=== PATIENT | male | born 1975 | race Caucasian/White ===

== ENCOUNTER 2017-06-24 09:30 | Emergency (ER) | payer MEDICAID, SELFPAY ==
[2017-06-24 09:33] VITALS: BP 126/100; PULSE 104; RESP 16; TEMP 37.1; O2SAT 97; BMI 29.9
--- NOTE | 2017-06-24 10:26 | ED.DCSUM_ITS ---
- ER Visit Summary Date of Service: 06/24/17 Chief Complaint: [Sore throat] History of Present Illness: The patient is a 42 M [presents to the emergency department with a sore throat that started yesterday. Patient denies cough. Patient has had some chills and subjective fever. He denies any sick contacts. Patient describes painful swallowing.] Physical Examination: [HEENT-PERRLA, EOMI. Cranial nerves II through XII grossly intact. TMs clear. Mucous membranes moist. Bilateral anterior cervical adenopathy. Patient has pharyngeal erythema. No trismus. Small tonsillar exudates. Cardiovascular-regular rate and rhythm without murmur or ectopy Lungs-clear to auscultation, chest wall stable without crepitus or subcu emphysema Abdomen-normoactive bowel sounds, soft, nontender, no rebound or rigidity, no peritoneal signs. Extremities-intact ?4, normal range of motion, normal pulses, atraumatic] Test Results: [Rapid strep screen was positive] Emergency Department Course and Treatment: [Patient was started on amoxicillin] Treatment Plan: [Amoxicillin, saltwater gargles, ibuprofen for discomfort] Disposition: [Discharged to home in stable condition. Patient advised to return if increased difficulty swallowing or condition should worsen in any way. ] Impression: [Strep pharyngitis] This note was generated with [employer] dictation software. It may contain incorrect words, spelling, and punctuation that were not noted in review of the chart prior to signing ED Disposition - Plan for ED Patient: Chief Complaint: Sore Throat Referrals: Care Physician,No Primary [Primary Care Provider] -
--- NOTE | 2017-06-24 10:26 | ED.DEP ---
ED Disposition - Plan for ED Patient: Chief Complaint: Sore Throat Instructions: ED Strep Pharyngitis Conf Prescriptions: Amoxicillin 500 mg PO TID #30 tab Referrals: Care Physician,No Primary [Primary Care Provider] - Grady Steen MD [STAFF PHYSICIAN] - 5-7 Days
[2017-06-24] MEDS: AMOXICILLIN 500 MG CAPSULE PO (10:34)
[2017-06-24 10:36] VITALS: BP 134/97; PULSE 74; RESP 22; O2SAT 98
--- NOTE | 2017-06-24 10:36 | ED.RN ---
THIS NURSE REVIEWED D/C INSTRUCTIONS WITH PT. PT VERBALIZED UNDERSTANDING OF INSTRUCTIONS. PT DENIES FURTHER NEEDS OR QUESTIONS AT THIS TIME. PT AMBULATES FROM ROOM ON OWN WITHOUT ASSISTANCE FROM STAFF
== END 2017-06-24 10:37 | disposition home or self-care (01) ==
LOC: ED 10:05
PROVIDERS: Emergency Provider Emergency Medicine
DX: J02.0 Streptococcal pharyngitis (principal); Z72.0 Tobacco use
CPT/HCPCS: 87077; 87880; 99283

== ENCOUNTER 2017-07-06 14:54 | Emergency (ER) | payer MEDICAID, SELFPAY ==
[2017-07-06 14:59] VITALS: BP 158/103; PULSE 105; RESP 24; TEMP 36.7; O2SAT 97; BMI 29.9
--- NOTE | 2017-07-06 15:22 | EKG12_ITS ---
Test Reason : Blood Pressure : / mmHG Vent. Rate : 103 BPM Atrial Rate : 103 BPM P-R Int : 162 ms QRS Dur : 096 ms QT Int : 346 ms P-R-T Axes : 048 045 042 degrees QTc Int : 453 ms Sinus tachycardia with occasional Premature ventricular complexes Otherwise normal ECG Confirmed by SWEETIE ALLEN ([id number]), marketing editor YASMIN TURK ([id number] on 07/09/2017 1:32:07 PM Referred By: TORI Confirmed By:SWEETIE ALLEN
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
[2017-07-06 16:34] VITALS: RESP 15
--- NOTE | 2017-07-06 16:55 | ED.DEP ---
ED Disposition - Plan for ED Patient: Disposition: Home or Assisted Living Chief Complaint: Subst Abuse Instructions: ED Drug Abuse General Referrals: Rachid Cary MD [NON-STAFF] - As Needed Additional Instructions: I would strongly encourage you to do either outpatient or inpatient drug counseling and detox.
[2017-07-06 17:02] VITALS: BP 170/99; PULSE 103; RESP 20; O2SAT 95
== END 2017-07-06 17:02 | disposition home or self-care (01) ==
PROVIDERS: Emergency Provider Emergency Medicine
DX: F15.10 Other stimulant abuse, uncomplicated (principal); Z72.0 Tobacco use
CPT/HCPCS: 93005; 99285

== ENCOUNTER → 2017-08-21 07:32 | Outpatient (CLI) | payer MEDICAID, SELFPAY | PROVIDERS: Visit Provider Orthopaedic Surgery | DX: Z01.818 Encounter for other preprocedural examination (principal) ==

== ENCOUNTER 2017-11-01 23:08 | Emergency (ER) | payer MEDICAID, SELFPAY ==
[2017-11-01 23:10] VITALS: BP 160/117; PULSE 92; RESP 20; TEMP 36.8; O2SAT 96; BMI 29.5
[2017-11-02 00:18] LABS: Absolute Lymphocyte Count 2.74 X10^3/ul (0.83-4.51); Absolute Neutrophil Count 3.5 X10^3/uL (2.0-7.7); Basophil# 0.03 X10^3/uL; Basophil% 0.4 % (0-1); Eosinophils% 2.7 % (0-5); Hematocrit 41.5 % (40-54); Hemoglobin 14.4 g/dl (13.0-16.5); Lymphocyte # 2.74 X10^3/ul (4.0); Lymphocyte % 37.2 % (19-41); Mean Corp Hgb Conc 34.7 g/gl (32-36); Mean Corpuscular Volume 86.5 fL (80-94); Mean Platelet Vol. 10.3 fl (6.2-12.0); Monocyte# 0.85 X10^3/uL; Monocyte% 11.5 % (0-10); Neutrophil # 3.54 X10^3/uL (2.7-7.7); Neutrophil % 48.1 % (47-70); Platelet Count 204 K/mm3 (150-450); RBC Distribution Width SD 37.8 fl (35.1-43.9); White Blood Count 7.4 K/mm3 (4.4-11.0)
[2017-11-02 00:23] LABS: POSITIVE COUNT NO; POSITIVE DIFFERENTIAL NO; POSITIVE MORPHOLOGY NO
[2017-11-02 00:31] LABS: Amphetamine Urine VISTA POSITIVE (<1000 ng/mL); Barbiturate Urine VISTA NEGATIVE (< 200 ng/mL); Benzodiazepine Urine VISTA POSITIVE (< 200 ng/mL); Cocaine Urine VISTA NEGATIVE (< 300 ng/mL); Ecstacy Urine VISTA POSITIVE (< 500 ng/mL); Methadone Urine VISTA NEGATIVE (< 300 ng/mL); PCP Urine VISTA NEGATIVE (< 25 ng/mL); THC Urine VISTA NEGATIVE (< 50 ng/mL); Vista UDS pH Range 5
[2017-11-02 00:38] LABS: ALB/GLOB Ratio 1.3 RATIO (0.9-2.4); AST(SGOT) 24 U/L (15-37); Alanine Aminotransfer ALT/SGPT 30 U/L (16-61); Albumin, Serum 4.2 g/dL (3.2-5.0); Alkaline Phosphatase 69 U/L (45-117); Anion Gap 7 (5-15); BUN 15 mg/dL (7-18); BUN/Creat Ratio 11.6 RATIO (10-20); Calcium,Total 8.7 mg/dL (8.5-10.1); Chloride 106 mmol/L (98-107); Creatinine, Serum 1.29 mg/dL (0.70-1.30); EST Glomerular Filtration Rate 65 mL/min (>60); Est Glom Filt Rate - Afr Amer 79 mL/min (>60); Estimated Creatinine Clearance 94.97 ml/min; Globulin 3.2 g/dL (2.2-4.2); Glucose 96 mg/dL (74-106); Protein, Total 7.4 g/dL (6.4-8.2); Sodium Level 142 mmol/L (136-145)
[2017-11-02 00:40] LABS: Alcohol, Blood (Medical)-Serum < 3.0 mg/dL
[2017-11-02 00:57] VITALS: BP 129/73; PULSE 92; RESP 17; O2SAT 96
--- NOTE | 2017-11-02 00:59 | ED.DCSUM_ITS ---
- ER Visit Summary Date of Service: 11/02/17 Chief Complaint: Meth abuse and hallucinations History of Present Illness: The patient is a 42 M who presents with hallucinations. He has a history of polysubstance drug abuse. He does admit to methamphetamine use although he states he is no longer using heroin. The patient states that he was with his brother and stated he had seen a police car and his brother explained that there was not a police car. After I spoke to the family they state that he was also stating there were multiple police officers hiding in the bushes and was trying to speak to someone over the fence when no one was there. The patient denies any suicidal or homicidal ideation. He does not feel he is risk to himself. Family agrees that he has made no suicidal threats and has no suicidal plan and they were concerned that he may be having a psychotic break due to his drug use. The patient denies any medical complaints. He denies chest pain shortness of breath nausea vomiting diarrhea. Physical Examination: Afebrile initial blood pressure 160/117 vitals otherwise normal Moist mucous membranes Heart regular rate and rhythm Lungs clear Abdomen soft Alert Test Results: CBC BMP hepatic function normal. Urine drug screen positive for amphetamines methamphetamines and benzodiazepines. Alcohol is negative. Emergency Department Course and Treatment: Patient actually has been calm and cooperative throughout his course here in the emergency department. He is able to answer questions clearly for me currently. He is alert and oriented ?3. He does not appear to be internally stimulated. I do believe all of his delusions and paranoia earlier were related to drug abuse. I do believe he can be safely discharged at this time. Treatment Plan: [] Disposition: Discharge Impression: Polysubstance abuse Drug-induced psychosis This note was generated with [employer] dictation software. It may contain incorrect words, spelling, and punctuation that were not noted in review of the chart prior to signing ED Disposition - Plan for ED Patient: Chief Complaint: Alt LOC Referrals: Peggy Jeffrey NP-C [Primary Care Provider] -
--- NOTE | 2017-11-02 00:59 | ED.DEP ---
ED Disposition - Plan for ED Patient: Chief Complaint: Alt LOC Instructions: ED Drug Abuse General Referrals: Peggy Jeffrey NP-C [Primary Care Provider] -
[2017-11-02 01:27] VITALS: BP 129/73; PULSE 91; RESP 17; O2SAT 96
== END 2017-11-02 01:28 | disposition home or self-care (01) ==
LOC: ED 23:44
PROVIDERS: Emergency Provider Emergency Medicine; Family Provider Nurse Practitioner Family; PCP Nurse Practitioner Family
DX: F15.151 Other stimulant abuse with stimulant-induced psychotic disorder with hallucinations (principal); F13.151 Sedative, hypnotic or anxiolytic abuse with sedative, hypnotic or anxiolytic-induced psychotic disorder with hallucinations; F15.150 Other stimulant abuse with stimulant-induced psychotic disorder with delusions; F13.1 Sedative, hypnotic or anxiolytic-related abuse
CPT/HCPCS: 80053; 80307; 80320; 85025; 99282; G0480

== ENCOUNTER 2018-04-04 12:25 | Inpatient (IN) | payer MEDICAID, SELFPAY ==
[2018-04-04 12:29] VITALS: BP 110/72; PULSE 100; RESP 16; TEMP 36.7; O2SAT 98; BMI 30.9
[2018-04-04] MEDS: Acetaminophen 500 MG Tablet 1000 MG PO ×2 (13:41→20:16)
[2018-04-04] MEDS: oxyCODONE 5 MG Tablet 10 MG PO ×3 (13:42→21:37)
[2018-04-04] MEDS: fentaNYL 25 MCG Patch TRANSDERM. (13:45)
[2018-04-04 15:00] VITALS: PULSE 100
[2018-04-04] MEDS: Gabapentin 300 MG Capsule PO (18:06)
[2018-04-04] MEDS: Senna/Docusate Sodium 1 Tablet 2 TABLET PO (20:17)
[2018-04-04] MEDS: Celecoxib 100 MG Capsule PO (20:17)
[2018-04-04] MEDS: hydrOXYzine PAM 25 MG Capsule PO (20:17)
[2018-04-04 20:33] VITALS: BP 149/79; PULSE 100; RESP 16; TEMP 36.6; O2SAT 98
[2018-04-05] MEDS: oxyCODONE 5 MG Tablet 10 MG PO ×8 (00:55→23:31)
--- NOTE | 2018-04-05 00:59 | NURSING ---
Refusing SCDs - states I can't sleep with them on Also states I keep moving my legs around anyways. Very resistant to wearing. Informed that SCDs help to prevent blood clots. Refuses at this time to wear SCDS
[2018-04-05] MEDS: Acetaminophen 500 MG Tablet 1000 MG PO ×3 (06:11→20:29)
[2018-04-05 06:19] LABS: Absolute Lymphocyte Count 2.81 X10^3/ul (0.83-4.51); Basophil# 0.03 X10^3/uL; Basophil% 0.3 % (0-1); Eosinophil# 0.33 X10^3/uL; Eosinophils% 3.8 % (0-5); Hematocrit 39.3 % (40-54); Hemoglobin 12.9 g/dl (13.0-16.5); Lymphocyte # 2.81 X10^3/ul (4.0); Mean Corp Hgb Conc 32.8 g/gl (32-36); Mean Corpuscular Hgb 28.9 pg (27.0-32.0); Mean Corpuscular Volume 87.9 fL (80-94); Mean Platelet Vol. 10.2 fl (6.2-12.0); Monocyte# 0.58 X10^3/uL; Monocyte% 6.6 % (0-10); Neutrophil # 5.02 X10^3/uL (2.7-7.7); Neutrophil % 57.1 % (47-70); Platelet Count 224 K/mm3 (150-450); RBC Distribution Width CV 12.9 % (11.6-14.6); RBC Distribution Width SD 41.7 fl (35.1-43.9); Red Blood Count 4.47 M/mm3 (4.6-6.2); White Blood Count 8.8 K/mm3 (4.4-11.0)
[2018-04-05 06:24] LABS: POSITIVE COUNT NO; POSITIVE DIFFERENTIAL NO; POSITIVE MORPHOLOGY NO
[2018-04-05 06:35] LABS: Anion Gap 8 (5-15); BUN 12 mg/dL (7-18); BUN/Creat Ratio 18.7 RATIO (10-20); Calcium,Total 8.5 mg/dL (8.5-10.1); Chloride 106 mmol/L (98-107); Creatinine, Serum 0.64 mg/dL (0.70-1.30); EST Glomerular Filtration Rate 146 mL/min (>60); Est Glom Filt Rate - Afr Amer 176 mL/min (>60); Estimated Creatinine Clearance 189.49 ml/min; Glucose 101 mg/dL (74-106); Magnesium 2.1 mg/dL (1.6-2.6); Potassium 3.9 mmol/L (3.5-5.1); Sodium Level 141 mmol/L (136-145)
[2018-04-05 06:47] LABS: Phosphorus 4.5 mg/dL (2.5-4.9)
[2018-04-05 07:00] VITALS: BP 122/71; PULSE 88; RESP 16; TEMP 37.1; O2SAT 99
[2018-04-05] MEDS: Gabapentin 300 MG Capsule PO ×2 (07:32→16:37)
[2018-04-05] MEDS: Senna/Docusate Sodium 1 Tablet 2 TABLET PO ×2 (07:32→20:30)
[2018-04-05] MEDS: Celecoxib 100 MG Capsule PO ×2 (07:32→20:30)
[2018-04-05] MEDS: Famotidine 20 MG Tablet PO (07:32)
[2018-04-05] MEDS: Multivitamins,Ther W-Minerals Tablet 1 TABLET PO (07:32)
[2018-04-05] MEDS: Ascorbic Acid 500 MG Tablet PO (07:32)
[2018-04-05] MEDS: Enoxaparin 40 MG/0.4 ML Syringe SC (07:33)
[2018-04-05] MEDS: Calcium Carbonate 500 MG Tablet PO (07:33)
[2018-04-05 09:06] LABS: Vitamin D,25 Hydroxy 38.6 ng/mL (29.95-100.01)
--- NOTE | 2018-04-05 10:37 | HP.PCM.COS_ITS ---
History of Present Illness Date of Admission: 04/04/18 Chief Complaint: Bilateral Total Knee Replacement The patient is a 43 year old right handed male, who is admitted to the rehab unit for rehabilitation, s/p bilateral total knee replacement at the [facility] by Dr. Rashel Travis. Post Op recovery was uneventful. He has a PMH of Osteoarthritis, and Opioid abuse, which he is on Suboxone for. He is WBAT, he has Silverlon dressing to bilateral knees, dressings are C/D/I, dressings are to be removed 04/08/18. He lives with his brother in a single story home with 3 steps to get into the house. The plan is to return home to his mother house which is also a single story dwelling with 3 steps to get into the home. He was previously completely functionally independent and is admitted to the rehab unit in order to restore his previous level of functional independence. Past Medical History Allergies No Known Allergies Allergy (Verified 07/04/17 09:39) Home Medications: Ambulatory Orders Medication Instructions Recorded Buprenorphine HCl/Naloxone HCl 1 ea SL BID 07/30/14 [Suboxone 2 mg-0.5 mg Sl Film] Celecoxib [Celebrex] 100 mg PO BID 06/24/17 Acetaminophen [Tylenol Extra 1,000 mg PO TID 04/04/18 Strength] Ascorbic Acid [Vitamin C] 500 mg PO DAILY@0800 04/04/18 Cholecalciferol (VIT D3) [Vitamin 1,000 unit PO DAILY 04/04/18 D] Gabapentin [Neurontin] 300 mg PO BIDCM 04/04/18 Multivitamins,Ther W-Minerals 1 tablet PO DAILY 04/04/18 [Multivitamin With Minerals] Nicotine [Nicoderm Cq (PBKC)] 21 mg TRANSDERM. DAILY 04/04/18 Oxycodone [Oxyir] 10 mg PO Q3H PRN 04/04/18 fentaNYL patch [Duragesic patch] 25 mcg TRANSDERM. Q72H 04/04/18 hydrOXYzine pamoate capsule 25 mg PO QHS 04/04/18 [Vistaril pamoate capsule] Surgical History: Surgical History (Last Updated 07/04/17 @ 09:46 by Patito Love) S/P left knee surgery Z98.890 ACL meniscus repair 2009 Surgical History: - - Anterior cruciate ligament repair 2008, and Mouth surgery 2006 Psychiatric History: Anxiety Lives: With Family Smoking Status: Current every day smoker Tobacco Use: Cigarettes Alcohol: Occasional Drugs: - - H/O opioid abuse Review of Systems Constitutional: Denies: Chills, Fever, Weight Change HEENT: Denies: Head Aches, Sinus Congestion, Sinus Drainage Cardiovascular: Denies: Chest Pain, Palpitations Respiratory: Denies: Cough, Shortness of breath at rest, Sputum production Gastrointestinal: Denies: Abdominal Pain, Nausea, Vomiting Genitourinary: Denies: Dysuria Musculoskeletal: Denies: Joint Pain, Joint Tenderness Skin: Denies: Rash, Wounds Neurological: Denies: Numbness, Tingling, Focal weakness Psychiatric: Denies: Anxiety, Depression, Homicidal Ideations, Suicidal Ideations Hematologic/ Lymphatic: Denies: Easy Bruising, Easy Bleeding VTE Information - Inpt Only VTE Present on Admission: No VTE Mechan Device Prophylaxis: Knee High DARRYL Hose VTE Pharm Prophylaxis ordered?: Yes - Physical Exam General: Alert, Oriented x3, Cooperative HEENT: Atraumatic, PERRLA, EOMI, Normocephalic Neck: Supple, No JVD, Negative Carotid Bruits Lungs: Clear to auscultation, Normal air movement Cardiovascular: Regular rate, No murmurs Abdomen: Bowel Sounds Present, Soft, Non Tender Extremities: No edema, Capillary Refill Less than 3 Seconds Skin: No rashes, No breakdown Musculoskeletal: No Tenderness to Palpation of Joints or Extremities Neurological: Cranial nerves II-XII grossly intact Psych/Mental Status: Normal Affect, Appropriate, Alert and oriented to time, place, person, mood and affect Vital Signs Temp Pulse Resp BP Pulse Ox 98.8 F 88 16 122/71 H 99 04/05/18 07:00 04/05/18 07:00 04/05/18 07:00 04/05/18 07:00 04/05/18 07:00 Oxygen Delivery Method Room Air Weight: 118.3 kg Body Mass Index (BMI) 30.9 Intake and Output for Last 24 Hours 04/03/18 04/04/18 04/05/18 23:59 23:59 23:59 Intake Total 360 / 360 Output Total 800 / 800 450 / 450 Balance -800 / -800 -90 / -90 Laboratory Tests Past 24 Hrs 04/05/18 04/05/18 04/05/18 05:25 05:25 05:25 WBC 8.8 RBC 4.47 L Hgb 12.9 L Hct 39.3 L MCV 87.9 MCH 28.9 MCHC 32.8 RDW 12.9 RDW Differential 41.7 Plt Count 224 MPV 10.2 Immature Gran % (Auto) 0.200 Neut % (Auto) 57.1 Lymph % (Auto) 32.0 [place] % (Auto) 6.6 Eos % (Auto) 3.8 Baso % (Auto) 0.3 Absolute Neuts (auto) 5.0 Absolute Lymphs (auto) 2.81 Total Counted Not Reportable Sodium 141 Potassium 3.9 Chloride 106 Carbon Dioxide 27.0 Anion Gap 8 BUN 12 Creatinine 0.64 L Estim Creat Clear Calc 189.49 Est GFR (MDRD) Af Amer 176 Est GFR (MDRD) Non-Af 146 BUN/Creatinine Ratio 18.7 Glucose 101 Calcium 8.5 Phosphorus 4.5 Magnesium 2.1 Vitamin D 25-Hydroxy 04/05/18 05:25 WBC RBC Hgb Hct MCV MCH MCHC RDW RDW Differential Plt Count MPV Immature Gran % (Auto) Neut % (Auto) Lymph % (Auto) [place] % (Auto) Eos % (Auto) Baso % (Auto) Absolute Neuts (auto) Absolute Lymphs (auto) Total Counted Sodium Potassium Chloride Carbon Dioxide Anion Gap BUN Creatinine Estim Creat Clear Calc Est GFR (MDRD) Af Amer Est GFR (MDRD) Non-Af BUN/Creatinine Ratio Glucose Calcium Phosphorus Magnesium Vitamin D 25-Hydroxy 38.6 Active Medications Acetaminophen (Tylenol) 1,000 mg PO TID [facility] Last Admin: 04/05/18 06:11 Dose: 1,000 mg Ascorbic Acid (Vitamin C) 500 mg PO DAILY@0800 [facility] Last Admin: 04/05/18 07:32 Dose: 500 mg Bisacodyl (Dulcolax) 10 mg RECTAL .PRN X 1 PRN PRN Reason: Constipation Calcium Carbonate (Tums) 500 mg PO DAILY@0800 [facility] Last Admin: 04/05/18 07:33 Dose: 500 mg Celecoxib (Celebrex) 100 mg PO BID [facility] Last Admin: 04/05/18 07:32 Dose: 100 mg Cholecalciferol (Vitamin D) 1,000 unit PO DAILY [facility] Last Admin: 04/05/18 07:32 Dose: 1,000 unit Enoxaparin Sodium (Lovenox) 40 mg SC DAILY [facility] Last Admin: 04/05/18 07:33 Dose: 40 mg Famotidine (Pepcid) 20 mg PO DAILY [facility] Last Admin: 04/05/18 07:32 Dose: 20 mg Fentanyl (Duragesic Patch) 25 mcg TRANSDERM. Q72H [facility] Last Admin: 04/04/18 13:45 Dose: 25 mcg [facility]ap[facility]in) [facility] Last Admin: 04/05/18 07:32 Dose: 300 mg Hydroxyzine Pamoate (Vistaril Pamoate Capsule) 25 mg PO QHS [facility] Last Admin: 04/04/18 20:17 Dose: 25 mg Magnesium Hydroxide (Milk Of Magnesia) 30 ml PO .PRN X 1 PRN PRN Reason: Constipation Multivitamins/Minerals (Multivitamin With Minerals) [facility] Last Admin: 04/05/18 07:32 Dose: 1 tablet Nicotine (Nicoderm Cq (Pbkc)) 21 mg TRANSDERM. DAILY [facility] Last Admin: 04/05/18 08:38 Dose: 21 mg Oxycodone HCl (Oxyir) 10 mg PO Q3H PRN PRN Reason: SEVERE PAIN (6-10/10) Last Admin: 04/05/18 07:33 Dose: 10 mg Senna/Docusate Sodium (Senokot-S, Stefanie-Colace) 2 tablet PO BID [facility] Last Admin: 04/05/18 07:32 Dose: 2 tablet Assessment/Plan Debility S/P Bilateral total knee replacement. Goal goal of rehab is church of functional independence. Plan: - Physical therapy for gait and balance - Occupational Therapy for ADLs - As needed analgesics - Bowel protocol - DVT prophylaxis: SCDs, Lovenox - B/L TKA Incisions covered with Silverlon dressings, dressings are C/D/I, dressings are to be removed 04/08/18 - Tobacco dependence = nicotine patch for tobacco cravings - Weight bearing status => WBAT, BLE - Fall precaution
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
[2018-04-05 19:39] VITALS: BP 144/85; PULSE 103; RESP 16; TEMP 36.8; O2SAT 97
[2018-04-05] MEDS: hydrOXYzine PAM 25 MG Capsule PO (20:31)
[2018-04-06] MEDS: oxyCODONE 5 MG Tablet 10 MG PO ×7 (02:57→23:40)
[2018-04-06] MEDS: Acetaminophen 500 MG Tablet 1000 MG PO ×3 (06:32→21:55)
[2018-04-06 08:37] VITALS: BP 142/88; PULSE 92; RESP 16; TEMP 36.6; O2SAT 96
[2018-04-06] MEDS: Gabapentin 300 MG Capsule PO ×2 (10:08→17:07)
[2018-04-06] MEDS: Ascorbic Acid 500 MG Tablet PO (10:09)
[2018-04-06] MEDS: Multivitamins,Ther W-Minerals Tablet 1 TABLET PO (10:09)
[2018-04-06] MEDS: Calcium Carbonate 500 MG Tablet PO (10:09)
[2018-04-06] MEDS: Famotidine 20 MG Tablet PO (10:10)
[2018-04-06] MEDS: Senna/Docusate Sodium 1 Tablet 2 TABLET PO ×2 (10:10→20:28)
[2018-04-06] MEDS: Celecoxib 100 MG Capsule PO ×2 (10:10→20:28)
[2018-04-06] MEDS: Enoxaparin 40 MG/0.4 ML Syringe SC (10:12)
--- NOTE | 2018-04-06 15:47 | NURSING ---
Pt complaining of L. knee dressing is wet underneath from shower this AM requesting this RN to change. Dressing removed, incision is clean, dry and intact, no redness noted, incision is Dermabond, replaced with new dressing, pt tolerated well.
[2018-04-06 19:47] VITALS: BP 148/91; PULSE 89; RESP 16; TEMP 36.7; O2SAT 98
[2018-04-06] MEDS: hydrOXYzine PAM 25 MG Capsule PO (20:29)
--- NOTE | 2018-04-07 00:23 | NURSING ---
Pt ambulated around unit with walker and staff x1.
[2018-04-07] MEDS: oxyCODONE 5 MG Tablet 10 MG PO ×7 (02:54→22:45)
[2018-04-07] MEDS: Acetaminophen 500 MG Tablet 1000 MG PO ×3 (06:39→21:21)
[2018-04-07 06:57] VITALS: BP 136/89; PULSE 86; RESP 18; TEMP 36.6; O2SAT 98
[2018-04-07] MEDS: Calcium Carbonate 500 MG Tablet PO (09:25)
[2018-04-07] MEDS: Gabapentin 300 MG Capsule PO ×2 (09:26→16:14)
[2018-04-07] MEDS: Famotidine 20 MG Tablet PO (09:26)
[2018-04-07] MEDS: Ascorbic Acid 500 MG Tablet PO (09:26)
[2018-04-07] MEDS: Senna/Docusate Sodium 1 Tablet 2 TABLET PO (09:26)
[2018-04-07] MEDS: Celecoxib 100 MG Capsule PO ×2 (09:26→21:21)
[2018-04-07] MEDS: Multivitamins,Ther W-Minerals Tablet 1 TABLET PO (09:26)
[2018-04-07] MEDS: Enoxaparin 40 MG/0.4 ML Syringe SC (09:27)
[2018-04-07] MEDS: fentaNYL 25 MCG Patch TRANSDERM. (13:26)
--- NOTE | 2018-04-07 13:46 | PCA ---
pt. ambulated around unit x1 time with contact guard assistance, and used nustep for 10 minutes.
--- NOTE | 2018-04-07 14:40 | PN.NEURO_ITS ---
Subjective: Shunt is status post 1 mile on the NuStep. He says he is improving with controlled pain. No complaints. Objective: Ambulating in vela with walker - Physical Exam General: Alert, Oriented x3, Cooperative, No apparent distress Neurological: Cranial nerves II-XII grossly intact Psych/Mental Status: Normal Affect Vital Signs Temp Pulse Resp BP Pulse Ox 36.6 C 86 18 136/89 H 98 04/07/18 06:57 04/07/18 06:57 04/07/18 06:57 04/07/18 06:57 04/07/18 06:57 Oxygen Delivery Method Room Air Weight: 118.3 kg Body Mass Index (BMI) 30.9 Intake and Output for Last 24 Hours 04/05/18 04/06/18 04/07/18 23:59 23:59 23:59 Intake Total 960 / 960 260 / 260 240 / 240 Output Total 450 / 450 Balance 510 / 510 260 / 260 240 / 240 Current Medications Generic Name Dose Route Start Last Admin Trade Name Freq PRN Reason Stop Dose Admin Acetaminophen 1,000 mg 04/04/18 14:00 04/07/18 13:26 Tylenol PO 1,000 mg TID [facility] Administration Ascorbic Acid 500 mg 04/05/18 08:00 04/07/18 09:26 Vitamin C PO 500 mg DAILY@0800 [facility] Administration Bisacodyl 10 mg 04/04/18 12:46 Dulcolax RECTAL .PRN X 1 PRN Constipation Calcium Carbonate 500 mg 04/05/18 08:00 04/07/18 09:25 Tums PO 500 mg DAILY@0800 [facility] Administration Celecoxib 100 mg 04/04/18 22:00 04/07/18 09:26 Celebrex PO 100 mg BID [facility] Administration Cholecalciferol 1,000 unit 04/05/18 10:00 04/07/18 09:26 Vitamin D PO 1,000 unit DAILY [facility] Administration Enoxaparin Sodium 40 mg 04/05/18 10:00 04/07/18 09:27 Lovenox SC 40 mg DAILY [facility] Administration Famotidine 20 mg 04/05/18 10:00 04/07/18 09:26 Pepcid PO 20 mg DAILY [facility] Administration Fentanyl 25 mcg 04/04/18 13:30 04/07/18 13:26 Duragesic Patch TRANSDERM. 25 mcg Q72H [facility] Administration Gabapentin 300 mg 04/04/18 17:00 04/07/18 09:26 Neurontin PO 300 mg BIDCM [facility] Administration Hydroxyzine Pamoate 25 mg 04/04/18 22:00 04/06/18 20:29 Vistaril Pamoate Capsule PO 25 mg QHS [facility] Administration Magnesium Hydroxide 30 ml 04/04/18 12:46 Milk Of Magnesia PO .PRN X 1 PRN Constipation Multivitamins/Minerals 1 tablet 04/05/18 08:00 04/07/18 09:26 Multivitamin With Minerals PO 1 tablet DAILYCM [facility] Administration Nicotine 21 mg 04/05/18 10:00 04/07/18 09:25 Nicoderm Cq ([facility]) TRANSDERM. 21 mg DAILY [facility] Administration Oxycodone HCl 10 mg 04/04/18 13:21 04/07/18 12:45 Oxyir PO 10 mg Q3H PRN Administration SEVERE PAIN (6-10/10) Senna/Docusate Sodium 2 tablet 04/04/18 22:00 04/07/18 09:26 Senokot-S, Stefanie-Colace PO 2 tablet BID [facility] Administration Medical Necessity - Tobacco Use Smoking Status: Current every day smoker Tobacco Use: Cigarettes Assessment/Plan Debility status post bilateral total knee replacement performed 04/01/18 at the [facility] in [place]. Goal of rehab is pentecostal of prior level of functional independence Plan: Physical therapy for gait and balance Occupational Therapy for ADLs Bowel protocol PRN analgesics, street of dependence. Patient is to follow-up with his counselor at the [facility] after discharge.
--- NOTE | 2018-04-07 18:03 | PCM.PROGNOTE ---
Subjective: 43 YO M with a hx of polysubstance abuse who was sent to the [facility] rehab unit after Ambulated 200 ft yesterday with a few breaks in between. He states his pain is adequately controlled. Denies nausea or vomiting. His bowels are working fine. Denies lightheadedness. His only complaint today is pain in the quadriceps muscles bilaterally. Objective: PHYSICAL EXAM: GENERAL: alert, oriented X 3, Cooperative, NAD ORAL: moist mucosa, no mucosal lesions NECK: No JVD, supple, trachea midline LUNGS: CTA, symmetric chest expansion HEART: RRR, Normal S1 and S2, no rub, no gallop ABDOMEN: soft, NT, ND, BS present, no guarding with palpation EXTREMITIES: no edema, no cyanosis, no calf tenderness, bandages are dry and intact over both knees SKIN: No rashes, no breakdown NEUROLOGIC: no focal neurologic deficits PSYCH: appropriate, normal affect, pleasant - Physical Exam Vital Signs Temp Pulse Resp BP Pulse Ox 97.8 F 86 18 136/89 H 98 04/07/18 06:57 04/07/18 06:57 04/07/18 06:57 04/07/18 06:57 04/07/18 06:57 Oxygen Delivery Method Room Air Weight: 260 lb 12.909 oz Body Mass Index (BMI) 30.9 Intake and Output for Last 24 Hours 04/05/18 04/06/18 04/07/18 23:59 23:59 23:59 Intake Total 960 / 960 260 / 260 240 / 240 Output Total 450 / 450 350 / 350 Balance 510 / 510 260 / 260 -110 / -110 Medical Necessity - Tobacco Use Smoking Status: Current every day smoker Tobacco Use: Cigarettes Assessment/Plan Impressions 1. S/P BL knee replacements - on Lovenox for DVT prophylaxis 2. hx of polysubstance abuse. Pain is well managed at this point but, he may require support at 180 to come completely off narcotics. 3. Tobacco dependence Continue with current treatment plan
[2018-04-07 19:15] VITALS: BP 135/82; PULSE 99; RESP 16; TEMP 36.6; O2SAT 95
[2018-04-07] MEDS: hydrOXYzine PAM 25 MG Capsule PO (21:21)
--- NOTE | 2018-04-07 23:26 | NURSING ---
Pt ambulated around unit with gait belt in place, grippy socks applied, nurse, & wheeled walker assist.
[2018-04-08] MEDS: oxyCODONE 5 MG Tablet 10 MG PO ×6 (03:06→20:56)
[2018-04-08] MEDS: Acetaminophen 500 MG Tablet 1000 MG PO ×3 (05:13→20:57)
--- NOTE | 2018-04-08 05:35 | NURSING ---
pt declined to do adls this am d/t not sleeping well, pt informed that if he wanted to shower that it could be later this today possibly in the afternoon. pt acknowledged stating that was fine. rn aware
[2018-04-08 07:49] VITALS: BP 141/89; PULSE 88; RESP 18; TEMP 36.6; O2SAT 94
[2018-04-08] MEDS: Ascorbic Acid 500 MG Tablet PO (07:52)
[2018-04-08] MEDS: Enoxaparin 40 MG/0.4 ML Syringe SC (07:52)
[2018-04-08] MEDS: Famotidine 20 MG Tablet PO (07:52)
[2018-04-08] MEDS: Calcium Carbonate 500 MG Tablet PO (07:53)
[2018-04-08] MEDS: Multivitamins,Ther W-Minerals Tablet 1 TABLET PO (07:53)
[2018-04-08] MEDS: Celecoxib 100 MG Capsule PO ×2 (07:53→20:58)
[2018-04-08] MEDS: Senna/Docusate Sodium 1 Tablet 2 TABLET PO (07:53)
[2018-04-08] MEDS: Gabapentin 300 MG Capsule PO ×2 (07:53→17:34)
--- NOTE | 2018-04-08 12:21 | PN.NEURO_ITS ---
Subjective: Patient seen and examined. Still having some issues with pain, it is improving. He is tolerating therapy, and doing very well. Denies any shortness of breath or chest pains. No issues with GI/. - Physical Exam General: Alert, Oriented x3, Cooperative HEENT: Atraumatic, PERRLA, EOMI, Normocephalic Neck: Supple, No JVD, Negative Carotid Bruits Lungs: Clear to auscultation, Normal air movement Cardiovascular: Regular rate, No murmurs Abdomen: Bowel Sounds Present, Soft, Non Tender Extremities: No edema, Capillary Refill Less than 3 Seconds Skin: No rashes, No breakdown Musculoskeletal: No Tenderness to Palpation of Joints or Extremities Neurological: Cranial nerves II-XII grossly intact Psych/Mental Status: Normal Affect, Appropriate, Alert and oriented to time, place, person, mood and affect Vital Signs Temp Pulse Resp BP Pulse Ox 97.8 F 88 18 141/89 H 94 04/08/18 07:49 04/08/18 07:49 04/08/18 07:49 04/08/18 07:49 04/08/18 07:49 Oxygen Delivery Method Room Air Weight: 118.3 kg Body Mass Index (BMI) 30.9 Intake and Output for Last 24 Hours 04/06/18 04/07/18 04/08/18 23:59 23:59 23:59 Intake Total 260 / 260 240 / 240 Output Total 1450 / 1450 Balance 260 / 260 -1210 / -1210 Active Medications Acetaminophen (Tylenol) 1,000 mg PO TID [facility] Last Admin: 04/08/18 13:31 Dose: 1,000 mg Ascorbic Acid (Vitamin C) 500 mg PO DAILY@0800 [facility] Last Admin: 04/08/18 07:52 Dose: 500 mg Bisacodyl (Dulcolax) 10 mg RECTAL .PRN X 1 PRN PRN Reason: Constipation Calcium Carbonate (Tums) 500 mg PO DAILY@0800 [facility] Last Admin: 04/08/18 07:53 Dose: 500 mg Celecoxib (Celebrex) 100 mg PO BID [facility] Last Admin: 04/08/18 07:53 Dose: 100 mg Cholecalciferol (Vitamin D) 1,000 unit PO DAILY [facility] Last Admin: 04/08/18 07:52 Dose: 1,000 unit Enoxaparin Sodium (Lovenox) 40 mg SC DAILY [facility] Last Admin: 04/08/18 07:52 Dose: 40 mg Famotidine (Pepcid) 20 mg PO DAILY [facility] Last Admin: 04/08/18 07:52 Dose: 20 mg Fentanyl (Duragesic Patch) 25 mcg TRANSDERM. Q72H [facility] Last Admin: 04/07/18 13:26 Dose: 25 mcg [facility]) [facility] Last Admin: 04/08/18 07:53 Dose: 300 mg Hydroxyzine Pamoate (Vistaril Pamoate Capsule) 25 mg PO QHS [facility] Last Admin: 04/07/18 21:21 Dose: 25 mg Magnesium Hydroxide (Milk Of Magnesia) 30 ml PO .PRN X 1 PRN PRN Reason: Constipation Multivitamins/Minerals (Multivitamin With Minerals) [facility] Last Admin: 04/08/18 07:53 Dose: 1 tablet Nicotine (Nicoderm Cq (Pbkc)) 21 mg TRANSDERM. DAILY [facility] Last Admin: 04/08/18 07:52 Dose: 21 mg Oxycodone HCl (Oxyir) 10 mg PO Q3H PRN PRN Reason: SEVERE PAIN (6-10/10) Last Admin: 04/08/18 13:29 Dose: 10 mg Senna/Docusate Sodium (Senokot-S, Stefanie-Colace) 2 tablet PO BID [facility] Last Admin: 04/08/18 07:53 Dose: 2 tablet Medical Necessity - Tobacco Use Smoking Status: Current every day smoker Tobacco Use: Cigarettes Assessment/Plan Debility S/P Bilateral total knee replacement. Goal goal of rehab is rastafari of functional independence. Plan: - Physical therapy for gait and balance - Occupational Therapy for ADLs - As needed analgesics - Bowel protocol - DVT prophylaxis: SCDs, Lovenox - B/L TKA Incisions covered with Silverlon dressings, dressings are C/D/I, dressings are to be removed 04/08/18 - Tobacco dependence = nicotine patch for tobacco cravings - Weight bearing status => WBAT, BLE - Fall precaution
[2018-04-08] MEDS: hydrOXYzine PAM 25 MG Capsule PO (20:56)
[2018-04-08 21:00] VITALS: BP 140/95; PULSE 80; RESP 18; TEMP 37; O2SAT 96
[2018-04-09] MEDS: oxyCODONE 5 MG Tablet 10 MG PO ×6 (00:55→20:49)
--- NOTE | 2018-04-09 04:27 | NURSING ---
Reviewed and agree with CHRISTY documentation and FIMs charting
[2018-04-09] MEDS: Acetaminophen 500 MG Tablet 1000 MG PO ×3 (06:15→20:48)
[2018-04-09] MEDS: Senna/Docusate Sodium 1 Tablet 2 TABLET PO (08:50)
[2018-04-09] MEDS: Gabapentin 300 MG Capsule PO ×2 (08:50→16:53)
[2018-04-09] MEDS: Multivitamins,Ther W-Minerals Tablet 1 TABLET PO (08:50)
[2018-04-09] MEDS: Famotidine 20 MG Tablet PO (08:50)
[2018-04-09] MEDS: Ascorbic Acid 500 MG Tablet PO (08:50)
[2018-04-09] MEDS: Calcium Carbonate 500 MG Tablet PO (08:51)
[2018-04-09] MEDS: Celecoxib 100 MG Capsule PO ×2 (09:02→20:48)
[2018-04-09] MEDS: Enoxaparin 40 MG/0.4 ML Syringe SC (09:02)
[2018-04-09 09:13] VITALS: BP 125/76; PULSE 91; RESP 18; TEMP 36.4; O2SAT 97
[2018-04-09] MEDS: hydrOXYzine PAM 25 MG Capsule PO (20:48)
[2018-04-09 20:50] VITALS: BP 155/84; PULSE 95; RESP 16; TEMP 36.7; O2SAT 97
[2018-04-10] MEDS: oxyCODONE 5 MG Tablet 10 MG PO ×7 (02:11→23:56)
--- NOTE | 2018-04-10 03:20 | NURSING ---
Reviewed and agree with SOC ANALYST documentation and FIMs charting
[2018-04-10] MEDS: Acetaminophen 500 MG Tablet 1000 MG PO ×3 (05:20→19:52)
[2018-04-10] MEDS: Calcium Carbonate 500 MG Tablet PO (07:59)
[2018-04-10] MEDS: Famotidine 20 MG Tablet PO (07:59)
[2018-04-10] MEDS: Celecoxib 100 MG Capsule PO ×2 (07:59→19:51)
[2018-04-10] MEDS: Multivitamins,Ther W-Minerals Tablet 1 TABLET PO (07:59)
[2018-04-10] MEDS: Ascorbic Acid 500 MG Tablet PO (07:59)
[2018-04-10] MEDS: Gabapentin 300 MG Capsule PO ×2 (07:59→17:03)
[2018-04-10] MEDS: Enoxaparin 40 MG/0.4 ML Syringe SC (07:59)
[2018-04-10] MEDS: Senna/Docusate Sodium 1 Tablet 2 TABLET PO (08:00)
[2018-04-10 08:10] VITALS: BP 138/82; PULSE 72; RESP 18; TEMP 36.6; O2SAT 97
--- NOTE | 2018-04-10 11:51 | PCM.PN.NEU ---
Subjective: Patient seen, having some pain and some slight swelling in both his thighs ice has been applied and seems to be helping. His pain is still not well controlled, continues to have some issues. He is tolerating therapy and doing well. No issues with GI/. - Physical Exam General: Alert, Oriented x3, Cooperative HEENT: Atraumatic, PERRLA, EOMI, Normocephalic Neck: Supple, No JVD, Negative Carotid Bruits Lungs: Clear to auscultation, Normal air movement Cardiovascular: Regular rate, No murmurs Abdomen: Bowel Sounds Present, Soft, Non Tender Extremities: No edema, Capillary Refill Less than 3 Seconds Skin: No rashes, No breakdown Musculoskeletal: No Tenderness to Palpation of Joints or Extremities Neurological: Cranial nerves II-XII grossly intact Psych/Mental Status: Normal Affect, Appropriate, Alert and oriented to time, place, person, mood and affect Vital Signs Temp Pulse Resp BP Pulse Ox 97.8 F 72 18 138/82 H 97 04/10/18 08:10 04/10/18 08:10 04/10/18 08:10 04/10/18 08:10 04/10/18 08:10 Oxygen Delivery Method Room Air Weight: 118.3 kg Body Mass Index (BMI) 30.9 Intake and Output for Last 24 Hours 04/08/18 04/09/18 04/10/18 23:59 23:59 23:59 Intake Total 440 / 440 Balance 440 / 440 Active Medications Acetaminophen (Tylenol) 1,000 mg PO TID [facility] Last Admin: 04/10/18 05:20 Dose: 1,000 mg Ascorbic Acid (Vitamin C) 500 mg PO DAILY@0800 [facility] Last Admin: 04/10/18 07:59 Dose: 500 mg Bisacodyl (Dulcolax) 10 mg RECTAL .PRN X 1 PRN PRN Reason: Constipation Calcium Carbonate (Tums) 500 mg PO DAILY@0800 [facility] Last Admin: 04/10/18 07:59 Dose: 500 mg Celecoxib (Celebrex) 100 mg PO BID [facility] Last Admin: 04/10/18 07:59 Dose: 100 mg Cholecalciferol (Vitamin D) 1,000 unit PO DAILY [facility] Last Admin: 04/10/18 07:58 Dose: 1,000 unit Enoxaparin Sodium (Lovenox) 40 mg SC DAILY [facility] Last Admin: 04/10/18 07:59 Dose: 40 mg Famotidine (Pepcid) 20 mg PO DAILY [facility] Last Admin: 04/10/18 07:59 Dose: 20 mg Fentanyl (Duragesic Patch) 25 mcg TRANSDERM. Q72H [facility] Last Admin: 04/07/18 13:26 Dose: 25 mcg Gabapentin (Neurontin) 300 mg PO BIDCM [facility] Last Admin: 04/10/18 07:59 Dose: 300 mg Hydroxyzine Pamoate (Vistaril Pamoate Capsule) 25 mg PO QHS [facility] Last Admin: 04/09/18 20:48 Dose: 25 mg Magnesium Hydroxide (Milk Of Magnesia) 30 ml PO .PRN X 1 PRN PRN Reason: Constipation Multivitamins/Minerals ([facility]ivitamin With Minerals) [facility] Last Admin: 04/10/18 07:59 Dose: 1 tablet Nicotine (Nicoderm Cq (Pbkc)) 21 mg TRANSDERM. DAILY [facility] Last Admin: 04/09/18 11:45 Dose: 21 mg Oxycodone HCl (Oxyir) 10 mg PO Q3H PRN PRN Reason: SEVERE PAIN (6-10/10) Last Admin: 04/10/18 08:20 Dose: 10 mg Senna/Docusate Sodium (Senokot-S, Stefanie-Colace) 2 tablet PO BID [facility] Last Admin: 04/10/18 08:00 Dose: 1 tablet Medical Necessity - Tobacco Use Smoking Status: Current every day smoker Tobacco Use: Cigarettes Assessment/Plan Debility S/P Bilateral total knee replacement. Goal goal of rehab is anabaptist of functional independence. Plan: - Physical therapy for gait and balance - Occupational Therapy for ADLs - As needed analgesics - Bowel protocol - DVT prophylaxis: SCDs, Lovenox - B/L TKA Incisions covered with Silverlon dressings, dressings are C/D/I, dressings are to be removed 04/08/18 - Tobacco dependence = nicotine patch for tobacco cravings - Weight bearing status => WBAT, BLE - Fall precaution - B/L thigh discomfort and swlling - Ice packs to both
--- NOTE | 2018-04-10 11:57 | PN.NEURO_ITS ---
Subjective: Patient seen, having some pain and some slight swelling in both his thighs ice has been applied and seems to be helping. His pain is still not well controlled, continues to have some issues. He is tolerating therapy and doing well. No issues with GI/. - Physical Exam General: Alert, Oriented x3, Cooperative HEENT: Atraumatic, PERRLA, EOMI, Normocephalic Neck: Supple, No JVD, Negative Carotid Bruits Lungs: Clear to auscultation, Normal air movement Cardiovascular: Regular rate, No murmurs Abdomen: Bowel Sounds Present, Soft, Non Tender Extremities: No edema, Capillary Refill Less than 3 Seconds Skin: No rashes, No breakdown Musculoskeletal: No Tenderness to Palpation of Joints or Extremities Neurological: Cranial nerves II-XII grossly intact Psych/Mental Status: Normal Affect, Appropriate, Alert and oriented to time, place, person, mood and affect Vital Signs Temp Pulse Resp BP Pulse Ox 97.8 F 72 18 138/82 H 97 04/10/18 08:10 04/10/18 08:10 04/10/18 08:10 04/10/18 08:10 04/10/18 08:10 Oxygen Delivery Method Room Air Weight: 118.3 kg Body Mass Index (BMI) 30.9 Intake and Output for Last 24 Hours 04/08/18 04/09/18 04/10/18 23:59 23:59 23:59 Intake Total 440 / 440 Balance 440 / 440 Active Medications Acetaminophen (Tylenol) 1,000 mg PO TID [facility] Last Admin: 04/10/18 05:20 Dose: 1,000 mg Ascorbic Acid (Vitamin C) 500 mg PO DAILY@0800 [facility] Last Admin: 04/10/18 07:59 Dose: 500 mg Bisacodyl (Dulcolax) 10 mg RECTAL .PRN X 1 PRN PRN Reason: Constipation Calcium Carbonate (Tums) 500 mg PO DAILY@0800 [facility] Last Admin: 04/10/18 07:59 Dose: 500 mg Celecoxib (Celebrex) 100 mg PO BID [facility] Last Admin: 04/10/18 07:59 Dose: 100 mg Cholecalciferol (Vitamin D) 1,000 unit PO DAILY [facility] Last Admin: 04/10/18 07:58 Dose: 1,000 unit Enoxaparin Sodium (Lovenox) 40 mg SC DAILY [facility] Last Admin: 04/10/18 07:59 Dose: 40 mg Famotidine (Pepcid) 20 mg PO DAILY [facility] Last Admin: 04/10/18 07:59 Dose: 20 mg Fentanyl (Duragesic Patch) 25 mcg TRANSDERM. Q72H [facility] Last Admin: 04/07/18 13:26 Dose: 25 mcg Gabapentin (Neurontin) 300 mg PO BIDCM [facility] Last Admin: 04/10/18 07:59 Dose: 300 mg Hydroxyzine Pamoate (Vistaril Pamoate Capsule) 25 mg PO QHS [facility] Last Admin: 04/09/18 20:48 Dose: 25 mg Magnesium Hydroxide (Milk Of Magnesia) 30 ml PO .PRN X 1 PRN PRN Reason: Constipation Multivitamins/Minerals ([facility]) [facility] Last Admin: 04/10/18 07:59 Dose: 1 tablet Nicotine (Nicoderm Cq (Pbkc)) 21 mg TRANSDERM. DAILY [facility] Last Admin: 04/09/18 11:45 Dose: 21 mg Oxycodone HCl (Oxyir) 10 mg PO Q3H PRN PRN Reason: SEVERE PAIN (6-10/10) Last Admin: 04/10/18 08:20 Dose: 10 mg Senna/Docusate Sodium (Senokot-S, Stefanie-Colace) 2 tablet PO BID [facility] Last Admin: 04/10/18 08:00 Dose: 1 tablet Medical Necessity - Tobacco Use Smoking Status: Current every day smoker Tobacco Use: Cigarettes Assessment/Plan Debility S/P Bilateral total knee replacement. Goal goal of rehab is congregation of functional independence. Plan: - Physical therapy for gait and balance - Occupational Therapy for ADLs - As needed analgesics - Bowel protocol - DVT prophylaxis: SCDs, Lovenox - B/L TKA Incisions covered with Silverlon dressings, dressings are C/D/I, dressings are to be removed 04/08/18 - Tobacco dependence = nicotine patch for tobacco cravings - Weight bearing status => WBAT, BLE - Fall precaution - B/L thigh discomfort and swlling - Ice packs to both
[2018-04-10] MEDS: hydrOXYzine PAM 25 MG Capsule PO ×2 (15:24→19:52)
[2018-04-10 19:23] VITALS: BP 159/89; PULSE 89; RESP 18; TEMP 36.4; O2SAT 96
--- NOTE | 2018-04-11 02:05 | NURSING ---
REVIEWED AND AGREE WITH FLEET SERVICE MANAGER'S FIM AND HANDOFF CHARTING.
[2018-04-11] MEDS: oxyCODONE 5 MG Tablet 10 MG PO ×4 (04:19→18:21)
[2018-04-11] MEDS: Acetaminophen 500 MG Tablet 1000 MG PO ×3 (06:51→20:14)
[2018-04-11] MEDS: Gabapentin 300 MG Capsule PO ×2 (08:05→18:18)
[2018-04-11] MEDS: Enoxaparin 40 MG/0.4 ML Syringe SC (08:05)
[2018-04-11] MEDS: hydrOXYzine PAM 25 MG Capsule PO ×2 (08:05→20:14)
[2018-04-11] MEDS: Famotidine 20 MG Tablet PO (08:05)
[2018-04-11] MEDS: Multivitamins,Ther W-Minerals Tablet 1 TABLET PO (08:05)
[2018-04-11] MEDS: Celecoxib 100 MG Capsule PO ×2 (08:06→20:14)
[2018-04-11] MEDS: Calcium Carbonate 500 MG Tablet PO (08:06)
[2018-04-11] MEDS: Ascorbic Acid 500 MG Tablet PO (08:07)
[2018-04-11] MEDS: Senna/Docusate Sodium 1 Tablet 2 TABLET PO (08:08)
[2018-04-11 08:18] VITALS: BP 144/94; PULSE 98; RESP 16; TEMP 36.4; O2SAT 98
--- NOTE | 2018-04-11 10:58 | PN.NEURO_ITS ---
Subjective: Staffed in team meeting. Mother was at bedside, questions where addressed and answered. With Physical therapy, He is stand by assist to get in and out of bed, and coming to a stand from a sitting position. He is able to walk greater than 275 feet using a walker. He has gone up and down 8 steps using 2 hand rails at stand by assist. His TUG score on admission was 33 seconds, his most recent TUG score was 19.8 seconds. With Occupational therapy, he is stand by to supervision for his personal care, he is able to reach his lower body without bending his knees. He is stand by assist for getting in and out of the shower. With Nursing his vital signs have been stable, his pain has been a slight issue increased his Fentanyl patch to 50mcq, and decrease the number of doses he is allowed his Oxy IR. The staff feels he is doing very well and recommend that he be discharged home on 04/13 with outpatient Physical therapy. Will make all his follow up appointments with his surgeon, PCP, and pain management team. - Physical Exam General: Alert, Oriented x3, Cooperative HEENT: Atraumatic, PERRLA, EOMI, Normocephalic Neck: Supple, No JVD, Negative Carotid Bruits Lungs: Clear to auscultation, Normal air movement Cardiovascular: Regular rate, No murmurs Abdomen: Bowel Sounds Present, Soft, Non Tender Extremities: No edema, Capillary Refill Less than 3 Seconds Skin: No rashes, No breakdown Musculoskeletal: No Tenderness to Palpation of Joints or Extremities Neurological: Cranial nerves II-XII grossly intact Psych/Mental Status: Normal Affect, Appropriate, Alert and oriented to time, place, person, mood and affect Vital Signs Temp Pulse Resp BP Pulse Ox 97.6 F L 98 16 144/94 H 98 04/11/18 08:18 04/11/18 08:18 04/11/18 08:18 04/11/18 08:18 04/11/18 08:18 Oxygen Delivery Method Room Air Weight: 118.3 kg Body Mass Index (BMI) 30.9 Intake and Output for Last 24 Hours 04/09/18 04/10/18 04/11/18 23:59 23:59 23:59 Intake Total 880 / 880 Balance 880 / 880 Active Medications Acetaminophen (Tylenol) 1,000 mg PO TID [facility] Last Admin: 04/11/18 06:51 Dose: 1,000 mg Ascorbic Acid (Vitamin C) 500 mg PO DAILY@0800 [facility] Last Admin: 04/11/18 08:07 Dose: 500 mg Bisacodyl (Dulcolax) 10 mg RECTAL .PRN X 1 PRN PRN Reason: Constipation Calcium Carbonate (Tums) 500 mg PO DAILY@0800 [facility] Last Admin: 04/11/18 08:06 Dose: 500 mg Celecoxib (Celebrex) 100 mg PO BID [facility] Last Admin: 04/11/18 08:06 Dose: 100 mg Cholecalciferol (Vitamin D) 1,000 unit PO DAILY [facility] Last Admin: 04/11/18 08:05 Dose: 1,000 unit Enoxaparin Sodium (Lovenox) 40 mg SC DAILY [facility] Last Admin: 04/11/18 08:05 Dose: 40 mg Famotidine (Pepcid) 20 mg PO DAILY [facility] Last Admin: 04/11/18 08:05 Dose: 20 mg Fentanyl (Duragesic Patch) 50 mcg TRANSDERM. Q72H [facility] Last Admin: 04/10/18 13:08 Dose: 50 mcg [facility] Admin: 04/11/18 08:05 Dose: 300 mg Hydroxyzine Pamoate (Vistaril Pamoate Capsule) 25 mg PO BID [facility] Last Admin: 04/11/18 08:05 Dose: 25 mg Magnesium Hydroxide (Milk Of Magnesia) 30 ml PO .PRN X 1 PRN PRN Reason: Constipation Multivitamins/Minerals ([facility]ivitamin With Minerals) [facility] Last Admin: 04/11/18 08:05 Dose: 1 tablet Nicotine (Nicoderm Cq (Pbkc)) 21 mg TRANSDERM. DAILY [facility] Last Admin: 04/11/18 08:05 Dose: 21 mg Oxycodone HCl (Oxyir) 10 mg PO Q3H PRN PRN Reason: SEVERE PAIN (6-10/10) Last Admin: 04/11/18 08:09 Dose: 10 mg Senna/Docusate Sodium (Senokot-S, Stefanie-Colace) 2 tablet PO BID [facility] Last Admin: 04/11/18 08:08 Dose: 1 tablet Medical Necessity - Tobacco Use Smoking Status: Current every day smoker Tobacco Use: Cigarettes Assessment/Plan Debility S/P Bilateral total knee replacement. Goal goal of rehab is scientologist of functional independence. Plan: - Physical therapy for gait and balance - Occupational Therapy for ADLs - As needed analgesics - Bowel protocol - DVT prophylaxis: SCDs, Lovenox - B/L TKA Incisions covered with Silverlon dressings, dressings are C/D/I, dressings are to be removed 04/08/18 - Tobacco dependence = nicotine patch for tobacco cravings - Weight bearing status => WBAT, BLE - Fall precaution - B/L thigh discomfort and swelling - Ice packs to both thighs - Plan is discharge on Sunday, 04/13 with outpatient Physical therapy, and all follow up appointments
--- NOTE | 2018-04-11 12:47 | CASEMGMT ---
Team meeting held. Patient present as well as patient family. Collaborating with patient and team, discharge date set for 04/13/18. Patient plans to discharge to home with mother at time of discharge. Patient reporting a need for a front wheeled walker as well as a shower chair, patient does not have a preference of [employer] to be utilized as [facility] has shower chairs in stock. Physical therapy recommending for patient to continue with services thought outpatient services. Patient is agreeable to recommendation and requesting for outpatient physical therapy to be set up through [facility] outpatient physical therapy. Patient mom to provide transportation home for patient at time of discharge. Support given. Telephone call to [facility], referral made for walker and shower chair. Clinical information faxed. [facility] to deliver equipment to patient room prior to discharge. Order faxed as well. Telephone call to [facility], Voicemail left requesting a return phone call. Proposed discharge date: 04/13/18 PLAN: Discharge to home with mom and outpatient physical therapy. JIGNESH Simmons, [employer] MAINFRAME DEVELOPER
--- NOTE | 2018-04-11 13:27 | CASEMGMT ---
Social Work Telephone call from Honey Danielle. This social work coordinator setting up outpatient physical therapy. Appointment set up for 04/19/18 @ 1:00pm. Order faxed. Spoke with patient in room, patient agreeable to appointment time and date. Appointment reminder provided to patient. Proposed discharge date: 04/13/18 PLAN: Discharge to home with mom. YULY SimmonsW, RESOLUTION ANALYST
--- NOTE | 2018-04-11 18:06 | NURSING ---
Addendum entered by Tiffany Steel 04/11/18 18:06: 1630 Original Note: attempted to call [facility] to make follow appointment and no answer. vic aguirre.
[2018-04-11 18:46] VITALS: BP 142/87; PULSE 105; RESP 18; TEMP 36.8; O2SAT 96
--- NOTE | 2018-04-12 01:06 | NURSING ---
REVIEWED AND AGREE WITH SSN/SSBN ASSISTANT NAVIGATOR'S FIM AND HANDOFF CHARTING.
[2018-04-12] MEDS: oxyCODONE 5 MG Tablet 10 MG PO ×4 (02:12→20:35)
[2018-04-12] MEDS: Acetaminophen 500 MG Tablet 1000 MG PO ×3 (06:57→19:24)
[2018-04-12] MEDS: Famotidine 20 MG Tablet PO (07:26)
[2018-04-12] MEDS: Gabapentin 300 MG Capsule PO ×2 (07:26→18:32)
[2018-04-12] MEDS: Calcium Carbonate 500 MG Tablet PO (07:26)
[2018-04-12] MEDS: Multivitamins,Ther W-Minerals Tablet 1 TABLET PO (07:26)
[2018-04-12] MEDS: Celecoxib 100 MG Capsule PO ×2 (07:26→19:23)
[2018-04-12] MEDS: Enoxaparin 40 MG/0.4 ML Syringe SC (07:27)
[2018-04-12] MEDS: Ascorbic Acid 500 MG Tablet PO (07:28)
[2018-04-12] MEDS: Senna/Docusate Sodium 1 Tablet 2 TABLET PO ×2 (07:28→19:24)
[2018-04-12 07:36] VITALS: BP 127/77; PULSE 82; RESP 18; TEMP 36.6; O2SAT 95
--- NOTE | 2018-04-12 09:33 | VDLE_ITS ---
Reason For Study: LEG SWELLING RIGHT GSV is normal. CFV is compressible, spontaneous, phasic, competent and demonstrates normal augmentation. FV is compressible, spontaneous, phasic, competent and demonstrates normal augmentation. POP V is compressible, spontaneous, phasic, competent and demonstrates normal augmentation. T/P Trunk is compressible. PTV is compressible. RT PerV is compressible. Procedure Exam performed portable in patient room. A preliminary report was called and/or faxed to RU nurse. Interpretation Summary Deep veins of the right lower extremity are patent and compressible segmentally. There is no evidence of right lower extremity deep vein thrombosis. Valvular competence appears intact within the proximal deep venous system on the right . The right greater saphenous vein appears patent and compressible segmentally. Ordering Physician: Marcelina Negrete Referring Physician: Roldan Hayward Performed By: Chiara Durant RVT
[2018-04-12] MEDS: hydrOXYzine PAM 25 MG Capsule PO ×2 (12:22→19:24)
--- NOTE | 2018-04-12 15:17 | PCM.RU.DC ---
Rehab Discharge Summary DATE OF ADMISSION: 04/04/18 DATE OF DISCHARGE: 04/13/18 - Rehab Diagnosis Bilateral Knee Replacements - Physical Exam General: Alert, Oriented x3, Cooperative HEENT: Atraumatic, PERRLA, EOMI, Normocephalic Neck: Supple, No JVD, Negative Carotid Bruits Lungs: Clear to auscultation, Normal air movement Cardiovascular: Regular rate, No murmurs Abdomen: Bowel Sounds Present, Soft, Non Tender Extremities: No edema, Capillary Refill Less than 3 Seconds Skin: No rashes, No breakdown Musculoskeletal: No Tenderness to Palpation of Joints or Extremities Neurological: Cranial nerves II-XII grossly intact Psych/Mental Status: Normal Affect, Appropriate, Alert and oriented to time, place, person, mood and affect Vital Signs Temp Pulse Resp BP Pulse Ox 97.9 F 82 18 127/77 H 95 04/12/18 07:36 04/12/18 07:36 04/12/18 07:36 04/12/18 07:36 04/12/18 07:36 Oxygen Delivery Method Room Air Weight: 118.3 kg Body Mass Index (BMI) 30.9 Intake and Output for Last 24 Hours 04/10/18 04/11/18 04/12/18 23:59 23:59 23:59 Intake Total 880 / 880 240 / 240 720 / 720 Balance 880 / 880 240 / 240 720 / 720 Active Medications Acetaminophen (Tylenol) 1,000 mg PO TID [facility] Last Admin: 04/12/18 14:22 Dose: 1,000 mg Ascorbic Acid (Vitamin C) 500 mg PO DAILY@0800 [facility] Last Admin: 04/12/18 07:28 Dose: 500 mg Bisacodyl (Dulcolax) 10 mg RECTAL .PRN X 1 PRN PRN Reason: Constipation Calcium Carbonate (Tums) 500 mg PO DAILY@0800 [facility] Last Admin: 04/12/18 07:26 Dose: 500 mg Celecoxib (Celebrex) 100 mg PO BID [facility] Last Admin: 04/12/18 07:26 Dose: 100 mg Cholecalciferol (Vitamin D) 1,000 unit PO DAILY [facility] Last Admin: 04/12/18 07:26 Dose: 1,000 unit Enoxaparin Sodium (Lovenox) 40 mg SC DAILY [facility] Last Admin: 04/12/18 07:27 Dose: 40 mg Famotidine (Pepcid) 20 mg PO DAILY [facility] Last Admin: 04/12/18 07:26 Dose: 20 mg Fentanyl (Duragesic Patch) 50 mcg TRANSDERM. Q72H [facility] Last Admin: 04/10/18 13:08 Dose: 50 mcg [facility]) [facility] Last Admin: 04/12/18 07:26 Dose: 300 mg Hydroxyzine Pamoate (Vistaril Pamoate Capsule) 25 mg PO BID [facility] Last Admin: 04/12/18 12:22 Dose: 25 mg Magnesium Hydroxide (Milk Of Magnesia) 30 ml PO .PRN X 1 PRN PRN Reason: Constipation Multivitamins/Minerals (Multivitamin With Minerals) [facility] Last Admin: 04/12/18 07:26 Dose: 1 tablet Nicotine (Nicoderm Cq (Pbkc)) 21 mg TRANSDERM. DAILY [facility] Last Admin: 04/12/18 12:22 Dose: 21 mg Oxycodone HCl (Oxyir) 10 mg PO Q6H PRN PRN PRN Reason: SEVERE PAIN (6-10/10) Last Admin: 04/12/18 14:23 Dose: 10 mg Senna/Docusate Sodium (Senokot-S, Stefanie-Colace) 2 tablet PO BID [facility] Last Admin: 04/12/18 07:28 Dose: 2 tablet Discharge Diet: No Restrictions Discharge Activity: May Not Drive, May not drive while taking narcotic pain medications., May Shower, Use Walker, - - Do not soak in a tub bath until cleared by Surgeon Weight Bearing Status: Weight bearing as tolerated Call your doctor if your incision/area has: Increased Pain/ Swelling, Increased Redness, Foul Smelling Discharge, Swelling at the incision site Call your doctor if you observe: Fever of 101 or Higher, Coldness, Increased Pain, Numbness or Tingling, Change in Color, Inability to urinate, Inability to have a bowel movement, Using more than one pad per hour, Shortness of breath, Dizziness, Fainting spells, Swelling in the ankles, Chest pain, Prolonged hiccoughing, Increased palpitations (irregular heartbeat), Calf discomfort, Uncontrolled pain Home Medications: Medications to take at Discharge Buprenorphine HCl/Naloxone HCl [Suboxone 2 mg-0.5 mg Sl Film] 1 ea SL BID 07/30/14 Acetaminophen [Tylenol] 1,000 mg PO TID 04/04/18 Ascorbic Acid [Vitamin C] 500 mg PO DAILY@0800 04/04/18 Cholecalciferol (VIT D3) [Vitamin D3] 1,000 unit PO DAILY 04/04/18 Gabapentin [Neurontin] 300 mg PO BIDCM 04/04/18 Multivitamins,Ther W-Minerals [Multivitamin With Minerals] 1 tablet PO DAILY 04/04/18 Celecoxib [Celebrex] 100 mg PO BID #60 cap 04/12/18 Nicotine [Nicoderm Cq] 21 mg TRANSDERM. DAILY #7 patch 04/12/18 Oxycodone [Oxyir] 10 mg PO Q6H PRN 7 Days #21 tab 04/12/18 fentaNYL patch [Duragesic patch] 25 mcg TRANSDERM. Q72H 6 Days #2 patch 04/12/18 hydrOXYzine pamoate capsule [Vistaril pamoate capsule] 25 mg PO QHS #60 cap 04/12/18 Following Prescrptions Were Given to Patient: fentaNYL patch [Duragesic patch] 25 mcg TRANSDERM. Q72H 6 Days #2 patch hydrOXYzine pamoate capsule [Vistaril pamoate capsule] 25 mg PO QHS #60 cap Nicotine [Nicoderm Cq] 21 mg TRANSDERM. DAILY #7 patch Celecoxib [Celebrex] 100 mg PO BID #60 cap Oxycodone [Oxyir] 10 mg PO Q6H PRN 7 Days #21 tab PRN Reason: Severe Pain (6-10/10) Primary Care Physician: Peggy Jeffrey, LUCY-C [Primary Care Provider] - Please Follow Up With: Marielos Dunne - Outpatient physical therapy When: Sunday Please Follow Up With: Fransisco Travis Please Follow Up With: Cirilo Amado When: Dr. Urbano Disposition: Home Rehab Course The patient is a 43 year old right handed male, who is admitted to the rehab unit for rehabilitation, s/p bilateral total knee replacement at the [facility] by Dr. Rashel Travis. Post Op recovery was uneventful. He has a PMH of Osteoarthritis, and Opioid abuse, which he is on Suboxone for. He is WBAT, he has Silverlon dressing to bilateral knees, dressings are C/D/I, dressings are to be removed 04/08/18. He lives with his brother in a single story home with 3 steps to get into the house. The plan is to return home to his mother house which is also a single story dwelling with 3 steps to get into the home. He was previously completely functionally independent and is admitted to the rehab unit in order to restore his previous level of functional independence. While in the Rehab unit (RU) his other medical conditions were monitored. While in the RU he improved with therapy and gained strength. His stay during that time was uncomplicated and he was able to be discharged home on 04/13/18 to complete the remainder of his care as an outpatient. Summary of Care: - Physical therapy for gait and balance - Occupational Therapy for ADLs - As needed analgesics - Bowel protocol - DVT prophylaxis: SCDs, Lovenox - B/L TKA Incisions covered with Silverlon dressings, dressings are C/D/I, dressings are to be removed 04/08/18 - Tobacco dependence = nicotine patch for tobacco cravings - Weight bearing status => WBAT, BLE - Fall precaution - B/L thigh discomfort and swelling - Ice packs to both thighs - Ultra sound of thigh, DVT - dopplar was negative for DVTs - Plan is discharge on Sunday, 04/13 with outpatient Physical therapy, and all follow up appointments Summery of Therapy sessions: With Physical therapy, He is stand by assist to get in and out of bed, and coming to a stand from a sitting position. He is able to walk greater than 275 feet using a walker. He has gone up and down 8 steps using 2 hand rails at stand by assist. His TUG score on admission was 33 seconds, his most recent TUG score was 19.8 seconds. With Occupational therapy, he is stand by to supervision for his personal care, he is able to reach his lower body without bending his knees. He is stand by assist for getting in and out of the shower. With Nursing his vital signs have been stable, his pain has been a slight issue increased his Fentanyl patch to 50mcq, and decrease the number of doses he is allowed his Oxy IR. The staff feels he is doing very well and recommend that he be discharged home on 04/13 with outpatient Physical therapy. Will make all his follow up appointments with his surgeon, PCP, and pain management team. Meaningful Use Info Meaningful Use Diagnoses (Choose all that apply): None applicable
--- NOTE | 2018-04-12 15:22 | DS.PCM_ITS ---
Rehab Discharge Summary DATE OF ADMISSION: 04/04/18 DATE OF DISCHARGE: 04/13/18 - Rehab Diagnosis Bilateral Knee Replacements - Physical Exam General: Alert, Oriented x3, Cooperative HEENT: Atraumatic, PERRLA, EOMI, Normocephalic Neck: Supple, No JVD, Negative Carotid Bruits Lungs: Clear to auscultation, Normal air movement Cardiovascular: Regular rate, No murmurs Abdomen: Bowel Sounds Present, Soft, Non Tender Extremities: No edema, Capillary Refill Less than 3 Seconds Skin: No rashes, No breakdown Musculoskeletal: No Tenderness to Palpation of Joints or Extremities Neurological: Cranial nerves II-XII grossly intact Psych/Mental Status: Normal Affect, Appropriate, Alert and oriented to time, place, person, mood and affect Vital Signs Temp Pulse Resp BP Pulse Ox 97.9 F 82 18 127/77 H 95 04/12/18 07:36 04/12/18 07:36 04/12/18 07:36 04/12/18 07:36 04/12/18 07:36 Oxygen Delivery Method Room Air Weight: 118.3 kg Body Mass Index (BMI) 30.9 Intake and Output for Last 24 Hours 04/10/18 04/11/18 04/12/18 23:59 23:59 23:59 Intake Total 880 / 880 240 / 240 720 / 720 Balance 880 / 880 240 / 240 720 / 720 Active Medications Acetaminophen (Tylenol) 1,000 mg PO TID [facility] Last Admin: 04/12/18 14:22 Dose: 1,000 mg Ascorbic Acid (Vitamin C) 500 mg PO DAILY@0800 [facility] Last Admin: 04/12/18 07:28 Dose: 500 mg Bisacodyl (Dulcolax) 10 mg RECTAL .PRN X 1 PRN PRN Reason: Constipation Calcium Carbonate (Tums) 500 mg PO DAILY@0800 [facility] Last Admin: 04/12/18 07:26 Dose: 500 mg Celecoxib (Celebrex) 100 mg PO BID [facility] Last Admin: 04/12/18 07:26 Dose: 100 mg Cholecalciferol (Vitamin D) 1,000 unit PO DAILY [facility] Last Admin: 04/12/18 07:26 Dose: 1,000 unit Enoxaparin Sodium (Lovenox) 40 mg SC DAILY [facility] Last Admin: 04/12/18 07:27 Dose: 40 mg Famotidine (Pepcid) 20 mg PO DAILY [facility] Last Admin: 04/12/18 07:26 Dose: 20 mg Fentanyl (Duragesic Patch) 50 mcg TRANSDERM. Q72H [facility] Last Admin: 04/10/18 13:08 Dose: 50 mcg [facility]: 04/12/18 07:26 Dose: 300 mg Hydroxyzine Pamoate (Vistaril Pamoate Capsule) 25 mg PO BID [facility] Last Admin: 04/12/18 12:22 Dose: 25 mg Magnesium Hydroxide (Milk Of Magnesia) 30 ml PO .PRN X 1 PRN PRN Reason: Constipation Multivitamins/Minerals ([facility]ivitamin With Minerals) [facility] Admin: 04/12/18 07:26 Dose: 1 tablet Nicotine (Nicoderm Cq (Pbkc)) 21 mg TRANSDERM. DAILY [facility] Last Admin: 04/12/18 12:22 Dose: 21 mg Oxycodone HCl (Oxyir) 10 mg PO Q6H PRN PRN PRN Reason: SEVERE PAIN (6-10/10) Last Admin: 04/12/18 14:23 Dose: 10 mg Senna/Docusate Sodium (Senokot-S, Stefanie-Colace) 2 tablet PO BID [facility] Last Admin: 04/12/18 07:28 Dose: 2 tablet Discharge Diet: No Restrictions Discharge Activity: May Not Drive, May not drive while taking narcotic pain medications., May Shower, Use Walker, - - Do not soak in a tub bath until cleared by Surgeon Weight Bearing Status: Weight bearing as tolerated Call your doctor if your incision/area has: Increased Pain/ Swelling, Increased Redness, Foul Smelling Discharge, Swelling at the incision site Call your doctor if you observe: Fever of 101 or Higher, Coldness, Increased Pain, Numbness or Tingling, Change in Color, Inability to urinate, Inability to have a bowel movement, Using more than one pad per hour, Shortness of breath, Dizziness, Fainting spells, Swelling in the ankles, Chest pain, Prolonged hiccoughing, Increased palpitations (irregular heartbeat), Calf discomfort, Uncontrolled pain Home Medications: Medications to take at Discharge Buprenorphine HCl/Naloxone HCl [Suboxone 2 mg-0.5 mg Sl Film] 1 ea SL BID 07/30/14 Acetaminophen [Tylenol] 1,000 mg PO TID 04/04/18 Ascorbic Acid [Vitamin C] 500 mg PO DAILY@0800 04/04/18 Cholecalciferol (VIT D3) [Vitamin D3] 1,000 unit PO DAILY 04/04/18 Gabapentin [Neurontin] 300 mg PO BIDCM 04/04/18 Multivitamins,Ther W-Minerals [Multivitamin With Minerals] 1 tablet PO DAILY 04/04/18 Celecoxib [Celebrex] 100 mg PO BID #60 cap 04/12/18 Nicotine [Nicoderm Cq] 21 mg TRANSDERM. DAILY #7 patch 04/12/18 Oxycodone [Oxyir] 10 mg PO Q6H PRN 7 Days #21 tab 04/12/18 fentaNYL patch [Duragesic patch] 25 mcg TRANSDERM. Q72H 6 Days #2 patch 04/12/18 hydrOXYzine pamoate capsule [Vistaril pamoate capsule] 25 mg PO QHS #60 cap 04/12/18 Following Prescrptions Were Given to Patient: fentaNYL patch [Duragesic patch] 25 mcg TRANSDERM. Q72H 6 Days #2 patch hydrOXYzine pamoate capsule [Vistaril pamoate capsule] 25 mg PO QHS #60 cap Nicotine [Nicoderm Cq] 21 mg TRANSDERM. DAILY #7 patch Celecoxib [Celebrex] 100 mg PO BID #60 cap Oxycodone [Oxyir] 10 mg PO Q6H PRN 7 Days #21 tab PRN Reason: Severe Pain (6-10/10) Primary Care Physician: Peggy Jeffrey, LUCY-C [Primary Care Provider] - Please Follow Up With: Marielos Dunne - Outpatient physical therapy When: Sunday Please Follow Up With: Fransisco Travis Please Follow Up With: Cirilo Amado When: Dr. Urbano Disposition: Home Rehab Course The patient is a 43 year old right handed male, who is admitted to the rehab unit for rehabilitation, s/p bilateral total knee replacement at the [facility] by Dr. Rashel Travis. Post Op recovery was uneventful. He has a PMH of Osteoarthritis, and Opioid abuse, which he is on Suboxone for. He is WBAT, he has Silverlon dressing to bilateral knees, dressings are C/D/I, dressings are to be removed 04/08/18. He lives with his brother in a single story home with 3 steps to get into the house. The plan is to return home to his mother house which is also a single story dwelling with 3 steps to get into the home. He was previously completely functionally independent and is admitted to the rehab unit in order to restore his previous level of functional independence. While in the Rehab unit (RU) his other medical conditions were monitored. While in the RU he improved with therapy and gained strength. His stay during that time was uncomplicated and he was able to be discharged home on 04/13/18 to complete the remainder of his care as an outpatient. Summary of Care: - Physical therapy for gait and balance - Occupational Therapy for ADLs - As needed analgesics - Bowel protocol - DVT prophylaxis: SCDs, Lovenox - B/L TKA Incisions covered with Silverlon dressings, dressings are C/D/I, dressings are to be removed 04/08/18 - Tobacco dependence = nicotine patch for tobacco cravings - Weight bearing status => WBAT, BLE - Fall precaution - B/L thigh discomfort and swelling - Ice packs to both thighs - Ultra sound of thigh, DVT - dopplar was negative for DVTs - Plan is discharge on Sunday, 04/13 with outpatient Physical therapy, and all follow up appointments Summery of Therapy sessions: With Physical therapy, He is stand by assist to get in and out of bed, and coming to a stand from a sitting position. He is able to walk greater than 275 feet using a walker. He has gone up and down 8 steps using 2 hand rails at stand by assist. His TUG score on admission was 33 seconds, his most recent TUG score was 19.8 seconds. With Occupational therapy, he is stand by to supervision for his personal care, he is able to reach his lower body without bending his knees. He is stand by assist for getting in and out of the shower. With Nursing his vital signs have been stable, his pain has been a slight issue increased his Fentanyl patch to 50mcq, and decrease the number of doses he is allowed his Oxy IR. The staff feels he is doing very well and recommend that he be discharged home on 04/13 with outpatient Physical therapy. Will make all his follow up appointments with his surgeon, PCP, and pain management team. Meaningful Use Info Meaningful Use Diagnoses (Choose all that apply): None applicable
--- NOTE | 2018-04-12 15:25 | DCINST_ITS ---
- Discharge Diagnoses Reason(s) for Visit for Discharge Instructions: Bilateral Knee Replacement You will use the following diet at home:: Regular Your food should be the consistency of: Regular Your liquids should be the consistency of: Regular/Thin Discharge Activity: May Not Drive, May not drive while taking narcotic pain medications., May Shower, Use Walker, - - Do not soak in a tub bath until cleared by Surgeon Weight Bearing Status: Weight bearing as tolerated Call your doctor if your incision/area has: Increased Pain/ Swelling, Increased Redness, Foul Smelling Discharge, Swelling at the incision site Call your doctor if you observe: Fever of 101 or Higher, Coldness, Increased Pain, Numbness or Tingling, Change in Color, Inability to urinate, Inability to have a bowel movement, Using more than one pad per hour, Shortness of breath, Dizziness, Fainting spells, Swelling in the ankles, Chest pain, Prolonged hiccoughing, Increased palpitations (irregular heartbeat), Calf discomfort, Uncontrolled pain Allergies/Adverse Reactions: Allergies No Known Allergies Allergy (Verified 07/04/17 09:39) Medications to take at Discharge Buprenorphine HCl/Naloxone HCl [Suboxone 2 mg-0.5 mg Sl Film] 1 ea SL BID 07/30/14 Acetaminophen [Tylenol] 1,000 mg PO TID 04/04/18 Ascorbic Acid [Vitamin C] 500 mg PO DAILY@0800 04/04/18 Cholecalciferol (VIT D3) [Vitamin D3] 1,000 unit PO DAILY 04/04/18 Gabapentin [Neurontin] 300 mg PO BIDCM 04/04/18 Multivitamins,Ther W-Minerals [Multivitamin With Minerals] 1 tablet PO DAILY 04/04/18 Celecoxib [Celebrex] 100 mg PO BID #60 cap 04/12/18 Nicotine [Nicoderm Cq] 21 mg TRANSDERM. DAILY #7 patch 04/12/18 Oxycodone [Oxyir] 10 mg PO Q6H PRN 7 Days #21 tab 04/12/18 fentaNYL patch [Duragesic patch] 25 mcg TRANSDERM. Q72H 6 Days #2 patch 04/12/18 hydrOXYzine pamoate capsule [Vistaril pamoate capsule] 25 mg PO QHS #60 cap 04/12/18 The following prescriptions were given: fentaNYL patch [Duragesic patch] 25 mcg TRANSDERM. Q72H 6 Days #2 patch hydrOXYzine pamoate capsule [Vistaril pamoate capsule] 25 mg PO QHS #60 cap Nicotine [Nicoderm Cq] 21 mg TRANSDERM. DAILY #7 patch Celecoxib [Celebrex] 100 mg PO BID #60 cap Oxycodone [Oxyir] 10 mg PO Q6H PRN 7 Days #21 tab PRN Reason: Severe Pain (6-01/30) Primary Care Physician: Peggy Jeffrey NP-C [Primary Care Provider] - Test Results: Test results from this visit will be discussed in further detail at your follow- up appointment, if applicable. Please Follow Up With: Marielos Dunne - Outpatient physical therapy When: Sunday Please Follow Up With: Fransisco Travis Please Follow Up With: Cirilo Amado When: Dr. Urbano Please Follow Up With: primary care doctor Proposed Discharge Date: 04/13/18
[2018-04-12 19:28] VITALS: BP 139/93; PULSE 99; RESP 16; TEMP 36.8; O2SAT 95
[2018-04-13] MEDS: oxyCODONE 5 MG Tablet 10 MG PO ×2 (03:51→10:25)
[2018-04-13] MEDS: Acetaminophen 500 MG Tablet 1000 MG PO (05:57)
[2018-04-13 07:00] VITALS: BP 148/83; PULSE 98; RESP 16; TEMP 36.8; O2SAT 97
[2018-04-13] MEDS: Famotidine 20 MG Tablet PO (08:08)
[2018-04-13] MEDS: Calcium Carbonate 500 MG Tablet PO (08:09)
[2018-04-13] MEDS: Ascorbic Acid 500 MG Tablet PO (08:09)
[2018-04-13] MEDS: Multivitamins,Ther W-Minerals Tablet 1 TABLET PO (08:09)
[2018-04-13] MEDS: Gabapentin 300 MG Capsule PO (08:09)
[2018-04-13] MEDS: Enoxaparin 40 MG/0.4 ML Syringe SC (08:09)
[2018-04-13] MEDS: Celecoxib 100 MG Capsule PO (08:09)
[2018-04-13] MEDS: hydrOXYzine PAM 25 MG Capsule PO (08:09)
[2018-04-13 12:16] VITALS: BP 123/81; PULSE 106; RESP 16; TEMP 36.5; O2SAT 92
--- NOTE | 2018-04-15 16:45 | CASEMGMT ---
Insurance Notified insurance of patient discharge on 04/13/18 to home with mom and outpatient physical therapy. Auth#[id number] JIGNESH Simmons, GLASSIE
--- OUTSIDE RECORDS SUMMARY | 2018-05-21 07:32 | XMS RPT_ITS ---
:1975 Author Organization [employer] Address [address] [place] [address] Phone Care Team Providers Name Role Phone Rashel Travis MD Unavailable Reason for Visit Reason For Visit Description Start Date New/Est - 1st visit with physician Preliminary reason for visit data, not yet signed by the author as of bilateral knee pain Preliminary reason for visit data, not yet signed by the author as of Chief Complaint Chief Complaint Description Start Date bilateral knee pain Preliminary chief complaint data, not yet signed by the author as of Instructions Instruction Description Start Date CompletedPatient advised to follow-up with Primary Care Physician for BMI management. Plan of Care Type Date Detail Appointment 09:30 AM Rashel Travis MD, [address] [place], [address], Appointment 01:00 PM Rashel Travis MD, [address] [place], [address], Appointment 09:00 AM Rashel Travis MD, [address] [place], [address], Pending order XR [id number] [id number] Pending order XR KNEE [id number] Patient education \[id number] Medications Medication Instructions Start Stop Generic Name NDC Provider Date Date NEURONTIN 300 1 cap twice a GABAPENTIN [id number] Rashel N MG CAPS day 19 Angy [place]ARIL 25 MG 1 capsule as / HYDROXYZINE [id number] Terena Presley CAPS needed up to 3 22 PAMOATE RN times daily as directed SUBOXONE 8-2 1 film twice / BUPRENORPHINE [id number] Terena Presley MG FILM daily as 22 HCL-NALOXONE HCL RN directed CELEBREX 100 1 capsule twice / CELECOXIB [id number] Terena Presley MG CAPS daily as 22 RN directed Conditions or Problems Problem Name Problem Onset Status Entry Provider Comment Standard Annotate Code Date Date Description 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 Rashel Sharmila 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 Allergies, Adverse Reactions, Alerts Observed no known allergies at Social History Concept Description Observation Name Observation Value Units Start Date Employment 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 Preliminary social history data, not yet signed by the author as of Tobacco use and SMOK ADVICE Yes exposure Preliminary social history data, not yet signed by the author as of Vital Signs Date Name Value Unit Description BMI (Body Mass 31.54 kg/m2 Body Mass Index Index) [Ratio] Preliminary vital sign data, not yet signed by the author as of BP Diastolic 87 mm[Hg] blood pressure, diastolic Preliminary vital sign data, not yet signed by the author as of BP Systolic 133 mm[Hg] blood pressure, systolic Preliminary vital sign data, not yet signed by the author as of Heart Rate 76 /min pulse rate E&M Preliminary vital sign data, not yet signed by the author as of Height 77 [in_us] height E&M Preliminary vital sign data, not yet signed by the author as of Height 196 cm height in centimeters E&M Preliminary vital sign data, not yet signed by the author as of Weight Measured 265 [lb_av] weight E&M Preliminary vital sign data, not yet signed by the author as of Weight Measured 120 kg weight in kilograms E&M Preliminary vital sign data, not yet signed by the author as of Results Date Name Value Unit Range Flag Description Office Visit: New/Est - 1st visit with physician, Rm: 3 MEDS REVIEW Done Documentation of current medications (procedure) Preliminary observation data, not yet signed by the author as of Preliminary observation data, not yet signed by the author as of SMOK ADVICE Yes Smoking cessation education (procedure) Preliminary observation data, not yet signed by the author as of XRAY HX of the bilateral xray history knee on 02/11/2018 at [facility] Preliminary observation data, not yet signed by the author as of Clinical Summary: HMSPatientID BOP account number Procedures Code Procedure Name Date Entry Date G8730 Pain assessment documented as positive - follow-up documented G8427 Current medications documented 4004F Tobacco screening was positive - cessation counseling received G8417 BMI documented as above normal parameters - follow-up documented G8783 Blood pressure within normal parameters - no follow-up required 1006F Osteoarthritis symptoms and functional status assessed [facility]-[id number] Patient Encounter Medications Administered No information available. Immunizations No information available. Advance Directives There may be information available, but it has not been provided by the sender. Assessments There may be information available, but it has not been provided by the sender. Review of Systems There may be information available, but it has not been provided by the sender. Family History There may be information available, but it has not been provided by the sender. History of Past Illness There may be information available, but it has not been provided by the sender. History of Present Illness There may be information available, but it has not been provided by the sender.
--- OUTSIDE RECORDS SUMMARY | 2018-05-21 07:32 | XMS RPT_ITS ---
:1975 Author Organization [place] Support Name Relationship Address Phone MANUFACTURING ANALYST, BJ Unavailable [address] + [place] [id number] MANUFACTURING ANALYST, KERMIT Unavailable [address] + [place] [address] UE Unavailable Unavailable Unavailable MANUFACTURING ANALYST, BJ Unavailable [address] + [place] [address] MANUFACTURING ANALYST, KERMIT Unavailable [address] + [facility] [place] [address] UE Unavailable Unavailable Unavailable MANUFACTURING ANALYST, BJ Unavailable [address] + [place] [address] MANUFACTURING ANALYST, KERMIT Unavailable [address] + [facility] [place] [address] UE Unavailable Unavailable Unavailable Research And Development Specialist, Geneva Dillard Unavailable Unavailable + Research And Development Specialist, Geneva Dillard Unavailable Unavailable + MANUFACTURING ANALYST, BJ Unavailable [address] + [place] [address] MANUFACTURING ANALYST, KERMIT Unavailable [address] + [place] [address] UE Unavailable Unavailable Unavailable MANUFACTURING ANALYST, BJ Unavailable [address] + [place] [address] MANUFACTURING ANALYST, KERMIT Unavailable [address] + [place] [address] UE Unavailable Unavailable Unavailable MANUFACTURING ANALYST, BJ Unavailable [address] + [place] [address] MANUFACTURING ANALYST, KERMIT Unavailable [address] + [place] [address] UE Unavailable Unavailable Unavailable MANUFACTURING ANALYST, BJ Unavailable [address] + [place] [id number] MANUFACTURING ANALYST, KERMIT Unavailable Unavailable + UE Unavailable Unavailable Unavailable MANUFACTURING ANALYST, B Unavailable [address] + [place] [address] UE Unavailable Unavailable Unavailable MANUFACTURING ANALYST, B Unavailable [address] + [place] [address] UE Unavailable Unavailable Unavailable Care Team Providers Name Role Phone SHALINI ANDERSON (DOMINGUEZ) Referring Unavailable SHALINI ANDERSON (DOMINGUEZ) Attending Unavailable SHALINI ANDERSON (DOMINGUEZ) Attending Unavailable SHALINI ANDERSON (DOMINGUEZ) Referring Unavailable ADAM JONES Attending Unavailable Rashel Jarvis Attending Unavailable StemRashel menjivar Referring Unavailable StemRashel menjivar Attending Unavailable StemRashel menjivar Referring Unavailable StemRashel menjivar Attending Unavailable PROVIDER, UNKNOWN Referring Unavailable Swihart, Peggy Primary Care Unavailable StemRashel menjivar Attending Unavailable PROVIDER, UNKNOWN Referring Unavailable Swihart, Peggy Primary Care Unavailable RASHEL JARVIS MD. Attending Unavailable PHYSICIAN, NONE Primary Care Unavailable Roldan Hayward Admitting Unavailable Roldan Hayward Referring Unavailable Swihart RETAIL MAINTENANCE TECHNICIAN, Peggy Primary Care Unavailable Chava Wilkinson Consulting Unavailable Grady Meng Attending Unavailable Roldan Hayward Admitting Unavailable Chava Wilkinson Attending Unavailable Roldan Hayward Referring Unavailable Swihart RETAIL MAINTENANCE TECHNICIAN, Peggy Primary Care Unavailable Josephine Wilkinsons Brit Consulting Unavailable Yesy Roldan Consulting Unavailable Steve Hebert Attending Unavailable Primay Care Physicia, No Primary Care Unavailable Keegan Brown Attending Unavailable Primay Care Physicia, No Referring Unavailable Primay Care Physicia, No Primary Care Unavailable Primay Care Physicia, No Primary Care Unavailable Duldey Sorto Attending Unavailable Roldan Hayward Admitting Unavailable Marcelina Negrete Attending Unavailable Yesy, Roldan Referring Unavailable Swihart BOWEN, Peggy Primary Care Unavailable Chava Wilkinson Consulting Unavailable Marcelina Negrete Consulting Unavailable Keegan Brown Admitting Unavailable Keegan Brown Attending Unavailable Primay Care Physicia, No Primary Care Unavailable Keegan Brown Attending Unavailable Primay Care Physicia, No Referring Unavailable Primay Care Physicia, No Primary Care Unavailable Joe Santo Attending Unavailable Peggy Bell Primary Care Unavailable PROBLEMS PROBLEMS DATE TYPE CONDITION / CODE ATTENDING STATUS SOURCE 04/13/2018 Unknown M17.10 - Unilateral Grady Meng Active [place] [facility] osteoarthritis, Hospital unspecified knee / Repository M17.10(ICD-10) 04/13/2018 Unknown Z96.653 - Presence Jopperi, Grady Active [facility] of artificial knee Community joint, bilateral / Hospital Z96.653(ICD-10) Repository 04/01/2018 Admitting Bilateral primary [place], Active [facility] Diagnosis osteoarthritis of [facility] knee / M17.0(ICD-10) Repository 04/01/2018 Admitting Other obesity / [place], Active [facility] Diagnosis E66.8(ICD-10) [facility] Repository 04/01/2018 Admitting Nicotine dependence, [place], Active [facility] Diagnosis cigarettes, [facility] uncomplicated / Repository F17.210(ICD-10) 04/01/2018 Admitting Body mass index [place], Active [facility] (BMI) 30.0-30.9, [facility] adult / Repository Z68.30(ICD-10) 04/01/2018 [facility] use of opiate [facility] analgesic / Repository Z79.891(ICD-10) 03/28/2018 Admitting [facility] preprocedural [facility] examination / Repository Z01.818(ICD-10) 03/28/2018 Admitting Anxiety disorder, [place], Active [facility] Diagnosis unspecified / [facility] F41.9(ICD-10) Repository 03/28/2018 Admitting [facility]ioid abuse[facility] remission / [facility] F11.11(ICD-10) Repository 03/08/2018 Active Unknown / ADAM JONES Active [place] [facility](Unknown) [facility] [employer] Repository 12/12/2017 Active Pain, unspecified / NA Active [place] R52(ICD-10) [facility] [employer] Repository PROCEDURES PROCEDURES No Procedure Records FoundRESULTS RESULTS OBSOLETE Observed: 05/13/2018 Status: COMPLETED Source: [place] 12:00 AM [facility] REPOSITORY Refill (PNMDNA) MANUFACTURING ANALYSTFRANSISCO ([id number]) 1975 M Date Time Provider Department 05/13/18 ADAM JONES PNMDNA During your visit today, we recorded the following information about you: Rosy Vaca MA 05/13/2018 12:12 PM Signed Patient has been identified by name and date of : Yes RX INSTRUCTIONS: Patient aware RX will be sent to pharmacy. No need to notify patient. Patient phones requesting refills as follows: Please verify quantity and correct dosage instructions before approval. Pending Prescriptions Disp Refills GABAPENTIN 300 MG CAPSULE 60 capsule Sig: TAKE 1 CAPSULE BY MOUTH TWICE A DAY CRISTINA: Yes Please review and advise. JEANETTE Carbajal, TRANSFORMER SHOP SUPERVISOR.BUS AND RAIL OPERATOR 05/13/2018 12:37 PM Signed Medication e scripted Allergies As of Date: 05/13/2018 (No Known Allergies) Date Reviewed: 03/08/2018 Reviewed by: Rosy Vaca MA - Fully Assessed Reason for Visit: Refill Request [94] Order(s):gabapentin (NEURONTIN) 300 mg capsuleTAKE 1 CAPSULE BY MOUTH TWICE A DAYDisp: 60 capsuleRfl: 1 Prescriptions as of 05/13/2018 Sig: GABAPENTIN 300 MG CAPSULE TAKE 1 CAPSULE BY MOUTH TWICE* HYDROXYZINE PAMOATE 25 MG CAP* Take 25 mg by mouth three travis* CELECOXIB 100 MG CAPSULE Take 100 mg by mouth twice da* BUPRENORPHINE 8 MG-NALOXONE 2* Dissolve 1 Film under the ton* CELECOXIB 200 MG CAPSULE Take 1 capsule by mouth once * Patient not taking: Reported on 12/12/2017 METHYLPREDNISOLONE 4 MG TABLE* TAKE 1 PACK DIRECTED Problem List As Of Date 05/13/2018 Noted Resolved Post-traumatic osteoarthritis of both knees [M1*INVALID FOR* Chronic pain of both knees [M25.561, M25.562, G*INVALID FOR* Neuropathic pain of both legs [G57.91, G57.92] INVALID FOR* Prescriptions ordered this encounter Disp Refills Start End GABAPENTIN 300 MG CAPSULE 60 c* 1 05/13/2018 06/12/2018 Cmt: Maximum Refills Reached Sig: TAKE 1 CAPSULE BY MOUTH TWICE A DAY Medications Discontinued During This Encounter gabapentin (NEURONTIN) 300 mg capsule 60 c* 1 03/08/2018 05/13/2018 Route: ORAL Sig: Take 1 capsule by mouth twice daily for 30 days. Disc: Reason for discontinue is not on file. Encounter Status:Closed by L[place] on 05/13/18 VENOUS DUPLEX LOWER Observed: 04/12/2018 Status: F Source: [place] EXTREMITY 6:35 PM [facility] RE[facility]IT[facility] Cardiovascular Services [address] [place] [address] Venous Duplex US, Unilateral 04/12/18 1038 MR#: [id number] Acct: [id number] Name: MANUFACTURING ANALYST,FRANSISCO Peterson Rep #: [id number] : 1975 43 From: Kiko Rao MD Attending Dr: Marcelina Negrete Status: ADM IN Ordering Dr: Alissa Negrete. DO Date: 04/12/18 Location: Sex: M C Admitted: 04/04/18 Reason For Study: LEG SWELLING RIGHT GSV is normal. CFV is compressible, spontaneous, phasic, competent and demonstrates normal augmentation. FV is compressible, spontaneous, phasic, competent and demonstrates normal augmentation. POP V is compressible, spontaneous, phasic, competent and demonstrates normal augmentation. T/P Trunk is compressible. PTV is compressible. RT PerV is compressible. Procedure Exam performed portable in patient room. A preliminary report was called and/or faxed to nurse. Interpretation Summary Deep veins of the right lower extremity are patent and compressible segmentally. There is no evidence of right lower extremity deep vein thrombosis. Valvular competence appears intact within the proximal deep venous system on the right . The right greater saphenous vein appears patent and compressible segmentally. Ordering Physician: Marcelina Negrete Referring Physician: Roldan Hayward Performed By: Chiara Durant RVT 04/12/181834 Date Kiko Rao MD CC: Marcelina Negrete; Peggy WISEMAN; Roldan Hayward MD Date Dictated: 04/12/18 1038 Date Transcribed: 04/12/181834 Dragline Oiler: Signed DISCHARGE SUMMARY Observed: 04/12/2018 Status: C Source: [place] 4:21 PM [facility] Medical Records Department [address] [facility] [place] [address] Discharge Summary 04/12/18 1517 MR#: [id number] Acct: [id number] Name: MANUFACTURING ANALYSTFRANSISCO Rep #: [id number] : 1975 43 From: Kathy LOYA PCP: Peggy Bell Status: ADM IN Location: [place] [address] ADDENDUM by Kris Stringer MD on 04/12/18 at 1621 Please see LUCY Melara's discharge note as below for further complete details. I have discussed the management plan for the patient in detail with LUCY Melara and please see the plan as noted below. Had uncomplicated rehab course. Tolerated therapies well. Fall precautions. Further medical management per hospitalist recommendations. Discharge Sunday04/13/18. Follow up with Pain management, PCP and orthopedic surgery as outpatient. 04/12/18 1621 <Electronically signed by Eugenio Stringer MD> Date Eugenio Stringer MD cc: LUCY Melara; Kris Stringer MD; Peggy WISEMAN * Addendum Rehab Discharge Summary DATE OF ADMISSION: 04/04/18 DATE OF DISCHARGE: 04/13/18 - Rehab Diagnosis Bilateral Knee Replacements - Physical Exam General: Alert, Oriented x3, Cooperative HEENT: Atraumatic, PERRLA, EOMI, Normocephalic Neck: Supple, No JVD, Negative Carotid Bruits Lungs: Clear to auscultation, Normal air movement Cardiovascular: Regular rate, No murmurs Abdomen: Bowel Sounds Present, Soft, Non Tender Extremities: No edema, Capillary Refill Less than 3 Seconds Skin: No rashes, No breakdown Musculoskeletal: No Tenderness to Palpation of Joints or Extremities Neurological: Cranial nerves II-XII grossly intact Psych/Mental Status: Normal Affect, Appropriate, Alert and oriented to time, place, person, mood and affect Vital Signs Temp Pulse Resp BP Pulse Ox 97.9 F 82 18 127/77 H 95 04/12/18 07:36 04/12/18 07:36 04/12/18 07:36 04/12/18 07:36 04/12/18 07:36 Oxygen Delivery Method Room Air Weight: 118.3 kg Body Mass Index (BMI) 30.9 Intake and Output for Last 24 Hours Intake Total 880 / 880 240 / 240 720 / 720 Balance 880 / 880 240 / 240 720 / 720 Active Medications Acetaminophen (Tylenol) 1,000 mg PO TID [facility] Last Admin: 04/12/18 14:22 Dose: 1,000 mg Ascorbic Acid (Vitamin C) 500 mg PO DAILY@0800 [facility] Last Admin: 04/12/18 07:28 Dose: 500 mg Bisacodyl (Dulcolax) 10 mg RECTAL .PRN X 1 PRN PRN Reason: Constipation Calcium Carbonate (Tums) 500 mg PO DAILY@0800 [facility] Last Admin: 04/12/18 07:26 Dose: 500 mg Celecoxib (Celebrex) 100 mg PO BID [facility] Last Admin: 04/12/18 07:26 Dose: 100 mg Cholecalciferol (Vitamin D) 1,000 unit PO DAILY [facility] Last Admin: 04/12/18 07:26 Dose: 1,000 unit Enoxaparin Sodium (Lovenox) 40 mg SC DAILY [facility] Last Admin: 04/12/18 07:27 Dose: 40 mg Famotidine (Pepcid) 20 mg PO DAILY [facility] Last Admin: 04/12/18 07:26 Dose: 20 mg Fentanyl (Duragesic Patch) 50 mcg TRANSDERM. Q72H [facility] Last Admin: 04/10/18 13:08 Dose: 50 mcg [facility]) [facility] Admin: 04/12/18 07:26 Dose: 300 mg Hydroxyzine Pamoate (Vistaril Pamoate Capsule) 25 mg PO BID [facility] Last Admin: 04/12/18 12:22 Dose: 25 mg Magnesium Hydroxide (Milk Of Magnesia) 30 ml PO .PRN X 1 PRN PRN Reason: Constipation Multivitamins/Minerals (Multivitamin With Minerals) [facility] Last Admin: 04/12/18 07:26 Dose: 1 tablet Nicotine (Nicoderm Cq (Pbkc)) 21 mg TRANSDERM. DAILY [facility] Last Admin: 04/12/18 12:22 Dose: 21 mg Oxycodone HCl (Oxyir) 10 mg PO Q6H PRN PRN PRN Reason: SEVERE PAIN (6-10/10) Last Admin: 04/12/18 14:23 Dose: 10 mg Senna/Docusate Sodium (Senokot-S, Stefanie-Colace) 2 tablet PO BID [facility] Last Admin: 04/12/18 07:28 Dose: 2 tablet Discharge Diet: No Restrictions Discharge Activity: May Not Drive, May not drive while taking narcotic pain medications., May Shower, Use Walker, - - Do not soak in a tub bath until cleared by Surgeon Weight Bearing Status: Weight bearing as tolerated Call your doctor if your incision/area has: Increased Pain/ Swelling, Increased Redness, Foul Smelling Discharge, Swelling at the incision site Call your doctor if you observe: Fever of 101 or Higher, Coldness, Increased Pain, Numbness or Tingling, Change in Color, Inability to urinate, Inability to have a bowel movement, Using more than one pad per hour, Shortness of breath, Dizziness, Fainting spells, Swelling in the ankles, Chest pain, Prolonged hiccoughing, Increased palpitations (irregular heartbeat), Calf discomfort, Uncontrolled pain Home Medications: Medications to take at Discharge Buprenorphine HCl/Naloxone HCl [Suboxone 2 mg-0.5 mg Sl Film] 1 ea SL BID 07/30/14 Acetaminophen [Tylenol] 1,000 mg PO TID 04/04/18 Ascorbic Acid [Vitamin C] 500 mg PO DAILY@0800 04/04/18 Cholecalciferol (VIT D3) [Vitamin D3] 1,000 unit PO DAILY 04/04/18 Gabapentin [Neurontin] 300 mg PO BIDCM 04/04/18 Multivitamins,Ther W-Minerals [Multivitamin With Minerals] 1 tablet PO DAILY 04/04/18 Celecoxib [Celebrex] 100 mg PO BID #60 cap 04/12/18 Nicotine [Nicoderm Cq] 21 mg TRANSDERM. DAILY #7 patch 04/12/18 Oxycodone [Oxyir] 10 mg PO Q6H PRN 7 Days #21 tab 04/12/18 fentaNYL patch [Duragesic patch] 25 mcg TRANSDERM. Q72H 6 Days #2 patch 04/12/18 hydrOXYzine pamoate capsule [Vistaril pamoate capsule] 25 mg PO QHS #60 cap 04/12/18 Following Prescrptions Were Given to Patient: fentaNYL patch [Duragesic patch] 25 mcg TRANSDERM. Q72H 6 Days #2 patch hydrOXYzine pamoate capsule [Vistaril pamoate capsule] 25 mg PO QHS #60 cap Nicotine [Nicoderm Cq] 21 mg TRANSDERM. DAILY #7 patch Celecoxib [Celebrex] 100 mg PO BID #60 cap Oxycodone [Oxyir] 10 mg PO Q6H PRN 7 Days #21 tab PRN Reason: Severe Pain (6-01/30) Primary Care Physician: Peggy Jeffrey, LUCY-C [Primary Care Provider] - Please Follow Up With: Marielos Dunne - Outpatient physical therapy When: Sunday Please Follow Up With: Fransisco Jarvis Please Follow Up With: Cirilo Amado When: Dr. Urbano Disposition: Home Rehab Course The patient is a 43 year old right handed male, who is admitted to the rehab unit for rehabilitation, s/p bilateral total knee replacement at the [facility] by Dr. Rashel Jarvis. Post Op recovery was uneventful. He has a PMH of Osteoarthritis, and Opioid abuse, which he is on Suboxone for. He is WBAT, he has Silverlon dressing to bilateral knees, dressings are C/D/I, dressings are to be removed 04/08/18. He lives with his brother in a single story home with 3 steps to get into the house. The plan is to return home to his mother house which is also a single story dwelling with 3 steps to get into the home. He was previously completely functionally independent and is admitted to the rehab unit in order to restore his previous level of functional independence. While in the Rehab unit (RU) his other medical conditions were monitored. While in the RU he improved with therapy and gained strength. His stay during that time was uncomplicated and he was able to be discharged home on 04/13/18 to complete the remainder of his care as an outpatient. Summary of Care: - Physical therapy for gait and balance - Occupational Therapy for ADLs - As needed analgesics - Bowel protocol - DVT prophylaxis: SCDs, Lovenox - B/L TKA Incisions covered with Silverlon dressings, dressings are C/D/I, dressings are to be removed 04/08/18 - Tobacco dependence = nicotine patch for tobacco cravings - Weight bearing status => WBAT, BLE - Fall precaution - B/L thigh discomfort and swelling - Ice packs to both thighs - Ultra sound of thigh, DVT - dopplar was negative for DVTs - Plan is discharge on Sunday, 04/13 with outpatient Physical therapy, and all follow up appointments Summery of Therapy sessions: With Physical therapy, He is stand by assist to get in and out of bed, and coming to a stand from a sitting position. He is able to walk greater than 275 feet using a walker. He has gone up and down 8 steps using 2 hand rails at stand by assist. His TUG score on admission was 33 seconds, his most recent TUG score was 19.8 seconds. With Occupational therapy, he is stand by to supervision for his personal care, he is able to reach his lower body without bending his knees. He is stand by assist for getting in and out of the shower. With Nursing his vital signs have been stable, his pain has been a slight issue increased his Fentanyl patch to 50mcq, and decrease the number of doses he is allowed his Oxy IR. The staff feels he is doing very well and recommend that he be discharged home on 04/13 with outpatient Physical therapy. Will make all his follow up appointments with his surgeon, PCP, and pain management team. Meaningful Use Info Meaningful Use Diagnoses (Choose all that apply): None applicable 04/12/18 1606 <Electronically signed by Kathy DOMINGUEZC> Date Kathy Melara WEIGHING STATION OPERATOR-C 04/12/18 1619<Electronically signed by Eugenio Stringer MD> Cosigner Signature (if applicable): Date Eugenio Stringer MD CC: LUCY Melara; Kris Stringer MD; Peggy WISEMAN Addendum DISCHARGE INSTRUCTION Observed: 04/12/2018 Status: F Source: [place] 4:05 PM [facility] Medical Records Department [address] [place] [id number] Instructions for Home/Discharge Instructions 04/12/18 1522 MR#: [id number] Acct: [id number] Name: MANUFACTURING ANALYSTFRANSISCO Rep #: [id number] : 1975 43 From: Kathy LOYA PCP: Peggy Bell Status: ADM IN - Discharge Diagnoses Reason(s) for Visit for Discharge Instructions: Bilateral Knee Replacement You will use the following diet at home:: Regular Your food should be the consistency of: Regular Your liquids should be the consistency of: Regular/Thin Discharge Activity: May Not Drive, May not drive while taking narcotic pain medications., May Shower, Use Walker, - - Do not soak in a tub bath until cleared by Surgeon Weight Bearing Status: Weight bearing as tolerated Call your doctor if your incision/area has: Increased Pain/ Swelling, Increased Redness, Foul Smelling Discharge, Swelling at the incision site Call your doctor if you observe: Fever of 101 or Higher, Coldness, Increased Pain, Numbness or Tingling, Change in Color, Inability to urinate, Inability to have a bowel movement, Using more than one pad per hour, Shortness of breath, Dizziness, Fainting spells, Swelling in the ankles, Chest pain, Prolonged hiccoughing, Increased palpitations (irregular heartbeat), Calf discomfort, Uncontrolled pain Allergies/Adverse Reactions: Allergies No Known Allergies Allergy (Verified 07/04/17 09:39) Medications to take at Discharge Buprenorphine HCl/Naloxone HCl [Suboxone 2 mg-0.5 mg Sl Film] 1 ea SL BID 07/30/14 Acetaminophen [Tylenol] 1,000 mg PO TID 04/04/18 Ascorbic Acid [Vitamin C] 500 mg PO DAILY@0800 04/04/18 Cholecalciferol (VIT D3) [Vitamin D3] 1,000 unit PO DAILY 04/04/18 Gabapentin [Neurontin] 300 mg PO BIDCM 04/04/18 Multivitamins,Ther W-Minerals [Multivitamin With Minerals] 1 tablet PO DAILY 04/04/18 Celecoxib [Celebrex] 100 mg PO BID #60 cap 04/12/18 Nicotine [Nicoderm Cq] 21 mg TRANSDERM. DAILY #7 patch 04/12/18 Oxycodone [Oxyir] 10 mg PO Q6H PRN 7 Days #21 tab 04/12/18 fentaNYL patch [Duragesic patch] 25 mcg TRANSDERM. Q72H 6 Days #2 patch 04/12/18 hydrOXYzine pamoate capsule [Vistaril pamoate capsule] 25 mg PO QHS #60 cap 04/12/18 The following prescriptions were given: fentaNYL patch [Duragesic patch] 25 mcg TRANSDERM. Q72H 6 Days #2 patch hydrOXYzine pamoate capsule [Vistaril pamoate capsule] 25 mg PO QHS #60 cap Nicotine [Nicoderm Cq] 21 mg TRANSDERM. DAILY #7 patch Celecoxib [Celebrex] 100 mg PO BID #60 cap Oxycodone [Oxyir] 10 mg PO Q6H PRN 7 Days #21 tab PRN Reason: Severe Pain (-01/30) Primary Care Physician: Peggy Jeffrey NP-C [Primary Care Provider] - Test Results: Test results from this visit will be discussed in further detail at your follow-up appointment, if applicable. Please Follow Up With: Marielos Dunne - Outpatient physical therapy When: Sunday Please Follow Up With: rFansisco Jarvis Please Follow Up With: Cirilo Ingris When: Dr. Urbano Please Follow Up With: primary care doctor Proposed Discharge Date: 04/13/18 04/12/18 6548 <Electronically signed by Kathy LOYA> Date Kathy LOYA CC: Peggy WISEMAN; Chava Wilkinson MD Signed H AND P W/ COSIGN Observed: 04/06/2018 Status: F Source: [place] 10:06 AM [facility] Medical Records Department [address] [place] [address] H AND P w/ Cosign 04/05/18 1035 MR#: [id number] Acct: [id number] Name: MANUFACTURING ANALYST,FRANSISCO Peterson Rep #: [id number] : 1975 43 From: Kathy LOYA PCP: Peggy Bell Status: ADM IN Y Location: [place] [address] History of Present Illness Date of Admission: 04/04/18 Chief Complaint: Bilateral Total Knee Replacement The patient is a 43 year old right handed male, who is admitted to the rehab unit for rehabilitation, s/p bilateral total knee replacement at the [facility] by Dr. Rashel Jarvis. Post Op recovery was uneventful. He has a PMH of Osteoarthritis, and Opioid abuse, which he is on Suboxone for. He is WBAT, he has Silverlon dressing to bilateral knees, dressings are C/D/I, dressings are to be removed 04/08/18. He lives with his brother in a single story home with 3 steps to get into the house. The plan is to return home to his mother house which is also a single story dwelling with 3 steps to get into the home. He was previously completely functionally independent and is admitted to the rehab unit in order to restore his previous level of functional independence. Past Medical History Allergies No Known Allergies Allergy (Verified 07/04/17 09:39) Home Medications: Ambulatory Orders Medication Instructions Recorded Buprenorphine HCl/Naloxone HCl 1 ea SL BID 07/30/14 [Suboxone 2 mg-0.5 mg Sl Film] Celecoxib [Celebrex] 100 mg PO BID 06/24/17 Surgical History: Surgical History (Last Updated 07/04/17 @ 09:46 by Patito Love) S/P left knee surgery Z98.890 ACL meniscus repair 2009 Surgical History: - - Anterior cruciate ligament repair 2008, and Mouth surgery 2006 Psychiatric History: Anxiety Lives: With Family Smoking Status: Current every day smoker Tobacco Use: Cigarettes Alcohol: Occasional Drugs: - - H/O opioid abuse Review of Systems Constitutional: Denies: Chills, Fever, Weight Change HEENT: Denies: Head Aches, Sinus Congestion, Sinus Drainage Cardiovascular: Denies: Chest Pain, Palpitations Respiratory: Denies: Cough, Shortness of breath at rest, Sputum production Gastrointestinal: Denies: Abdominal Pain, Nausea, Vomiting Genitourinary: Denies: Dysuria Musculoskeletal: Denies: Joint Pain, Joint Tenderness Skin: Denies: Rash, Wounds Neurological: Denies: Numbness, Tingling, Focal weakness Psychiatric: Denies: Anxiety, Depression, Homicidal Ideations, Suicidal Ideations Hematologic/ Lymphatic: Denies: Easy Bruising, Easy Bleeding VTE Information - Inpt Only VTE Present on Admission: No VTE Mechan Device Prophylaxis: Knee High DARRYL Hose VTE Pharm Prophylaxis ordered?: Yes - Physical Exam General: Alert, Oriented x3, Cooperative HEENT: Atraumatic, PERRLA, EOMI, Normocephalic Neck: Supple, No JVD, Negative Carotid Bruits Lungs: Clear to auscultation, Normal air movement Cardiovascular: Regular rate, No murmurs Abdomen: Bowel Sounds Present, Soft, Non Tender Extremities: No edema, Capillary Refill Less than 3 Seconds Skin: No rashes, No breakdown Musculoskeletal: No Tenderness to Palpation of Joints or Extremities Neurological: Cranial nerves II-XII grossly intact Psych/Mental Status: Normal Affect, Appropriate, Alert and oriented to time, place, person, mood and affect Vital Signs Temp Pulse Resp BP Pulse Ox 98.8 F 88 16 122/71 H 99 04/05/18 07:00 04/05/18 07:00 04/05/18 07:00 04/05/18 07:00 04/05/18 07:00 Oxygen Delivery Method Room Air Weight: 118.3 kg Body Mass Index (BMI) 30.9 Intake and Output for Last 24 Hours Intake Total 360 / 360 Output Total 800 / 800 450 / 450 Balance -800 / -800 -90 / -90 Laboratory Tests Past 24 Hrs WBC RBC Hgb Hct MCV MCH MCHC RDW RDW Differential Plt Count MPV Immature Gran % (Auto) Neut % (Auto) Lymph % (Auto) Active Medications Acetaminophen (Tylenol) 1,000 mg PO TID [facility] Last Admin: 04/05/18 06:11 Dose: 1,000 mg Ascorbic Acid (Vitamin C) 500 mg PO DAILY@0800 [facility] Last Admin: 04/05/18 07:32 Dose: 500 mg Bisacodyl (Dulcolax) 10 mg RECTAL .PRN X 1 PRN PRN Reason: Constipation Calcium Carbonate (Tums) 500 mg PO DAILY@0800 [facility] Last Admin: 04/05/18 07:33 Dose: 500 mg Celecoxib (Celebrex) 100 mg PO BID [facility] Last Admin: 04/05/18 07:32 Dose: 100 mg Cholecalciferol (Vitamin D) 1,000 unit PO DAILY [facility] Last Admin: 04/05/18 07:32 Dose: 1,000 unit Enoxaparin Sodium (Lovenox) 40 mg SC DAILY [facility] Last Admin: 04/05/18 07:33 Dose: 40 mg Famotidine (Pepcid) 20 mg PO DAILY [facility] Last Admin: 04/05/18 07:32 Dose: 20 mg Fentanyl (Duragesic Patch) 25 mcg TRANSDERM. Q72H [facility] Last Admin: 04/04/18 13:45 Dose: 25 mcg [facility] Last Admin: 04/05/18 07:32 Dose: 300 mg Hydroxyzine Pamoate (Vistaril Pamoate Capsule) 25 mg PO QHS [facility] Last Admin: 04/04/18 20:17 Dose: 25 mg Magnesium Hydroxide (Milk Of Magnesia) 30 ml PO .PRN X 1 PRN PRN Reason: Constipation Multivitamins/Minerals ([facility]ivitamin With Minerals) [facility] Last Admin: 04/05/18 07:32 Dose: 1 tablet Nicotine (Nicoderm Cq (Pbkc)) 21 mg TRANSDERM. DAILY [facility] Last Admin: 04/05/18 08:38 Dose: 21 mg Oxycodone HCl (Oxyir) 10 mg PO Q3H PRN PRN Reason: SEVERE PAIN (6-10/10) Last Admin: 04/05/18 07:33 Dose: 10 mg Senna/Docusate Sodium (Senokot-S, Stefanie-Colace) 2 tablet PO BID [facility] Last Admin: 04/05/18 07:32 Dose: 2 tablet Assessment/Plan Debility S/P Bilateral total knee replacement. Goal goal of rehab is hinduism of functional independence. Plan: - Physical therapy for gait and balance - Occupational Therapy for ADLs - As needed analgesics - Bowel protocol - DVT prophylaxis: SCDs, Lovenox - B/L TKA Incisions covered with Silverlon dressings, dressings are C/D/I, dressings are to be removed 04/08/18 - Tobacco dependence = nicotine patch for tobacco cravings - Weight bearing status => WBAT, BLE - Fall precaution 04/05/18 1613 <Electronically signed by Kathy Melara [employer]IGHING [employer]ATION OPERATOR-C> Date Kathy Melara WEIGHING [employer]ATION OPERATOR-C 04/06/18 1006<Electronically signed by Roldan Hayward MD> Cosigner Signature (if applicable): Date Roldan Hayward MD CC: LUCY Melara; Peggy WISEMAN; Roldan Hayward MD Signed CBC W/DIFF, AUTOMATED Collected: 04/05/2018 Status: F Source: [place] 5:25 AM [facility] REPOSITORY TYPE CODE TESTS RESULT OUT OF RANGE REFERENCE UNITS LAB L100.1000 4.4-11.0 K/mm3 Normal WBC 8.8 LAB L100.1200 4.6-6.2 M/mm3 Low RBC 4.47 LAB L100.1300 13.0-16.5 g/dl Low HGB 12.9 LAB L100.1400 40-54 % Low HCT 39.3 LAB L100.1500 80-94 fL Normal MCV 87.9 LAB L100.1600 27.0-32.0 pg Normal MCH 28.9 LAB L100.1700 32-36 g/gl Normal MCHC 32.8 LAB L100.1810 11.6-14.6 % Normal RDW CV 12.9 LAB L100.1820 35.1-43.9 fl Normal RDW SD 41.7 LAB L100.1900 150-450 K/mm3 Normal PLT 224 LAB L100.2000 6.2-12.0 fl Normal MPV 10.2 LAB L100.2100 47-70 % Normal NEUT% 57.1 LAB L100.2200 19-41 % Normal LY% 32.0 LAB L100.2300 0-10 % Normal MONO% 6.6 LAB L100.2400 0-5 % Normal EO% 3.8 LAB L100.2500 0-1 % Normal BASO% 0.3 LAB L100.2550 0.0-0.9 % Normal IM GRAN % 0.200 Result Comment: IG% - Immature Granulocytes (promyelocytes, myelocytes and metamyelocytes) > 1% indicates that a LEFT SHIFT is Present. LAB L100.2620 2.0-7.7 X10 3/uL Normal Absolute Neut 5.0 LAB L100.2720 0.83-4.51 X10 3/ul Normal Absolute Lymph 2.81 Performed By: #### L100.0100 #### [facility] [address] [place], [place], [address] BASIC METABOLIC Collected: 04/05/2018 Status: F Source: [place] PROFILE (BMP) 5:25 AM [facility] REPOSITORY TYPE CODE TESTS RESULT OUT OF RANGE REFERENCE UNITS LAB L501.0100 74-106 mg/dL Normal GLU 101 Result Comment: Fasting Glucose result from 100 to 125 mg/dL suggests IMPAIRED HOMEOSTASIS per A.D.A. criteria. Please note revised GLUCOSE reference range effective 2017. LAB L501.1000 7-18 mg/dL Normal BUN 12 LAB L501.1100 0.70-1.30 mg/dL Low CREAT,SERUM 0.64 Result Comment: The validity of the calculated GFR AND GFRAA in patients over 70 years has not been determined. Clinical correlation is essential. LAB L501.1110 >60 mL/min Normal EST GFR 146 Result Comment: Non- GFR Calc LAB L501.1115 >60 mL/min Normal EST GFR - AA 176 Result Comment: GFR Calc LAB L501.1255 ml/min Normal Estimated CRCL 189.49 LAB L501.1300 10-20 RATIO BUN/CRE Normal 18.7 LAB L501.2200 8.5-10 mg/dL .1 CA Normal 8.5 LAB L501.5300 136-14 mmol/L 5 NA Normal 141 LAB L501.5600 3.5-5. mmol/L 1 K Normal 3.9 LAB L501.5900 98-107 mmol/L CL Normal 106 LAB L501.6100 21.0-3 mmol/L 2.0 CO2 Normal 27.0 LAB L501.6200 5-15 GAP Normal 8 Performed By: #### L500.2500, L501.5200 #### [facility] [address] [place], [address] MAGNESIUM Collected: 04/05/2018 Status: F Source: [place] 5:25 AM [facility] REPOSITORY TYPE CODE TESTS RESULT OUT OF RANGE REFERENCE UNITS LAB L501.5200 1.6-2.6 mg/dL Normal MG 2.1 Performed By: #### L500.2500, L501.5200 #### [facility] [address] [place], [address] PHOSPHORUS Collected: 04/05/2018 Status: F Source: [place] 5:25 AM [facility] REPOSITORY TYPE CODE TESTS RESULT OUT OF RANGE REFERENCE UNITS LAB L501.2300 2.5-4.9 mg/dL Normal PHOS 4.5 Performed By: #### L501.2300 #### [facility] [address] [place], [address] VITAMIN D,25 HYDROXY Collected: 04/05/2018 Status: F Source: [place] 5:25 AM [facility] REPOSITORY TYPE CODE TESTS RESULT OUT OF RANGE REFERENCE UNITS LAB L506.1000 29.95-100.01 ng/mL Normal Vitamin D 38.6 25-OH Result Comment: Vitamin D 25(OH) Status Range Deficiency <20 ng/mL (50nmol/L) Insuffciency 20 - 30 ng/mL (50 - 75 nmol/L) Sufficiency 30 - 100 ng/mL (75 - 250 nmol/L) Toxicity >100 ng/mL (>250 nmol/L) Performed By: #### L506.1000 #### [facility] [address] [place], [address] HEMOGRAM W/ AUTODIFF Collected: 04/04/2018 Status: F Source: [employer] 5:13 AM SYSTEM REPOSITORY TYPE CODE TESTS RESULT OUT OF REFERENCE UNITS RANGE LAB IWBC 3.6-10.7 10*3/uL WBC High 12.1 LAB RBC 4.40-5.90 10*6/uL RBC Normal 4.58 LAB HGB 13.0-18.0 g/dL Hemoglobin Normal 13.3 LAB HCT 40.0-52.0 % Low Hematocrit 39.2 LAB MCV 80.0-98.0 fL MCV Normal 85.6 LAB MCH 26.0-34.0 pg MCH Normal 29.0 LAB MCHC 32.0-36.0 % MCHC Normal 33.9 LAB RDW 11.5-14.5 % RDW Normal 12.9 LAB PLT 140-440 10*3/uL Platelet Normal 202 LAB MPV 7.4-10.4 fL MPV Normal 8.8 LAB GRAN% 40.0-80.0 % Granulocytes Normal 58.9 LAB LYMP% 20.0-40.0 % Lymphocytes Normal 29.7 LAB MONO% 2.0-10.0 % Monocytes Normal 8.8 LAB EOS% 1.0-6.0 % Eosinophils Normal 2.3 LAB BAS% 0.0-2.0 % Basophils Normal 0.3 LAB ANC 1.8-7.0 10*3/uL Abs High Neutrophile Cnt 7.1 LAB ALC 1.0-4.3 10*3/uL Abs Lymph Cnt Normal 3.6 LAB AMC 0.0-0.8 10*3/uL Abs Monocyte High Cnt 1.1 LAB AEC 0.0-0.5 10*3/uL Abs Eosin Cnt Normal 0.3 LAB ABC 0.0-0.2 10*3/uL Abs Baso Cnt Normal 0.0 Performed By: #### HEMDF #### [facility] [address] [place] [address] BASIC METABOLIC PANEL Collected: 04/03/2018 Status: F Source: [employer] 3:36 AM SYSTEM REPOSITORY TYPE CODE TESTS RESULT OUT OF RANGE REFERENCE UNITS LAB NA3 135-145 mmol/L Normal Sodium 142 Result Comment: NOTE: New Sodium Reference Range effective 2018 @ 10:00 LAB K3 3.5-5.1 mmol/L Normal Potassium 3.8 LAB CL3 98-107 mmol/L High Chloride 109 LAB CO23 22-30 mmol/L Normal Carbon Dioxide 25 LAB ANIN3 NA Anion Gap 7 LAB GLUC3 70-100 mg/dL High Glucose 125 LAB BUN3 7-20 mg/dL Normal Urea Nitrogen 9 LAB CRET3 0.52-1.25 mg/dL Normal Creatinine 0.60 LAB GF3BR >60 mL/min eGFR > 60.0 LAB GF3WR >60 mL/min eGFR OTHER > 60.0 Result Comment: Source- MDRD equation with creatinine calibration to IDMS(NKDEP) eGFR not recommended for drug dose adjustment LAB CA3 8.4-10.4 mg/dL Normal Calcium 8.9 Performed By: #### BMP3, HEMDF, RBCMO #### [facility] [address] [place] [address] HEMOGRAM W/ AUTODIFF Collected: 04/03/2018 Status: F Source: [employer] 3:36 AM SYSTEM REPOSITORY TYPE CODE TESTS RESULT OUT OF REFERENCE UNITS RANGE LAB IWBC 3.6-10.7 10*3/uL WBC High 14.6 LAB RBC 4.40-5.90 10*6/uL RBC Normal 4.54 LAB HGB 13.0-18.0 g/dL Hemoglobin Normal 13.4 LAB HCT 40.0-52.0 % Low Hematocrit 39.3 LAB MCV 80.0-98.0 fL MCV Normal 86.4 LAB MCH 26.0-34.0 pg MCH Normal 29.4 LAB MCHC 32.0-36.0 % MCHC Normal 34.1 LAB RDW 11.5-14.5 % RDW Normal 13.2 LAB PLT 140-440 10*3/uL Platelet Normal 212 LAB MPV 7.4-10.4 fL MPV Normal 8.1 LAB GRAN% 40.0-80.0 % Granulocytes Normal 64.2 LAB LYMP% 20.0-40.0 % Lymphocytes Normal 24.2 LAB MONO% 2.0-10.0 % Monocytes High 10.9 LAB EOS% 1.0-6.0 % Low Eosinophils 0.3 LAB BAS% 0.0-2.0 % Basophils Normal 0.4 LAB ANC 1.8-7.0 10*3/uL Abs High Neutrophile Cnt 9.4 LAB ALC 1.0-4.3 10*3/uL Abs Lymph Cnt Normal 3.5 LAB AMC 0.0-0.8 10*3/uL Abs Monocyte High Cnt 1.6 LAB AEC 0.0-0.5 10*3/uL Abs Eosin Cnt Normal 0.0 LAB ABC 0.0-0.2 10*3/uL Abs Baso Cnt Normal 0.1 Performed By: #### BMP3, HEMDF, RBCMO #### [facility] [address] [place] [address] RBC MORPHOLOGY Collected: 04/03/2018 Status: F Source: [employer] 3:36 AM SYSTEM REPOSITORY TYPE CODE TESTS RESULT OUT OF REFERENCE UNITS RANGE LAB RBMOR NA RBC Morphology Normal Performed By: #### BMP3, HEMDF, RBCMO #### [facility] [address] [place] [address] HEMOGRAM W/ AUTODIFF Collected: 04/02/2018 Status: F Source: [employer] 5:21 AM SYSTEM REPOSITORY TYPE CODE TESTS RESULT OUT OF REFERENCE UNITS RANGE LAB IWBC 3.6-10.7 10*3/uL WBC High 21.1 LAB RBC 4.40-5.90 10*6/uL RBC Normal 4.68 LAB HGB 13.0-18.0 g/dL Hemoglobin Normal 13.6 LAB HCT 40.0-52.0 % Low Hematocrit 39.5 LAB MCV 80.0-98.0 fL MCV Normal 84.4 LAB MCH 26.0-34.0 pg MCH Normal 29.1 LAB MCHC 32.0-36.0 % MCHC Normal 34.5 LAB RDW 11.5-14.5 % RDW Normal 12.7 LAB PLT 140-440 10*3/uL Platelet Normal 246 LAB MPV 7.4-10.4 fL MPV Normal 8.6 LAB GRAN% 40.0-80.0 % Granulocytes High 84.3 LAB LYMP% 20.0-40.0 % Low Lymphocytes 9.3 LAB MONO% 2.0-10.0 % Monocytes Normal 6.3 LAB EOS% 1.0-6.0 % Low Eosinophils 0.0 LAB BAS% 0.0-2.0 % Basophils Normal 0.1 LAB ANC 1.8-7.0 10*3/uL Abs High Neutrophile Cnt 17.8 LAB ALC 1.0-4.3 10*3/uL Abs Lymph Cnt Normal 2.0 LAB AMC 0.0-0.8 10*3/uL Abs Monocyte High Cnt 1.3 LAB AEC 0.0-0.5 10*3/uL Abs Eosin Cnt Normal 0.0 LAB ABC 0.0-0.2 10*3/uL Abs Baso Cnt Normal 0.0 Performed By: #### HEMDF, BMP3 #### [facility] [address] [place] [address] BASIC METABOLIC PANEL Collected: 04/02/2018 Status: F Source: [employer] 5:21 AM SYSTEM REPOSITORY TYPE CODE TESTS RESULT OUT OF RANGE REFERENCE UNITS LAB NA3 135-145 mmol/L Normal Sodium 138 Result Comment: NOTE: New Sodium Reference Range effective 2018 @ 10:00 LAB K3 3.5-5.1 mmol/L Normal Potassium 4.1 LAB CL3 98-107 mmol/L High Chloride 109 LAB CO23 22-30 mmol/L Low Carbon Dioxide 21 LAB ANIN3 NA Anion Gap 9 LAB GLUC3 70-100 mg/dL High Glucose 169 LAB BUN3 7-20 mg/dL Normal Urea Nitrogen 14 LAB CRET3 0.52-1.25 mg/dL Normal Creatinine 0.64 LAB GF3BR >60 mL/min eGFR > 60.0 LAB GF3WR >60 mL/min eGFR OTHER > 60.0 Result Comment: Source- MDRD equation with creatinine calibration to IDMS(NKDEP) eGFR not recommended for drug dose adjustment LAB CA3 8.4-10.4 mg/dL Normal Calcium 9.0 Performed By: #### HEMLASHAWN, BMP3 #### [facility] [address] [place] [address] OP NOTE Observed: 04/01/2018 Status: F Source: [employer] 5:06 PM SYSTEM REPOSITORY Dictated [id number]. OP NOTE Observed: 04/01/2018 Status: F Source: [employer] 5:06 PM SYSTEM REPOSITORY PATIENT: FRANSISCO CANTOR ADMISSION DATE: 04/01/2018 SURGERY DATE: 04/01/2018 DATE OF : 1975 AGE: 43 ADMITTING PHYSICIAN: Rashel Jarvis MD ATTENDING PHYSICIAN: Rashel Jarvis MD DICTATING PHYSICIAN: Rashel Jarvis MD OPERATIVE RECORD PROCEDURE: BILATERAL TOTAL KNEE ARTHROPLASTIES. PREOPERATIVE DIAGNOSIS: Degenerative arthritis, both knees. POSTOPERATIVE DIAGNOSIS: Degenerative arthritis, both knees. ANESTHESIA: Spinal. ASSISTANTS: 1. Ke Butler M.D. 2. Amanda Love CST. ESTIMATED BLOOD LOSS: 50 cc. FLUIDS: Crystalloid per anesthesia. MEDICATIONS: Ancef 2 g IV preoperatively and TXA 1 g IV preoperatively. Ancef 1 g IV intraoperatively before starting the 2nd side and TXA 1 g IV intraoperatively before starting the 2nd side. COMPLICATIONS: None. COMPONENTS USED: Triathlon cruciate retaining cementless knees from [employer]. Right knee sizes: Size 6 femur, size 7 tibial base plate, 16 mm X3 polyethylene CS tibial insert, 38 mm Tritanium backed X3 polyethylene asymmetric patellar button. Left knee sizes: Size 6 femur, size 7 tibial base plate, 11 mm X3 polyethylene CS tibial insert, 38 mm Tritanium backed X3 polyethylene asymmetric patellar button. CLINICAL HISTORY AND OPERATIVE INDICATIONS: The patient is a 43-year-old male with long history of bilateral knee pain. Clinical and radiographic findings were consistent with severe [id number] degenerative joint disease of both knees. Despite his young age, he had failed conservative treatment including reactive modification, anti-inflammatories, physical therapy, and injections. He had no other recourse, but to consider knee replacement surgery. I recommended the use of cementless knees because of his young age for better longevity. The procedure was explained in detail to the patient including potential risks and complications. Informed consent was signed. DESCRIPTION OF PROCEDURE: The patient was taken to the operating room on the afternoon of April 01 in stable condition. He was placed upright on the operative table. A spinal anesthetic was induced. Once anesthetized, he was placed supine. Pneumatic tourniquets were placed around both thighs. Care was taken to pad all of his bony prominences. Both legs were prepped and draped in usual sterile orthopedic fashion. I began on the left side. The left leg was exsanguinated. Tourniquet was elevated to 300 mmHg pressure. The knee was flexed to 90 degrees and I began the operation. An anterior incision was made over the left knee from just above the superior pole of patella down to the tibial tubercle. The dissection was carried out through skin and subcutaneous tissues with a scalpel. The Bovie was used to maintain hemostasis. Full-thickness skin flaps were mobilized. A medial parapatellar arthrotomy was made. Patella was subluxated, but not everted laterally. The retropatellar fat pad was excised and soft tissue reflected off the tibia to expose the tibial plateau. The extramedullary proximal tibial cutting jig was pinned in the center of the plateau. The bar of the jig was placed along the long axis of the tibia in line to the second metatarsal. The jig was placed in 3 degrees posterior slope. A depth gauge was used to pin the block off the deepest tibial defect. Retractors protected the collateral ligaments while the tibial cut was made with the oscillating saw. The wedge of tibial bone was removed without difficulty and I turned my attention to the femoral side. A drill was used to enter the intramedullary canal of the femur. The flexible IM guide mira was placed. The distal femoral cutting block was placed over the guide mira and flushed with the distal femur. An 8 mm distal resection was made in 5 degrees of valgus. The distal femur was sized appropriately and the 4 in 1 femoral cutting block was applied in 3 degrees external rotation. The block was pinned and the anterior, posterior, and chamfer cuts were made. At this point, a lamina rubber roller grinder was placed to gain access to the posterior aspect of the knee joint. All remaining posterior meniscus and osteophytes removed. Our flexion and extension gaps were checked and found to be equal and rectangular, began to trial. The knee was hyperflexed and tibia was brought forward on the femur with a blunt Hohmann. The tibia sized appropriately. A trial tibial base plate was pinned off the medial third of the tibial tubercle. A trial femoral component was placed and we trialed various polyethylene thicknesses. A 9 mm insert initially gave us good stability. We had full range of motion. Good collateral ligament stability throughout the arc of motion. The knee was extended. Patella was everted with a towel clamp. Bone was removed from the back side to create a flat surface. Three drill holes were made in preparation for an onlay patellar button. A patellar trial was placed. These were taken through range of motion again. We had excellent patellofemoral tracking. I was happy with these trial components and the trials were removed. We drilled for leg holes in the distal femur. We punched our tibia and drilled for our cementless pegs on the tibia and the knee was prepared for final implantation. The knee was irrigated and clean. Our final implants were then inserted. Tibial component was placed 1st followed by the femur and our patellar component. Initially, we placed a 9 mm CS tibial insert and this was locked into position. At this point, the knee was examined more carefully and we found unacceptable collateral ligament laxity throughout the arc of motion. I removed the 9 mm insert and up sized to an 11. This gave us much better stability. We had a full arc of motion and good patellofemoral tracking. That completed the left side. The knee was irrigated one final time before beginning the closure. The medial retinacular was closed with #1 Nurolon in interrupted fashion. Subcutaneous layer was closed with 2-0 Vicryl. Skin was closed with 4-0 Monocryl in running subcuticular fashion. Our tourniquet time on the left side was approximately an hour and 40 minutes. A provisional dressing was placed on the left and we turned our attention to the right knee. The right knee proceeded exactly as described on the left. The only difference between the right knee and the left was somewhat large posterior medial tibial defect that we had to resect extra tibial bone to get to the bottom of the defect. This resulted in as placing a 16 mm CS tibial insert on the right side. Otherwise, the procedure was exactly as described on the left. Once the wound was closed, tourniquet time on the left was approximately an hour and 35 minutes. Sterile dressings were placed on both knees. The patient was awakened without difficulty and taken to the recovery room in stable condition. cc: Vita Pinto MD DOD:04/01/2018 05:06 P Any DOT:04/01/2018 07:34 P Job Number: [id number] Document Number: [id number] cc: Rashel Jarvis MD [place] [address] DISCHARGE SUMMARY Observed: 04/01/2018 Status: F Source: [employer] 4:40 PM SYSTEM REPOSITORY Patient Name: Fransisco Cantor Date of : 1975 Date: 04/01/18 Discharge Summary Admit date: 04/01/2018 Discharge date and time: 04/04/18 Admitting Physician: Rashel Jarvis MD Admission Diagnoses: Bilateral knee osteoarthritis Discharge Diagnoses: Same Problem List: Principal Problem: Primary osteoarthritis of both knees Resolved Problems: * No resolved hospital problems. * Operative Procedures: Bilateral total knee arthroplasty Hospital Course: Pt was discharged in improved condition compared to preoperative condition. Disposition: Per SW Discharge Medications: Medication List ASK your doctor about these medications celecoxib 100 MG capsule Commonly known as: CELEBREX gabapentin 300 MG capsule Commonly known as: NEURONTIN hydrOXYzine 25 MG capsule Commonly known as: VISTARIL SUBOXONE 8-2 MG Film SL film Generic drug: buprenorphine-naloxone therapeutic multivitamin-minerals tablet vitamin C 250 MG tablet Patient Instructions: The patient will notify me for any increased bleeding, drainage, or progressively worsening pain, or other concerning symptoms. They have been instructed to report to the emergency room immediately for any chest pain or shortness of breath. Activity Precautions: -Weight Bearing as Tolerated bilateral lower extremities Patient was provided with appropriate DVT prophylactic medication as well as appropriate analgesia medication. Wound Care: -Wash hands before touching or changing dressings -Do Not touch incision -Keep silverlon in place for 1 week after surgery -OK to shower post-op day [address] Follow-up visit with Dr. Jarvis in 3 weeks HEMOGRAM W/ AUTODIFF Collected: 03/28/2018 Status: F Source: [employer] 1:21 PM SYSTEM REPOSITORY TYPE CODE TESTS RESULT OUT OF REFERENCE UNITS RANGE LAB IWBC 3.6-10.7 10*3/uL WBC Normal 6.8 LAB RBC 4.40-5.90 10*6/uL RBC Normal 4.90 LAB HGB 13.0-18.0 g/dL Hemoglobin Normal 14.3 LAB HCT 40.0-52.0 % Hematocrit Normal 41.6 LAB MCV 80.0-98.0 fL MCV Normal 84.9 LAB MCH 26.0-34.0 pg MCH Normal 29.2 LAB MCHC 32.0-36.0 % MCHC Normal 34.5 LAB RDW 11.5-14.5 % RDW Normal 12.9 LAB PLT 140-440 10*3/uL Platelet Normal 218 LAB MPV 7.4-10.4 fL MPV Normal 8.7 LAB GRAN% 40.0-80.0 % Granulocytes Normal 41.3 LAB LYMP% 20.0-40.0 % Lymphocytes High 46.6 LAB MONO% 2.0-10.0 % Monocytes Normal 9.0 LAB EOS% 1.0-6.0 % Eosinophils Normal 2.8 LAB BAS% 0.0-2.0 % Basophils Normal 0.3 LAB ANC 1.8-7.0 10*3/uL Abs Normal Neutrophile Cnt 2.8 LAB ALC 1.0-4.3 10*3/uL Abs Lymph Cnt Normal 3.2 LAB AMC 0.0-0.8 10*3/uL Abs Monocyte Normal Cnt 0.6 LAB AEC 0.0-0.5 10*3/uL Abs Eosin Cnt Normal 0.2 LAB ABC 0.0-0.2 10*3/uL Abs Baso Cnt Normal 0.0 Performed By: #### HEMDF, CMP3 #### [facility] [address] [place] [address] COMP METABOLIC PANEL Collected: 03/28/2018 Status: F Source: [employer] 1:21 PM SYSTEM REPOSITORY TYPE CODE TESTS RESULT OUT OF RANGE REFERENCE UNITS LAB NA3 137-145 mmol/L Sodium Normal 137 LAB K3 3.5-5.1 mmol/L Normal Potassium 4.4 LAB CL3 98-107 mmol/L Chloride Normal 101 LAB CO23 22-30 mmol/L Carbon Normal Dioxide 30 LAB ANIN3 NA Anion Gap 6 LAB GLUC3 70-100 mg/dL High Glucose 113 LAB BUN3 7-20 mg/dL Urea Normal Nitrogen 10 LAB CRET3 0.52-1.25 mg/dL Normal Creatinine 0.61 LAB GF3BR >60 mL/min eGFR > 60.0 LAB GF3WR >60 mL/min eGFR OTHER > 60.0 Result Comment: Source- MDRD equation with creatinine calibration to IDMS(NKDEP) eGFR not recommended for drug dose adjustment LAB CA3 8.4-10.4 mg/dL Calcium Normal 9.3 LAB ALB3 3.5-5.0 g/dL Albumin, Serum Normal 4.5 LAB TP3 6.3-8.2 g/dL Total Protein Normal 6.7 LAB BILT3 0.2-1.3 mg/dL Normal Bilirubin,Total 0.3 LAB ALKP3 38-126 U/L Alkaline Normal Phosphatase 56 LAB ALT3 13-69 U/L ALT (SGPT) Normal 41 LAB AST3 15-46 U/L AST (SGOT) Normal 17 Performed By: #### HEMDF, CMP3 #### [facility] [address] [place] [address] Observed: 03/28/2018 Status: F Source: [employer] [facility] 1:21 PM SYSTEM REPOSITORY ABO Group: O Rh, Gel: NEG Antibody Screen Gel: NEG Performed By: #### TSGL #### [facility] [address] [place] [address] PROGRESS Observed: 03/08/2018 Status: COMPLETED Source: [place] 12:52 PM [facility] REPOSITORY HNO ID: [id number] Author: Adam Jones Service: (none) Author Type: Physician Type: Progress Notes Filed: 03/08/2018 3:35 PM Note Text: [facility] Pain Management Department Date: March 08, 2018 - 12:52 PM Fransisco Cantor is self referred. Chief Complaint: lower back pain, right lower extremity pain, and bilateral knee pain SUBJECTIVE: Fransisco Cantor, is a 42 year old year old with no significant past medical history, who presents with lower back pain, right lower extremity pain and bilateral knee pain. The pain started 8 years ago, following fall into a pool and damaging the knees. The patient states that the pain is persistent. His pain is located in the bilateral and middle lumbar region and radiates bilaterally down the right leg and knee. The pain is described as aching. The pain intensity is rated 6. The pain is exacerbated by activity, standing, walking and lying in bed and relieved by taking a hot bath. Symptoms interfere with physical activity and work. Obtained by Rosy Vaca MA by interview I have reviewed, confirmed and edited the preliminary information with the patient: In addition the patient reports no additional concerns. Litigation: No. Prior pain treatment has included no specific interventions. He had relief from the following interventions: None. ALLERGIES No Known Allergies Current Medications: Pain medications reviewed and reconciled in the medication list: Yes. Current Outpatient Prescriptions: hydrOXYzine pamoate (VISTARIL) 25 mg capsule Take 25 mg by mouth three times daily as needed. celecoxib (CELEBREX) 100 mg capsule Take 100 mg by mouth twice daily. Buprenorphine-nalOXone (SUBOXONE) 8-2 mg film Dissolve 1 Film under the tongue twice daily. celecoxib (CELEBREX) 200 mg capsule Take 1 capsule by mouth once daily. (Patient not taking: Reported on 12/12/2017 ) methylPREDNISolone (MEDROL, EKATERINA,) 4 mg Dose-Pack TAKE 1 PACK DIRECTED No current facility-administered medications for this visit. PAST MEDICAL HISTORY Diagnosis Date - Knee pain - Pain management Dr. Bubba valdez suboxone - Substance abuse (HCC) PAST SURGICAL HISTORY Procedure Laterality Date - PAST SURGICAL HISTORY OF 2009 L knee ACL and Menicus tear No family history on file. Social History: Alcohol Use: No Tobacco Use: 1 packs/day Types: Cigarettes Drug Use: No (past opiate addiction) Employer And Job Title: None on file Years Of Education Completed: Not specified Marital Status: Unknown REVIEW OF SYSTEMS: Constitutional: (-) Fever (-) Night Sweats (-) Weight Gain (-) Weight Loss (-) Fatigue Cardiovascular: (-) Chest Pain (-) Palpitations (-) Lightheadedness (-) Swelling of Ankles (-) Hx Heart Surgery Respiratory: (-) Shortness of Breath (-) Cough (-) Wheezing (-) Snoring Gastrointestinal: (-) Incontinence (-) Abdominal Pain (-) Diarrhea (-) Constipation (-) Nausea/Vomiting (-) Heart Burn Endocrine: (-) Thyroid Disorder (-) Diabetes Hematologic: (-) Prolonged Bleeding (-) Easy Bruising Genitourinary: (-) Incontinence (-) Frequency (-) Urinary Urgency Skin: (-) Rashes (-) Itching (-) Other Lesions Neurologic: (-) Headache (-) Double Vision (-) Confusion (-) Paralysis (-) Vertigo (-) Syncope Psychiatric: (-) Depression (-) Anxiety (-) Delusions (-) Hallucinations (-) Suicidal Thoughts Rosy Vaca MA OARRS Report reviewed: Yes Narcotic Agreement reviewed and signed?: N/A Baseline Urine Toxicology obtained: N/A Urine Panel: No results found for: UQCANN, UQBNZL, USG6YHO, UQAMPH, UQMAMP, UQBUPRE, UQNORBUP, UQMTHD, UQEDDP, UQTRAM, UQDTRM, UQFNTL, UQNFTL, UQCODE, UQMORP, UQDCDN, UQHCOD, UQOXYC, UQHMOR, UQOXYM, UQCREA, UQPH, UQSPGR, UQOXID, UQSPQ The pain panel was N/A I have reviewed, confirmed and edited the preliminary information with the patient: OBJECTIVE: PHYSICAL EXAMINATION: Pulse 78 Wt 263 lb (119.3kg) SpO2 98% Performed in conjunction with observation. The patient was alert and oriented x3. The patient was in no acute distress. Lungs: Clear to auscultation. CVR: Regular Rate. Neck: Supple. The range of motion was intact. Spurling's: neg. Back: Range of motion of the trunk was intact. SLR: negative Facet Loading: negative with axial loading and extension. SI joint: neg. PSIS tenderness. Neg. Sacral thrust. Neg. Mustapha's sign. Extremities: Diffuse bilateral knee pain. Motor: 5/5 Sensory: intact. Gait: antalgic. Medical record and diagnostic tests reviewed for today's visit: The [facility] EMR was reviewed during the visit IMAGING STUDIES: No new imaging studies were reviewed during this office visit. ASSESSMENT: Case of a 42 year old who presents with bilateral knee pain due to trauma and knee derangement.. (M25.561, M25.562, G89.29) Chronic pain of both knees (primary encounter diagnosis) (M17.2) Post-traumatic osteoarthritis of both knees (G57.91, G57.92) Neuropathic pain of both legs PLAN: 1. Has had history of substance abuse. Currently on Suboxone. 2. No interventional procedures indicated. He has been approved for knee injection. 3. Signed Prescriptions Disp Refills gabapentin (NEURONTIN) 300 mg capsule 60 capsule 1 Sig: Take 1 capsule by mouth twice daily for 30 days. 4. Counseled patient regarding the importance of activity modification and exercise. 5. Follow up:3 months The above plan and management options were discussed with patient. The patient is in agreement with the above and verbalized understanding. I have discussed and confirmed the above treatment plan with the patient. and I have reviewed the nurses notes and I am aware of the family/social history. Adam Jones MD March 08, 2018 cc: SELF Phone: N/A Fax: Results of consultation to be transmitted via electronic medical record for those providers who practice within [facility] or with access to [employer] via MD Connect, or via letter. CNOV Observed: 03/08/2018 Status: COMPLETED Source: [place] 12:30 PM [facility] REPOSITORY Office Visit (PNMDNA) FRANSISCO CANTOR ([id number]) 1975 M Date Time Provider Department 03/08/18 12:30 PM ADAM JONES PNPATTY During your visit today, we recorded the following information about you: Pulse Weight 78/minute 119.3 kg Adam Jones MD 03/08/2018 3:35 PM Signed [facility] Pain Management Department Date: March 08, 2018 - 12:52 PM Fransisco Cantor is self referred. Chief Complaint: lower back pain, right lower extremity pain, and bilateral knee pain SUBJECTIVE: Fransisco Cantor, is a 42 year old year old with no significant past medical history, who presents with lower back pain, right lower extremity pain and bilateral knee pain. The pain started 8 years ago, following fall into a pool and damaging the knees. The patient states that the pain is persistent. His pain is located in the bilateral and middle lumbar region and radiates bilaterally down the right leg and knee. The pain is described as aching. The pain intensity is rated 6. The pain is exacerbated by activity, standing, walking and lying in bed and relieved by taking a hot bath. Symptoms interfere with physical activity and work. Obtained by Rosy Vaca MA by interview I have reviewed, confirmed and edited the preliminary information with the patient: In addition the patient reports no additional concerns. Litigation: No. Prior pain treatment has included no specific interventions. He had relief from the following interventions: None. ALLERGIES No Known Allergies Current Medications: Pain medications reviewed and reconciled in the medication list: Yes. Current Outpatient Prescriptions: hydrOXYzine pamoate (VISTARIL) 25 mg capsule Take 25 mg by mouth three times daily as needed. celecoxib (CELEBREX) 100 mg capsule Take 100 mg by mouth twice daily. Buprenorphine-nalOXone (SUBOXONE) 8-2 mg film Dissolve 1 Film under the tongue twice daily. celecoxib (CELEBREX) 200 mg capsule Take 1 capsule by mouth once daily. (Patient not taking: Reported on 12/12/2017 ) methylPREDNISolone (MEDROL, EKATERINA,) 4 mg Dose-Pack TAKE 1 PACK DIRECTED No current facility-administered medications for this visit. PAST MEDICAL HISTORY Diagnosis Date - Knee pain - Pain management Dr. Bubba rios Coby valdez suboxone - Substance abuse (HCC) PAST SURGICAL HISTORY Procedure Laterality Date - PAST SURGICAL HISTORY OF 2010 L knee ACL and Menicus tear No family history on file. Social History: Alcohol Use: No Tobacco Use: 1 packs/day Types: Cigarettes Drug Use: No (past opiate addiction) Employer And Job Title: None on file Years Of Education Completed: Not specified Marital Status: Unknown REVIEW OF SYSTEMS: Constitutional: (-) Fever (-) Night Sweats (-) Weight Gain (-) Weight Loss (-) Fatigue Cardiovascular: (-) Chest Pain (-) Palpitations (-) Lightheadedness (-) Swelling of Ankles (-) Hx Heart Surgery Respiratory: (-) Shortness of Breath (-) Cough (-) Wheezing (-) Snoring Gastrointestinal: (-) Incontinence (-) Abdominal Pain (-) Diarrhea (-) Constipation (-) Nausea/Vomiting (-) Heart Burn Endocrine: (-) Thyroid Disorder (-) Diabetes Hematologic: (-) Prolonged Bleeding (-) Easy Bruising Genitourinary: (-) Incontinence (-) Frequency (-) Urinary Urgency Skin: (-) Rashes (-) Itching (-) Other Lesions Neurologic: (-) Headache (-) Double Vision (-) Confusion (-) Paralysis (-) Vertigo (-) Syncope Psychiatric: (-) Depression (-) Anxiety (-) Delusions (-) Hallucinations (-) Suicidal Thoughts Rosy Vaca MA OARRS Report reviewed: Yes Narcotic Agreement reviewed and signed?: N/A Baseline Urine Toxicology obtained: N/A Urine Panel: No results found for: UQCANN, UQBNZL, NLV8FUY, UQAMPH, UQMAMP, UQBUPRE, UQNORBUP, UQMTHD, UQEDDP, UQTRAM, UQDTRM, UQFNTL, UQNFTL, UQCODE, UQMORP, UQDCDN, UQHCOD, UQOXYC, UQHMOR, UQOXYM, UQCREA, UQPH, UQSPGR, UQOXID, UQSPQ The pain panel was N/A I have reviewed, confirmed and edited the preliminary information with the patient: OBJECTIVE: PHYSICAL EXAMINATION: Pulse 78 Wt 263 lb (119.3kg) SpO2 98% Performed in conjunction with observation. The patient was alert and oriented x3. The patient was in no acute distress. Lungs: Clear to auscultation. CVR: Regular Rate. Neck: Supple. The range of motion was intact. Spurling's: neg. Back: Range of motion of the trunk was intact. SLR: negative Facet Loading: negative with axial loading and extension. SI joint: neg. PSIS tenderness. Neg. Sacral thrust. Neg. Mustapha's sign. Extremities: Diffuse bilateral knee pain. Motor: 5/5 Sensory: intact. Gait: antalgic. Medical record and diagnostic tests reviewed for today's visit: The [facility] EMR was reviewed during the visit IMAGING STUDIES: No new imaging studies were reviewed during this office visit. ASSESSMENT: Case of a 42 year old who presents with bilateral knee pain due to trauma and knee derangement.. (M25.561, M25.562, G89.29) Chronic pain of both knees (primary encounter diagnosis) (M17.2) Post-traumatic osteoarthritis of both knees (G57.91, G57.92) Neuropathic pain of both legs PLAN: 1. Has had history of substance abuse. Currently on Suboxone. 2. No interventional procedures indicated. He has been approved for knee injection. 3. Signed Prescriptions Disp Refills gabapentin (NEURONTIN) 300 mg capsule 60 capsule 1 Sig: Take 1 capsule by mouth twice daily for 30 days. 4. Counseled patient regarding the importance of activity modification and exercise. 5. Follow up:3 months The above plan and management options were discussed with patient. The patient is in agreement with the above and verbalized understanding. I have discussed and confirmed the above treatment plan with the patient. and I have reviewed the nurses notes and I am aware of the family/social history. Adam Jones MD March 08, 2018 cc: SELF Phone: N/A Fax: Results of consultation to be transmitted via electronic medical record for those providers who practice within [facility] or with access to [employer] via MD Connect, or via letter. Referring Provider: SELF [[id number]] Allergies As of Date: 03/08/2018 (No Known Allergies) Date Reviewed: 03/08/2018 Reviewed by: Rosy Vaca MA - Fully Assessed Reason for Visit: New Patient [172] Low Back Pain [126] Right Leg Pain [Other] Bilateral Knee Pain [1210] Primary Visit Diagnosis:Chronic pain of both knees [M25.561, M25.562, G89.29] Other Visit Diagnoses:Post-traumatic osteoarthritis of both knees [M17.2] Neuropathic pain of both legs [G57.91, G57.92] Order(s):gabapentin (NEURONTIN) 300 mg capsuleTake 1 capsule by mouth twice daily for 30 days.Disp: 60 capsuleRfl: 1 Prescriptions as of 03/08/2018 Sig: HYDROXYZINE PAMOATE 25 MG CAP* Take 25 mg by mouth three travis* CELECOXIB 100 MG CAPSULE Take 100 mg by mouth twice da* BUPRENORPHINE 8 MG-NALOXONE 2* Dissolve 1 Film under the ton* GABAPENTIN 300 MG CAPSULE Take 1 capsule by mouth twice* CELECOXIB 200 MG CAPSULE Take 1 capsule by mouth once * Patient not taking: Reported on 12/12/2017 METHYLPREDNISOLONE 4 MG TABLE* TAKE 1 PACK DIRECTED Problem List As Of Date 03/08/2018 Noted Resolved Post-traumatic osteoarthritis of both knees [M1*INVALID FOR* Chronic pain of both knees [M25.561, M25.562, G*INVALID FOR* Neuropathic pain of both legs [G57.91, G57.92] INVALID FOR* Prescriptions ordered this encounter Disp Refills Start End GABAPENTIN 300 MG CAPSULE 60 c* 1 03/08/2018 04/07/2018 Route: ORAL Sig: Take 1 capsule by mouth twice daily for 30 days. Encounter Status:Closed by ADAM JONES MD on 03/08/18 PROGRESS Observed: 03/04/2018 Status: COMPLETED Source: [place] 9:58 AM [facility] REPOSITORY HNO ID: [id number] Author: Shalini Anderson ([place]) Service: (none) Author Type: Physician Percussion Tuner Type: Progress Notes Filed: 03/05/2018 8:40 AM Note Text: Shalini Anderson PA-C Department of Orthopaedics Orth[facility] [address] [place] [address] Dept: [phone] Dept March 04, 2018 CHIEF COMPLAINT: Recheck (Bilateral knee pain- asking about gel injections) Mr. Fransisco Cantor is a 42 year old male he presents with bilateral knee pain for the past several years. Right knee is worse than the left, pain today is a 6 out of 10 aching that is worse with activity. The patient was seeing Dr. Brown for the past few years, the patient has received multiple corticosteroid injections in the past as well as long-term Celebrex. The patient has bilateral knee car unloader helper braces which she does not wear as they do not fit properly. I saw the patient in November and we submitted for Visco supplementation, we were able to get that approved but due to not have the particular type of Visco supplementation in stock. We also tried to get the patient to see our [employer] international representative to see if he will require a larger car unloader helper brace. 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 ASSESSMENT: M17.2 Post-traumatic osteoarthritis of both knees (primary encounter diagnosis) M25.561, M25.562, G89.29 Chronic pain of both knees PLAN: We will have the patient return for bilateral knee Visco supplementation once we have the durolane in stock. I will recheck once again to our [employer] international representative to see if they would be willing to assess his car unloader helper braces and make sure that they are the proper size. Mr. Fransisco Cantor was advised as to contrast therapies and/or to take analgesics/anti-inflammatories as needed and all contraindications were reviewed. OBJECTIVE: Mr. Fransisco Cantor is a pleasant 42 year old in no apparent distress. Gen:Wt 257 lb (116.6kg) nl development, non obese, no deformities ENT: Normocephalic, normal hearing, moist mucosa CV: Pulses:DP/PT= 2+ and symmetric, capillary refill < 2 secs, no peripheral edema/varicosities Skin: no rash, bruising or lesions. Good turgor. Psych: cooperative and appropriate, alert and oriented x 3, good mood and affect. Musculoskeletal: KNEE EXAM: Left: Alignment: Valgus deformity, Correctable Range of motion is lacking a few degrees secondary to tight hamstrings degrees in extension and 130 degrees of flexion. Extension Lag: < 10 degrees Pain with ROM: Yes and + McMurrary's Effusion: Mild Tender to the palpation of Lateral femoral condyle and Lateral joint line Pain with patellar compression: No Stability: Anterior/Posterior stable and Varus/Valgus stable Hip Exam: flexion to 100+ degrees, full extension, internal/external rotation adequate and no pain with log roll Neurovascular Status: Sensation Intact, Moves foot and ankle up AND down and 2+ dorsalis pedis Right: Alignment: Varus deformity, Correctable Range of motion is lacking a few degrees secondary to tight hamstrings degrees in extension and 130 degrees of flexion. Extension Lag: < 10 degrees Pain with ROM: Yes and + McMurrary's Effusion: Mild Tender to the palpation of Medial femoral condyle and Medial joint line Pain with patellar compression: No Stability: Anterior/Posterior stable and Varus/Valgus stable Hip Exam: flexion to 100+ degrees, full extension, internal/external rotation adequate and no pain with log roll Neurovascular Status: Sensation Intact, Moves foot and ankle up AND down and 2+ dorsalis pedis Imaging: IMPRESSION: Tricompartmental degenerative changes of the right knee, most pronounced in the medial compartment. No acute osseous abnormality. Right knee suprapatellar joint effusion. Dragline Oiler: RICHARD ? Transcribe Date/Time: Dec 12 2017 ?2:52P Dictated by : MILAGROS ADAM MD This examination was interpreted and the report reviewed and electronically signed by: MILAGROS ADAM MD on Dec 12 2017 ?2:54PM ?EST Results-Findings * * *Final Report* * * DATE OF EXAM: Dec 12 2017 ?2:10PM ? WRX ? [id number] ?- ?XR KNEE 4V AP/PA BOTH+LAT/TIM RT ?/ PROCEDURE REASON: Pain, unspecified ?? ? * * * * Physician Interpretation * * * * ?EXAMINATION: ?XR KNEE 4V AP/PA BOTH+LAT/TIM RT CLINICAL HISTORY: ? right medial knee pain Pain, unspecified Technique: ? XR KNEE 4V AP/PA BOTH+LAT/TIM RT -- RIGHT knee with 4 views on 4 images Comparison: 06/09/2016 RESULT: No acute fracture or dislocation is identified. There is marked narrowing of the medial knee compartment with subchondral sclerosis in medial tibial plateau. Tricompartmental degenerative spurring. A suprapatellar joint effusion is also noted. Prior left knee ACL repair. Supporting Subjective Information Below: Past Surgical History: PAST SURGICAL HISTORY Procedure Laterality Date - PAST SURGICAL HISTORY OF 2009 L knee ACL and Menicus tear Medications: Current Outpatient Prescriptions: hydrOXYzine pamoate (VISTARIL) 25 mg capsule Take 25 mg by mouth three times daily as needed. celecoxib (CELEBREX) 100 mg capsule Take 100 mg by mouth twice daily. Buprenorphine-nalOXone (SUBOXONE) 8-2 mg film Dissolve 1 Film under the tongue twice daily. celecoxib (CELEBREX) 200 mg capsule Take 1 capsule by mouth once daily. (Patient not taking: Reported on 12/12/2017 ) methylPREDNISolone (MEDROL, EKATERINA,) 4 mg Dose-Pack TAKE 1 PACK DIRECTED No current facility-administered medications for this visit. Allergies: Patient has no known allergies. ROS: General (negative for fatigue, malaise, weight loss/gain) HEENT (negative for headache, earache, recent vision changes, sinus pain, sore throat) Respiratory (no recent shortness of breath, hemoptysis) CV (negative for chest tightness, palpitations) Musculoskeletal (see HPI) Psych (no depression, anxiety) This note was partially generated using [employer] voice recognition system, and there may be some incorrect words, spellings, and punctuation that were not noted in checking the note before saving. Shalini Anderson PA-C PROGRESS Observed: 03/04/2018 Status: COMPLETED Source: [place] 9:13 AM [facility] REPOSIT[facility] O ID: [id number] Author: Shruti Acosta Service: (none) Author Type: (none) Type: Progress Notes Filed: 03/05/2018 8:40 AM Note Text: AMB ROOMING INTAKE FLOWSHEET DATA Risk Screening Do you have concerns about personal safety or safety in the home?: No Pain Pain Score: 6/10 Pain Location: Other: See Comment (both knees) Description: Sharp, Aching, Shooting, Sore Duration Amount of Time: 2 Duration Units: Years Frequency: Continuous Intervention: Other: See comment (celebrex) Comments: has appointment with pain management to discuss a different pain medication. Patient presents with: Recheck: Bilateral knee pain- asking about gel injections Patient is right handed. Shruti Acosta CNOV Observed: 03/04/2018 Status: COMPLETED Source: [place] 9:10 AM [facility] REPOSITORY Office Visit (ORTHWS) FRANSISCO CANTOR ([id number]) 1975 M Date Time Provider Department 03/04/18 9:10 AM SHALINI ANDERSON (PA) During your visit today, we recorded the following information about you: Weight 116.6 kg Shruti Acosta 03/05/2018 8:40 AM Signed [facility] ROOMING INTAKE FLOWSHEET DATA Risk Screening Do you have concerns about personal safety or safety in the home?: No Pain Pain Score: 6/10 Pain Location: Other: See Comment (both knees) Description: Sharp, Aching, Shooting, Sore Duration Amount of Time: 2 Duration Units: Years Frequency: Continuous Intervention: Other: See comment (celebrex) Comments: has appointment with pain management to discuss a different pain medication. Patient presents with: Recheck: Bilateral knee pain- asking about gel injections Patient is right handed. Shruti Anderson PA-C 03/05/2018 8:40 AM Signed Shalini Anderson PA-C Department of Orthopaedics Orthopaedics [address] [place] [id number] Dept: [phone] Dept March 04, 2018 CHIEF COMPLAINT: Recheck (Bilateral knee pain- asking about gel injections) Mr. Fransisco Cantor is a 42 year old male he presents with bilateral knee pain for the past several years. Right knee is worse than the left, pain today is a 6 out of 10 aching that is worse with activity. The patient was seeing Dr. Brown for the past few years, the patient has received multiple corticosteroid injections in the past as well as long-term Celebrex. The patient has bilateral knee car unloader helper braces which she does not wear as they do not fit properly. I saw the patient in November and we submitted for Visco supplementation, we were able to get that approved but due to not have the particular type of Visco supplementation in stock. We also tried to get the patient to see our [employer] international representative to see if he will require a larger car unloader helper brace. 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 ASSESSMENT: M17.2 Post-traumatic osteoarthritis of both knees (primary encounter diagnosis) M25.561, M25.562, G89.29 Chronic pain of both knees PLAN: We will have the patient return for bilateral knee Visco supplementation once we have the durolane in stock. I will recheck once again to our [employer] representative to see if they would be willing to assess his car unloader helper braces and make sure that they are the proper size. Mr. Fransisco Cantor was advised as to contrast therapies and/or to take analgesics/anti-inflammatories as needed and all contraindications were reviewed. OBJECTIVE: Mr. Fransisco Cantor is a pleasant 42 year old in no apparent distress. Gen:Wt 257 lb (116.6kg) nl development, non obese, no deformities ENT: Normocephalic, normal hearing, moist mucosa CV: Pulses:DP/PT= 2+ and symmetric, capillary refill < 2 secs, no peripheral edema/varicosities Skin: no rash, bruising or lesions. Good turgor. Psych: cooperative and appropriate, alert and oriented x 3, good mood and affect. Musculoskeletal: KNEE EXAM: Left: Alignment: Valgus deformity, Correctable Range of motion is lacking a few degrees secondary to tight hamstrings degrees in extension and 130 degrees of flexion. Extension Lag: < 10 degrees Pain with ROM: Yes and + McMurrary's Effusion: Mild Tender to the palpation of Lateral femoral condyle and Lateral joint line Pain with patellar compression: No Stability: Anterior/Posterior stable and Varus/Valgus stable Hip Exam: flexion to 100+ degrees, full extension, internal/external rotation adequate and no pain with log roll Neurovascular Status: Sensation Intact, Moves foot and ankle up AND down and 2+ dorsalis pedis Right: Alignment: Varus deformity, Correctable Range of motion is lacking a few degrees secondary to tight hamstrings degrees in extension and 130 degrees of flexion. Extension Lag: < 10 degrees Pain with ROM: Yes and + McMurrary's Effusion: Mild Tender to the palpation of Medial femoral condyle and Medial joint line Pain with patellar compression: No Stability: Anterior/Posterior stable and Varus/Valgus stable Hip Exam: flexion to 100+ degrees, full extension, internal/external rotation adequate and no pain with log roll Neurovascular Status: Sensation Intact, Moves foot and ankle up AND down and 2+ dorsalis pedis Imaging: IMPRESSION: Tricompartmental degenerative changes of the right knee, most pronounced in the medial compartment. No acute osseous abnormality. Right knee suprapatellar joint effusion. Dragline Oiler: PSCB ? Transcribe Date/Time: Dec 12 2017 ?2:52P Dictated by : MILAGROS ADAM MD This examination was interpreted and the report reviewed and electronically signed by: MILAGROS ADAM MD on Dec 12 2017 ?2:54PM ?EST Results-Findings * * *Final Report* * * DATE OF EXAM: Dec 12 2017 ?2:10PM ? WRX ? 5203 ?- ?XR KNEE 4V AP/PA BOTH+LAT/TIM RT ?/ PROCEDURE REASON: Pain, unspecified ?? ? * * * * Physician Interpretation * * * * ?EXAMINATION: ?XR KNEE 4V AP/PA BOTH+LAT/TIM RT CLINICAL HISTORY: ? right medial knee pain Pain, unspecified Technique: ? XR KNEE 4V AP/PA BOTH+LAT/TIM RT -- RIGHT knee with 4 views on 4 images Comparison: 06/09/2016 RESULT: No acute fracture or dislocation is identified. There is marked narrowing of the medial knee compartment with subchondral sclerosis in medial tibial plateau. Tricompartmental degenerative spurring. A suprapatellar joint effusion is also noted. Prior left knee ACL repair. Supporting Subjective Information Below: Past Surgical History: PAST SURGICAL HISTORY Procedure Laterality Date - PAST SURGICAL HISTORY OF 2009 L knee ACL and Menicus tear Medications: Current Outpatient Prescriptions: hydrOXYzine pamoate (VISTARIL) 25 mg capsule Take 25 mg by mouth three times daily as needed. celecoxib (CELEBREX) 100 mg capsule Take 100 mg by mouth twice daily. Buprenorphine-nalOXone (SUBOXONE) 8-2 mg film Dissolve 1 Film under the tongue twice daily. celecoxib (CELEBREX) 200 mg capsule Take 1 capsule by mouth once daily. (Patient not taking: Reported on 12/12/2017 ) methylPREDNISolone (MEDROL, EKATERINA,) 4 mg Dose-Pack TAKE 1 PACK DIRECTED No current facility-administered medications for this visit. Allergies: Patient has no known allergies. ROS: General (negative for fatigue, malaise, weight loss/gain) HEENT (negative for headache, earache, recent vision changes, sinus pain, sore throat) Respiratory (no recent shortness of breath, hemoptysis) CV (negative for chest tightness, palpitations) Musculoskeletal (see HPI) Psych (no depression, anxiety) This note was partially generated using FiberLight voice recognition system, and there may be some incorrect words, spellings, and punctuation that were not noted in checking the note before saving. Shalini Anderson PA-C Referring Provider: SHALINI ANDERSON) [[id number]] Allergies As of Date: 03/04/2018 (No Known Allergies) Date Reviewed: 03/04/2018 Reviewed by: Shalini Anderson (Pa) - Fully Assessed Reason for Visit: Recheck [92] Cmt: Bilateral knee pain- asking about gel injections Primary Visit Diagnosis:Post-traumatic osteoarthritis of both knees [M17.2] Other Visit Diagnosis:Chronic pain of both knees [M25.561, M25.562, G89.29] Prescriptions as of 03/04/2018 Sig: HYDROXYZINE PAMOATE 25 MG CAP* Take 25 mg by mouth three travis* CELECOXIB 100 MG CAPSULE Take 100 mg by mouth twice da* BUPRENORPHINE 8 MG-NALOXONE 2* Dissolve 1 Film under the ton* CELECOXIB 200 MG CAPSULE Take 1 capsule by mouth once * Patient not taking: Reported on 12/12/2017 METHYLPREDNISOLONE 4 MG TABLE* TAKE 1 PACK DIRECTED Problem List As Of Date 03/04/2018 Noted Resolved Post-traumatic osteoarthritis of both knees [M1*INVALID FOR* Chronic pain of both knees [M25.561, M25.562, G*INVALID FOR* Encounter Status:Closed by SHALINI ANDERSON PA-C on 03/05/18 CNCO Observed: 02/04/2018 Status: COMPLETED Source: [place] [id number]:00 AM [facility] REPOSITORY Letter Text Fransisco Cantor Date of - 1975 [facility] [id number] Shalini Anderson PA-C Department of Orthopaedic Surgery [address] [address] Office: [phone] 02/04/2018 RE: Fransisco Cantor [id number] To Whom It May Concern: I saw Fransisco Cantor in the Department of Orthopaedic Surgery at [facility] for his bilateral knee arthritis. Based on physical examination and medical assessment, I feel Fransisco Cantor will benefit from bilateral knee viscosupplementation and writing to ask that you approve the generic Durolane injection. The patient has tried numerous corticosteroid injections that he was receiving from Dr. Brown in [place]. The injections were initially helpful for about 3 months but are no longer of benefit. He takes Celebrex 100mg twice daily and has for a few years, has tried switching to meloxicam but did not found it to be as beneficial. The patient has worn bilateral knee car unloader helper braces daily for the past year, the braces have recently been adjusted by our [employer] representative to make sure they are still fitting appropriately. The patient's body mass index is below 30, and he would likely not benefit significantly from weight loss. Please approve Durolane injections for bilateral knees, or any other generic viscous supplementation that may be part of your formulary. If you have any questions or require additional information, please do not hesitate to contact my office. Sincerely, KAVEH Sarkar Observed: 01/23/2018 Status: COMPLETED Source: [place] 12:00 AM [facility] REPOSITORY Telephone (ORMDNA) FRANSISCO CANTOR ([id number]) 1975 M Date Time Provider Department 01/23/18 VESHALINI BOJORQUEZ (PA)MAHELEN During your visit today, we recorded the following information about you: Liliana Merritt Bonnie 01/23/2018 11:34 AM Signed Patient called into office and expressed that he received denial from his insurance carrier for injection. Patients insurance company is requesting a generic form. Patient can be reached at [phone] . Please advise and thank you. Liliana René Nater Shalini Anderson PA-C 01/23/2018 12:51 PM Signed Peer to peer is scheduled for tomorrow. Shalini Anderson PA-C 01/28/2018 12:19 PM Signed Never received phone call at [place] office to complete the peer to peer. Can I call them or can we reschedule peer to peer? Tiffany Wheeler Ma 02/05/2018 11:08 AM Signed Appeal letter has been completed and faxed to insurance company on 02/04/2018. This encounter will be closed. Please refer to original phone encounter. Allergies As of Date: 01/23/2018 (No Known Allergies) Date Reviewed: 12/12/2017 Reviewed by: Shalini Anderson (Pa) - Fully Assessed Reason for Visit: Question [1327] Prescriptions as of 01/23/2018 Sig: CELECOXIB 100 MG CAPSULE Take 100 mg by mouth twice da* BUPRENORPHINE 8 MG-NALOXONE 2* Dissolve 1 Film under the ton* CELECOXIB 200 MG CAPSULE Take 1 capsule by mouth once * Patient not taking: Reported on 12/12/2017 METHYLPREDNISOLONE 4 MG TABLE* TAKE 1 PACK DIRECTED Problem List As Of Date 01/23/2018 Noted Resolved Post-traumatic osteoarthritis of both knees [M1*INVALID FOR* Chronic pain of both knees [M25.561, M25.562, G*INVALID FOR* Encounter Status:Closed by SHALINI ANDERSON PA-C on 01/23/18 PROGRESS Observed: 12/12/2017 Status: COMPLETED Source: [place] 3:27 PM [facility] REPOSITORY O ID: [id number] Author: Shalini Anderson (Pa) Service: (none) Author Type: Physician Percussion Tuner Type: Progress Notes Filed: 12/13/2017 8:23 AM Note Text: Shalini Anderson PA-C Department of Orthopaedics Orthopaedics [address] [place] [address] Dept: [phone] Dept December 12, 2017 CHIEF COMPLAINT: New problem (right knee pain, xray, last seen by BP 02-08-16, REF: Rheumatology. ) HPI: Mr. Fransisco Cantor is a 42 year old male. He presents with bilateral knee pain for the last several years. Pain is worse in the right than the left knee. Today is a 5 out of 10 dull, sharp, aching that is worse with overactivity. The patient was being seen by Dr. Brown who is administering corticosteroid injections every 3 months. The patient notes that he was getting only a few weeks of relief from the cortisone injections. The patient was planning to have a right total knee replacement with Dr. Brown but reconsidered and no longer wishes to pursue surgical intervention. The patient has been taking Celebrex 100 mg twice a day for the past several years, he also takes Suboxone for treatment opiate addiction. He is also been fitted with bilateral car unloader helper braces which he does not wear because they cause irritation to his skin and jones splints. 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 The patient is status post left knee arthroscopic meniscectomy with anterior cruciate ligament repair. He is interested in obtaining this goes supplementation injections, injections were previously denied by his insurance company. ASSESSMENT: M17.2 Post-traumatic osteoarthritis of both knees (primary encounter diagnosis) M25.561, M25.562, G89.29 Chronic pain of both knees M25.461, M25.462 Bilateral knee effusions PLAN: We will resubmit prior authorization for bilateral knee viscose supplementation. We will contact [employer] to see if they can assess the fit of his car unloader helper braces and make suggestions to improve their fit/comfort. Mr. Fransisco Cantor was advised as to contrast therapies and/or to take analgesics/anti-inflammatories as needed and all contraindications were reviewed. OBJECTIVE: Mr. Fransisco Cantor is a pleasant 42 year old in no apparent distress. Gen:There were no vitals taken for this visit. nl development, non obese, no deformities ENT: Normocephalic, normal hearing, moist mucosa CV: Pulses:DP/PT= 2+ and symmetric, capillary refill < 2 secs, no peripheral edema/varicosities Skin: no rash, bruising or lesions. Good turgor. Psych: cooperative and appropriate, alert and oriented x 3, good mood and affect. Musculoskeletal: KNEE EXAM: Left: Alignment: Valgus deformity, Correctable Range of motion is lacking a few degrees secondary to tight hamstrings degrees in extension and 130 degrees of flexion. Extension Lag: < 10 degrees Pain with ROM: Yes and + McMurrary's Effusion: Slight Tender to the palpation of Lateral femoral condyle and Lateral joint line Pain with patellar compression: No Stability: Anterior/Posterior stable and Varus/Valgus stable Hip Exam: flexion to 100+ degrees, full extension, internal/external rotation adequate and no pain with log roll Neurovascular Status: Sensation Intact, Moves foot and ankle up AND down and 2+ dorsalis pedis Right: Alignment: Valgus deformity, Correctable Range of motion is lacking a few degrees secondary to tight hamstrings degrees in extension and 130 degrees of flexion. Extension Lag: < 10 degrees Pain with ROM: Yes and + McMurrary's Effusion: Mild Tender to the palpation of Posterior Knee, Medial femoral condyle and Medial joint line Pain with patellar compression: No Stability: Anterior/Posterior stable and Varus/Valgus stable Hip Exam: flexion to 100+ degrees, full extension, internal/external rotation adequate and no pain with log roll Neurovascular Status: Sensation Intact, Moves foot and ankle up AND down and 2+ dorsalis pedis IMAGING: IMPRESSION: Tricompartmental degenerative changes of the right knee, most pronounced in the medial compartment. No acute osseous abnormality. Right knee suprapatellar joint effusion. Dragline Oiler: RICHARD ? Transcribe Date/Time: Dec 12 2017 ?2:52P Dictated by : MILAGROS ADAM MD This examination was interpreted and the report reviewed and electronically signed by: MILAGROS ADAM MD on Dec 12 2017 ?2:54PM ?EST Results-Findings * * *Final Report* * * DATE OF EXAM: Dec 12 2017 ?2:10PM ? WRX ? 5203 ?- ?XR KNEE 4V AP/PA BOTH+LAT/TIM RT ?/ PROCEDURE REASON: Pain, unspecified ?? ? * * * * Physician Interpretation * * * * ?EXAMINATION: ?XR KNEE 4V AP/PA BOTH+LAT/TIM RT CLINICAL HISTORY: ? right medial knee pain Pain, unspecified Technique: ? XR KNEE 4V AP/PA BOTH+LAT/TIM RT -- RIGHT knee with 4 views on 4 images Comparison: 06/09/2016 RESULT: No acute fracture or dislocation is identified. There is marked narrowing of the medial knee compartment with subchondral sclerosis in medial tibial plateau. Tricompartmental degenerative spurring. A suprapatellar joint effusion is also noted. Prior left knee ACL repair. MRI right knee 09/05/16 Degenerative tearing of the medial meniscus with medial extrusion of the meniscus. There is subchondral marrow edema as well as mild to moderate osteo-arthritis of the medial knee compartment. Normal lateral meniscus with a mild osteophytic spur formation in the lateral compartment. Normal patella femoral articulation. MCL, PCL and anterior cruciate ligament are intact, normal quadriceps and patellar tendon. Normal office fat pad. Mild to moderate joint effusion. Supporting Subjective Information Below: Past Medical History: PAST MEDICAL HISTORY Diagnosis Date - Knee pain - Pain management Dr. Mac in [facility] suboxone - Substance abuse (HCC) Past Surgical History: PAST SURGICAL HISTORY Procedure Laterality Date - PAST SURGICAL HISTORY OF 2009 L knee ACL and Menicus tear Family History: No family history on file. Social History:Social History Marital status: Unknown Spouse name: Years of education: Number of children: Social History Main Topics Smoking status: Current Every Day Smoker Packs/day: 1.00 Years: 0.00 Types: Cigarettes Smokeless tobacco: Never Used Alcohol use: No Drug use: No Comment: past opiate addiction Medications: Current Outpatient Prescriptions: celecoxib (CELEBREX) 100 mg capsule Take 100 mg by mouth twice daily. Buprenorphine-nalOXone (SUBOXONE) 8-2 mg film Dissolve 1 Film under the tongue twice daily. celecoxib (CELEBREX) 200 mg capsule Take 1 capsule by mouth once daily. (Patient not taking: Reported on 12/12/2017 ) methylPREDNISolone (MEDROL, EKATERINA,) 4 mg Dose-Pack TAKE 1 PACK DIRECTED No current facility-administered medications for this visit. Allergies: Patient has no known allergies. ROS: General (negative for fatigue, malaise, weight loss/gain) HEENT (negative for headache, earache, recent vision changes, sinus pain, sore throat) Respiratory (no recent shortness of breath, hemoptysis) CV (negative for chest tightness, palpitations) Musculoskeletal (see HPI) Psych (no depression, anxiety) This note was partially generated using FiberLight voice recognition system, and there may be some incorrect words, spellings, and punctuation that were not noted in checking the note before saving. Shalini Anderson PA-C PROGRESS Observed: 12/12/2017 Status: COMPLETED Source: [place] 2:35 PM [facility] REPOSITORY HNO ID: [id number] Author: Jennifer Romeo RN Service: (none) Author Type: (none) Type: Progress Notes Filed: 12/13/2017 8:23 AM Note Text: AMB ROOMING INTAKE FLOWSHEET DATA Risk Screening Do you have concerns about personal safety or safety in the home?: No Pain Pain Score: 5/10 Pain Location: Knee-Right Description: Aching, Dull, Sharp Duration Amount of Time: 9 Duration Units: Months Frequency: Intermittent Intervention: Medication Patient presents with: New problem: right knee pain, xray, last seen by BP 02-08-16, REF: Rheumatology. Pt.states he began having pain in right knee after repair of torn ACL in left knee. He has been painful for 9 months. He had been seeing Dr. brown before he left who has been draining knee and giving him steroid injections. His last injection was in June. He obtained relief for 1 month. He was told he needed a partial knee replacement. He brings MRI on CD. He is in pain management and takes suboxone along with Celebrex 100 mg twice daily. XR KNEE 4V AP/PA Observed: 12/12/2017 Status: F Source: [place] BOTH+LAT/TIM RT 2:10 PM [facility] REPOSITORY * * *Final Report* * * DATE OF EXAM: Dec 12 2017 2:10PM WRX 5203 - XR KNEE 4V AP/PA BOTH+LAT/TIM RT / PROCEDURE REASON: Pain, unspecified * * * * Physician Interpretation * * * * EXAMINATION: XR KNEE 4V AP/PA BOTH+LAT/TIM RT CLINICAL HISTORY: right medial knee pain Pain, unspecified Technique: XR KNEE 4V AP/PA BOTH+LAT/TIM RT -- RIGHT knee with 4 views on 4 images Comparison: 06/09/2016 RESULT: No acute fracture or dislocation is identified. There is marked narrowing of the medial knee compartment with subchondral sclerosis in medial tibial plateau. Tricompartmental degenerative spurring. A suprapatellar joint effusion is also noted. Prior left knee ACL repair. IMPRESSION: Tricompartmental degenerative changes of the right knee, most pronounced in the medial compartment. No acute osseous abnormality. Right knee suprapatellar joint effusion. Dragline Oiler: RICHARD Transcribe Date/Time: Dec 12 2017 2:52P Dictated by : MILAGROS ADAM MD This examination was interpreted and the report reviewed and electronically signed by: MILAGROS ADAM MD on Dec 12 2017 2:54PM EST [id number] Observed: 12/12/2017 Status: COMPLETED Source: [place] 2:10 PM [facility] REPOSITORY Office Visit (ORTHWS) MANUFACTURING ANALYST,FRANSISCO ([id number]) 1975 M Date Time Provider Department 12/12/17 2:10 PM SHALINI ANDERSON) ORTHWS During your visit today, we recorded the following information about you: Jennifer Romeo RN 12/13/2017 8:23 AM Signed AMB ROOMING INTAKE FLOWSHEET DATA Risk Screening Do you have concerns about personal safety or safety in the home?: No Pain Pain Score: 5/10 Pain Location: Knee-Right Description: Aching, Dull, Sharp Duration Amount of Time: 9 Duration Units: Months Frequency: Intermittent Intervention: Medication Patient presents with: New problem: right knee pain, xray, last seen by BP 02-08-16, REF: Rheumatology. Pt.states he began having pain in right knee after repair of torn ACL in left knee. He has been painful for 9 months. He had been seeing Dr. brown before he left who has been draining knee and giving him steroid injections. His last injection was in June. He obtained relief for 1 month. He was told he needed a partial knee replacement. He brings MRI on CD. He is in pain management and takes suboxone along with Celebrex 100 mg twice daily. Shalini Anderson PA-C 12/13/2017 8:23 AM Signed Shalini Anderson PA-C Department of Orthopaedics Orthopaedics [address] [place] [place] [address] Dept: [phone] Dept December 12, 2017 CHIEF COMPLAINT: New problem (right knee pain, xray, last seen by BP 02-08-16, REF: Rheumatology. ) HPI: Mr. Fransisco Cantor is a 42 year old male. He presents with bilateral knee pain for the last several years. Pain is worse in the right than the left knee. Today is a 5 out of 10 dull, sharp, aching that is worse with overactivity. The patient was being seen by Dr. Brown who is administering corticosteroid injections every 3 months. The patient notes that he was getting only a few weeks of relief from the cortisone injections. The patient was planning to have a right total knee replacement with Dr. Brown but reconsidered and no longer wishes to pursue surgical intervention. The patient has been taking Celebrex 100 mg twice a day for the past several years, he also takes Suboxone for treatment opiate addiction. He is also been fitted with bilateral car unloader helper braces which he does not wear because they cause irritation to his skin and jones splints. 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 The patient is status post left knee arthroscopic meniscectomy with anterior cruciate ligament repair. He is interested in obtaining this goes supplementation injections, injections were previously denied by his insurance company. ASSESSMENT: M17.2 Post-traumatic osteoarthritis of both knees (primary encounter diagnosis) M25.561, M25.562, G89.29 Chronic pain of both knees M25.461, M25.462 Bilateral knee effusions PLAN: We will resubmit prior authorization for bilateral knee viscose supplementation. We will contact [employer] to see if they can assess the fit of his car unloader helper braces and make suggestions to improve their fit/comfort. Mr. Fransisco Cantor was advised as to contrast therapies and/or to take analgesics/anti-inflammatories as needed and all contraindications were reviewed. OBJECTIVE: Mr. Fransisco Cantor is a pleasant 42 year old in no apparent distress. Gen:There were no vitals taken for this visit. nl development, non obese, no deformities ENT: Normocephalic, normal hearing, moist mucosa CV: Pulses:DP/PT= 2+ and symmetric, capillary refill < 2 secs, no peripheral edema/varicosities Skin: no rash, bruising or lesions. Good turgor. Psych: cooperative and appropriate, alert and oriented x 3, good mood and affect. Musculoskeletal: KNEE EXAM: Left: Alignment: Valgus deformity, Correctable Range of motion is lacking a few degrees secondary to tight hamstrings degrees in extension and 130 degrees of flexion. Extension Lag: < 10 degrees Pain with ROM: Yes and + McMurrary's Effusion: Slight Tender to the palpation of Lateral femoral condyle and Lateral joint line Pain with patellar compression: No Stability: Anterior/Posterior stable and Varus/Valgus stable Hip Exam: flexion to 100+ degrees, full extension, internal/external rotation adequate and no pain with log roll Neurovascular Status: Sensation Intact, Moves foot and ankle up AND down and 2+ dorsalis pedis Right: Alignment: Valgus deformity, Correctable Range of motion is lacking a few degrees secondary to tight hamstrings degrees in extension and 130 degrees of flexion. Extension Lag: < 10 degrees Pain with ROM: Yes and + McMurrary's Effusion: Mild Tender to the palpation of Posterior Knee, Medial femoral condyle and Medial joint line Pain with patellar compression: No Stability: Anterior/Posterior stable and Varus/Valgus stable Hip Exam: flexion to 100+ degrees, full extension, internal/external rotation adequate and no pain with log roll Neurovascular Status: Sensation Intact, Moves foot and ankle up AND down and 2+ dorsalis pedis IMAGING: IMPRESSION: Tricompartmental degenerative changes of the right knee, most pronounced in the medial compartment. No acute osseous abnormality. Right knee suprapatellar joint effusion. Dragline Oiler: RICHARD ? Transcribe Date/Time: Dec 12 2017 ?2:52P Dictated by : MILAGROS ADAM MD This examination was interpreted and the report reviewed and electronically signed by: MILAGROS ADAM MD on Dec 12 2017 ?2:54PM ?EST Results-Findings * * *Final Report* * * DATE OF EXAM: Dec 12 2017 ?2:10PM ? WRX ? 5203 ?- ?XR KNEE 4V AP/PA BOTH+LAT/TIM RT ?/ PROCEDURE REASON: Pain, unspecified ?? ? * * * * Physician Interpretation * * * * ?EXAMINATION: ?XR KNEE 4V AP/PA BOTH+LAT/ITM RT CLINICAL HISTORY: ? right medial knee pain Pain, unspecified Technique: ? XR KNEE 4V AP/PA BOTH+LAT/TIM RT -- RIGHT knee with 4 views on 4 images Comparison: 06/09/2016 RESULT: No acute fracture or dislocation is identified. There is marked narrowing of the medial knee compartment with subchondral sclerosis in medial tibial plateau. Tricompartmental degenerative spurring. A suprapatellar joint effusion is also noted. Prior left knee ACL repair. MRI right knee 09/05/16 Degenerative tearing of the medial meniscus with medial extrusion of the meniscus. There is subchondral marrow edema as well as mild to moderate osteo-arthritis of the medial knee compartment. Normal lateral meniscus with a mild osteophytic spur formation in the lateral compartment. Normal patella femoral articulation. MCL, PCL and anterior cruciate ligament are intact, normal quadriceps and patellar tendon. Normal office fat pad. Mild to moderate joint effusion. Supporting Subjective Information Below: Past Medical History: PAST MEDICAL HISTORY Diagnosis Date - Knee pain - Pain management Dr. Bubba rios [facility] suboxone - Substance abuse (HCC) Past Surgical History: PAST SURGICAL HISTORY Procedure Laterality Date - PAST SURGICAL HISTORY OF 2009 L knee ACL and Menicus tear Family History: No family history on file. Social History:Social History Marital status: Unknown Spouse name: Years of education: Number of children: Social History Main Topics Smoking status: Current Every Day Smoker Packs/day: 1.00 Years: 0.00 Types: Cigarettes Smokeless tobacco: Never Used Alcohol use: No Drug use: No Comment: past opiate addiction Medications: Current Outpatient Prescriptions: celecoxib (CELEBREX) 100 mg capsule Take 100 mg by mouth twice daily. Buprenorphine-nalOXone (SUBOXONE) 8-2 mg film Dissolve 1 Film under the tongue twice daily. celecoxib (CELEBREX) 200 mg capsule Take 1 capsule by mouth once daily. (Patient not taking: Reported on 12/12/2017 ) methylPREDNISolone (MEDROL, EKATERINA,) 4 mg Dose-Pack TAKE 1 PACK DIRECTED No current facility-administered medications for this visit. Allergies: Patient has no known allergies. ROS: General (negative for fatigue, malaise, weight loss/gain) HEENT (negative for headache, earache, recent vision changes, sinus pain, sore throat) Respiratory (no recent shortness of breath, hemoptysis) CV (negative for chest tightness, palpitations) Musculoskeletal (see HPI) Psych (no depression, anxiety) This note was partially generated using FiberLight voice recognition system, and there may be some incorrect words, spellings, and punctuation that were not noted in checking the note before saving. Shalini Anderson PA-C Referring Provider: SELF [[id number]] Allergies As of Date: 12/12/2017 (No Known Allergies) Date Reviewed: 12/12/2017 Reviewed by: Shalini Anderson (Pa) - Fully Assessed Reason for Visit: New problem [Other] Cmt: right knee pain, xray, last seen by BP 02-08-16, REF: Rheumatology. Reason For Visit History Recorded Primary Visit Diagnosis:Post-traumatic osteoarthritis of both knees [M17.2] Other Visit Diagnoses:Chronic pain of both knees [M25.561, M25.562, G89.29] Bilateral knee effusions [M25.461, M25.462] Prescriptions as of 12/12/2017 Sig: CELECOXIB 100 MG CAPSULE Take 100 mg by mouth twice da* BUPRENORPHINE 8 MG-NALOXONE 2* Dissolve 1 Film under the ton* CELECOXIB 200 MG CAPSULE Take 1 capsule by mouth once * Patient not taking: Reported on 12/12/2017 METHYLPREDNISOLONE 4 MG TABLE* TAKE 1 PACK DIRECTED Problem List As Of Date 12/12/2017 Noted Resolved Post-traumatic osteoarthritis of both knees [M1*INVALID FOR* Chronic pain of both knees [M25.561, M25.562, G*INVALID FOR* Encounter Status:Closed by SHALINI ANDERSON PA-C on 12/13/17 PROGRESS Observed: 12/12/2017 Status: COMPLETED Source: [place] 2:00 PM [facility] REPOSITORY O ID: [id number] Author: Beverley Kaur Rt Service: (none) Author Type: (none) Type: Progress Notes Filed: 12/12/2017 2:10 PM Note Text: Radiology Service Progress Note PATIENT NAME: Fransisco Cantor DATE OF SERVICE: December 12, 2017 TIME: 2:00 PM PATIENT IDENTITY VERIFICATION COMPLETED USING TWO (2) METHODS: Patient confirmed name verbally and Date of . PATIENT GENDER DATA: Male PATIENT RELEVANT IMPLANT DATA REVIEWED: Not Applicable RADIOLOGY DEPARTMENT: General X-ray: Exam(s) Completed: Lower Extremity X-Ray(s): Knee, AP / Lat / Tunne / Merchant Right and Wt. Bearing: PERIPHERAL IV DATA: Not applicable SIGNED BY: Beverley Kaur Rt December 12, 2017 2:00 PM DISCHARGE INSTRUCTION Observed: 11/02/2017 Status: F Source: [place] 1:00 AM [facility] RE[facility]IT[facility] Medical Records Department [address] [place] [address] Discharge Instruction 11/02/17 0059 MR#: [id number] Acct: [id number] Name: MANUFACTURING ANALYSTFRANSISCO Rep #: [id number] : 1975 42 From: Joe Santo MD PCP: Peggy Bell Status: REG ER ED Disposition - Plan for ED Patient: Chief Complaint: Alt LOC Instructions: ED Drug Abuse General Referrals: Peggy Jeffrey, WEIGHING STATION OPERATOR-C [Primary Care Provider] - What to do if you have Problems For any increased pain, shortness of breath, bleeding, nausea or vomiting, chest pain, or any unexpected problems, contact your Primary Care Provider. Call [facility] ([phone]) or report to the closest Emergency Room. Call 911 if necessary. 11/02/17 0100 <Electronically signed by Joe Santo MD> Date Joe Santo MD Cosigner Signature (If Indicated): Date CC: Peggy WISEMAN EMERGENCY DEPARTMENT Observed: 11/02/2017 Status: F Source: [place] SUMMARY 12:59 AM [facility] [place] RE[facility]IT[facility] Medical Records Department [address] [place] [address] Emergency Department Summary 11/02/17 0057 MR#: [id number] Acct: [id number] Name: MANUFACTURING ANALYSTFRANSISCO Rep #: [id number] : 1975 42 From: Joe Santo MD PCP: Peggy Bell Status: REG ER - ER Visit Summary Date of Service: 11/02/17 Chief Complaint: Meth abuse and hallucinations History of Present Illness: The patient is a 42 M who presents with hallucinations. He has a history of polysubstance drug abuse. He does admit to methamphetamine use although he states he is no longer using heroin. The patient states that he was with his brother and stated he had seen a police car and his brother explained that there was not a police car. After I spoke to the family they state that he was also stating there were multiple police officers hiding in the bushes and was trying to speak to someone over the fence when no one was there. The patient denies any suicidal or homicidal ideation. He does not feel he is risk to himself. Family agrees that he has made no suicidal threats and has no suicidal plan and they were concerned that he may be having a psychotic break due to his drug use. The patient denies any medical complaints. He denies chest pain shortness of breath nausea vomiting diarrhea. Physical Examination: Afebrile initial blood pressure 160/117 vitals otherwise normal Moist mucous membranes Heart regular rate and rhythm Lungs clear Abdomen soft Alert Test Results: CBC BMP hepatic function normal. Urine drug screen positive for amphetamines methamphetamines and benzodiazepines. Alcohol is negative. Emergency Department Course and Treatment: Patient actually has been calm and cooperative throughout his course here in the emergency department. He is able to answer questions clearly for me currently. He is alert and oriented 3. He does not appear to be internally stimulated. I do believe all of his delusions and paranoia earlier were related to drug abuse. I do believe he can be safely discharged at this time. Treatment Plan: [] Disposition: Discharge Impression: Polysubstance abuse Drug-induced psychosis This note was generated with FiberLight dictation software. It may contain incorrect words, spelling, and punctuation that were not noted in review of the chart prior to signing ED Disposition - Plan for ED Patient: Chief Complaint: Alt LOC Referrals: Peggy Jeffrey, WEIGHING STATION OPERATOR-C [Primary Care Provider] - What to do if you have Problems For any increased pain, shortness of breath, bleeding, nausea or vomiting, chest pain, or any unexpected problems, contact your Primary Care Provider. Call [facility] ([phone]) or report to the closest Emergency Room. Call 911 if necessary. 11/02/17 0059 <Electronically signed by Joe Santo MD> Date Joe Santo MD Cosigner Signature (If Indicated): Date CC: Peggy WISEMAN URINE DRUG SCREEN Collected: 11/02/2017 Status: F Source: [place] (VISTA) 12:05 AM [facility] REPOSITORY TYPE CODE TESTS RESULT OUT OF RANGE REFERENCE UNITS LAB L505.0075 TO BE Normal CONFIRMED Result Comment: CONFIRMATORY TESTING FOR ALL POSITIVE URINE DRUG SCREEN RESULTS WILL ONLY BE SENT OUT UPON PHYSICIAN ORDER. VISTA Urine Drug Screen methods provide only preliminary analytical test results. A more specific alternate chemical method must be used in order to obtain a confirmed analytical result. Gas chromatography/mass spectrometery (GC/MS) is the preferred confirmatory method. Clinical consideration and professional judgement should be applied to any drug of abuse test result, particularly when preliminary positive results are used. URINE TCA TESTING MUST BE ORDERED SEPARATELY. USE TEST MNEMONIC: [facility] LAB L505.5005 VISTA UDS PH 5 Normal LAB L505.5015 <1000 High ng/mL AMPHETAMINES POSITIVE LAB L505.5025 < 200 ng/mL BARBITIURATES Normal NEGATIVE LAB L505.5035 < 200 High ng/mL BENZODIAZIPINE POSITIVE LAB L505.5045 < 300 ng/mL COCAINE Normal NEGATIVE LAB L505.5055 < 500 High ng/mL ECSTACY POSITIVE LAB L505.5065 < 300 ng/mL METHADONE Normal NEGATIVE LAB L505.5075 < 300 ng/mL OPIATES Normal NEGATIVE LAB L505.5085 < 25 ng/mL PCP Normal NEGATIVE LAB L505.5095 < 50 ng/mL THC Normal NEGATIVE Performed By: #### L505.5000 #### [facility] [address] [place], [place], [address] CBC W/DIFF, AUTOMATED Collected: 11/02/2017 Status: F Source: [place] 12:05 AM [facility] TYPE CODE TESTS RESULT OUT OF RANGE REFERENCE UNITS LAB L100.1000 4.4-11.0 K/mm3 Normal WBC 7.4 LAB L100.1200 4.6-6.2 M/mm3 Normal RBC 4.80 LAB L100.1300 13.0-16.5 g/dl Normal HGB 14.4 LAB L100.1400 40-54 % Normal HCT 41.5 LAB L100.1500 80-94 fL Normal MCV 86.5 LAB L100.1600 27.0-32.0 pg Normal MCH 30.0 LAB L100.1700 32-36 g/gl Normal MCHC 34.7 LAB L100.1810 11.6-14.6 % Normal RDW CV 12.0 LAB L100.1820 35.1-43.9 fl Normal RDW SD 37.8 LAB L100.1900 150-450 K/mm3 Normal PLT 204 LAB L100.2000 6.2-12.0 fl Normal MPV 10.3 LAB L100.2100 47-70 % Normal NEUT% 48.1 LAB L100.2200 19-41 % Normal LY% 37.2 LAB L100.2300 0-10 % High MONO% 11.5 LAB L100.2400 0-5 % Normal EO% 2.7 LAB L100.2500 0-1 % Normal BASO% 0.4 LAB L100.2550 0.0-0.9 % Normal IM GRAN % 0.100 Result Comment: IG% - Immature Granulocytes (promyelocytes, myelocytes and metamyelocytes) > 1% indicates that a LEFT SHIFT is Present. LAB L100.2620 2.0-7.7 X10 3/uL Normal Absolute Neut 3.5 LAB L100.2720 0.83-4.51 X10 3/ul Normal Absolute Lymph 2.74 Performed By: #### L100.0100 #### [facility] [address] [place], [address] COMPREHENSIVE METABOLIC Collected: 11/02/2017 Status: F Source: [place] 12:05 AM [facility] REPOS[facility] TYPE CODE TESTS RESULT OUT OF RANGE REFERENCE UNITS LAB L501.0100 74-106 mg/dL Normal GLU 96 Result Comment: Please note revised GLUCOSE reference range effective 2017. LAB L501.1000 7-18 mg/dL Normal BUN 15 LAB L501.1100 0.70-1.30 mg/dL Normal CREAT,SERUM 1.29 Result Comment: The validity of the calculated GFR AND GFRAA in patients over 70 years has not been determined. Clinical correlation is essential. LAB L501.1110 >60 mL/min Normal EST GFR 65 Result Comment: Non- GFR Calc LAB L501.1115 >60 mL/min Normal EST GFR - AA 79 Result Comment: GFR Calc LAB L501.1255 ml/min Normal Estimated CRCL 94.97 LAB L501.1300 10-20 RATIO Normal BUN/CRE 11.6 LAB L501.1500 6.4-8. g/dL Normal 2 T PROT 7.4 LAB L501.1800 3.2-5. g/dL Normal 0 ALB 4.2 LAB L501.1950 2.2-4. g/dL Normal 2 GLOB 3.2 LAB L501.2000 0.9-2. RATIO Normal 4 A/G 1.3 LAB L501.2200 8.5-10 mg/dL Normal .1 CA 8.7 LAB L501.4100 15-37 U/L Normal AST 24 LAB L501.4305 45-117 U/L Normal ALK P 69 LAB L501.4405 16-61 U/L Normal ALT 30 LAB L501.4600 0.20-1 mg/dL Normal .00 T BILI 0.50 LAB L501.5300 136-14 mmol/L Normal 5 NA 142 LAB L501.5600 3.5-5. mmol/L Normal 1 K 4.0 LAB L501.5900 98-107 mmol/L Normal CL 106 LAB L501.6100 21.0-3 mmol/L Normal 2.0 CO2 29.0 LAB L501.6200 5-15 Normal GAP 7 Performed By: #### L500.4050 #### [facility] [address] [place], [address] ALCOHOL, BLOOD Collected: 11/02/2017 Status: F Source: [place] (MEDICAL)-SER[place] 12:05 AM [facility] REPOSITORY TYPE CODE TESTS RESULT OUT OF RANGE REFERENCE UNITS LAB L501.9100 mg/dL Normal SERUM < 3.0 ETOH Result Comment: The serum:whole blood ethanol ratio is approximately 1.14 and varies slightly with hematocrit. Medical Alcohol reference interval and critical value in non-tolerant individuals; 50 - 100 Impairment 100 Intoxication 100 - 250 Severe Poisoning 250 - 400 Deep/possible fatal coma Performed By: #### L501.9100 #### [facility] [address] [place], [address] ORTHOPEDIC VISIT Observed: 07/23/2017 Status: F Source: [place] REPORT 1:27 PM [facility] RE[facility]IT[facility] Orthopaedics AND Sports Medicine [address] [place] [address] [address] [place] [address] OFFICE VISIT Date of Service: 07/23/17 MR#: [id number] Acct: [id number] Name: FRANSISCO CANTOR Rep #: [id number] : 1975 Provider: Keegan Brown DO Age/Sex: 42/M Location[place] [facility] Status: Signed Intake Intake Visit Reasons: RIGHT KNEE Is patient in pain?: Yes Pain scale (1-10): 6 Allergies No Known Allergies Allergy (Verified 07/04/17 09:39) Medications Buprenorphine HCl/Naloxone HCl [Suboxone 2 mg-0.5 mg Sl Film] 1 ea SL BID 07/30/14 [History Confirmed 07/06/17] Celecoxib [Celebrex] 200 mg PO BID 06/24/17 [History Confirmed 07/06/17] PFSH Surgical History S/P left knee surgery (Inactive) Social History Smoking Status: Current every day smoker HPI RIGHT KNEE: Details: FRANSISCO CANTOR is a 42 year old M here today for right knee pain. He was scheduled for uni but due to his drug addiction he had to cancel. He is in an addiction program and staying at the skilled nursing house, his knee pain is increasing and he would like to discuss an injection today. Denies numbness, tingling or other associated symptoms. He has mild swelling and pain with ambulation. [place] [facility] [place] joint pain, Reports joint swelling, Reports muscle weakness, Reports decreased muscle mass, Reports as per HPI Ortho Exam Right Knee KNEE: Patient is alert oriented 3 no acute distress. Appropriate eye contact and affect. Otherwise intact from L1-S1 distributions. He has positive pulses. He has a +2 knee effusion. Range of motion otherwise preserved. Continue to be tender palpation across medial aspect of the knee. Assessment AND Plan Problems 1. Knee effusion, right M25.461 2. Chronic pain of right knee M25.561; G89.29 3. Primary osteoarthritis of right knee M17.11 Plan a/p: Patient's operative procedure to his right knee was canceled secondary to the fact that the patient has drug addiction issues and was actually in the emergency room due to concerns about possible overdose. At this point time patient is requesting a right knee aspiration injection. He is aware that he is not ready to have a total knee done. I told him that I would not do his knee surgery until he had his injection issues under control. I also told him that I am not operating on joints any further past July so that if he needs anything operatively done for his knee he will need to find another provider either at the [place] [facility] or with the [facility]. Patient understands but still desires to proceed with with an injection at this time which I agree. Patient had roughly 20 cc of clear fluid aspirated from his joint and then injected as above. Patient will follow-up me 3 months as needed.Obtained consent for injection. Under sterile conditions, injected the patients right knee with a 10cc cocktail of 8cc bupivacaine and 2cc kenalog. The patient tolerated the injection well without any noted complication. Patient should call our office if redness develops, pain worsens or if they have any concerns. Coding Level of Care Code No Charge Diagnoses Knee effusion, right M25.461 Chronic pain of right knee M25.561; G89.29 Chronicity: chronic Primary osteoarthritis of right knee M17.11 Osteoarthritis type: primary 07/23/17 1327 <Electronically signed by Keegan Brown DO> Date Keegan Brown DO Cosigner Signature: Date (if applicable) CC: 12 LEAD ELECTROCARDIOGRAM Observed: 07/09/2017 Status: F Source: [place] 1:32 PM [facility] Cardiovascular Services [address] [place] [address] 12 Lead EKG 07/06/17 1538 MR#: [id number] Acct: [id number] Name: MANUFACTURING ANALYSTFRANSISCO Obregon Rep #: [id number] : 1975 42 From: Orville Allen MD Attending Dr: Status: DEP ER Ordering Dr: Dudley Sorto MD Date: 07/06/17 Location: Sex: M C Admitted: Test Reason : Blood Pressure : / mmHG Vent. Rate : 103 BPM Atrial Rate : 103 BPM P-R Int : 162 ms QRS Dur : 096 ms QT Int : 346 ms P-R-T Axes : 048 045 042 degrees QTc Int : 453 ms Sinus tachycardia with occasional Premature ventricular complexes Otherwise normal ECG Confirmed by ORVILLE ALLEN ([id number]), publication editor YASMIN TURK ([id number]) on 07/09/2017 1:32:07 PM Referred By: Confirmed By:ORVILLE ALLEN 07/09/17 1332 Date Orville Allen MD CC: No Primary Care Physician; Dudley Sorto MD Signed ORTHOPEDIC VISIT Observed: 07/09/2017 Status: F Source: [place] REPORT 8:45 AM [facility] Orthopaedics AND Sports Medicine [address] [facility] [address] [place] [address] OFFICE VISIT Date of Service: 07/04/17 MR#: [id number] Acct: [id number] Name: FRANSISCO CANTOR Rep #: [id number] : 1975 Provider: Keegan Brown DO Age/Sex: 42/M [place] [facility] [place] [place]: Signed Intake Intake Visit Reasons: RIGHT KNEE Is patient in pain?: Yes Allergies No Known Allergies Allergy (Verified 07/04/17 09:39) Medications Buprenorphine HCl/Naloxone HCl [Suboxone 2 mg-0.5 mg Sl Film] 1 ea SL BID 07/30/14 [History Confirmed 07/06/17] Celecoxib [Celebrex] 200 mg PO BID 06/24/17 [History Confirmed 07/06/17] PFSH Surgical History S/P left knee surgery (Inactive) Social History Smoking Status: Current every day smoker HPI RIGHT KNEE: Details: FRANSISCO CANTOR is a 42 year old M here today for right knee. He would like to discuss getting an injection/aspiration today as well as discussing surgery. He complains of medial knee pain with any activity or even laying in bed. He describes it as a burning sensation. He states he limps with walking which by the end of the day his ankle and hip hurt. Constant swelling. Minimal tingling. No numbing. No issues with knee locking or giving out. He takes Ibuprofen as needed for pain as well as taking Celebrex. ROS Const Reports system reviewed and no additional complaints, except as docu Eyes Reports system reviewed and no additional complaints, except as docu ENT Reports system reviewed and no additional complaints, except as docu Card Reports system reviewed and no additional complaints, except as docu Resp Reports system reviewed and no additional complaints, except as docu GI Reports system reviewed and no additional complaints, except as docu Reports system reviewed and no additional complaints, except as docu Musc Reports joint pain, Reports joint swelling, Reports tingling Skin/Breast Reports system reviewed and no additional complaints, except as docu Neuro Yes tingling Psych Reports system reviewed and no additional complaints, except as docu Endo Reports system reviewed and no additional complaints, except as docu Doyle/Lymph Reports system reviewed and no additional complaints, except as docu Aller/Immun Reports system reviewed and no additional complaints, except as docu Ortho Exam Right Knee Contralateral Normal: No Swelling: Yes Homans Sign: No 2+: Effusion Knee ROM: Yes ROM-Flexion 0-140 (0 to 130.) Examination: Yes Med jt line tenderness, Yes Pain with flexion, Yes Reshma's Test, Yes Crepitus Quad Atrophy: No Stability: NML: Anterior Drawer, NML: Jennifer, NML: Posterior Drawer, NML: Valgus 0, NML: Varus 0, NML: Varus 30, NML: Dial 90, NML: Dial 30, 1+: Valgus 30 Popliteal Adenopathy: No Patella Translation: 1 Apprehension with Lateral Translation: No Patellar Tilt Normal: Yes Patella Grind: No KNEE: Patient is otherwise alert oriented 3 no acute distress. Appropriate eye contact and affect. Otherwise intact from L1-S1 distributions. He has positive pulses. EHL anterior gastrosoleus peroneals quads hamstrings 5 out of 5. His right knee shows continued 2+ effusion. He has a varus deformity correctable mildly to neutral. He has medial compartment arthrosis on his pain. Plain radiographs had previous scopes. Remains otherwise ligaments are stable no popliteal masses or adenopathy. Heart regular with an S1-S2 lungs clear ulceration bilaterally abdomen is soft nontender nondistended with no gross specimen or megaly.General: well developed, well nourished in no acute distress. Head: normocephalic and atraumatic Pulses: pulses normal in all 4 extremities. Neurologic: no focal deficits, cranial nerves II-XII grossly intact with normal sensation, reflexed, coordination, muscle strength and tone. Axillary Nodes: no significant adenopathy. Psych: alert and cooperative, normal mood and affect, normal attention span and concentration. Left Knee Contralateral Normal: No Swelling: No Homans Sign: No Knee ROM: Yes ROM-Extension -20 to 0, Yes ROM-Flexion 0-140, Yes ROM-Passive Extension -10 to 0, Yes ROM-Passive Flexion 0-140 Examination: Yes med jt line tenderness, Yes Pain with flexion, Yes Reshma's Test Quad Atrophy: No Stability: NML: Anterior Drawer, NML: Jennifer, NML: Posterior Drawer, NML: Valgus 0, NML: Valgus 30, NML: Varus 0, NML: Varus 30, NML: Dial 90, NML: Dial 30 Popliteal Adenopathy: No Patella Translation: 1 Apprehension with Lateral Translation: No Patellar Tilt Normal: Yes Patella Grind: No Assessment AND Plan Problems 1. Primary osteoarthritis of right knee M17.11 2. Chronic pain of right knee M25.561; G89.29 3. Knee effusion, right M25.461 Plan Assessment: Right knee osteoarthritis right knee pain right knee effusion. Plan: At this point time I discussed with the patient again his surgical options to include high tibia osteotomy which will be a minimum of 3-4 weeks of protected weightbearing especially with his height in order to allow the bone to heal. His other option is unicompartmental arthroplasty. I warned the patient that there is a chance for this to fail need early revision but is also to be the procedure that will perhaps get him back to work more quickly. At this point time patient does not feel he is able to be off as long as will be necessary earlier in terms of the height of the osteotomy to recover from is more inclined to proceed with the unicompartmental arthroplasty at this time. Patient does have a history of drug addiction is currently on Suboxone and will obviously need to be modified in order to proceed with intervention. So until we speak with his pain management counselor about how to proceed in terms of pain management he may be delayed otherwise plan proceed with operative intervention to include a right unicompartmental arthroplasty. Reviewed the pre-operative plans with the patient. Risks and benefits of the procedure were fully explained, including but not limited to infection, neurovascular injury, continued pain, arthritis, stiffness, need for further surgery, re-injury, DVT, PE, general risks of anesthesia, and loss of limb or life. The patient understands all the risks and does wish to proceed with written consent. Coding Level of Care Code Off vis,est,level 4 Diagnoses Primary osteoarthritis of right knee M17.11 Osteoarthritis type: primary Chronic pain of right knee M25.561; G89.29 Chronicity: chronic Knee effusion, right M25.461 07/09/17 0845 <Electronically signed by Keegan Brown DO> Date Keegan Parikh Signature: Date (if applicable) CC: EMERGENCY DEPARTMENT Observed: 07/07/2017 Status: F Source: [place] SUMMARY 12:30 AM [facility] RE[facility] Medical Records Department [address] [place] [address] Emergency Department Summary 07/06/17 1524 MR#: [id number] Acct: [id number] Name: FRANSISCO CANTOR Rep #: [id number] : 1975 42 From: Dudley Sorto MD PCP: Care Physician, No Primary Status: DEP ER - ER Visit Summary Date of Service: 07/06/17 Chief Complaint: Methamphetamine abuse History of Present Illness: The patient is a 42 M history of prior abuse. He also has a history of recent methamphetamine abuse (ice). Patient was abusing methamphetamines today. Became diaphoretic. He denies any other complaints. No headache, chest pain, shortness of breath. No syncope. He has not been ill recently. Physical Examination: Well appearing middle-aged male. Vital signs are stable afebrile. He is diaphoretic. But in no distress. H EENT exam unremarkable. Neck nontender no lymphadenopathy. Lungs clear to auscultation bilaterally. Heart regular rhythm rate about 105 no murmur. Abdomen soft nontender nondistended no giving or masses. Extremities moves all 4. Calves nontender no edema no cords. Neurologically is awake alert is answering questions moving all 4 extremities. Skin of the being diaphoretic is unremarkable. Back nontender. Test Results: EKG sinus tachycardia rate 103 with intermittent PVCs. No signs of NH or ischemia. No dysrhythmia. Emergency Department Course and Treatment: Patient is doing well on repeat exam at 1655 discharged home. Treatment Plan: She needs to follow-up with counseling. Disposition: discharge Impression: Methamphetamine abuse This note was generated with FiberLight dictation software. It may contain incorrect words, spelling, and punctuation that were not noted in review of the chart prior to signing ED Disposition - Plan for ED Patient: Chief Complaint: Subst Abuse Referrals: Care Physician,No Primary [Primary Care Provider] - What to do if you have Problems For any increased pain, shortness of breath, bleeding, nausea or vomiting, chest pain, or any unexpected problems, contact your Primary Care Provider. Call [email or web address] ([phone]) or report to the closest Emergency Room. Call 911 if necessary. 07/07/17 0030 <Electronically signed by Dudley Sorto MD> Date Dudley Sorto MD Cosigner Signature (If Indicated): Date CC: No Primary Care Physician DISCHARGE INSTRUCTION Observed: 07/07/2017 Status: F Source: [place] 12:30 AM [facility] Medical Records Department [address] [place] [address] Discharge Instruction 07/06/17 1655 MR#: [id number] Acct: [id number] Name: FRANSISCO CANTOR Rep #: [id number] : 1975 42 From: Dudley Sorto MD PCP: Care Physician, No Primary Status: DEP ER ED Disposition - Plan for ED Patient: Disposition: Home or Assisted Living Chief Complaint: Subst Abuse Instructions: ED Drug Abuse General Referrals: Rachid Cary MD [NON-STAFF] - As Needed Additional Instructions: I would strongly encourage you to do either outpatient or inpatient drug counseling and detox. What to do if you have Problems For any increased pain, shortness of breath, bleeding, nausea or vomiting, chest pain, or any unexpected problems, contact your Primary Care Provider. Call [facility] ([phone]) or report to the closest Emergency Room. Call 911 if necessary. 07/07/17 0030 <Electronically signed by Dudley Sorto MD> Date Dudley Sorto MD Cosigner Signature (If Indicated): Date CC: No Primary Care Physician DISCHARGE INSTRUCTION Observed: 06/24/2017 Status: F Source: [place] 10:27 AM [facility] RE[facility] Medical Records Department [address] [place] [address] Discharge Instruction 06/24/17 1026 MR#: [id number] Acct: [id number] Name: FRANSISCO CANTOR Rep #: [id number] : 1975 42 From: Steve Hebert DO PCP: Care Physician, No Primary Status: REG ER ED Disposition - Plan for ED Patient: Chief Complaint: Sore Throat Instructions: ED Strep Pharyngitis Conf Prescriptions: Amoxicillin 500 mg PO TID #30 tab Referrals: Care Physician,No Primary [Primary Care Provider] - Grady Steen MD [STAFF PHYSICIAN] - 5-7 Days What to do if you have Problems For any increased pain, shortness of breath, bleeding, nausea or vomiting, chest pain, or any unexpected problems, contact your Primary Care Provider. Call [facility] ([phone]) or report to the closest Emergency Room. Call 911 if necessary. 06/24/17 1027 <Electronically signed by Steve Hebert DO> Date Steve Hebert DO Cosigner Signature (If Indicated): Date CC: No Primary Care Physician EMERGENCY DEPARTMENT Observed: 06/24/2017 Status: F Source: [place] SUMMARY 10:26 AM [facility] Medical Records Department [address] [place] [address] Emergency Department Summary 06/24/17 1024 MR#: [id number] Acct: [id number] Name: FRANSISCO CANTOR Rep #: [id number] : 1975 42 From: Steve Hebert DO PCP: Bebo Physician, No Primary Status: REG ER - ER Visit Summary Date of Service: 06/24/17 Chief Complaint: [Sore throat] History of Present Illness: The patient is a 42 M [presents to the emergency department with a sore throat that started yesterday. Patient denies cough. Patient has had some chills and subjective fever. He denies any sick contacts. Patient describes painful swallowing.] Physical Examination: [HEENT-PERRLA, EOMI. Cranial nerves II through XII grossly intact. TMs clear. Mucous membranes moist. Bilateral anterior cervical adenopathy. Patient has pharyngeal erythema. No trismus. Small tonsillar exudates. Cardiovascular-regular rate and rhythm without murmur or ectopy Lungs-clear to auscultation, chest wall stable without crepitus or subcu emphysema Abdomen-normoactive bowel sounds, soft, nontender, no rebound or rigidity, no peritoneal signs. Extremities-intact 4, normal range of motion, normal pulses, atraumatic] Test Results: [Rapid strep screen was positive] Emergency Department Course and Treatment: [Patient was started on amoxicillin] Treatment Plan: [Amoxicillin, saltwater gargles, ibuprofen for discomfort] Disposition: [Discharged to home in stable condition. Patient advised to return if increased difficulty swallowing or condition should worsen in any way.] Impression: [Strep pharyngitis] This note was generated with FiberLight dictation software. It may contain incorrect words, spelling, and punctuation that were not noted in review of the chart prior to signing ED Disposition - Plan for ED Patient: Chief Complaint: Sore Throat Referrals: Care Physician,No Primary [Primary Care Provider] - What to do if you have Problems For any increased pain, shortness of breath, bleeding, nausea or vomiting, chest pain, or any unexpected problems, contact your Primary Care Provider. Call [facility] ([phone]) or report to the closest Emergency Room. Call 911 if necessary. 06/24/17 1026 <Electronically signed by Steve Hebert DO> Date Steve Hebert DO Cosigner Signature (If Indicated): Date CC: No Primary Care Physician Observed: 06/24/2017 Status: F Source: [place] STREP A (THROAT 9:45 AM [facility] SADI) REPOSITORY Results called on 06/24/17-102 by RICKIEON to FIGUEROA/ED. Strep A Rapid Rapid Strep A Screen POSITIVE A Disk (Conf. Cult) POSITIVE for Group A Strep : All NEGATIVE screens will be confirmed with a culture. ORGANISM 1: Streptococcus Group A Performed By: #### M100.676 #### [facility] [address] [place], [address] ALLERGIES ALLERGIES DATE TYPE / CODE NAME / CODE REACTION SEVERITY SOURCE 07/04/2017 Drug No Known Unknown [facility] Allergy/416 Allergies/I56938 Hospital 242298(SNOM 0388(RXNORM) Repository ED CT) Drug NO KNOWN [facility] Class/64188 ALLERGIES [employer] 1003(SNOMED Repository CT) ENCOUNTERS ENCOUNTERS ADMIT/DISCHARGE ACCOUNT NUMBER ADMITTING ENCOUNTER LOCATION SOURCE CLASS 04/19/2018 [id number] Ambulatory BBuilding:[facility] Repository 04/04/2018/04/13/20 [id number] Yesy, Inpatient [place] Nany [place] Encounter [facility] ding:RURoom: Repository EX588Hgp: 1 04/04/2018 [id number] Yesy Ambulatory BMSBuilding: [place] BMS.[facility] Repository 04/04/2018 [id number] Jody Hayward BMSBuilding: [place] BMS.[facility] Repository 04/01/2018 [id number] Ambulatory [facility] Repository 04/01/2018 [id number] Inpatient BuildinA [facility] Encounter 1ERoom: System [id number]: Repository [id number] 03/28/2018 [id number] Ambulatory [facility] Repository 03/25/2018 [id number] Ambulatory [facility] Repository 03/08/2018/03/08/20 [id number] Ambulatory [address] Repository 03/04/2018/03/05/20 [id number] Ambulatory [address] Repository 12/12/2017/12/15/19 [id number] Ambulatory [address] Repository 12/12/2017/12/13/19 [id number] Ambulatory [address] Repository 11/01/2017/07/13 [id number] [place] 18 [facility] ding:ED Repository 08/21/2017 [id number] Chago, Ambulatory [place] Renard Keegan [facility] ding:SDC Repository 07/23/2017/07/24/19 [id number] Ambulatory BMSBuilding: [place] 18 BMS.[facility] Repository 07/06/2017/07/07/19 [id number] Emergency [place] 18 [facility] ding:ED Repository 07/04/2017/07/05/19 [id number] Ambulatory BMSBuilding: [place] 18 BMS[facility] Repository 06/24/2017/06/25/19 [id number] Emergency [place] 18 [facility] ding:ED Repository PAYERS PAYERS ENCOUNTER GUARANTOR PAYER SUBSCRIBER SOURCE 04/19/2018 FRANSISCO Peterson Primary FRANSISCO [facility] TRADERDOB: Insurance:CARESOURCE TRADERDOB: [facility] INSCOPolicy Number: [id number] Repository [place] [id number] [facility], Date:2018-04-19 - [place], [place] [address]Llv: [id number] [place] [address]Kzq: Name:WILFREDOO Box () [address] [place] [address] ()Tel: [phone]: [phone] 04/04/2018 FRANSISCO Peterson Primary FRANSISCO W [place] [id number] Insurance:CARESOURCEP TRADERDOB: [facility] Number: [id number], [place] [id number] Repository [address]Ogq: ([phone]) Date:2018-04-04P [phone] () [address]ATTN: [place] [address]IT: 04/04/2018 Secondary NOT GIVENUNK [place] Insurance:SELF PAY [facility] Number: Effective Repository Date:2018-04-04 04/04/2018 FRANSISCO W Primary FRANSISCO W [place] [id number] Insurance:CARESOURCEP TRADERDOB: Community BETO olicy Number: [id number], [place] [id number] Repository [address]Uhg: ([phone]) Date:2018-04-04P O [phone] () [address]ATTN: [place] [address]SE: 04/04/2018 Secondary NOT GIVENUNK [place] Insurance:SELF PAY [facility] Number: Effective Repository Date:2018-04-04 04/04/2018 FRANSISCO W Primary FRANSISCO W [place] [id number] Insurance:CARESOURCEP TRADERDOB: [facility] BETO chatman Number: [id number], [place] [id number] Repository [address]Kln: ([phone]) Date:2018-04-04P O [phone] () [address]ATTN: [place] [address]PS: 04/04/2018 Secondary NOT GIVENUNK [place] Insurance:SELF PAY [facility] Number: Effective Repository Date:2018-04-04 04/01/2018 Fransisco TraderDOB: Primary NOT GIVENUNK [employer] Insurance:CareSourceP System [place] olicy Number: Repository [place], [place] Effective Date: [address]Czo: () 04/01/2018 Fransisco TraderDOB: Primary Fransisco TraderDOB: [facility] Insurance:CareSourceP [id number] System [place] olicy Number: Repository [place], [place] Effective Date: [address]Cfc: (HP) 03/28/2018 Fransisco TraderDOB: Primary Fransisco TraderDOB: [facility] Insurance:CareSourceP [id number] System Beto olicy Number: Repository [place], [place] Effective Date: [address]Nhd: (HP) 03/25/2018 Fransisco TraderDOB: Primary NOT GIVENUNK [facility] Insurance:CareSourceP System Beto chatman Number: Repository [place], [place] Effective Date: [address]Seb: (HP) 11/01/2017 FRANSISCO W Primary FRANSISCO W [place] [id number] Insurance:CARESOURCEP TRADERDOB: [facility] BETO chatman Number: [id number], [place] [id number] Repository [address]Jfo: ([phone]) Date:2017-11-01 O [phone] () [address]ATTN: [place] [address]XY: 11/01/2017 Secondary NOT GIVENUNK [place] Insurance:SELF PAY [facility] Number: Effective Repository Date:2017-11-01 08/21/2017 FRANSISCO W Primary FRANSISCO W [place] [id number] Insurance:CARESOURCEP TRADERDOB: [facility] BETO chatman Number: [id number], [place] [id number] Repository [address]Fei: ([phone]) Date:2017-07-05 O [phone] () [address]ATTN: [place] [address]CV: 08/21/2017 Secondary NOT GIVENUNK [place] Insurance:SELF PAY [facility] Number: Effective Repository Date:2017-07-05 07/23/2017 FRANSISCO W Primary FRANSISCO W [place] [id number] Insurance:CARESOURCEP TRADERDOB: [facility] BETO chatman Number: [id number], [place] [id number] Repository [address]Vif: ([phone]) Date:2017-07-18P O [phone] () [address]ATTN: [place] [address]LO: 07/23/2017 Secondary NOT GIVENUNK [place] Insurance:SELF PAY [facility] Number: Effective Repository Date:2017-07-19 07/06/2017 FRANSISCO W Primary FRANSISCO Peterson [place] [id number] Insurance:CARESOURCEP TRADERDOB: Community BETO chatman Number: [id number], [place] [id number] Repository [address]Vwb: ([phone]) Date:2017-07-06P O [phone] (HP) [address]ATTN: [place] [address]ER: 07/06/2017 Secondary NOT GIVENUNK [place] Insurance:SELF PAY [facility] Number: Effective Repository Date:2017-07-06 07/04/2017 FRANSISCO W Primary FRANSISCO Peterson [place] [id number] Insurance:CARESOURCEP TRADERDOB: [facility] BETO chatman Number: [id number], [place] [id number] Repository [address]Rmk: ([phone]) Date:2017-07-03P O [phone] (HP) [address]ATTN: [place] [address]VC: 07/04/2017 Secondary NOT GIVENUNK [place] Insurance:SELF PAY [facility] Number: Effective Repository Date:2017-07-03 06/24/2017 FRANSISCO W Primary FRANSISCO Peterson [place] [id number] Insurance:CARESOURCEP TRADERDOB: [facility] Beto chatman Number: [id number], [place] [id number] Repository [address]Pry: ([phone]) Date:2017-06-24P O [phone] (HP) [address]ATTN: [place] [address]EU: 06/24/2017 Secondary NOT GIVENUNK [place] Insurance:SELF PAY [facility] Number: Effective Repository Date:2017-06-24
--- OUTSIDE RECORDS SUMMARY | 2018-05-21 07:32 | XMS RPT_ITS ---
:1975 Author Organization [facility] Address [address] [place] [address] Phone Care Team Providers Name Role Phone Herberth Harmon MD Reason for Visit Reason For Visit Description Start Date New - 1st visit with practice Preliminary reason for visit data, not yet signed by the author as of bilateral knee pain Preliminary reason for visit data, not yet signed by the author as of Chief Complaint Chief Complaint Description Start Date bilateral knee pain Preliminary chief complaint data, not yet signed by the author as of Instructions Instruction Description Start Date CompletedPlease follow-up with Primary Care Physician or Covering Machine Tender for treatment or adjustment of medication regarding elevated blood pressure.Patient advised to follow-up with Primary Care Physician for BMI management. Plan of Care Type Date Detail Appointment 10:00 AM Herbreth Harmon MD, [address] [place] [address], [address], Patient education \cps-sql1\CPS_PtEducation\qu itting_smoking_[id number].pdf, \cps-sql1\CPS_PtEducation\ht n.pdf Medications Medication Instructions Start Stop Generic Name NDC Provider Date Date VISTARIL 25 MG one capsule / HYDROXYZINE [id number] Herberth A CAPS three times 22 PAMOATE Faustino DACOSTA daily as needed CELEBREX 100 one capsule / CELECOXIB [id number] Herberth A MG CAPS twice daily 22 Faustino DACOSTA SUBOXONE 8-2 one film twice / BUPRENORPHINE [id number] Herberth A MG FILM daily 22 HCL-NALOXONE HCL Faustino DACOSTA Conditions or Problems Problem Name Problem Onset Status Entry Provider Comment Standard Annotate Code Date Date Description 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) osteoarthritis of knee of knee Allergies, Adverse Reactions, Alerts Observed no known allergies at Social History Concept Description Observation Name Observation Value Units Start Date Alcohol use ETOH USE No Preliminary social history data, not yet signed by the author as of Current every day SMOK STATUS current everyday smoker smoker Preliminary social history data, not yet signed by the author as of Details of drug DRUG USE No misuse behavior Preliminary social history data, not yet signed by the author as of Tobacco use and SMOK ADVICE Yes exposure Preliminary social history data, not yet signed by the author as of Vital Signs Date Name Value Unit Description BMI (Body Mass 28.80 kg/m2 Body Mass Index Index) [Ratio] Preliminary vital sign data, not yet signed by the author as of BP Diastolic 98 mm[Hg] blood pressure, diastolic Preliminary vital sign data, not yet signed by the author as of BP Diastolic 96 mm[Hg] blood pressure, diastolic, second observation Preliminary vital sign data, not yet signed by the author as of BP Systolic 133 mm[Hg] blood pressure, systolic Preliminary vital sign data, not yet signed by the author as of BP Systolic 138 mm[Hg] blood pressure, systolic, second observation Preliminary vital sign data, not yet signed by the author as of Heart Rate 74 /min pulse rate E&M Preliminary vital sign data, not yet signed by the author as of Height 77 [in_us] height E&M Preliminary vital sign data, not yet signed by the author as of Height 196 cm height in centimeters E&M Preliminary vital sign data, not yet signed by the author as of Weight Measured 242 [lb_av] weight E&M Preliminary vital sign data, not yet signed by the author as of Weight Measured 110 kg weight in kilograms E&M Preliminary vital sign data, not yet signed by the author as of Results Date Name Value Unit Range Flag Description Office Visit: New - 1st visit with practice, Rm: 2 MEDS REVIEW Done Documentation of current medications (procedure) Preliminary observation data, not yet signed by the author as of SMOK ADVICE Yes Smoking cessation education (procedure) Preliminary observation data, not yet signed by the author as of SMOK STATUS current everyday Tobacco smoker smoking status NHIS Preliminary observation data, not yet signed by the author as of Preliminary observation data, not yet signed by the author as of XRAY HX of the bilateral xray history knees on 08/21/2016 at [facility] Preliminary observation data, not yet signed by the author as of MRI HX of the right knee MRI (magnetic on 09/05/2016 at [facility] imaging) history Preliminary observation data, not yet signed by the author as of Clinical Summary: Scanned ROS Summary ROS: Denies genitourinary review of systems, E&M ROS: GI Denies ROS gastrointestinal E&M ROS ENDO Denies endocrine ROS ROS MSK COMM Joint ROS Musculoskeletal Swelling,Muscle comments Cramps,Muscle Weakness,Pain,J oint Pain,Stiffness, Arthritis ROS:MUSCSKEL Complains ROS musculoskeletal E&M ROSPSYCHCOMM Anxiety,Tension ROS Psych comment ,Memory Loss,Difficulty Sleeping ROS: PSYCH Complains ROS psychiatric E&M ROS HEME Denies ROS hematologic/lymphatic E&M ROS SKIN Denies ROS skin E&M ROS ENT Denies ROS ENT E&M ROS:GENERAL Denies ROS general E&M ROS: NEURO Denies ROS neurological E&M ROS:PULMON Denies ROS pulmonary E&M ROS: CARDIAC Denies ROS cardiovascular E&M Clinical Summary: HMSPatientID [facility] account number Clinical Summary: Scanned History Summary DEP EXERCISE No data entered by patient, exercise history DEP DRUG USE No data entered by patient, drug (of abuse) use DEP CIG SMKG 1 pack a day data entered by patient, cigarette smoking TOBUSEWH tobacco use, when do you smoke? DEP SH CSMO current everyday data entered by smoker patient, social history, current smoker DEP ETOH USE No data entered by patient, alcohol (ethanol or ETOH) use SWHOUTYPE house Housing Type: apartment, house, senior living, trailer, none DEP SH MAST single data entered by patient, social history, marital status DEP EMPLOYER unemployed data entered by patient, Employer Name DEP ALG LIST I don't have any Data entered by Drug AllergiesI patient, don't have any allergy list Environmental AllergiesI don't have any Food Allergies DEP MED LIST [id number] Data entered by ce a patient, [id number] medication list ice [id number] -Up to 3 daily SISTERS PMH My sister's health medical history history is unknown of patient's sister BROTHERS PMH My brother's health medical history history is unknown of patient's brother(s) MOTHER A/D Alive mother of patient is alive or DEP MOM PMH Arthritis data entered by patient, mother's medical history FATHER A/D Alive father of patient is alive or DEP DAD PMH ArthritisHigh blood data entered by pressure patient, father's medical history DEP PMH Anxiety data entered by patient, past medical history DEP SURGERY ACL reconstruction Data entered by patient, history of past surgeries Procedures Code Procedure Name Date Entry Date CPT-56853 XR KNEE 4 + VWS-LT CPT-19657 XR KNEE 4+ VWS-RT G8730 Pain assessment documented as positive - follow-up documented G8427 Current medications documented 4004F Tobacco screening was positive - cessation counseling received G8417 BMI documented as above normal parameters - follow-up documented G8950 Blood pressure outside of normal parameters - follow-up documented 1006F Osteoarthritis symptoms and functional status assessed [facility]-[id number] Patient Encounter Medications Administered No information available. [...]
== END 2018-04-13 12:40 | disposition home or self-care (01) | DRG 862 ==
PROVIDERS: Nurse Practitioner Acute Care; Admitting Provider Psychiatry & Neurology Neurology; Family Provider Nurse Practitioner Family; PCP Nurse Practitioner Family; Referring Provider Psychiatry & Neurology Neurology
DX: Z47.1 Aftercare following joint replacement surgery (principal); Z96.653 Presence of artificial knee joint, bilateral; F11.10 Opioid abuse, uncomplicated; F17.210 Nicotine dependence, cigarettes, uncomplicated
CPT/HCPCS: 36415; 80048; 82306; 83735; 84100; 85025; 93971; 97110; 97116; 97162; 97165; 97166; 97530; 97535; 97802; 99406

== ENCOUNTER 2018-08-01 06:12 | Emergency (ER) | payer MEDICAID, SELFPAY ==
[2018-04-04 12:29] VITALS: BMI 30.9
[2018-08-01 06:14] VITALS: BP 170/95; PULSE 88; RESP 16; TEMP 36.4; O2SAT 98; BMI 30.8
--- NOTE | 2018-08-01 06:35 | CT_ITS ---
STUDY: CT BRAIN WITHOUT CONTRAST REASON FOR EXAM: Male, 43 years old. Visualization RADIATION DOSAGE (If Supplied By Facility): CTDIvol = ( 44.99 ) mGy, DLP = ( 812.98 ) mGycm TECHNIQUE: Transaxial CT imaging of the brain was performed without administration of intravenous contrast material. Individualized dose optimization techniques were used for this CT. COMPARISON: No relevant priors. FINDINGS: Normal soft tissue structures. Normal calvarium. Normal size ventricles and extra-axial spaces for the patient's age. Normal white matter tracts of the cerebral hemispheres. Normal basal ganglia and thalami. Normal brainstem. Normal cerebellum. There is no intracranial hemorrhage. There are no findings of an acute ischemic infarction. Normal visualized paranasal sinuses. CT/Brain/Head without Contrast IMPRESSION: Normal unenhanced CT scan of the brain. Electronically Signed: Eliazar Lazaro MD at 7:17 EDT , Service support ,
--- NOTE | 2018-08-01 06:42 | ED.DCSUM_ITS ---
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 He has injected it in the past, but he mostly snorts it now. The day before yesterday, he used a decent am ount and proceeded to see vehicles and break the lights of what he thought were authorities coming for him. This was the night before last. He displayed paranoid behaviors throughout the day, and is brought to the ER after 6 AM this morning because he called EMS about being very cold outside. He states that when he got off of work yesterday, he saw a vehicle outside of his house that he thought were authorities waiting for him. So he did not stop at his home, but rather went down the street to stay with a friend. Overnight this morning, he was outside taking pictures of vehicles that he believed to be authorities watching for him so that people would believe me, that these people are out to get me. Initially he states that he was outside for about an hour but then states that he became so cold that he realized he was probably outside a lot longer than that. He was shivering upon EMS picking him up, states that now that he has blankets on he is feeling much better. He states he was concerned that he barely used any methamphetamine yesterday to explain these possible hallucinations and feelings. He states he has felt like this in the past with heavy drug use, he has a history of using cocaine and heroin in the past but nothing recently, and states he wants testing to make sure he has nothing else going on. Past Medical History - Allergies and Home Meds Allergies/Adverse Reactions: Allergies No Known Allergies Allergy (Verified 07/04/17 09:39) Primary Care Physician: Peggy Jeffrey NP-C [Primary Care Provider] - Surgical History: - - Anterior cruciate ligament repair 2008, and Mouth surgery 2006 Lives: Alone Smoking Status: Current every day smoker Drugs: Cocaine - in past, Heroin - in past, - - methamphetamine Review of Systems General: Denies: Chills, Fever, Sweats Eyes: Denies: Visual changes - bilaterally, Diplopia ENT: Denies: Rhinorrhea, Sore throat Cardiovascular: Denies: Chest pain, Palpitations Respiratory: Denies: Dyspnea, Cough, Dyspnea on exertion Gastrointestinal: Denies: Abdominal pain, Nausea, Vomiting, Diarrhea, Melena, Hematochezia Genitourinary: Denies: Dysuria, Hematuria, Frequency Musculoskeletal: Denies: Back pain, Extremity Pain Skin: Denies: Rash, Wounds Neurological: Denies: Headache, Weakness, Numbness Psych: Reports: Anxiety, - - paranoia. Denies: Suicidal thoughts Physical Exam Vital Signs/Narrative: Vital Signs Temp Pulse Resp BP Pulse Ox 08/01/18 06:14 97.6 F L 88 16 170/95 H 98 Inital Vital Signs reviewed: Yes General: Well nourished, Well developed, No Acute Distress Head: Normocephalic, Atraumatic Eyes: Perrl, EOMI. Negative for: Scleral icterus ENT: Moist mucous membranes, No rhinorrhea Neck: Supple, Nontender Cardiovascular: Regular rate, Regular rhythm, No murmurs, Normal S1, Normal S2. Negative for: Tachycardia Respiratory: No distress, CTA bilaterally, Chest nontender Abdomen: Soft, Nontender, Nondistended, Normal bowel sounds Back: Nontender, Normal Inspection Extremities: Nontender, No edema. Negative for: Calf Tenderness Skin: Normal color, No rash, No Trauma Neurological: Alert, Oriented x3, Cranial nerves II-XII grossly intact, Normal Strength, Normal Sensation Psychological: - - mildly anxious. cooperative. insightful that he could be paranoid about things/vehicles unrelated to him in reality. Diagnostic/Tx/Re-eval - Medical Decision Making Patient does not have a known history of schizophrenia. He has a long-standing history of significant drug use, including recently. He is realistic in accepting the possibility that his paranoid delusions could be due to drug use, especially if the substances he recently used were laced with something else. He is amenable to a drug screen for that reason in addition to testing to rule out organic causes of hallucinations and paranoid behavior. It would be difficult to tell if he was actually having visual hallucinations or not. However he does not describe police tackling him, or other scenarios that seem unlikely. He is describing a black suburban that stopped outside my house or a truck with a trailer, you know, the ones they use for drug busts on his street. I think if his workup is negative, he may be safely discharged home, advised to abstain from illicit drug use. I discussed this with him and he is comfortable with this overall plan. Patient presents just before shift change, the workup was ordered, and will be checked out to the oncoming emergency physician. He is not hypothermic. ED Disposition - Plan for ED Patient: Disposition: Home or Assisted Living Diagnosis: Methamphetamine abuse, Paranoid behavior Instructions: ED Drug Abuse General Referrals: Peggy Jeffrey NP-C [Primary Care Provider] - [facility] [STAFF PHYSICIAN] - ( call if you are interested in outpatient rehab services for substance use)
[2018-08-01 06:56] LABS: Absolute Lymphocyte Count 2.82 X10^3/ul (0.83-4.51); Absolute Neutrophil Count 6.7 X10^3/uL (2.0-7.7); Basophil# 0.06 X10^3/uL; Basophil% 0.6 % (0-1); Eosinophil# 0.12 X10^3/uL; Eosinophils% 1.2 % (0-5); Hematocrit 49.1 % (40-54); Hemoglobin 16.2 g/dl (13.0-16.5); Lymphocyte # 2.82 X10^3/ul (4.0); Lymphocyte % 27.2 % (19-41); Mean Corpuscular Hgb 27.7 pg (27.0-32.0); Mean Corpuscular Volume 84.1 fL (80-94); Mean Platelet Vol. 9.3 fl (6.2-12.0); Monocyte# 0.65 X10^3/uL; Monocyte% 6.3 % (0-10); Neutrophil # 6.71 X10^3/uL (2.7-7.7); Neutrophil % 64.5 % (47-70); Platelet Count 314 K/mm3 (150-450); RBC Distribution Width CV 14.7 % (11.6-14.6); RBC Distribution Width SD 44.8 fl (35.1-43.9); Red Blood Count 5.84 M/mm3 (4.6-6.2); White Blood Count 10.4 K/mm3 (4.4-11.0)
[2018-08-01 06:58] LABS: POSITIVE COUNT NO; POSITIVE DIFFERENTIAL NO; POSITIVE MORPHOLOGY NO
[2018-08-01 07:12] LABS: Amphetamine Urine VISTA POSITIVE (<1000 ng/mL); Barbiturate Urine VISTA NEGATIVE (< 200 ng/mL); Benzodiazepine Urine VISTA POSITIVE (< 200 ng/mL); Cocaine Urine VISTA NEGATIVE (< 300 ng/mL); Ecstacy Urine VISTA POSITIVE (< 500 ng/mL); Methadone Urine VISTA NEGATIVE (< 300 ng/mL); PCP Urine VISTA NEGATIVE (< 25 ng/mL); THC Urine VISTA NEGATIVE (< 50 ng/mL); Vista UDS pH Range 5
[2018-08-01 07:18] LABS: Anion Gap 5 (5-15); BUN 8 mg/dL (7-18); BUN/Creat Ratio 10.2 RATIO (10-20); Calcium,Total 9.5 mg/dL (8.5-10.1); Chloride 102 mmol/L (98-107); Creatinine, Serum 0.79 mg/dL (0.70-1.30); EST Glomerular Filtration Rate 115 mL/min (>60); Est Glom Filt Rate - Afr Amer 139 mL/min (>60); Estimated Creatinine Clearance 153.51 ml/min; Glucose 102 mg/dL (74-106); Potassium 4.3 mmol/L (3.5-5.1); Sodium Level 136 mmol/L (136-145); Thyroid Stim Hormone (TSH) 1.45 uIU/mL (0.358-3.74)
[2018-08-01 12:32] LABS: Bacteria 0 SEEN /hpf (None Seen); Mucous, Urine 0 SEEN /hpf (<or=2+); Red Blood Cells-Urine 0 SEEN /hpf (0-5); White Blood Cells 0 SEEN /hpf (0-5)
[2018-08-01 12:41] LABS: Color, Urine Yellow (Yellow); Glucose, Dipstick Normal (Normal); Ketone-Dipstick 5 mg/dl (Negative); Leukocyte Esterase-Dipstick 25 /ul (Negative); Nitrite-Dipstick Negative (Negative); Occult Blood-Urine Negative /ul (Negative); Protein-Dipstick 15 mg/dl (Negative); Urine Clarity Cloudy (Clear); Urine Urobilinogen 1 mg/dl (Normal)
[2018-08-01 12:42] LABS: Urine Bilirubin Dipstick 1 mg/dL (Negative)
[2018-08-01 12:50] LABS: Amorphous Sediment 2+; Squamous Epithelial Cells - UA 0-5 SEEN /hpf (0-5)
== END 2018-08-01 07:25 | disposition home or self-care (01) ==
PROVIDERS: Emergency Provider Emergency Medicine; Family Provider Nurse Practitioner Family; PCP Nurse Practitioner Family
DX: F23 Brief psychotic disorder (principal); F15.10 Other stimulant abuse, uncomplicated
CPT/HCPCS: 36415; 70450; 80048; 80307; 81001; 84443; 85025; 99282

== ENCOUNTER 2018-10-08 07:48 | Inpatient (IN) | payer MEDICAID, SELFPAY ==
[2018-10-08] VITALS (8 sets, daily range): BP systolic 119–156; BP diastolic 77–98; PULSE 73–92; RESP 18–20; TEMP 36.3–36.8; O2SAT 97–99; BMI 29.6; BMI 27.7
--- NOTE | 2018-10-08 08:13 | NURSING ---
DR KHUSHI MARES
--- NOTE | 2018-10-08 08:25 | NURSING ---
MED SURG OPOID WITHDRAWAL KHUSHI
--- NOTE | 2018-10-08 08:29 | ED.VISSUMM ---
- ER Visit Summary Date of Service: 10/08/18 Chief Complaint: [Request for detox from opiates] History of Present Illness: The patient is a 43 M [presents the emergency department with symptoms related to withdrawal from opiates. Patient spoke with skye swann who advised him to come to the emergency department. Patient is complaining of feeling sweaty, anxious, goosebumps, diarrhea, and overall not feeling well. He denies any fevers. He denies recent illness. Patient's last use was around 5 PM yesterday and he used heroin. Patient has history of using heroin, fentanyl, and methamphetamines occasionally. Patient denies any alcohol use.] Physical Examination: [HEENT-PERRLA, EOMI. Cranial nerves II through XII grossly intact. TMs clear. Mucous membranes moist. No adenopathy. Diaphoretic Cardiovascular-regular rate and rhythm without murmur or ectopy Lungs-clear to auscultation, chest wall stable without crepitus or subcu emphysema Abdomen-normoactive bowel sounds, soft, nontender, no rebound or rigidity, no peritoneal signs. Neuro [id number] and heel hopper testing within normal limits. Patient does have a fine tremor. Extremities-intact ?4, normal range of motion, normal pulses, atraumatic] Test Results: [None indicated] Emergency Department Course and Treatment: [Case was discussed with hospitalist will admit patient] Treatment Plan: [Admit to [facility] for detox] Disposition: [Admit] Impression: [Opiate withdrawal] This note was generated with [employer] dictation software. It may contain incorrect words, spelling, and punctuation that were not noted in review of the chart prior to signing ED Disposition - Plan for ED Patient: Referrals: Peggy Jeffrey, SMOCKING MACHINE OPERATOR-C [Primary Care Provider] -
--- NOTE | 2018-10-08 09:32 | PCM.HP.STD ---
Problem List (1) Acute opioid withdrawal Status: Acute (2) Polysubstance dependence including opioid type drug, continuous use Status: Chronic (3) Benzodiazepine use and dependence Status: Chronic (4) Amphetamine use disorder, moderate, dependence Status: Chronic History of Present Illness Date of Admission: 10/08/18 Chief Complaint: Opioid withdrawal syndrome The patient is a 43 year old M with history of chronic substance use heroin, fentanyl along with methamphetamine, crack cocaine use about once or twice a week came to ED for acute withdrawal symptoms. Patient has tremors, restlessness feeling chills and nausea. Patient also has tingling sensation in both legs. Denies vomiting or diarrhea but has mild nausea. Patient also has both knee replaced after chronic ligament injury, ACL and menisci Patient has history of chronic obstructive sleep but denies HIV. [] Past Medical History Past Medical History (Chronic Problems): Chronic Problems (Last Reviewed 07/04/17 @ 09:45 by Patito Love) Polysubstance dependence including opioid type drug, continuous use (Chronic) Benzodiazepine use and dependence (Chronic) Amphetamine use disorder, moderate, dependence (Chronic) Allergies No Known Allergies Allergy (Verified 10/08/18 08:40) Home Medications: Ambulatory Orders Medication Instructions Recorded NK 10/08/18 Surgical History: Surgical History (Last Updated 07/04/17 @ 09:46 by Patito Love) S/P left knee surgery Z98.890 ACL meniscus repair 2009 Surgical History: - - Anterior cruciate ligament repair 2008, and Mouth surgery 2006 Psychiatric History: Anxiety Smoking Status: Current every day smoker - *Family History Maternal History Items: - - Depression Review of Systems Constitutional: Reports: Chills, Malaise, Weakness, Fatigue. Denies: Fever, Weight Change HEENT: Denies: Head Aches, Sinus Congestion, Sinus Drainage Cardiovascular: Denies: Chest Pain, Palpitations Respiratory: Denies: Cough, Shortness of breath at rest, Sputum production Gastrointestinal: Denies: Abdominal Pain, Nausea, Vomiting Genitourinary: Denies: Dysuria Musculoskeletal: Denies: Joint Pain, Joint Tenderness Skin: Denies: Rash, Wounds Neurological: Reports: Balance problems. Denies: Focal weakness, Numbness, Tingling Psychiatric: Reports: Anxiety, Depression. Denies: Homicidal Ideations, Suicidal Ideations Hematologic/ Lymphatic: Denies: Easy Bruising, Easy Bleeding VTE Information - Inpt Only VTE Present on Admission: No VTE Mechan Device Prophylaxis: None VTE Pharm Prophylaxis ordered?: Yes Reason prophylaxis not ordered:: Procedure Not Indicated Patient Problems: Active and Suspected Problems (Last Reviewed 07/04/17 @ 09:45 by Patito Love) Acute opioid withdrawal (Acute) - Physical Exam General: Alert, Oriented x3, Cooperative HEENT: Atraumatic, PERRLA, EOMI, Normocephalic Oral: Dry Mucosa Neck: Supple, No JVD, Negative Carotid Bruits Lungs: Clear to auscultation, Normal air movement, No rhonchi, No wheeze, No rales Cardiovascular: Regular rate, Regular Rhythm, Normal S1, Normal S2, No murmurs Abdomen: Bowel Sounds Present, Soft, Non Tender, Non-Distended Extremities: No edema, Capillary Refill Less than 3 Seconds Skin: No rashes, No breakdown, - - Needle track bosch present Musculoskeletal: No Tenderness to Palpation of Joints or Extremities, Arthritic Changes, - - Bilateral TKR Neurological: Cranial nerves II-XII grossly intact Psych/Mental Status: Normal Affect, Appropriate Vital Signs Temp Pulse Resp BP Pulse Ox 97.3 F L 92 18 156/89 H 99 10/08/18 07:49 10/08/18 07:49 10/08/18 07:49 10/08/18 07:49 10/08/18 07:49 Oxygen Delivery Method Room Air Weight: 250 lb Body Mass Index (BMI) 29.6 Assessment/Plan All Active Problems (Last Reviewed 07/04/17 @ 09:45 by Patito Love) Acute opioid withdrawal (Acute) The patient is a 43 year old M with history of chronic substance use heroin, fentanyl along with methamphetamine, crack cocaine use about once or twice a week came to ED for acute withdrawal symptoms. Patient has tremors, restlessness feeling chills and nausea. Patient has history of chronic obstructive sleep but denies HIV. [] 1. Acute opioid withdrawal: Patient is being admitted on MedSurg floor. Started on order set for medical stabilization for opioids. [facility] manager of case management consult. IV fluid Ringer lactate. Labs ordered. CBC and CMP within normal limits. UA negative of pyuria. U tox positive for amphetamine. Alcohol level 4.0. CINA monitoring. 2. Methamphetamine, crack cocaine and benzodiazepines: Counseling advised. 3. Anxiety and depression Bilateral TKR: Stable. DVT prophylaxis: Low risk. Early ambulation encouraged. Code Visit Inpatient E&M: 44478 Init Hosp L2
[2018-10-08] MEDS: Buprenorphine HCl 2 MG TAB.SUBL SL ×2 (10:13→18:10)
[2018-10-08 10:24] LABS: Mucous, Urine 0 SEEN /hpf (<or=2+); Red Blood Cells-Urine 0 SEEN /hpf (0-5); White Blood Cells 0 SEEN /hpf (0-5)
[2018-10-08 10:28] LABS: Absolute Lymphocyte Count 1.91 X10^3/ul (0.83-4.51); Absolute Neutrophil Count 3.1 X10^3/uL (2.0-7.7); Basophil# 0.02 X10^3/uL; Basophil% 0.4 % (0-1); Eosinophil# 0.06 X10^3/uL; Eosinophils% 1.1 % (0-5); Hematocrit 42.3 % (40-54); Hemoglobin 14.4 g/dl (13.0-16.5); Lymphocyte # 1.91 X10^3/ul (4.0); Lymphocyte % 34.4 % (19-41); Mean Corpuscular Hgb 27.7 pg (27.0-32.0); Mean Corpuscular Volume 81.5 fL (80-94); Mean Platelet Vol. 9.4 fl (6.2-12.0); Monocyte# 0.42 X10^3/uL; Monocyte% 7.6 % (0-10); Neutrophil # 3.14 X10^3/uL (2.7-7.7); Neutrophil % 56.3 % (47-70); Platelet Count 205 K/mm3 (150-450); RBC Distribution Width CV 13.7 % (11.6-14.6); RBC Distribution Width SD 40.7 fl (35.1-43.9); Red Blood Count 5.19 M/mm3 (4.6-6.2); White Blood Count 5.6 K/mm3 (4.4-11.0)
[2018-10-08 10:30] LABS: POSITIVE COUNT NO; POSITIVE DIFFERENTIAL NO; POSITIVE MORPHOLOGY NO
[2018-10-08 10:31] LABS: Color, Urine Yellow (Yellow); Glucose, Dipstick Normal (Normal); Ketone-Dipstick 5 mg/dl (Negative); Leukocyte Esterase-Dipstick Negative /ul (Negative); Nitrite-Dipstick Negative (Negative); Occult Blood-Urine Negative /ul (Negative); Protein-Dipstick Negative (Negative); Urine Bilirubin Dipstick Negative (Negative); Urine Clarity Clear (Clear); Urine Urobilinogen Normal (Normal)
[2018-10-08] MEDS: Pramipexole Di-HCl 0.25 MG Tablet PO (10:31)
[2018-10-08] MEDS: Dicyclomine 10 MG Capsule 20 MG PO ×2 (10:31→19:38)
[2018-10-08] MEDS: hydrOXYzine PAM 25 MG Capsule 50 MG PO ×2 (10:32→19:40)
[2018-10-08 10:33] LABS: International Normalized Ratio 1.1; Prothrombin Time (Protime)PT. 14.2 SECONDS (11.7-14.9)
[2018-10-08 10:36] LABS: Amphetamine Urine VISTA POSITIVE (<1000 ng/mL); Barbiturate Urine VISTA NEGATIVE (< 200 ng/mL); Benzodiazepine Urine VISTA NEGATIVE (< 200 ng/mL); Cocaine Urine VISTA NEGATIVE (< 300 ng/mL); Ecstacy Urine VISTA NEGATIVE (< 500 ng/mL); Methadone Urine VISTA NEGATIVE (< 300 ng/mL); PCP Urine VISTA NEGATIVE (< 25 ng/mL); THC Urine VISTA NEGATIVE (< 50 ng/mL); Vista UDS pH Range 6
[2018-10-08 10:38] LABS: Bacteria 1+ /hpf (None Seen); Squamous Epithelial Cells - UA 0-5 SEEN /hpf (0-5)
[2018-10-08] MEDS: 0.9% NaCl Peripheral Flush Adult/Peds IV ×2 (10:38→19:23)
[2018-10-08 10:40] LABS: AST(SGOT) 22 U/L (15-37); Alanine Aminotransfer ALT/SGPT 36 U/L (16-61); Albumin, Serum 3.6 g/dL (3.2-5.0); Alkaline Phosphatase 93 U/L (45-117); Anion Gap 6 (5-15); BUN 9 mg/dL (7-18); BUN/Creat Ratio 13.1 RATIO (10-20); Calcium,Total 8.8 mg/dL (8.5-10.1); Chloride 102 mmol/L (98-107); Creatinine, Serum 0.69 mg/dL (0.70-1.30); EST Glomerular Filtration Rate 134 mL/min (>60); Est Glom Filt Rate - Afr Amer 162 mL/min (>60); Estimated Creatinine Clearance 175.76 ml/min; Globulin 3.7 g/dL (2.2-4.2); Glucose 101 mg/dL (74-106); Potassium 3.9 mmol/L (3.5-5.1); Protein, Total 7.3 g/dL (6.4-8.2); Sodium Level 136 mmol/L (136-145)
[2018-10-08] MEDS: Lactated Ringers 1,000 ML 125 ML IV (10:43)
[2018-10-08] MEDS: chlordiazePOXIDE 25 MG Capsule PO ×2 (11:29→14:09)
[2018-10-08] MEDS: cloNIDine HCl 0.1 MG Tablet PO ×4 (12:10→19:38)
[2018-10-08] MEDS: traZODone 50 MG Tablet PO (13:12)
[2018-10-08] MEDS: Methocarbamol 750 MG Tablet PO ×2 (13:14→19:38)
--- NOTE | 2018-10-08 14:08 | NURSING ---
pt very anxious, thrashing in bed
[2018-10-08] MEDS: Tuberculin,Purif.prot.deriv. 50 TU/ML Vial 5 ML ID (15:06)
[2018-10-08] MEDS: chlordiazePOXIDE 25 MG Capsule 50 MG PO ×3 (15:31→21:36)
--- NOTE | 2018-10-08 15:36 | NEWVISION ---
Patient has re-arranged plan to go to [facility] on 10/10/2018 immediately post discharge to enter into [facility]. [facility] coordinating transportation with [facility].
[2018-10-08] MEDS: hydrOXYzine 50 MG/ML Vial IM (16:46)
[2018-10-08] MEDS: Ibuprofen 600 MG Tablet PO (17:17)
[2018-10-08] MEDS: LORazepam 2 MG/ML Syringe IV (19:23)
[2018-10-08] MEDS: Acetaminophen 500 MG Tablet PO (19:38)
[2018-10-09 01:45] VITALS: BP 129/94; PULSE 77; RESP 20; TEMP 36.7
[2018-10-09] MEDS: Pramipexole Di-HCl 0.25 MG Tablet PO ×2 (01:48→17:57)
[2018-10-09] MEDS: chlordiazePOXIDE 25 MG Capsule 50 MG PO ×3 (01:48→22:11)
[2018-10-09] MEDS: Buprenorphine HCl 2 MG TAB.SUBL SL ×3 (01:48→17:58)
[2018-10-09] MEDS: Acetaminophen 500 MG Tablet PO (03:14)
[2018-10-09 05:41] VITALS: BP 136/94; PULSE 71; RESP 16; TEMP 36.5
[2018-10-09] MEDS: hydrOXYzine PAM 25 MG Capsule 50 MG PO ×2 (08:32→17:57)
--- NOTE | 2018-10-09 08:52 | PCM.PN.HOSP ---
Patient Problems: Active and Suspected Problems (Last Reviewed 07/04/17 @ 09:45 by Patito Love) Acute opioid withdrawal (Acute) Subjective: Patient has vivid dream, visual hallucination, restless and tossing on the bed. Extra dose of trazodone was also given. Librium was increased to 50 mg every 6 hourly with intermittent Ativan. Patient was on methadone 80 mg that was discontinued 5 days ago. Also he takes once or twice a week Xanax 1 to 2 mg, methamphetamine, crack cocaine. Vitals/I&O's: Vital Signs Temp Pulse Resp BP Pulse Ox 97.7 F L 71 16 136/94 H 98 10/09/18 05:41 10/09/18 05:41 10/09/18 05:41 10/09/18 05:41 10/08/18 18:01 Oxygen Delivery Method Room Air Weight: 233 lb 11.04 oz Body Mass Index (BMI) 27.7 Intake and Output for Last 24 Hours 10/07/18 10/08/18 10/09/18 23:59 23:59 23:59 Intake Total 1619 / 1619 Balance 1619 / 1619 General: Confused, Disoriented, Lethargic HEENT: Atraumatic, PERRLA, EOMI, Normocephalic Oral: Dry Mucosa Neck: Supple, No JVD, Negative Carotid Bruits Lungs: Clear to auscultation, Normal air movement, No rhonchi, No wheeze, No rales Cardiovascular: Regular rate, Regular Rhythm, Normal S1, Normal S2, No murmurs Abdomen: Bowel Sounds Present, Soft, Non Tender Extremities: No edema, Capillary Refill Less than 3 Seconds Skin: No rashes, No breakdown Musculoskeletal: No Tenderness to Palpation of Joints or Extremities, Arthritic Changes Neurological: Cranial nerves II-XII grossly intact, Deep Tendon Reflexes 2+/4 and Symmetrical, Neuro grossly intact Psych/Mental Status: Normal Affect, Appropriate Laboratory Results 10/08/18 10:05: Urine Opiates Screen NEGATIVE, Urine Methadone Screen NEGATIVE, Ur Barbiturates Screen NEGATIVE, Ur Phencyclidine Scrn NEGATIVE, Ur Amphetamines Screen POSITIVE H, U Methamphetamin-MDMA NEGATIVE, U Benzodiazepines Scrn NEGATIVE, Urine Cocaine Screen NEGATIVE, U Cannabinoids Screen NEGATIVE, Ur Drug Screen Comment 10/08/18 10:10: Urine Color Yellow, Urine Clarity Clear, Urine pH 6.0, Ur Specific [place] 1.010, Urine Protein Negative, Urine Glucose (UA) Normal, Urine Ketones 5 H, Urine Occult Blood Negative, Urine Nitrite Negative, Urine Bilirubin Negative, Urine Urobilinogen Normal, Ur Leukocyte Esterase Negative, Urine RBC 0 SEEN, Urine WBC 0 SEEN, Ur Squamous Epith Cells 0-5 SEEN, Urine Bacteria 1+, Urine Mucus 0 SEEN 10/08/18 10:15: WBC 5.6, RBC 5.19, Hgb 14.4, Hct 42.3, MCV 81.5, MCH 27.7, MCHC 34.0, RDW 13.7, RDW Differential 40.7, Plt Count 205, MPV 9.4, Immature Gran % (Auto) 0.200, Neut % (Auto) 56.3, Lymph % (Auto) 34.4, Blount % (Auto) 7.6, Eos % (Auto) 1.1, Baso % (Auto) 0.4, Absolute Neuts (auto) 3.1, Absolute Lymphs (auto) 1.91, Total Counted Not Reportable 10/08/18 10:15: PT 14.2, INR 1.1 10/08/18 10:15: Sodium 136, Potassium 3.9, Chloride 102, Carbon Dioxide 28.0, Anion Gap 6, BUN 9, Creatinine 0.69 L, Estim Creat Clear Calc 175.76, Est GFR (MDRD) Af Amer 162, Est GFR (MDRD) Non-Af 134, BUN/Creatinine Ratio 13.1, Glucose 101, Calcium 8.8, Total Bilirubin 0.40, AST 22, ALT 36, Alkaline Phosphatase 93, Total Protein 7.3, Albumin 3.6, Globulin 3.7, Albumin/Globulin Ratio 1.0 10/08/18 10:15: Ethyl Alcohol 4.0 Current Medications Acetaminophen (Tylenol) 500 mg PO Q4H PRN PRN PRN Reason: Temp > 100.4 F Last Admin: 10/09/18 03:14 Dose: 500 mg Documented by: Al Hydroxide/Mg Hydroxide (Mylanta Ii) 30 ml PO Q6H PRN PRN PRN Reason: dyspesia Bisacodyl (Dulcolax) 10 mg RECTAL DAILY PRN PRN Reason: Constipation Buprenorphine HCl (Buprenorphine Hcl) 4 mg SL Q8H NINO; Taper Stop: 10/11/18 14:29 Last Admin: 10/09/18 01:48 Dose: 4 mg Documented by: Chlordiazepoxide (Librium) 50 mg PO Q6H PRN PRN PRN Reason: Moderate-Severe Anxiety Clonidine (Catapres) 0.1 mg PO Q2H PRN PRN PRN Reason: Hot/Cold Sweats or Anxiety Last Admin: 10/08/18 19:38 Dose: 0.1 mg Documented by: Dicyclomine HCl (Bentyl) 20 mg PO Q6H PRN PRN PRN Reason: Abdomnial Discomfort Last Admin: 10/08/18 19:38 Dose: 20 mg Documented by: Hydroxyzine HCl (Vistaril Vial) 50 mg IM Q6H PRN PRN PRN Reason: Breakthrough Anxiety Last Admin: 10/08/18 16:46 Dose: 50 mg Documented by: Hydroxyzine Pamoate (Vistaril Pamoate Capsule) 50 mg PO Q6H PRN PRN PRN Reason: Mild Anxiety Last Admin: 10/09/18 08:32 Dose: 50 mg Documented by: Ibuprofen (Motrin) 600 mg PO Q8H PRN PRN PRN Reason: Mild-Moderate Pain (1-5/10) Last Admin: 10/08/18 17:17 Dose: 600 mg Documented by: Loperamide HCl (Imodium) 2 - 4 mg PO UD PRN PRN Reason: LOOSE STOOLS Lorazepam (Ativan) 2 mg IV Q3H PRN PRN Reason: breakthrough agitation Last Admin: 10/08/18 19:23 Dose: 2 mg Documented by: Lorazepam (Ativan) 1 mg IV Q3H PRN PRN PRN Reason: breakthrough agitation, mild Methocarbamol (Methocarbamol) 750 mg PO Q6H PRN PRN PRN Reason: Muscle Aches Last Admin: 10/08/18 19:38 Dose: 750 mg Documented by: Nicotine (Nicoderm Cq (Pbkc)) 21 mg TRANSDERM. DAILY NINO Last Admin: 10/08/18 10:13 Dose: 21 mg Documented by: Ondansetron HCl (Zofran Odt) 4 mg PO Q6H PRN PRN PRN Reason: NAUSEA Pramipexole Dihydrochloride (Mirapex) 0.25 mg PO Q12H PRN PRN PRN Reason: Restless Legs Last Admin: 10/09/18 01:48 Dose: 0.25 mg Documented by: Senyuridia (Senokot) 1 tablet PO QHS PRN PRN Reason: Constipation Sodium Chloride () 5 - 15 ml IV UD PRN PRN Reason: SALINE FLUSH Last Admin: 10/08/18 19:23 Dose: 10 ml Documented by: Trazodone HCl (Desyrel) 50 mg PO QHS NINO Last Admin: 10/08/18 21:36 Dose: Not Given Documented by: Medical Necessity - Tobacco Use Smoking Status: Current every day smoker Assessment/Plan All Active Problems (Last Reviewed 07/04/17 @ 09:45 by Patito Love) Acute opioid withdrawal (Acute) The patient is a 43 year old M with history of chronic substance use heroin, fentanyl along with methamphetamine, crack cocaine use about once or twice a week came to ED for acute withdrawal symptoms. Patient has tremors, restlessness feeling chills and nausea. Patient has history of chronic obstructive sleep but denies HIV. [facility]. [] 1. Acute opioid withdrawal: Patient has severe withdrawal symptoms including vivid dreams, visual hallucinations and restlessness. Started on order set for medical stabilization for opioids. [facility] case management specialist consult. IV fluid Ringer lactate. CBC and CMP within normal limits. UA negative of pyuria. U tox positive for amphetamine. Alcohol level 4.0. CINA 6-8. Withdrawal symptoms are worse after sudden discontinuation of methadone about 5 days ago 2. Methamphetamine, crack cocaine and benzodiazepines: Counseling advised. 3. Anxiety and depression Bilateral TKR: Stable. DVT prophylaxis: Low risk. Early ambulation encouraged. Code Visit Inpatient E&M: 01362 Subs Hosp L3
[2018-10-09 09:59] VITALS: BP 138/91; PULSE 89; RESP 18; TEMP 36.7
--- NOTE | 2018-10-09 12:14 | NURSING ---
Dr. Atkins aware that [facility] will only be able to admit patient on around 1500. states he will discharge patient before that time.
[2018-10-09 17:50] VITALS: BP 149/98; PULSE 96; RESP 18; TEMP 37.2
[2018-10-09 22:00] VITALS: BP 136/101; PULSE 94; RESP 18; TEMP 36.4
[2018-10-09] MEDS: traZODone 50 MG Tablet PO (22:11)
[2018-10-09] MEDS: Ibuprofen 600 MG Tablet PO (22:11)
[2018-10-09] MEDS: cloNIDine HCl 0.1 MG Tablet PO (22:11)
[2018-10-10 02:35] VITALS: BP 141/93; PULSE 77; RESP 18; TEMP 36.6
[2018-10-10] MEDS: Buprenorphine HCl 2 MG TAB.SUBL SL ×2 (02:38→13:56)
--- NOTE | 2018-10-10 09:04 | NEWVISION ---
Patient has D/C plan to move into [facility]. manager operating to case picker patient at 3pm at the main entrance of [facility].
--- NOTE | 2018-10-10 09:57 | DCINST_ITS ---
- Discharge Diagnoses Current Active Problems: Current Active and Chronic Problems (Last Reviewed 07/04/17 @ 09:45 by Patito Love) Acute opioid withdrawal (Acute) Polysubstance dependence including opioid type drug, continuous use (Chronic) Benzodiazepine use and dependence (Chronic) Amphetamine use disorder, moderate, dependence (Chronic) You will use the following diet at home:: Regular Your food should be the consistency of: Regular Discharge Activity: May Not Drive Weight Bearing Status: Weight bearing as tolerated Call your doctor if you observe: Fever of 101 or Higher, Coldness, Increased Pain, Numbness or Tingling, Inability to urinate, Inability to have a bowel movement, Dizziness, Swelling in the ankles, Chest pain, Prolonged hiccoughing, Increased palpitations (irregular heartbeat), Calf discomfort, Uncontrolled pain Allergies/Adverse Reactions: Allergies No Known Allergies Allergy (Verified 10/08/18 08:40) Medications to take at Discharge Nicotine [Nicoderm Cq] 21 mg TRANSDERM. DAILY patch 10/10/18 Primary Care Physician: Peggy Jeffrey NP-C [Primary Care Provider] - Please follow up with your Primary Care Physician in: in 1-2 week Test Results: Test results from this visit will be discussed in further detail at your follow- up appointment, if applicable.
--- NOTE | 2018-10-10 09:58 | PCM.DC.SUM ---
Discharge Date and Diagnosis Date of Admission: 10/08/18 Date of Discharge: 10/10/18 - Primary Discharge Diagnosis Active and Suspected Problems (Last Reviewed 07/04/17 @ 09:45 by Patito Love) Acute opioid withdrawal (Acute) - Secondary Discharge Diagnosis Chronic Problems (Last Reviewed 07/04/17 @ 09:45 by Patito Love) Polysubstance dependence including opioid type drug, continuous use (Chronic) Benzodiazepine use and dependence (Chronic) Amphetamine use disorder, moderate, dependence (Chronic) Hospital Course and Treatment Summary of Care Provided: [] The patient is a 43 year old M with history of chronic substance use heroin, fentanyl along with methamphetamine, crack cocaine use about once or twice a week came to ED for acute withdrawal symptoms. Patient has tremors, restlessness feeling chills and nausea. Patient has history of chronic obstructive sleep but denies HIV. [facility]. [] 1. Acute opioid withdrawal: Patient has severe withdrawal symptoms including vivid dreams, visual hallucinations and restlessness. Started on order set for medical stabilization for opioids. [facility] case management director consult. IV fluid Ringer lactate. CBC and CMP within normal limits. UA negative of pyuria. U tox positive for amphetamine. Alcohol level 4.0. CINA 6-8. Withdrawal symptoms are worse after sudden discontinuation of methadone about 5 days ago and required significant dose of Librium 50 mg 6 hourly and intermittent Ativan and trazodone. beverage manager [facility] assessed the patient and patient is going to be transferred to inpatient drug rehab. Agitation, restlessness and anxiety is better controlled. 2. Methamphetamine, crack cocaine and benzodiazepines: Counseling advised. 3. Anxiety and depression Bilateral TKR: Stable. DVT prophylaxis: Low risk. Early ambulation encouraged. Discharge medication reconciliation done. - Physical Exam General: Alert, Oriented x3, Cooperative, Lethargic, - - Sometimes gets restless HEENT: Atraumatic, PERRLA, EOMI, Normocephalic Oral: Moist Mucosa Neck: Supple, No JVD, Negative Carotid Bruits Lungs: Clear to auscultation, Normal air movement Cardiovascular: Regular rate, Regular Rhythm, Normal S1, Normal S2, No murmurs Abdomen: Bowel Sounds Present, Soft, Non Tender, Non-Distended Extremities: No edema, Capillary Refill Less than 3 Seconds Skin: No rashes, No breakdown Musculoskeletal: No Tenderness to Palpation of Joints or Extremities Lymphatic: No Cervical, Supraclavicular, or Inguinal Adenopathy Neurological: Cranial nerves II-XII grossly intact, Neuro grossly intact Psych/Mental Status: Normal Affect, Appropriate Vital Signs Temp Pulse Resp BP Pulse Ox 97.9 F 77 18 141/93 H 98 10/10/18 02:35 10/10/18 02:35 10/10/18 02:35 10/10/18 02:35 10/08/18 18:01 Oxygen Delivery Method Room Air Weight: 233 lb 11.04 oz Body Mass Index (BMI) 27.7 Intake and Output for Last 24 Hours 10/08/18 10/09/18 10/10/18 23:59 23:59 23:59 Intake Total 1619 / 1619 Balance 1619 / 1619 Discharge Activity: May Not Drive Weight Bearing Status: Weight bearing as tolerated Call your doctor if you observe: Fever of 101 or Higher, Coldness, Increased Pain, Numbness or Tingling, Inability to urinate, Inability to have a bowel movement, Dizziness, Swelling in the ankles, Chest pain, Prolonged hiccoughing, Increased palpitations (irregular heartbeat), Calf discomfort, Uncontrolled pain Home Medications: Medications to take at Discharge Nicotine [Nicoderm Cq] 21 mg TRANSDERM. DAILY patch 10/10/18 Primary Care Physician: Peggy Jeffrey NP-C [Primary Care Provider] - Please follow up with your Primary Care Physician in: in 1-2 week Medical Necessity - Tobacco Use Smoking Status: Current every day smoker Meaningful Use Info Meaningful Use Diagnoses (Choose all that apply): None applicable Code Visit Inpatient E&M: 73242 Disch Hosp
[2018-10-10 10:00] VITALS: BP 129/93; PULSE 75; RESP 16; TEMP 36.7
== END 2018-10-10 14:46 | disposition home or self-care (01) | DRG 773 ==
LOC: ED 08:14 → MS2 09:22
PROVIDERS: Admitting Provider Internal Medicine; Emergency Provider Emergency Medicine; Family Provider Nurse Practitioner Family; PCP Nurse Practitioner Family; Referring Provider Internal Medicine; Visit Provider Internal Medicine
DX: F11.23 Opioid dependence with withdrawal (principal); Z96.653 Presence of artificial knee joint, bilateral; F32.9 Major depressive disorder, single episode, unspecified; F41.9 Anxiety disorder, unspecified; F17.200 Nicotine dependence, unspecified, uncomplicated; F15.20 Other stimulant dependence, uncomplicated; F13.20 Sedative, hypnotic or anxiolytic dependence, uncomplicated
CPT/HCPCS: 36415; 80053; 80307; 80320; 81001; 85025; 85610; 99283; 99406; J7120; A4216; G0480

== ENCOUNTER 2019-03-31 08:58 | Observation (INO) | payer MEDICAID, SELFPAY ==
[2018-10-08 09:31] VITALS: BMI 27.7
[2019-03-31 08:59] VITALS: BP 160/85; PULSE 81; RESP 15; TEMP 36.6; O2SAT 98; BMI 29.0
--- NOTE | 2019-03-31 09:36 | ED.DCSUM_ITS ---
- ER Visit Summary Date of Service: 03/31/19 Chief Complaint: Requesting detox for fentanyl and heroin abuse History of Present Illness: The patient is a 44 M 3 of IV heroin and fentanyl abuse with hepatitis C. Patient is requesting detox. He denies any other complaints. Physical Examination: Middle-aged male no acute distress vital signs stable afebrile. HEENT exam unremarkable. Neck nontender. Lungs clear to auscultation bilaterally. Heart regular rate and rhythm no murmur. Abdomen soft nontender normal bowel sounds no peritoneal signs. Remedies moves all 4. Right knee is nontender. Small effusion has had a prior knee replacement. It is not red or septic. He has normal range of motion to his extremities. Neurologically is awake and alert with no focal motor deficits. Test Results: None Emergency Department Course and Treatment: Patient requesting detox I will speak to the hospitalist about admission. Treatment Plan: [] Disposition: Admission Impression: History of drug abuse including heroin and fentanyl History of hepatitis C Requesting detox This note was generated with [email or web address] dictation software. It may contain incorrect words, spelling, and punctuation that were not noted in review of the chart prior to signing ED Disposition - Plan for ED Patient: Referrals: Peggy Jeffrey, LUCY-C [Primary Care Provider] -
[2019-03-31 10:51] VITALS: BMI 28.9
[2019-03-31 11:00] VITALS: BP 138/99; PULSE 68; RESP 18; TEMP 36.5; O2SAT 99
--- NOTE | 2019-03-31 12:00 | HP.PCM_ITS ---
Problem List (1) Acute opioid withdrawal Status: Acute (2) Polysubstance dependence including opioid type drug, continuous use Status: Chronic (3) Benzodiazepine use and dependence Status: Chronic (4) Amphetamine use disorder, moderate, dependence Status: Chronic History of Present Illness Date of Admission: 03/31/19 Chief Complaint: Requesting admission for medical stabilization for acute opiate withdrawal. The patient is a 44 year old M with past medical history as mentioned above presented to the emergency room requesting admission for medical stabilization for acute opioid withdrawal. Patient was admitted back on September, for acute opiate withdrawal and was discharged after 3 days, remained sober without drug use for 6 weeks and he relapsed since then. He has been using IV fentanyl and heroin on a daily basis. 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 His main presenting complaint as restlessness and anxiety which is all over, affecting both upper and lower extremities, associated with cold and hot flashes and without aggravating or relieving factors. Also, he complained of intermittent mild abdominal pain described as colics with minimal nausea without vomiting. He thinks that he may broke a needle in his right forearm after injection couple days ago. In the emergency department, his blood pressure was slight elevated, other vital signs were stable. No routine blood work was done today and his previous blood work from September, was unremarkable. He is being admitted for acute opiate withdrawal for medical stabilization. Past Medical History Past Medical History (Chronic Problems): Chronic Problems (Last Reviewed 07/04/17 @ 09:45 by Patito Lvoe) Polysubstance dependence including opioid type drug, continuous use (Chronic) Benzodiazepine use and dependence (Chronic) Amphetamine use disorder, moderate, dependence (Chronic) Allergies No Known Allergies Allergy (Verified 03/31/19 09:01) Home Medications: Ambulatory Orders Medication Instructions Recorded Buprenorphine HCl/Naloxone HCl 1 tab SL DAILY 03/31/19 [Zubsolv 11.4-2.9 mg Tablet Sl] Surgical History: Surgical History (Last Updated 07/04/17 @ 09:46 by Patito Love) S/P left knee surgery Z98.890 ACL meniscus repair 2009 Surgical History: - - Anterior cruciate ligament repair 2008, and Mouth surgery 2006 Psychiatric History: Anxiety Smoking Status: Current every day smoker Tobacco Use: Cigarettes Alcohol: None Drugs: Heroin, - - Fentanyl, amphetamines. - *Family History Maternal History Items: - - Depression Paternal History Items: No pertinent history Review of Systems Constitutional: Denies: Anorexia, Chills, Fever, Weakness Eyes: Denies: Blurred vision, Double vision, Drainage, Redness HEENT: Denies: Difficulty Hearing, Ear Pain, Eye Pain, Nasal Congestion, Sore Throat Cardiovascular: Denies: Chest Pain, Chest Pressure, Chest Tightness, Heaviness, Light Headedness, Palpitations, Syncope Respiratory: Denies: Cough, Pleuritic Pain, Shortness of Breath, Sputum production, Wheezing Gastrointestinal: Reports: Nausea. Denies: Abdominal Pain, Constipation, Diarrhea, Vomiting Genitourinary: Denies: Dysuria, Frequency, Hematuria Musculoskeletal: Denies: Arm Pain, Back Pain, Foot Pain Skin: Denies: Dryness, Rash Neurological: Denies: Balance problems, Blurred vision, Double vision, Change in Speech, Headaches, Incoordination, Numbness Psychiatric: Reports: Anxiety. Denies: Depression Endocrine: Denies: Change in Body Habitus, Polydipsia, Polyuria VTE Information - Inpt Only VTE Present on Admission: No VTE Mechan Device Prophylaxis: None VTE Pharm Prophylaxis ordered?: No - Physical Exam Vitals/I&O's: Vital Signs Temp Pulse Resp BP Pulse Ox 97.7 F L 68 18 138/99 H 99 03/31/19 11:00 03/31/19 11:00 03/31/19 11:00 03/31/19 11:00 03/31/19 11:00 Oxygen Delivery Method Room Air Weight: 244 lb Body Mass Index (BMI) 28.9 General: Alert, Oriented x3, Cooperative, No apparent distress HEENT: Atraumatic, PERRLA, EOMI, Normocephalic Oral: Moist Mucosa, No Gingival or Mucosal Lesions/ Ulcerations Neck: Supple, No JVD, Negative Carotid Bruits, Trachea Midline, Thyroid Normal Size and Texture Lungs: Clear to auscultation, Normal air movement, No rhonchi, No wheeze, No rales Cardiovascular: Regular rate, Regular Rhythm, Normal S1, Normal S2, PMI Normal Abdomen: Bowel Sounds Present, Soft, Non Tender, Non-Distended, No Hepato- splenomegaly Extremities: No clubbing, No cyanosis, No edema, - - Puncture sites on the right forearm. No evidence of infection or abscesses. Skin: No rashes, No breakdown Lymphatic: No Cervical, Supraclavicular, or Inguinal Adenopathy Neurological: Cranial nerves II-XII grossly intact, Motor Exam 5/5 strength throughout Psych/Mental Status: Normal Affect, Appropriate, Anxious, Alert and oriented to time, place, person, mood and affect Current Medications Sodium Chloride () 10 - 40 ml IV UD PRN PRN Reason: SALINE FLUSH Assessment/Plan All Active Problems (Last Reviewed 07/04/17 @ 09:45 by Patito Love) Acute opioid withdrawal (Acute) This is a 44 years old male patient presented to the emergency room requesting admission for acute opioid withdrawal needing medical stabilization. #1 acute opiate withdrawal: Patient relapsed after is remained sober for 6 weeks on September,. He has been using IV fentanyl and heroin, occasional methamphetamines as well as benzos. Last use of IV fentanyl was this morning. He thinks that he may broken needle onto his right forearm after injecting IV fentanyl which was couple of days ago. Plan: Admit to [facility] floor, initiate acute opioid withdrawal protocol with tapering course of Subutex, tapering course of Librium because patient thinks that Librium helped him last time and he has been using benzos intermittently, PRN Tylenol, Catapres, Bentyl, Vistaril, Imodium, methocarbamol, Zofran, Mirapex and trazodone nightly, blood alcohol level, urine drug screen, x-ray of the right forearm to rule out foreign body. #2 polysubstance abuse: Patient has been using IV fentanyl, heroin, occasional to vitamins and benzos. His main use is IV fentanyl. Plan as above. #3 anxiety: Currently not on any medications. Plan as above. #4 tobacco abuse: NicoDerm patch. #5 DVT prophylaxis: Low risk patient, ambulate. This note was generated with [employer] dictation software. It may contain incorrect words, spelling, and punctuation that were not noted in checking the note before signing. Code Visit Inpatient E&M: 79606 Init Hosp L2
--- NOTE | 2019-03-31 12:06 | RAD_ITS ---
STUDY: X-RAY - RIGHT WRIST REASON FOR EXAM: Male, 44 years old. Possible radiopaque foreign body. TECHNIQUE: AP and lateral view(s) of the wrist were obtained. COMPARISON: None. FINDINGS: Normal visualized distal radius and ulna. Normal radiocarpal articulation. Normal distal radioulnar articulation. Normal carpal bones. Normal carpal articulations. Normal carpometacarpal articulation of the thumb. Normal second through fifth carpometacarpal articulations. Normal visualized metacarpal bones. The soft tissue structures are unremarkable. No radiopaque foreign body is seen. RAD/Wrist 2 Views IMPRESSION: Normal x-ray examination of the wrist. Electronically Signed: Alexis Cabrera, at 14:39 EST , Service support ,
[2019-03-31 15:00] VITALS: BP 130/90; PULSE 88; RESP 16; TEMP 36.9; O2SAT 98
[2019-03-31] MEDS: Ondansetron ODT 4 MG Tablet PO ×2 (15:23→23:29)
[2019-03-31] MEDS: Pramipexole Di-HCl 0.25 MG Tablet PO (15:24)
[2019-03-31] MEDS: Dicyclomine 10 MG Capsule 20 MG PO ×2 (15:24→23:59)
[2019-03-31] MEDS: Methocarbamol 750 MG Tablet PO ×2 (15:24→23:30)
[2019-03-31] MEDS: cloNIDine HCl 0.1 MG Tablet PO ×2 (15:24→20:25)
[2019-03-31] MEDS: hydrOXYzine PAM 25 MG Capsule 50 MG PO ×2 (15:26→21:39)
--- NOTE | 2019-03-31 17:05 | CHAPLAIN ---
Type of Pastoral Visit _x__ Initial Visit ___ Follow-up Visit ___ On-call Visit ___ General Patient Visit ___ Spiritual Assessment ___ Family Conference ___ Bereavement ___ Rapid Response ___ Code Blue ___ Other (describe below) Pastoral Care Referral From _x__ Patient ___ Family ___ Nurse ___ Physician ___ Bench Grinder ___ Cabinet Abrasive Sandblaster ___ Other (describe below) Sacrament/Intervention _x__ Active listening ___ Anointing ___ Mandaen ___ Bereavement ___ Communion _x__ Heavenly exploration ___ _x__ Life review _x__ Prayer ___ Reconciliation ___ Sacrament of Sick _x__ Supportive presence ___ Wedding ___ Other (describe below) Pastoral Comments patient was welcoming of visit and prayers; pt requested information on rehab facilities with a heavenly based perspective; pt attends a Gnosticism faith with his brother occasionally and seeks spiritual support during this admission
[2019-03-31] MEDS: Buprenorphine HCl 2 MG TAB.SUBL SL (17:37)
[2019-03-31] MEDS: chlordiazePOXIDE 25 MG Capsule PO ×2 (17:37→23:11)
[2019-03-31 19:00] VITALS: BP 135/91; PULSE 80; RESP 16; TEMP 36.6; O2SAT 99
[2019-03-31 20:21] VITALS: BP 148/93; PULSE 83; RESP 16; O2SAT 97
[2019-03-31 21:48] LABS: Amphetamine Urine VISTA POSITIVE (<1000 ng/mL); Barbiturate Urine VISTA NEGATIVE (< 200 ng/mL); Benzodiazepine Urine VISTA NEGATIVE (< 200 ng/mL); Cocaine Urine VISTA NEGATIVE (< 300 ng/mL); Ecstacy Urine VISTA NEGATIVE (< 500 ng/mL); Methadone Urine VISTA NEGATIVE (< 300 ng/mL); PCP Urine VISTA NEGATIVE (< 25 ng/mL); THC Urine VISTA NEGATIVE (< 50 ng/mL); Vista UDS pH Range 7
[2019-03-31] MEDS: Acetaminophen 500 MG Tablet PO (23:30)
[2019-03-31 23:32] VITALS: BP 129/91; PULSE 72; RESP 18; TEMP 36.5; O2SAT 97
[2019-04-01 03:04] VITALS: BP 128/89; PULSE 75; RESP 18; TEMP 36.4; O2SAT 96
[2019-04-01] MEDS: Buprenorphine HCl 2 MG TAB.SUBL SL ×3 (03:06→18:02)
[2019-04-01] MEDS: Pramipexole Di-HCl 0.25 MG Tablet PO (03:41)
[2019-04-01] MEDS: cloNIDine HCl 0.1 MG Tablet PO ×3 (03:41→13:57)
[2019-04-01] MEDS: chlordiazePOXIDE 25 MG Capsule PO ×3 (05:29→23:09)
[2019-04-01 07:36] VITALS: BP 136/86; PULSE 65; RESP 18; TEMP 36.5; O2SAT 96
[2019-04-01] MEDS: Methocarbamol 750 MG Tablet PO (07:40)
[2019-04-01] MEDS: hydrOXYzine PAM 25 MG Capsule 50 MG PO ×2 (07:42→13:59)
--- NOTE | 2019-04-01 09:04 | PN_ITS ---
Subjective: Chief complaint: Follow-up after admission for acute opioid withdrawal. Patient seen and examined. No acute events overnight. This morning, he is restless, anxious with restless legs. He mentioned that he could not sleep last night all night. Denied abdominal pain, cramps. Denied fever or chills. His vital signs are stable. - Physical Exam Vitals/I&O's: Vital Signs Temp Pulse Resp BP Pulse Ox 97.7 F L 65 18 136/86 H 96 04/01/19 07:36 04/01/19 07:36 04/01/19 07:36 04/01/19 07:36 04/01/19 07:36 Oxygen Delivery Method Room Air Weight: 244 lb Body Mass Index (BMI) 28.9 Intake and Output for Last 24 Hours 03/30/19 03/31/19 04/01/19 23:59 23:59 23:59 Intake Total 600 / 600 Balance 600 / 600 General: Alert, Oriented x3, Cooperative, - - Restless, anxious. HEENT: Atraumatic, PERRLA, EOMI, Normocephalic Oral: Moist Mucosa, No Gingival or Mucosal Lesions/ Ulcerations Neck: Supple, No JVD, Negative Carotid Bruits, Trachea Midline, Thyroid Normal Size and Texture Lungs: Clear to auscultation, Normal air movement, No rhonchi, No wheeze, No rales Cardiovascular: Regular rate, Regular Rhythm, Normal S1, Normal S2, No murmurs Abdomen: Bowel Sounds Present, Soft, Non Tender, Non-Distended, No Hepato- splenomegaly Extremities: No clubbing, No cyanosis, No edema Skin: No rashes, No breakdown Lymphatic: No Cervical, Supraclavicular, or Inguinal Adenopathy Neurological: Cranial nerves II-XII grossly intact, Motor Exam 5/5 strength throughout Psych/Mental Status: Anxious, Restless, Alert and oriented to time, place, person, mood and affect Laboratory Results 03/31/19 12:15: Ethyl Alcohol 4.0 03/31/19 21:17: Urine Opiates Screen NEGATIVE, Urine Methadone Screen NEGATIVE, Ur Barbiturates Screen NEGATIVE, Ur Phencyclidine Scrn NEGATIVE, Ur Amphetamines Screen POSITIVE H, U Methamphetamin-MDMA NEGATIVE, U Benzodiazepines Scrn NEGATIVE, Urine Cocaine Screen NEGATIVE, U Cannabinoids Screen NEGATIVE, Ur Drug Screen Comment Current Medications Acetaminophen (Tylenol) 500 mg PO Q4H PRN PRN PRN Reason: Pain or Fever Last Admin: 03/31/19 23:30 Dose: 500 mg Documented by: Al Hydroxide/Mg Hydroxide (Mylanta Ii) 30 ml PO Q6H PRN PRN PRN Reason: dyspesia Buprenorphine HCl (Buprenorphine Hcl) 4 mg SL Q8H NINO; Taper Stop: 04/03/19 14:14 Last Admin: 04/01/19 03:06 Dose: 4 mg Documented by: Chlordiazepoxide (Librium) 50 mg PO Q8H NINO; Taper Stop: 04/03/19 13:59 Last Admin: 04/01/19 05:29 Dose: 50 mg Documented by: Clonidine (Catapres) 0.1 mg PO Q2H PRN PRN PRN Reason: Hot/Cold Sweats or Anxiety Last Admin: 04/01/19 07:40 Dose: 0.1 mg Documented by: Dicyclomine HCl (Bentyl) 20 mg PO Q6H PRN PRN PRN Reason: Abdomnial Discomfort Last Admin: 03/31/19 23:59 Dose: 20 mg Documented by: Hydroxyzine Pamoate (Vistaril Pamoate Capsule) 50 mg PO Q6H PRN PRN PRN Reason: Mild Anxiety Last Admin: 04/01/19 07:42 Dose: 50 mg Documented by: Loperamide HCl (Imodium) 2 - 4 mg PO UD PRN PRN Reason: LOOSE STOOLS Methocarbamol (Methocarbamol) 750 mg PO Q6H PRN PRN PRN Reason: Muscle Aches Last Admin: 04/01/19 07:40 Dose: 750 mg Documented by: Nicotine (Nicoderm Cq (Pbkc)) 21 mg TRANSDERM. DAILY NINO Last Admin: 03/31/19 15:14 Dose: 21 mg Documented by: Ondansetron HCl (Zofran Odt) 4 mg PO Q6H PRN PRN PRN Reason: NAUSEA Last Admin: 03/31/19 23:29 Dose: 4 mg Documented by: Pramipexole Dihydrochloride (Mirapex) 0.25 mg PO Q12H PRN PRN PRN Reason: Restless Legs Last Admin: 04/01/19 03:41 Dose: 0.25 mg Documented by: Sodium Chloride () 10 - 40 ml IV UD PRN PRN Reason: SALINE FLUSH Trazodone HCl (Desyrel) 50 mg PO QHS [facility] Last Admin: 03/31/19 21:25 Dose: Not Given Documented by: Medical Necessity - Tobacco Use Smoking Status: Current every day smoker Tobacco Use: Cigarettes Assessment/Plan All Active Problems (Last Reviewed 07/04/17 @ 09:45 by Patito Love) Acute opioid withdrawal (Acute) This is a 44 years old male patient presented to the emergency room requesting admission for acute opioid withdrawal needing medical stabilization. #1 acute opiate withdrawal: He is on tapering course of Subutex and Librium as well as as needed Tylenol, Catapres, Bentyl, Vistaril, methocarbamol, Zofran, Mirapex and trazodone. He is still symptomatic, restless, anxious. Nursing staff reported that patient received all of his medications this morning. His vital signs are stable. Urine drug screen is positive for amphetamines. Blood alcohol level is 4. X-ray of the right wrist/forearm showed no foreign bodies. Plan to continue same treatment. #2 polysubstance abuse: Patient has been using IV fentanyl, heroin, occasional to vitamins and benzos. His main use is IV fentanyl. Plan as above. #3 anxiety: Currently not on any medications. Plan as above. #4 tobacco abuse: NicoDerm patch. #5 DVT prophylaxis: Low risk patient, ambulate. This note was generated with [employer] dictation software. It may contain incorrect words, spelling, and punctuation that were not noted in checking the note before signing. Code Visit Inpatient E&M: 98574 Subs Hosp L2
--- NOTE | 2019-04-01 11:26 | CASEMGMT ---
Social Work Note Pt is at [facility] for Opiate detox. SW met with pt and introduced self and role at [facility]. Pt is alert and orientated x3. Pt states that he plans on going to his brothers home at discharge. SW asked pt about going somewhere for counseling/rehab, etc. Pt states that he has been to [facility] before and plans on going there at discharge. SW educated pt on walk in assessment days and times. Pt states that he is aware of walk in days and times. SW did provide pt with additional resources for rehabilitation/counseling/therapy. Pt denied additional needs or concerns at this time. Plan: [facility] at discharge Marielle Bright TAILERCPA, SEWING ROOM SUPERVISOR
[2019-04-01 13:55] VITALS: BP 134/90; PULSE 74; RESP 16; TEMP 36.4; O2SAT 100
[2019-04-01 23:00] VITALS: BP 119/90; PULSE 95; RESP 18; TEMP 36.6; O2SAT 100
[2019-04-02] MEDS: Buprenorphine HCl 2 MG TAB.SUBL SL ×2 (02:54→14:56)
[2019-04-02 02:56] VITALS: BP 112/76; PULSE 70; RESP 18; TEMP 36.6; O2SAT 97
[2019-04-02] MEDS: chlordiazePOXIDE 25 MG Capsule PO ×3 (05:56→21:45)
[2019-04-02] MEDS: Methocarbamol 750 MG Tablet PO ×2 (07:30→14:56)
[2019-04-02] MEDS: hydrOXYzine PAM 25 MG Capsule 50 MG PO ×2 (07:30→14:57)
[2019-04-02 07:33] VITALS: BP 129/85; PULSE 70; RESP 18; TEMP 36.5; O2SAT 96
--- NOTE | 2019-04-02 08:58 | PCM.PROGNOTE ---
Subjective: Chief complaint: Follow-up after admission for acute opiate withdrawal. Patient seen and examined. No acute events overnight. This morning, he was sleepy. He mentioned that he was able to sleep last night. Anxiety and restlessness are improving and he feels better. His vital signs are stable. - Physical Exam Vitals/I&O's: Vital Signs Temp Pulse Resp BP Pulse Ox 97.7 F L 70 18 129/85 H 96 04/02/19 07:33 04/02/19 07:33 04/02/19 07:33 04/02/19 07:33 04/02/19 07:33 Oxygen Delivery Method Room Air Weight: 244 lb Body Mass Index (BMI) 28.9 Intake and Output for Last 24 Hours 03/31/19 04/01/19 04/02/19 23:59 23:59 23:59 Intake Total 600 / 600 Balance 600 / 600 General: Alert, Oriented x3, Cooperative, No apparent distress HEENT: Atraumatic, PERRLA, EOMI, Normocephalic Oral: Moist Mucosa, No Gingival or Mucosal Lesions/ Ulcerations Neck: Supple, No JVD, Negative Carotid Bruits, Trachea Midline, Thyroid Normal Size and Texture Lungs: Clear to auscultation, Normal air movement, No rhonchi, No wheeze, No rales Cardiovascular: Regular rate, Regular Rhythm, Normal S1, Normal S2, PMI Normal Abdomen: Bowel Sounds Present, Soft, Non Tender, Non-Distended, No Hepato-splenomegaly Extremities: No clubbing, No cyanosis, No edema Skin: No rashes, No breakdown Lymphatic: No Cervical, Supraclavicular, or Inguinal Adenopathy Neurological: Cranial nerves II-XII grossly intact, Neuro grossly intact Psych/Mental Status: Normal Affect, Appropriate, Alert and oriented to time, place, person, mood and affect Current Medications Acetaminophen (Tylenol) 500 mg PO Q4H PRN PRN PRN Reason: Pain 1-10 or Fever Last Admin: 03/31/19 23:30 Dose: 500 mg Documented by: Al Hydroxide/Mg Hydroxide (Mylanta Ii) 30 ml PO Q6H PRN PRN PRN Reason: dyspesia Buprenorphine HCl (Buprenorphine Hcl) 2 mg SL Q12H NINO; Taper Stop: 04/03/19 14:14 Last Admin: 04/02/19 02:54 Dose: 2 mg Documented by: Chlordiazepoxide (Librium) 50 mg PO Q8H NINO; Taper Stop: 04/03/19 13:59 Last Admin: 04/02/19 05:56 Dose: 50 mg Documented by: Clonidine (Catapres) 0.1 mg PO Q2H PRN PRN PRN Reason: Hot/Cold Sweats or Anxiety Last Admin: 04/01/19 13:57 Dose: 0.1 mg Documented by: Dicyclomine HCl (Bentyl) 20 mg PO Q6H PRN PRN PRN Reason: Abdomnial Discomfort Last Admin: 03/31/19 23:59 Dose: 20 mg Documented by: Hydroxyzine Pamoate (Vistaril Pamoate Capsule) 50 mg PO Q6H PRN PRN PRN Reason: Mild Anxiety Last Admin: 04/02/19 07:30 Dose: 50 mg Documented by: Loperamide HCl (Imodium) 2 - 4 mg PO UD PRN PRN Reason: LOOSE STOOLS Methocarbamol (Methocarbamol) 750 mg PO Q6H PRN PRN PRN Reason: Muscle Aches Last Admin: 04/02/19 07:30 Dose: 750 mg Documented by: Nicotine (Nicoderm Cq (Pbkc)) 21 mg TRANSDERM. DAILY NINO Last Admin: 04/01/19 10:36 Dose: 21 mg Documented by: Ondansetron HCl (Zofran Odt) 4 mg PO Q6H PRN PRN PRN Reason: NAUSEA Last Admin: 03/31/19 23:29 Dose: 4 mg Documented by: Pramipexole Dihydrochloride (Mirapex) 0.25 mg PO Q12H PRN PRN PRN Reason: Restless Legs Last Admin: 04/01/19 03:41 Dose: 0.25 mg Documented by: Sodium Chloride () 10 - 40 ml IV UD PRN PRN Reason: SALINE FLUSH Trazodone HCl (Desyrel) 50 mg PO QHS NINO Last Admin: 04/01/19 23:09 Dose: Not Given Documented by: Medical Necessity - Tobacco Use Smoking Status: Current every day smoker Tobacco Use: Cigarettes Assessment/Plan All Active Problems (Last Reviewed 07/04/17 @ 09:45 by Patito Love) Acute opioid withdrawal (Acute) This is a 44 years old male patient presented to the emergency room requesting admission for acute opioid withdrawal needing medical stabilization. #1 acute opiate withdrawal: Remained on tapering course of Subutex and Librium as well as as needed Tylenol, Catapres, Bentyl, Vistaril, methocarbamol, Zofran, Mirapex and trazodone. Symptoms started to improve, has been able to sleep and he is not less anxious and irritable. His vital signs are stable. Urine drug screen is positive for amphetamines. Blood alcohol level is 4. X-ray of the right wrist/forearm showed no foreign bodies. Plan to continue same treatment, discharge home tomorrow, follow-up with 180 program. #2 polysubstance abuse: Patient has been using IV fentanyl, heroin, occasional to vitamins and benzos. His main use is IV fentanyl. Plan as above. #3 anxiety: Currently not on any medications. Plan as above. #4 tobacco abuse: NicoDerm patch. #5 DVT prophylaxis: Low risk patient, ambulate. This note was generated with [employer] dictation software. It may contain incorrect words, spelling, and punctuation that were not noted in checking the note before signing. Code Visit Inpatient E&M: 70542 Subs Hosp L2
[2019-04-02 11:30] VITALS: BP 132/91; PULSE 67; RESP 16; TEMP 36.4; O2SAT 98
[2019-04-02] MEDS: Ondansetron ODT 4 MG Tablet PO (15:02)
[2019-04-02] MEDS: Dicyclomine 10 MG Capsule 20 MG PO (15:02)
[2019-04-03] MEDS: Buprenorphine HCl 2 MG TAB.SUBL SL (02:23)
[2019-04-03 02:30] VITALS: BP 114/77; PULSE 88; RESP 16; TEMP 36.3; O2SAT 95
[2019-04-03] MEDS: chlordiazePOXIDE 25 MG Capsule PO (06:02)
--- NOTE | 2019-04-03 09:02 | DCINST_ITS ---
You will use the following diet at home:: Regular Your food should be the consistency of: Regular Discharge Activity: Return to Normal Activity Weight Bearing Status: Full weight bearing Call your doctor if you observe: Fever of 101 or Higher, Shortness of breath, Dizziness, Fainting spells, Chest pain, Increased palpitations (irregular heartbeat), Uncontrolled pain Additional Instructions: Follow-up with 180 program. Allergies/Adverse Reactions: Allergies No Known Allergies Allergy (Verified 03/31/19 09:01) Medications to take at Discharge Buprenorphine HCl/Naloxone HCl [Zubsolv 11.4-2.9 mg Tablet Sl] 1 tab SL DAILY 03/31/19 Primary Care Physician: Peggy Jeffrey ASSISTANT PASTRY CHEF-C [NON-STAFF] - Please follow up with your Primary Care Physician in: 2-4 weeks. Test Results: Test results from this visit will be discussed in further detail at your follow- up appointment, if applicable.
[2019-04-03 09:23] VITALS: BP 113/68; PULSE 80; RESP 16; TEMP 36.4; O2SAT 100
--- NOTE | 2019-04-03 11:42 | DS.PCM_ITS ---
Discharge Date and Diagnosis Date of Admission: 03/31/19 Date of Discharge: 04/03/19 - Primary Discharge Diagnosis Acute opioid withdrawal admitted for medical stabilization. - Secondary Discharge Diagnosis Chronic Problems (Last Reviewed 07/04/17 @ 09:45 by Patito Love) Polysubstance dependence including opioid type drug, continuous use (Chronic) Benzodiazepine use and dependence (Chronic) Amphetamine use disorder, moderate, dependence (Chronic) Hospital Course and Treatment Imaging Results: Clinical Impression(s) from Imaging Studies Wrist X-Ray 03/31/19 12:06 IMPRESSION: Normal x-ray examination of the wrist. Electronically Signed: Alexis Cabrera, at 14:39 EST , Service support , Operations: None Procedures: None Summary of Care Provided: Patient seen and examined on the day of discharge and appeared to be stable to be discharged home. Level of anxiety and restlessness significantly improved and he has been able to sleep overnight. His vital signs are stable. The patient is a 44 year old M patient presented to the emergency room requesting admission for acute opioid withdrawal for medical stabilization. Patient has been using IV fentanyl as well as IV heroin along with occasional amphetamines and benzodiazepines. His main presenting symptoms with anxiety, restlessness and agitation as well as mild abdominal cramps. He was treated with tapering course of Subutex and tapering course of Librium as well as as needed Tylenol, Catapres, Bentyl, Vistaril, methocarbamol, Zofran, Mirapex and trazodone. His urine drug screen was positive for amphetamines. Blood alcohol level was 4. On admission, patient mentioned that he may have a needle broken into his right forearm after he injected himself couple of days ago. X-ray of the right forearm and wrist done and showed no evidence of foreign bodies. Init ially, patient was not able to sleep for the first and second night because of significant distress, anxiety and restlessness. With treatment, patient symptoms improved, felt better and his anxiety and insomnia improved. Patient discharged home in a stable condition, plan to follow-up with 180 program, recommended follow-up with PCP in 2 to 4 weeks. - Physical Exam Vitals/I&O's: Vital Signs Temp Pulse Resp BP Pulse Ox 97.5 F L 80 16 113/68 100 04/03/19 09:23 04/03/19 09:23 04/03/19 09:23 04/03/19 09:23 04/03/19 09:23 Oxygen Delivery Method Room Air Weight: 244 lb Body Mass Index (BMI) 28.9 Intake and Output for Last 24 Hours 04/01/19 04/02/19 04/03/19 23:59 23:59 23:59 Intake Total 600 / 600 Balance 600 / 600 General: Alert, Oriented x3, Cooperative, No apparent distress HEENT: Atraumatic, PERRLA, EOMI, Normocephalic Oral: Moist Mucosa, No Gingival or Mucosal Lesions/ Ulcerations Neck: Supple, No JVD, Negative Carotid Bruits, Trachea Midline, Thyroid Normal Size and Texture Lungs: Clear to auscultation, Normal air movement, No rhonchi, No wheeze, No rales Cardiovascular: Regular rate, Regular Rhythm, Normal S1, Normal S2 Abdomen: Bowel Sounds Present, Soft, Non Tender, Non-Distended, No Hepato- splenomegaly Extremities: No clubbing, No cyanosis, No edema Skin: No rashes, No breakdown Lymphatic: No Cervical, Supraclavicular, or Inguinal Adenopathy Neurological: Cranial nerves II-XII grossly intact, Neuro grossly intact Psych/Mental Status: Normal Affect, Appropriate Discharge Activity: Return to Normal Activity Weight Bearing Status: Full weight bearing Call your doctor if you observe: Fever of 101 or Higher, Shortness of breath, Dizziness, Fainting spells, Chest pain, Increased palpitations (irregular heartbeat), Uncontrolled pain Home Medications: Medications to take at Discharge Buprenorphine HCl/Naloxone HCl [Zubsolv 11.4-2.9 mg Tablet Sl] 1 tab SL DAILY 03/31/19 Primary Care Physician: Peggy Jeffrey NP-C [NON-STAFF] - Please follow up with your Primary Care Physician in: 2-4 weeks. Disposition: Home Minutes spent on discharge:: 26 Patient Condition:: Stable Medical Necessity - Tobacco Use Smoking Status: Current every day smoker Tobacco Use: Cigarettes Meaningful Use Info Meaningful Use Diagnoses (Choose all that apply): None applicable Code Visit Inpatient E&M: 50188 Disch Hosp
== END 2019-04-03 10:33 | disposition home or self-care (01) | DRG 773 ==
LOC: ED 09:45 → MS3 04-01 06:31
PROVIDERS: Admitting Provider Hospitalist; Emergency Provider Emergency Medicine; Visit Provider Hospitalist
DX: F11.23 Opioid dependence with withdrawal (principal); F17.210 Nicotine dependence, cigarettes, uncomplicated; F15.20 Other stimulant dependence, uncomplicated; F13.20 Sedative, hypnotic or anxiolytic dependence, uncomplicated; Z86.19 Personal history of other infectious and parasitic diseases
CPT/HCPCS: 36415; 73100; 80307; 80320; 99218; 99283; G0378; G0480

== ENCOUNTER → 2020-10-27 14:01 | Outpatient (CLI) | payer MEDICAID, SELFPAY ==
[2019-03-31 10:51] VITALS: BMI 28.9
[2020-10-27 17:31] LABS: Absolute Lymphocyte Count 2.76 X10^3/uL (0.83-4.51); Absolute Neutrophil Count 4.6 X10^3/uL (2.0-7.7); Basophil# 0.02 X10^3/uL; Basophil% 0.2 % (0-1); Eosinophil# 0.13 X10^3/uL; Eosinophils% 1.6 % (0-5); Hemoglobin 13.7 g/dL (13.0-16.5); Lymphocyte # 2.76 X10^3/ul (0.83-4.51); Lymphocyte % 34.2 % (19-41); Mean Corp Hgb Conc 32.6 g/dL (32-36); Mean Corpuscular Hgb 28.4 pg (27.0-32.0); Mean Platelet Vol. 11.6 fl (6.2-12.0); Monocyte# 0.52 X10^3/uL; Monocyte% 6.4 % (0-10); NRBC Flagged by Analyzer 0 % (0-5); Neutrophil # 4.63 X10^3/uL (2.7-7.7); Neutrophil % 57.4 % (47-70); Platelet Count 229 K/mm3 (150-450); RBC Distribution Width CV 12.1 % (11.6-14.6); RBC Distribution Width SD 38.8 fl (35.1-43.9); Red Blood Count 4.83 M/mm3 (4.6-6.2); White Blood Count 8.1 K/mm3 (4.4-11.0)
[2020-10-27 17:44] LABS: Prothrombin Time (Protime)PT. 12.9 SECONDS (11.7-14.9)
[2020-10-27 20:03] LABS: ALB/GLOB Ratio 1.2 RATIO (0.9-2.4); AST(SGOT) 22 U/L (15-37); Alanine Aminotransfer ALT/SGPT 26 U/L (16-61); Albumin, Serum 3.8 g/dL (3.2-5.0); Alkaline Phosphatase 72 U/L (45-117); Anion Gap 9 (5-15); BUN 18 mg/dL (7-18); BUN/Creat Ratio 17.3 RATIO (10-20); Calcium,Total 8.9 mg/dL (8.5-10.1); Chloride 104 mmol/L (98-107); Creatinine, Serum 1.04 mg/dL (0.70-1.30); EST Glomerular Filtration Rate 82 mL/min (>60); Est Glom Filt Rate - Afr Amer 100 mL/min (>60); Globulin 3.3 g/dL (2.2-4.2); Glucose 88 mg/dL (74-106); Potassium 3.7 mmol/L (3.5-5.1); Protein, Total 7.1 g/dL (6.4-8.2); Rheumatoid Factor < 10.0 IU/mL (<15); Sodium Level 141 mmol/L (136-145)
[2020-10-28 09:34] LABS: HIV - WCH Non-Reactive (Nonreactive); Hepatitis B Surface Antibody Reactive; Syphilis Antibodies Non-reactive
[2020-10-29 18:40] LABS: ANTINUCLEAR ANTIBODIES DIRECT Negative (Negative)
[2020-11-01 14:08] LABS: HCV Quant. RNA PCR HCV Not Detected IU/mL (.); Hepatitis B Core Ab Total Positive (Negative)
[2020-11-01 18:17] LABS: Hepatitis A AB, Total Positive (Negative)
== END ==
DX: F41.9 Anxiety disorder, unspecified (principal); F11.14 Opioid abuse with opioid-induced mood disorder; B18.2 Chronic viral hepatitis C; F17.200 Nicotine dependence, unspecified, uncomplicated
CPT/HCPCS: 36415; 80053; 85025; 85610; 86038; 86431; 86703; 86704; 86706; 86708; 86780; 87522; 87902

== ENCOUNTER → 2020-11-18 12:46 | Outpatient (CLI) | payer MEDICAID, SELFPAY ==
[2019-03-31 10:51] VITALS: BMI 28.9
--- NOTE | 2020-11-18 12:49 | VDLE_ITS ---
Reason For Study: Localized edema RIGHT LEFT GSV is normal. GSV is normal. CFV is compressible, spontaneous, phasic, CFV is compressible, spontaneous, phasic, competent and demonstrates normal competent, and demonstrates normal augmentation. augmentation. FV is compressible, spontaneous, phasic, FV is compressible, spontaneous, phasic, competent and demonstrates normal competent and demonstrates normal augmentation. augmentation. POP V is compressible, spontaneous, phasic, POP V is compressible, spontaneous, phasic, competent and demonstrates normal competent and demonstrates normal augmentation. augmentation. T/P Trunk is compressible. T/P Trunk is compressible. PTV is compressible. PTV is compressible. RT PerV is compressible. LT PerV is compressible. Procedure This is a venous duplex using B-mode, color flow and spectral Doppler. Exam performed in department. A preliminary report was called and/or faxed to [facility] ([place], [place]). VL/Venous Duplex US - Andrés Extrem Interpretation Summary Deep veins of the lower extremities are bilaterally patent and compressible seg mentally. There is no evidence of deep vein thrombosis on either side. Valvular competence appears in tact within the proximal deep venous systems bilaterally. The great saphenous veins appear bila terally patent and compressible segmentally. Ordering Physician: Ingrid Francisco Referring Physician: Racheal [facility] Performed By: Marielle Sierra RVT and Student
== END ==
PROVIDERS: Referring Provider Internal Medicine Infectious Disease; Visit Provider Internal Medicine Infectious Disease
DX: R60.0 Localized edema (principal)
CPT/HCPCS: 93970

== ENCOUNTER 2021-07-18 09:43 | Observation (INO) | payer MEDICAID, SELFPAY ==
[2021-07-18 09:44] VITALS: BP 195/108; PULSE 96; RESP 14; TEMP 36.6; O2SAT 99; BMI 15.0
--- NOTE | 2021-07-18 09:53 | EDS_ITS ---
HPI History of Present Illness Chief Complaint: Substance Abuse Detail of Chief Complaint: Detox from heroin and fentanyl Informant: patient Onset/Context/Timing Onset: Today Context: Gradual Onset Timing: Continuous Associated Symptoms Associated Symptoms: Positive for palpatations; Negative for vomiting*, diarrhea*, fever*, rash*, seizure, tremor, change in mental status, suicidal ideation and homicidal ideation Narrative Narrative: Patient presents requesting detox from heroin and fentanyl. Patient injects daily. Patient states his last use was earlier today. Patient states he has been using for the past 2 weeks. Patient states he has been using 2 to 3 g/day. Patient denies any suicidal homicidal ideations. Patient admits to some palpitations. Patient denies any nausea, vomiting, or diarrhea. Patient denies any fevers or chills but admits to some sweats. Patient denies any rashes. Patient denies any seizures or tremors. Patient has been here before for detox. Patient states it was in 2019. [facility] Medical History (Updated 07/18/21 @ 10:02 by Adore Fountain) Drug abuse Home Medications buprenorphine-naloxone 1 tab SL DAILY 03/31/19 [History Last Taken Unknown] Allergy/AdvReac Type Severity Reaction Status Date / Time No Known Allergies Allergy Verified 07/18/21 09:44 Surgical History (Updated 07/18/21 @ 09:[address] Grady Glez DO) Hx of total knee replacement S/P left knee surgery Social History Smoking Status: Current every day smoker tobacco type: cigarettes ROS ROS ED Constitutional Constitutional ED: Reports sweats; Denies chills or fever(s) Eyes Eyes: Reports diplopia; Denies blurry vision ENT ENT ED: Reports rhinorrhea; Denies sore throat Cardiovascular Cardiovascular: Denies chest pain or palpitations Respiratory/Chest Respiratory/Chest: Denies cough or dyspnea Gastrointestinal Gastrointestinal: Denies nausea or vomiting Genitourinary Genitourinary ED: Denies dysuria or hematuria Musculoskeletal Musculoskeletal: Denies back pain or neck pain Integumentary Denies abscess or rash Neurologic Neurologic: Denies headache(s) or weakness Allergic/Immunologic Allergic/Immunologic ED: Denies mouth swelling or urticaria EXAM Physical Exam Const Vital Signs: 07/18/21 09:44 07/18/21 11:17 Temperature 97.9 F Temperature Source Oral Pulse Rate 96 72 Respiratory Rate 14 16 Blood Pressure 195/108 H 130/101 H Blood Pressure Mean 137 110 Pulse Ox 99 96 Oxygen Delivery Method Room Air Room Air Positive well nourished and well developed General Appearance ED: well developed and NAD HEENT Reports moist mucous membranes Neck supple and no JVD Chest Wall inspection of chest normal and palpation of chest normal Resp normal respiratory effort and clear to auscultation bilaterally Cardio regular rate and regular rhythm GI soft to palpation, non-tender and non-distended Neuro oriented x3, CN's II-XII intact bilaterally and no sensory deficits noted Sensorium / Orientation: alert Motor Exam: strength 5/5 throughout Psych mental status grossly normal and thought process normal MDM MDM MDM Narrative Medical decision making narrative: CBC was within normal limits. Comprehensive metabolic profile was essentially within normal limits. Serum alcohol level was less than 3. Urine tox screen was positive for MDMA. Case was discussed with the hospitalist. He noted that the patient was on Suboxone. He was in to evaluate the patient and patient admitted to selling his Suboxone. He will admit the patient to his service. Patient understood and was agreeable with the plan. All questions were answered. Lab Data Attestation: I reviewed the patient's lab results. Labs: Laboratory Results - last 24 hr 07/18/21 07/18/21 07/18/21 10:25 10:25 10:25 WBC 7.5 RBC 4.92 Hgb 14.3 Hct 43.0 MCV 87.4 MCH 29.1 MCHC 33.3 RDW Std Deviation 39.3 RDW Coeff of Car 12.3 Plt Count 201 MPV 9.6 Immature Gran % (Auto) 0.400 Neut % (Auto) 74.0 H Lymph % (Auto) 17.0 L [place] % (Auto) 7.4 Eos % (Auto) 0.8 Baso % (Auto) 0.4 Absolute Neuts (auto) 5.6 Absolute Lymphs (auto) 1.28 Nucleated RBC % 0 Sodium 139 Potassium 4.1 Chloride 106 Carbon Dioxide 26.0 Anion Gap 7 BUN 10 Creatinine 0.73 Estim Creat Clear Calc 103.55 Est GFR (MDRD) Af Amer 149 Est GFR (MDRD) Non-Af 123 BUN/Creatinine Ratio 13.7 Glucose 118 H Calcium 9.0 Total Bilirubin 0.40 AST 12 L ALT 30 Alkaline Phosphatase 80 Total Protein 7.2 Albumin 3.4 Globulin 3.8 Albumin/Globulin Ratio 0.9 Urine Opiates Screen Urine Methadone Screen Ur Barbiturates Screen Ur Phencyclidine Scrn Ur Amphetamines Screen MDMA (Ecstasy) Screen U Benzodiazepines Scrn Urine Cocaine Screen U Cannabinoids Screen Ur Drug Screen Comment Ethyl Alcohol < 3.0 07/18/21 10:56 WBC RBC Hgb Hct MCV MCH MCHC RDW Std Deviation RDW Coeff of Car Plt Count MPV Immature Gran % (Auto) Neut % (Auto) Lymph % (Auto) [place] % (Auto) Eos % (Auto) Baso % (Auto) Absolute Neuts (auto) Absolute Lymphs (auto) Nucleated RBC % Sodium Potassium Chloride Carbon Dioxide Anion Gap BUN Creatinine Estim Creat Clear Calc Est GFR (MDRD) Af Amer Est GFR (MDRD) Non-Af BUN/Creatinine Ratio Glucose Calcium Total Bilirubin AST ALT Alkaline Phosphatase Total Protein Albumin Globulin Albumin/Globulin Ratio Urine Opiates Screen NEGATIVE Urine Methadone Screen NEGATIVE Ur Barbiturates Screen NEGATIVE Ur Phencyclidine Scrn NEGATIVE Ur Amphetamines Screen NEGATIVE MDMA (Ecstasy) Screen POSITIVE H U Benzodiazepines Scrn NEGATIVE Urine Cocaine Screen NEGATIVE U Cannabinoids Screen NEGATIVE Ur Drug Screen Comment Ethyl Alcohol Discharge Plan Triage Chief Complaint: Substance Abuse ED Provider: Grady Glez Dx/Rx/DC Orders Clinical Impression: Acute opioid withdrawal Prescriptions: No Action buprenorphine-naloxone 1 EACH tablet, sublingual 1 tab SL DAILY RF: 0 Primary Care Provider: Racheal Fabian Referrals: Racheal Fabian [Primary Care Provider] - Disposition Disposition: Acute Care Hospital [facility]
--- NOTE | 2021-07-18 10:06 | CM.ED ---
Addendum entered by Chel Roach 07/18/21 12:38: MAIK called Nate, Treatment Navigator and advised of patient's admission. Nate was already aware of patient. Chel DINERO Original Note: MAIK Note Referral Source: Case Find Referral Reason: RAMP Sw met with patient. Patient said that he is at the ED for detox. Patient is detoxing from heroin and fentanyl. Patient reports using 2-3 grams of heroin a day. Patient reports a unknown amount of fentanyl as it was mixed together. Last use was 6am. Patient was previously at [facility] and went to [facility] near [place] and was sober for 1 1/2 years. Patient started to use again 3 months ago starting with suboxone. Patient reports he had tried to stop during the 3 month stay however, began using again 2 weeks ago. Patient reports he was previously [facility] the past. SW reviewed the information about the RAMP including no phone calls, no visitors and belongings locked up. Patient said that he wanted to call his brother and update him. SW offered to get the portable phone and patient said well, he's probably busy.. I will do it later. Patient said the hospital can call and social worker clinical said that it would be best if patient called and spoke to family as they would prefer to speak to him. MAIK updated LISA Avitia. Plan: Admission to RAMP program Chel DINERO
[2021-07-18 10:31] LABS: Absolute Lymphocyte Count 1.28 X10^3/uL (0.83-4.51); Absolute Neutrophil Count 5.6 X10^3/uL (2.0-7.7); Basophil# 0.03 X10^3/uL; Basophil% 0.4 % (0-1); Eosinophil# 0.06 X10^3/uL; Eosinophils% 0.8 % (0-5); Hemoglobin 14.3 g/dL (13.0-16.5); Lymphocyte # 1.28 X10^3/ul (0.83-4.51); Mean Corp Hgb Conc 33.3 g/dL (32-36); Mean Corpuscular Hgb 29.1 pg (27.0-32.0); Mean Corpuscular Volume 87.4 fL (80-94); Mean Platelet Vol. 9.6 fl (6.2-12.0); Monocyte# 0.56 X10^3/uL; Monocyte% 7.4 % (0-10); NRBC Flagged by Analyzer 0 % (0-5); Neutrophil # 5.57 X10^3/uL (2.7-7.7); Platelet Count 201 K/mm3 (150-450); RBC Distribution Width CV 12.3 % (11.6-14.6); RBC Distribution Width SD 39.3 fl (35.1-43.9); Red Blood Count 4.92 M/mm3 (4.6-6.2); White Blood Count 7.5 K/mm3 (4.4-11.0)
[2021-07-18 10:49] LABS: ALB/GLOB Ratio 0.9 RATIO (0.9-2.4); AST(SGOT) 12 U/L (15-37); Alanine Aminotransfer ALT/SGPT 30 U/L (16-61); Albumin, Serum 3.4 g/dL (3.2-5.0); Alkaline Phosphatase 80 U/L (45-117); Anion Gap 7 (5-15); BUN 10 mg/dL (7-18); BUN/Creat Ratio 13.7 RATIO (10-20); Chloride 106 mmol/L (98-107); Creatinine, Serum 0.73 mg/dL (0.70-1.30); EST Glomerular Filtration Rate 123 mL/min (>60); Est Glom Filt Rate - Afr Amer 149 mL/min (>60); Estimated Creatinine Clearance 103.55 ml/min; Globulin 3.8 g/dL (2.2-4.2); Glucose 118 mg/dL (74-106); Potassium 4.1 mmol/L (3.5-5.1); Protein, Total 7.2 g/dL (6.4-8.2); Sodium Level 139 mmol/L (136-145)
[2021-07-18 11:00] LABS: Alcohol, Blood (Medical)-Serum < 3.0 mg/dL
[2021-07-18 11:15] LABS: Amphetamine Urine VISTA NEGATIVE (<1000 ng/mL); Barbiturate Urine VISTA NEGATIVE (< 200 ng/mL); Benzodiazepine Urine VISTA NEGATIVE (< 200 ng/mL); Cocaine Urine VISTA NEGATIVE (< 300 ng/mL); Ecstacy Urine VISTA POSITIVE (< 500 ng/mL); Methadone Urine VISTA NEGATIVE (< 300 ng/mL); PCP Urine VISTA NEGATIVE (< 25 ng/mL); THC Urine VISTA NEGATIVE (< 50 ng/mL); Vista UDS pH Range 5
[2021-07-18 11:17] VITALS: BP 130/101; PULSE 72; RESP 16; O2SAT 96
--- NOTE | 2021-07-18 12:00 | PCM.HP.STD ---
HPI - General General Date of Admission: 07/18/21 Date of Service: 07/18/21 Chief Complaint: Opiate withdrawal symptoms HPI Narrative BHUPENDRA CANTOR, is a 46 M who presents seeking tmt for acute opiate wd. Last use was this AM. He uses fentanyl or heroin and injects. 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 He received Suboxone from Dr. Dg Urbano, but endorses that he does not use it and sells it. [facility] Medical History Drug abuse Hepatitis B Hepatitis C Opiate abuse, continuous Home Medications buprenorphine-naloxone 1 tab SL DAILY 03/31/19 [History Last Taken Unknown] Allergy/AdvReac Type Severity Reaction Status Date / Time No Known Allergies Allergy Verified 07/18/21 09:44 Surgical History Hx of total knee replacement S/P left knee surgery Social History Smoking Status: Current every day smoker tobacco type: cigarettes ROS ROS Narrative abdominal pain. restless legs. otherwise ROS negative except as in ROS and HPI. Vital Signs Vital Signs Vital Signs: 07/18/21 09:44 07/18/21 11:17 Temperature 36.6 C Temperature Source Oral Pulse Rate 96 72 Respiratory Rate 14 16 Blood Pressure 195/108 H 130/101 H Blood Pressure Mean 137 110 Pulse Ox 99 96 Oxygen Delivery Method Room Air Room Air Weight Weight: 57.289 kg Body Mass Index (BMI) 15.0 Physical Exam Const alert General Appearance: cooperative Resp normal respiratory effort, no retractions, no use of accessory muscles and clear to auscultation bilaterally Cardio regular rate, regular rhythm, S1 normal heart sound and S2 normal heart sound GI normal to inspection, nondistended, normoactive bowel sounds, soft to palpation, non-tender and non-distended Extremity normal to inspection Neuro Sensorium / Orientation: awake and alert Psych affect normal Results Lab / Micro Data Result Diagrams: 07/18/21 10:25 07/18/21 10:25 Labs: Laboratory Results - last 24 hr 07/18/21 10:25: WBC 7.5, RBC 4.92, Hgb 14.3, Hct 43.0, MCV 87.4, MCH 29.1, MCHC 33.3, RDW Std Deviation 39.3, RDW Coeff of Car 12.3, Plt Count 201, MPV 9.6, Immature Gran % (Auto) 0.400, Neut % (Auto) 74.0 H, Lymph % (Auto) 17.0 L, [place] % (Auto) 7.4, Eos % (Auto) 0.8, Baso % (Auto) 0.4, Absolute Neuts (auto) 5.6, Absolute Lymphs (auto) 1.28, Nucleated RBC % 0 07/18/21 10:25: Sodium 139, Potassium 4.1, Chloride 106, Carbon Dioxide 26.0, Anion Gap 7, BUN 10, Creatinine 0.73, Estim Creat Clear Calc 103.55, Est GFR (MDRD) Af Amer 149, Est GFR (MDRD) Non-Af 123, BUN/Creatinine Ratio 13.7, Glucose 118 H, Calcium 9.0, Total Bilirubin 0.40, AST 12 L, ALT 30, Alkaline Phosphatase 80, Total Protein 7.2, Albumin 3.4, Globulin 3.8, Albumin/Globulin Ratio 0.9 07/18/21 10:25: Ethyl Alcohol < 3.0 07/18/21 10:56: Urine Opiates Screen NEGATIVE, Urine Methadone Screen NEGATIVE, Ur Barbiturates Screen NEGATIVE, Ur Phencyclidine Scrn NEGATIVE, Ur Amphetamines Screen NEGATIVE, MDMA (Ecstasy) Screen POSITIVE H, U Benzodiazepines Scrn NEGATIVE, Urine Cocaine Screen NEGATIVE, U Cannabinoids Screen NEGATIVE, Ur Drug Screen Comment Assessment & Plan Assessment/Plan (1) Acute opioid withdrawal: PLAN: 1. acute opiate withdrawal last use was this AM. start buprenorphine taper and other adjunctive medications for help with other withdrawal symptoms. addiction medicine to help with outpt programs. 2. medication diversion. pt admits to selling his Suboxone informed pt it may be a concern with his outpt program. I tried to call Dr. Vignesh Urbano, but could not find a number online. notified pharmacist at [facility] in [place] (where the Suboxone is filled). Charges/Coding Visit Charges Inpatient E&M: 19673 Init Hosp L2
[2021-07-18 12:17] VITALS: BP 130/101; PULSE 72; RESP 16; TEMP 36.6; O2SAT 96
[2021-07-18 13:02] VITALS: BMI 32.4
[2021-07-18] MEDS: Acetaminophen 500 MG Tablet PO ×2 (13:39→22:12)
[2021-07-18] MEDS: Methocarbamol 750 MG Tablet 1500 MG PO ×2 (13:39→20:41)
[2021-07-18] MEDS: hydrOXYzine PAM 25 MG Capsule 50 MG PO ×2 (13:40→19:23)
[2021-07-18 13:44] VITALS: BP 144/79; PULSE 61; RESP 16; TEMP 36.4; O2SAT 97
[2021-07-18] MEDS: Buprenorphine HCl 2 MG TAB.SUBL SL ×2 (14:29→20:41)
[2021-07-18] MEDS: Gabapentin 300 MG Capsule PO (17:04)
[2021-07-18] MEDS: cloNIDine HCl 0.1 MG Tablet PO (17:04)
[2021-07-18 17:23] VITALS: BP 176/103
[2021-07-18] MEDS: Dicyclomine 10 MG Capsule 20 MG PO (19:24)
[2021-07-18 20:35] VITALS: BP 145/99; PULSE 68; RESP 20; TEMP 36.4; O2SAT 98
[2021-07-18] MEDS: traZODone 100 MG Tablet PO (20:41)
[2021-07-19 01:08] VITALS: BP 166/105; PULSE 87; RESP 20; TEMP 36.5; O2SAT 100
[2021-07-19] MEDS: cloNIDine HCl 0.1 MG Tablet PO ×3 (01:12→21:45)
[2021-07-19] MEDS: Gabapentin 300 MG Capsule PO (01:12)
[2021-07-19 05:56] VITALS: BP 163/92; PULSE 53; RESP 20; TEMP 36.5; O2SAT 100
[2021-07-19] MEDS: Methocarbamol 750 MG Tablet 1500 MG PO ×3 (06:01→21:45)
[2021-07-19] MEDS: Buprenorphine HCl 2 MG TAB.SUBL SL ×3 (06:01→21:46)
[2021-07-19] MEDS: hydrOXYzine PAM 25 MG Capsule 50 MG PO ×2 (06:01→13:15)
[2021-07-19] MEDS: Dicyclomine 10 MG Capsule 20 MG PO (06:01)
[2021-07-19 09:33] VITALS: BP 160/102; PULSE 76; RESP 18; TEMP 36.6; O2SAT 95
--- NOTE | 2021-07-19 10:39 | ADDICTION ---
This software writer met with PT to conduct ASAM, MSE, AUDIT, DUDIT assessments and to plan for d/c. PT A+Ox4 and participated actively. All assessments completed and placed in PT's chart. PT plans to f/u with Cirilo Amado [facility] for MAT and follow-up treatment services. PT did not indicate a need for transportation post d/c from [facility].
--- NOTE | 2021-07-19 14:18 | PN.HOSP_ITS ---
Subjective Subjective Feels okay. Denies any new complaints. Objective Data Objective Data Vital Signs: Vital Signs Temp Pulse Resp BP Pulse Ox 36.6 C 76 18 160/102 H 95 07/19/21 09:33 07/19/21 09:33 07/19/21 09:33 07/19/21 09:33 07/19/21 09:33 Oxygen Delivery Method Room Air Weight: 124.239 kg Body Mass Index (BMI) 32.4 Intake & Output: Intake and Output for Last 24 Hours 07/17/21 07/18/21 07/19/21 23:59 23:59 23:59 Intake Total 1200 / 1200 Balance 1200 / 1200 Lab / Micro Data Result Diagrams: 07/18/21 10:25 07/18/21 10:25 Physical Exam Const alert and no apparent distress Neuro Sensorium / Orientation: awake and alert Psych affect normal Assessment & Plan Assessment/Plan (1) Acute opioid withdrawal: PLAN: 1. acute opiate withdrawal last use was 07/18 start buprenorphine taper and other adjunctive medications for help with other withdrawal symptoms. addiction medicine met with the patient and he is planning on following up with [facility] in [place] 2. medication diversion. pt admits to selling his Suboxone informed pt it may be a concern with his outpt program. I tried to call Dr. Vignesh Urbano, but could not find a number online. notified pharmacist at [facility] in [place] (where the Suboxone is filled). Charges/Coding Visit Charges Inpatient E&M: 99597 [facility] Hosp L1
[2021-07-19 14:34] VITALS: BP 154/97; PULSE 86; RESP 18; TEMP 36.8; O2SAT 97
--- NOTE | 2021-07-19 16:34 | CHAPLAIN ---
Type of Pastoral Visit ___ Initial Visit ___ Follow-up Visit ___ On-call Visit ___ General Patient Visit ___ Spiritual Assessment ___ Family Conference ___ Bereavement ___ Rapid Response ___ Code Blue ___ Other (describe below) Pastoral Care Referral From ___ Patient ___ Family ___ Nurse ___ Physician ___ Manager Of Creative Services ___ [place] Supervisor ___ Other (describe below) Sacrament/Intervention ___ Active listening ___ Anointing ___ Presybeterian ___ Bereavement ___ Communion ___ Heavenly exploration ___ ___ Life review ___ Prayer ___ Reconciliation ___ Sacrament of Sick ___ Supportive presence ___ Wedding ___ Other (describe below) Pastoral Comments two attempts to visit this patient; pt is groggy and states he would rather have this product lead return at another time
[2021-07-19 21:42] VITALS: BP 155/97; PULSE 65; RESP 18; TEMP 36.6; O2SAT 98
[2021-07-19] MEDS: traZODone 100 MG Tablet PO (21:45)
[2021-07-20 05:07] VITALS: BP 157/91; PULSE 75; RESP 16; TEMP 36.3; O2SAT 97
[2021-07-20] MEDS: Gabapentin 300 MG Capsule PO ×2 (05:11→13:23)
[2021-07-20] MEDS: Methocarbamol 750 MG Tablet 1500 MG PO (05:11)
[2021-07-20] MEDS: Buprenorphine HCl 2 MG TAB.SUBL SL ×2 (05:12→13:23)
[2021-07-20] MEDS: Ondansetron 8 MG Tablet PO (08:38)
[2021-07-20 09:00] VITALS: BP 151/104; PULSE 80; RESP 18; TEMP 36.3; O2SAT 98
--- NOTE | 2021-07-20 11:25 | PCM.PN.HOSP ---
Subjective Subjective Vomiting today with abdominal pain. Objective Data Objective Data Vital Signs: Vital Signs Temp Pulse Resp BP Pulse Ox 36.3 C L 80 18 151/104 H 98 07/20/21 09:00 07/20/21 09:00 07/20/21 09:00 07/20/21 09:00 07/20/21 09:00 Oxygen Delivery Method Room Air Weight: 124.239 kg Body Mass Index (BMI) 32.4 Intake & Output: Intake and Output for Last 24 Hours 07/18/21 07/19/21 07/20/21 23:59 23:59 23:59 Intake Total 1400 / 1400 Balance 1400 / 1400 Lab / Micro Data Result Diagrams: 07/18/21 10:25 07/18/21 10:25 Physical Exam Const alert and no apparent distress Resp normal respiratory effort, no retractions, no use of accessory muscles and clear to auscultation bilaterally Cardio regular rate, regular rhythm, S1 normal heart sound and S2 normal heart sound GI normal to inspection, nondistended, normoactive bowel sounds, soft to palpation and non-tender Extremity normal to inspection Psych affect normal Assessment & Plan Assessment/Plan (1) Acute opioid withdrawal: PLAN: 1. acute opiate withdrawal last use was 07/18 start buprenorphine taper and other adjunctive medications for help with other withdrawal symptoms. addiction medicine met with the patient and he is planning on following up with [facility] in [place] 2. medication diversion. pt admits to selling his Suboxone informed pt it may be a concern with his outpt program. I tried to call Dr. Vignesh Urbano, but could not find a number online. notified pharmacist at [facility] in [place] (where the Suboxone is filled). Charges/Coding Visit Charges Inpatient E&M: 16182 Subs Hosp L2
[2021-07-20 13:15] VITALS: BP 133/94; PULSE 76; RESP 18; TEMP 36.3; O2SAT 97
[2021-07-20] MEDS: cloNIDine HCl 0.1 MG Tablet PO (13:23)
--- NOTE | 2021-07-20 13:45 | NURSING ---
into see pt. pt requesting to leave AMA, pt would not give specific reasons why wants to leave. discussed removing nicotine prior to smoking. discussed taking resources given to him by nelda/SAIGE navigator. AMA instructions given/forms signed.
--- NOTE | 2021-07-20 14:01 | PCM.DC.SUM ---
Providers Date of Admission: 07/18/21 Primary Care Physician: Dr. Racheal Fabian Reason For Visit: OPIATE WITHDRAWAL Diagnosis Discharge Diagnosis (1) Acute opioid withdrawal: Status: Acute Medications at Discharge Home Medications buprenorphine-naloxone 1 tab SL DAILY 03/31/19 Hospital Course Operations None Procedures None Summary of Care Provided Minutes Spent on Discharge: 25 Hospital Course: This is a 46-year-old male presents seeking opiate withdrawal treatment. Patient was started on buprenorphine taper as well as other adjunctive agents to help with other somatic complaints. Patient was doing well today start has been vomiting. Patient had another day here to complete his treatment and then was to follow-up with [facility]. Patient left AGAINST MEDICAL ADVICE today. Of note it was noted that the patient was diverting his Suboxone. Patient admitted to such. The pharmacy [facility], was noted of this the patient was diverting the medication I spoke to the pharmacist who took the information. Try to get a hold of the physician, Dr. Dg Urbano, however I was unable to find a number online. It appears all the Suboxone scripts went to [facility]. Weight / BMI Weight Weight: 124.239 kg Body Mass Index (BMI) 32.4 ABG / Lab / Microbiology Data Result Diagrams: 07/18/21 10:25 07/18/21 10:25 Meaningful Use Info Meaningful Use Diagnoses (Choose all that apply): None applicable Discharge Plan Admission Admit Date/Time: 07/18/21 11:58 Primary Reason for Your Visit: opiate withdrawal Attending Provider: Grady Meng Primary Care Provider: Racheal Fabian Discharge Orders/Prescriptions Prescriptions: No Action buprenorphine-naloxone 1 EACH tablet, sublingual 1 tab SL DAILY RF: 0 Referrals / Follow Up: Racheal Fabian [Primary Care Provider] - Disposition Disposition (needs filled in before D/C Order can be placed): Against Medical Advice Charges/Coding Visit Charges Inpatient E&M: 96890 Disch Hosp
== END 2021-07-20 13:51 | disposition left against medical advice (07) ==
LOC: ED 11:58 → MS3 15:16
PROVIDERS: Emergency Provider Emergency Medicine
DX: F11.23 Opioid dependence with withdrawal (principal); F17.210 Nicotine dependence, cigarettes, uncomplicated; Z86.19 Personal history of other infectious and parasitic diseases
CPT/HCPCS: 80053; 80307; 82077; 85025; 99283; H0012

== ENCOUNTER 2021-09-06 07:47 | Inpatient (IN) | payer MEDICAID, SELFPAY ==
[2021-09-06 07:48] VITALS: BP 163/104; PULSE 83; RESP 18; TEMP 36.6; O2SAT 99; BMI 32.5
--- NOTE | 2021-09-06 08:01 | EX.ED.SAOD ---
HPI History of Present Illness Chief Complaint: Substance Abuse Detail of Chief Complaint: Requesting detox from fentanyl Informant: patient Narrative Narrative: Patient presents to the emergency department wanting detox from fentanyl. Patient states that he was admitted about a month ago and was started on Suboxone. Patient had not been taking it but he states he took 1 yesterday. His last use of fentanyl was yesterday. Patient having withdrawal symptoms of feeling quite restless and could not sleep. Complains of nausea. He complains of goosebumps to his skin. Patient denies recent illness. Patient states last time he left the hospital early but wants to do it right this time. Patient states he normally uses half a gram to 1 g IV daily. Patient states he was clean for about a year and a half up until about 4 months ago when he started using again. Patient denies recent alcohol use. He denies any other drug use. Patient denies suicidal or homicidal ideations. Prior similar symptoms: Yes PFSH PFSH Medical History Drug abuse Hepatitis B Hepatitis C Opiate abuse, continuous Home Medications buprenorphine-naloxone 1 tab SL DAILY 03/31/19 [History Last Taken Unknown] Allergy/AdvReac Type Severity Reaction Status Date / Time No Known Allergies Allergy Verified 09/06/21 07:49 Surgical History Hx of total knee replacement S/P left knee surgery Social History Smoking Status: Current every day smoker tobacco type: cigarettes ROS ROS ED Constitutional Constitutional ED: Reports systems reviewed and no addt'l complaints, except as documented; Denies body ache(s), change in weight or chills Eyes Eyes: Denies acute decrease in peripheral vision, change in vision, double vision or loss of vision ENT ENT ED: Reports none; Denies ear pain, lip swelling, loss taste/smell, neck pain, otalgia or sore throat Cardiovascular Cardiovascular: Reports none; Denies abdominal pain, chest pain with activity, leg edema, lightheadedness, palpitations, rapid heart rate or syncope Respiratory/Chest Respiratory/Chest: Reports none; Denies change in mental status, dry cough, dyspnea, hemoptysis, shortness of breath at rest or shortness of breath with exertion Gastrointestinal Gastrointestinal: Reports none and nausea; Denies abdominal pain, change in stool character, diarrhea, hematemesis, hematochezia, melena, rectal bleeding or vomiting Genitourinary Genitourinary ED: Reports none; Denies abdominal discomfort, anuria, dysuria, genital pain or polyuria Musculoskeletal Musculoskeletal: Reports none; Denies arthralgias, back pain, difficulty walking, extremity pain, muscle weakness or myalgias Integumentary Reports none and other Details: Goosebumps ; Denies abscess or rash Neurologic Neurologic: Reports none and other Details: Restless ; Denies abnormal gait, confusion, focal weakness, frequent falls, headache(s), loss of vision, numbness, paresthesias, radicular pain, vertigo or weakness Psychiatric Psychiatric: Reports systems reviewed and no addt'l complaints, except as documented and none; Denies behavioral changes, confusion, difficulty concentrating, hallucinations, suicidal ideation, tactile hallucinations or visual hallucinations Endocrine Endocrinology: Denies none, cold intolerance, excessive sweating, fatigue or heat intolerance Hematologic/Lymphatic Hematologic/Lymphatic: Reports none; Denies anemia, easy bleeding or easy bruising Allergic/Immunologic Allergic/Immunologic ED: Denies as per HPI, none, lip swelling, mouth swelling, throat swelling, tongue swelling or hives EXAM Physical Exam Const Vital Signs: 09/06/21 07:48 Temperature 97.9 F Temperature Source Temporal Pulse Rate 83 Respiratory Rate 18 Blood Pressure 163/104 H Blood Pressure Mean 123 Pulse Ox 99 Oxygen Delivery Method Room Air Positive well nourished and well developed General Appearance ED: well developed and NAD HEENT Reports TM's clear and moist mucous membranes normocephalic and atraumatic; Negative for trauma or tenderness Tympanic Membrane ED: Yes TM's clear Eyes PERRL and EOMs intact bilaterally General Eye ED: Negative for pale conjunctiva or scleral icterus Neck no lymphadenopathy, supple and no JVD General: Negative for tenderness Chest Wall inspection of chest normal and palpation of chest normal Chest: Negative for tenderness Resp normal respiratory effort and clear to auscultation bilaterally Effort and Inspection: Negative for respiratory distress or pain with movement Auscultation: Negative for rhonchi, wheezes or diminished lung sounds Cardio regular rate, regular rhythm, S1 normal heart sound, S2 normal heart sound and no murmurs Peripheral Pulses: pulses 2+ throughout GI normal to inspection, nondistended, normoactive bowel sounds, soft to palpation, non-tender, non-distended and no masses Back/Spine no CVA tenderness and no thoracic nor lumbar tenderness Extremity normal to inspection Extremity Narrative: Patient with multiple track bosch on the upper extremities General Extremety ED: Negative for edema General Extremity: Negative for edema Neuro oriented x3, CN's II-XII intact bilaterally, no sensory deficits noted and gait normal Sensorium / Orientation: awake, alert, oriented to person, oriented to place and oriented to time Motor Exam: strength 5/5 throughout and strength abnormal Psych mental status grossly normal Skin no rashes or lesions noted and no wounds MDM MDM MDM Narrative Medical decision making narrative: Patient given Zofran p.o. and a milligram of Ativan IM. Lab work was ordered and will be pending. Patient was ordered a tox screen and alcohol level. Case will be discussed with hospitalist evaluate patient for admission Discharge Plan Triage Chief Complaint: Substance Abuse ED Provider: Steve Hebert Dx/Rx/DC Orders Clinical Impression: Opiate abuse, continuous, Desire for detoxification Prescriptions: No Action buprenorphine-naloxone 1 EACH tablet, sublingual 1 tab SL DAILY RF: 0 Primary Care Provider: Racheal Fabian Referrals: Racheal Fabian [Primary Care Provider] - Disposition Disposition: Acute Care Hospital [facility]
[2021-09-06] MEDS: Ondansetron ODT 4 MG Tablet PO (08:35)
[2021-09-06] MEDS: LORazepam 2 MG/ML Syringe 1 MG IM (08:35)
[2021-09-06 08:42] LABS: Absolute Lymphocyte Count 1.74 X10^3/uL (0.83-4.51); Absolute Neutrophil Count 5.1 X10^3/uL (2.0-7.7); Basophil# 0.03 X10^3/uL; Basophil% 0.4 % (0-1); Eosinophil# 0.03 X10^3/uL; Eosinophils% 0.4 % (0-5); Hematocrit 47.1 % (40-54); Lymphocyte # 1.74 X10^3/ul (0.83-4.51); Lymphocyte % 23.6 % (19-41); Mean Corpuscular Hgb 28.6 pg (27.0-32.0); Mean Corpuscular Volume 84.1 fL (80-94); Mean Platelet Vol. 9.7 fl (6.2-12.0); Monocyte# 0.42 X10^3/uL; Monocyte% 5.7 % (0-10); NRBC Flagged by Analyzer 0 % (0-5); Neutrophil # 5.13 X10^3/uL (2.7-7.7); Neutrophil % 69.6 % (47-70); Platelet Count 216 K/mm3 (150-450); RBC Distribution Width CV 12.1 % (11.6-14.6); RBC Distribution Width SD 36.4 fl (35.1-43.9); White Blood Count 7.4 K/mm3 (4.4-11.0)
--- NOTE | 2021-09-06 08:50 | NURSING ---
DR KHUSHI MARES
[2021-09-06 08:52] VITALS: BP 163/104; PULSE 83; RESP 18; TEMP 36.6; O2SAT 99
[2021-09-06 08:52] LABS: ALB/GLOB Ratio 1.1 RATIO (0.9-2.4); AST(SGOT) 9 U/L (15-37); Alanine Aminotransfer ALT/SGPT 19 U/L (16-61); Albumin, Serum 3.9 g/dL (3.2-5.0); Alkaline Phosphatase 79 U/L (45-117); Anion Gap 7 (5-15); BUN 8 mg/dL (7-18); BUN/Creat Ratio 11.9 RATIO (10-20); Calcium,Total 9.3 mg/dL (8.5-10.1); Chloride 104 mmol/L (98-107); Creatinine, Serum 0.67 mg/dL (0.70-1.30); EST Glomerular Filtration Rate 136 mL/min (>60); Est Glom Filt Rate - Afr Amer 164 mL/min (>60); Estimated Creatinine Clearance 175.47 ml/min; Globulin 3.5 g/dL (2.2-4.2); Glucose 116 mg/dL (74-106); Potassium 3.7 mmol/L (3.5-5.1); Protein, Total 7.4 g/dL (6.4-8.2); Sodium Level 136 mmol/L (136-145)
--- NOTE | 2021-09-06 08:54 | PCM.HP.STD ---
[facility] General General Date of Admission: 09/06/21 Date of Service: 09/06/21 Chief Complaint: Requesting detox from fentanyl HPI Narrative BHUPENDRA CANTOR, is a 46 M with history of chronic opioid use, fentanyl, 1/2 gram - 1 g IV daily came to ER for detox. Patient having withdrawal symptoms of restlessness, anxiety, insomnia, yawning goosebumps, muscle aches and pain. He denies any hallucination. Patient had history of chronic hep B and was treated and he states it is undetectable although no documentation to verify. Patient was sober for 1 and half years but relapsed about 4 months ago. Denies suicidal or homicidal ideation. Denies chronic alcohol use, crack cocaine, methamphetamine, bath salts, ecstasy or phencyclidine. Labs were ordered in the ER and discussed in assessment plan. Patient is further admitted He denies family history of substance use but parent had coronary artery disease [facility] Medical History Amphetamine use disorder, moderate, dependence Benzodiazepine use and dependence Drug abuse Hepatitis B Hepatitis C Opiate abuse, continuous Polysubstance dependence including opioid type drug, continuous use Home Medications buprenorphine-naloxone 1 tab SL DAILY 03/31/19 [History Last Taken 09/05/21] Allergy/AdvReac Type Severity Reaction Status Date / Time No Known Allergies Allergy Verified 09/06/21 07:49 Surgical History Hx of total knee replacement S/P left knee surgery Social History Smoking Status: Current every day smoker tobacco type: cigarettes ROS ROS Narrative Constitutional: Reports fatigue and weakness, insomnia very restless. No fever HEENT: Reports systems reviewed and no addt'l complaints, except as documented Respiratory/Chest: Denies chest pain, shortness of breath at rest or with exertion Gastrointestinal: Denies coffee ground emesis, hematemesis or vomiting Genitourinary: Denies burning urination or new urinary tract symptoms Musculoskeletal: Reports joint pain and limited range of motion Neurologic: Denies seizure-like activity skin: No ulcer. No rash Endocrinology: Reports systems reviewed and no addt'l complaints, except as documented Hematologic/Lymphatic: Reports systems reviewed and no addt'l complaints, except as documented Psychiatric: Anxiety, insomnia. Denies suicidal or homicidal ideation. Rest 14 ROS are negative except as mentioned in HPI Vital Signs Vital Signs Vital Signs: 09/06/21 07:48 Temperature 97.9 F Temperature Source Temporal Pulse Rate 83 Respiratory Rate 18 Blood Pressure 163/104 H Blood Pressure Mean 123 Pulse Ox 99 Oxygen Delivery Method Room Air Weight Weight: 275 lb Body Mass Index (BMI) 32.5 Physical Exam Narrative General: Awake, mild lethargy, oriented x3, Cooperative HEENT: Atraumatic, PERRLA, EOMI, Normocephalic Oral: No Gingival or Mucosal Lesions/ Ulcerations Neck: Supple, No JVD, Negative Carotid Bruits Lungs: Air entry diminished in bilateral lung bases. No crepitation/rhonchi Cardiovascular: Regular rate, Regular Rhythm, Normal S1, Normal S2, No murmurs Abdomen: Bowel Sounds Present, Soft, Non Tender, Non-Distended : No renal angle tenderness. No suprapubic tenderness. Extremities: No edema, Capillary Refill Less than 3 Seconds Skin: No rashes, No breakdown Musculoskeletal: No Tenderness to Palpation of Joints or Extremities Neurological: Cranial nerves II-XII grossly intact, DTR 2+/4 and Symmetrical, Neuro grossly intact Psych/Mental Status: Restless, flat affect. No hallucination or seizure Results Lab / Micro Data Result Diagrams: 09/06/21 08:31 09/06/21 08:31 Labs: Laboratory Results - last 24 hr 09/06/21 08:31: WBC 7.4, RBC 5.60, Hgb 16.0, Hct 47.1, MCV 84.1, MCH 28.6, MCHC 34.0, RDW Std Deviation 36.4, RDW Coeff of Car 12.1, Plt Count 216, MPV 9.7, Immature Gran % (Auto) 0.300, Neut % (Auto) 69.6, Lymph % (Auto) 23.6, [place] % (Auto) 5.7, Eos % (Auto) 0.4, Baso % (Auto) 0.4, Absolute Neuts (auto) 5.1, Absolute Lymphs (auto) 1.74, Nucleated RBC % 0 09/06/21 08:31: Sodium 136, Potassium 3.7, Chloride 104, Carbon Dioxide 25.0, Anion Gap 7, BUN 8, Creatinine 0.67 L, Estim Creat Clear Calc 175.47, Est GFR (MDRD) Af Amer 164, Est GFR (MDRD) Non-Af 136, BUN/Creatinine Ratio 11.9, Glucose 116 H, Calcium 9.3, Total Bilirubin 0.40, AST 9 L, ALT 19, Alkaline Phosphatase 79, Total Protein 7.4, Albumin 3.9, Globulin 3.5, Albumin/Globulin Ratio 1.1 Assessment & Plan Assessment/Plan (1) Opiate abuse, continuous: PLAN: 1. Acute opioid withdrawal syndrome with history of chronic opioid use disorder, dependence and tolerance: Patient is being admitted MedSurg floor. Started on buprenorphine scheduled protocol along with other adjunctive medications to control the symptoms. Wanted to consult. Patient refused for IV fluid. He expresses desire to quit opioids. 2. Chronic cigarette smoking/nicotine dependence: On nicotine patch. 3. History of chronic hep B: Patient states he was treated for chronic hep B in the past. ALT 19 AST 9. Total bilirubin normal. 4. History of bilateral TKR VTE prophylaxis low risk early ambulation encouraged. Charges/Coding Visit Charges Inpatient E&M: 78715 Init Hosp L3
--- NOTE | 2021-09-06 08:54 | NURSING ---
MED SURG KHUSHI OPIOD ABUSE, DETOX REQUEST
[2021-09-06 09:07] LABS: Alcohol, Blood (Medical)-Serum < 3.0 mg/dL
[2021-09-06 09:17] LABS: Magnesium 1.8 mg/dL (1.6-2.6)
[2021-09-06 09:53] LABS: Amphetamine Urine VISTA NEGATIVE (<1000 ng/mL); Barbiturate Urine VISTA NEGATIVE (< 200 ng/mL); Benzodiazepine Urine VISTA NEGATIVE (< 200 ng/mL); Cocaine Urine VISTA NEGATIVE (< 300 ng/mL); Ecstacy Urine VISTA NEGATIVE (< 500 ng/mL); Methadone Urine VISTA NEGATIVE (< 300 ng/mL); PCP Urine VISTA NEGATIVE (< 25 ng/mL); THC Urine VISTA NEGATIVE (< 50 ng/mL); Vista UDS pH Range 6
[2021-09-06 10:38] VITALS: BP 149/98; PULSE 77; RESP 16; TEMP 36.4; O2SAT 97; BMI 30.4
[2021-09-06] MEDS: Pantoprazole Sodium 40 MG Tablet PO (11:03)
[2021-09-06] MEDS: Gabapentin 300 MG Capsule PO (11:03)
[2021-09-06 13:20] VITALS: BP 146/96; PULSE 73; RESP 12; TEMP 36.4; O2SAT 96
[2021-09-06] MEDS: Buprenorphine HCl 2 MG TAB.SUBL SL ×2 (13:23→19:59)
[2021-09-06 17:13] VITALS: BP 144/93; PULSE 87; RESP 16; TEMP 36.6; O2SAT 97
[2021-09-06] MEDS: Ibuprofen 400 MG Tablet PO (17:50)
[2021-09-06] MEDS: hydrOXYzine PAM 25 MG Capsule 50 MG PO (17:50)
[2021-09-06] MEDS: cloNIDine HCl 0.1 MG Tablet PO (17:51)
[2021-09-06] MEDS: traZODone 100 MG Tablet PO (19:59)
[2021-09-06 20:00] VITALS: BP 139/108; PULSE 72; RESP 16; TEMP 36.4; O2SAT 95
[2021-09-07] VITALS: BP 147/102; PULSE 78; RESP 18; TEMP 36.8; O2SAT 97
[2021-09-07] MEDS: Gabapentin 300 MG Capsule PO ×3 (00:18→20:31)
[2021-09-07] MEDS: cloNIDine HCl 0.1 MG Tablet PO ×2 (03:06→12:19)
[2021-09-07] MEDS: Buprenorphine HCl 2 MG TAB.SUBL SL ×3 (03:06→18:41)
[2021-09-07 04:00] VITALS: BP 144/104; PULSE 87; RESP 14; TEMP 36.8; O2SAT 98
[2021-09-07 08:35] VITALS: BP 160/101; PULSE 76; RESP 16; TEMP 36.4; O2SAT 96
[2021-09-07] MEDS: Pantoprazole Sodium 40 MG Tablet PO (08:45)
[2021-09-07] MEDS: Ibuprofen 400 MG Tablet PO ×2 (08:45→18:41)
--- NOTE | 2021-09-07 10:36 | CASEMGMT ---
MAIK notified Nate, Gold Buyer of patient's admission. Catarina Giordano HEAD BONE GRINDER FLIGHT SURVEYOR
--- NOTE | 2021-09-07 10:44 | ADDICTION ---
This customs entry writer met with PT to conduct ASAM, MSE, AUDIT, DUDIT assessments and to plan for d/c. PT A+Ox4 and participated actively. All assessments completed and placed in PT's chart. PT plans to f/u with [facility] in [place], [place] for follow-up treatment services. PT did not indicate a need for transportation post d/c from [facility].
[2021-09-07 12:17] VITALS: BP 156/94; PULSE 89; RESP 16; TEMP 37; O2SAT 97
[2021-09-07] MEDS: hydrOXYzine PAM 25 MG Capsule 50 MG PO (12:19)
--- NOTE | 2021-09-07 15:25 | PCM.PN.HOSP ---
Subjective Subjective Follow-up for acute opioid use withdrawal syndrome Patient is not feeling better. He still has anxiety, insomnia and could not sleep yesterday. He states trazodone is giving mild nausea. Objective Data Objective Data Vital Signs: Vital Signs Temp Pulse Resp BP Pulse Ox 98.6 F 89 16 156/94 H 97 09/07/21 12:17 09/07/21 12:17 09/07/21 12:17 09/07/21 12:17 09/07/21 12:17 Oxygen Delivery Method Room Air Weight: 257 lb 0.944 oz Body Mass Index (BMI) 30.4 Intake & Output: Intake and Output for Last 24 Hours 09/05/21 09/06/21 09/07/21 23:59 23:59 23:59 Intake Total 720 / 720 1500 / 1500 Output Total 0 / 0 Balance 720 / 720 1500 / 1500 Lab / Micro Data Result Diagrams: 09/06/21 08:31 09/06/21 08:31 Physical Exam Narrative General: Awake, mild lethargy, anxious, oriented x3, Cooperative HEENT: Atraumatic, PERRLA, EOMI, Normocephalic Oral: No Gingival or Mucosal Lesions/ Ulcerations Neck: Supple, No JVD, Negative Carotid Bruits Lungs: Air entry diminished in bilateral lung bases. No crepitation/rhonchi Cardiovascular: Regular rate, Regular Rhythm, Normal S1, Normal S2, No murmurs Abdomen: Bowel Sounds Present, Soft, Non Tender, Non-Distended : No renal angle tenderness. No suprapubic tenderness. Extremities: No edema, Capillary Refill Less than 3 Seconds Skin: No rashes, No breakdown Musculoskeletal: No Tenderness to Palpation of Joints or Extremities Neurological: Cranial nerves II-XII grossly intact, DTR 2+/4 and Symmetrical, Neuro grossly intact Psych/Mental Status: Restless, flat affect. No hallucination or seizure Assessment & Plan Assessment/Plan (1) Opiate abuse, continuous: PLAN: 1. Acute opioid withdrawal syndrome with history of chronic opioid use disorder, dependence and tolerance: Patient is being admitted MedSurg floor. Started on buprenorphine scheduled protocol along with other adjunctive medications to control the symptoms. Wanted to consult. Patient refused for IV fluid. He expresses desire to quit opioids. 09/07: Trazodone changed to Seroquel. Continue buprenorphine as ordered. 2. Chronic cigarette smoking/nicotine dependence: On nicotine patch. 3. History of chronic hep B: Patient states he was treated for chronic hep B in the past. ALT 19 AST 9. Total bilirubin normal. 4. History of bilateral TKR VTE prophylaxis low risk early ambulation encouraged. Charges/Coding Visit Charges Inpatient E&M: 55426 Subs Hosp L2
--- NOTE | 2021-09-07 15:57 | CHAPLAIN ---
Type of Pastoral Visit _x__ Initial Visit ___ Follow-up Visit ___ On-call Visit ___ General Patient Visit ___ Spiritual Assessment ___ Family Conference ___ Bereavement ___ Rapid Response ___ Code Blue ___ Other (describe below) Pastoral Care Referral From _x__ Patient ___ Family ___ Nurse ___ Physician ___ Altitude Chamber Technician ___ Superintendent Of Schools ___ Other (describe below) Sacrament/Intervention _x__ Active listening ___ Anointing ___ Presybeterian ___ Bereavement ___ Communion ___ Heavenly exploration ___ ___ Life review _x__ Prayer ___ Reconciliation ___ Sacrament of Sick ___ Supportive presence ___ Wedding ___ Other (describe below) Pastoral Comments patient admits he needs help and prayer; pt plans to go with brother at discharge for a better outcome
[2021-09-07 16:25] VITALS: BP 136/93; PULSE 92; RESP 12; TEMP 36.4; O2SAT 100
[2021-09-07 21:11] VITALS: BP 126/88; PULSE 80; RESP 16; TEMP 36.6; O2SAT 98
[2021-09-07] MEDS: QUEtiapine 25 MG Tablet 50 MG PO (21:14)
[2021-09-08 03:18] VITALS: BP 135/95; PULSE 74; RESP 16; TEMP 36.5; O2SAT 98
[2021-09-08] MEDS: Buprenorphine HCl 2 MG TAB.SUBL SL (03:21)
--- NOTE | 2021-09-08 09:58 | NURSING ---
Pt wishing to leave, AMA documents signed and belongings accessed
--- NOTE | 2021-09-08 12:09 | DS.PCM_ITS ---
Providers Date of Admission: 09/06/21 Date of Discharge: 09/08/21 Primary Care Physician: Dr. Racheal Fabian Reason For Visit: OPOID WITHDRAWAL Diagnosis Discharge Diagnosis (1) Opiate abuse, continuous: Status: Acute Code(s): F11.10 - Opioid abuse, uncomplicated Medications at Discharge Home Medications buprenorphine-naloxone 1 tab SL DAILY 03/31/19 Hospital Course Summary of Care Provided Hospital Course: This is a 46 gentleman with history of chronic opioid use, fentanyl have gram to 1 g IV daily was admitted for symptoms of withdrawal including anxiety, restlessness, insomnia, yawning goosebumps muscle aches and pain. Patient was admitted on MedSur status in PCU. Patient did not had any seizure during hospital course. Please see H&P for detail. 1. Acute opioid withdrawal syndrome with history of chronic opioid use disorder, dependence and tolerance: Patient is being admitted MedSurg floor. Started on buprenorphine scheduled protocol along with other adjunctive me dications to control the symptoms. Wanted to consult. Patient refused for IV fluid. He expresses desire to quit opioids. On 09/07: Trazodone changed to Seroquel. On 09/08: Patient still has anxiety and difficulty falling or staying asleep. Patient signed AMA. Risks explained for signing him but he still signed it. 2. Chronic cigarette smoking/nicotine dependence: On nicotine patch. 3. History of chronic hep B: Patient states he was treated for chronic hep B in the past. ALT 19 AST 9. Total bilirubin normal. 4. History of bilateral TKR VTE prophylaxis low risk early ambulation encouraged. Patient signed AMA. Patient was explained about completion of treatment and attending outpatient drug rehab. He declined. Total time spent, exact 35 minutes on discharge meds reconciliation, examination, coordination of care with nurses and ancillary staff, review of imaging and blood test and discussion with the patient on follow-up instructions. Physical Exam Narrative Patient still feels difficulty in falling or staying asleep. Has mild anxiety. Patient advised to stay but wants to sign AMA. Seen and examined on the day of AMA Physical exam General: Awake, anxious, oriented x3, Cooperative HEENT: Atraumatic, PERRLA, EOMI, Normocephalic Oral: No Gingival or Mucosal Lesions/ Ulcerations Neck: Supple, No JVD, Negative Carotid Bruits Lungs: Air entry diminished in bilateral lung bases. No crepitation/rhonchi Cardiovascular: Regular rate, Regular Rhythm, Normal S1, Normal S2, No murmurs Abdomen: Bowel Sounds Present, Soft, Non Tender, Non-Distended : No renal angle tenderness. No suprapubic tenderness. Extremities: No edema, Capillary Refill Less than 3 Seconds Skin: No rashes, No breakdown Musculoskeletal: No Tenderness to Palpation of Joints or Extremities Neurological: Cranial nerves II-XII grossly intact, DTR 2+/4 and Symmetrical, Neuro grossly intact Psych/Mental Status: Restless, flat affect. No hallucination or seizure Weight / BMI Weight Weight: 257 lb 0.944 oz Body Mass Index (BMI) 30.4 ABG / Lab / Microbiology Data Result Diagrams: 09/06/21 08:31 09/06/21 08:31 Meaningful Use Info Meaningful Use Diagnoses (Choose all that apply): None applicable Discharge Plan Admission Admit Date/Time: 09/06/21 08:50 Attending Provider: Georges Atkins Primary Care Provider: Racheal Fabian Discharge Orders/Prescriptions Prescriptions: No Action buprenorphine-naloxone 1 EACH tablet, sublingual 1 tab SL DAILY RF: 0 Referrals / Follow Up: Racheal Fabian [Primary Care Provider] - Disposition Disposition (needs filled in before D/C Order can be placed): Against Medical Advice Charges/Coding Visit Charges Inpatient E&M: 36549 Disch Hosp
== END 2021-09-08 10:06 | disposition left against medical advice (07) | DRG 770 ==
LOC: ED 08:13 → PCU 09:59
PROVIDERS: Admitting Provider Internal Medicine; Emergency Provider Emergency Medicine; Visit Provider Internal Medicine
DX: F11.23 Opioid dependence with withdrawal (principal); F17.210 Nicotine dependence, cigarettes, uncomplicated; F41.9 Anxiety disorder, unspecified; Z86.19 Personal history of other infectious and parasitic diseases; Z96.653 Presence of artificial knee joint, bilateral; Z53.29 Procedure and treatment not carried out because of patient's decision for other reasons
CPT/HCPCS: 80053; 80307; 82077; 83735; 85025; 97802; 99283; 99406

== ENCOUNTER 2023-05-24 00:10 | Emergency (ER) | payer MEDICAID, SELFPAY ==
[2023-05-24 00:11] VITALS: BP 130/84; PULSE 79; RESP 15; TEMP 36.1; O2SAT 96; BMI 31.1
--- NOTE | 2023-05-24 00:27 | EX.ED.DYSGE1 ---
HPI History of Present Illness Chief Complaint: Anxiety Informant: patient Onset/Context/Timing Onset: Today Context: Sudden Onset Timing: Continuous Quality: Anxious Location: Generalized Worsened by: Energy drink Relieved by: Nothing Narrative Narrative: Patient presents with a panic attack that began tonight. Patient states he drank an energy drink and started having a panic attack after that. Patient states he had been walking prior to drinking the energy drink which also caused his heart rate to increase. Patient denies any suicidal or homicidal ideations. Patient states he feels anxious all over. Patient states he has a history of IV drug abuse but has been clean for almost 2 years now. Patient denies any fevers or chills. Patient denies any chest pain or shortness of breath. [facility] Medical History Amphetamine use disorder, moderate, dependence Benzodiazepine use and dependence Drug abuse Hepatitis B Hepatitis C Opiate abuse, continuous Opiate abuse, continuous Polysubstance dependence including opioid type drug, continuous use Home Medications buprenorphine 11.4 mg-naloxone 2.9 mg sublingual tablet 1 tab SL DAILY detox 03/31/19 [History Last Taken 09/05/21] Allergy/AdvReac Type Severity Reaction Status Date / Time No Known Allergies Allergy Verified 09/06/21 07:49 Surgical History Hx of total knee replacement S/P left knee surgery Social History Smoking Status: Current every day smoker tobacco type: cigarettes ROS ROS ED Constitutional Constitutional ED: Denies chills or fever(s) Eyes Eyes: Denies blurry vision or change in vision ENT ENT ED: Reports rhinorrhea; Denies sore throat Cardiovascular Cardiovascular: Denies chest pain or palpitations Respiratory/Chest Respiratory/Chest: Reports cough; Denies dyspnea Gastrointestinal Gastrointestinal: Denies nausea or vomiting Genitourinary Genitourinary ED: Denies dysuria or hematuria Musculoskeletal Musculoskeletal: Reports neck pain; Denies back pain Integumentary Denies abscess or rash Neurologic Neurologic: Denies headache(s) or weakness Psychiatric Psychiatric: Reports anxiety; Denies suicidal ideation or suicidal thoughts Allergic/Immunologic Allergic/Immunologic ED: Denies mouth swelling or urticaria EXAM Physical Exam Const Vital Signs: 05/24/23 00:11 Temperature 96.9 F L Temperature Source Temporal Pulse Rate 79 Respiratory Rate 15 Blood Pressure 130/84 H Blood Pressure Mean 99 Pulse Ox 96 Oxygen Delivery Method Room Air Positive well nourished, well developed and obese General Appearance ED: well developed and NAD Nutritional Appearance: obese HEENT Reports moist mucous membranes Neck supple and no JVD Resp normal respiratory effort and clear to auscultation bilaterally Cardio regular rate and regular rhythm GI non-distended Palpation: soft and tender RUQ; Negative for guarding or rebound tenderness present Extremity normal to inspection General Extremety ED: Negative for edema or tenderness General Extremity: Negative for edema Neuro oriented x3, CN's II-XII intact bilaterally and no sensory deficits noted Sensorium / Orientation: alert Motor Exam: strength 5/5 throughout Psych Mood & Affect: anxious MDM MDM MDM Narrative Medical decision making narrative: Differential diagnosis includes acute anxiety, stimulant use, electrolyte abnormality, urinary tract infection, and anemia. CBC will be obtained to assess for leukocytosis and anemia. Basic metabolic profile will be obtained to assess for electrolyte abnormality and renal function. Urinalysis will be obtained to assess for urinary tract infection or hematuria. Lab Data Attestation: I reviewed the patient's lab results. Lab results narrative: CBC was reviewed and was within normal limits. Basic metabolic profile was reviewed and was within normal limits. Urinalysis was reviewed. There is no evidence of urinary tract infection or hematuria. Labs: Laboratory Results - last 24 hr 05/24/23 05/24/23 01:10 01:20 WBC 7.1 RBC 4.77 Hgb 13.8 Hct 41.8 MCV 87.6 MCH 28.9 MCHC 33.0 RDW Std Deviation 39.0 RDW Coeff of Car 12.1 Plt Count 200 MPV 10.0 Immature Gran % (Auto) 0.100 Neut % (Auto) 56.1 Lymph % (Auto) 36.6 [place] % (Auto) 7.1 Eos % (Auto) 0.1 Baso % (Auto) 0.0 Absolute Neuts (auto) 4.0 Absolute Lymphs (auto) 2.58 Nucleated RBC % 0 Sodium 141 Potassium 3.9 Chloride 109 H Carbon Dioxide 29.0 Anion Gap 3 L BUN 21 H Creatinine 0.86 Estim Creat Clear Calc 151.97 Est GFR (MDRD) Af Amer 123 Est GFR (MDRD) Non-Af 101 BUN/Creatinine Ratio 24.4 H Glucose 109 H Calcium 9.1 Urine Color Yellow Urine Clarity Clear Urine pH 7.0 Ur Specific [place] 1.015 Urine Protein Negative Urine Glucose (UA) Normal Urine Ketones 5 H Urine Occult Blood Negative Urine Nitrite Negative Urine Bilirubin Negative Urine Urobilinogen 1 H Ur Leukocyte Esterase Negative Urine RBC 0 SEEN Urine WBC 0 SEEN Ur Squamous Epith Cells 0 SEEN Urine Bacteria 0 SEEN Urine Mucus 0 SEEN Treatment and Re-Evaluation :: Patient was given IV fluids. Patient was advised of his findings. Patient is feeling better on reevaluation. Patient was instructed to stop drinking energy drinks. Patient was instructed to follow-up with his primary care physician in 5 to 7 days. Patient understood and was agreeable with the plan. All questions were answered. Discharge Plan Triage Chief Complaint: Anxiety ED Provider: Grady Glez Dx/Rx/DC Orders Clinical Impression: Anxiety attack, Tobacco use disorder Instructions: ED Anxiety Reaction Prescriptions: No Action buprenorphine-naloxone 1 EACH tablet, sublingual 1 tab SL DAILY Patient Comments: Dissolve 1 tablet under the tongue once daily. Primary Care Provider: [facility] Disposition Disposition: Home, Self Care
--- OUTSIDE RECORDS SUMMARY | 2023-05-24 00:50 | XMS RPT_ITS | CCD ---
Author Name Unknown Address [address] [place] [address] Organization [facility] Care Team Providers Care [employer] Name Role Phone Adele Kelly Unavailable Keegan Anders Unavailable Nate Adames Unavailable Unavailable Adele Kelly Unavailable Adele Kelly Unavailable Nate Adames Unavailable Unavailable Adele Kelly Unavailable ANDRA JARVIS Unavailable Unavailable PHYSICIAN, NONE Unavailable Unavailable MIGUEL ANDERSON (PA) Attending UnavailMIGUEL Zamora (PA) Referring UnavailSANDIP Cerrato Attending Unavailable MIGUEL ANDERSON (PA) Attending UnavailMIGUEL Zamora (PA) Referring UnavailNiya Field Primary Care Provider Nate Adames Unavailable Unavailable Niya Camara MD Primary Care Provider Niya Camara MD Primary Care Provider Niya Camara MD Primary Care Provider Niya Camara MD Primary Care Provider Niya Camara MD Primary Care Provider NIYA CAMARA Primary Care Unavailable LENKA GAMBOA Referring Unavailable LENKA GAMBOA Referring Unavailable NIYA CAMARA Primary Care Unavailable NIYA CAMARA Primary Care Unavailable LENKA GAMBOA Referring Unavailable NIYA CAMARA Primary Care Unavailable LENKA GAMBOA Referring Unavailable NIYA CAMARA Primary Care Unavailable Medications Current Medications Medication Drug Class(es) Dates Sig (Normalized) Sig (Original) amoxicillin 875 mg / clavulanate 125 mg oral tablet (1 source) Penicillin-class Antibacterial Start: 04-23-2019 End: 05-03-2019 take 1 tablet by mouth twice daily at mealtime amoxicillin-clav ulanate (AUGMENTIN) 875-125 MG per tablet Take 1 tablet by mouth 2 times daily (with meals) for 10 days 20 tablet 0 04/23/2019 05/03/2019 Active cephalexin 500 mg oral capsule (1 source) Cephalosporin Antibacterial Start: 02-21-2022 End: 02-28-2022 take 1 capsule by mouth four times daily cephALEXin (KEFLEX) 500 MG capsule Indications: Cellulitis of left upper extremity Take 1 capsule by mouth 4 times daily for 7 days 28 capsule 0 02/21/2022 02/28/2022 Active 12 hr dextromethorphan hydrobromide 30 mg / guaiFENesin 600 mg extended release oral tablet (1 source) Uncompetitive I-sykefs-N-aspartat e Receptor Antagonist, Sigma-1 Agonist Start: 02-21-2022 End: 03-07-2022 take 30-600 mg by mouth twice daily Dextromethorphan -guaiFENesin (MUCINEX DM) 30-600 MG TB12 Indications: URI with cough and congestion Take 1 tablet by mouth 2 times daily for 14 days 28 tablet 0 02/21/2022 03/07/2022 Active gabapentin 300 mg oral capsule (7 sources) Anti-epileptic Agent gabapentin (NEURONTIN) 300 MG capsule Take 300 mg by mouth 2 times daily.. 0 Active hydrOXYzine pamoate 25 mg oral capsule (7 sources) Antihistamine take 1 capsule by mouth once daily hydrOXYzine (VISTARIL) 25 MG capsule Take 25 mg by mouth daily 0 Active QUEtiapine 100 mg oral tablet (7 sources) Atypical Antipsychotic take 1 tablet by mouth once daily QUEtiapine (SEROQUEL) 100 MG tablet Take 100 mg by mouth nightly 0 Active sulfamethoxazole 800 mg / trimethoprim 160 mg oral tablet (1 source) Dihydrofolate Reductase Inhibitor Antibacterial, Sulfonamide Antimicrobial Start: 02-21-2022 End: 02-28-2022 take 1 tablet by mouth twice daily sulfamethoxazole -trimethoprim (BACTRIM DS;SEPTRA DS) 800-160 MG per tablet Indications: Cellulitis of left upper extremity Take 1 tablet by mouth 2 times daily for 7 days 14 tablet 0 02/21/2022 02/28/2022 Active Completed/Discontinued Medications Medication Drug Class(es) Dates Sig (Normalized) Sig (Original) buprenorphine 2 mg / naloxone 0.5 mg oral strip (16 sources) Partial Opioid Agonist, Opioid Antagonist Start: 09-21-2016 SUBOXONE 2-0.5 MG FILM BUPRENORPHINE HCL-NALOXONE HCL [id number] Nate Adames Problems Active Problems Problem Classification Problem Date Documented Date Episodic/Chronic Osteoarthritis (20 sources) Osteoarthritis of knee; Translations: [Primary gonarthrosis, bilateral] Onset: 08-21-2016 08-21-2016 Chronic Other non-traumatic joint disorders (1 source) Bilateral arthritis of knees Onset: 04-01-2018 04-01-2018 Chronic Other non-traumatic joint disorders (2 sources) Pain in left wrist; Translations: [Pain in left wrist] Onset: 02-06-2022 Episodic Other non-traumatic joint disorders (1 source) Bilateral arthritis of knees Onset: 04-01-2018 04-01-2018 Residual codes; unclassified (1 source) Chronic pain Onset: 03-08-2018 Chronic Residual codes; unclassified (1 source) Pain; Translations: [Pain, unspecified] Episodic Residual codes; unclassified (1 source) Pain, unspecified; Translations: [Pain, unspecified] Onset: 02-06-2022 Episodic Residual codes; unclassified (1 source) Pain, unspecified; Translations: [Pain, unspecified] Onset: 12-12-2017 Skin and subcutaneous tissue infections (2 sources) Abscess; Translations: [Cutaneous abscess, unspecified] Onset: 02-24-2022 Episodic Past or Other Problems Problem Classification Problem Date Documented Da te Episodic/Chronic Hepatitis (2 sources) Unspecified viral hepatitis C without hepatic coma; Translations: [Unspecified viral hepatitis C without hepatic coma] Onset: 11-25-2021 Episodic Joint disorders and dislocations; trauma-related (18 sources) Other tear of medial meniscus, current injury, left knee, initial encounter; Translations: [Other tear of medial meniscus, current injury, right knee, initial encounter] Onset: 08-21-2016 12-11-2016 Episodic Nonspecific chest pain (1 source) Chest pain Episodic Other aftercare (7 sources) Other tear of medial meniscus, current injury, right knee, subsequent encounter; Translations: [Other tear of medial meniscus, current injury, right knee, subsequent encounter] Onset: 09-21-2016 09-29-2016 Episodic Other non-traumatic joint disorders (20 sources) Knee joint effusion; Translations: [Knee pain] Onset: 08-21-2016 08-21-2016 Episodic Other non-traumatic joint disorders (1 source) Effusion, left knee; Translations: [Effusion, left knee] Onset: 01-17-2017 01-26-2017 Episodic Other non-traumatic joint disorders (2 sources) Knee pain; Translations: [Pain in unspecified knee] Onset: 08-21-2016 08-21-2016 Episodic Other screening for suspected conditions (not mental disorders or infectious disease) (7 sources) Liver function tests abnormal; Translations: [Abnormal results of liver function studies] Onset: 07-19-2018 07-19-2018 Episodic Other upper respiratory infections (1 source) Acute frontal sinusitis Episodic Results Test Name Value Interpretation Reference Range Facil ity Vital Signs Date Time Vital Sign Value Performing Clinician Facility 02-24-2022 17:38-0400 Diastolic blood pressure 93 mm[Hg] Niya Camara MD Work Phone: [facility] [employer] [facility] 02-24-2022 17:38-0400 Respiratory rate 18 /min Niya Camara MD [email or web address] 02-24-2022 17:38-0400 Systolic blood pressure 154 mm[Hg] Niya Camara MD [facility] Phone[email or web address] 02-24-2022 17:25-0400 Body temperature 99 [degF] Niya Camara MD Work Phone[email or web address] 02-24-2022 17:25-0400 Heart rate 73 /min Niya Camara MD Work Phone: [email or web address] 02-24-2022 17:25-0400 SaO2% (BldA) [Mass fraction] 97 % Niya Camara MD Work Phone: [facility] [employer] 04-23-2019 11:28-0500 Diastolic blood pressure 94 mm[Hg] Niya Camara MD Work Phone: [employer] Work Phone: 04-23-2019 11:28-0500 Heart rate 93 /min Niya Camara MD Work Phone: [employer] Work Phone: 04-23-2019 11:28-0500 Respiratory rate 18 /min Niya Camara MD Work Phone: [employer] Work Phone: 04-23-2019 11:28-0500 SaO2% (BldA) [Mass fraction] 97 % Niya Camara MD Work Phone: [employer] Work Phone: 04-23-2019 11:28-0500 Systolic blood pressure 146 mm[Hg] Niya Camara MD Work Phone: [employer] Work Phone: 04-23-2019 08:52-0500 Body mass index (BMI) [Ratio] 29.05 kg/m2 Niya Camara MD Work Phone: [employer] Work Phone: 04-23-2019 08:52-0500 Body temperature 96.8 [degF] Niya Camara MD Work Phone: [employer] Work Phone: 04-23-2019 08:52-0500 Body weight 111.13 kg Niya Camara MD Work Phone: [employer] Work Phone: 08-21-2016 09:40-0400 BMI (Body Mass Index) 29.88 kg/m2 Keegan Anders [facility] Work Phone: 08-21-2016 09:40-0400 Body weight 114.31 kg Nate Adames [facility] Work Phone: 08-21-2016 09:40-0400 Height 195.58 cm Keegan Anders [facility] Work Phone: 08-21-2016 09:40-0400 Weight 114.31 kg [facility] Work Phone: Encounters Encounter Date Encounter Type Care Provider Facility Start: 02-24-2022 End: 02-24-2022 Emergency department patient visit NIYA CAMARA [facility] Start: 02-24-2022 End: 02-24-2022 Emergency department patient visit Niya Camara MD Work Phone: [facility] Emergency Department Procedures Date Procedure Procedure Detail Performing Clinician Start: 02-24-2022 Cul bact xcpt urine blood/stool aerobic isol NIYA CAMARA Start: 02-06-2022 Radex wrist complete minimum 3 views NIYA CAMARA Start: 02-06-2022 Radex wrist complete minimum 3 views Lenka Gamboa [employer] [employer] [facility] Start: 11-25-2021 Iadna hepatitis c qu ant & reverse bedspread cutter NIYA CAMARA Start: 10-31-2021 Acute hepatitis panel J OHSharmila CAMARA Start: 10-31-2021 Blood count complete auto&auto difrntl wbc NIYA CAMARA Start: 10-31-2021 C.TRACHOMATIS N.GONO RRHOEAE DNA, URINE NIYA CAMARA Start: 10-31-2021 Urnls dip stick/tabl et rgnt auto w/o microscopy NIYA CAMARA Start: 10-31-2021 Comprehensive metabo lic panel Lenka Gamboa [employer] [employer] Start: 10-31-2021 Iadna chlamydia trac homatis amplified probe tq Lenka Gamboa [employer] [employer] [facility] Start: 10-31-2021 Urnls dip stick/tabl et rgnt auto w/o microscopy Lenka Gamboa [employer] [employer] [facility] Start: 06-02-2019 Hepatitis b surf ant ibody hbsab [employer] Work Phone: Start: 06-02-2019 Hepatitis c antibody Ch hemalatha Guidry Work Phone: Start: 06-02-2019 Iaad ia hepatitis b surface antigen [employer] Work Phone: Start: 04-23-2019 Radiologic exam ches t 2 views Edmundo Galvan MD Work Phone: Start: 04-23-2019 End: 04-23-2019 Comprehensive metabolic panel Edmundo Galvan MD Work Phone: Start: 01-17-2017 End: 01-26-2017 Arthrocentesis aspir&/inj major jt/bursa w/o us Keegan Bandar Chago Work Phone: Start: 12-01-2016 End: 12-11-2016 Arthrocentesis aspir&/inj major jt/bursa w/o us Kegean Anders Work Phone: Start: 12-01-2016 End: 12-11-2016 Drain/inject, joint/bursa Keegan Anders Work Phone: Start: 08-21-2016 End: 08-21-2016 Arthrocentesis aspir&/inj major jt/bursa w/o us Keegan Anders Work Phone: Start: 08-21-2016 End: 08-21-2016 Documentation of current medications Nate Adames Start: 08-21-2016 End: 08-21-2016 Drain/inject, joint/bursa Keegan Anders Work Phone: Plan of Treatment Date Care Activity Detail Author Start: 2026 Shingles Vaccine (1 of 2) Shingles Vaccine (1 of 2) [employer] Work Phone: Start: 12-22-2021 Influenza vaccination Flu vaccine (#1) [email or web address] Start: 11-21-2021 Influenza vaccination Flu vaccine (#1) [email or web address] Start: 2021 Screening for malignant neoplasm of colon [employer] [facility] Start: 12-22-2018 Influenza vaccination Flu vaccine (#1) [employer] Work Phone: Start: 01-17-2017 End: 01-17-2017 Appointment Appointment [facility] Work Phone: Start: 09-21-2016 End: 09-21-2016 Appointment Appointment [facility] Work Phone: Start: 09-07-2016 End: 09-07-2016 Appointment Appointment [facility] Work Phone: Start: 08-21-2016 End: 08-21-2016 Mri any jt lower extrem w/o contrast matrl MRI Joint Lower Extremity [facility] Work Phone: Start: 08-21-2016 End: 08-21-2016 Radiologic exam knee complete 4/more views X-Ray, Knee [facility] Work Phone: Start: 08-21-2016 End: 08-21-2016 Mri jnt of lwr extre w/o dye MRI Joint Lower Extremity [facility] Work Phone: Start: 08-21-2016 End: 08-21-2016 X-ray exam, knee, 4 or more X-Ray, Knee [facility] Work Phone: Start: 2016 Diabetes screen Diabetes screen [employer] Phone: Start: 2016 Lipid panel Lipids [email or web address] Start: 2016 Lipid screen Lipid screen [employer] Phone: Start: 2011 Diabetes screen Diabetes screen [email or web address] Start: 1995 DTaP/Tdap/Td vaccine (1 - Tdap) DTaP/Tdap/Td vaccine (1 - Tdap) [email or web address] Start: 1991 HIV screen HIV screen [employer] Phone: Start: 1991 HIV screening HIV screen [email or web address] Start: 1988 Depression Screen Depression Screen [email or web address] Start: 1987 DTaP/Tdap/Td vaccine (1 - Tdap) DTaP/Tdap/Td vaccine (1 - Tdap) [employer] Phone: Start: 1982 Pneumococcal 0-64 years Vaccine (1 - PCV) Pneumococcal 0-64 years Vaccine (1 - PCV) [email or web address] Start: 1982 Pneumococcal 0-64 years Vaccine (1 of 1 - PPSV23) Pneumococcal 0-64 years Vaccine (1 of 1 - PPSV23) [employer] Phone: Start: 1981 COVID-19 Vaccine (1) COVID-19 Vaccine (1) [email or web address] Start: 1976 COVID-19 Vaccine (#1) COVID-19 Vaccine (#1) [employer] C.trachomatis N.gonorrhoeae DNA, Urine C.trachomatis N.gonorrhoeae DNA, Urine Microbiology Routine 10/31/2021 1:09 PM EDT [employer] Phone: End: 02-24-2022 Culture, Wound Aerobic Only [employer] Phone: Payers Date Payer Category Payer Unknown [id number] 2015 Unknown [facility] MEDICA[facility] xxxxxxxxxxx 2015-Present [phone] CLAIMS DEPARTMENT [address] [place] [address] xxxxxxxxxxx [id number] 1976 Unknown [id number] 1976 Unknown [id number] 1976 Unknown [id number] 1976 Unknown [id number] 1976 Unknown [id number] 1975 Unknown [id number] Social History Date Type Detail Facility Start: 03-28-2018 End: 04-23-2019 Tobacco smoking status NHIS Current every day smoker [employer] Phone: History of tobacco use Cigarette Smoker [employer] Phone: Start: 03-28-2018 End: 04-23-2019 Cigarettes smoked current (pack per day) - Reported [employer] Phone: Start: 04-23-2019 End: 02-24-2022 Alcohol intake Ex-drinker (finding) [employer] Phone: Start: 03-28-2018 Tobacco Comment 20 YEARS [employer] Phone: Start: 1975 Sex Assigned At Not on file [employer] Phone: Start: 03-28-2018 Tobacco use and exposure Smoke less tobacco non-user [employer] Phone: Start: 02-24-2022 History SDOH Alcohol Frequency 1 [employer] Phone: Start: 02-24-2022 History SDOH Alcohol Std Drinks 0 [employer] Phone: Start: 02-14-2022 End: 02-24-2022 Exposure to SARS-CoV-2 (event) Not sure [facility] Phone: Hospital Discharge instructions 02-24-2022 Discharge InstructionsAttachments Note Date & Type Note Facility 02-24-2022 Hospital Discharg e instructions BERENICE Flores CNP - 02/24/2022 6:49 PM EDT Return to the ER for any worsening symptoms Continue taking Keflex and Bactrim as directed from urgent care Follow-up with your PCP and neurosurgery for further evaluation The following attachments cannot be sent through Care Everywhere.Abscess: Skin (Micronesian)documented in this encounter [employer] Phone: Evaluation note Note Date & Type Note Facility documented in this encounter [facility] Phone: Evaluation note Note Date & Type Note Facility documented in this encounter [employer] Phone: Evaluation note Note Date & Type Note Facility documented in this encounter [facility] [employer] Phone: Hospital Discharge instructions Attachments Note Date & Type Note Facility Hospital Discharge instructions The following attachments cannot be sent through Care Everywhere.Sinusitis (Micronesian)Chest Pain (Micronesian)documented in this encounter [employer] Phone: Summary Purpose Family History No Family History Records FoundNo Family History Records FoundNo Family History Records FoundNo Family History Records Found Advance Directives No Advanced Directives Records FoundDocuments on File Type Date Recorded Patient Entertainment Reporter Expl anation Advance Directives and Living Will Power of Laboratory Inspector Latest Code Status on File Code Status Date Activated Date Inactivated Comments Full Code 07/19/2018 2:05 AM 07/21/2018 3:58 PM Full Code 04/01/2018 6:09 PM 04/04/2018 1:45 PM Full Code 04/01/2018 11:17 AM 04/01/2018 6:05 PM Documents on File Type Date Recorded Patient Entertainment Reporter Expl anation ACP-Advance Directive ACP-Power of Laboratory Inspector Hospital Course Note Patient Name: hBupendra Nichols ate of : 1975 Date: 04/01/18 Discharge Summary Admit date: 04/01/2018 Discharge date and time: 04/04/18 Admitting Physician: Andra Jarvis MD Admission Diagnoses: Bilateral knee osteoarthritis [...] The patient will notify me for any inc (more content not included)... Additional Source Comments (unrecognized sect ion and content) No Status Records FoundNo Status Records FoundNo Status Records FoundNo Status Records Found INFORMATION SOURCE (unrecogn ized section and content) DATE CREATED AUTHOR AUTHOR'S ORGANIZ ATION 05/22/2018 [facility] DATE CREATED AUTHOR AUTHOR'S ORGANIZ ATION 09/11/2018 [facility] DATE CREATED AUTHOR AUTHOR'S ORGANIZ ATION 02/27/2022 [facility] Reason for Visit (unrecogniz ed section and content) Reason Comments Abscess Pt presents to ED wi th left forearm abscess. Pt started on antibiotics from urgent care. Pt states he started having itching on Sunday Care Teams (unrecognized sec tion and content) [employer] Relationship Specialty Start Date End Date Niya Camara MD [address] [facility] [address] [place] [address] PCP - General Hospitalist 07/22/18 [employer] Relationship Specialty Start Date End Date Niya Camara MD [address] [facility] [address] [place] [address] PCP - General Hospitalist 07/22/18 [employer] Relationship Specialty Start Date End Date Niya Camara MD [address] [facility] [address] [place] [address] PCP - General Hospitalist 07/22/18 [employer] Relationship Specialty Start Date End Date [facility] Scheduled Active and Recently Administ ered Medications (unrecognized section and content) FOR RECORDS PERTAINING TO PATIENTS WHO ARE OR HAVE BEEN ENROLLED IN A CHEMICAL DEPENDENCY/SUBSTANCEABUSE PROGRAM, SOME INFORMATION MAY BE OMITTED. This clinical summary was aggregated from multiple sources. Caution should be exercised in using it in the provision of clinical care. This summary normalizes information from multiple sources, and as a consequence, information in this document may materially change the coding, format and clinical context of patient data. In addition, data may be omitted in some cases. CLINICAL DECISIONS SHOULD BE BASED ON THE PRIMARY CLINICAL RECORDS. [facility] [employer] [facility]. provides no warranty or guarantee of the accuracy or completeness of information in this document.
[2023-05-24 01:13] LABS: Bacteria 0 SEEN /hpf (None Seen); Mucous, Urine 0 SEEN /hpf (<or=2+); Red Blood Cells-Urine 0 SEEN /hpf (0-5); Squamous Epithelial Cells - UA 0 SEEN /hpf (0-5); White Blood Cells 0 SEEN /hpf (0-5)
[2023-05-24] MEDS: 0.9% Normal Saline (1000mL) 1,000 ML 1000 ML IV (01:20)
[2023-05-24 01:27] LABS: Absolute Lymphocyte Count 2.58 X10^3/uL (0.83-4.51); Eosinophil# 0.01 X10^3/uL; Eosinophils% 0.1 % (0-5); Hematocrit 41.8 % (40-54); Hemoglobin 13.8 g/dL (13.0-16.5); Lymphocyte # 2.58 X10^3/ul (0.83-4.51); Lymphocyte % 36.6 % (19-41); Mean Corpuscular Hgb 28.9 pg (27.0-32.0); Mean Corpuscular Volume 87.6 fL (80-94); Monocyte% 7.1 % (0-10); NRBC Flagged by Analyzer 0 % (0-5); Neutrophil # 3.95 X10^3/uL (2.7-7.7); Neutrophil % 56.1 % (47-70); Platelet Count 200 K/mm3 (150-450); RBC Distribution Width CV 12.1 % (11.6-14.6); Red Blood Count 4.77 M/mm3 (4.6-6.2); White Blood Count 7.1 K/mm3 (4.4-11.0)
[2023-05-24 01:30] LABS: Color, Urine Yellow (Yellow); Glucose, Dipstick Normal (Normal); Ketone-Dipstick 5 mg/dl (Negative); Leukocyte Esterase-Dipstick Negative /ul (Negative); Nitrite-Dipstick Negative (Negative); Occult Blood-Urine Negative /ul (Negative); Protein-Dipstick Negative (Negative); Specific Gravity, Urine 1.015 (1.002-1.030); Urine Bilirubin Dipstick Negative (Negative); Urine Clarity Clear (Clear); Urine Urobilinogen 1 mg/dl (Normal)
[2023-05-24 01:41] LABS: Anion Gap 3 (5-15); BUN 21 mg/dL (7-18); BUN/Creat Ratio 24.4 RATIO (10-20); Calcium,Total 9.1 mg/dL (8.5-10.1); Chloride 109 mmol/L (98-107); Creatinine, Serum 0.86 mg/dL (0.70-1.30); EST Glomerular Filtration Rate 101 mL/min (>60); Est Glom Filt Rate - Afr Amer 123 mL/min (>60); Estimated Creatinine Clearance 151.97 ml/min; Glucose 109 mg/dL (74-106); Potassium 3.9 mmol/L (3.5-5.1); Sodium Level 141 mmol/L (136-145)
[2023-05-24 02:40] VITALS: BP 110/75; PULSE 80; RESP 18; O2SAT 96
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
== END 2023-05-24 02:41 | disposition home or self-care (01) ==
PROVIDERS: Emergency Provider Emergency Medicine; Visit Provider Emergency Medicine
DX: F41.9 Anxiety disorder, unspecified (principal); F17.210 Nicotine dependence, cigarettes, uncomplicated; B19.10 Unspecified viral hepatitis B without hepatic coma; B19.20 Unspecified viral hepatitis C without hepatic coma
CPT/HCPCS: 80048; 81001; 85025; 96360; 99282; J7030; A4216

== ENCOUNTER 2023-05-27 08:23 | Emergency (ER) | payer MEDICAID, SELFPAY ==
[2023-05-27 08:24] VITALS: BP 164/100; PULSE 73; RESP 16; TEMP 36.4; O2SAT 98; BMI 29.7
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
[2023-05-27 09:54] LABS: Absolute Lymphocyte Count 1.72 X10^3/uL (0.83-4.51); Absolute Neutrophil Count 5.3 X10^3/uL (2.0-7.7); Basophil# 0.01 X10^3/uL; Basophil% 0.1 % (0-1); Hematocrit 45.3 % (40-54); Hemoglobin 15.5 g/dL (13.0-16.5); Lymphocyte # 1.72 X10^3/ul (0.83-4.51); Lymphocyte % 23.5 % (19-41); Mean Corp Hgb Conc 34.2 g/dL (32-36); Mean Corpuscular Hgb 29.4 pg (27.0-32.0); Mean Platelet Vol. 10.1 fl (6.2-12.0); Monocyte% 4.1 % (0-10); NRBC Flagged by Analyzer 0 % (0-5); Neutrophil # 5.28 X10^3/uL (2.7-7.7); Neutrophil % 72.2 % (47-70); Platelet Count 188 K/mm3 (150-450); RBC Distribution Width CV 12.1 % (11.6-14.6); RBC Distribution Width SD 38.3 fl (35.1-43.9); Red Blood Count 5.27 M/mm3 (4.6-6.2); White Blood Count 7.3 K/mm3 (4.4-11.0)
[2023-05-27 10:06] LABS: Amphetamine Urine VISTA NEGATIVE (<1000 ng/mL); Barbiturate Urine VISTA NEGATIVE (< 200 ng/mL); Benzodiazepine Urine VISTA NEGATIVE (< 200 ng/mL); Cocaine Urine VISTA NEGATIVE (< 300 ng/mL); Ecstacy Urine VISTA NEGATIVE (< 500 ng/mL); Methadone Urine VISTA NEGATIVE (< 300 ng/mL); PCP Urine VISTA NEGATIVE (< 25 ng/mL); THC Urine VISTA NEGATIVE (< 50 ng/mL); Vista UDS pH Range 4
[2023-05-27 10:07] LABS: Alcohol, Blood (Medical)-Serum < 3.0 mg/dL
[2023-05-27 10:08] LABS: Anion Gap 3 (5-15); BUN 17 mg/dL (7-18); BUN/Creat Ratio 24.6 RATIO (10-20); Calcium,Total 9.3 mg/dL (8.5-10.1); Chloride 111 mmol/L (98-107); Creatinine, Serum 0.69 mg/dL (0.70-1.30); EST Glomerular Filtration Rate 130 mL/min (>60); Est Glom Filt Rate - Afr Amer 157 mL/min (>60); Estimated Creatinine Clearance 185.19 ml/min; Glucose 105 mg/dL (74-106); Potassium 3.9 mmol/L (3.5-5.1); Sodium Level 139 mmol/L (136-145)
--- OUTSIDE RECORDS SUMMARY | 2023-05-27 10:42 | XMS RPT_ITS | CCD ---
Author Name Unknown Address [address] [place] [address] Organization [facility] Care Team Providers Care Script Developer Name Role Phone Adele Kelly Unavailable Keegan [...] extended release oral tablet (1 source) Uncompetitive W-uybbdz-F-aspartat e Receptor Antagonist, Sigma-1 Agonist Start: 02-21-2022 [...] SUBOXONE 2-0.5 MG FILM BUPRENORPHINE HCL-NALOXONE HCL [id number] Nate Adames Problems Active Problems Problem Classification [...] 93 mm[Hg] Niya Camara MD Work Phone: [facility] [employer] [facility] 02-24-2022 17:38-0400 Respiratory rate 18 /min Niya Camara MD [facility] 02-24-2022 17:38-0400 Systolic blood pressure 154 mm[Hg] Niya Camara MD Work Phone: [facility] 02-24-2022 17:25-0400 Body temperature 99 [degF] Niya Camara MD Work Phone: [facility] 02-24-2022 17:25-0400 Heart rate 73 /min Niya Camara MD Work Phone: [facility] 02-24-2022 17:25-0400 SaO2% (BldA) [Mass fraction] 97 % Niya Camara MD Work Phone: [facility] [employer] 04-23-2019 11:28-0500 Diastolic blood pressure 94 mm[Hg] Niya Camara MD Work Phone: [employer] Work Phone: 04-23-2019 11:28-0500 Heart rate 93 /min Niya Camara MD Work Phone: [employer] Work Phone: 04-23-2019 11:28-0500 Respiratory rate 18 /min Niya Camara MD Work Phone: [employer] Work Phone: 04-23-2019 11:28-0500 SaO2% (BldA) [Mass fraction] 97 % Niya Camara MD Work Phone: [employer] Work Phone: 04-23-2019 11:28-0500 Systolic blood pressure 146 mm[Hg] Niya Camara MD Work Phone: [employer] Work Phone: 04-23-2019 08:52-0500 Body mass index (BMI) [Ratio] 29.05 kg/m2 Niya Camara MD Work Phone: [employer] Work Phone: 04-23-2019 08:52-0500 Body temperature 96.8 [degF] Niya Camara MD Work Phone: [employer] Work Phone: 04-23-2019 08:52-0500 Body weight 111.13 kg Niya Camara MD Work Phone: [employer] Work Phone: 08-21-2016 09:40-0400 BMI (Body Mass Index) 29.88 kg/m2 Keegan Anders [facility] Work Phone: 08-21-2016 09:40-0400 Body weight 114.31 kg Nate Adames [facility] Work Phone: 08-21-2016 09:40-0400 Height 195.58 cm Keegan Anders [facility] Work Phone: 08-21-2016 09:40-0400 Weight 114.31 kg [facility] Work Phone: Encounters Encounter Date Encounter Type Care Provider Facility Start: 02-24-2022 End: 02-24-2022 Emergency department patient visit NIYA CAMARA [facility] Start: 02-24-2022 End: 02-24-2022 Emergency department patient visit Niya Camara MD Work Phone: [facility] Emergency Department Procedures Date Procedure Procedure Detail Performing Clinician Start: 02-24-2022 Cul bact xcpt urine blood/stool aerobic isol NIYA CAMARA Start: 02-06-2022 Radex wrist complete minimum 3 views NIYA CAMARA Start: 02-06-2022 Radex wrist complete minimum 3 views Lenka Gamboa FITTER TYPE BAR AND SEGMENT - DRESSAGE JUDGE Start: 11-25-2021 Iadna hepatitis c qu ant & reverse mortgage loan interviewer NIYA CAMARA Start: 10-31-2021 Acute hepatitis panel J OHSharmila CAMARA Start: 10-31-2021 Blood count complete auto&auto difrntl wbc NIYA CAMARA Start: 10-31-2021 C.TRACHOMATIS N.GONO RRHOEAE DNA, URINE NIYA CAMARA Start: 10-31-2021 Urnls dip stick/tabl et rgnt auto w/o microscopy NIYA CAMARA Start: 10-31-2021 Comprehensive metabo lic panel Lenka Gamboa FITTER TYPE BAR AND SEGMENT - DRESSAGE JUDGE Start: 10-31-2021 Iadna chlamydia trac homatis amplified probe tq Lenka Gamboa FITTER TYPE BAR AND SEGMENT - DRESSAGE JUDGE Start: 10-31-2021 Urnls dip stick/tabl et rgnt auto w/o microscopy Lenka Gamboa FITTER TYPE BAR AND SEGMENT - DRESSAGE JUDGE Start: 06-02-2019 Hepatitis b surf ant ibody [...] 12-11-2016 Arthrocentesis aspir&/inj major jt/bursa w/o us Keegan Anders Work Phone: Start: 12-01-2016 End: 12-11-2016 [...] of 2) Shingles Vaccine (1 of 2) [employer] Work Phone: Start: 12-22-2021 Influenza vaccination Flu vaccine (#1) [facility] Start: 11-21-2021 Influenza vaccination Flu vaccine (#1) [facility] Start: 2021 Screening for malignant neoplasm of colon [facility] Start: 12-22-2018 Influenza vaccination Flu vaccine (#1) [employer] Work Phone: Start: 01-17-2017 End: 01-17-2017 Appointment Appointment [facility] Work Phone: Start: 09-21-2016 End: 09-21-2016 Appointment Appointment [facility] Work Phone: Start: 09-07-2016 End: 09-07-2016 Appointment Appointment [facility] Work Phone: Start: 08-21-2016 End: 08-21-2016 Mri any jt lower extrem w/o contrast matrl MRI Joint Lower Extremity [facility] Work Phone: Start: 08-21-2016 End: 08-21-2016 Radiologic exam knee complete 4/more views X-Ray, Knee [facility] Work Phone: Start: 08-21-2016 End: 08-21-2016 Mri jnt of lwr extre w/o dye MRI Joint Lower Extremity [facility] Work Phone: Start: 08-21-2016 End: 08-21-2016 X-ray exam, knee, 4 or more X-Ray, Knee [facility] Work Phone: Start: 2016 Diabetes screen Diabetes screen [employer] Phone: Start: 2016 Lipid panel Lipids [facility] Start: 2016 Lipid screen Lipid screen [employer] Phone: Start: 2011 Diabetes screen Diabetes screen [facility] Start: 1995 DTaP/Tdap/Td vaccine (1 - Tdap) DTaP/Tdap/Td vaccine (1 - Tdap) [facility] Start: 1991 HIV screen HIV screen [employer] Phone: Start: 1991 HIV screening HIV screen [facility] Start: 1988 Depression Screen Depression Screen [facility] Start: 1987 DTaP/Tdap/Td vaccine (1 - Tdap) DTaP/Tdap/Td vaccine (1 - Tdap) [employer] Phone: Start: 1982 Pneumococcal 0-64 years Vaccine (1 - PCV) Pneumococcal 0-64 years Vaccine (1 - PCV) [facility] Start: 1982 Pneumococcal 0-64 years Vaccine (1 of 1 - PPSV23) Pneumococcal 0-64 years Vaccine (1 of 1 - PPSV23) [employer] Phone: Start: 1981 COVID-19 Vaccine (1) COVID-19 Vaccine (1) [facility] Start: 1976 COVID-19 Vaccine (#1) COVID-19 Vaccine (#1) [employer] C.trachomatis N.gonorrhoeae DNA, Urine C.trachomatis N.gonorrhoeae DNA, Urine Microbiology Routine 10/31/2021 1:09 PM EDT [facility] Phone: End: 02-24-2022 Culture, Wound Aerobic Only [facility] Phone: Payers Date Payer Category Payer Unknown [id number] 2015 Unknown [facility] MEDICAID xxxxxxxxxxx 2015-Present [phone] CLAIMS DEPARTMENT [address] [place] [address] xxxxxxxxxxx [id number] 1976 Unknown [id number] 1976 Unknown [id number] 1976 Unknown [id number] 1976 Unknown [id number] 1976 Unknown [id number] 1976 Unknown [id number] Social History Date Type Detail Facility Start: 03-28-2018 End: 04-23-2019 Tobacco smoking status NHIS Current every day smoker [employer] Phone: History of tobacco use Cigarette Smoker [facility] Phone: Start: 03-28-2018 End: 04-23-2019 Cigarettes smoked current (pack per day) - Reported [employer] Phone: Start: 04-23-2019 End: 02-24-2022 Alcohol intake Ex-drinker (finding) [employer] Phone: Start: 03-28-2018 Tobacco Comment 20 YEARS [employer] Phone: Start: 1975 Sex Assigned At Not on file [facility] Phone: Start: 03-28-2018 Tobacco use and exposure Smoke less tobacco non-user [facility] Phone: Start: 02-24-2022 History SDOH Alcohol Frequency 1 [facility] Phone: Start: 02-24-2022 History SDOH Alcohol Std Drinks 0 [facility] Phone: Start: 02-14-2022 End: 02-24-2022 Exposure to SARS-CoV-2 (event) Not sure [facility] Phone: Hospital Discharge instructions 02-24-2022 Discharge InstructionsAttachments Note Date & Type Note Facility 02-24-2022 Hospital Discharg e instructions BERENICE Flores CNP - 02/24/2022 6:49 PM EDT Return to the ER for any worsening symptoms Continue taking Keflex and Bactrim as directed from urgent care Follow-up with your PCP and neurosurgery for further evaluation The following attachments cannot be sent through Care Everywhere.Abscess: Skin (Nicaraguan)documented in this encounter [facility] Phone: Evaluation note Note Date & Type Note Facility documented in this encounter [employer] Phone: Evaluation note Note Date & Type Note Facility documented in this encounter [facility] Phone: Evaluation note Note Date & Type Note Facility documented in this encounter [facility] [employer] Phone: Hospital Discharge instructions Attachments Note Date & Type Note Facility Hospital Discharge instructions The following attachments cannot be sent through Care Everywhere.Sinusitis (Nicaraguan)Chest Pain (Nicaraguan)documented in this encounter [employer] Phone: Summary Purpose Family History No Family History Records FoundNo Family History Records FoundNo Family History Records FoundNo Family History Records Found Advance Directives No Advanced Directives Records FoundDocuments on File Type Date Recorded Patient Automotive Technician Instructor Expl anation Advance Directives and Living Will Power of Cadmium Burner Latest Code Status on File Code Status Date Activated Date Inactivated Comments Full Code 07/19/2018 2:05 AM 07/21/2018 3:58 PM Full Code 04/01/2018 6:09 PM 04/04/2018 1:45 PM Full Code 04/01/2018 11:17 AM 04/01/2018 6:05 PM Documents on File Type Date Recorded Patient Automotive Technician Instructor Expl anation ACP-Advance Directive ACP-Power of Cadmium Burner Hospital Course Note Patient Name: Bhupendra Nichols ate of : 1975 Date: 04/01/18 [...] DATE CREATED AUTHOR AUTHOR'S ORGANIZ ATION 05/22/2018 [facility] DATE CREATED AUTHOR AUTHOR'S ORGANIZ ATION 09/11/2018 [facility] DATE CREATED AUTHOR AUTHOR'S ORGANIZ ATION 02/27/2022 [facility] Reason for Visit (unrecogniz ed section and content) Reason Comments Abscess Pt presents to ED wi th left forearm abscess. Pt started on antibiotics from urgent care. Pt states he started having itching on Sunday Care Teams (unrecognized sec tion and content) Script Developer Relationship Specialty Start Date End Date Niya Camara MD [address] [facility] [address] [place] [address] PCP - General Hospitalist 07/22/18 Script Developer Relationship Specialty Start Date End Date Niya Camara MD [address] [facility] [address] [place] [address] PCP - General Hospitalist 07/22/18 Script Developer Relationship Specialty Start Date End Date Niya Camara MD [address] [facility] [address] [place] [address] PCP - General Hospitalist 07/22/18 Script Developer Relationship Specialty Start Date End Date Niya Camara MD [facility]CP - [facility] 07/22/18 Scheduled Active and Recently Administ ered [...] BE BASED ON THE PRIMARY CLINICAL RECORDS. [facility] [employer] [facility]. provides no warranty or guarantee of the accuracy or completeness of information in this document.
--- NOTE | 2023-05-27 11:13 | ED.RN ---
Patient left without discharge in place. Physician notified of patient leaving.
== END 2023-05-27 11:16 | disposition left against medical advice (07) ==
LOC: ED 10:37
PROVIDERS: Emergency Provider Emergency Medicine; Visit Provider Emergency Medicine
DX: F30.9 Manic episode, unspecified (principal); F22 Delusional disorders; F17.210 Nicotine dependence, cigarettes, uncomplicated; Z96.659 Presence of unspecified artificial knee joint
CPT/HCPCS: 80048; 80307; 80320; 85025; 99282; G0480

== ENCOUNTER 2023-07-17 10:01 | Emergency (ER) | payer MEDICAID, SELFPAY ==
[2023-07-17] VITALS (55 sets, daily range): BP systolic 106–182; BP diastolic 65–151; PULSE 87–115; RESP 12–26; TEMP 36.6–36.7; O2SAT 95–100; BMI 28.3
--- NOTE | 2023-07-17 10:11 | CT_ITS ---
EXAM: CT HEAD WITHOUT INTRAVENOUS CONTRAST CLINICAL INDICATION: mental status change TECHNIQUE: Multiple axial images were obtained of the head without intravenous contrast. This CT exam was performed using one or more of the following dose reduction techniques: automated exposure control, adjustment of the mA and/or kV according to patient size, and/or use of iterative reconstruction technique. COMPARISON: No relevant prior studies available. FINDINGS: BRAIN AND EXTRA-AXIAL SPACES: Normal. Normal brain attenuation. No intra- or extra-axial hemorrhage. No acute infarct. No intracranial mass or mass effect. There is preservation of the zhao/white matter interface. Posterior fossa structures are unremarkable. Ventricles are appropriate for age. No hydrocephalus. Basal cisterns are patent. BONES/JOINTS: Normal calvarium. SINUSES: No acute sinusitis. MASTOID AIR CELLS: Normal. Clear. CT/Brain/Head without Contrast IMPRESSION: Normal CT brain without intravenous contrast. Electronically Signed: Juliano Chavez MD at 11:51 EDT ,
--- NOTE | 2023-07-17 10:12 | EX.ED.DYSGE1 ---
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 Patient apparently was arrested last evening and was in halfway from 6 PM until this morning. Apparently had some bizarre behavior at the time and had to be escorted out of halfway. He apparently then came back to halfway and attempted to interiano one of the officers. Patient has history of drug abuse. He admits occasional alcohol use. He denies feeling suicidal or homicidal. He denies auditory or visual hallucinations. Somewhat of a poor historian and has flight of ideas. Patient apparently was arrested for disorderly conduct and had a warrant out for his arrest. Nursing staff was able to contact patient's mother and apparently patient has a bed available at a psychiatric facility that he was supposed to go to today. Apparently has history of schizophrenia. [facility] Medical History Amphetamine use disorder, moderate, dependence Benzodiazepine use and dependence Drug abuse Hepatitis B Hepatitis C Opiate abuse, continuous Opiate abuse, continuous Polysubstance dependence including opioid type drug, continuous use Home Medications buprenorphine 8 mg-naloxone 2 mg sublingual film 2 film sublingual DAILY opiod dependence 05/27/23 [History Last Taken Unknown] Allergy/AdvReac Type Severity Reaction Status Date / Time No Known Allergies Allergy Verified 05/27/23 08:24 Surgical History Hx of total knee replacement S/P left knee surgery Social History Smoking Status: Current every day smoker tobacco type: cigarettes EXAM Physical Exam Const Vital Signs: 07/17/23 10:02 07/17/23 11:02 Temperature 97.8 F 98.1 F Temperature Source Temporal Temporal Pulse Rate 96 92 Respiratory Rate 18 17 Blood Pressure 137/78 H 167/101 H Blood Pressure Mean 97 123 Pulse Ox 97 100 Oxygen Delivery Method Room Air Room Air Positive well nourished and well developed General Appearance ED: well developed and NAD HEENT Reports TM's clear and moist mucous membranes normocephalic and atraumatic; Negative for trauma or tenderness Tympanic Membrane ED: Yes TM's clear Eyes PERRL and EOMs intact bilaterally General Eye ED: Negative for pale conjunctiva or scleral icterus Neck no lymphadenopathy, supple and no JVD General: Negative for tenderness Chest Wall inspection of chest normal and palpation of chest normal Chest: Negative for tenderness Resp normal respiratory effort and clear to auscultation bilaterally Effort and Inspection: Negative for respiratory distress or pain with movement Auscultation: Negative for rhonchi, wheezes or diminished lung sounds Cardio regular rate, regular rhythm, S1 normal heart sound, S2 normal heart sound and no murmurs Peripheral Pulses: pulses 2+ throughout GI normal to inspection, nondistended, normoactive bowel sounds, soft to palpation, non-tender, non-distended and no masses Back/Spine no CVA tenderness and no thoracic nor lumbar tenderness Extremity normal to inspection General Extremety ED: Negative for edema General Extremity: Negative for edema Neuro oriented x3, CN's II-XII intact bilaterally, no sensory deficits noted and gait normal Neuro Narrative: Mental status change with bizarre behavior Sensorium / Orientation: awake, alert, oriented to person, oriented to place and oriented to time Motor Exam: strength 5/5 throughout and strength abnormal Psych mental status grossly normal Skin no rashes or lesions noted and no wounds MDM MDM MDM Narrative Medical decision making narrative: Patient presents with police escort pink slipped. Came to light that has significant mental health issues and was supposed to be admitted to mental health facility today. Patient cooperative at this time. He is medically cleared based on lab workup. He has CBC with differential showing of 8.5 with hemoglobin 14 and platelet count of 220. Chemistries unremarkable. LFTs were normal. Urinalysis was normal. Talk screen was negative and alcohol was negative. We did obtain a CT scan of the brain without contrast that on my interpretation I do not appreciate any significant abnormalities such as intracranial hemorrhage. CT scan was unremarkable. Patient continued to decompensate and was given milligram of Ativan. He continued to refuse to follow rules and stay in bed. He apparently had defecated and started throwing across the room and then was wiping it on his face. Patient had to be physically and chemically restrained. He was given Geodon 20 mg IM. Patient will require transfer to psychiatric facility for definitive care. Lab Data Attestation: I reviewed the patient's lab results. Labs: Laboratory Results - last 24 hr 07/17/23 07/17/23 07/17/23 10:06 10:20 10:55 WBC 8.5 RBC 4.80 Hgb 14.0 Hct 41.9 MCV 87.3 MCH 29.2 MCHC 33.4 RDW Std Deviation 39.8 RDW Coeff of Car 12.5 Plt Count 220 MPV 9.7 Immature Gran % (Auto) 0.400 Neut % (Auto) 69.8 Lymph % (Auto) 21.6 [place] % (Auto) 8.1 Eos % (Auto) 0.0 Baso % (Auto) 0.1 Absolute Neuts (auto) 5.9 Absolute Lymphs (auto) 1.84 Nucleated RBC % 0 Sodium 140 Potassium 4.1 Chloride 105 Carbon Dioxide 27.0 Anion Gap 8 BUN 11 Creatinine 0.76 Estim Creat Clear Calc 164.62 Est GFR (MDRD) Af Amer 140 Est GFR (MDRD) Non-Af 116 BUN/Creatinine Ratio 14.4 Glucose 101 Calcium 9.5 Total Bilirubin 0.50 AST 17 ALT 38 Alkaline Phosphatase 88 Total Protein 7.2 Albumin 3.8 Globulin 3.4 Albumin/Globulin Ratio 1.1 Urine Color Yellow Urine Clarity Clear Urine pH 6.5 Ur Specific [place] 1.020 Urine Protein 15 H Urine Glucose (UA) Normal Urine Ketones Negative Urine Occult Blood 10 H Urine Nitrite Negative Urine Bilirubin Negative Urine Urobilinogen Normal Ur Leukocyte Esterase 25 H Urine RBC 0-5 SEEN Urine WBC 0-5 SEEN Ur Squamous Epith Cells 0 SEEN Urine Bacteria 0 SEEN Urine Mucus 0 SEEN Urine Opiates Screen NEGATIVE Urine Methadone Screen NEGATIVE Ur Barbiturates Screen NEGATIVE Ur Phencyclidine Scrn NEGATIVE Ur Amphetamines Screen NEGATIVE MDMA (Ecstasy) Screen NEGATIVE U Benzodiazepines Scrn NEGATIVE Urine Cocaine Screen NEGATIVE U Cannabinoids Screen NEGATIVE Ur Drug Screen Comment Ethyl Alcohol < 3.0 POC Glucose 107 H Radiography Diagnostic Testing: Clinical Impression(s) from Imaging Studies Brain CT 07/17/23 10:11 IMPRESSION: Normal CT brain without intravenous contrast. Electronically Signed: Juliano Chavez MD at 11:51 EDT , Discharge Plan Triage Chief Complaint: Alt LOC ED Provider: Ungur,Remus Dx/Rx/DC Orders Clinical Impression: Abnormal behavior, Hx of schizophrenia Prescriptions: No Action buprenorphine-naloxone 8-2 mg film 2 film sublingual DAILY Patient Comments: DISSOLVE 2 films UNDER THE TONGUE EVERY DAY DIRECTED Primary Care Provider: [facility] Racheal Lyons Referrals: [facility],Racheal Fabian [Primary Care Provider] - Disposition Disposition: Psychiatric Hospital or Unit
--- NOTE | 2023-07-17 10:22 | ED.RN ---
THIS RN STRIPPED PT DOWN. PT STATES HAS METH IN SHORTS. NO DRUGS OR PARAPHERNALIA FOUND. INFO RECIEVED FROM PT MOTHER. [facility]
[2023-07-17 10:23] LABS: Bedside Glucose 107 mg/dL (74-106)
[2023-07-17 10:27] LABS: Absolute Lymphocyte Count 1.84 X10^3/uL (0.83-4.51); Absolute Neutrophil Count 5.9 X10^3/uL (2.0-7.7); Basophil# 0.01 X10^3/uL; Basophil% 0.1 % (0-1); Hematocrit 41.9 % (40-54); Lymphocyte # 1.84 X10^3/ul (0.83-4.51); Lymphocyte % 21.6 % (19-41); Mean Corp Hgb Conc 33.4 g/dL (32-36); Mean Corpuscular Hgb 29.2 pg (27.0-32.0); Mean Corpuscular Volume 87.3 fL (80-94); Mean Platelet Vol. 9.7 fl (6.2-12.0); Monocyte# 0.69 X10^3/uL; Monocyte% 8.1 % (0-10); NRBC Flagged by Analyzer 0 % (0-5); Neutrophil # 5.94 X10^3/uL (2.7-7.7); Neutrophil % 69.8 % (47-70); Platelet Count 220 K/mm3 (150-450); RBC Distribution Width CV 12.5 % (11.6-14.6); RBC Distribution Width SD 39.8 fl (35.1-43.9); White Blood Count 8.5 K/mm3 (4.4-11.0)
[2023-07-17 10:42] LABS: ALB/GLOB Ratio 1.1 RATIO (0.9-2.4); AST(SGOT) 17 U/L (15-37); Alanine Aminotransfer ALT/SGPT 38 U/L (16-61); Albumin, Serum 3.8 g/dL (3.2-5.0); Alkaline Phosphatase 88 U/L (45-117); Anion Gap 8 (5-15); BUN 11 mg/dL (7-18); BUN/Creat Ratio 14.4 RATIO (10-20); Calcium,Total 9.5 mg/dL (8.5-10.1); Chloride 105 mmol/L (98-107); Creatinine, Serum 0.76 mg/dL (0.70-1.30); EST Glomerular Filtration Rate 116 mL/min (>60); Est Glom Filt Rate - Afr Amer 140 mL/min (>60); Estimated Creatinine Clearance 164.62 ml/min; Globulin 3.4 g/dL (2.2-4.2); Glucose 101 mg/dL (74-106); Potassium 4.1 mmol/L (3.5-5.1); Protein, Total 7.2 g/dL (6.4-8.2); Sodium Level 140 mmol/L (136-145)
[2023-07-17 10:51] LABS: Alcohol, Blood (Medical)-Serum < 3.0 mg/dL
[2023-07-17 10:58] LABS: Bacteria 0 SEEN /hpf (None Seen); Mucous, Urine 0 SEEN /hpf (<or=2+); Squamous Epithelial Cells - UA 0 SEEN /hpf (0-5)
[2023-07-17 11:01] LABS: Color, Urine Yellow (Yellow); Glucose, Dipstick Normal (Normal); Ketone-Dipstick Negative (Negative); Leukocyte Esterase-Dipstick 25 /ul (Negative); Nitrite-Dipstick Negative (Negative); Occult Blood-Urine 10 /ul (Negative); Protein-Dipstick 15 mg/dl (Negative); Urine Bilirubin Dipstick Negative (Negative); Urine Clarity Clear (Clear); Urine Urobilinogen Normal (Normal); Urine pH 6.5 (5.0 - 8.0)
[2023-07-17 11:13] LABS: Red Blood Cells-Urine 0-5 SEEN /hpf (0-5); White Blood Cells 0-5 SEEN /hpf (0-5)
[2023-07-17 11:20] LABS: Amphetamine Urine VISTA NEGATIVE (<1000 ng/mL); Barbiturate Urine VISTA NEGATIVE (< 200 ng/mL); Benzodiazepine Urine VISTA NEGATIVE (< 200 ng/mL); Cocaine Urine VISTA NEGATIVE (< 300 ng/mL); Ecstacy Urine VISTA NEGATIVE (< 500 ng/mL); Methadone Urine VISTA NEGATIVE (< 300 ng/mL); PCP Urine VISTA NEGATIVE (< 25 ng/mL); THC Urine VISTA NEGATIVE (< 50 ng/mL); Vista UDS pH Range 6
[2023-07-17] MEDS: 0.9% Normal Saline (1000mL) 1,000 ML 150 ML IV (11:40)
--- NOTE | 2023-07-17 12:22 | ED.RN ---
PT CONTINUES TO BE EASILY DISTRACTED. UNABLE AT TIMES TO FOLLOW COMMANDS.PT IS ABLE TO BE DIRECTED WITH SOME DIFFICULTY.
[2023-07-17] MEDS: Lorazepam 2 MG/ML WCH Syringe 1 MG IV ×2 (13:08→14:56)
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
[2023-07-17] MEDS: Ziprasidone IM 20 MG/ML VIAL IM (13:53)
--- NOTE | 2023-07-17 14:00 | ED.RN ---
CECI FROM CRISIS CALLS AND REPORTS THAT THE PATIENT DID PRESENT TO [facility] AND LEFT THE FACILITY. CECI REQUESTS THE PT CHART FAXED. NGOC PRINTED AND FAXED BY THIS RN.
[2023-07-17] MEDS: Haloperidol Lactate 5 MG/ML Vial IM ×2 (15:18→15:39)
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
[2023-07-17] MEDS: Haloperidol Lactate 5 MG/ML Vial IV (15:57)
[2023-07-17] MEDS: Midazolam 2 MG/2 ML Syringe IV (15:57)
--- NOTE | 2023-07-17 16:36 | ED.RN ---
THIS RN TALKED WITH STAFF FROM [place]. PT BEHAVIOR EXPLAINED. PT UNDER REVIEW
--- NOTE | 2023-07-17 17:29 | ED.RN ---
PT COOPERATIVE AT THIS TIME. ALL RESTRAINTS REMOVED. PT APOLOGETIC, DRINKING A GATORADE
--- NOTE | 2023-07-17 18:29 | ED.RN ---
PT REMAINS CALM AND COOPERATIVE. PT STOOD UP AND CLEANED HIMSELF UP. PT BED CLEANED AND SCRUBBED. PT GIVEN SCRUB PANTS AND PAPER SHIRT. SECOND MEAL PROVIDED. PT UNDERSTANDS THAT HE NEEDS TO REMAIN COOPERATIVE.PT CURRENTLY RESTING IN BED
--- NOTE | 2023-07-17 21:48 | ED.RN ---
Per [facility] counseling center, pt denied at [facility] for behavioral acuity being too high. Now referred to Miranda Corrigan and Fadi Chinchilla, also pending at [facility].
[2023-07-18] VITALS: BP 140/84; PULSE 89; RESP 18; O2SAT 97
[2023-07-18 01:00] VITALS: BP 155/100; PULSE 89; RESP 18; O2SAT 95
[2023-07-18 01:15] VITALS: BP 115/65; O2SAT 97
[2023-07-18 01:30] VITALS: BP 116/72; O2SAT 97
[2023-07-18 01:42] VITALS: BP 116/72; PULSE 89; RESP 16; O2SAT 96
--- NOTE | 2023-07-18 07:29 | NURSING ---
CALLED [facility], TALKED TO MARKELL. ETA IS ABOUT 15 MIN
[2023-07-18 08:07] VITALS: BP 116/70; PULSE 89; RESP 16; TEMP 36.6; O2SAT 96
== END 2023-07-18 08:15 ==
PROVIDERS: Emergency Provider Emergency Medicine; Visit Provider Emergency Medicine
DX: F20.9 Schizophrenia, unspecified (principal); Z86.59 Personal history of other mental and behavioral disorders; F17.210 Nicotine dependence, cigarettes, uncomplicated; F91.9 Conduct disorder, unspecified
CPT/HCPCS: 70450; 80053; 80307; 80320; 81001; 82962; 85025; 96361; 96372; 96374; 96375; 96376; 99285; J7030; A4216; G0480; J3486

== ENCOUNTER 2023-08-09 16:29 | Emergency (ER) | payer MEDICAID, SELFPAY ==
[2023-08-09 16:30] VITALS: BP 135/97; PULSE 98; RESP 16; TEMP 36.6; O2SAT 98; BMI 28.9
--- NOTE | 2023-08-09 17:00 | EX.ED.VIS.PS ---
HPI <Teagan Medina RN - Last Filed: 08/09/23 18:57> HPI - Psych History of Present Illness Chief Complaint: Mental Health Informant: patient Onset/Context/Timing Onset: Today Timing: Continuous Current Severity: Moderate Maximum Severity: Severe Associated Symptoms Associated Symptoms - Psych: Positive for Change in sleeping (Reports has not slept in several days), Decreased Concentration, Easily distracted and Paranoia; Negative for Suicidal Thoughts Specific plan (suicidal thought): Denies suicidal and homicidal ideation Narrative Narrative: Patient is a 48-year-old male with past medical history significant for schizophrenia, polysubstance abuse, and hepatitis B and C who presents for to the ED from the counseling center. Patient was pink slipped for joann. Per pink slip patient is unable to sit still has pacing has racing thoughts and NIVS with sleep. He was recently discharged from a psychiatric unit at [facility] yesterday. They report he has had a 50 pound weight loss since April of this year. He has no appetite. He does have a prior history of depression, anxiety, hallucinations, spiritual preoccupations, and unspecified schizophrenia. He was hospitalized 2 weeks ago for catatonia. He also has a history of wandering. Per patient, he was discharged from [facility] yesterday without his medication. He reports he is taking Ativan and Seroquel. Reports he did miss his doses of Ativan last p.m. and this morning. He is also not had Seroquel. He does report over the past month he has had multiple psychiatric admissions. He has been at [facility], [facility], and [facility]. He denies suicidal or homicidal ideation. He denies any visual or auditory hallucinations. He denies alcohol use. He denies illicit drug use reporting that he has been sober for a couple months. He is a 1 pack/day smoker for 35 years. He does report he has not slept in several days. He reports today he went to the counseling center because he did not have his medications. He reports he could not keep it together. He said they did give him his medications. However they were all vitamins and not Ativan or Seroquel. He does admit to having paranoid schizophrenia. He denies paranoia at this time. He also reports he was evicted from his residence approximately 1 month ago and is currently homeless. He complains of toe and bilateral knee pain. Reports he walked a lot today because he was anxious. Prior similar symptoms: Yes Recent Illness/Hospitalization: Yes PFSH <Teagan Medina RN - Last Filed: 08/09/23 18:57> [facility] Medical History Amphetamine use disorder, moderate, dependence Benzodiazepine use and dependence Drug abuse Hepatitis B Hepatitis C Opiate abuse, continuous Opiate abuse, continuous Polysubstance dependence including opioid type drug, continuous use Home Medications buprenorphine 8 mg-naloxone 2 mg sublingual film 2 film sublingual DAILY opiod dependence 05/27/23 [History Last Taken Unknown] Allergy/AdvReac Type Severity Reaction Status Date / Time No Known Allergies Allergy Verified 08/09/23 16:33 Surgical History Hx of total knee replacement S/P left knee surgery Social History Smoking Status: Current every day smoker tobacco type: cigarettes ROS <Teagan Medina RN - Last Filed: 08/09/23 18:57> ROS ED Constitutional Constitutional ED: Denies chills, fever(s) or sweats Eyes Eyes: Denies blurry vision or change in vision ENT ENT ED: Denies ear pain, rhinorrhea or sore throat Cardiovascular Cardiovascular: Denies chest pain, palpitations or racing heartbeat Respiratory/Chest Respiratory/Chest: Denies cough or dyspnea Gastrointestinal Gastrointestinal: Denies abdominal pain, diarrhea, melena, nausea or vomiting Genitourinary Genitourinary ED: Denies dysuria, hematuria or urinary frequency Musculoskeletal Musculoskeletal: Denies arthralgias, back pain or myalgias Integumentary Denies rash Neurologic Neurologic: Denies headache(s), paresthesias or weakness Psychiatric Psychiatric: Reports anxiety; Denies depression, suicidal ideation or suicidal thoughts Endocrine Endocrinology: Denies polydipsia, polyphagia or polyuria EXAM <Teagan Medina RN - Last Filed: 08/09/23 18:57> Physical Exam Narrative Exam Narrative: Patient awake, alert, anxious, cooperative Const Vital Signs: 08/09/23 16:30 08/09/23 17:30 Temperature 97.9 F Temperature Source Temporal Pulse Rate 98 87 Respiratory Rate 16 18 Blood Pressure 135/97 H 138/97 H Blood Pressure Mean 109 110 Pulse Ox 98 100 Oxygen Delivery Method Room Air Room Air Positive well nourished and well developed General Appearance ED: well developed and NAD HEENT Reports moist mucous membranes normocephalic Eyes PERRL and EOMs intact bilaterally Neck no JVD Resp normal respiratory effort and clear to auscultation bilaterally Auscultation: Negative for rales, rhonchi or wheezes Cardio S1 normal heart sound, S2 normal heart sound and no murmurs Rate: regular rate Rhythm: regular rhythm GI non-tender, non-distended and no masses Auscultation: normoactive bowel sounds Palpation: soft Extremity normal to inspection General Extremety ED: Negative for edema or tenderness General Extremity: Negative for edema Neuro Neuro Narrative: Patient able to state name, date of , and location. When asked the date, he was able to visualize a calendar by the nurses station and correctly state the date. Sensorium / Orientation: alert, oriented to person and oriented to place Motor Exam: strength 5/5 throughout and muscle tone normal throughout Psych cooperative, denies hallucinations, denies homicidal ideation and denies suicidal ideation Psych Narrative: Patient slightly paranoid and anxious. Attitude: paranoid Activity / Motor Behavior: appropriate eye contact Speech: normal speech Mood & Affect: anxious Thought Process: racing thoughts Thought Content: normal thought content Attention / Concentration: attention grossly intact and concentration grossly intact Memory / Cognition: memory grossly intact Insight: limited Judgement: limited Skin Lesions: no lesions Rashes: no rashes <Dr. Meeta Roberts MD - Last Filed: 08/09/23 19:00> Physical Exam Const Vital Signs: 08/09/23 16:30 08/09/23 17:30 Temperature 97.9 F Temperature Source Temporal Pulse Rate 98 87 Respiratory Rate 16 18 Blood Pressure 135/97 H 138/97 H Blood Pressure Mean 109 110 Pulse Ox 98 100 Oxygen Delivery Method Room Air Room Air MDM <Teagan Medina RN - Last Filed: 08/09/23 18:57> MDM MDM Narrative Medical decision making narrative: Labwork obtained to evaluate for leukocytosis, anemia, and electrolyte derangement. Urinalysis obtained to evaluate for infection/hematuria and drugs of abuse. History & Record Review Discussion w/independent historian: Patient Lab Data Labs: Laboratory Results - last 24 hr 08/09/23 17:04 WBC 7.8 RBC 4.90 Hgb 14.3 Hct 42.6 MCV 86.9 MCH 29.2 MCHC 33.6 RDW Std Deviation 38.7 RDW Coeff of Car 12.1 Plt Count 226 MPV 9.9 Immature Gran % (Auto) 0.300 Neut % (Auto) 49.8 Lymph % (Auto) 40.5 [place] % (Auto) 9.2 Eos % (Auto) 0.1 Baso % (Auto) 0.1 Absolute Neuts (auto) 3.9 Absolute Lymphs (auto) 3.14 Nucleated RBC % 0 Sodium 139 Potassium 3.8 Chloride 106 Carbon Dioxide 28.0 Anion Gap 5 BUN 11 Creatinine 0.76 Estim Creat Clear Calc 166.14 Est GFR (MDRD) Af Amer 141 Est GFR (MDRD) Non-Af 117 BUN/Creatinine Ratio 14.5 Glucose 93 Calcium 9.1 Urine Opiates Screen NEGATIVE Urine Methadone Screen NEGATIVE Ur Barbiturates Screen NEGATIVE Ur Phencyclidine Scrn NEGATIVE Ur Amphetamines Screen NEGATIVE MDMA (Ecstasy) Screen NEGATIVE U Benzodiazepines Scrn NEGATIVE Urine Cocaine Screen NEGATIVE U Cannabinoids Screen NEGATIVE Ur Drug Screen Comment Ethyl Alcohol < 3.0 Differential Diagnosis Differential Diagnosis: Paranoid schizophrenia Management Discussion w/another healthcare provider: Other (Dr. Roberts, ED provider) Treatment and Re-Evaluation Narrative: Lab work reviewed. CBC is unremarkable with a normal white blood cell count 7.8, hemoglobin 14.3, and platelets 226. Chemistry is also unremarkable with sodium 139, potassium 3.8, BUN 11, creatinine 0.76, glucose 93. Urine drug screen is negative. Blood alcohol level is less than 3.0. Patient was given 1 mg Ativan and Seroquel 50 mg. Upon reevaluation, patient awake and laying in bed. He reports feeling only slightly more relaxed, stating I wish I felt more relaxed and could sleep. Patient is excepted at [facility] and will be transported via local squad. <Dr. Meeta Roberts MD - Last Filed: 08/09/23 19:00> [facility] Lab Data Labs: Laboratory Results - last 24 hr 08/09/23 17:04 WBC 7.8 RBC 4.90 Hgb 14.3 Hct 42.6 MCV 86.9 MCH 29.2 MCHC 33.6 RDW Std Deviation 38.7 RDW Coeff of Car 12.1 Plt Count 226 MPV 9.9 Immature Gran % (Auto) 0.300 Neut % (Auto) 49.8 Lymph % (Auto) 40.5 [place] % (Auto) 9.2 Eos % (Auto) 0.1 Baso % (Auto) 0.1 Absolute Neuts (auto) 3.9 Absolute Lymphs (auto) 3.14 Nucleated RBC % 0 Sodium 139 Potassium 3.8 Chloride 106 Carbon Dioxide 28.0 Anion Gap 5 BUN 11 Creatinine 0.76 Estim Creat Clear Calc 166.14 Est GFR (MDRD) Af Amer 141 Est GFR (MDRD) Non-Af 117 BUN/Creatinine Ratio 14.5 Glucose 93 Calcium 9.1 Urine Opiates Screen NEGATIVE Urine Methadone Screen NEGATIVE Ur Barbiturates Screen NEGATIVE Ur Phencyclidine Scrn NEGATIVE Ur Amphetamines Screen NEGATIVE MDMA (Ecstasy) Screen NEGATIVE U Benzodiazepines Scrn NEGATIVE Urine Cocaine Screen NEGATIVE U Cannabinoids Screen NEGATIVE Ur Drug Screen Comment Ethyl Alcohol < 3.0 Treatment and Re-Evaluation Narrative: Lab work reviewed. CBC is unremarkable with a normal white blood cell count 7.8, hemoglobin 14.3, and platelets 226. Chemistry is also unremarkable with sodium 139, potassium 3.8, BUN 11, creatinine 0.76, glucose 93. Urine drug screen is negative. Blood alcohol level is less than 3.0. Patient was given 1 mg Ativan and Seroquel 50 mg. Upon reevaluation, patient awake and laying in bed. He reports feeling only slightly more relaxed, stating I wish I felt more relaxed and could sleep. Patient is excepted at [facility] and will be transported via local squad. Patient seen and evaluated with SALLY student. I personally interviewed and examined the patient. I was involved in all aspects of patient's orders, interpretation of results, and treatment. Patient presents secondary to psychiatric issues. Patient was just discharged from [facility] in [place]. He reportedly did not get sent home with any medications and was actually given the wrong patient's discharge instructions. He was seen by counseling center they sent him in for medical clearance and placement. They report that he has been wandering. Patient is given a dose of his Ativan and Seroquel that he is supposed to be on. Patient sitting upright in bed. Cooperative at this time. Head and neck examination unremarkable. Heart is regular rate and rhythm. Lung sounds are clear. Abdomen soft and nontender. Labwork for psychiatric clearance obtained. CBC and chemistry studies are unremarkable. Tox screen is negative and EtOH is less than 3. Paperwork was sent to the counseling center. I advised that he has been accepted at [facility]. Discharge Plan Triage Chief Complaint: Mental Health ED Provider: Meeta Roberts Dx/Rx/DC Orders Clinical Impression: History of hepatitis B, History of hepatitis C, Schizophrenia, History of drug abuse Prescriptions: No Action buprenorphine-naloxone 8-2 mg film 2 film sublingual DAILY Patient Comments: DISSOLVE 2 films UNDER THE TONGUE EVERY DAY DIRECTED Primary [facility]: [facility] - Disposition Disposition: Psychiatric Hospital or Unit Discharge Location: [facility]
[2023-08-09 17:12] LABS: Absolute Lymphocyte Count 3.14 X10^3/uL (0.83-4.51); Absolute Neutrophil Count 3.9 X10^3/uL (2.0-7.7); Basophil# 0.01 X10^3/uL; Basophil% 0.1 % (0-1); Eosinophil# 0.01 X10^3/uL; Eosinophils% 0.1 % (0-5); Hematocrit 42.6 % (40-54); Hemoglobin 14.3 g/dL (13.0-16.5); Lymphocyte # 3.14 X10^3/ul (0.83-4.51); Lymphocyte % 40.5 % (19-41); Mean Corp Hgb Conc 33.6 g/dL (32-36); Mean Corpuscular Hgb 29.2 pg (27.0-32.0); Mean Corpuscular Volume 86.9 fL (80-94); Mean Platelet Vol. 9.9 fl (6.2-12.0); Monocyte# 0.71 X10^3/uL; Monocyte% 9.2 % (0-10); NRBC Flagged by Analyzer 0 % (0-5); Neutrophil # 3.86 X10^3/uL (2.7-7.7); Neutrophil % 49.8 % (47-70); Platelet Count 226 K/mm3 (150-450); RBC Distribution Width CV 12.1 % (11.6-14.6); RBC Distribution Width SD 38.7 fl (35.1-43.9); White Blood Count 7.8 K/mm3 (4.4-11.0)
[2023-08-09 17:22] LABS: Amphetamine Urine VISTA NEGATIVE (<1000 ng/mL); Barbiturate Urine VISTA NEGATIVE (< 200 ng/mL); Benzodiazepine Urine VISTA NEGATIVE (< 200 ng/mL); Cocaine Urine VISTA NEGATIVE (< 300 ng/mL); Ecstacy Urine VISTA NEGATIVE (< 500 ng/mL); Methadone Urine VISTA NEGATIVE (< 300 ng/mL); PCP Urine VISTA NEGATIVE (< 25 ng/mL); THC Urine VISTA NEGATIVE (< 50 ng/mL); Vista UDS pH Range 6
[2023-08-09 17:24] LABS: Alcohol, Blood (Medical)-Serum < 3.0 mg/dL; Anion Gap 5 (5-15); BUN 11 mg/dL (7-18); BUN/Creat Ratio 14.5 RATIO (10-20); Calcium,Total 9.1 mg/dL (8.5-10.1); Chloride 106 mmol/L (98-107); Creatinine, Serum 0.76 mg/dL (0.70-1.30); EST Glomerular Filtration Rate 117 mL/min (>60); Est Glom Filt Rate - Afr Amer 141 mL/min (>60); Estimated Creatinine Clearance 166.14 ml/min; Glucose 93 mg/dL (74-106); Potassium 3.8 mmol/L (3.5-5.1); Sodium Level 139 mmol/L (136-145)
[2023-08-09 17:30] VITALS: BP 138/97; PULSE 87; RESP 18; O2SAT 100
[2023-08-09] MEDS: LORazepam 1 MG Tablet PO (17:42)
[2023-08-09] MEDS: QUEtiapine 25 MG Tablet 50 MG PO (17:42)
[2023-08-09 19:11] VITALS: BP 149/104; PULSE 70; RESP 16; TEMP 37; O2SAT 100
[2023-08-09 19:14] VITALS: BP 149/104; PULSE 70; RESP 17; TEMP 37; O2SAT 100
--- NOTE | 2023-08-09 19:16 | ED.RN ---
Attempted report x2. Was told to call back in 20 minutes.
--- NOTE | 2023-08-09 19:51 | ED.RN ---
Report given to Jaz GONZALEZ
== END 2023-08-09 19:51 ==
PROVIDERS: Emergency Provider Emergency Medicine; Visit Provider Emergency Medicine
DX: F20.0 Paranoid schizophrenia (principal); F11.10 Opioid abuse, uncomplicated; Z86.19 Personal history of other infectious and parasitic diseases; Z59.00 Homelessness unspecified; Z79.899 Other long term (current) drug therapy; Z96.659 Presence of unspecified artificial knee joint; F17.210 Nicotine dependence, cigarettes, uncomplicated
CPT/HCPCS: 36415; 80048; 80307; 80320; 85025; 99284; G0480

== ENCOUNTER 2025-03-17 20:47 | Emergency (ER) | payer MEDICAID, SELFPAY ==
[2025-03-17 20:48] VITALS: BP 132/106; PULSE 91; RESP 26; TEMP 36.6; O2SAT 96; BMI 39.8
--- NOTE | 2025-03-17 20:52 | EKG12_ITS ---
Test Reason : SOB Blood Pressure : */* mmHG Vent. Rate : 93 BPM Atrial Rate : 93 BPM P-R Int : 150 ms QRS Dur : 92 ms QT Int : 376 ms P-R-T Axes : 9 52 48 degrees QTcB Int : 467 ms Normal sinus rhythm Normal ECG Confirmed by BEENA DACOSTA, JOSEPH ([id number]), department editor JOHNSON CONNOR ([id number]) on 03/18/2025 9:24:31 AM Referred By: JAYSON Confirmed By: JOSEPH HARGROVE MD
[2025-03-17 21:19] VITALS: O2SAT 95
--- OUTSIDE RECORDS SUMMARY | 2025-03-17 21:28 | XMS RPT_ITS | CCD ---
Author Organization [facility] Care Team Providers Care Waste Disposal Leakage Tester Name Role Phone Adele Kelly Unavailable Brennon Keegan Bandar Unavailable Nate Adames Unavailable Unavailable Adele Kelly Unavailable Adele Kelly Unavailable Nate Adames Unavailable Unavailable Adele Kelly Unavailable RASHEL TRAVIS Unavailable Unavailable PHYSICIAN, NONE Unavailable Unavailable SHALINI GARCIA (PA) Attending UnavailSHALINI Zamora (PA) Referring UnavailADAM Cerrato Attending Unavailable SHALINI GARCIA (PA) Attending UnavailSHALINI Zamora (PA) Referring UnavailNiya Field Primary Care Provider Nate Adames Unavailable Unavailable Niya Camara MD Primary Care Provider Dr. Grady Glez Emergency Provider Dr. Racheal Fabian Primary Care Provider Dr. Grady Meng Attending Provider Dr. Grady Meng Admit Provider Dr. Grady Meng Other Provider Dr. Steve Hebert Emergency Provider Wilbert, Dr. Su Admit Provider Wilbert, Dr. Su Attending Provider Dr. Georges Atkins Other Provider Jax DACOSTA, Niya E Primary Care Provider Jax DACOSTA, Niya E Primary Care Provider Jax DACOSTA, Niya E Primary Care Provider Jax DACOSTA, Niya E Primary Care Provider NIYA CAMARA Primary Care Unavailable COOPER, LENKA Referring Unavailable COOPER, LENKA Referring Unavailable JAX, NIYA E Primary Care Unavailable JAX, NIYA E Primary Care Unavailable COOPER, LENKA Referring Unavailable JAX, NIYA E Primary Care Unavailable COOPER, LENKA Referring Unavailable JAX, NIYA E Primary Care Unavailable JAX, NIYA Primary Care Unavailable PADMINI MOYA Admitting Unavailable BRENNON BRAMBILA Attending Unavailable Unavailable Primary Care Provider Unavailabl e NO, PHYSICIAN Primary Care Unavailable SYSTEM, PROVIDER NOT IN Referring UnavailKIMO Dowell Attending Unavailabl e Steve Hebert Attending Unavailable [facility] Primary Care Unavailable [facility] Primary Care Unavailable Grady Glez Attending Unavailable [place] DRY MOLDER, Adele Attending Unavailable [facility] Primary Care Unavailable Steve Hebert Attending Unavailable [facility] Primary Care Unavailable Meeta Roberts Attending [facility], [facility] Primary Care Unavailable DANNA OWENS Attending Unavailable OHRIDALY Attending Unavailable CONSULT, PSYCHIATRY Consulting Unavailable MARGARETH HARRELL Admitting Unavailable Allergies Allergy Classification Reported Allergen(s) Allergy Type Date of Onset Reaction(s) Facility (3 sources) traZODone; Translations: [TRAZODONE] Drug Allergy 07-21-2023 Anxiety [facility] Medications Current Medications Medication Drug Class(es) Dates Sig (Normalized) Sig (Original) Alum & Mag Hydroxide-Simeth (MAALOX PLUS PO) (1 source) take 30 mL by mouth every four hours as needed Alum & Mag Hydroxide-Simeth (MAALOX PLUS PO) Take 30 mL by mouth every 4 hours as needed (indigestion). Active amoxicillin 875 mg / clavulanate 125 mg oral tablet (1 source) Penicillin-class Antibacterial Start: 04-23-2019 End: 05-03-2019 take 1 tablet by mouth twice daily at mealtime amoxicillin-clav ulanate (AUGMENTIN) 875-125 MG per tablet Take 1 tablet by mouth 2 times daily (with meals) for 10 days 20 tablet 0 04/23/2019 05/03/2019 Active B Complex capsule (1 source) take 1 capsule by mouth once daily B Complex capsule Take 1 capsule by mouth daily. Active baclofen 10 mg oral tablet (1 source) gamma-Aminobutyric Acid-ergic Agonist take 1 tablet by mouth three times daily as needed for pain baclofen 10 MG tablet Take 1 tablet by mouth 3 times daily as needed (pain). Active buprenorphine 8 mg / naloxone 2 mg sublingual film (20 sources) Partial Opioid Agonist, Opioid Antagonist Start: 05-27-2023 Buprenorphine-Na loxone Active 2 FILM SL DAILY May 27, 2023 1:00am Start: 03-31-2019 End: 05-27-2023 Buprenorphine-Naloxone Disco ntinued 1 TABLET SL DAILY March 31, 2019 1:00am May 27, 2023 9:49am Start: 09-21-2016 SUBOXONE 2-0.5 MG FILM BUPRENORPHINE HCL-NALOXONE HCL [id number] Nate Adames Start: 09-21-2016 SUBOXONE 2-0.5 MG FILM BUPRENORPHINE HCL-NALOXONE HCL [id number] Nate Adames buprenorphine-na loxone (SUBOXONE) 4-[address] film [address] 1 Film under the tongue daily. 0 Active cephalexin 500 mg oral capsule (1 [...] extended release oral tablet (1 source) Uncompetitive G-ejityg-C-aspartat e Receptor Antagonist, Sigma-1 Agonist Start: 02-21-2022 End: 03-07-2022 take 30-600 mg by mouth twice daily Dextromethorphan- guaiFENesin (MUCINEX DM) 30-600 MG TB12 Indications: URI with cough and congestion Take 1 tablet by mouth 2 times daily for 14 days 28 tablet 0 02/21/2022 03/07/2022 Active diclofenac sodium 0.01 mg/mg topical gel (2 sources) Nonsteroidal Anti-inflammatory Drug Start: 07-29-2023 End: 08-01-2023 Diclofenac sodium 1 % Gel gel Apply 2 g topically 4 times daily. 08/01/2023 Active gabapentin 300 mg oral capsule (7 sources) Anti-epileptic Agent gabapentin (NEURONTIN) 300 MG capsule Take 300 mg by mouth 2 times daily.. 0 Active LORazepam 2 mg oral tablet (4 sources) Benzodiazepine Start: 08-01-2023 End: 08-08-2023 take 1 tablet by mouth every eight hours LORazepam 2 MG tablet Indications: Catatonia Take 1 tablet by mouth every 8 hours for 7 days. 08/01/2023 08/08/2023 Active Start: 07-31-2023 End: 08-01-2023 take 2 mg by mouth every eight hours 2 mg, Oral, EVERY 8 HOURS, First dose (after last modification) on Sun07/31/23 at 1400, Until Discontinued Start: 07-30-2023 End: 07-31-2023 take 1 mg by mouth every eight hours 1 mg, Oral, EVERY 8 HOURS, First dose on Sun07/30/23 at 1400, Until Discontinued Start: 07-29-2023 End: 07-29-2023 1 mg, Intravenous, ONCE, 1 d ose, On Sun07/29/23 at 1700, Extravasation Risk melatonin 3 mg oral tablet (3 sources) Start: 08-01-2023 take 2 tablets by mouth at bedtime Melatonin 3 MG tablet Take 2 tablets by mouth at bedtime. 08/01/2023 Active Start: 07-29-2023 End: 08-01-2023 take 6 mg by mouth once daily at bedtime 6 mg, Oral, DAILY AT BEDTIME, First dose (after last modification) on Sun07/30/23 at 2100, Until Discontinued 24 hr nicotine 0.875 mg/hr transdermal system (16 sources) Cholinergic Nicotinic Agonist Start: 08-01-2023 apply 1 dose transdermal route every twenty-four hours Nicotine 21 MG/24HR Patch [address] 1 patch on skin every 24 hours. 08/01/2023 Active Start: 07-30-2023 End: 08-01-2023 take 4 mg by mouth (buccal) every two hours as needed nicotine 4 MG Lozenge 1 lozenge by Buccal route every 2 hours as needed for Smoking cessation. 08/01/2023 Active Start: 07-29-2023 End: 08-01-2023 Nicotine (NICODERM CQ) 21 MG /24HR patch 1 patch Start: 07-29-2023 End: 08-01-2023 take 4 mg by mouth every two hours as needed Nicotine 4 MG Gum gum Take 1 Each by mouth every 2 hours as needed for Smoking cessation. 08/01/2023 Active Start: 07-21-2023 End: 07-21-2023 4 mg, Oral, ADMINISTER DI RECTED, Starting on 07/21/23 at 1705, Until 07/21/23 at 2227, Smoking cessation, May have 1 piece of gum every 1-2 hours with maximum of 24 pieces in 24 hours. Patient may self-administer. Start: 04-04-2018 End: 04-12-2018 Nicotine Discontinued 21 MG TRANSDERM. DAILY April 04, 2018 1:00am April 12, 2018 1:25pm ondansetron 4 mg disintegrating oral tablet (1 source) Serotonin-3 Receptor Antagonist take 1 tablet by mouth every four hours as needed Ondansetron 4 MG Tab Dispersible tablet Take 1 tablet by mouth every 4 hours as needed for Nausea / Vomiting. Active QUEtiapine 50 mg oral tablet (9 sources) Atypical Antipsychotic Start: 07-31-19 End: 08-01-19 24 take 1 tablet by mouth at bedtime QUEtiapine 50 MG tablet Take 1 tablet by mouth at bedtime. 08/01/2023 Active take 1 tablet by mouth once cody y QUEtiapine (SEROQUEL) 100 MG tablet Take 100 mg by mouth nightly 0 Active sulfamethoxazole 800 mg / trimethoprim 160 mg oral tablet (1 source) Dihydrofolate Reductase Inhibitor Antibacterial, Sulfonamide Antimicrobial Start: 02-21-2022 End: 02-28-2022 take 1 tablet by mouth twice daily sulfamethoxazole-trimethoprim (BACTRIM DS;SEPTRA DS) 800-160 MG per tablet Indications: Cellulitis of left upper extremity Take 1 tablet by mouth 2 times daily for 7 days 14 tablet 0 02/21/2022 02/28/2022 Active 24 hr venlafaxine 75 mg extended release oral capsule (4 sources) Serotonin and Norepinephrine Reuptake Inhibitor Start: 07-30-2023 End: 08-01-2023 take 1 capsule by mouth once daily Venlafaxine 75 MG Cap SR 24HR capsule XR Take 1 capsule by mouth daily. 08/01/2023 Active End: 08-01-2023 take 2 capsules by mouth once daily Venlafaxine 75 MG Cap SR 24HR capsule XR Take 2 capsules by mouth daily. 08/01/2023 Discontinued End: 07-30-2023 take 1 tablet by mouth three times daily Venlafaxine 75 MG tablet Take 1 tablet by mouth 3 times daily. 07/30/2023 Discontinued (Medication Reconciliation (suppress cancel msg)) vitamin b12 1 mg oral tablet (1 source) Vitamin B12 take 1 tablet by mouth once daily cyanocobalamin 1000 MCG tablet Take 1 tablet by mouth daily. Active Completed/Discontinued Medications Medication Drug Class(es) Dates Sig (Normalized) Sig (Original) acetaminophen 325 mg oral tablet (3 sources) Start: 07-29-2023 End: 08-01-2023 take 1 tablet by mouth every six hours as needed 650 mg, Oral, EVERY 6 HOURS NEEDED, Starting on 07/29/23 at 1718, Until 08/01/23 at 1529, Mild Pain, Oral temp > 100.4 F, Maximum dose of acetaminophen is 4000 mg from all sources in 24 hours. Start: 07-21-2023 End: 07-21-2023 take 1 tablet by mouth every six hours as needed 650 mg, Oral, EVERY 6 HOURS NEEDED, Starting on 07/21/23 at 1705, Until 07/21/23 at 2227, Mild Pain, Maximum dose of acetaminophen is 4000 mg from all sources in 24 hours. take 2 tablets by mo uth every six hours as needed Acetaminophen 325 MG tablet Take 2 tablets by mouth every 6 hours as needed for Mild Pain. Active acetaminophen 325 mg / HYDROcodone bitartrate 5 mg oral tablet (1 source) Opioid Agonist Start: 07-29-2023 End: 07-29-2023 take 1 tablet by mouth every twenty-four hours 1 tablet, Oral, ONCE, 1 dose, On 07/29/23 at 1900, Maximum dose of acetaminophen is 4000 mg from all sources in 24 hours. aluminum hydroxide 40 mg/ml / magnesium hydroxide 40 mg/ml / simethicone 4 mg/ml oral suspension (1 source) Start: 07-29-2023 End: 08-01-2023 take 30 mL by mouth every six hours as needed 30 mL, Oral, EVERY 6 HOURS NEEDED, Starting on Sun07/29/23 at 1718, Until Sun08/01/23 at 1529, Indigestion, Per 5 mL is equivalent to: (Alum-Mag Hydroxide 200-225 mg and Simethicone 20 mg) and (Alum-Mag Hydroxide 200-200 mg and Simethicone 20 mg) amLODIPine 5 mg oral tablet (2 sources) Dihydropyridine Calcium Channel [place] Start: 07-30-2023 End: 08-01-2023 take 5 mg by mouth once daily 5 mg, Oral, DAILY, First dose (after last modification) on Sun07/30/23 at 1045, Until Discontinued amoxicillin 500 mg oral tablet (9 sources) Penicillin-class Antibacterial Start: 06-24-2017 End: 07-04-2017 take 500 mg by mouth three times daily Amoxicillin Discontinued 500 MG PO THREE TIMES A DAY June 24, 2017 1:00am July 04, 2017 9:40am benztropine mesylate 1 mg oral tablet (1 source) Anticholinergic, Antihistamine Start: 07-31-2023 End: 08-01-2023 take 1 tablet by mouth every twelve hours as needed 1 mg, Oral, EVERY 12 HOURS NEEDED, Starting on Sun07/31/23 at 1036, Until Sun08/01/23 at 1529, Extra-pyramidal Symptoms calcium chloride 0.0014 meq/ml / potassium chloride 0.004 meq/ml / sodium chloride 0.103 meq/ml / sodium lactate 0.028 meq/ml injectable solution (1 source) Start: 07-29-2023 End: 07-30-2023 Intravenous, at 100 mL/hr, CONTINUOUS, Starting on Sun07/29/23 at 1930, Until Sun07/30/23 at 0729 celecoxib 200 mg oral capsule (20 sources) Nonsteroidal Anti-inflammatory Drug Start: 06-24-2017 End: 04-12-2018 take 100 mg by mouth twice daily Celecoxib Discontinued 100 MG PO TWICE A DAY June 24, 2017 1:00am April 12, 2018 1:26pm Start: 09-21-2016 CELEBREX 100 M G CAPS CELECOXIB [id number] Nate Adames cloNIDine hydrochloride 0.1 mg oral tablet (1 source) Central alpha-2 Adrenergic Agonist End: 08-01-2023 take 1 tablet by mouth every six hours as needed cloNIDine 0.1 MG tablet Take 1 tablet by mouth every 6 hours as needed for Blood Pressure (High). 08/01/2023 Discontinued (Stop Taking at Discharge) cyclobenzaprine hydrochloride 10 mg oral tablet (1 source) Muscle Relaxant Start: 07-30-2023 End: 08-01-2023 take 5 mg by mouth three times daily as needed for pain 5 mg, Oral, 3 TIMES DAILY NEEDED, Starting on Sun07/30/23 at 1031, Until Sun08/01/23 at 1529, Moderate Pain, Severe Pain, Mild Pain, Muscle spasms diphenhydrAMINE hydrochloride 25 mg oral tablet (2 sources) Histamine-1 Receptor Antagonist Start: 07-30-2023 End: 07-30-2023 take 1 dose by mouth once 50 mg, Oral, ONCE, 1 dose, On Sun07/30/23 at 0215 Start: 07-29-2023 End: 07-29-2023 50 mg, Intravenous, ONCE, 1 dose, On Sun07/29/23 at 1930 donepezil hydrochloride 10 mg oral tablet (2 sources) Start: 07-30-2023 End: 07-30-2023 take 5 mg by mouth once daily 5 mg, Oral, DAILY, First dose on Sun07/30/23 at 0900, Until Discontinued End: 08-01-2023 take 1 tablet by mouth at bedtime donepezil 5 MG tablet Take 1 tablet by mouth At bedtime. 08/01/2023 Discontinued (Stop Taking at Discharge) Enoxaparin Sodium (LOVENOX) injection 40 mg (1 source) Start: 07-30-2023 End: 08-01-2023 Enoxaparin Sodium (LOVENOX) injection 40 mg 72 hr fentaNYL 0.025 mg/hr transdermal system (18 sources) Opioid Agonist Start: 04-04-2018 End: 04-18-2018 Fentanyl Discontinued 25 MCG TRANSDERM. Q72H 2 April 12, 2018 1:25pm April 18, 2018 1:08am guaiFENesin 20 mg/ml oral solution (1 source) Start: 07-29-2023 End: 08-01-2023 take 400 mg by mouth every six hours as needed 400 mg, Oral, EVERY 6 HOURS NEEDED, Starting on Sun07/29/23 at 1718, Until Sun08/01/23 at 1529, Cough, Congestion hydrOXYzine hydrochloride 25 mg oral tablet (19 sources) Antihistamine Start: 07-30-2023 End: 08-01-2023 take 1 tablet by mouth every six hours as needed 50 mg, Oral, EVERY 6 HOURS NEEDED, Starting on Sun07/30/23 at 0742, Until Sun08/01/23 at 1529, Anxiety, Insomnia Start: 07-30-2023 End: 07-30-2023 take 1 dose by mouth once 25 mg, Oral, ONCE, 1 dose, O n 07/30/23 at 0430 Start: 04-04-2018 End: 04-12-2018 take 25 mg by mouth at bedtime Hydroxyzine Pamoate Dis continued 25 MG PO AT BEDTIME April 04, 2018 1:00am April 12, 2018 1:25pm take 1 tablet by erika th every six hours as needed hydrOXYzine hcl 50 MG tablet Take 1 tablet by mouth every 6 hours as needed for Anxiety. Active ibuprofen 600 mg oral tablet (2 sources) Nonsteroidal Anti-inflammatory Drug Start: 07-30-2023 End: 08-01-2023 take 1 tablet by mouth every six hours as needed 600 mg, Oral, EVERY 6 HOURS NEEDED, Starting on Sun07/30/23 at 1031, Until Sun08/01/23 at 1529, Mild Pain, Moderate Pain, Severe Pain, Give with food Start: 07-21-2023 End: 07-21-2023 take 1 tablet by mouth every six hours as needed 600 mg, Oral, EVERY 6 HOURS NEEDED, Starting on 07/21/23 at 1705, Until 07/21/23 at 2227, Moderate Pain, Give with food 1 ml ketorolac tromethamine 15 mg/ml cartridge (2 sources) Nonsteroidal Anti-inflammatory Drug, Cyclooxygenase Inhibitor Start: 07-29-2023 End: 07-30-2023 15 mg, Intravenous, ONCE, 1 dose, On Mon /8/24 at 0500 10 ml lidocaine hydrochloride 10 mg/ml injection (1 source) Antiarrhythmic, Amide Local Anesthetic Start: 02-24-2022 End: 02-24-2022 lidocaine 1 % injection 5 mL Start: 02-24-2022 End: 02-24-2022 lidocaine 1 % injection 5 mL lisinopril 20 mg oral tablet (2 sources) Angiotensin Converting Enzyme Inhibitor Start: 07-30-2023 End: 08-01-2023 loperamide hydrochloride 2 mg oral capsule (1 source) Opioid Agonist End: 07-30-2023 take 1 capsule by mouth every two hours as needed Loperamide 2 MG capsule Take 1 capsule by mouth every 2 hours as needed for Diarrhea. 2 stat then 1 cap after each loose stool 07/30/2023 Discontinued (Medication Reconciliation (suppress cancel msg)) METHYLPREDNISOLONE (3 sources) Corticosteroid Start: 01-17-2017 METHYLPREDNISOLONE 4 MG TBPK take as directed METHYLPREDNISOLONE [id number] Keegan Brown Start: 01-17-2017 METHYLPREDNISO LONE 4 MG TBPK take as directed METHYLPREDNISOLONE [id number] Keegan Brown Multivitamin w/ minerals (THERAPEUTIC-M) tablet 1 tablet (1 source) Start: 07-30-2023 End: 08-01-2023 take 1 tablet by mouth once daily 1 tablet, Oral, DAILY, First dose on Sun07/30/23 at 0900, Until Discontinued Multivitamin w/ minerals tablet (1 source) End: 07-30-2023 take 1 tablet by mouth once daily Multivitamin w/ minerals tablet Take 1 tablet by mouth daily. 07/30/2023 Discontinued (Medication Reconciliation (suppress cancel msg)) OLANZapine 10 mg oral tablet (1 source) Atypical Antipsychotic End: 07-30-2023 take 1 tablet by mouth at bedtime OLANZapine 10 MG tablet Take 1 tablet by mouth at bedtime. 07/30/2023 Discontinued (Medication Reconciliation (suppress cancel msg)) Ondansetron 4mg/2ml (ZOFRAN) injection 4 mg (1 source) Start: 07-29-2023 End: 08-01-2023 take 4 mg intravenously every six hours as needed Ondansetron 4mg/2ml (ZOFRAN) injection 4 mg oxyCODONE hydrochloride 5 mg oral tablet (18 sources) Opioid Agonist Start: 04-12-2018 End: 04-19-2018 take 10 mg by mouth every six hours Oxycodone Discontinued 10 MG PO EVERY 6 HOURS 21 April 12, 2018 1:25pm April 19, 2018 1:08am Start: 04-04-2018 End: 04-12-2018 take 10 mg by mouth every three hours Oxycodone Discontinued 10 MG PO Q3H April 04, 2018 1:00am April 12, 2018 1:25pm risperiDONE 3 mg oral tablet (1 source) Atypical Antipsychotic End: 08-01-2023 take 1 tablet by mouth twice daily risperiDONE 3 MG tablet Take 1 tablet by mouth 2 times daily. 08/01/2023 Discontinued (Stop Taking at Discharge) risperiDONE (risperDAL M-TABS) disintegrating tablet 2 mg (1 source) Start: 07-21-2023 End: 07-21-2023 take 1 tablet by mouth every four hours as needed risperiDONE (risperDAL M-TABS) disintegrating tablet 2 mg 1000 ml sodium chloride 9 mg/ml injection (4 sources) Start: 07-29-2023 End: 08-01-2023 Intravenous, at 20 mL/hr, NEEDED, Starting on Sun07/29/23 at 1718, Until Sun08/01/23 at 1529, Carrier Fluid - See Admin. Inst, 250mL 0.9NS to be used as carrier fluid for intermittent small volume or piggyback medication administration as needed. Infusion rate of the carrier fluid should be set at 20 mL/hr unless the rate as the intermittent medication is less than 20 mL/hr. For intermittent medications with a rate less than 20 mL/hr set the carrier fluid at that rate of the intermittent or piggy back medication. Start: 07-29-2023 End: 07-29-2023 1,000 mL, Intravenous, ONCE, 1 dose, On Sun07/29/23 at 1700, Give bolus. For hydration valbenazine 40 mg oral capsule (1 source) End: 08-01-2023 take 1 capsule by mouth once daily Valbenazine Tosylate 40 MG capsule Take 40 mg by mouth daily. 08/01/2023 Discontinued (Stop Taking at Discharge) Problems Active Problems Problem Classification Problem Date Documented Date Episodic/Chronic Anxiety disorders (7 sources) Anxiety attack ; Translations: [Panic disorder [episodic paroxysmal anxiety]] Onset: 06-28-2023 05-24-2023 Chronic Attention-deficit, conduct, and disruptive behavior disorders (2 sources) Abnormal behavior; Translations: [Other symptoms and signs involving appearance and behavior] 07-17-2023 Episodic E Codes: Fall (5 sources) Fall; Translations: [Unspecified fall, initial encounter] Onset: 07-29-2023 07-29-2023 Episodic Essential hypertension (3 sources) Essential hypertension; Translations: [Essential (primary) hypertension] Onset: 08-28-2022 07-31-2023 Chronic Fluid and electrolyte disorders (3 sources) Dehydration; Translations: [Dehydration] Onset: 07-29-2023 07-29-2023 Episodic Miscellaneous mental health disorders (5 sources) Catatonia; 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] Onset: 07-29-2023 07-31-2023 Chronic Mood disorders (10 sources) Manic episode, unspecified; Translations: [Manic behavior] Onset: 05-31-2023 Chronic Nonspecific chest pain (4 sources) Chest pain; Translations: [Chest pain, unspecified] Onset: 07-21-2023 Episodic Osteoarthritis (20 sources) Osteoarthritis of knee; Translations: [Primary gonarthrosis, bilateral] Onset: 08-21-2016 08-21-2016 Chronic Other infections; including parasitic (1 source) History of hepatitis B; Translations: [Personal history of other infectious and parasitic diseases] 08-09-2023 Episodic Other infections; including parasitic (1 source) History of hepatitis C; Translations: [Personal history of other infectious and parasitic diseases] 08-09-2023 Episodic Other non-traumatic joint disorders (1 source) Bilateral arthritis of knees Onset: 04-01-2018 04-01-2018 Chronic Other non-traumatic joint disorders (4 sources) Pain in left wrist; Translations: [Pain in left wrist] Onset: 02-06-2022 Episodic Other non-traumatic joint disorders (1 source) Pain of left wrist; Translations: [Pain in left wrist] 07-21-2023 Episodic Other non-traumatic joint disorders (1 source) Bilateral arthritis of knees Onset: 04-01-2018 04-01-2018 Residual codes; unclassified (1 source) Chronic pain Onset: 03-08-2018 Chronic Residual codes; unclassified (1 source) Pain; Translations: [Pain, unspecified] Episodic Residual codes; unclassified (1 source) Pain, unspecified; Translations: [Pain, unspecified] Onset: 02-06-2022 Episodic Residual codes; unclassified (1 source) Altered mental status; Translations: [Altered mental status, unspecified] 07-29-2023 Episodic Residual codes; unclassified (2 sources) Altered mental status, unspecified; Translations: [Altered mental status, unspecified] Onset: 07-29-2023 Episodic Residual codes; unclassified (1 source) Pain, unspecified; Translations: [Pain, unspecified] Onset: 12-12-2017 Schizophrenia and other psychotic disorders (14 sources) Delusional disorder; Translations: [Delusional disorders] Onset: 07-24-2023 08-02-2018 Chronic Screening and history of mental health and substance abuse codes (2 sources) H/O: schizophrenia; Translations: [Personal history of other mental and behavioral disorders] 07-17-2023 Episodic Skin and subcutaneous tissue infections (2 sources) Abscess; Translations: [Cutaneous abscess, unspecified] Onset: 02-24-2022 Episodic Substance-related disorders (20 sources) Combined opioid with other drug dependence; Translations: [Opioid dependence, uncomplicated] Chronic Substance-related disorders (2 sources) Substance abuse; Translations: [Other psychoactive substance use, unspecified, uncomplicated] Onset: 07-31-2023 07-31-2023 Episodic Unclassified (2 sources) Benzodiazepine use and dependence Unclassified (6 sources) Readiness finding; Translations: [Desire for detoxification] Past or Other Problems Problem Classification Problem [...] knee, initial encounter] Onset: 08-21-2016 12-11-2016 Episodic Other aftercare (7 sources) Other tear [...] infections (1 source) Acute frontal sinusitis Episodic Unclassified (14 sources) Acute opioid withdrawal Unclassified (1 source) Onset: 08-01-2023 08-01-2023 Results Test Name Value Interpretation Reference Range Facility Absolute lymphocyte countOrd ered By: Meeta Roberts on 08-09-2023 Lymphocytes Auto (Unsp spec) [#/Vol] 3.14 10*3/uL 0.83-4.51 [facility] Alcohol, Blood (Medical)-Ser umon 08-09-2023 SERUM ETOH < 3.0 Normal [facility] Comment on above: Result Comment: The serum:whole blood ethanol ratio is approximately 1.14 and varies slightly with hematocrit. Medical Alcohol reference interval and critical value in non-tolerant individuals; 50 - 100 Impairment 100 Intoxication 100 - 250 Severe Poisoning 250 - 400 Deep/possible fatal coma Performed By: #### L 100.0100, L501.9100, L500.2500, L505.5000 ####[facility] [id number] [place], [address] Automated lymphocyte count a s percentage of total leukocytesOrdered By: Meeta Roberts on 08-09-2023 Lymphocytes/100 WBC Auto (Unsp spec) 40.5 % 19-41 [facility] Basic Metabolic Profile (BMP )on 08-09-2023 BUN/CRE 14.5 RATIO Normal 10-20 [facility] Comment on above: Performed By: #### L 100.0100, L501.9100, L500.2500, L505.5000 ####[facility] [address] [place], [address] CA,Total 9.1 mg/dL Normal 8.5-10.1 [facility] Comment on above: Performed By: #### L 100.0100, L501.9100, L500.2500, L505.5000 ####[facility] [address] [place], [address] Chloride [Moles/Vol] 106 mmol/L Normal 98-107 [facility] Comment on above: Performed By: #### L 100.0100, L501.9100, L500.2500, L505.5000 ####[facility] [address] [place], [address] CO2 [Moles/Vol] 28.0 mmol/L Normal 21.0-32.0 [facility] Comment on above: Performed By: #### L 100.0100, L501.9100, L500.2500, L505.5000 ####[facility] [address] [place], [address] Creatinine [Mass/Vol] 0.76 mg/dL Normal 0.70-1.30 [facility] Comment on above: Result Comment: The validity of the calculated GFR GFRAA in patients over 70 years has not been determined. Clinical correlation is essential. Performed By: #### L 100.0100, L501.9100, L500.2500, L505.5000 ####[facility] [address] [place], [address] ECRCL 166.14 ml/min Normal [facility] Comment on above: Performed By: #### L 100.0100, L501.9100, L500.2500, L505.5000 ####[facility] [address] [place], [address] EST GFR - AA 141 mL/min Normal >60 [facility] Comment on above: Result Comment: Afri can Scottish GFR Calc Performed By: #### L 100.0100, L501.9100, L500.2500, L505.5000 ####[facility] [address] [place], [address] GAP 5 Normal 5-15 [facility] Comment on above: Performed By: #### L 100.0100, L501.9100, L500.2500, L505.5000 ####[facility] [address] [place], [address] GFR/1.73 sq M.predicted among non-blacks MDRD (S/P/Bld) [Vol rate/Area] 117 mL/min/{1.73_m2} Normal >60 [facility] Comment on above: Result Comment: Non- GFR Calc Performed By: #### L 100.0100, L501.9100, L500.2500, L505.5000 ####[facility] [address] [place], [address] Glucose [Mass/Vol] 93 mg/dL Normal 74-106 [facility] Comment on above: Performed By: #### L 100.0100, L501.9100, L500.2500, L505.5000 ####[facility] [address] [place], [address] Potassium [Moles/Vol] 3.8 mmol/L Normal 3.5-5.1 [facility] Comment on above: Performed By: #### L 100.0100, L501.9100, L500.2500, L505.5000 ####[facility] [address] [place], [address] Sodium [Moles/Vol] 139 mmol/L Normal 136-145 [facility] Comment on above: Performed By: #### L 100.0100, L501.9100, L500.2500, L505.5000 ####[facility] [address] [place], [address] Urea nitrogen [Mass/Vol] 11 mg/dL Normal - [facility] Comment on above: Performed By: #### L 100.0100, L501.9100, L500.2500, L505.5000 ####[facility] [address] [place], [address] Basophil percentageOrdered B y: Meeta Roberts on 08-09-2023 Basophils/100 WBC (Bld) 0.1 % 0-1 [facility] Chloride [Moles/Vol] 106 mmol/L 98-107 [facility] Eosinophils/100 WBC (Bld) 0.1 % 0-5 [facility] Glucose [Mass/Vol] 93 mg/dL 74-106 [facility] Hemoglobin (Bld) [Mass/Vol] 14.3 g/dL 13.0-16.5 [facility] Monocytes/100 WBC (Bld) 9.2 % 0-10 [facility] Neutrophils (Bld) [#/Vol] 3.9 10*3/uL 2.0-7.7 [facility] Neutrophils/100 WBC (Bld) 49.8 % 47-70 [facility] Potassium [Moles/Vol] 3.8 mmol/L 3.5-5.1 [facility] Sodium [Moles/Vol] 139 mmol/L 136-145 [facility] WBC (Bld) [#/Vol] 7.8 10*3/uL 4.4-11.0 [facility] CBC W/Diff, Automatedon - Absolute Lymph 3.14 X10 3/uL Normal 0.83-4.51 [facility] Comment on above: Performed By: #### L 100.0100, L501.9100, L500.2500, L505.5000 ####[facility] [address] [place], [address] Absolute Neut 3.9 X10 3/uL Normal 2.0-7.7 [facility] Comment on above: Performed By: #### L 100.0100, L501.9100, L500.2500, L505.5000 ####[facility] [address] [place], [address] Basophils/100 WBC (Bld) 0.1 % Normal 0-1 [facility] Comment on above: Performed By: #### L 100.0100, L501.9100, L500.2500, L505.5000 ####[facility] [address] [place], [address] Eosinophils/100 WBC (Bld) 0.1 % Normal 0-5 [facility] Comment on above: Performed By: #### L 100.0100, L501.9100, L500.2500, L505.5000 ####[facility] [address] [place], [address] Erythrocyte distribution width (RBC) [Ratio] 12.1 % Normal 11.6-14.6 [facility] Comment on above: Performed By: #### L 100.0100, L501.9100, L500.2500, L505.5000 ####[facility] [address] [place], [address] Hematocrit (Bld) [Volume fraction] 42.6 % Normal 40-54 [facility] Comment on above: Performed By: #### L 100.0100, L501.9100, L500.2500, L505.5000 ####[facility] [address] [place], [address] Hemoglobin (Bld) [Mass/Vol] 14.3 g/dL Normal 13.0-16.5 [facility] Comment on above: Performed By: #### L 100.0100, L501.9100, L500.2500, L505.5000 ####[facility] [address] [place], [address] IG% 0.300 Normal 0.0-0.9 [facility] Comment on above: Result Comment: IG% - Immature Granulocytes (promyelocytes, myelocytes and metamyelocytes) > 1% indicates that a LEFT SHIFT is Present. Performed By: #### L 100.0100, L501.9100, L500.2500, L505.5000 ####[facility] [address] [place], [address] Lymphocytes/100 WBC (Bld) 40.5 % Normal 19-41 [facility] Comment on above: Performed By: #### L 100.0100, L501.9100, L500.2500, L505.5000 ####[facility] [address] [place], [address] MCH (RBC) [Entitic mass] 29.2 pg Normal 27.0-32.0 [facility] Comment on above: Performed By: #### L 100.0100, L501.9100, L500.2500, L505.5000 ####[facility] [address] [place], [address] MCHC (RBC) [Mass/Vol] 33.6 g/dL Normal 32-36 [facility] Comment on above: Performed By: #### L 100.0100, L501.9100, L500.2500, L505.5000 ####[facility] [address] [place], [address] MCV (RBC) [Entitic vol] 86.9 fL Normal 80-94 [facility] Comment on above: Performed By: #### L 100.0100, L501.9100, L500.2500, L505.5000 ####[facility] [address] [place], [address] Monocytes/100 WBC (Bld) 9.2 % Normal 0-10 [facility] Comment on above: Performed By: #### L 100.0100, L501.9100, L500.2500, L505.5000 ####[facility] [address] [place], [address] Neutrophils/100 WBC (Bld) 49.8 % Normal 47-70 [facility] Comment on above: Performed By: #### L 100.0100, L501.9100, L500.2500, L505.5000 ####[facility] [address] [place], [address] Nucleated RBC (Bld) [#/Vol] 0 10*3/uL Normal 0-5 [facility] Comment on above: Performed By: #### L 100.0100, L501.9100, L500.2500, L505.5000 ####[facility] [address] [place], [address] Platelet mean volume (Bld) [Entitic vol] 9.9 fL Normal 6.2-12.0 [facility] Comment on above: Performed By: #### L 100.0100, L501.9100, L500.2500, L505.5000 ####[facility] [address] [place], [address] Platelets (Bld) [#/Vol] 226 10*3/uL Normal 150-450 [facility] Comment on above: Performed By: #### L 100.0100, L501.9100, L500.2500, L505.5000 ####[facility] [address] [place], [address] RBC (Bld) [#/Vol] 4.90 10*6/uL Normal 4.6-6.2 [facility] Comment on above: Performed By: #### L 100.0100, L501.9100, L500.2500, L505.5000 ####[facility] [address] [place], [address] RDW SD 38.7 fl Normal 35.1-43.9 [facility] Comment on above: Performed By: #### L 100.0100, L501.9100, L500.2500, L505.5000 ####[facility] [address] [place], [address] WBC (Bld) [#/Vol] 7.8 10*3/uL Normal 4.4-11.0 [facility] Comment on above: Performed By: #### L 100.0100, L501.9100, L500.2500, L505.5000 ####[facility] [address] [place], [address] Determination of erythrocyte mean corpuscular volume (MCV)Ordered By: Meeta Roberts on 08-09-2023 MCV (RBC) [Entitic vol] 86.9 fL 80-94 [facility] Emergency Department Summary on 08-09-2023 Emergency Department Summary [facility] Medical Records Department [address] [facility] [place] [address] Emergency Department Summary 08/09/23 MR#: [id number] Acct: [id number] Name: CRUSHERFRANSISCO Rep #: [id number] : 1975 48 From: Meeta Roberts MD PCP: [facility] Status:DEP ER Location: ED HPI HPI - Psych History of Present Illness Chief Complaint: Mental Health Informant: patient Onset/Context/Timing Onset: Today Timing: Continuous Current Severity: Moderate Maximum Severity: Severe Associated Symptoms Associated Symptoms - Psych: Positive for Change in sleeping (Reports has not slept in several days), Decreased Concentration, Easily distracted and Paranoia; Negative for Suicidal Thoughts Specific plan (suicidal thought): Denies suicidal and homicidal ideation Narrative Narrative: Patient is a 48-year-old male with past medical history significant for schizophrenia, polysubstance abuse, and hepatitis B and C who presents for to the ED from the [facility]. Patient was pink slipped for clinton. Per pink slip patient is unable to sit still has pacing has racing thoughts and NIVS with sleep. He was recently discharged from a psychiatric unit at [facility] yesterday. They report he has had a 50 pound weight loss since April of this year. He has no appetite. He does have a prior history of depression, anxiety, hallucinations, spiritual preoccupations, and unspecified schizophrenia. He was hospitalized 2 weeks ago for catatonia. He also has a history of wandering. Per patient, he was discharged from [facility] yesterday without his medication. He reports he is taking Ativan and Seroquel. Reports he did miss his doses of Ativan last p.m. and this morning. He is also not had Seroquel. He does report over the past month he has had multiple psychiatric admissions. He has been at [facility], [facility], and [facility]. He denies suicidal or homicidal ideation. He denies any visual or auditory hallucinations. He denies alcohol use. He denies illicit drug use reporting that he has been sober for a couple months. He is a 1 pack/day smoker for 35 years. He does report he has not slept in several days. He reports today he went to the counseling center because he did not have his medications. He reports he could not keep it together. He said they did give him his medications. However they were all vitamins and not Ativan or Seroquel. He does admit to having paranoid schizophrenia. He denies paranoia at this time. He also reports he was evicted from his residence approximately 1 month ago and is currently homeless. He complains of toe and bilateral knee pain. Reports he walked a lot today because he was anxious. Prior similar symptoms: Yes Recent Illness/Hospitalization : Yes [facility] Medical History Amphetamine use disorder, moderate, dependence Benzodiazepine use and dependence Drug abuse Hepatitis B Hepatitis C Opiate abuse, continuous Opiate abuse, continuous Polysubstance dependence including opioid type drug, continuous use Home Medications buprenorphine 8 mg-naloxone 2 mg sublingual film 2 film sublingual DAILY opiod dependence 05/27/23 [History Last Taken Unknown] Allergy/AdvReac Type Severity Reaction Status Date / Time No Known Allergies Allergy Verified 08/09/23 16:33 Surgical History Hx of total knee replacement S/P left knee surgery Social History Smoking Status: Current every day smoker tobacco type: cigarettes ROS ROS ED Constitutional Constitutional ED: Denies chills, fever(s) or sweats Eyes Eyes: Denies blurry vision or change in vision ENT ENT ED: Denies ear pain, rhinorrhea or sore throat Cardiovascular Cardiovascular: Denies chest pain, palpitations or racing heartbeat Respiratory/Chest Respiratory/Chest: Denies cough or dyspnea Gastrointestinal Gastrointestinal: Denies abdominal pain, diarrhea, melena, nausea or vomiting Genitourinary Genitourinary ED: Denies dysuria, hematuria or urinary frequency Musculoskeletal Musculoskeletal: Denies arthralgias, back pain or myalgias Integumentary Denies rash Neurologic Neurologic: Denies headache(s), paresthesias or weakness Psychiatric Psychiatric: Reports anxiety; Denies depression, suicidal ideation or suicidal thoughts Endocrine Endocrinology: Denies polydipsia, polyphagia or polyuria EXAM Physical Exam Narrative Exam Narrative: Patient awake, alert, anxious, cooperative Const Vital Signs: 08/09/23 16:30 08/09/23 17:30 Temperature 97.9 F Temperature Source Temporal Pulse Rate 98 87 Respiratory Rate 16 18 Blood Pressure 135/97 H 138/97 H Blood Pressure Ila (more content not included)... Normal [facility] Erythrocyte distribution wid th ratioOrdered By: Meeta Roberts on 08-09-2023 Erythrocyte distribution width (RBC) [Ratio] 12.1 % 11.6-14.6 [facility] Erythrocyte distribution wid th standard deviationOrdered By: Meeta Roberts on 08-09-2023 Erythrocyte distribution width (RBC) [Entitic vol] 38.7 fL 35.1-43.9 [facility] Hematocrit Auto (Bld) [Volum e fraction]Ordered By: Meeta Roberts on 08-09-2023 Hematocrit (Bld) [Volume fraction] 42.6 % 40-54 [facility] Immature granulocytes/100 WB C Auto (Bld)Ordered By: Meeta Roberts on 08-09-2023 Immature granulocytes/100 WBC (Bld) 0.300 % 0.0-0.9 [facility] Comment on above: IG% - Immature Granu locytes (promyelocytes, myelocytes and metamyelocytes) > 1% indicates that a LEFT SHIFT is Present. Laboratory - Chemistry and C hemistry - challengeOrdered By: Meeta Roberts on 08-09-2023 CO2 [Moles/Vol] 28.0 mmol/L 21.0-32.0 [facility] Urea nitrogen/Creatinine [Mass ratio] 14.5 mg/mg 10-20 [facility] Laboratory - Drug toxicology Ordered By: Meeta Roberts on 08-09-2023 Amphetamines Ql (U) Negative <1000 ng/mL [facility] Benzodiazepines Ql (U) Negative < 200 ng/mL [facility] Cannabinoids Screen Ql (U) Negative < 50 ng/mL [facility] Cocaine Ql (U) Negative < 300 ng/mL [facility] Opiates Ql (U) Negative < 300 ng/mL [facility] Laboratory - Hematology and Cell countsOrdered By: Meeta Roberts on 08-09-2023 MCH (RBC) [Entitic mass] 29.2 pg 27.0-32.0 [facility] MCHC (RBC) [Mass/Vol] 33.6 g/dL 32-36 [facility] Nucleated RBC/100 WBC (Bld) [Ratio] 0 % 0-5 [facility] Platelet mean volume (Bld) [Entitic vol] 9.9 fL 6.2-12.0 [facility] Platelets (Bld) [#/Vol] 226 10*3/uL 150-450 [facility] No Panel InformationOrdered By: Meeta Roberts on 08-09-2023 Estimated Creatinine Clearance Calc 166.14 ml/min [facility] Estimated GFR (MDRD) Amer 141 mL/min >60 [facility] Comment on above: GFR Calc Estimated GFR (MDRD) Non-Af Amer 117 mL/min >60 [facility] Comment on above: Non- GFR Calc Ethyl Alcohol Level < 3.0 mg/dL [facility] Comment on above: The serum:whole bloo d ethanol ratio is approximately 1.14and varies slightly with hematocrit. Medical Alcohol reference interval and critical value innon-tolerant individuals; 50 - 100 Impairment 100 Intoxication 100 - 250 Severe Poisoning 250 - 400 Deep/possible fatal coma MDMA (Ecstasy) Screen Negative < 500 ng/mL [facility] Urine Barbiturates Screen Negative < 200 ng/mL [facility] Urine Drug Screen Comment [facility] Comment on above: CONFIRMATORY TESTING FOR ALL POSITIVE URINE DRUG SCREENRESULTS WILL ONLY BE SENT OUT UPON PHYSICIAN ORDER. VISTA Urine Drug Screen methods provide only preliminaryanalytical test results. A more specific alternate chemicalmethod must be used in order to obtain a confirmedanalytical result. Gas chromatography/mass spectrometery(GC/MS) is the preferred confirmatory method. Clinicalconsideration and professional judgement should be appliedto any drug of abuse test result, particularly whenpreliminary positive results are used. URINE TCA TESTING MUST BE ORDERED SEPARATELY. USE TESTMNEMONIC: [facility] Urine Methadone Screen Negative < 300 ng/mL [facility] RBC Auto (Bld) [#/Vol]Ordere d By: Meeta Roberts on 08-09-2023 RBC (Bld) [#/Vol] 4.90 10*6/uL 4.6-6.2 [facility] Serum or plasma calcium david urement (mass/volume)Ordered By: Meeta Roberts on 08-09-2023 Calcium [Mass/Vol] 9.1 mg/dL 8.5-10.1 [facility] Serum or plasma creatinine m easurement (mass/volume)Ordered By: Meeta Roberts on 08-09-2023 Creatinine [Mass/Vol] 0.76 mg/dL 0.70-1.30 [facility] Comment on above: The validity of the calculated GFR & GFRAA in patients over 70 years has not been determined. Clinical correlation is essential. Serum or plasma urea nitroge n measurement (mass/volume)Ordered By: Meeta Roberts on 08-09-2023 Urea nitrogen [Mass/Vol] 11 mg/dL 11-07 [facility] Thin prep Papanicolaou smear with manual screeningOrdered By: Meeta Roberts on 08-09-2023 Thin prep Papanicolaou smear with manual screening 5 5-15 [facility] Urine Drug Screen (VISTA)on 08-09-2023 AMPHETAMINES Negative Normal <1000 ng/mL [facility] Comment on above: Performed By: #### L 100.0100, L501.9100, L500.2500, L505.5000 ####[facility] [address] [place], [address] BARBITIURATES Negative Normal < 200 ng/mL [facility] Comment on above: Performed By: #### L 100.0100, L501.9100, L500.2500, L505.5000 ####[facility] [address] [place], [address] BENZODIAZIPINE Negative Normal < 200 ng/mL [facility] Comment on above: Performed By: #### L 100.0100, L501.9100, L500.2500, L505.5000 ####[facility] [address] [place], [address] COCAINE Negative Normal < 300 ng/mL [facility] Comment on above: Performed By: #### L 100.0100, L501.9100, L500.2500, L505.5000 ####[facility] [address] [place], [place], [phone] ECSTACY Negative Normal < 500 ng/mL [facility] Comment on above: Performed By: #### L 100.0100, L501.9100, L500.2500, L505.5000 ####[facility] [address] [place], [address] METHADONE Negative Normal < 300 ng/mL [facility] Comment on above: Performed By: #### L 100.0100, L501.9100, L500.2500, L505.5000 ####[facility] [address] [place], [address] OPIATES Negative Normal < 300 ng/mL [facility] Comment on above: Performed By: #### L 100.0100, L501.9100, L500.2500, L505.5000 ####[facility] [address] [place], [address] PCP Negative Normal < 25 ng/mL [facility] Comment on above: Performed By: #### L 100.0100, L501.9100, L500.2500, L505.5000 ####[facility] [address] [place], [address] THC Negative Normal < 50 ng/mL [facility] Comment on above: Performed By: #### L 100.0100, L501.9100, L500.2500, L505.5000 ####[facility] [address] [place], [address] VISTA UDS PH 6 Normal [facility] Comment on above: Performed By: #### L 100.0100, L501.9100, L500.2500, L505.5000 ####[facility] [address] [place], [address] Urine phencyclidine (PCP) de tectionOrdered By: Meeta Roberts on 08-09-2023 Phencyclidine Ql (U) Negative < 25 ng/mL [facility] CKon 08-01-2023 CK [Catalytic activity/Vol] 54 U/L Normal 30-220 [facility] Comment on above: Performed By: #### H [facility] #### [facility] (DEFAULT) [address] [address] CK [Catalytic activity/Vol] 54 U/L 30 - 220 U/L [facility] Interpretation and review of laboratory results Normal [facility] HCV RNA ANDREA+probe DL = 5 iU/ mL QnOrdered By: Rosana Son on 08-01-2023 HCV RNA ANDREA+probe Ql [facility] Interpretation and review of laboratory results Normal [facility] This test was perfor med using a real time PCR assay. The dynamic range for this assay is 12-100,000,000 IU/mL. [facility] HEPATITIS C BY PCR, QUANTOrd ered By: Rosana Son on 08-01-2023 HCV RNA ANDREA+probe DL = 5 iU/mL Qn [facility] PLATELET COUNTon 08-01-2023 Platelet mean volume (Bld) [Entitic vol] 10.3 fL Normal 8.7-12.3 [facility] Comment on above: Performed By: #### [id number] #### [facility] (DEFAULT) [address] [place] [address] Platelets (Bld) [#/Vol] 205 10*3/uL Normal 146-337 [facility] Comment on above: Performed By: #### [id number] #### [facility] (DEFAULT) [address] [place] [address] Interpretation and review of laboratory results Normal [facility] Platelet mean volume (Bld) [Entitic vol] 10.3 fL 8.7 - 12.3 fL [facility] Platelets (Bld) [#/Vol] 205 10*3/uL 146 - 337 K/uL [facility] Chronic hepatitis differenti ation between hepatitis B and C virus panelOrdered By: Kady Carr on 07-31-2023 HBV core IgG+IgM Ql (S) Positive Abnormal Negative [facility] HBV surface Ab IA Ql (S) Positive Abnormal Negative [facility] Comment on above: A positive result in dicates immunity through past immunization or prior infection. HBV surface Ag Ql (S) Negative Negative [facility] HCV Ab Ql (S) Positive Abnormal Negative [facility] Comment on above: A positive result in dicates immunity through past immunization or prior infection. Interpretation and review of laboratory results Abnormal [facility] CBC,PLATELETSon 07-30-2023 Hematocrit (Bld) [Volume fraction] 39.3 % Low 39.6-48.8 [facility] Comment on above: Performed By: #### H [facility] #### [facility] (DEFAULT) [address] [place] [address] Hemoglobin (Bld) [Mass/Vol] 13.0 g/dL Low 13.4-16.8 [facility] Comment on above: Performed By: #### H [facility] #### [facility] (DEFAULT) [address] [place] [address] MCV (RBC) [Entitic vol] 87.9 fL Normal 79.0-94.5 [facility] Comment on above: Performed By: #### H E[facility] #### [facility] (DEFAULT) [address] [address] Mean Cell Hgb 29.1 pg Normal 26.1-33.3 [facility] Comment on above: Performed By: #### H EMOGC #### [facility] (DEFAULT) [address] [address] Mean Cell Hgb Conc 33.1 g/dL Normal 31.9-36.5 [facility] Comment on above: Performed By: #### H EMOGC #### [facility] (DEFAULT) [address] [address] Platelet mean volume (Bld) [Entitic vol] 9.9 fL Normal 8.7-12.3 [facility] Comment on above: Performed By: #### H EMOGC #### [facility] (DEFAULT) [address] [address] Platelets (Bld) [#/Vol] 210 10*3/uL Normal 146-337 [facility] Comment on above: Performed By: #### H EMOGC #### [facility] (DEFAULT) [address] [address] RBC (Bld) [#/Vol] 4.47 10*6/uL Normal 4.38-5.83 [facility] Comment on above: Performed By: #### H EMOGC #### [facility] (DEFAULT) [address] [address] RBC Distribution 12.5 % Normal 10.9-14.3 [facility] Comment on above: Performed By: #### H EMOGC #### [facility] (DEFAULT) [address] [address] WBC (Bld) [#/Vol] 6.14 10*3/uL Normal 3.73-10.10 [facility] Comment on above: Performed By: #### [facility] #### [facility] (DEFAULT) [address] [place] [address] Erythrocyte distribution width (RBC) [Ratio] 12.5 % 10.9 - 14.3 % [facility] Hematocrit (Bld) [Volume fraction] 39.3 % Low 39.6 - 48.8 % [facility] Hemoglobin (Bld) [Mass/Vol] 13.0 g/dL Low 13.4 - 16.8 g/dL [facility] Interpretation and review of laboratory results Abnormal [facility] MCH (RBC) [Entitic mass] 29.1 pg 26.1 - 33.3 pg [facility] MCHC (RBC) [Mass/Vol] 33.1 g/dL 31.9 - 36.5 g/dL [facility] MCV (RBC) [Entitic vol] 87.9 fL 79.0 - 94.5 fL [facility] Platelet mean volume (Bld) [Entitic vol] 9.9 fL 8.7 - 12.3 fL [facility] Platelets (Bld) [#/Vol] 210 10*3/uL 146 - 337 K/uL [facility] RBC (Bld) [#/Vol] 4.47 10*6/uL [facility] WBC (Bld) [#/Vol] 6.14 10*3/uL 3.73 - 10.10 K/uL [facility] CHEM 7 (LYTES,BUN,CREA,GLUC) on 07-30-2023 Anion gap [Moles/Vol] 12 mmol/L Normal 7-17 [facility] Comment on above: Performed By: #### H [facility] #### [facility] (DEFAULT) [address] [place] [address] Chloride [Moles/Vol] 106 mmol/L Normal 98-108 [facility] Comment on above: Performed By: #### H EMOGC #### [facility] (DEFAULT) [address] [place] [address] CO2 [Moles/Vol] 23 mmol/L Normal 21-31 [facility] Comment on above: Performed By: #### H EMOGC #### [facility] (DEFAULT) [address] [place] [address] Creatinine [Mass/Vol] 0.70 mg/dL Normal 0.70-1.30 [facility] Comment on above: Performed By: #### H EMOGC #### [facility] (DEFAULT) [address] [place] [address] eGFR, CKD-EPI, Male > Normal >=60 [facility] Comment on above: Result Comment: Repo rted eGFR is based on the CKD-EPI 2020 equation using creatinine, age, and sex. Performed By: #### H EMOGC #### [facility] (DEFAULT) [address] [place] [address] Glucose [Mass/Vol] 103 mg/dL High 70-99 [facility] Comment on above: Performed By: #### H EMOGC #### [facility] (DEFAULT) [address] [place] [address] Osmolality [Osmolality] 287 mosm/kg Normal 278-305 [facility] Comment on above: Performed By: #### H EMOGC #### [facility] (DEFAULT) [address] [place] [address] Potassium [Moles/Vol] 3.9 mmol/L Normal 3.5-5.0 [facility] Comment on above: Result Comment: Resu lts inconsistent with previous results Performed By: #### H EMOGC #### [facility] (DEFAULT) [address] [place] [address] Sodium [Moles/Vol] 137 mmol/L Normal 135-145 [facility] Comment on above: Performed By: #### H EMOGC #### [facility] (DEFAULT) [address] [place] [address] Urea nitrogen [Mass/Vol] 12 mg/dL Normal 7-25 [facility] Comment on above: Performed By: #### H [facility] #### [facility] (DEFAULT) [address] [place] [address] Urea nitrogen/Creatinine [Mass ratio] 17 mg/mg Normal [facility] Comment on above: Performed By: #### H [facility] #### [facility] (DEFAULT) [address] [place] [address] CHEM 7 (LYTES,BUN,CREA,GLUC) Ordered By: Angela Antonio on 07-30-2023 Anion gap [Moles/Vol] 12 mmol/L 7 - 17 mmol/L [facility] Chloride [Moles/Vol] 106 mmol/L 98 - 10 8 mmol/L [facility] CO2 [Moles/Vol] 23 mmol/L 21 - 31 mmol/L [facility] Creatinine [Mass/Vol] 0.70 mg/dL 0.70 - 1.30 mg/dL [facility] eGFR, CKD-EPI, Male - PINF [facility] Comment on above: Reported eGFR is bas ed on the CKD-EPI 2020 equation using creatinine, age, and sex. Glucose [Mass/Vol] 103 mg/dL High 70 - 99 mg/dL [facility] Interpretation and review of laboratory results Abnormal [facility] Osmolality Calc [Osmolality] 287 [facility] Potassium [Moles/Vol] 3.9 mmol/L 3.5 - 5.0 mmol/L [facility] Comment on above: Results inconsistent with previous results Sodium [Moles/Vol] 137 mmol/L 135 - 145 mmol/L [facility] Urea nitrogen [Mass/Vol] 12 mg/dL 7 - 25 mg/dL [facility] Urea nitrogen/Creatinine [Mass ratio] 17 mg/mg [facility] HEPATITIS BATTERY, CHRONICon 07-30-2023 Hep B Core Ab,Total (IgG+IgM) Positive Abnormal Negative [facility] Comment on above: Performed By: #### 1 [id number] #### [facility] (DEFAULT) [address] [address] Hep B Surface Ab Positive Abnormal Negative [facility] Comment on above: Result Comment: A po sitive result indicates immunity through past immunization or prior infection. Performed By: #### 1 [id number] #### [facility] (DEFAULT) [address] [address] Hepatitis B Surface Ag Negative Normal Negative [facility] Comment on above: Performed By: #### 1 [id number] #### [facility] (DEFAULT) [address] [address] Hepatitis C Antibody Positive Abnormal Negative [facility] Comment on above: Result Comment: A po sitive result indicates immunity through past immunization or prior infection. Performed By: #### 1 [id number] #### [facility] (DEFAULT) [address] [address] HEPATITIS C BY PCR, QUANTon 07-30-2023 Hepatitis C By Pcr, Quant. < Normal <12 [facility] Comment on above: Order Comment: This test was performed using a real time PCR assay. The dynamic range for this assay is 12-100,000,000 IU/mL. Performed By: #### H EPCQP #### [facility] (DEFAULT) [address] [address] Hepatitis C By Pcr,(Log) <1.08 Normal <1.08 [facility] Comment on above: Order Comment: This test was performed using a real time PCR assay. The dynamic range for this assay is 12-100,000,000 IU/mL. Performed By: #### H EPCQP #### [facility] (DEFAULT) [address] [address] MAGNESIUMon 07-30-2023 Magnesium [Mass/Vol] 1.8 mg/dL Normal 1.6-2.6 [facility] Comment on above: Performed By: #### 1 [id number] #### [facility] (DEFAULT) [address] [place] [address] Interpretation and review of laboratory results Normal [facility] Magnesium [Mass/Vol] 1.8 mg/dL 1.6 - 2 .6 mg/dL [facility] No Panel Informationon 07-29 [facility] CALCIUMon 07-29-2023 Calcium [Mass/Vol] 9.4 mg/dL Normal 8.6-10.5 [facility] Comment on above: Performed By: #### H [facility] #### [facility] (DEFAULT) [address] [place] [address] Calcium [Mass/Vol] 9.4 mg/dL 8.6 - 10. 5 mg/dL [facility] CBC AND ELECTRONIC DIFFon Abs Baso Auto < Normal 0.00-0.09 [facility] Comment on above: Performed By: #### 1 [id number] #### [facility] (DEFAULT) [address] [place] [address] Abs Eos Auto < Normal 0.00-0.48 [facility] Comment on above: Performed By: #### 1 [id number] #### [facility] (DEFAULT) [address] [place] [address] Basophils/100 WBC (Bld) 0.0 % Normal [facility] Comment on above: Performed By: #### 1 [id number] #### [facility] (DEFAULT) [address] [place] [address] DIFF STATUS Electronic Differential Normal [facility] Comment on above: Performed By: #### 1 [id number] #### [facility] (DEFAULT) [address] [place] [address] Eosinophils/100 WBC (Bld) 0.0 % Normal [facility] Comment on above: Performed By: #### 1 [id number] #### [facility] (DEFAULT) [address] [place] [address] Hematocrit (Bld) [Volume fraction] 44.9 % Normal 39.6-48.8 [facility] Comment on above: Performed By: #### 1 [id number] #### [facility] (DEFAULT) [address] [place] [address] Hemoglobin (Bld) [Mass/Vol] 15.5 g/dL Normal 13.4-16.8 [facility] Comment on above: Performed By: #### 1 [id number] #### [facility] (DEFAULT) [address] [place] [address] Immature Grans % 0.3 % Normal [facility] Comment on above: Performed By: #### 1 [id number] #### [facility] (DEFAULT) [address] [address] Immature Grans Absolute < Normal <=0.07 [facility] Comment on above: Performed By: #### 1 [id number] #### [facility] (DEFAULT) [address] [place] [address] Lymphocytes (Bld) [#/Vol] 1.57 10*3/uL Normal 0.83-3.57 [facility] Comment on above: Performed By: #### 1 [id number] #### [facility] (DEFAULT) [address] [address] Lymphocytes/100 WBC (Bld) 24.6 % Normal [facility] Comment on above: Performed By: #### 1 [id number] #### [facility] (DEFAULT) [address] [address] MCV (RBC) [Entitic vol] 86.3 fL Normal 79.0-94.5 [facility] Comment on above: Performed By: #### 1 [id number] #### [facility] (DEFAULT) [address] [place] [address] Mean Cell Hgb 29.8 pg Normal 26.1-33.3 [facility] Comment on above: Performed By: #### 1 [id number] #### [facility] (DEFAULT) [address] [address] Mean Cell Hgb Conc 34.5 g/dL Normal 31.9-36.5 [facility] Comment on above: Performed By: #### 1 [id number] #### [facility] (DEFAULT) [address] [address] Monocytes (Bld) [#/Vol] 0.47 10*3/uL Normal 0.24-0.93 [facility] Comment on above: Performed By: #### 1 [id number] #### [facility] (DEFAULT) [address] [address] Monocytes/100 WBC (Bld) 7.4 % Normal [facility] Comment on above: Performed By: #### 1 [id number] #### [facility] (DEFAULT) [address] [address] Nucleated RBC 0.0 /100 WBC Normal <=0.2 [facility] Comment on above: Performed By: #### 1 [id number] #### [facility] (DEFAULT) [address] [address] Platelet mean volume (Bld) [Entitic vol] 9.5 fL Normal 8.7-12.3 [facility] Comment on above: Performed By: #### 1 [id number] #### [facility] (DEFAULT) [address] [address] Platelets (Bld) [#/Vol] 219 10*3/uL Normal 146-337 [facility] Comment on above: Performed By: #### 1 [id number] #### [facility] (DEFAULT) [address] [address] RBC (Bld) [#/Vol] 5.20 10*6/uL Normal 4.38-5.83 [facility] Comment on above: Performed By: #### 1 [id number] #### [facility] (DEFAULT) [address] [place] [address] RBC Distribution 12.2 % Normal 10.9-14.3 [facility] Comment on above: Performed By: #### 1 [id number] #### [facility] (DEFAULT) [address] [place] [address] Segs + Bands Auto 67.7 % Normal [facility] Comment on above: Performed By: #### 1 [id number] #### [facility] (DEFAULT) [address] [place] [address] Segs + Bands,Absolute Auto 4.33 K/uL Normal 1.57-6.19 [facility] Comment on above: Performed By: #### 1 [id number] #### [facility] (DEFAULT) [address] [place] [address] WBC (Bld) [#/Vol] 6.39 10*3/uL Normal 3.73-10.10 [facility] Comment on above: Performed By: #### 1 [id number] #### [facility] (DEFAULT) [address] [place] [address] Basophils (Bld) [#/Vol] K/uL 0.00 - 0.09 K/uL [facility] Basophils/100 WBC (Bld) 0.0 % [facility] Differential cell count method Nom (Bld) Electronic Differential O [facility] Eosinophils (Bld) [#/Vol] K/uL 0.00 - 0.48 K/uL [facility] Eosinophils/100 WBC (Bld) 0.0 % [facility] Erythrocyte distribution width (RBC) [Ratio] 12.2 % 10.9 - 14.3 % [facility] Hematocrit (Bld) [Volume fraction] 44.9 % 39.6 - 48.8 % [facility] Hemoglobin (Bld) [Mass/Vol] 15.5 g/dL 13.4 - 16.8 g/dL [facility] Immature granulocytes (Bld) [#/Vol] K/uL NINF - 0.07 K/uL [facility] Immature granulocytes/100 WBC (Bld) 0.3 % [facility] Lymphocytes (Bld) [#/Vol] 1.57 10*3/uL 0.83 - 3.57 K/uL [facility] Lymphocytes/100 WBC (Bld) 24.6 % [facility] MCH (RBC) [Entitic mass] 29.8 pg 26.1 - 33.3 pg [facility] MCHC (RBC) [Mass/Vol] 34.5 g/dL 31.9 - 36.5 g/dL [facility] MCV (RBC) [Entitic vol] 86.3 fL 79.0 - 94.5 fL [facility] Monocytes (Bld) [#/Vol] 0.47 10*3/uL 0.24 - 0.93 K/uL [facility] Monocytes/100 WBC (Bld) 7.4 % [facility] Neutrophils (Bld) [#/Vol] 4.33 10*3/uL 1.57 - 6.19 K/uL [facility] Nucleated RBC/100 WBC (Bld) [Ratio] 0.0 % [facility] Platelet mean volume (Bld) [Entitic vol] 9.5 fL 8.7 - 12.3 fL [facility] Platelets (Bld) [#/Vol] 219 10*3/uL 146 - 337 K/uL [facility] RBC (Bld) [#/Vol] 5.20 10*6/uL [facility] Segmented neutrophils/100 WBC (Bld) 67.7 % [facility] WBC (Bld) [#/Vol] 6.39 10*3/uL 3.73 - 10.10 K/uL [facility] CHM 7 - EDon 07-29-2023 Anion gap [Moles/Vol] 17 mmol/L Normal 7-17 [facility] Comment on above: Performed By: #### H EMOGC #### [facility] (DEFAULT) [address] [place] [address] Chloride [Moles/Vol] 103 mmol/L Normal 98-108 [facility] Comment on above: Performed By: #### H EMOGC #### [facility] (DEFAULT) [address] [place] [address] CO2 [Moles/Vol] 21 mmol/L Normal 21-31 [facility] Comment on above: Performed By: #### H EMOGC #### [facility] (DEFAULT) [address] [place] [address] Creatinine [Mass/Vol] 0.74 mg/dL Normal 0.70-1.30 [facility] Comment on above: Performed By: #### H EMOGC #### [facility] (DEFAULT) [address] [place] [address] eGFR, CKD-EPI, Male > Normal >=60 [facility] Comment on above: Result Comment: Repo rted eGFR is based on the CKD-EPI 2020 equation using creatinine, age, and sex. Performed By: #### H EMOGC #### [facility] (DEFAULT) [address] [place] [address] Glucose [Mass/Vol] 91 mg/dL Normal 70-99 [facility] Comment on above: Performed By: #### H EMOGC #### [facility] (DEFAULT) [address] [place] [address] Osmolality [Osmolality] 287 mosm/kg Normal 278-305 [facility] Comment on above: Performed By: #### H EMOGC #### [facility] (DEFAULT) [address] [place] [address] Potassium [Moles/Vol] 5.2 mmol/L High 3.5-5.0 [facility] Comment on above: Result Comment: Mode rate Hemolysis Performed By: #### H EMOGC #### [facility] (DEFAULT) [address] [place] [address] Sodium [Moles/Vol] 136 mmol/L Normal 135-145 [facility] Comment on above: Performed By: #### H [facility] #### [facility] (DEFAULT) [address] [place] [address] Urea nitrogen [Mass/Vol] 13 mg/dL Normal 7-25 [facility] Comment on above: Performed By: #### H [facility] #### [facility] (DEFAULT) [address] [place] [address] Urea nitrogen/Creatinine [Mass ratio] 18 mg/mg Normal [facility] Comment on above: Performed By: #### H [facility] #### [facility] (DEFAULT) [address] [place] [address] Anion gap [Moles/Vol] 17 mmol/L 7 - 17 mmol/L [facility] Chloride [Moles/Vol] 103 mmol/L 98 - 10 8 mmol/L [facility] CO2 [Moles/Vol] 21 mmol/L 21 - 31 mmol/L [facility] Creatinine [Mass/Vol] 0.74 mg/dL 0.70 - 1.30 mg/dL [facility] eGFR, CKD-EPI, Male - PINF [facility] Comment on above: Reported eGFR is bas ed on the CKD-EPI 2020 equation using creatinine, age, and sex. Glucose [Mass/Vol] 91 mg/dL 70 - 99 mg/dL [facility] Interpretation and review of laboratory results Abnormal [facility] Osmolality Calc [Osmolality] 287 [facility] Potassium [Moles/Vol] 5.2 mmol/L High 3.5 - 5.0 mmol/L [facility] Comment on above: Moderate Hemolysis Sodium [Moles/Vol] 136 mmol/L 135 - 145 mmol/L [facility] Urea nitrogen [Mass/Vol] 13 mg/dL 7 - 25 mg/dL [facility] Urea nitrogen/Creatinine [Mass ratio] 18 mg/mg [facility] CKon 07-29-2023 CK [Catalytic activity/Vol] 190 U/L Normal 30-220 [facility] Comment on above: Performed By: #### 1 [id number] #### [facility] (DEFAULT) [address] [place] [address] CK [Catalytic activity/Vol] 190 U/L 30 - 220 U/L [facility] Interpretation and review of laboratory results Normal [facility] CK [Catalytic activity/Vol] 123 U/L Normal 30-220 [facility] Comment on above: Result Comment: Mode rate Hemolysis Performed By: #### H [facility] #### [facility] (DEFAULT) [address] [place] [address] CKOrdered By: Anjum Paul on 07-29-2023 CK [Catalytic activity/Vol] 123 U/L 30 - 220 U/L [facility] Comment on above: Moderate Hemolysis Interpretation and review of laboratory results Normal [facility] CT Cervical spine WO contras ton 07-29-2023 IMPRESSION: No fracture or traumatic malalignment in the cervical spine. I personally viewed and interpreted these images and I have reviewed and approved this report. OLOGY EXAM: CT SPINE CERVI EUSEBIO WITHOUT CONTRAST, 07/29/2023 15:15 PM COMPARISON: No priors available for comparison. CLINICAL INDICATIONS: 48 years Male trauma, neck pain; RELEVANT CLINICAL HISTORY: TECHNIQUE: A series of transaxial multislice computerized tomographic thin section source images are obtained with helical technique from clivus to upper thoracic spine without contrast. Reformats: Axial, sagittal, coronal. FINDINGS: Alignment is normal. Vertebral bodies are normal in height. The odontoid process is maintained. There is no disruption of the C1 ring. Prevertebral and other paraspinal soft tissues are within normal limits. Osteophytic ridging on the disc space at C5-C6 and C6-C7. Skull base and craniocervical junction is within normal limits. RADIOLOGY Grady Knight MD - 07/29/2023 EXAM: CT SPINE CERVICAL WITHOUT CONTRAST, 07/29/2023 15:15 PM COMPARISON: No priors available for comparison. CLINICAL INDICATIONS: 48 years Male trauma, neck pain; RELEVANT CLINICAL HISTORY: TECHNIQUE: A series of transaxial multislice computerized tomographic thin section source images are obtained with helical technique from clivus to upper thoracic spine without contrast. Reformats: Axial, sagittal, coronal. FINDINGS: Alignment is normal. Vertebral bodies are normal in height. The odontoid process is maintained. There is no disruption of the C1 ring. Prevertebral and other paraspinal soft tissues are within normal limits. Osteophytic ridging on the disc space at C5-C6 and C6-C7. Skull base and craniocervical junction is within normal limits. IMPRESSION IMPRESSION: No fracture or traumatic malalignment in the cervical spine. I personally viewed and interpreted these images and I have reviewed and approved this report. [facility] Rad[facility] Study observation (narrative) [facility] CT HEAD WITHOUT CONTRASTon 0 07-29-2023 CT HEAD WITHOUT CONTRAST EXAM: CT HEAD WITHOUT CONTRAST, 07/29/2023 3:13 PM COMPARISON: No priors available for comparison. CLINICAL INDICATIONS: 48 years Male AMS, fall; RELEVANT CLINICAL HISTORY: TECHNIQUE: A series of transaxial computerized tomographic images are obtained from base of skull to vertex without intravenous contrast. Axial whole-head and thin section posterior fossa slices are provided. Reformats: Sagittal and coronal. FINDINGS: Monreal-white matter differentiation is preserved. No acute large territory infarction is seen. No acute intracranial hemorrhage is seen. No significant mass effect or midline shift. Ventricles are normal in size and configuration for patient age. Skull appears intact. Visualized orbits appear normal. Visualized paranasal sinuses are clear. IMPRESSION: No acute intracranial findings. I personally viewed and interpreted these images and I have reviewed and approved this report. Normal [facility] CT Head WO contraston 2023 IMPRESSION: No acute intracranial findings. I personally viewed and interpreted these images and I have reviewed and approved this report. OLOGY EXAM: CT HEAD WITHOU T CONTRAST, 07/29/2023 3:13 PM COMPARISON: No priors available for comparison. CLINICAL INDICATIONS: 48 years Male AMS, fall; RELEVANT CLINICAL HISTORY: TECHNIQUE: A series of transaxial computerized tomographic images are obtained from base of skull to vertex without intravenous contrast. Axial whole-head and thin section posterior fossa slices are provided. Reformats: Sagittal and coronal. FINDINGS: Monreal-white matter differentiation is preserved. No acute large territory infarction is seen. No acute intracranial hemorrhage is seen. No significant mass effect or midline shift. Ventricles are normal in size and configuration for patient age. Skull appears intact. Visualized orbits appear normal. Visualized paranasal sinuses are clear. RADIOLOGY Grady Knight MD - 07/29/2023 EXAM: CT HEAD WITHOUT CONTRAST, 07/29/2023 3:13 PM COMPARISON: No priors available for comparison. CLINICAL INDICATIONS: 48 years Male AMS, fall; RELEVANT CLINICAL HISTORY: TECHNIQUE: A series of transaxial computerized tomographic images are obtained from base of skull to vertex without intravenous contrast. Axial whole-head and thin section posterior fossa slices are provided. Reformats: Sagittal and coronal. FINDINGS: Monreal-white matter differentiation is preserved. No acute large territory infarction is seen. No acute intracranial hemorrhage is seen. No significant mass effect or midline shift. Ventricles are normal in size and configuration for patient age. Skull appears intact. Visualized orbits appear normal. Visualized paranasal sinuses are clear. IMPRESSION IMPRESSION: No acute intracranial findings. I personally viewed and interpreted these images and I have reviewed and approved this report. [facility] Radiology Study observation (narrative) [facility] CT Head WO contrastOrdered B y: Grady Knight on 07-29-2023 [facility] Work Phone: CT SPINE CERVICAL WITHOUT CO NTRASTon 07-29-2023 CT SPINE CERVICAL WITHOUT CONTRAST EXAM: CT SPINE CERVICAL WITHOUT CONTRAST, 07/29/2023 15:15 PM COMPARISON: No priors available for comparison. CLINICAL INDICATIONS: 48 years Male trauma, neck pain; RELEVANT CLINICAL HISTORY: TECHNIQUE: A series of transaxial multislice computerized tomographic thin section source images are obtained with helical technique from clivus to upper thoracic spine without contrast. Reformats: Axial, sagittal, coronal. FINDINGS: Alignment is normal. Vertebral bodies are normal in height. The odontoid process is maintained. There is no disruption of the C1 ring. Prevertebral and other paraspinal soft tissues are within normal limits. Osteophytic ridging on the disc space at C5-C6 and C6-C7. Skull base and craniocervical junction is within normal limits. IMPRESSION: No fracture or traumatic malalignment in the cervical spine. I personally viewed and interpreted these images and I have reviewed and approved this report. Normal [facility] EXTRA URINEon 07-29-2023 [facility] FLUAV and FLUBV Ag IA.rapid Nom (Unsp spec)on 07-29-2023 FLUAV Ag IA.rapid Ql (Nph) Not detected Not Detected [facility] FLUBV Ag IA.rapid Ql (Nph) Not detected Not Detected [facility] Interpretation and review of laboratory results Normal [facility] This test utilizes isothermal nucleic amplification technology for the differential qualitative detection of influenza A and influenza B viral nucleic acids. [facility] GOLD TOP TUBEon 07-29-2023 [facility] HEPATIC FUNCTION PANELon Albumin [Mass/Vol] 4.4 g/dL Normal 3.5-5.0 [facility] Comment on above: Performed By: #### [facility] #### [facility] (DEFAULT) [address] [place] [address] ALP [Catalytic activity/Vol] 63 U/L Normal 32-126 [facility] Comment on above: Performed By: #### H [facility] #### [facility] (DEFAULT) [address] [place] [address] ALT [Catalytic activity/Vol] 14 U/L Normal 10-52 [facility] Comment on above: Result Comment: Mode rate Hemolysis Performed By: #### H [facility] #### [facility] (DEFAULT) [address] [place] [address] AST [Catalytic activity/Vol] 31 U/L Normal 10-39 [facility] Comment on above: Result Comment: Mode rate Hemolysis Performed By: #### H EMOGC #### [facility] (DEFAULT) [address] [place] [address] Bilirubin [Mass/Vol] 0.6 mg/dL Normal <1.5 [facility] Comment on above: Result Comment: Mode rate Hemolysis Performed By: #### H EMO #### [facility] (DEFAULT) [address] [place] [address] Bilirubin.indirect [Mass/Vol] 0.1 mg/dL Normal <0.3 [facility] Comment on above: Result Comment: Mode rate Hemolysis Performed By: #### H EMO #### [facility] (DEFAULT) [address] [place] [address] Protein [Mass/Vol] 7.0 g/dL Normal 6.4-8.3 [facility] Comment on above: Performed By: #### H EMO #### [facility] (DEFAULT) [address] [place] [address] Albumin [Mass/Vol] 4.4 g/dL 3.5 - 5.0 g/dL [facility] ALP [Catalytic activity/Vol] 63 U/L 32 - 126 U/L [facility] ALT [Catalytic activity/Vol] 14 U/L 10 - 52 U/L [facility] Comment on above: Moderate Hemolysis AST [Catalytic activity/Vol] 31 U/L 10 - 39 U/L [facility] Comment on above: Moderate Hemolysis Bilirubin [Mass/Vol] 0.6 [facility]/dL [facility]dL [facility] Comment on above: Moderate Hemolysis Bilirubin.direct [Mass/Vol] 0.1 mg/dL NINF - 0.3 mg/dL [facility] Comment on above: Moderate Hemolysis Protein [Mass/Vol] 7.0 g/dL 6.4 - 8.3 g/dL [facility] HIGH SENSITIVITY TROPONIN I - SINGLE ORDERon 07-29-2023 hs-Troponin I <3 Normal <53 [facility] Comment on above: Order Comment: Acute Coronary Syndrome (ACS): Initial Evaluation and Management: [email or web address] [email or web address] Performed By: #### L [id number] #### [facility] (DEFAULT) [address] [place] [address] Interpretation and review of laboratory results Normal [facility] Troponin I.cardiac High sensitivity method [Mass/Vol] ng/L NINF - 53 ng/L [facility] INFLUENZA A/B RAPID MOLECULA Zhen 07-29-2023 Influenza A, Molecular Not detected Normal Not Detected [facility] Comment on above: Order Comment: Acute Coronary Syndrome (ACS): Initial Evaluation and Management: [email or web address] [email or web address] Performed By: #### 1 [id number] #### [facility] (DEFAULT) [address] [place] [address] Influenza B, Molecular Not detected Normal Not Detected [facility] Comment on above: Order Comment: Acute Coronary Syndrome (ACS): Initial Evaluation and Management: [email or web address] [email or web address] Performed By: #### 1 [id number] #### [facility] (DEFAULT) [address] [place] [address] MAGNESIUMon 07-29-2023 Magnesium [Mass/Vol] 2.0 mg/dL Normal 1.6-2.6 [facility] Comment on above: Result Comment: Mode rate Hemolysis Performed By: #### H EMOGC #### [facility] (DEFAULT) [address] [place] [address] Magnesium [Mass/Vol] 2.0 mg/dL 1.6 - 2 .6 mg/dL [facility] Comment on above: Moderate Hemolysis No Panel Informationon 07-28 [facility] Interpretation and review of laboratory results Normal [facility] PHOSPHATE, INORGANICon 07-28 Phosphorous 4.1 mg/dL Normal 2.2-4.6 [facility] Comment on above: Result Comment: Mode rate Hemolysis Performed By: #### H [facility] #### [facility] (DEFAULT) [address] [place] [address] Phosphate [Mass/Vol] 4.1 mg/dL 2.2 - 4 .6 mg/dL [facility] Comment on above: Moderate Hemolysis POC VENOUS BLOOD GASon 07-28 Base excess Calc (Bld) [Moles/Vol] 0.3 mmol/L -3.0 - 3.0 mmol/L [facility] Calcium.ionized (Bld) [Mass/Vol] 4.92 mg/dL 4.60 - 5.30 mg/dL [facility] Carboxyhemoglobin (Bld) [Mass fraction] 2.2 % High NINF - 1.5 % [facility] CO2 (Bld) [Partial pressure] 35 mm[Hg] Low [facility] Glucose [Mass/Vol] 91 mg/dL 70 - 99 mg/dL [facility] HCO3 (Bld) [Moles/Vol] 24 mmol/L 22 - 29 mmol/L [facility] Hematocrit (Bld) [Volume fraction] 47.0 % 40.2 - 50.4 % [facility] Hemoglobin (Bld) [Mass/Vol] 15.6 g/dL 13.4 - 16.8 g/dL [facility] Interpretation and review of laboratory results Abnormal [facility] Lactate [Moles/Vol] 1.2 mmol/L 0.5 - 1. 6 mmol/L [facility] Methemoglobin (Bld) [Mass fraction] 0.7 % NINF - 1.5 % [facility] Oxygen (Bld) [Partial pressure] 79 mm[Hg] mm Hg [facility] Comment on above: Venous pO2 is not re commended for the evaluation of oxygen status, clinical correlation is recommended. Oxygen saturation in Blood 97 % High 70 - 80 % [facility] Oxyhemoglobin 94 % 94 - 98 % [facility] pH (Bld) 7.45 [pH] High 7.32 - 7.43 [facility] Potassium [Moles/Vol] 4.0 mmol/L 3.5 - 5.0 mmol/L [facility] Sodium [Moles/Vol] 133 mmol/L Low 135 - 145 mmol/L [facility] Specimen source Nom (Unsp spec) Venous [facility] Test performed at address of the patient encounter. [facility] Portable XR Chest Viewson IMPRESSION: No acute cardiopulmonary disease OLOGY EXAM: XR CHEST 1 VIE W PORTABLE, 07/29/2023 14:55 PM COMPARISON: July 21, 2023 CLINICAL INDICATIONS: fatigue weakness RELEVANT CLINICAL HISTORY: FINDINGS: (Adequate technique) Implanted Devices: None Thorax: No acute findings in the chest. RADIOLOGY Yudi Antonio MD - 07/29/2023 EXAM: XR CHEST 1 VIEW PORTABLE, 07/29/2023 14:55 PM COMPARISON: July 21, 2023 CLINICAL INDICATIONS: fatigue weakness RELEVANT CLINICAL HISTORY: FINDINGS: (Adequate technique) Implanted Devices: None Thorax: No acute findings in the chest. IMPRESSION IMPRESSION: No acute cardiopulmonary disease [facility] Radiology Study observation (narrative) [facility] Portable XR Chest ViewsOrder ed By: Yudi Antonio on 07-29-2023 [facility] Work Phone: SARS-COV-2 RAPIDon SARS-CoV-2 (COVID-19) RNA ANDREA+probe Ql (Unsp spec) Not detected Normal NOT DETECTED [facility] Comment on above: Order Comment: Use a janak, foam, polyester, or flocked swab to collect a nasal or nasopharyngeal specimen. After collection, place in a clean, plastic screw cap vial, cap tightly and label with patient information. Transport double bagged in biohazard bag at room temperature. Must be received within 60 minutes of collection. Collection must be done while wearing N-95 mask, eye protection, gown, and gloves. Result Comment: [facility] Negative results do not preclude SARS-CoV-2 infection and should not be used as the sole basis for treatment or other patient management decisions. Optimum specimen types and timing for peak viral levels during infections caused by SARS-CoV-2 has not been determined. The possibility of a false negative result should especially be considered if the patient's recent exposures or clinical presentation suggest that SARS-CoV-2 infection is probable, and diagnostic tests for other causes of illness (e.g., other respiratory illness) are negative. Collection of a new specimen and re-testing may be necessary if the patient is critically ill or clinically deteriorating. This test was performed using isothermal nucleic acid amplification technology for the qualitative detection of SARS-CoV-2 nucleic acid. Performed By: #### L [id number] #### [facility] (DEFAULT) [address] [place] [address] SARS-CoV-2 (COVID-19) RNA NA A+probe Ql (Unsp spec)on 07-29-2023 Interpretation and review of laboratory results Normal [facility] SARS-CoV-2 (COVID-19) RdRp gene ANDREA+probe Ql (Resp) Not detected NOT DETECTED [facility] Comment on above: [facility] Negative results do not preclude SARS-CoV-2 infection and should not be used as the sole basis for treatment or other patient management decisions. Optimum specimen types and timing for peak viral levels during infections caused by SARS-CoV-2 has not been determined. The possibility of a false negative result should especially be considered if the patient's recent exposures or clinical presentation suggest that SARS-CoV-2 infection is probable, and diagnostic tests for other causes of illness (e.g., other respiratory illness) are negative. Collection of a new specimen and re-testing may be necessary if the patient is critically ill or clinically deteriorating. This test was performed using isothermal nucleic acid amplification technology for the qualitative detection of SARS-CoV-2 nucleic acid. [facility] URINALYSIS REFLEX TO CULTURE PERFORMABLEon 07-29-2023 Appearance (U) Clear Normal Clear [facility] Comment on above: Order Comment: For i ndwelling catheters, specimen collection is acceptable on catheter day 1 and 2 only. ? Performed By: #### U [id number] #### [facility] (DEFAULT) [address] [address] Bacteria ABSENT Normal ABSENT [facility] Comment on above: Order Comment: For i ndwelling catheters, specimen collection is acceptable on catheter day 1 and 2 only. ? Performed By: #### U [id number] #### [facility] (DEFAULT) [address] [place] [address] Blood Urine Negative Normal Negative [facility] Comment on above: Order Comment: For i ndwelling catheters, specimen collection is acceptable on catheter day 1 and 2 only. ? Performed By: #### U [id number] #### [facility] (DEFAULT) [address] [place] [address] Color (U) Yellow Normal Yellow [facility] Comment on above: Order Comment: For i ndwelling catheters, specimen collection is acceptable on catheter day 1 and 2 only. ? Performed By: #### U [id number] #### [facility] (DEFAULT) [address] [place] [address] Glucose Ql (U) Negative Normal Negative [facility] Comment on above: Order Comment: For i ndwelling catheters, specimen collection is acceptable on catheter day 1 and 2 only. ? Performed By: #### U [id number] #### [facility] (DEFAULT) [address] [place] [address] Ketones Ql (U) 40 mg/dL = Moderate Abnormal Negative O [facility] Comment on above: Order Comment: For i ndwelling catheters, specimen collection is acceptable on catheter day 1 and 2 only. ? Performed By: #### U [id number] #### [facility] (DEFAULT) [address] [place] [address] Leukocyte esterase Test strip Ql (U) Negative Normal Negative [facility] Comment on above: Order Comment: For i ndwelling catheters, specimen collection is acceptable on catheter day 1 and 2 only. ? Performed By: #### U [id number] #### [facility] (DEFAULT) [address] [place] [address] Nitrites Urine Negative Normal Negative [facility] Comment on above: Order Comment: For i ndwelling catheters, specimen collection is acceptable on catheter day 1 and 2 only. ? Performed By: #### U [id number] #### [facility] (DEFAULT) [address] [place] [address] pH (U) 5.5 [pH] Normal 5.0-7.0 [facility] Comment on above: Order Comment: For i ndwelling catheters, specimen collection is acceptable on catheter day 1 and 2 only. ? Performed By: #### U [id number] #### [facility] (DEFAULT) [address] [place] [address] 53565 Protein Urine Negative Normal Negative [facility] Comment on above: Order Comment: For i ndwelling catheters, specimen collection is acceptable on catheter day 1 and 2 only. ? Performed By: #### U [id number] #### [facility] (DEFAULT) [address] [place] [address] 35492 RBC Urine 0-2 Normal 0-2 [facility] Comment on above: Order Comment: For i ndwelling catheters, specimen collection is acceptable on catheter day 1 and 2 only. ? Performed By: #### U [id number] #### [facility] (DEFAULT) [address] [place] [address] 11446 Specific [place] Urine 1.028 Normal 1.001-1.035 O [facility] Comment on above: Order Comment: For i ndwelling catheters, specimen collection is acceptable on catheter day 1 and 2 only. ? Performed By: #### U [id number] #### [facility] (DEFAULT) [address] [place] [address]41 Squamous/Epithelial Cells 0-2/hpf Normal 0-2/hpf, 3-5/hpf = 1+ [facility] Comment on above: Order Comment: For i ndwelling catheters, specimen collection is acceptable on catheter day 1 and 2 only. ? Performed By: #### U [id number] #### [facility] (DEFAULT) [address] [place] [address] 12796 Urobilinogen Urine 1.0 E.U./dL Normal 0.2 E.U/d L, 1.0 E.U/dL [facility] Comment on above: Order Comment: For i ndwelling catheters, specimen collection is acceptable on catheter day 1 and 2 only. ? Performed By: #### U [id number] #### [facility] (DEFAULT) [address] [place] [address]907 WBC Urine 0 - 5 Normal 0 - 5 [facility] Comment on above: Order Comment: For i ndwelling catheters, specimen collection is acceptable on catheter day 1 and 2 only. ? Performed By: #### U [id number] #### [facility] (DEFAULT) [address] [place] [address] Appearance (U) Clear Clear [facility] Bacteria LM Ql (Urine sed) ABSENT ABSENT [facility] Color (U) Yellow Yellow [facility] Epithelial cells.squamous LM Ql (Urine sed) 0-2/hpf 0-2/hpf, 3-5/hpf = 1+ [facility] Glucose Test strip (U) [Mass/Vol] Negative Negative [facility] Interpretation and review of laboratory results Abnormal [facility] Ketones (U) [Mass/Vol] 40 mg/dL = Moderate Abnormal Nega tive [facility] Leukocyte esterase Test strip Ql (U) Negative Negative [facility] Nitrite Ql (U) Negative Negative [facility] pH (U) 5.5 [pH] 5.0 - 7.0 [facility] Protein (U) [Mass/Vol] Negative Negative [facility] RBC (U) [#/Vol] Negative Negative U [facility] RBC LM.HPF (Urine sed) [#/Area] 0-2 [facility] Specific gravity (U) [Rel density] 1.028 1.001 - 1.035 [facility] Urobilinogen (U) [Mass/Vol] 1.0 E.U./dL 0.2 E.U/dL, 1.0 E.U/dL [facility] WBC LM.HPF (Urine sed) [#/Area] 0 - 5 [facility] URINE DRUG SCREEN 10on 07-28 Amphetamine/Methamphet amine Not detected Normal Cutoff: 500 ng/mL [facility] Comment on above: Order Comment: For edical purposes only. Positive results are unconfirmed unless otherwise noted. Performed By: #### H EMO #### [facility] (DEFAULT) [address] [address] Barbiturates Not detected Normal Cutoff: 200 ng/mL [facility] Comment on above: Order Comment: For edical purposes only. Positive results are unconfirmed unless otherwise noted. Performed By: #### H EMOGC #### [facility] (DEFAULT) [address] [address] Benzodiazepines Not detected Normal Cutoff: 200 ng/mL [facility] Comment on above: Order Comment: For m edical purposes only. Positive results are unconfirmed unless otherwise noted. Performed By: #### H EMOGC #### [facility] (DEFAULT) [address] [address] Buprenorphine Not detected Normal Cutoff: 5 ng/mL [facility] Comment on above: Order Comment: For edical purposes only. Positive results are unconfirmed unless otherwise noted. Performed By: #### H EMOGC #### [facility] (DEFAULT) [address] [address] Cannabinoids Screen Ql (U) Not detected Normal Cutoff: 50 ng/mL [facility] Comment on above: Order Comment: For m edical purposes only. Positive results are unconfirmed unless otherwise noted. Performed By: #### H EMOGC #### [facility] (DEFAULT) [address] [address] Cocaine Not detected Normal Cutoff: 150 ng/mL [facility] Comment on above: Order Comment: For m edical purposes only. Positive results are unconfirmed unless otherwise noted. Performed By: #### H EMOGC #### [facility] (DEFAULT) [address] [address] Fentanyl Not detected Normal Cutoff: 1 ng/mL [facility] Comment on above: Order Comment: For m edical purposes only. Positive results are unconfirmed unless otherwise noted. Performed By: #### H EMOGC #### [facility] (DEFAULT) [address] [address] Methadone Not detected Normal Cutoff: 300 ng/mL [facility] Comment on above: Order Comment: For edical purposes only. Positive results are unconfirmed unless otherwise noted. Performed By: #### H EMOGC #### [facility] (DEFAULT) [address] [address] Opiates Not detected Normal Cutoff: 300 ng/mL [facility] Comment on above: Order Comment: For edical purposes only. Positive results are unconfirmed unless otherwise noted. Performed By: #### H EMOGC #### [facility] (DEFAULT) [address] [address] Oxycodone Not detected Normal Cutoff: 100 ng/mL [facility] Comment on above: Order Comment: For edical purposes only. Positive results are unconfirmed unless otherwise noted. Performed By: #### H EMOGC #### [facility] (DEFAULT) [address] [address] URINE DRUG SCREEN 10Ordered By: Adore Kingston on 07-29-2023 Amphetamine+Methamphet amine Screen (U) [Mass/Vol] Not detected Cutoff: 500 ng/mL [facility] Barbiturates Ql (U) Not detected Cutoff: 200 ng/mL [facility] Benzodiazepines Ql (U) Not detected Cutof f: 200 ng/mL [facility] Buprenorphine Ql (U) Not detected Cutoff: 5 ng/mL [facility] Cannabinoids Screen Ql (U) Not detected Cutoff: 50 ng/mL [facility] Cocaine Ql (U) Not detected Cutoff: 150 ng/mL [facility] fentaNYL Ql (U) Not detected Cutoff: 1 ng/mL [facility] Interpretation and review of laboratory results Normal [facility] Methadone Ql (U) Not detected Cutoff: 300 ng/mL [facility] Opiates Ql (U) Not detected Cutoff: 300 ng/mL [facility] oxyCODONE Ql (U) Not detected Cutoff: 100 ng/mL [facility] For medical purposes only. Positive results are unconfirmed unless otherwise noted. [facility] XR CHEST 1 VIEW PORTABLEon 0 07-29-2023 XR CHEST 1 VIEW PORTABLE EXAM: XR CHEST 1 VIEW PORTABLE, 07/29/2023 14:55 PM COMPARISON: July 21, 2023 CLINICAL INDICATIONS: fatigue weakness RELEVANT CLINICAL HISTORY: FINDINGS: (Adequate technique) Implanted Devices: None Thorax: No acute findings in the chest. IMPRESSION: No acute cardiopulmonary disease Normal [facility] CT HEAD OR BRAIN WITHOUT CON TRASTon 07-23-2023 CT HEAD OR BRAIN WITHOUT CONTRAST EXAMINATION: CT OF THE HEAD WITHOUT CONTRAST 07/23/2023 TECHNIQUE: CT of the head was performed without the administration of intravenous contrast. Dose modulation, iterative reconstruction, and/or weight based adjustment of the mA/kV was utilized to reduce the radiation dose to as low as reasonably achievable. COMPARISON: None. HISTORY: ORDERING SYSTEM PROVIDED HISTORY: seizure; TECHNOLOGIST PROVIDED HISTORY: Illness/Other Acuity: Acute Reason for Exam: seizure Type of Encounter: Initial Additional signs and symptoms: seizure FINDINGS: BRAIN/VENTRICLES: No acute intracranial hemorrhage or extraaxial fluid collection. Monreal-white differentiation is maintained. No evidence of mass, mass effect or midline shift. No evidence of hydrocephalus. ORBITS: The visualized portion of the orbits demonstrate no acute abnormality. SINUSES: The visualized paranasal sinuses and mastoid air cells demonstrate no acute abnormality. SOFT TISSUES/SKULL: No acute abnormality of the visualized skull or soft tissues. IMPRESSION: No acute intracranial abnormality. Workstation ID: [id number] Dictated by: STEFFANY GA on SunJul 23, 2023 8:34:09 PM EDT Transcribed by: STEFFANY GA on SunJul 23, 2023 8:34:09 PM EDT Finalized by: STEFFANY GA on SunJul 23, 2023 8:34:09 PM EDT [facility] Comment on above: Order Comment: Injur y/Trauma or Illness?:Illness/Other How long have you had these symptoms (acute/chronic)?:Acute Reason for exam?:seizure Type of Exam?:Initial Additional signs and symptoms?:seizure CBC AND ELECTRONIC DIFFon Abs Baso Auto < Normal 0.00-0.09 [facility] Comment on above: Performed By: #### L [id number] #### [facility] (DEFAULT) [address] [address] Abs Eos Auto < Normal 0.00-0.48 [facility] Comment on above: Performed By: #### L [id number] #### [facility] (DEFAULT) [address] [address] Basophils/100 WBC (Bld) 0.0 % Normal [facility] Comment on above: Performed By: #### L [id number] #### [facility] (DEFAULT) [address] [address] DIFF STATUS Electronic Differential Normal [facility] Comment on above: Performed By: #### L [id number] #### [facility] (DEFAULT) [address] [address] Eosinophils/100 WBC (Bld) 0.2 % Normal [facility] Comment on above: Performed By: #### L [id number] #### [facility] (DEFAULT) [address] [address] Hematocrit (Bld) [Volume fraction] 38.5 % Low 39.6-48.8 [facility] Comment on above: Performed By: #### L [id number] #### [facility] (DEFAULT) [address] [address] Hemoglobin (Bld) [Mass/Vol] 13.0 g/dL Low 13.4-16.8 [facility] Comment on above: Performed By: #### L [id number] #### [facility] (DEFAULT) [address] [address] Immature Grans % 0.3 % Normal [facility] Comment on above: Performed By: #### L [id number] #### [facility] (DEFAULT) [address] [address] Immature Grans Absolute < Normal <=0.07 [facility] Comment on above: Performed By: #### L [id number] #### [facility] (DEFAULT) [address] [address] Lymphocytes (Bld) [#/Vol] 2.24 10*3/uL Normal 0.83-3.57 [facility] Comment on above: Performed By: #### L [id number] #### [facility] (DEFAULT) [address] [address] Lymphocytes/100 WBC (Bld) 37.1 % Normal [facility] [facility] Comment on above: Performed By: #### L [id number] #### [facility] (DEFAULT) [address] [address] MCV (RBC) [Entitic vol] 87.3 fL Normal 79.0-94.5 [facility] Comment on above: Performed By: #### L [id number] #### [facility] (DEFAULT) [address] [address] Mean Cell Hgb 29.5 pg Normal 26.1-33.3 [facility] Comment on above: Performed By: #### L [id number] #### [facility] (DEFAULT) [address] [address] Mean Cell Hgb Conc 33.8 g/dL Normal 31.9-36.5 [facility] Comment on above: Performed By: #### L [id number] #### [facility] (DEFAULT) [address] [address] Monocytes (Bld) [#/Vol] 0.45 10*3/uL Normal 0.24-0.93 [facility] Comment on above: Performed By: #### L [id number] #### [facility] (DEFAULT) [address] [address] Monocytes/100 WBC (Bld) 7.5 % Normal [facility] Comment on above: Performed By: #### L [id number] #### [facility] (DEFAULT) [address] [address] Nucleated RBC 0.0 /100 WBC Normal <=0.2 [facility] Comment on above: Performed By: #### L [id number] #### [facility] (DEFAULT) [address] [address] Platelet mean volume (Bld) [Entitic vol] 9.5 fL Normal 8.7-12.3 [facility] Comment on above: Performed By: #### L [id number] #### [facility] (DEFAULT) [address] [address] Platelets (Bld) [#/Vol] 208 10*3/uL Normal 146-337 [facility] Comment on above: Performed By: #### L [id number] #### [facility] (DEFAULT) [address] [address] RBC (Bld) [#/Vol] 4.41 10*6/uL Normal 4.38-5.83 [facility] Comment on above: Performed By: #### L [id number] #### [facility] (DEFAULT) [address] [place] [address] RBC Distribution 12.4 % Normal 10.9-14.3 [facility] Comment on above: Performed By: #### L [id number] #### [facility] (DEFAULT) [address] [place] [address] Segs + Bands Auto 54.9 % Normal [facility] Comment on above: Performed By: #### L [id number] #### [facility] (DEFAULT) [address] [place] [address] Segs + Bands,Absolute Auto 3.31 K/uL Normal 1.57-6.19 [facility] Comment on above: Performed By: #### L [id number] #### [facility] (DEFAULT) [address] [place] [address] WBC (Bld) [#/Vol] 6.03 10*3/uL Normal 3.73-10.10 [facility] Comment on above: Performed By: #### L [id number] #### [facility] (DEFAULT) [address] [place] [address] Basophils (Bld) [#/Vol] K/uL 0.00 - 0.09 K/uL [facility] Basophils/100 WBC (Bld) 0.0 % [facility] Differential cell count method Nom (Bld) Electronic Differential [facility] Eosinophils (Bld) [#/Vol] K/uL 0.00 - 0.48 K/uL [facility] Eosinophils/100 WBC (Bld) 0.2 % [facility] Erythrocyte distribution width (RBC) [Ratio] 12.4 % 10.9 - 14.3 % [facility] Hematocrit (Bld) [Volume fraction] 38.5 % Low 39.6 - 48.8 % [facility] Hemoglobin (Bld) [Mass/Vol] 13.0 g/dL Low 13.4 - 16.8 g/dL [facility] Immature granulocytes (Bld) [#/Vol] K/uL NINF - 0.07 K/uL [facility] Immature granulocytes/100 WBC (Bld) 0.3 % [facility] Interpretation and review of laboratory results Abnormal [facility] Lymphocytes (Bld) [#/Vol] 2.24 10*3/uL 0.83 - 3.57 K/uL [facility] Lymphocytes/100 WBC (Bld) 37.1 % [facility] MCH (RBC) [Entitic mass] 29.5 pg 26.1 - 33.3 pg [facility] MCHC (RBC) [Mass/Vol] 33.8 g/dL 31.9 - 36.5 g/dL [facility] MCV (RBC) [Entitic vol] 87.3 fL 79.0 - 94.5 fL [facility] Monocytes (Bld) [#/Vol] 0.45 10*3/uL 0.24 - 0.93 K/uL [facility] Monocytes/100 WBC (Bld) 7.5 % [facility] Neutrophils (Bld) [#/Vol] 3.31 10*3/uL 1.57 - 6.19 K/uL [facility] Nucleated RBC/100 WBC (Bld) [Ratio] 0.0 % [facility] Platelet mean volume (Bld) [Entitic vol] 9.5 fL 8.7 - 12.3 fL [facility] Platelets (Bld) [#/Vol] 208 10*3/uL 146 - 337 K/uL [facility] RBC (Bld) [#/Vol] 4.41 10*6/uL [facility] Segmented neutrophils/100 WBC (Bld) 54.9 % [facility] WBC (Bld) [#/Vol] 6.03 10*3/uL 3.73 - 10.10 K/uL [facility] CHM 7 - EDon 07-21-2023 Anion gap [Moles/Vol] 12 mmol/L Normal 7-17 [facility] Comment on above: Performed By: #### 1 [id number] #### [facility] (DEFAULT) [address] [place] [address] Chloride [Moles/Vol] 106 mmol/L Normal 98-108 [facility] Comment on above: Performed By: #### 1 [id number] #### [facility] (DEFAULT) [address] [place] [address] CO2 [Moles/Vol] 25 mmol/L Normal 21-31 [facility] Comment on above: Performed By: #### 1 [id number] #### [facility] (DEFAULT) [address] [place] [address] Creatinine [Mass/Vol] 0.73 mg/dL Normal 0.70-1.30 [facility] Comment on above: Performed By: #### 1 [id number] #### [facility] (DEFAULT) [address] [place] [address] eGFR, CKD-EPI, Male > Normal >=60 [facility] Comment on above: Result Comment: Repo rted eGFR is based on the CKD-EPI 2020 equation using creatinine, age, and sex. Performed By: #### 1 [id number] #### [facility] (DEFAULT) [address] [place] [address] Glucose [Mass/Vol] 103 mg/dL High 70-99 [facility] Comment on above: Performed By: #### 1 [id number] #### [facility] (DEFAULT) [address] [place] [address] Osmolality [Osmolality] 292 mosm/kg Normal 278-305 [facility] Comment on above: Performed By: #### 1 [id number] #### [facility] (DEFAULT) [address] [place] [address] Potassium [Moles/Vol] 3.7 mmol/L Normal 3.5-5.0 [facility] Comment on above: Performed By: #### 1 [id number] #### [facility] (DEFAULT) [address] [place] [address] Sodium [Moles/Vol] 139 mmol/L Normal 135-145 [facility] Comment on above: Performed By: #### 1 [id number] #### [facility] (DEFAULT) [address] [place] [address] Urea nitrogen [Mass/Vol] 17 mg/dL Normal 7-25 [facility] Comment on above: Performed By: #### 1 [id number] #### [facility] (DEFAULT) [address] [place] [address] Urea nitrogen/Creatinine [Mass ratio] 23 mg/mg Normal [facility] Comment on above: Performed By: #### 1 [id number] #### [facility] (DEFAULT) [address] [place] [address] Anion gap [Moles/Vol] 12 mmol/L 7 - 17 mmol/L [facility] Chloride [Moles/Vol] 106 mmol/L 98 - 10 8 mmol/L [facility] CO2 [Moles/Vol] 25 mmol/L 21 - 31 mmol/L [facility] Creatinine [Mass/Vol] 0.73 mg/dL 0.70 - 1.30 mg/dL [facility] eGFR, CKD-EPI, Male - PINF [facility] Comment on above: Reported eGFR is bas ed on the CKD-EPI 2020 equation using creatinine, age, and sex. Glucose [Mass/Vol] 103 mg/dL High 70 - 99 mg/dL [facility] Interpretation and review of laboratory results Abnormal [facility] Osmolality Calc [Osmolality] 292 [facility] Potassium [Moles/Vol] 3.7 mmol/L 3.5 - 5.0 mmol/L [facility] Sodium [Moles/Vol] 139 mmol/L 135 - 145 mmol/L [facility] Urea nitrogen [Mass/Vol] 17 mg/dL 7 - 25 mg/dL [facility] Urea nitrogen/Creatinine [Mass ratio] 23 mg/mg [facility] MAGNESIUMon 07-21-2023 Magnesium [Mass/Vol] 1.9 mg/dL Normal 1.6-2.6 [facility] Comment on above: Performed By: #### 1 [id number] #### [facility] (DEFAULT) [address] [place] [address] Interpretation and review of laboratory results Normal [facility] Magnesium [Mass/Vol] 1.9 mg/dL 1.6 - 2 .6 mg/dL [facility] No Panel Informationon 07-20 [facility] Portable XR Chest Viewson IMPRESSION: No acute cardiopulmonary disease OLOGY EXAM: XR CHEST 1 VIE W PORTABLE, 07/21/2023 15:14 PM COMPARISON: None CLINICAL INDICATIONS: CP RELEVANT CLINICAL HISTORY: FINDINGS: (Adequate technique) Implanted Devices: None Thorax: No acute findings in the chest. The lungs are grossly clear with no focal airspace disease or overt pulmonary edema. No definite pleural effusion or pneumothorax. Heart size is within normal limits. Chest wall structures are unremarkable. RADIOLOGY Justen Teague MD - 07/21/2023 EXAM: XR CHEST 1 VIEW PORTABLE, 07/21/2023 15:14 PM COMPARISON: None CLINICAL INDICATIONS: CP RELEVANT CLINICAL HISTORY: FINDINGS: (Adequate technique) Implanted Devices: None Thorax: No acute findings in the chest. The lungs are grossly clear with no focal airspace disease or overt pulmonary edema. No definite pleural effusion or pneumothorax. Heart size is within normal limits. Chest wall structures are unremarkable. IMPRESSION IMPRESSION: No acute cardiopulmonary disease [facility] Radiology Study observation (narrative) [facility] Portable XR Chest ViewsOrder ed By: Justen Teague on 07-21-2023 [facility] Work Phone: TROPONIN 1 HOURon 07-21-2023 1 Hour hs-Troponin <3 Normal <53 [facility] Comment on above: Order Comment: Acute Coronary Syndrome (ACS): Initial Evaluation and Management:[email or web address] [email or web address] Performed By: #### H [facility] #### [facility] (DEFAULT) [address] [place] [address] Interpretation and review of laboratory results Normal [facility] Troponin I.cardiac High sensitivity method [Mass/Vol] ng/L NINF - 53 ng/L [facility] TROPONIN I INITIALon 024 hs-Troponin I <3 Normal <53 [facility] Comment on above: Order Comment: Acute Coronary Syndrome (ACS): Initial Evaluation and Management: [email or web address] [email or web address] Performed By: #### 1 [id number] #### [facility] (DEFAULT) [address] [place] [address] Interpretation and review of laboratory results Normal [facility] Troponin I.cardiac High sensitivity method [Mass/Vol] ng/L NINF - 53 ng/L [facility] XR CHEST 1 VIEW PORTABLEon 0 07-21-2023 XR CHEST 1 VIEW PORTABLE EXAM: XR CHEST 1 VIEW PORTABLE, 07/21/2023 15:14 PM COMPARISON: None CLINICAL INDICATIONS: CP RELEVANT CLINICAL HISTORY: FINDINGS: (Adequate technique) Implanted Devices: None Thorax: No acute findings in the chest. The lungs are grossly clear with no focal airspace disease or overt pulmonary edema. No definite pleural effusion or pneumothorax. Heart size is within normal limits. Chest wall structures are unremarkable. IMPRESSION: No acute cardiopulmonary disease Normal [facility] XR WRIST LEFT 3+ VIEWSon XR WRIST LEFT 3+ VIEWS EXAM: XR WRIST LE FT 3+ VIEWS, 07/21/2023 15:20 PM COMPARISON: No prior studies available for comparison. CLINICAL INDICATIONS: L wrist pain FINDINGS: 4 images obtained. Soft Tissue: There is no significant soft tissue swelling. Bone: No acute osseous abnormality. Hypertrophic osseous changes of the distal portion of the scaphoid with adjacent corticated ossicle suggestive of prior trauma. Carpal Joints: Carpal alignment is anatomic with mild widening of the scapholunate interval. There are cystic changes in the lateral aspect of the lunate as well as osteophytes at the scapholunate articulation. There is narrowing of the radiocarpal joint space, particularly the scaphoid facet, with associated subchondral sclerosis. Ulnar length: There is ulnar neutral variance. DRUJ: The distal radioulnar joint is anatomically aligned. 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 No acute abnormality. 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 No acute abnormality. OLOGY EXAM: XR WRIST LEFT 3+ VIEWS, 07/21/2023 15:20 PM COMPARISON: No prior studies available for comparison. CLINICAL INDICATIONS: L wrist pain FINDINGS: 4 images obtained. Soft Tissue: There is no significant soft tissue swelling. Bone: No acute osseous abnormality. Hypertrophic osseous changes of the distal portion of the scaphoid with adjacent corticated ossicle suggestive of prior trauma. Carpal Joints: Carpal alignment is anatomic with mild widening of the scapholunate interval. There are cystic changes in the lateral aspect of the lunate as well as osteophytes at the scapholunate articulation. There is narrowing of the radiocarpal joint space, particularly the scaphoid facet, with associated subchondral sclerosis. Ulnar length: There is ulnar neutral variance. DRUJ: The distal radioulnar joint is anatomically aligned. RADIOLOGY Triston Langford MD - 07/21/2023 EXAM: XR WRIST LEFT 3+ VIEWS, 07/21/2023 15:20 PM COMPARISON: No prior studies available for comparison. CLINICAL INDICATIONS: L wrist pain FINDINGS: 4 images obtained. Soft Tissue: There is no significant soft tissue swelling. Bone: No acute osseous abnormality. Hypertrophic osseous changes of the distal portion of the scaphoid with adjacent corticated ossicle suggestive of prior trauma. Carpal Joints: Carpal alignment is anatomic with mild widening of the scapholunate interval. There are cystic changes in the lateral aspect of the lunate as well as osteophytes at the scapholunate articulation. There is narrowing of the radiocarpal joint space, particularly the scaphoid facet, with associated subchondral sclerosis. Ulnar length: There is ulnar neutral variance. DRUJ: The distal radioulnar joint is anatomically aligned. 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 No acute abnormality. [facility] Radiology Study observation (narrative) [facility] XR Wrist - left 3 ViewsOrder ed By: Triston Langford on 07-21-2023 [facility] Work Phone: Absolute lymphocyte countOrd ered By: Steve Hebert on 07-17-2023 Lymphocytes Auto (Unsp spec) [#/Vol] 1.84 10*3/uL 0.83-4.51 [facility] Alcohol, Blood (Medical)-Ser umon 07-17-2023 SERUM ETOH < 3.0 Normal [facility] Comment on above: Result Comment: The serum:whole blood ethanol ratio is approximately 1.14 and varies slightly with hematocrit. Medical Alcohol reference interval and critical value in non-tolerant individuals; 50 - 100 Impairment 100 Intoxication 100 - 250 Severe Poisoning 250 - 400 Deep/possible fatal coma Performed By: #### L 500.4050, L100.0100, L501.9100 ####[facility] [address] [place], [address] Automated lymphocyte count a s percentage of total leukocytesOrdered By: Steve Hebert on 07-17-2023 Lymphocytes/100 WBC Auto (Unsp spec) 21.6 % 19-41 [facility] Basophil percentageOrdered B y: Steve Hebert on 07-17-2023 Basophil percentage 0-5 SEEN /hpf 0-5 [facility] Basophils/100 WBC (Bld) 0.1 % 0-1 [facility] Bilirubin [Mass/Vol] 0.50 mg/dL 0.20-1.00 [facility] Comment on above: For patients on eltr ombopag therapy, use of Dimension [place] TBIL is not recommended. Chloride [Moles/Vol] 105 mmol/L 98-107 [facility] Eosinophils/100 WBC (Bld) 0.0 % 0-5 [facility] Glucose [Mass/Vol] 101 mg/dL 74-106 [facility] Comment on above: Fasting Glucose resu lt from 100 to 125 mg/dL suggests IMPAIRED HOMEOSTASIS per A.D.A. criteria. Hemoglobin (Bld) [Mass/Vol] 14.0 g/dL 13.0-16.5 [facility] Monocytes/100 WBC (Bld) 8.1 % 0-10 [facility] Neutrophils (Bld) [#/Vol] 5.9 10*3/uL 2.0-7.7 [facility] Neutrophils/100 WBC (Bld) 69.8 % 47-70 [facility] Potassium [Moles/Vol] 4.1 mmol/L 3.5-5.1 [facility] Protein [Mass/Vol] 7.2 g/dL 6.4-8.2 [facility] Sodium [Moles/Vol] 140 mmol/L 136-145 [facility] WBC (Bld) [#/Vol] 8.5 10*3/uL 4.4-11.0 [facility] Bedside Glucoseon 07-17-2023 FINGERSTICK GLU 107 mg/dL High 74-106 [facility] Comment on above: Result Comment: DAINA GEMENT OF PATIENT CARE PER NURSING PROTOCOL Performed By: #### L 501.080 #### [facility] [address] [place], [address] Bilirubin Test strip Ql (U)O rdered By: Steve Hebert on 07-17-2023 Bilirubin Ql (U) Negative Negative [facility] Brain/Head without Contrasto n 07-17-2023 Brain/Head without Contrast [facility] Services [address] [place] [address] Brain/Head without Contrast MR#: [id number] Acct: [id number] Name: CRUSHERFRANSISCO Rep #: [id number] : 1975 M 48 From: Juliano Chavez MD PCP: [facility] Status: PRE ER Study: Brain/Head without Contrast Date of Exam: 06/22 10/14 Exam# [id number] Ordering [place]: [place] [id number] EXAM: CT HEAD WITHOUT INTRAVENOUS CONTRAST CLINICAL INDICATION: mental status change TECHNIQUE: Multiple axial images were obtained of the head without intravenous contrast. This CT exam was performed using one or more of the following dose reduction techniques: automated exposure control, adjustment of the mA and/or kV according to patient size, and/or use of iterative reconstruction technique. COMPARISON: No relevant prior studies available. FINDINGS: BRAIN AND EXTRA-AXIAL SPACES: Normal. Normal brain attenuation. No intra- or extra-axial hemorrhage. No acute infarct. No intracranial mass or mass effect. There is preservation of the monreal/white matter interface. Posterior fossa structures are unremarkable. Ventricles are appropriate for age. No hydrocephalus. Basal cisterns are patent. BONES/JOINTS: Normal calvarium. SINUSES: No acute sinusitis. MASTOID AIR CELLS: Normal. Clear. CT/Brain/Head without Contrast IMPRESSION: Normal CT brain without intravenous contrast. Electronically Signed: Juliano Chavez MD at 11:51 EDT , CC: Dr. Steve Hebert DO; [facility] Pharmacy Assistant: Signed Normal [facility] CBC W/Diff, Automatedon 06-22 Absolute Lymph 1.84 X10 3/uL Normal 0.83-4.51 [facility] Comment on above: Performed By: #### L 500.4050, L100.0100, L501.9100 #### [facility] [address] [place], [address] Absolute Neut 5.9 X10 3/uL Normal 2.0-7.7 [facility] Comment on above: Performed By: #### L 500.4050, L100.0100, L501.9100 #### [facility] [address] [place], [address] Basophils/100 WBC (Bld) 0.1 % Normal 0-1 [facility] Comment on above: Performed By: #### L 500.4050, L100.0100, L501.9100 #### [facility] [address] [place], [address] Eosinophils/100 WBC (Bld) 0.0 % Normal 0-5 [facility] Comment on above: Performed By: #### L 500.4050, L100.0100, L501.9100 #### [facility] [address] [place], [address] Erythrocyte distribution width (RBC) [Ratio] 12.5 % Normal 11.6-14.6 [facility] Comment on above: Performed By: #### L 500.4050, L100.0100, L501.9100 #### [facility] [address] [place], [address] Hematocrit (Bld) [Volume fraction] 41.9 % Normal 40-54 [facility] Comment on above: Performed By: #### L 500.4050, L100.0100, L501.9100 #### [facility] [address] [place], [address] Hemoglobin (Bld) [Mass/Vol] 14.0 g/dL Normal 13.0-16.5 [facility] Comment on above: Performed By: #### L 500.4050, L100.0100, L501.9100 #### [facility] [address] [place] [place], [address] IG% 0.400 Normal 0.0-0.9 [facility] Comment on above: Result Comment: IG% - Immature Granulocytes (promyelocytes, myelocytes and metamyelocytes) > 1% indicates that a LEFT SHIFT is Present. Performed By: #### L 500.4050, L100.0100, L501.9100 #### [facility] [address] [place], [address] Lymphocytes/100 WBC (Bld) 21.6 % Normal 19-41 [facility] Comment on above: Performed By: #### L 500.4050, L100.0100, L501.9100 #### [facility] [address] [place], [address] MCH (RBC) [Entitic mass] 29.2 pg Normal 27.0-32.0 [facility] Comment on above: Performed By: #### L 500.4050, L100.0100, L501.9100 #### [facility] [address] [place], [address] MCHC (RBC) [Mass/Vol] 33.4 g/dL Normal 32-36 [facility] Comment on above: Performed By: #### L 500.4050, L100.0100, L501.9100 #### [facility] [address] [place], [address] MCV (RBC) [Entitic vol] 87.3 fL Normal 80-94 [facility] Comment on above: Performed By: #### L 500.4050, L100.0100, L501.9100 #### [facility] [address] [place], [address] Monocytes/100 WBC (Bld) 8.1 % Normal 0-10 [facility] Comment on above: Performed By: #### L 500.4050, L100.0100, L501.9100 #### [facility] [address] [place], [address] Neutrophils/100 WBC (Bld) 69.8 % Normal 47-70 [facility] Comment on above: Performed By: #### L 500.4050, L100.0100, L501.9100 #### [facility] [address] [place], [address] Nucleated RBC (Bld) [#/Vol] 0 10*3/uL Normal 0-5 [facility] Comment on above: Performed By: #### L 500.4050, L100.0100, L501.9100 #### [facility] [address] [place], [address] Platelet mean volume (Bld) [Entitic vol] 9.7 fL Normal 6.2-12.0 [facility] Comment on above: Performed By: #### L 500.4050, L100.0100, L501.9100 #### [facility] [address] [place], [address] Platelets (Bld) [#/Vol] 220 10*3/uL Normal 150-450 [facility] Comment on above: Performed By: #### L 500.4050, L100.0100, L501.9100 #### [facility] [address] [place], [address] RBC (Bld) [#/Vol] 4.80 10*6/uL Normal 4.6-6.2 [facility] Comment on above: Performed By: #### L 500.4050, L100.0100, L501.9100 #### [facility] [address] [place], [address] RDW SD 39.8 fl Normal 35.1-43.9 [facility] Comment on above: Performed By: #### L 500.4050, L100.0100, L501.9100 #### [facility] [address] [place], [address] WBC (Bld) [#/Vol] 8.5 10*3/uL Normal 4.4-11.0 [facility] Comment on above: Performed By: #### L 500.4050, L100.0100, L501.9100 #### [facility] [address] [place], [address] Comprehensive Metabolic Prof ilon 07-17-2023 Albumin [Mass/Vol] 3.8 g/dL Normal 3.2-5.0 [facility] Comment on above: Performed By: #### L 500.4050, L100.0100, L501.9100 ####[facility] [address] [place], [address] Albumin/Globulin [Mass ratio] 1.1 {ratio} Normal 0.9-2.4 [facility] Comment on above: Performed By: #### L 500.4050, L100.0100, L501.9100 ####[facility] [address] [place], [address] ALK P 88 U/L Normal 45-117 [facility] Comment on above: Performed By: #### L 500.4050, L100.0100, L501.9100 ####[facility] [address] [place], [address] ALT [Catalytic activity/Vol] 38 U/L Normal 16-61 [facility] Comment on above: Performed By: #### L 500.4050, L100.0100, L501.9100 ####[facility] [address] [place], [address] AST [Catalytic activity/Vol] 17 U/L Normal 15-37 [facility] Comment on above: Performed By: #### L 500.4050, L100.0100, L501.9100 ####[facility] [address] [place], [address] Bilirubin [Mass/Vol] 0.50 mg/dL Normal 0.20-1.00 [facility] Comment on above: Result Comment: For patients on eltrombopag therapy, use of Dimension [place] TBIL is not recommended. Performed By: #### L 500.4050, L100.0100, L501.9100 ####[facility] [address] [place], [address] BUN/CRE 14.4 RATIO Normal 10-20 [facility] Comment on above: Performed By: #### L 500.4050, L100.0100, L501.9100 ####[facility] [address] [place], [address] CA,Total 9.5 mg/dL Normal 8.5-10.1 [facility] Comment on above: Performed By: #### L 500.4050, L100.0100, L501.9100 ####[facility] [address] [place], [address] Chloride [Moles/Vol] 105 mmol/L Normal 98-107 [facility] Comment on above: Performed By: #### L 500.4050, L100.0100, L501.9100 ####[facility] [address] [place], [address] CO2 [Moles/Vol] 27.0 mmol/L Normal 21.0-32.0 [facility] Comment on above: Performed By: #### L 500.4050, L100.0100, L501.9100 ####[facility] [address] [place], [address] Creatinine [Mass/Vol] 0.76 mg/dL Normal 0.70-1.30 [facility] Comment on above: Result Comment: The validity of the calculated GFR GFRAA in patients over 70 years has not been determined. Clinical correlation is essential. Performed By: #### L 500.4050, L100.0100, L501.9100 ####[facility] [address] [place], [address] ECRCL 164.62 ml/min Normal [facility] Comment on above: Performed By: #### L 500.4050, L100.0100, L501.9100 ####[facility] [address] [place], [address] EST GFR - AA 140 mL/min Normal >60 [facility] Comment on above: Result Comment: Afri can Scottish GFR Calc Performed By: #### L 500.4050, L100.0100, L501.9100 ####[facility] [address] [place], [address] GAP 8 Normal 5-15 [facility] Comment on above: Performed By: #### L 500.4050, L100.0100, L501.9100 ####[facility] [address] [place], [address] GFR/1.73 sq M.predicted among non-blacks MDRD (S/P/Bld) [Vol rate/Area] 116 mL/min/{1.73_m2} Normal >60 [facility] Comment on above: Result Comment: Non- GFR Calc Performed By: #### L 500.4050, L100.0100, L501.9100 ####[facility] [address] [place], [address] Globulin (S) [Mass/Vol] 3.4 g/dL Normal 2.2-4.2 [facility] Comment on above: Performed By: #### L 500.4050, L100.0100, L501.9100 ####[facility] [address] [place], [address] Glucose [Mass/Vol] 101 mg/dL Normal 74-106 [facility] Comment on above: Result Comment: Fast ing Glucose result from 100 to 125 mg/dL suggests IMPAIRED HOMEOSTASIS per A.D.A. criteria. Performed By: #### L 500.4050, L100.0100, L501.9100 ####[facility] [address] [place], [address] Potassium [Moles/Vol] 4.1 mmol/L Normal 3.5-5.1 [facility] Comment on above: Performed By: #### L 500.4050, L100.0100, L501.9100 ####[facility] [address] [place], [address] Sodium [Moles/Vol] 140 mmol/L Normal 136-145 [facility] Comment on above: Performed By: #### L 500.4050, L100.0100, L501.9100 ####[facility] [address] [place], [address] T PROT 7.2 g/dL Normal 6.4-8.2 [facility] Comment on above: Performed By: #### L 500.4050, L100.0100, L501.9100 ####[facility] [address] [place], [address] Urea nitrogen [Mass/Vol] 11 mg/dL Normal 7-18 [facility] Comment on above: Performed By: #### L 500.4050, L100.0100, L501.9100 ####[facility] [address] [place], [address] Determination of erythrocyte mean corpuscular volume (MCV)Ordered By: Steve Hebert on 07-17-2023 MCV (RBC) [Entitic vol] 87.3 fL 80-94 [facility] Emergency Department Summary on 07-17-2023 Emergency Department Summary [facility] Medical Records Department [address] [place] [address] Emergency Department Summary 07/17/23 MR#: [id number] Acct: [id number] Name: CRUSHERFRANSISCO Rep #: [id number] : 1975 48 From: Steve Hebert DO PCP: [facility] Status:REG ER Location: ED ADDENDUM by Dr. Grady Glez DO on 07/17/23 at 2218 Patient was accepted to [facility] at 2215. [place] slip and transfer form were filled out. Patient will be transferred there in the morning. 07/17/232217 Cosigner Signature (if applicable): cc: [facility] * Signed ADDENDUM by Dr. Grady Glez DO on 07/17/23 at 2207 Care of the patient was turned over to [place] pending psychiatric placement. Patient continued to be agitated and combative. Patient was given a repeat dose of Haldol 5 mg and Versed 2 mg. Patient was able to calm down after this. Currently, patient is resting comfortably and sleeping. Psychiatric placement is still pending. Care of the patient will be turned over the oncoming physician pending psychiatric placement. 07/17/232206 Cosigner Signature (if applicable): cc: [facility] * Signed HPI History of Present Illness Chief Complaint: Alt LOC Detail of Chief Complaint: Mental status change Informant: patient and police/loan service officer Narrative Narrative: Patient brought to the emergency department via EMS and with police escort. Patient apparently was arrested last evening and was in [facility] from 6 PM until this morning. Apparently had some bizarre behavior at the time and had to be escorted out of [facility]. He apparently then came back to [facility] and attempted to interiano one of the officers. Patient has history of drug abuse. He admits occasional alcohol use. He denies feeling suicidal or homicidal. He denies auditory or visual hallucinations. Somewhat of a poor historian and has flight of ideas. Patient apparently was arrested for disorderly conduct and had a warrant out for his arrest. Nursing staff was able to contact patient's mother and apparently patient has a bed available at a psychiatric facility that he was supposed to go to today. Apparently has history of schizophrenia. [facility] Medical History Amphetamine use disorder, moderate, dependence Benzodiazepine use and dependence Drug abuse Hepatitis B Hepatitis C Opiate abuse, continuous Opiate abuse, continuous Polysubstance dependence including opioid type drug, continuous use Home Medications buprenorphine 8 mg-naloxone 2 mg sublingual film 2 film sublingual DAILY opiod dependence 05/27/23 [History Last Taken Unknown] Allergy/AdvReac Type Severity Reaction Status Date / Time No Known Allergies Allergy Verified 05/27/23 08:24 Surgical History Hx of total knee replacement S/P left knee surgery Social History Smoking Status: Current every day smoker tobacco type: cigarettes EXAM Physical Exam Const Vital Signs: 07/17/23 10:02 07/17/23 11:02 Temperature 97.8 F 98.1 F Temperature Source Temporal Temporal Pulse Rate 96 92 Respiratory Rate 18 17 Blood Pressure 137/78 H 167/101 H Blood Pressure Mean 97 123 Pulse Ox 97 100 Oxygen Delivery Method Room Air Room Air Positive well nourished and well developed General Appearance ED: well developed and NAD HEENT Reports TM's clear and moist mucous membranes normocephalic and atraumatic; Negative for trauma or tenderness Tympanic Membrane ED: Yes TM's clear Eyes PERRL and EOMs intact bilaterally General Eye ED: Negative for pale conjunctiva or scleral icterus Neck no lymphadenopathy, supple and no JVD General: Negative for tenderness Chest Wall inspection of chest normal and palpation of chest normal Chest: Negative for tenderness Resp normal respiratory effort and clear to auscultation bilaterally Effort and Inspection: Negative for respiratory distress or pain with movement Auscultation: Negative for rhonchi, wheezes or diminished lung sounds Cardio regular rate, regular rhythm, S1 normal heart sound, S2 normal heart sound and no murmurs Peripheral Pulses: pulses 2+ throughout GI normal to inspection, nondistended, normoactive bowel sounds, soft to palpation, non-tender, non- distended and no masses Back/Spine no CVA tenderness and no thoracic nor lumbar tenderness Extremity normal to inspection General Extremety ED: Negative for edema General Extremity: Negative for edema Neuro oriented x3, CN's II-XII intact bilaterally, no sensory deficits noted and gait normal Neuro Narrative: Mental status change with bizarre behavior Sensorium / Orientation: (more content not included)... Normal [facility] Erythrocyte distribution wid th ratioOrdered By: Steve Hebert on 07-17-2023 Erythrocyte distribution width (RBC) [Ratio] 12.5 % 11.6-14.6 [facility] Erythrocyte distribution wid th standard deviationOrdered By: Steve Hebert on 07-17-2023 Erythrocyte distribution width (RBC) [Entitic vol] 39.8 fL 35.1-43.9 [facility] Hematocrit Auto (Bld) [Volum e fraction]Ordered By: Steve Hebert on 07-17-2023 Hematocrit (Bld) [Volume fraction] 41.9 % 40-54 [facility] Immature granulocytes/100 WB C Auto (Bld)Ordered By: Steve Hebert on 07-17-2023 Immature granulocytes/100 WBC (Bld) 0.400 % 0.0-0.9 [facility] Comment on above: IG% - Immature Granu locytes (promyelocytes, myelocytes and metamyelocytes) > 1% indicates that a LEFT SHIFT is Present. Ketones Test strip Ql (U)Ord ered By: Steve Hebert on 07-17-2023 Ketones Ql (U) Negative Negative [facility] - Chemistry and C hemistry - challengeOrdered By: Steve Hebert on 07-17-2023 Albumin/Globulin [Mass ratio] 1.1 {ratio} 0.9-2.4 [facility] ALP [Catalytic activity/Vol] 88 U/L 45-117 [facility] ALT [Catalytic activity/Vol] 38 U/L 16-61 [facility] CO2 [Moles/Vol] 27.0 mmol/L 21.0-32.0 [facility] Globulin (S) [Mass/Vol] 3.4 g/dL 2.2-4.2 [facility] Urea nitrogen/Creatinine [Mass ratio] 14.4 mg/mg 10-20 [facility] - Drug toxicology Ordered By: Steve Hebert on 07-17-2023 Amphetamines Ql (U) Negative <1000 ng/mL [facility] Benzodiazepines Ql (U) Negative < 200 ng/mL [facility] Cannabinoids Screen Ql (U) Negative < 50 ng/mL [facility] Cocaine Ql (U) Negative < 300 ng/mL [facility] Opiates Ql (U) Negative < 300 ng/mL [facility] - Hematology and Cell countsOrdered By: Steve Hebert on 07-17-2023 MCH (RBC) [Entitic mass] 29.2 pg 27.0-32.0 [facility] MCHC (RBC) [Mass/Vol] 33.4 g/dL 32-36 [facility] Nucleated RBC/100 WBC (Bld) [Ratio] 0 % 0-5 [facility] Platelet mean volume (Bld) [Entitic vol] 9.7 fL 6.2-12.0 [facility] Platelets (Bld) [#/Vol] 220 10*3/uL 150-450 [facility] Mucus LM Ql (Urine sed)Order ed By: Steve Hebert on 07-17-2023 Mucus Ql (Urine sed) 0 SEEN /hpf [facility] Nitrite Test strip Ql (U)Ord ered By: Steve Hebert on 07-17-2023 Nitrite Ql (U) Negative Negative [facility] No Panel InformationOrdered By: Steve Hebert on 07-17-2023 MDMA (Ecstasy) Screen Negative < 500 ng/mL [facility] Urine Barbiturates Screen Negative < 200 ng/mL [facility] Urine Drug Screen Comment [facility] Comment on above: CONFIRMATORY TESTING FOR ALL POSITIVE URINE DRUG SCREENRESULTS WILL ONLY BE SENT OUT UPON PHYSICIAN ORDER. VISTA Urine Drug Screen methods provide only preliminaryanalytical test results. A more specific alternate chemicalmethod must be used in order to obtain a confirmedanalytical result. Gas chromatography/mass spectrometery(GC/MS) is the preferred confirmatory method. Clinicalconsideration and professional judgement should be appliedto any drug of abuse test result, particularly whenpreliminary positive results are used. URINE TCA TESTING MUST BE ORDERED SEPARATELY. USE TESTMNEMONIC: [facility] Urine Methadone Screen Negative < 300 ng/mL [facility] Urine RBC 0-5 SEEN /hpf 0-5 [facility] Estimated Creatinine Clearance Calc 164.62 ml/min [facility] Estimated GFR (MDRD) Amer 140 mL/min >60 [facility] Comment on above: GFR Calc Estimated GFR (MDRD) Non-Af Amer 116 mL/min >60 [facility] Comment on above: Non- GFR Calc Ethyl Alcohol Level < 3.0 mg/dL [facility] Comment on above: The serum:whole bloo d ethanol ratio is approximately 1.14and varies slightly with hematocrit. Medical Alcohol reference interval and critical value innon-tolerant individuals; 50 - 100 Impairment 100 Intoxication 100 - 250 Severe Poisoning 250 - 400 Deep/possible fatal coma Protein Test strip Ql (U)Ord ered By: Steve Hebert on 07-17-2023 Protein Ql (U) 15 mg/dl Negative [facility] RBC Auto (Bld) [#/Vol]Ordere d By: Steve Hebert on 07-17-2023 RBC (Bld) [#/Vol] 4.80 10*6/uL 4.6-6.2 [facility] Serum or plasma calcium david urement (mass/volume)Ordered By: Steve Hebert on 07-17-2023 Calcium [Mass/Vol] 9.5 mg/dL 8.5-10.1 [facility] Serum or plasma creatinine m easurement (mass/volume)Ordered By: Steve Hebert on 07-17-2023 Creatinine [Mass/Vol] 0.76 mg/dL 0.70-1.30 [facility] Comment on above: The validity of the calculated GFR & GFRAA in patients over 70 years has not been determined. Clinical correlation is essential. Serum or plasma urea nitroge n measurement (mass/volume)Ordered By: Steve Hebert on 07-17-2023 Urea nitrogen [Mass/Vol] 11 mg/dL 7-18 [facility] Squamous epithelial cells de tection in urine sediment by light microscopyOrdered By: Steve Hebert on 07-17-2023 Epithelial cells.squamous LM Ql (Urine sed) 0 SEEN /hpf 0-5 [facility] Thin prep Papanicolaou smear with manual screeningOrdered By: Steve Hebert on 07-17-2023 Thin prep Papanicolaou smear with manual screening 3.8 g/dL 3.2-5.0 [facility] Thin prep Papanicolaou smear with manual screening 17 U/L 15-37 [facility] Thin prep Papanicolaou smear with manual screening 8 5-15 [facility] Thin prep Papanicolaou smear with manual screening 107 mg/dL 74-106 [facility] Comment on above: MANAGEMENT OF PATIEN T CARE PER NURSING PROTOCOL Urinalysis, Completeon 07-16 RBC 0-5 SEEN Normal 0-5 [facility] Comment on above: Order Comment: CLEAN CATCH Performed By: #### L 400.0001, L505.5000 #### [facility] [address] [place], [address] WBC 0-5 SEEN Normal 0-5 [facility] Comment on above: Order Comment: CLEAN CATCH Performed By: #### L 400.0001, L505.5000 #### [facility] [address] [place], [address] BACTERIA 0 SEEN Normal None Seen [facility] Comment on above: Order Comment: CLEAN CATCH Performed By: #### L 400.0001, L505.5000 #### [facility] [address] [place], [address] EPI,SQUAMOUS 0 SEEN Normal 0-5 [facility] Comment on above: Order Comment: CLEAN CATCH Performed By: #### L 400.0001, L505.5000 #### [facility] [address] [place], [address] Mucus Ql (Urine sed) 0 SEEN Normal [facility] Comment on above: Order Comment: CLEAN CATCH Performed By: #### L 400.0001, L505.5000 #### [facility] [address] [place], [address] Urine Drug Screen (VISTA)on 07-17-2023 AMPHETAMINES Negative Normal <1000 ng/mL [facility] Comment on above: Performed By: #### L 400.0001, L505.5000 #### [facility] [address] [place], [address] BARBITIURATES Negative Normal < 200 ng/mL [facility] Comment on above: Performed By: #### L 400.0001, L505.5000 #### [facility] [address] [place], [address] BENZODIAZIPINE Negative Normal < 200 ng/mL [facility] Comment on above: Performed By: #### L 400.0001, L505.5000 #### [facility] [address] [place], [address] COCAINE Negative Normal < 300 ng/mL [facility] Comment on above: Performed By: #### L 400.0001, L505.5000 #### [facility] [address] [place], [address] ECSTACY Negative Normal < 500 ng/mL [facility] Comment on above: Performed By: #### L 400.0001, L505.5000 #### [facility] [address] [place], [address] METHADONE Negative Normal < 300 ng/mL [facility] Comment on above: Performed By: #### L 400.0001, L505.5000 #### [facility] [address] [place], [address] OPIATES Negative Normal < 300 ng/mL [facility] Comment on above: Performed By: #### L 400.0001, L505.5000 #### [facility] [address] [place], [address] PCP Negative Normal < 25 ng/mL [facility] Comment on above: Performed By: #### L 400.0001, L505.5000 #### [facility] [address] [place], [address] THC Negative Normal < 50 ng/mL [facility] Comment on above: Performed By: #### L 400.0001, L505.5000 #### [facility] [address] [place], [address] VISTA UDS PH 6 Normal [facility] Comment on above: Performed By: #### L 400.0001, L505.5000 #### [facility] [place], [address] Urine blood detectionOrdered By: Steve Hebert on 07-17-2023 RBC Ql (U) 10 /ul Negative [facility] Urine clarityOrdered By: Marii Hebert on 07-17-2023 Clarity (U) Clear Clear [facility] Urine color determinationOrd ered By: Steve Hebert on 07-17-2023 Color (U) Yellow Yellow [facility] Urine glucose detectionOrder ed By: Steve Hebert on 07-17-2023 Glucose Ql (U) Normal mg/dl Normal [facility] Urine leukocyte esterase det ection by dipstickOrdered By: Steve Hebert on 07-17-2023 Leukocyte esterase Test strip Ql (U) 25 /ul Negative [facility] Urine pHOrdered By: Steve Vickers gur on 07-17-2023 pH (U) 6.5 [pH] 5.0 - 8.0 [facility] Urine phencyclidine (PCP) de tectionOrdered By: Steve Hebert on 07-17-2023 Phencyclidine Ql (U) Negative < 25 ng/mL [facility] Urine sediment bacteria coun t by microscopy (number/high power field)Ordered By: Steve Hebert on 07-17-2023 Bacteria LM.HPF (Urine sed) [#/Area] 0 /[HPF] None Seen [facility] Urine specific gravity measu rementOrdered By: Steve Hebert on 07-17-2023 Specific gravity (U) [Rel density] 1.020 1.002-1.030 [facility] Urine urobilinogen measureme ntOrdered By: Steve Hebert on 07-17-2023 Urobilinogen Ql (U) Normal mg/dl Normal [facility] Behavioral Health Treatment Planon 07-16-2023 Behavioral Health Treatment Plan Compliant with medications, last prn for agitation was given on 07/15/23. Awaiting discharge to [facility]. .es Normal [facility] CARECOORDon 07-16-2023 [facility] [place] worker helper met wi th patient this morning. He is being discharged to [facility] treatment program. He will be picked up approximately 11 AM for transport to the residential treatment program. He denies being suicidal and reports to be in good spirits. He will follow-up with mental health services through the program. Cirilo gonsalves will be providing transportation. [facility] DYLAN Spoke with Cirilo perez and transportation is scheduled for 11am today. Printed scripts will be given. Will inform treatment team. [facility] GROUPNOTEon 07-16-2023 GROUPNOTE Department: [facility] Group Topic: Other Group Date: 07/16/2023 Start Time: 899 End Time: 919 Facilitators: Jessica Cowan Number of Participants: 2 Group Name: Setting Goals Treatment Modality: Activity Therapy Purpose: enhance coping skills and reinforce self-care Summary: Patient will focus on setting daily goals identifying positive steps to wellness resources and steps to complete. Discussion benefits of receiving support and encouragement. Name: Fransisco Cantor Date of : 1975 MR: [id number] Appearance: Appropriately dressed and groomed Affect: Appropriate Behavior: Pleasant Alertness: Alert Speech: Appropriate Level/Quality of Participation: active Interactions with others: supportive Interventions utilized were Building rapport and engagement and Empathic listening Patient's Response to Intervention: Patient meet expectations of group setting a goal to reinforce self care. Will continue to offer groups and encourage participation face mask worn at all times during patient interations. Patients Problems: Patient Active Problem List Diagnosis Arthritis of both knees Primary osteoarthritis of both knees Abnormal liver function tests Manic behavior (HCC) Normal [facility] IDNon 07-16-2023 IDN Problem: Sensory Perceptual Alteration as Evidenced by Goal: Cooperates with admission process Outcome: Progressing Goal: Patient/Family participate in treatment and discharge plans Outcome: Progressing Goal: Free from restraint events Outcome: Progressing Problem: Potential for Harm to Self or Others Goal: Notifies staff when experiencing harmful thoughts toward self/others Outcome: Progressing Goal: Denies harm toward self or others Outcome: Progressing Normal [facility] IDN Problem: Sensory Perceptual Alteration as Evidenced by Goal: Cooperates with admission process Outcome: Progressing Goal: Patient/Family participate in treatment and discharge plans Outcome: Progressing Goal: Free from restraint events Outcome: Progressing Problem: Potential for Harm to Self or Others Goal: Notifies staff when experiencing harmful thoughts toward self/others Outcome: Progressing Goal: Denies harm toward self or others Outcome: Progressing Normal [facility] Progress Noteon 07-16-2023 Progress Note Pt discharged to [facility]. Pt signed and understood discharge instructions with no questions. Pt denies SI. Normal [facility] Progress Note Pt is out in the day area. Pt endorses anxiety. Pt denie sSI?Hi. Pt denie sAH?VH. Pt attends groups. Pt compliant with medication. Safety checks continued per unit policy. Normal [facility] Progress Note Pt withdrawn and isolative to his room. Denies SI/HI/AH/VH. Pt concordant with all the medications. Pt observed sleeping the entire night. Breathing evident and unlabored. Used Zofran at 5:54 am for nausea. Pt is discharge focused at this time. Remains on level II observations. All safety checks maintained as per the unit protocols. Vitals BP 141/97 Temp 97.1 Pulse 103 Resp 16 SpO2 [address] [facility] GROUPNOTEon 07-15-2023 GROUPNOTE Department: [facility] Group Topic: Other Group Date: 07/15/2023 Start Time: 899 End Time: 929 Facilitators: Buddy Mcconnell Number of Participants: 4 Group Name: Jukebox Treatment Modality: Leisure Development Purpose: express feelings, improve communication skills, and reinforce self-care Summary: Pts will choose a song from a given list. Pts will share how the song has impacted their life or how the song is meaningful to them. Pts will have the opportunity to listen, sing, or otherwise perform the song with the therapist if they desire. Name: Fransisco Cantor Date of : 1975 MR: [id number] Appearance: Appropriately dressed and groomed Mood: Euthymic Affect: Appropriate Behavior: Pleasant Alertness: Alert Speech: Appropriate Level/Quality of Participation: active Interactions with others: supportive Interventions utilized were Building rapport and engagement and Empathic listening Patient's Response to Intervention: Pt voiced improvement Next Step: Continue with current services Patients Problems: Patient Active Problem List Diagnosis Arthritis of both knees Primary osteoarthritis of both knees Abnormal liver function tests Manic behavior (HCC) Normal [facility] IDNon 07-15-2023 IDN Problem: Sensory Perceptual Alteration as Evidenced by Goal: Cooperates with admission process Outcome: Progressing Goal: Patient/Family participate in treatment and discharge plans Outcome: Progressing Goal: Free from restraint events Outcome: Progressing Problem: Potential for Harm to Self or Others Goal: Notifies staff when experiencing harmful thoughts toward self/others Outcome: Progressing Goal: Denies harm toward self or others Outcome: Progressing Normal [facility] IDN Problem: Potential f or Harm to Self or Others Goal: Notifies staff when experiencing harmful thoughts toward self/others Outcome: Progressing Goal: Denies harm toward self or others Outcome: Progressing Problem: Sensory Perceptual Alteration as Evidenced by Goal: Free from restraint events Outcome: Progressing [facility] Progress Noteon 07-15-2023 Progress Note Pt withdrawn and isolative to his room. Denies SI/HI/AH/VH. Pt concordant with all the HS medications. Pt observed sleeping the entire night. Breathing evident and unlabored. Used Zofran at 4:19 am for nausea. Pt is discharge focused at this time. Remains on level II observations. All safety checks maintained as per the unit protocols. Vitals taken at 1939 HRS BP 145/99 Temp 97.9 Pulse 85 Resp 16 SpO2 [address] [facility] IDNon 07-14-2023 IDN Problem: Sensory Perceptual Alteration as Evidenced by Goal: Cooperates with admission process Outcome: Progressing Goal: Patient/Family participate in treatment and discharge plans Outcome: Progressing Goal: Free from restraint events Outcome: Progressing Problem: Potential for Harm to Self or Others Goal: Notifies staff when experiencing harmful thoughts toward self/others Outcome: Progressing Goal: Denies harm toward self or others Outcome: Progressing Normal [facility] IDN Problem: Sensory Perceptual Alteration as Evidenced by Goal: Cooperates with admission process Outcome: Progressing Goal: Patient/Family participate in treatment and discharge plans Outcome: Progressing Goal: Free from restraint events Outcome: Progressing Problem: Potential for Harm to Self or Others Goal: Notifies staff when experiencing harmful thoughts toward self/others Outcome: Progressing Goal: Denies harm toward self or others Outcome: Progressing Normal [facility] Progress Noteon 07-14-2023 Progress Note Pt stated he was feeling agitated and needed something to help him calm down. Pt given po benadryl, ativan and haldol with good effect. Pt denies SI/HI. Pt denie sAH/VH. Pt compliant with all scheduled medication. Safety checks continued per unit policy. Normal [facility] GROUPNOTEon 07-13-2023 GROUPNOTE Department: [facility] Group Topic: Other Group Date: 07/13/2023 Start Time: 1530 End Time: 1600 Facilitators: Buddy Mcconnell Number of Participants: 3 Group Name: Trivia Treatment Modality: Leisure Development Purpose: express feelings, improve communication skills, and reinforce self-care Summary: Pts will engage in [employer] [place] surrounding several areas of pop culture. After each question and answer, pts are encouraged to discuss their relation to the topic, where they were when such and such happened, when they first heard a song, their first impressions of a movie etc. Name: Fransisco Cantor Date of : 1975 MR: [id number] Appearance: Appropriately dressed and groomed Mood: Euthymic Affect: Appropriate Behavior: Pleasant Alertness: Alert Speech: Appropriate Level/Quality of Participation: active Interactions with others: supportive Interventions utilized were Building rapport and engagement and Empathic listening Patient's Response to Intervention: Pt voiced improvement Next Step: Continue with current services Patients Problems: Patient Active Problem List Diagnosis Arthritis of both knees Primary osteoarthritis of both knees Abnormal liver function tests Manic behavior (HCC) Normal [facility] GROUPNOTE Department: [facility] Group Topic: Other Group Date: 07/13/2023 Start Time: 1400 End Time: 1430 Facilitators: Buddy Mcconnell Number of Participants: 7 Group Name: Jukebox Treatment Modality: Leisure Development Purpose: express feelings, improve communication skills, and reinforce self-care Summary: Pts will choose a song from a given list. Pts will share how the song has impacted their life or how the song is meaningful to them. Pts will have the opportunity to listen, sing, or otherwise perform the song with the therapist if they desire. Name: Fransisco Cantor Date of : 1975 MR: [id number] Appearance: Appropriately dressed and groomed Mood: Euthymic Affect: Appropriate Behavior: Pleasant Alertness: Alert Speech: Appropriate Level/Quality of Participation: active Interactions with others: supportive Interventions utilized were Building rapport and engagement and Empathic listening Patient's Response to Intervention: Pt voiced improvement Next Step: Continue with current services Patients Problems: Patient Active Problem List Diagnosis Arthritis of both knees Primary osteoarthritis of both knees Abnormal liver function tests Manic behavior (HCC) [facility] IDNon 07-13-2023 IDN Problem: Sensory Perceptual Alteration as Evidenced by Goal: Cooperates with admission process Outcome: Progressing Goal: Patient/Family participate in treatment and discharge plans Outcome: Progressing Goal: Free from restraint events Outcome: Progressing Problem: Potential for Harm to Self or Others Goal: Notifies staff when experiencing harmful thoughts toward self/others Outcome: Progressing Goal: Denies harm toward self or others Outcome: Progressing [facility] Progress Noteon 07-13-2023 Progress Note Pt c/o feeling agita sharath after talking to his dad. Pt requesting medications stating I don't want to loose it. Haldol, benadryl and ativan given PO at 1740. Pt is out on the unit at this time and reports feeling calmer. 15 minute safety checks continued per unit protocol. [facility] Progress Note Pt is seen in the [facility] area this morning for assessment and medications. Pt is cooperative with assessment and compliant with scheduled medications.pt reports sleep and appetite are good. Pt denies SI/HI and hallucination. Pt is pleasant in interaction. 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 Pt denies physical complaints at this time and vitals are stable. Vitals: 07/13/23 0746 BP: 131/89 Pulse: 101 Resp: 17 Temp: 36.7 ?C (98.1 ?F) SpO2: 98% Pt is encouraged to attend groups and come to staff with needs. 15 minute checks continued per unit protocol. [facility] Progress Note Patient came up to nurses stated that he was nauseous and having some knee pain. This RN went to get patient PRN meds from med room, when returned patient was yelling, screaming stating that the BRAVE officers werent helping him and that he couldve been having an asthma attack and then he demanded that he get his clothes from laundry room. I explained to the patient that he could have his inhaler, but he didn't mention it, I educated patient on the medications that he asked for. This technical publications writer went to get him his inhaler and to check on his clothes in dryer. After receiving his PRN medications, the patient began yelling, screaming at staff. Patient was given PRN PO medication for agitation. Normal [facility] Progress Note Patient was seen in day area for medication administration and assessment. Pt stated that he was having a great day and that he felt fine. He was excited about his being discharged soon. Pt was medication compliant and was seen socializing on the unit with other patients. Plan of care is ongoing. Patient encouraged to seek staff member if feelings of suicide or homicide are experienced. Patient verbalized understanding. [facility] CARECOORDon 07-12-2023 CARECOORD Patient required PRN s yesterday afternoon. Nursing discussed this with Dr. Brambila who will hold discharge at this time. Message was left for Margareth at [facility] [place] canceling discharge to facility today. lime kiln worker helper will update the program when patient is more stable for discharge. [facility] GROUPNOTEon 07-12-2023 GROUPNOTE Department: [facility] Group Topic: Other Group Date: 07/12/2023 Start Time: 1400 End Time: 1430 Facilitators: Buddy Mcconnell Number of Participants: 6 Group Name: Jukebox Treatment Modality: Leisure Development Purpose: express feelings, improve communication skills, and reinforce self-care Summary: Pts will choose a song from a given list. Pts will share how the song has impacted their life or how the song is meaningful to them. Pts will have the opportunity to listen, sing, or otherwise perform the song with the therapist if they desire. Name: Fransisco Cantor Date of : 1975 MR: [id number] Appearance: Appropriately dressed and groomed Mood: Euthymic Affect: Appropriate Behavior: Pleasant Alertness: Alert Speech: Appropriate Level/Quality of Participation: active Interactions with others: supportive Interventions utilized were Building rapport and engagement and Empathic listening Patient's Response to Intervention: Pt voiced improvement Next Step: Continue with current services Patients Problems: Patient Active Problem List Diagnosis Arthritis of both knees Primary osteoarthritis of both knees Abnormal liver function tests Manic behavior (HCC) Normal [facility] IDNon 07-12-2023 IDN Problem: Sensory Perceptual Alteration as Evidenced by Goal: Cooperates with admission process Outcome: Progressing Goal: Patient/Family participate in treatment and discharge plans Outcome: Progressing Goal: Free from restraint events Outcome: Progressing Problem: Potential for Harm to Self or Others Goal: Notifies staff when experiencing harmful thoughts toward self/others Outcome: Progressing Goal: Denies harm toward self or others Outcome: Progressing [facility] IDN Problem: Sensory Perceptual Alteration as Evidenced by Goal: Cooperates with admission process 07/11/20232206 by Iza Cowart RN Outcome: Progressing Problem: Sensory Perceptual Alteration as Evidenced by Goal: Patient/Family participate in treatment and discharge plans 07/11/20232206 by Iza Cowart RN Outcome: Progressing Problem: Sensory Perceptual Alteration as Evidenced by Goal: Free from restraint events 07/11/20232206 by Iza Cowart RN Outcome: Progressing Problem: Potential for Harm to Self or Others Goal: Notifies staff when experiencing harmful thoughts toward self/others 07/11/20232219 by Iza Cowart RN Outcome: Progressing 07/11/20232206 by Iza Cowart RN Outcome: Progressing [facility] IDN Problem: Sensory Perceptual Alteration as Evidenced by Goal: Cooperates with admission process Outcome: Progressing Goal: Patient/Family participate in treatment and discharge plans Outcome: Progressing Goal: Free from restraint events Outcome: Progressing Problem: Potential for Harm to Self or Others Goal: Notifies staff when experiencing harmful thoughts toward self/others Outcome: Progressing Goal: Denies harm toward self or others Outcome: Progressing [facility] Progress Noteon 07-12-2023 Progress Note Pt seen pacing in e vela. Increased restlessness and self talk. Pt endorses auditory hallucinations and asks if he is due for medications. No scheduled medications due. Pt offered and given haldol, ativan and benadryl PO at 1554. Pt sitting in the day area watching tv at this time. Continued self talk noted. 15 minute safety checks continued per unit protocol. [facility] Progress Note Pt is seen in day ar ea this morning for assessment and medications. Pt is cooperative with assessment and compliant with scheduled medications.pt reports sleep and appetite are good. Pt denies SI/HI and hallucinations however pt appears internally stimulated with some self talk and delay in response to questions. Pt is seeking discharge.Pt denies physical complaints at this time and vitals are stable. Vitals: 07/12/23 0731 BP: 143/94 Pulse: 95 Resp: 15 Temp: 36.9 ?C (98.4 ?F) SpO2: 97% Pt is encouraged to attend groups and come to staff with needs. 15 minutes checks continued for safety per unit policy. [facility] Progress Note Nutrition rescreen completed. Chart reviewed. Patient to be monitored and followed by the diet agriculture laboratory technician. Normal [facility] Progress Note Patient seen in day area for medication administration and assessment. Patient was medication compliant, has been isolative to his room, however he came out for HS snack briefly. Patient denies SI/HI/AVH. Plan of care is ongoing. Patient encouraged to seek staff member if feelings of suicide or homicide are experienced. Patient verbalized understanding. [facility] CARECOORDon 07-11-2023 CARECOORD lime kiln worker helper spoke to Margareth at [facility]. He reports that facility is ready to accept patient tomorrow. Facility will provide direct transportation from [facility] to [facility] [place]. He will confirm a time for pickup and call back to unit staff to inform of pickup time. [facility] GROUPNOTEon 07-11-2023 GROUPNOTE Department: [facility] Group Topic: Other Group Date: 07/11/2023 Start Time: 1525 End Time: 1557 Facilitators: Jessica Cowan Number of Participants: 4 Group Name: Leisure Treatment Modality: Activity Therapy Purpose: enhance coping skills and reinforce self-care Summary: Concentration card game Object of game is to prompt conversations a fun way to get participants to engage with the group, enhance coping skills and encourage listening skills. Name: Fransisco Cantor Date of : 1975 MR: [id number] Appearance: Appropriately dressed and groomed Affect: Appropriate Behavior: Pleasant Alertness: Alert Speech: Appropriate Level/Quality of Participation: active Interactions with others: supportive Interventions utilized were Building rapport and engagement Patient's Response to Intervention: Patient actively engaged in group promoting relaxation. Will continue to offer groups and encourage participation face mask worn at all times during patient interations. Patients Problems: Patient Active Problem List Diagnosis Arthritis of both knees Primary osteoarthritis of both knees Abnormal liver function tests Manic behavior (HCC) Normal [facility] GROUPNOTE Department: [facility] Group Topic: Other Group Date: 07/11/2023 Start Time: 140 End Time: 1425 Facilitators: Meghan Carnes Number of Participants: 1 Group Name: Recreation Therapy Treatment Modality: Recreation Therapy Purpose: build self awareness in relation to leisure Summary: If I Could, I would- To give patients an opportunity to explore self awareness, as well as, expression in relation to leisure and check in with themselves. Name: Fransisco Cantor Date of : 1975 MR: [id number] Appearance: Good eye contact Affect: Restricted Behavior: Pleasant Alertness: Alert Speech: Appropriate Level/Quality of Participation: engaged Interactions with others: na Interventions utilized were Empathic listening Patient's Response to Intervention: Patient engaged in intervention with good eye contact during interaction. Patient was able to demonstrate a starting point for reconnection with self through appropriate responses during discussion. Patient, however, requested to listen to music prior to getting through full intervention. Patient was given the chance to listen to 2 songs. Patient was interactive with this therapist at times and reported feeling at peace. Continue to engage Patient in groups to address stated treatment goals and objectives. Patients Problems: Patient Active Problem List Diagnosis Arthritis of both knees Primary osteoarthritis of both knees Abnormal liver function tests Manic behavior (HCC) Normal [facility] Progress Noteon 07-11-2023 Progress Note Patient is becoming increasingly more delusional and agitated. He spoke with his mother and it seemed to trigger him. He was repeatedly pushing the call light button in his room, to an obsessive point. He is unable to focus, and needs frequent redirection. He was given Benadryl 50 mg po, Haldol 5 mg po, and Ativan 2 mg po. 1649: Patient has calmed, and is redirectable. Normal [facility] Progress Note Patient is friendly and cooperative. He is social with the other patients on the unit. He repeats himself frequently, and has poor short term memory. His behavior is bizarre, he acts like an adolescent despite being 48 years old. He is religiously preoccupied, and frequently talks to other patients about Hira. He took all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 Lymphocytes/100 WBC (Bld) 30.7 % Normal 15.0-45.0 [facility] Comment on above: Performed By: #### L [id number] #### Accounts Payable Professional: TIFFANY OCONNOR ([id number]) [facility] ([facility]) [address] [place] [address] MCH (RBC) [Entitic mass] 29.6 pg Normal 26.0-34.0 [facility] Comment on above: Performed By: #### L [id number] #### Accounts Payable Professional: TIFFANY OCONNOR ([id number]) [facility]) [address] [place] [address] MCHC 34.9 % Normal 30.5-36.0 [facility] Comment on above: Performed By: #### L [id number] #### Accounts Payable Professional: TIFFANY OCONNOR ([id number]) [facility] ([facility]) [address] [place] [address] MCV (RBC) [Entitic vol] 84.9 fL Normal 77.0-99.0 [facility] Comment on above: Performed By: #### L [id number] #### Accounts Payable Professional: TIFFANY OCONNOR ([id number]) [facility]) [address] [place] [address] Monocytes (Bld) [#/Vol] 0.6 10*3/uL Normal 0.0-0.9 [facility] Comment on above: Performed By: #### L [id number] #### Accounts Payable Professional: TIFFANY OCONNOR ([id number]) [facility] ([facility]) [address] [place] [address] Monocytes/100 WBC (Bld) 7.5 % Normal 5.0-13.0 [facility] Comment on above: Performed By: #### L [id number] #### Accounts Payable Professional: TIFFANY OCONNOR ([id number]) [facility] ([facility]) [address] [place] [address] NEUTROPHILS ABSOLUTE 5.0 10*3/uL Normal 1.8-7.5 [facility] Comment on above: Performed By: #### L [id number] #### Accounts Payable Professional: TIFFANY OCONNOR ([id number]) [facility] ([facility]) [address] [place] [address] Neutrophils/100 WBC (Bld) 61.4 % Normal 38.0-82.[address] [facility] Comment on above: Performed By: #### L [id number] #### Accounts Payable Professional: TIFFANY OCONNOR ([id number]) [facility] ([facility]) [address] [place] [address] NRBC 0.0 /100 WBCs Normal 0.0-2.0 [facility] Comment on above: Performed By: #### L [id number] #### Accounts Payable Professional: TIFFANY OCONNOR ([id number]) [facility] ([facility]) [address] [place] [address] Platelet mean volume (Bld) [Entitic vol] 10.0 fL Normal 9.0-12.[address] [facility] Comment on above: Performed By: #### L [id number] #### Accounts Payable Professional: TIFFANY OCONNOR ([id number]) [facility] ([facility]) [address] [place] [address] Platelets (Bld) [#/Vol] 284 10*3/uL Normal 140-[address] [facility] Comment on above: Performed By: #### L [id number] #### Accounts Payable Professional: TIFFANY OCONNOR ([id number]) [facility] ([facility]) [address] [place] [address] [place] RBC (Bld) [#/Vol] 5.23 10*6/uL Normal 4.40-5.90 [facility] Comment on above: Performed By: #### L [id number] #### Accounts Payable Professional: TIFFANY OCONNOR ([id number]) [facility] ([facility]) [address] [place] [address] [place] WBC (Bld) [#/Vol] 8.1 10*3/uL Normal 3.6-10.7 [facility] Comment on above: Performed By: #### L [id number] #### Accounts Payable Professional: TIFFANY OCONNOR ([id number]) [facility]) [address] [place] [address] CKon 07-05-2023 CK [Catalytic activity/Vol] 78 U/L Normal 30-170 [facility] Comment on above: Performed By: #### L [id number] #### Accounts Payable Professional: TIFFANY OCONNOR ([id number]) [facility] ([facility]) [address] [place] [address] COMPREHENSIVE METABOLIC PANE Carlito 07-05-2023 Albumin [Mass/Vol] 4.7 g/dL Normal 3.5-5.0 [facility] Comment on above: Performed By: #### L [id number] #### Accounts Payable Professional: TIFFANY OCONNOR ([id number]) [facility]) [address] [place] [address] ALP [Catalytic activity/Vol] 63 U/L Normal 38-126 [facility] Comment on above: Performed By: #### L [id number] #### Accounts Payable Professional: TIFFANY OCONNOR ([id number]) [facility]) [address] [place] [address] ALT [Catalytic activity/Vol] 26 U/L Normal 0-49 [facility] Comment on above: Performed By: #### L [id number] #### Accounts Payable Professional: TIFFANY OCONNOR ([id number]) [facility]) [address] [place] [address] Anion gap [Moles/Vol] 11 mmol/L Normal 3-13 [facility] Comment on above: Performed By: #### L [id number] #### Accounts Payable Professional: TIFFANY OCONNOR ([id number]) [facility]) [address] [place] [address] AST [Catalytic activity/Vol] 22 U/L Normal 15-46 [facility] Comment on above: Performed By: #### L [id number] #### Accounts Payable Professional: TIFFANY OCONNOR ([phone]) [facility] ([facility]) [address] [place] [address] Bilirubin [Mass/Vol] 0.5 mg/dL Normal 0.2-1.3 [facility] Comment on above: Performed By: #### L [id number] #### Accounts Payable Professional: TIFFANY OCONNOR ([id number]) [facility] ([facility] [address] [place] [address] Calcium [Mass/Vol] 9.7 mg/dL Normal 8.4-10.[address] [facility] Comment on above: Performed By: #### L [id number] #### Accounts Payable Professional: TIFFANY OCONNOR ([id number]) [facility] [address] [place] [address] Chloride [Moles/Vol] 103 mmol/L Normal 98-107 [facility] Comment on above: Performed By: #### L [id number] #### Accounts Payable Professional: TIFFANY OCONNOR ([id number]) [facility] ([facility]) [address] [place] [address] [place] CO2 [Moles/Vol] 24 mmol/L Normal 22-30 [facility] Comment on above: Performed By: #### L [id number] #### Accounts Payable Professional: TIFFANY OCONNOR ([id number]) [facility] [address] [place] [address] Creatinine [Mass/Vol] 0.58 mg/dL Low 0.66-1.25 [facility] Comment on above: Performed By: #### L [id number] #### Accounts Payable Professional: TIFFANY OCONNOR ([id number]) [facility] ([facility] [address] [place] [address] GLOMERULAR FILTRATION RATE ML/MIN/1.73 SQ M.PREDICTED >90.0 Normal >60.[address] [facility] Comment on above: Result Comment: Calc ulation based on the Chronic Kidney Disease Epidemiology Collaboration (CKD-EPI) equation refit without adjustment for race Performed By: #### L [id number] #### Accounts Payable Professional: TIFFANY OCONNOR ([id number]) [facility] [address] [place] [address] Glucose [Mass/Vol] 99 mg/dL Normal 70-100 [facility] Comment on above: Performed By: #### L [id number] #### Accounts Payable Professional: TIFFANY OCONNOR ([phone]) [facility] [address] [place] [address] Potassium [Moles/Vol] 4.2 mmol/L Normal 3.5-5.1 [facility] Comment on above: Performed By: #### L [id number] #### Accounts Payable Professional: TIFFANY OCONNOR ([id number]) [facility] ([facility]) [address] [place] [address] Protein [Mass/Vol] 7.8 g/dL Normal 6.3-8.2 [facility] Comment on above: Performed By: #### L [id number] #### Accounts Payable Professional: TIFFANY OCONNOR ([id number]) [facility] ([facility]) [address] [place] [address] Sodium [Moles/Vol] 138 mmol/L Normal 135-145 [facility] Comment on above: Performed By: #### L [id number] #### Accounts Payable Professional: TIFFANY OCONNOR ([id number]) [facility] ([facility]) [address] [place] [address] Urea nitrogen [Mass/Vol] 17 mg/dL Normal 9-20 [facility] Comment on above: Performed By: #### L [id number] #### Accounts Payable Professional: TIFFANY OCONNOR ([id number]) [facility] ([facility]) [address] [place] [address] DRUGS OF ABUSEon 07-05-2023 AMPHETAMINE SCREEN Negative Normal [facility] Comment on above: Performed By: #### L [id number] #### Accounts Payable Professional: TIFFANY OCONNOR ([id number]) [facility] ([facility]) [address] [place] [address] BARBITURATES SCREEN Negative Normal [facility] Comment on above: Performed By: #### L [id number] #### Accounts Payable Professional: TIFFANY OCONNOR ([id number]) [facility] ([facility]) [address] [place] [address] [place] BENZODIAZEPINE SCREEN Negative Normal [facility] Comment on above: Performed By: #### L [id number] #### Accounts Payable Professional: TIFFANY OCONNOR ([id number]) [facility] ([facility]) [address] [place] [address] [place] COCAINE METAB. SCREEN Negative Normal [facility] Comment on above: Performed By: #### L [id number] #### Accounts Payable Professional: TIFFANY OCONNOR ([id number]) [facility] ([facility]) [address] [place] [address] [place] METHADONE SCREEN Negative Normal [facility] Comment on above: Performed By: #### L [id number] #### Accounts Payable Professional: TIFFANY OCONNOR ([id number]) [facility] ([facility]) [address] [place] [address] OPIATES SCREEN Negative Normal [facility] Comment on above: Performed By: #### L [id number] #### Accounts Payable Professional: TIFFANY OCONNOR ([id number]) [facility] ([facility]) [address] [place] [address] [place] OXYCODONE SCREEN Negative Normal [facility] Comment on above: Performed By: #### L [id number] #### Accounts Payable Professional: TIFFANY OCONNOR ([id number]) [facility] ([facility]) [address] [place] [address] [place] PHENCYCLIDINE SCREEN Negative Normal [facility] Comment on above: Result Comment: [place] COMMENTS: The expected value for all of the drugs listed above is Negative. The following drugs or drug groups have been screened for by Immunoassay at the following thresholds: Amphetamine class (1000 ng/mL) Barbiturates (200 ng/mL) Benzodiazepines (200 ng/mL) Cocaine (300 ng/mL) Methadone (300 ng/mL) Opiates (300 ng/mL) Oxycodone (100 ng/mL) PCP (25 ng/mL) NOTE: These results are for medical treatment only. Analysis performed using non-forensic procedures. POSITIVE results are NOT confirmed by a more specific alternative method unless requested. If confirmation is needed, request confirmation under separate order. Performed By: #### L [id number] #### Accounts Payable Professional: TIFFANY OCONNOR ([phone]) [facility] ([facility]) [address] [place] [address] ECG 12-LEADon 07-05-2023 ECG 12-LEAD IMPRESSION: Sinus rhythm Electronically Signed On 07-05-2023 15:55:33 EDT by Margareth Shah [facility] ED Nursing Noteon 07-05-2023 ED Nursing Note Pt transferred to [facility] by transport and protective services. Two bags of belongings taken w pt. [facility] 07/05/23 1848 [facility] ED Nursing Note Report called to [facility] RN, transport here for pt Heavenly Cortes RN 07/05/23 1837 [facility] ED Nursing Note Marichuy spool winder @ bedside to obtain vitals [facility] 07/05/23 1831 [facility] ED Nursing Note Patient is more calm is resting now. Ulisses Briceno, LISA 07/05/23 1850 [facility] ED Nursing Note Pt recieved dinner t ray [facility] 07/05/23 1658 [facility] ED Nursing Note Visitor @ bedside [facility] 07/05/23 1633 [facility] ED Nursing Note Dinner tray ordered [facility] 07/05/23 1626 [facility] ED Nursing Note Pt moved to room 50 [facility] 07/05/23 1621 [facility] ED Nursing Note ED resident at [facility] 07/05/23 1453 [facility] ED Nursing Note Pt was changed into 2 gowns, had vital signs and lab work drawn and was wanded by protective services. Pt has 2 bags of belongings which was locked up in locker 54A [facility] 07/05/23 1439 [facility] ED Provider Noteon ED Provider Note Emergency Department Encounter [facility] EMERGENCY DEPT Patient: Fransisco Cantor : 1975 Date of Evaluation: 07/05/2023 ED Provider: ALEX KAISER MD TRIAGE NOTE I independently examined and evaluated Fransisco aCntor. I personally saw & evaluated the patient as the Clinician in Triage and performed a brief history and physical exam, established acuity, and ordered appropriate tests to develop basic plan of care. Patient will be seen by an SALLY, resident and/or my physician partner who will independently evaluate the patient. Please see subsequent provider notes for further details and disposition Brief HPI: In brief, Fransisco Cantor is a 48 y.o. male that presents for mental health evaluation. The patient is here with his mother, he apparently has a history of bipolar disease schizoaffective disorder personality disorder he is not clear on whether he is compliant with any of his medication or recent treatment, he is manic, flight of ideas, pressured speech he is having psychosis about rastafari ideation. He and his mom both agree he is not capable of managing his ADLs at this time.. Focused Physical exam: PSYCH: He is awake alert answering questions, he has pressured speech flight of ideas manic behavior, he is perseverating on rastafari ideation, he denies being suicidal or homicidal, but he and his mother agree that he cannot take care of his ADLs. Plan/MDM: Behavioral health evaluation was ordered. Please see subsequent provider note for further details and disposition Comment: Please note this report has been produced using speech recognition software and may contain errors related to that system including errors in grammar, punctuation, and spelling as well as words and phrases that may be inappropriate. If there are any questions or concerns please feel free to contact the dictating provider for clarification ALEX KAISER MD [employer] Alex Kaiser MD 07/05/23 1422 [facility] ED Provider Note EMERGENCY DEPARTMENT ENCOUNTER Pt Name: Fransisco Cantor Birthdate 1975 Date of evaluation: 07/05/2023 ED Provider: LEWIS TAYLOR MD CHIEF COMPLAINT Chief Complaint Patient presents with Manic Behavior Came in via triage for clinton was pink slipped for bipolar & clinton. Denies SI/HI. Denies SI/HI. HISTORY OF PRESENT ILLNESS (Location/Symptom, Timing/Onset, Context/Setting, Quality, Duration, Modifying Factors, Severity) Note limiting factors. I wore appropriate PPE for the entirety of this encounter. HPI Fransisco Cantor is a 48 y.o. who presents to the emergency department with chief complaint of clinton. He was pink slipped in triage. Patient was actually coming in because he thought his symptoms could be related to withdrawal from Suboxone. He reportedly has not taken his dose in 7 days. However he states that he has rastafari undertones is thinking, is praying more, everything is happening and threes. He states that he has a history of bipolar and does not like taking all of his medications due to not believing in them. He does state that he is taking his Effexor but cannot remember specifically when his last dose was. Per chart review he has been prescribed Suboxone recently. Also has a history of Seroquel, Vistaril, Celebrex. I do not see any Effexor there. He denies any SI, HI, hallucinations. Patient denies any delusions but he is having them during my assessment. Nursing Notes were reviewed. Limitations to history: None Outside historians: None REVIEW OF SYSTEMS Review of Systems Pertinent positives and negatives as per HPI. PAST MEDICAL HISTORY Past Medical History: Diagnosis Date Anxiety Current smoker H/O opioid abuse ([facility]) ON SUBOXONE Osteoarthritis of both knees SCHEDULED FOR THE SURGERY ON 04/01/2018 SURGICAL HISTORY Past Surgical History: Procedure Laterality Date ANTERIOR CRUCIATE LIGAMENT REPAIR 2009 AT [facility] JOINT REPLACEMENT Bilateral 04/01/2018 knees MOUTH SURGERY 2006 INFECTED TOOTH NEEDING SURGERY. CURRENT MEDICATIONS There are no discharge medications for this patient. ALLERGIES Patient has no known allergies. FAMILY HISTORY No family history on file. SOCIAL HISTORY Social History Socioeconomic History Marital status: Single Tobacco Use Smoking status: Every Day Packs/day: 1 Types: Cigarettes Smokeless tobacco: Never Tobacco comments: Quit smokin YEARS Substance and Sexual Activity Alcohol use: Not Currently Drug use: Not Currently Social Determinants of Health Housing Stability: Patient Unable To Answer (07/05/2023) Housing Stability Vital Sign Unable to Pay for Housing in the Last Year: Patient unable to answer Unstable Housing in the Last Year: Patient unable to answer SCREENINGS PHYSICAL EXAM ED Triage Vitals [07/05/23 1503] Temp Heart Rate Resp BP 37 ?C (98.6 ?F) 99 18 128/82 SpO2 Temp Source Heart Rate Source Patient Position 95 % Temporal Monitor -- BP Location FiO2 (%) -- -- Physical Exam Constitutional: Appearance: He is well-developed. HENT: Head: Normocephalic. Right Ear: External ear normal. Left Ear: External ear normal. Nose: Nose normal. Mouth/Throat: Mouth: Mucous membranes are moist. Eyes: Extraocular Movements: Extraocular movements intact. Cardiovascular: Rate and Rhythm: Normal rate and regular rhythm. Pulses: Normal pulses. Heart sounds: Normal heart sounds. Pulmonary: Effort: Pulmonary effort is normal. Breath sounds: Normal breath sounds. Abdominal: General: Abdomen is flat. There is no distension. Palpations: Abdomen is soft. Tenderness: There is no abdominal tenderness. There is no guarding. Musculoskeletal: General: Normal range of motion. Cervical back: Normal range of motion. Skin: General: Skin is warm and dry. Capillary Refill: Capillary refill takes less than 2 seconds. Neurological: General: No focal deficit present. Mental Status: He is alert and oriented to person, place, and time. Psychiatric: Attention and Perception: He does not perceive auditory or visual hallucinations. Speech: Speech is rapid and pressured and tangential. Behavior: Behavior is not agitated. Thought Content: Thought content is paranoid and delusional. Thought content does not include homicidal or suicidal ideation. DIAGNOSTIC RESULTS RADIOLOGY (Per Emergency Physician): Interpretation per the Radiologist below, if available at the time of this note: No orders to display LABS: Labs Reviewed COMPREHENSIVE METABOLIC PANEL - Abnormal Result Value SODIUM 138 POTASSIUM 4.2 CHLORIDE 103 CARBON DIOXIDE 24 ANION GAP 11 UREA NITROGEN 17 CREATININE 0.58 (*) GLUCOSE 99 CALCIUM 9.7 AST (SGOT) 22 ALT 26 ALKALINE PHOSPHATASE 63 ALBUMIN 4.7 BILIRUBIN, TOTAL 0.5 TOTAL PROTEIN 7.8 eGFR >90.0 SARS-COV-2 ANTIGEN - Normal SARS-CoV-2 Antigen Negative CBC WITH AUTO DIFFERENTIAL - No (more content not included)... Normal [facility] ED Provider Note Emergency Department Encounter [facility] EMERGENCY DEPT Patient: Fransisco Cantor : 1975 Date of Evaluation: 07/05/2023 ED Supervising Physician: Kimo Torres DO I personally evaluated Fransisco Cantor and made/approved the management plan and take responsibility for the patient management. This will serve as my Supervisory note and shared attestation. I did perform a substantive portion of the visit including all aspects of the Medical Decision Making. I wore appropriate PPE for the entirety of this encounter. In brief, Fransisco Cantor is a 48 y.o. that presents to the emergency department with concern for clinton. The patient has a history of bipolar disorder, he is medication noncompliant. He reports he has not slept in 7 days. He reports that he is withdrawing from Suboxone. He reports that he uses all drugs. He denies any complaints at this time. Focused exam: Speech is rapid and tangential, anxious appearing, skin is warm and dry, respirations are even and unlabored. Brief ED course/MDM: 4:01 PM - The patient presented with chief complaint of manic episode. The patient appears manic, his speech is rapid and tangential and he is anxious. The patient has a history of bipolar disorder and is medication noncompliant. Differential diagnose includes but is not limited to primary psychiatric disturbance/decompensat ion, drug intoxication, electrolyte abnormality. To aid in management, I performed an independent interpretation of all laboratory tests, EKG, imaging, and other diagnostics ordered. Blood counts, electrolytes, kidney function, CK, ethanol, and UDS are unremarkable. Urine fentanyl is pending. The patient symptoms are likely due to decompensated clinton. He was given Zyprexa 10 mg p.o. for agitation. He will be admitted for psychiatric evaluation. Patient's care was significantly impacted by social determinants of health including Drug addiction. All diagnostic, treatment, and disposition decisions were made by myself in conjunction with the Resident. I also supervised nicolas portions of any procedures performed by the Resident. For all further details of the patient's emergency department visit, please see their documentation. (Comment: Please note this report has been produced using speech recognition software and may contain errors related to that system including errors in grammar, punctuation, and spelling, as well as words and phrases that may be inappropriate. If there are any questions or concerns please feel free to contact the dictating provider for clarification.) Kimo Torres, DO [employer] Kimo Torres, DO 07/05/[address] [facility] ETHANOLon 07-05-2023 ETHANOL IN SER/PLAS <0.010 Normal 0.000-0.010 [facility] Comment on above: Result Comment: [place] COMMENTS: NOTE: This result is for medical treatment only. Analysis performed using non-forensic procedures. Performed By: #### L [id number] #### Accounts Payable Professional: TIFFANY OCONNOR ([phone]) [facility] [address] [place] [address] FENTANYL, URINEon 07-05-2023 FENTANYL SCREEN, URINE Negative Normal Negative [facility] Comment on above: Result Comment: [place]G [place] COMMENTS: Fentanyl has been screened for by Immunoassay at a 1 ng/ml threshold. POSITIVE results are not confirmed by a more specific alternative method unless requested. If confirmation is needed, request confirmation under separate order. NOTE: These results are for medical treatment only. Analysis performed using non-forensic procedures. Performed By: #### L [id number] #### Accounts Payable Professional: TIFFANY OCONNOR ([id number]) [facility] [address] [place] [address] HEMOGLOBIN A1Con 07-05-2023 Glucose [Mass/Vol] 108 mg/dL Normal [facility] Comment on above: Order Comment: If no t done within last 12 months Performed By: #### L [id number] #### Accounts Payable Professional: TIFFANY OCONNOR ([id number]) [facility] [address] [place] [address] HbA1c (Bld) [Mass fraction] 5.4 % Normal <5.[address] [facility] Comment on above: Order Comment: If no t done within last 12 months Result Comment: Norm al less than 5.7% Prediabetes 5.7% to 6.4% Diabetes 6.5% or higher --HgbA1C levels may not be accurate in patients who have renal disease, received recent blood transfusions, are anemic, or who have dyshemoglobinemia. Performed By: #### L [id number] #### Accounts Payable Professional: TIFFANY OCONNOR ([id number]) [facility] [address] [place] [address] LIPID PANELon 07-05-2023 Cholesterol [Mass/Vol] 166 mg/dL Normal <200 [facility] Comment on above: Order Comment: If no t done within last 12 months Performed By: #### L [id number] #### Accounts Payable Professional: TIFFANY OCONNOR ([id number]) [facility] [address] [place] [address] Cholesterol in HDL [Mass/Vol] 45 mg/dL Normal 40-[address] [facility] Comment on above: Order Comment: If no t done within last 12 months Performed By: #### L [id number] #### Accounts Payable Professional: TIFFANY OCONNOR ([id number]) [facility]) [address] [place] [address] Cholesterol.total/Chol esterol in HDL [Mass ratio] 4 {ratio} Normal [facility] Comment on above: Order Comment: If no t done within last 12 months Result Comment: Ref Range: < 3 Low Risk for CHD 3-6 Mod Risk for CHD > 6 High Risk for CHD Performed By: #### L [id number] #### Accounts Payable Professional: TIFFANY OCONONR ([id number]) [facility]) [address] [place] [address] LOW DENSITY LIPOPROTEIN 92 mg/dL Normal 0-<[address] [facility] Comment on above: Order Comment: If no t done within last 12 months Performed By: #### L [id number] #### Accounts Payable Professional: TIFFANY OCONNOR ([phone]) [facility]) [address] [place] [address] Triglyceride [Mass/Vol] 147 mg/dL Normal <[address] [facility] Comment on above: Order Comment: If no t done within last 12 months Performed By: #### L [id number] #### Accounts Payable Professional: TIFFANY COONNOR ([id number]) [facility]) [address] [place] [address] SARS-COV-2 ANTIGENon 024 SARS-COV-2 ANTIGEN SARS-COV-2 ANTIGEN -BINAX Reference Negative Negative A negative result does not rule out the possibility of SARS-CoV-2 infection. NAAT-based methods should be considered for symptomatic patients presenting greater than seven days after onset of symptoms. Method: Lateral flow immunoassay. Fact sheets for healthcare providers and patients can be found at the following sites: https://www.fda.gov/med ia/700590/download https://www.fda.gov/med ia/092575/download Normal [facility] Comment on above: Performed By: #### L [id number] #### Accounts Payable Professional: TIFFANY OCONNOR ([id number]) [facility] [address] [place] [address] THYROID STIMULATING HORMONEo n 07-05-2023 THYROID STIMULATING HORMONE 1.336 uIU/mL Normal 0.465-4.[address] [facility] Comment on above: Performed By: #### L [id number] #### Accounts Payable Professional: TIFFANY OCONNOR ([id number]) [facility] ([facility]) [address] [place] [address] Absolute lymphocyte countOrd ered By: Steve Hebert on 05-27-2023 Lymphocytes Auto (Unsp spec) [#/Vol] 1.72 10*3/uL 0.83-4.51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 [facility] [address] [place], [address] MCHC (RBC) [Mass/Vol] 33.0 g/dL Normal 32-36 [facility] Comment on above: Performed By: #### L 500.2500, L100.0100 #### [facility] [address] [place], [address] MCV (RBC) [Entitic vol] 87.6 fL Normal 80-94 [facility] Comment on above: Performed By: #### L 500.2500, L100.0100 #### [facility] [address] [place], [address] Monocytes/100 WBC (Bld) 7.1 % Normal 0-10 [facility] Comment on above: Performed By: #### L 500.2500, L100.0100 #### [facility] [address] [place], [address] Neutrophils/100 WBC (Bld) 56.1 % Normal 47-70 [facility] Comment on above: Performed By: #### L 500.2500, L100.0100 #### [facility] [address] [place], [address] Nucleated RBC (Bld) [#/Vol] 0 10*3/uL Normal 0-5 [facility] Comment on above: Performed By: #### L 500.2500, L100.0100 #### [facility] [address] [place], [address] Platelet mean volume (Bld) [Entitic vol] 10.0 fL Normal 6.2-12.0 [facility] Comment on above: Performed By: #### L 500.2500, L100.0100 #### [facility] [address] [place], [address] Platelets (Bld) [#/Vol] 200 10*3/uL Normal 150-450 [facility] Comment on above: Performed By: #### L 500.2500, L100.0100 #### [facility] [address] [place], [address] RBC (Bld) [#/Vol] 4.77 10*6/uL Normal 4.6-6.2 [facility] Comment on above: Performed By: #### L 500.2500, L100.0100 #### [facility] [address] [place], [address] RDW SD 39.0 fl Normal 35.1-43.9 [facility] Comment on above: Performed By: #### L 500.2500, L100.0100 #### [facility] [address] [place], [address] WBC (Bld) [#/Vol] 7.1 10*3/uL Normal 4.4-11.0 [facility] Comment on above: Performed By: #### L 500.2500, L100.0100 #### [facility] [address] [place], [address] Determination of erythrocyte mean corpuscular volume (MCV)Ordered By: Grady Glez on 05-24-2023 MCV (RBC) [Entitic vol] 87.6 fL 80-94 [facility] Emergency Department Summary on 05-24-2023 Emergency Department Summary [facility] Medical Records Department [address] [place] [address] Emergency Department Summary 05/24/23 MR#: [id number] Acct: [id number] Name: CRUSHERFRANSISCO Rep #: [id number] : 1975 48 From: Grady Glez DO PCP: [facility] Status:DEP ER Location: ED HPI History of Present Illness Chief Complaint: Anxiety Informant: patient Onset/Context/Timing Onset: Today Context: Sudden Onset Timing: Continuous Quality: Anxious Location: Generalized Worsened by: Energy drink Relieved by: Nothing Narrative Narrative: Patient presents with a panic attack that began tonight. Patient states he drank an energy drink and started having a panic attack after that. Patient states he had been walking prior to drinking the energy drink which also caused his heart rate to increase. Patient denies any suicidal or homicidal ideations. Patient states he feels anxious all over. Patient states he has a history of IV drug abuse but has been clean for almost 2 years now. Patient denies any fevers or chills. Patient denies any chest pain or shortness of breath. [facility] Medical History Amphetamine use disorder, moderate, dependence Benzodiazepine use and dependence Drug abuse Hepatitis B Hepatitis C Opiate abuse, continuous Opiate abuse, continuous Polysubstance dependence including opioid type drug, continuous use Home Medications buprenorphine 11.4 mg-naloxone 2.9 mg sublingual tablet 1 tab SL DAILY detox 03/31/19 [History Last Taken 09/05/21] Allergy/AdvReac Type Severity Reaction Status Date / Time No Known Allergies Allergy Verified 09/06/21 07:49 Surgical History Hx of total knee replacement S/P left knee surgery Social History Smoking Status: Current every day smoker tobacco type: cigarettes ROS ROS ED Constitutional Constitutional ED: Denies chills or fever(s) Eyes Eyes: Denies blurry vision or change in vision ENT ENT ED: Reports rhinorrhea; Denies sore throat Cardiovascular Cardiovascular: Denies chest pain or palpitations Respiratory/Chest Respiratory/Chest: Reports cough; Denies dyspnea Gastrointestinal Gastrointestinal: Denies nausea or vomiting Genitourinary Genitourinary ED: Denies dysuria or hematuria Musculoskeletal Musculoskeletal: Reports neck pain; Denies back pain Integumentary Denies abscess or rash Neurologic Neurologic: Denies headache(s) or weakness Psychiatric Psychiatric: Reports anxiety; Denies suicidal ideation or suicidal thoughts Allergic/Immunologic Allergic/Immunologic ED: Denies mouth swelling or urticaria EXAM Physical Exam Const Vital Signs: 05/24/23 00:11 Temperature 96.9 F L Temperature Source Temporal Pulse Rate 79 Respiratory Rate 15 Blood Pressure 130/84 H Blood Pressure Mean 99 Pulse Ox 96 Oxygen Delivery Method Room Air Positive well nourished, well developed and obese General Appearance ED: well developed and NAD Nutritional Appearance: obese HEENT Reports moist mucous membranes Neck supple and no JVD Resp normal respiratory effort and clear to auscultation bilaterally Cardio regular rate and regular rhythm GI non-distended Palpation: soft and tender RUQ; Negative for guarding or rebound tenderness present Extremity normal to inspection General Extremety ED: Negative for edema or tenderness General Extremity: Negative for edema Neuro oriented x3, CN's II-XII intact bilaterally and no sensory deficits noted Sensorium / Orientation: alert Motor Exam: strength 5/5 throughout Psych Mood Affect: anxious MDM MDM MDM Narrative Medical decision making narrative: Differential diagnosis includes acute anxiety, stimulant use, electrolyte abnormality, urinary tract infection, and anemia. CBC will be obtained to assess for leukocytosis and anemia. Basic metabolic profile will be obtained to assess for electrolyte abnormality and renal function. Urinalysis will be obtained to assess for urinary tract infection or hematuria. Lab Data Attestation: I reviewed the patient's lab results. Lab results narrative: CBC was reviewed and was within normal limits. Basic metabolic profile was reviewed and was within normal limits. Urinalysis was reviewed. There is no evidence of urinary tract infection or hematuria. Labs: Laboratory Results - last 24 hr 05/24/23 05/24/23 01:10 01:20 WBC 7.1 RBC 4.77 Hgb 13.8 Hct 41.8 MCV 87.6 MCH 28.9 MCHC 33.0 RDW Std Deviation 39.0 RDW Coeff of Car 12.1 Plt Count 200 MPV 10.0 Immature Gran % (Auto) 0.100 Neut % (Auto) 56.1 Lymph % (Auto) 36.6 (more content not included)... Normal [facility] Erythrocyte distribution wid th ratioOrdered By: Grady Glez on 05-24-2023 Erythrocyte distribution width (RBC) [Ratio] 12.1 % 11.6-14.6 [facility] Erythrocyte distribution wid th standard deviationOrdered By: Grady Glez on 05-24-2023 Erythrocyte distribution width (RBC) [Entitic vol] 39.0 fL 35.1-43.9 [facility] Hematocrit Auto (Bld) [Volum e fraction]Ordered By: Grady Glez on 05-24-2023 Hematocrit (Bld) [Volume fraction] 41.8 % 40-54 [facility] Immature granulocytes/100 WB C Auto (Bld)Ordered By: Grady Glze on 05-24-2023 Immature granulocytes/100 WBC (Bld) 0.100 % 0.0-0.9 [facility] Comment on above: IG% - Immature Granu locytes (promyelocytes, myelocytes and metamyelocytes) > 1% indicates that a LEFT SHIFT is Present. Ketones Test strip Ql (U)Ord ered By: Grady Glez on 05-24-2023 Ketones Ql (U) 5 mg/dl Negative [facility] - Chemistry and C hemistry - challengeOrdered By: Grady Glez on 05-24-2023 CO2 [Moles/Vol] 29.0 mmol/L 21.0-32.0 [facility] Urea nitrogen/Creatinine [Mass ratio] 24.4 mg/mg 10-20 [facility] - Hematology and Cell countsOrdered By: Grady Glez on 05-24-2023 MCH (RBC) [Entitic mass] 28.9 pg 27.0-32.0 [facility] MCHC (RBC) [Mass/Vol] 33.0 g/dL 32-36 [facility] Nucleated RBC/100 WBC (Bld) [Ratio] 0 % 0-5 [facility] Platelets (Bld) [#/Vol] 200 10*3/uL 150-450 [facility] Mucus LM Ql (Urine sed)Order ed By: Grady Glez on 05-24-2023 Mucus Ql (Urine sed) 0 SEEN /hpf [facility] Nitrite Test strip Ql (U)Ord ered By: Grady Glez on 05-24-2023 Nitrite Ql (U) Negative Negative [facility] No Panel InformationOrdered By: Grady Glez on 05-24-2023 Estimated Creatinine Clearance Calc 151.97 ml/min [facility] Estimated GFR (MDRD) Amer 123 mL/min >60 [facility] Comment on above: GFR Calc Estimated GFR (MDRD) Non-Af Amer 101 mL/min >60 [facility] Comment on above: Non- GFR Calc Urine RBC 0 SEEN /hpf 0-5 [facility] Platelet mean volume [place] (Bld) [Entitic vol]Ordered By: Grady Glez on 05-24-2023 Platelet mean volume (Bld) [Entitic vol] 10.0 fL 6.2-12.0 [facility] Protein Test strip Ql (U)Ord ered By: Grady Glez on 05-24-2023 Protein Ql (U) Negative Negative [facility] RBC Auto (Bld) [#/Vol]Ordere d By: Grady Glez on 05-24-2023 RBC (Bld) [#/Vol] 4.77 10*6/uL 4.6-6.2 [facility] Serum or plasma calcium david urement (mass/volume)Ordered By: Grady Glez on 05-24-2023 Calcium [Mass/Vol] 9.1 mg/dL 8.5-10.1 [facility] Serum or plasma creatinine m easurement (mass/volume)Ordered By: Grady Glez on 05-24-2023 Creatinine [Mass/Vol] 0.86 mg/dL 0.70-1.30 [facility] Comment on above: The validity of the calculated GFR & GFRAA in patients over 70 years has not been determined. Clinical correlation is essential. Serum or plasma urea nitroge n measurement (mass/volume)Ordered By: Grady Glez on 05-24-2023 Urea nitrogen [Mass/Vol] 21 mg/dL 7-18 [facility] Squamous epithelial cells de tection in urine sediment by light microscopyOrdered By: Grady Glez on 05-24-2023 Epithelial cells.squamous LM Ql (Urine sed) 0 SEEN /hpf 0-5 [facility] Thin prep Papanicolaou smear with manual screeningOrdered By: Grady Glez on 05-24-2023 Thin prep Papanicolaou smear with manual screening 3 5-15 [facility] Urinalysis, Completeon 05-24 BACTERIA 0 SEEN Normal None Seen [facility] Comment on above: Order Comment: CLEAN CATCH Performed By: #### L 400.0001 #### [facility] [address] [place], [place], [id number] EPI,SQUAMOUS 0 SEEN Normal 0-5 [facility] Comment on above: Order Comment: CLEAN CATCH Performed By: #### L 400.0001 #### [facility] [address] [place], [place], [id number] Mucus Ql (Urine sed) 0 SEEN Normal [facility] Comment on above: Order Comment: CLEAN CATCH Performed By: #### L 400.0001 #### [facility] [address] [place], [address] RBC 0 SEEN Normal 0-5 [facility] Comment on above: Order Comment: CLEAN CATCH Performed By: #### L 400.0001 #### [facility] [address] [place], [address] WBC 0 SEEN Normal 0-5 [facility] Comment on above: Order Comment: CLEAN CATCH Performed By: #### L 400.0001 #### [facility] [address] [place], [address] Urine blood detectionOrdered By: Grady Glez on 05-24-2023 RBC Ql (U) Negative Negative [facility] Urine clarityOrdered By: Yenni Glez on 05-24-2023 Clarity (U) Clear Clear [facility] Urine color determinationOrd ered By: Grady Glez on 05-24-2023 Color (U) Yellow Yellow [facility] Urine glucose detectionOrder ed By: Grady Glez on 05-24-2023 Glucose Ql (U) Normal mg/dl Normal [facility] Urine leukocyte esterase det ection by dipstickOrdered By: Grady Glez on 05-24-2023 Leukocyte esterase Test strip Ql (U) Negative Negative [facility] Urine pHOrdered By: Grady mackey on 05-24-2023 pH (U) 7.0 [pH] 5.0 - 8.0 [facility] Urine sediment bacteria coun t by microscopy (number/high power field)Ordered By: Grady Glez on 05-24-2023 Bacteria LM.HPF (Urine sed) [#/Area] 0 /[HPF] None Seen [facility] Urine specific gravity measu rementOrdered By: Grady Glez on 05-24-2023 Specific gravity (U) [Rel density] 1.015 1.002-1.030 [facility] Urine urobilinogen measureme ntOrdered By: Grady Glez on 05-24-2023 Urobilinogen Ql (U) 1 mg/dl Normal [facility] Culture, Wound Aerobicon Culture, Wound Aerobic Gram Stain Specim en-: Gram stain performed from swab, interpret results with caution. Swab specimens of sterile fluids are inferior to aspirate specimens for organism recovery. Rare Polymorphonuclear leukocytes Epithelial cells not seen No organisms seen Culture, Wound Aerobic-: Staphylococcus aureus Heavy growth Methicillin resistant Staph aureus isolated. Most Methicillin resistant Staphylococcus are usually resistant to multiple antibiotics including other B-Lactams, Aminoglycosides, Macrolides, Clindamycin and Tetracycline. Contact isolation is indicated. ------- ORGANISM: Staphylococcus aureus ANTIBIOTIC INTERPRETATION M.I.C. STATUS [ S = SUSCEPTIBLE R = RESISTANT I = INTERMEDIATE ] ------- Clindamycin R >=4 F Daptomycin S 0.25 F Doxycycline S <=0.5 F Erythromycin R >=8 F Gentamicin S <=0.5 F Oxacillin R >=4 F Tigecycline S <=0.12 F Trimethoprim/Sulfametho xazole S <=10 F Vancomycin S <=0.5 F Normal [facility] XR WRIST LEFT (MIN 3 VIEWS)o n 02-06-2022 XR WRIST LEFT (MIN 3 VIEWS) EXAMINATION: XRAY VIEWS OF THE LEFT WRIST 02/06/2022 1:45 pm COMPARISON: None. HISTORY: ORDERING SYSTEM PROVIDED HISTORY: Pain TECHNOLOGIST PROVIDED HISTORY: What reading provider will be dictating this exam?->CRC FINDINGS: There are severe arthritic changes at the radiocarpal junction and joint space narrowing. Small corticated density noted on the radial side likely from old injury or chronic inflammatory changes. There are no acute fractures or dislocations. Mild soft tissue swelling. IMPRESSION: No evidence of acute bony abnormalities. Severe arthritis, radiocarpal junction. Interpreted by: Hieu Escobar MD Signed by: Hieu Escobar MD 02/06/22 Final result Normal [facility] Comment on above: Order Comment: What reading provider will be dictating this exam?->CRC No evidence of acute bony abnormalities. Severe arthritis, radiocarpal junction. [facility] EXAMINATION: XRAY VIEWS OF THE LEFT WRIST 02/06/2022 1:45 pm COMPARISON: None. HISTORY: ORDERING SYSTEM PROVIDED HISTORY: Pain TECHNOLOGIST PROVIDED HISTORY: What reading provider will be dictating this exam?->CRC FINDINGS: There are severe arthritic changes at the radiocarpal junction and joint space narrowing. Small corticated density noted on the radial side likely from old injury or chronic inflammatory changes. There are no acute fractures or dislocations. Mild soft tissue swelling. [facility] Hieu Escobar MD - 02/06/2022 EXAMINATION: XRAY VIEWS OF THE LEFT WRIST 02/06/2022 1:45 pm COMPARISON: None. HISTORY: ORDERING SYSTEM PROVIDED HISTORY: Pain TECHNOLOGIST PROVIDED HISTORY: What reading provider will be dictating this exam?->CRC FINDINGS: There are severe arthritic changes at the radiocarpal junction and joint space narrowing. Small corticated density noted on the radial side likely from old injury or chronic inflammatory changes. There are no acute fractures or dislocations. Mild soft tissue swelling. IMPRESSION: No evidence of acute bony abnormalities. Severe arthritis, radiocarpal junction. Crunched Phone: Radiology Study observation (narrative) Crunched Phone: XR WRIST LEFT (MIN 3 VIEWS)O rdered By: Hieu Escobar on 02-06-2022 Crunched Phone: HCV by Quant NAATon 11-30-19 HCV Qnt by NAAT Interp Not detected Normal Not Detected [facility] Comment on above: Result Comment: INTE RPRETIVE INFORMATION: HCV by Quantitative NAAT Normal range for this assay is Not Detected. The quantitative range of this assay is 10 - 100,000,000 IU/mL (1.0 - 8.0 log IU/mL). Lower limit of quantitation (LLoQ): 10 IU/mL (1.0 log IU/mL) LLoQ values do not apply to diluted specimens. A result of Not Detected does not rule out the presence of inhibitors in the patient specimen or hepatitis C virus RNA concentrations below the level of detection of the test. Care should be taken when interpreting any single viral load determination. This test should not be used for blood donor screening, associated re-entry protocols, or for screening Human Cell, Tissues and Cellular Tissue-Based Products (HCT/P). Performed by [employer] [address] [place], [place] [id number] [email or web address] Herberth Viera MD, PHD - Lab. Director Performed By: #### B [id number] #### [facility] [address] [place] [address] HCV Qnt by NAAT IU/mL Not detected Normal [facility] Comment on above: Performed By: #### B [id number] #### [facility] [address] [place] [address] HCV Qnt by NAAT log IU/mL Not detected Normal [facility] Comment on above: Performed By: #### B [id number] #### [facility] [address] [place] [id number] Chlamydia, GC DNA Amp, Urine on 11-03-2021 Chlamydia trachomatis DNA, Urine Negative Normal NEG [facility] Comment on above: Result Comment: CHLA MYDIA TRACHOMATIS DNA not detected by nucleic acid amplification. This test is intended for medical purposes only and is not valid for the evaluation of suspected sexual abuse or for other forensic purposes. In certain contexts, culture may be required to meet applicable laws and regulations for diagnosis of C. trachomatis and N. gonorrhoeae infections. Per 2014 CDC recommendations, this test does not include confirmation of positive results by an alternative nucleic acid target. Neisseria gonorrhoeae DNA, Urine Negative Normal NEG [facility] Comment on above: Result Comment: NEIS SERIA GONORRHOEAE DNA not detected by nucleic acid amplification. This test is intended for medical purposes only and is not valid for the evaluation of suspected sexual abuse or for other forensic purposes. In certain contexts, culture may be required to meet applicable laws and regulations for diagnosis of C. trachomatis and N. gonorrhoeae infections. Per 2014 CDC recommendations, this test does not include confirmation of positive results by an alternative nucleic acid target. [facility] [address] [place] [address] HIV 1/O/2on 11-01-2021 HIV 1/O/2 Interp Non-Reactive Normal Non-Reactiv e [facility] Hepatitis Acute Panelon 10-21 Hepatitis A Ab (IgM) Interp Non-Reactive Normal Non-Reactiv e [facility] Hepatitis B Core Ab IgM Interp Non-Reactive Normal Non-Reactiv e [facility] Hepatitis C Antibody Interp Reactive Abnormal Non-Reactiv e [facility] Hepatitis B Surface Ag Interp Non-Reactive Normal Non-Reactiv e [facility] CBC With Platelet and Differ entialon 10-31-2021 Abs Imm Granulocytes 0.01 E9/L Normal [facility] Absolute Basophils 0.05 E9/L Normal 0.00-0.20 [facility] Absolute Eosinophils 0.13 E9/L Normal 0.05-0.50 [facility] Absolute Lymphocytes 3.14 E9/L Normal 1.50-4.00 [facility] Absolute Monocytes 0.51 E9/L Normal 0.10-0.95 [facility] Absolute Neutrophils 2.33 E9/L Normal 1.80-7.30 [facility] Basophils/100 WBC (Bld) 0.8 % Normal 0.0-2.0 [facility] Eosinophils/100 WBC (Bld) 2.1 % Normal 0.0-6.0 [facility] Hematocrit (Bld) [Volume fraction] 42.4 % Normal 37.0-54.0 [facility] Hemoglobin (Bld) [Mass/Vol] 14.4 g/dL Normal 12.5-16.5 [facility] Imm Granulocytes 0.2 % Normal 0.0-5.0 [facility] Lymphocytes/100 WBC (Bld) 50.9 % High 20.0-42.0 [facility] MCH (RBC) [Entitic mass] 28.8 pg Normal 26.0-35.0 [facility] MCHC 34.0 % Normal 32.0-34.5 [facility] MCV (RBC) [Entitic vol] 84.8 fL Normal 80.0-99.9 [facility] Monocytes/100 WBC (Bld) 8.3 % Normal 2.0-12.0 [facility] Neutrophils/100 WBC (Bld) 37.7 % Low 43.0-80.0 [facility] Platelet Count 209 E9/L Normal 130-450 [facility] Platelet mean volume (Bld) [Entitic vol] 10.2 fL Normal 7.0-12.0 [facility] RBC 5.00 E12/L Normal 3.80-5.80 [facility] RDW 13.0 fL Normal 11.5-15.0 [facility] WBC 6.2 E9/L Normal 4.5-11.5 [facility] CBC with Auto Differentialon 10-31-2021 Basophils (Bld) [#/Vol] 0.05 10*3/uL [facility] Basophils/100 WBC (Bld) 0.8 % 0.0 - 2.0 % [facility] Eosinophils Absolute 0.13 [facility] Eosinophils/100 WBC (Bld) 2.1 % 0.0 - 6.0 % [facility] Hematocrit (Bld) [Volume fraction] 42.4 % 37.0 - 54.0 % [facility] Hemoglobin (Bld) [Mass/Vol] 14.4 g/dL 12.5 - 16.5 g/dL [facility] Immature Granulocytes # 0.01 E9/L [facility] Immature granulocytes/100 WBC (Bld) 0.2 % 0.0 - 5.0 % [facility] Interpretation and review of laboratory results Abnormal [facility] Lymphocytes Absolute 3.14 [facility] Lymphocytes/100 WBC (Bld) 50.9 % High 20.0 - 42.0 % [facility] MCH (RBC) [Entitic mass] 28.8 pg 26.0 - 35.0 pg [facility] [facility] MCHC (RBC) [Mass/Vol] 34.0 % 32.0 - 34.5 % [facility] MCV (RBC) [Entitic vol] 84.8 fL 80.0 - 99.9 fL [facility] Monocytes Absolute 0.51 [facility] Monocytes/100 WBC (Bld) 8.3 % 2.0 - 12.0 % [facility] Neutrophils Absolute 2.33 [facility] Neutrophils/100 WBC (Bld) 37.7 % Low 43.0 - 80.0 % [facility] Platelet distribution width (Bld) [Ratio] 13.0 fL 11.5 - 15.0 fL [facility] Platelet mean volume (Bld) [Entitic vol] 10.2 fL 7.0 - 12.0 fL [facility] Platelets (Bld) [#/Vol] 209 10*3/uL [facility] RBC (Bld) [#/Vol] 5.00 10*6/uL [facility] WBC (Bld) [#/Vol] 6.2 10*3/uL [facility] Chlamydia, GC DNA Amp, Urine on 10-31-2021 Source Urine Urine Normal [facility] Comprehensive Metabolic Pane carlito 10-31-2021 Albumin [Mass/Vol] 4.3 g/dL Normal 3.5-5.2 [facility] ALP [Catalytic activity/Vol] 86 U/L Normal 40-129 [facility] ALT [Catalytic activity/Vol] 22 U/L Normal 0-40 [facility] Anion gap [Moles/Vol] 16 mmol/L Normal 7-16 [facility] AST [Catalytic activity/Vol] 16 U/L Normal 0-39 [facility] Bilirubin [Mass/Vol] mg/dL Normal 0.0-1.2 [facility] Calcium [Mass/Vol] 9.0 mg/dL Normal 8.6-10.2 [facility] Chloride [Moles/Vol] 102 mmol/L Normal 98-107 [facility] CO2 [Moles/Vol] 19 mmol/L Low 22-29 [facility] Creatinine [Mass/Vol] 0.8 mg/dL Normal 0.7-1.2 [facility] GFR Calculated >60 Normal >=60 [facility] Comment on above: Result Comment: Employment Representative adrianna Kidney Disease: less than 60 ml/min/1.73 sq.m. Kidney Failure: less than 15 ml/min/1.73 sq.m. Results valid for patients 18 years and older. GFR/1.73 sq M.predicted among blacks MDRD (S/P/Bld) [Vol rate/Area] mL/min/{1.73_m2} Normal [facility] Glucose [Mass/Vol] 110 mg/dL High 74-99 [facility] Potassium [Moles/Vol] 3.9 mmol/L Normal 3.5-5.0 [facility] Protein [Mass/Vol] 6.6 g/dL Normal 6.4-8.3 [facility] Sodium [Moles/Vol] 137 mmol/L Normal 132-146 [facility] Urea nitrogen [Mass/Vol] 14 mg/dL Normal 6-20 [facility] Albumin [Mass/Vol] 4.3 g/dL 3.5 - 5.2 g/dL [facility] ALP (Bld) [Catalytic activity/Vol] 86 U/L 40 - 129 U/L [facility] ALT [Catalytic activity/Vol] 22 U/L 0 - 40 U/L [facility] Anion gap [Moles/Vol] 16 mmol/L 7 - 16 mmol/L [facility] AST [Catalytic activity/Vol] 16 U/L 0 - 39 U/L [facility] Bilirubin [Mass/Vol] mg/dL 0.0 - 1 .2 mg/dL [facility] Calcium [Mass/Vol] 9.0 mg/dL 8.6 - 10. 2 mg/dL [facility] Chloride [Moles/Vol] 102 mmol/L 98 - 10 7 mmol/L [facility] CO2 [Moles/Vol] 19 mmol/L Low 22 - 29 mmol/L [facility] Creatinine [Mass/Vol] 0.8 mg/dL 0.7 - 1.2 mg/dL [facility] Free PSA/Total PSA [Mass fraction] 6.6 g/dL 6.4 - 8.3 g/dL [facility] GFR >60 [facility] GFR Non- >60 >=60 mL/min/1.73 [facility] Comment on above: Chronic Kidney Disea se: less than 60 ml/min/1.73 sq.m. Kidney Failure: less than 15 ml/min/1.73 sq.m. Results valid for patients 18 years and older. Glucose [Mass/Vol] 110 mg/dL High 74 - 99 mg/dL [facility] Interpretation and review of laboratory results Abnormal [facility] Potassium [Moles/Vol] 3.9 mmol/L 3.5 - 5.0 mmol/L [facility] Sodium [Moles/Vol] 137 mmol/L 132 - 146 mmol/L [facility] Urea nitrogen (BldV) [Mass/Vol] 14 mg/dL 6 - 20 mg/dL [facility] TSHon 10-31-2021 TSH Qn 1.400 m[IU]/L [facility] TSH w/out Reflexon 2 TSH w/out Reflex 1.400 uIU/mL Normal 0.270-4.200 [facility] Urinalysison 10-31-2021 Bilirubin Urine Negative Negative [facility] Blood, Urine Negative Negative [facility] Clarity, UA Clear Clear [facility] Color, UA Yellow Straw/Yello w [facility] Glucose, Ur Negative Negative mg/dL [facility] Ketones Ql (U) Negative Negative mg/dL [facility] Leukocyte esterase Test strip Ql (U) Negative Negative [facility] Nitrite, Urine Negative Negative [facility] pH, UA 5.0 [facility] Protein, UA Negative Negative mg/dL [facility] Specific [place], UA >=1.030 [facility] Urobilinogen, Urine 0.2 <2.0 E.U./dL [facility] Urinalysis, reflex to micros copicon 10-31-2021 Bilirubin Ql (U) Negative Normal Negative [facility] Clarity (U) Clear Normal Clear [facility] Color (U) Yellow Normal Straw/Yello w [facility] Glucose Ql (U) Negative Normal Negative [facility] Hemoglobin Ql (U) Negative Normal Negative [facility] Ketones Ql (U) Negative Normal Negative [facility] Leukocyte esterase Test strip Ql (U) Negative Normal Negative [facility] Nitrite Ql (U) Negative Normal Negative [facility] pH (U) 5.0 [pH] Normal 5.0-9.0 [facility] Protein Ql (U) Negative Normal Negative [facility] Specific gravity (U) [Rel density] >=1.030 Normal 1.005-1.030 [facility] Urobilinogen Qn (U) 0.2 {Tracey'U}/dL Normal < 2.0 [facility] Absolute lymphocyte counton 09-06-2021 Lymphocytes Auto (Unsp spec) [#/Vol] 1.74 10*3/uL 0.83-4.51 [facility] Work Phone: Basophil percentageon 2021 Basophils/100 WBC (Bld) 0.4 % 0-1 [facility] Work Phone: Bilirubin [Mass/Vol] 0.40 mg/dL 0.20-1.00 [facility] Work Phone: Comment on above: For patients on eltr ombopag therapy, use of Dim[place] TBIL is not recommended. Chloride [Moles/Vol] 104 mmol/L 98-107 [facility] Work Phone: Eosinophils/100 WBC (Bld) 0.4 % 0-5 [facility] Work Phone: Glucose [Mass/Vol] 116 mg/dL 74-106 [facility] Work Phone: [phone] Comment on above: Fasting Glucose resu lt from 100 to 125 mg/dL suggests IMPAIRED HOMEOSTASIS per A.D.A. criteria. Neutrophils (Bld) [#/Vol] 5.1 10*3/uL 2.0-7.7 [facility] Work Phone: Neutrophils/100 WBC (Bld) 69.6 % 47-70 [facility] Work Phone: [phone] Potassium [Moles/Vol] 3.7 mmol/L 3.5-5.1 [facility] Work Phone: [phone] Protein [Mass/Vol] 7.4 g/dL 6.4-8.2 [facility] Work Phone: [phone] Sodium [Moles/Vol] 136 mmol/L 136-145 [facility] Work Phone: [phone] WBC (Bld) [#/Vol] 7.4 10*3/uL 4.4-11.0 [facility] Work Phone: [phone] Blood erythrocytes count (nu mber/volume)on 09-06-2021 RBC (Bld) [#/Vol] 5.60 10*6/uL 4.6-6.2 [facility] Work Phone: [phone] Blood hemoglobin measurement (mass/volume)on 09-06-2021 Hemoglobin (Bld) [Mass/Vol] 16.0 g/dL 13.0-16.5 [facility] Work Phone: Blood lymphocytes/100 leukoc yteson 09-06-2021 Lymphocytes/100 WBC (Bld) 23.6 % 19-41 [facility] Work Phone: Blood monocytes/100 leukocyt eson 09-06-2021 Monocytes/100 WBC (Bld) 5.7 % 0-10 [facility] Work Phone: Blood platelet mean volumeon 09-06-2021 Platelet mean volume (Bld) [Entitic vol] 9.7 fL 6.2-12.0 [facility] Work Phone: Determination of erythrocyte mean corpuscular volume (MCV)on 09-06-2021 MCV (RBC) [Entitic vol] 84.1 fL 80-94 [facility] Work Phone: [phone] Hematocrit Auto (Bld) [Volum e fraction]on 09-06-2021 Hematocrit (Bld) [Volume fraction] 47.1 % 40-54 [facility] Work Phone: Laboratory - Chemistry and C hemistry - challengeon 09-06-2021 ALP [Catalytic activity/Vol] 79 U/L 45-117 [facility] Work Phone: ALT [Catalytic activity/Vol] 19 U/L 16-61 [facility] Work Phone: [phone] CO2 [Moles/Vol] 25.0 mmol/L 21.0-32.0 [facility] Work Phone: Globulin (S) [Mass/Vol] 3.5 g/dL 2.2-4.2 [facility] Work Phone: [phone] Magnesium [Mass/Vol] 1.8 mg/dL 1.6-2.6 [facility] Work Phone: Urea nitrogen/Creatinine [Mass ratio] 11.9 mg/mg 10-20 [facility] Work Phone: Laboratory - Drug toxicology on 09-06-2021 Amphetamines Ql (U) Negative [facility] Work Phone: Benzodiazepines Ql (U) Negative [facility] Work Phone: Cannabinoids Screen Ql (U) Negative [facility] Work Phone: Cocaine Ql (U) Negative [facility] Work Phone: Opiates Ql (U) Negative [facility] Work Phone: Laboratory - Hematology and Cell countson 09-06-2021 Erythrocyte distribution width (RBC) [Entitic vol] 36.4 fL 35.1-43.9 [facility] Work Phone: Erythrocyte distribution width (RBC) [Ratio] 12.1 % 11.6-14.6 [facility] Work Phone: Immature granulocytes/100 WBC (Bld) 0.300 % 0.0-0.9 [facility] Work Phone: Comment on above: IG% - Immature Granu locytes (promyelocytes, myelocytes and metamyelocytes) > 1% indicates that a LEFT SHIFT is Present. MCH (RBC) [Entitic mass] 28.6 pg 27.0-32.0 [facility] Work Phone: Nucleated RBC/100 WBC (Bld) [Ratio] 0 % 0-5 [facility] Work Phone: MCHC Auto (RBC) [Mass/Vol]on 09-06-2021 MCHC (RBC) [Mass/Vol] 34.0 g/dL 32-36 [facility] Work Phone: No Panel Informationon 09-06 MDMA (Ecstasy) Screen Negative [facility] Work Phone: Urine Barbiturates Screen Negative [facility] Work Phone: Urine Drug Screen Comment [facility] Work Phone: Comment on above: CONFIRMATORY TESTING FOR ALL POSITIVE URINE DRUG SCREENRESULTS WILL ONLY BE SENT OUT UPON PHYSICIAN ORDER. VISTA Urine Drug Screen methods provide only preliminaryanalytical test results. A more specific alternate chemicalmethod must be used in order to obtain a confirmedanalytical result. Gas chromatography/mass spectrometery(GC/MS) is the preferred confirmatory method. Clinicalconsideration and professional judgement should be appliedto any drug of abuse test result, particularly whenpreliminary positive results are used. URINE TCA TESTING MUST BE ORDERED SEPARATELY. USE TESTMNEMONIC: [facility] Urine Methadone Screen Negative [facility] Work Phone: Estimated Creatinine Clearance Calc 175.47 ml/min [facility] Work Phone: Estimated GFR (MDRD) Amer 164 mL/min >60 [facility] Work Phone: Comment on above: GFR Calc Estimated GFR (MDRD) Non-Af Amer 136 mL/min >60 [facility] Work Phone: Comment on above: Non- GFR Calc Ethyl Alcohol Level < 3.0 mg/dL [facility] Work Phone: Comment on above: The serum:whole bloo d ethanol ratio is approximately 1.14and varies slightly with hematocrit. Medical Alcohol reference interval and critical value innon-tolerant individuals; 50 - 100 Impairment 100 Intoxication 100 - 250 Severe Poisoning 250 - 400 Deep/possible fatal coma Platelets bldon 09-06-2021 Platelets (Bld) [#/Vol] 216 10*3/uL 150-450 [facility] Work Phone: Serum or plasma albumin david urement (mass/volume)on 09-06-2021 Albumin [Mass/Vol] 3.9 g/dL 3.2-5.0 [facility] Work Phone: Serum or plasma albumin/glob ulin mass ratioon 09-06-2021 Albumin/Globulin [Mass ratio] 1.1 {ratio} 0.9-2.4 [facility] Work Phone: Serum or plasma calcium david urement (mass/volume)on 09-06-2021 Calcium [Mass/Vol] 9.3 mg/dL 8.5-10.1 [facility] Work Phone: Serum or plasma creatinine m easurement (mass/volume)on 09-06-2021 Creatinine [Mass/Vol] 0.67 mg/dL 0.70-1.30 [facility] Work Phone: Comment on above: The validity of the calculated GFR & GFRAA in patients over 70 years has not been determined. Clinical correlation is essential. Serum or plasma urea nitroge n measurement (mass/volume)on 09-06-2021 Urea nitrogen [Mass/Vol] 8 mg/dL 7-18 [facility] Work Phone: Thin prep Papanicolaou smear with manual screeningon 09-06-2021 Thin prep Papanicolaou smear with manual screening 9 U/L 15-37 [facility] Work Phone: Thin prep Papanicolaou smear with manual screening 7 5-15 [facility] Work Phone: Urine phencyclidine (PCP) de tectionon 09-06-2021 Phencyclidine Ql (U) Negative [facility] Work Phone: Absolute lymphocyte counton 07-18-2021 Lymphocytes Auto (Unsp spec) [#/Vol] 1.28 10*3/uL 0.83-4.51 [facility] Work Phone: Basophil percentageon 2021 Basophils/100 WBC (Bld) 0.4 % 0-1 [facility] Work Phone: Bilirubin [Mass/Vol] 0.40 mg/dL 0.20-1.00 [facility] Work Phone: Comment on above: For patients on eltr ombopag therapy, use of [place] TBIL is not recommended. Chloride [Moles/Vol] 106 mmol/L 98-107 [facility] Work Phone: Eosinophils/100 WBC (Bld) 0.8 % 0-5 [facility] Work Phone: Glucose [Mass/Vol] 118 mg/dL 74-106 [facility] Work Phone: Comment on above: Fasting Glucose resu lt from 100 to 125 mg/dL suggests IMPAIRED HOMEOSTASIS per A.D.A. criteria. Neutrophils (Bld) [#/Vol] 5.6 10*3/uL 2.0-7.7 [facility] Work Phone: Neutrophils/100 WBC (Bld) 74.0 % 47-70 [facility] Work Phone: Potassium [Moles/Vol] 4.1 mmol/L 3.5-5.1 [facility] Work Phone: Protein [Mass/Vol] 7.2 g/dL 6.4-8.2 [facility] Work Phone: Sodium [Moles/Vol] 139 mmol/L 136-145 [facility] Work Phone: WBC (Bld) [#/Vol] 7.5 10*3/uL 4.4-11.0 [facility] Work Phone: Blood erythrocytes count (nu mber/volume)on 07-18-2021 RBC (Bld) [#/Vol] 4.92 10*6/uL 4.6-6.2 [facility] Work Phone: Blood hemoglobin measurement (mass/volume)on 07-18-2021 Hemoglobin (Bld) [Mass/Vol] 14.3 g/dL 13.0-16.5 [facility] Work Phone: Blood lymphocytes/100 leukoc yteson 07-18-2021 Lymphocytes/100 WBC (Bld) 17.0 % 19-41 [facility] Work Phone: [phone] Blood monocytes/100 leukocyt eson 07-18-2021 Monocytes/100 WBC (Bld) 7.4 % 0-10 [facility] Work Phone: Blood platelet mean volumeon 07-18-2021 Platelet mean volume (Bld) [Entitic vol] 9.6 fL 6.2-12.0 [facility] Work Phone: Determination of erythrocyte mean corpuscular volume (MCV)on 07-18-2021 MCV (RBC) [Entitic vol] 87.4 fL 80-94 [facility] Work Phone: Hematocrit Auto (Bld) [Volum e fraction]on 07-18-2021 Hematocrit (Bld) [Volume fraction] 43.0 % 40-54 [facility] Work Phone: Laboratory - Chemistry and C hemistry - challengeon 07-18-2021 ALP [Catalytic activity/Vol] 80 U/L 45-117 [facility] Work Phone: ALT [Catalytic activity/Vol] 30 U/L 16-61 [facility] Work Phone: CO2 [Moles/Vol] 26.0 mmol/L 21.0-32.0 [facility] Work Phone: Globulin (S) [Mass/Vol] 3.8 g/dL 2.2-4.2 [facility] Work Phone: Urea nitrogen/Creatinine [Mass ratio] 13.7 mg/mg 10-20 [facility] Work Phone: Laboratory - Drug toxicology on 07-18-2021 Amphetamines Ql (U) Negative [facility] Work Phone: Benzodiazepines Ql (U) Negative [facility] Work Phone: Cannabinoids Screen Ql (U) Negative [facility] Work Phone: Cocaine Ql (U) Negative [facility] Work Phone: Opiates Ql (U) Negative [facility] Work Phone: Laboratory - Hematology and Cell countson 07-18-2021 Erythrocyte distribution width (RBC) [Entitic vol] 39.3 fL 35.1-43.9 [facility] Work Phone: Erythrocyte distribution width (RBC) [Ratio] 12.3 % 11.6-14.6 [facility] Work Phone: Immature granulocytes/100 WBC (Bld) 0.400 % 0.0-0.9 [facility] Work Phone: Comment on above: IG% - Immature Granu locytes (promyelocytes, myelocytes and metamyelocytes) > 1% indicates that a LEFT SHIFT is Present. MCH (RBC) [Entitic mass] 29.1 pg 27.0-32.0 [facility] Work Phone: Nucleated RBC/100 WBC (Bld) [Ratio] 0 % 0-5 [facility] Work Phone: MCHC Auto (RBC) [Mass/Vol]on 07-18-2021 MCHC (RBC) [Mass/Vol] 33.3 g/dL 32-36 [facility] Work Phone: No Panel Informationon 07-18 MDMA (Ecstasy) Screen Positive [facility] Work Phone: Urine Barbiturates Screen Negative [facility] Work Phone: Urine Drug Screen Comment [facility] Work Phone: Comment on above: CONFIRMATORY TESTING FOR ALL POSITIVE URINE DRUG SCREENRESULTS WILL ONLY BE SENT OUT UPON PHYSICIAN ORDER. VISTA Urine Drug Screen methods provide only preliminaryanalytical test results. A more specific alternate chemicalmethod must be used in order to obtain a confirmedanalytical result. Gas chromatography/mass spectrometery(GC/MS) is the preferred confirmatory method. Clinicalconsideration and professional judgement should be appliedto any drug of abuse test result, particularly whenpreliminary positive results are used. URINE TCA TESTING MUST BE ORDERED SEPARATELY. USE TESTMNEMONIC: [facility] Urine Methadone Screen Negative [facility] Work Phone: Estimated Creatinine Clearance Calc 103.55 ml/min [facility] Work Phone: Estimated GFR (MDRD) Amer 149 mL/min >60 [facility] Work Phone: Comment on above: GFR Calc Estimated GFR (MDRD) Non-Af Amer 123 mL/min >60 [facility] Work Phone: Comment on above: Non- GFR Calc Ethyl Alcohol Level < 3.0 mg/dL [facility] Work Phone: Comment on above: The serum:whole bloo d ethanol ratio is approximately 1.14and varies slightly with hematocrit. Medical Alcohol reference interval and critical value innon-tolerant individuals; 50 - 100 Impairment 100 Intoxication 100 - 250 Severe Poisoning 250 - 400 Deep/possible fatal coma Platelets bldon 07-18-2021 Platelets (Bld) [#/Vol] 201 10*3/uL 150-450 [facility] Work Phone: Serum or plasma albumin david urement (mass/volume)on 07-18-2021 Albumin [Mass/Vol] 3.4 g/dL 3.2-5.0 [facility] Work Phone: Serum or plasma albumin/glob ulin mass ratioon 07-18-2021 Albumin/Globulin [Mass ratio] 0.9 {ratio} 0.9-2.4 [facility] Work Phone: Serum or plasma calcium david urement (mass/volume)on 07-18-2021 Calcium [Mass/Vol] 9.0 mg/dL 8.5-10.1 [facility] Work Phone: Serum or plasma creatinine m easurement (mass/volume)on 07-18-2021 Creatinine [Mass/Vol] 0.73 mg/dL 0.70-1.30 [facility] Work Phone: Comment on above: The validity of the calculated GFR & GFRAA in patients over 70 years has not been determined. Clinical correlation is essential. Serum or plasma urea nitroge n measurement (mass/volume)on 07-18-2021 Urea nitrogen [Mass/Vol] 10 mg/dL 7-18 [facility] Work Phone: Thin prep Papanicolaou smear with manual screeningon 07-18-2021 Thin prep Papanicolaou smear with manual screening 12 U/L 15-37 [facility] Work Phone: Thin prep Papanicolaou smear with manual screening 7 5-15 [facility] Work Phone: Urine phencyclidine (PCP) de tectionon 07-18-2021 Phencyclidine Ql (U) Negative [facility] Work Phone: Hepatitis B Surface Antibody on 06-02-2019 HBV surface Ab (S) [Titer] REACTIVE NON REACT [facility] Work Phone: Hepatitis B Surface Antigeno n 06-02-2019 Hep B S Ag Interp Non-Reactive NON REACT [facility] Work Phone: Hepatitis C Antibodyon 06-02 Hep C Ab Interp REACTIVE Abnormal NON REACT [employer] [facility] Work Phone: Interpretation and review of laboratory results Abnormal [employer] Phone: CBC auto differentialOrdered By: Edmundo Galvan on 04-23-2019 Basophils (Bld) [#/Vol] 0.05 10*3/uL [employer] Work Phone: Basophils/100 WBC (Bld) 0.5 % 0 - 2 % [employer] Work Phone: Eosinophils Absolute 0.17 [employer] Work Phone: Eosinophils/100 WBC (Bld) 1.8 % 0 - 6 % [employer] Work Phone: Hematocrit (Bld) [Volume fraction] 50.1 % 37 - 54 % [employer] Work Phone: Hemoglobin (Bld) [Mass/Vol] 16.0 g/dL 12.5 - 16.5 g/dL [employer] Phone: Immature Granulocytes # 0.03 E9/L [employer] Phone: Immature granulocytes/100 WBC (Bld) 0.3 % 0 - 5 % [employer] Phone: Interpretation and review of laboratory results Abnormal [employer] Phone: Lymphocytes Absolute 3.25 [employer] Work Phone: Lymphocytes/100 WBC (Bld) 35.2 % 20 - 42 % [employer] Phone: MCH (RBC) [Entitic mass] 26.9 pg 26 - 35 pg [employer] Work Phone: MCHC 31.9 % Low 32 - 34.5 % [employer] Phone: MCV (RBC) [Entitic vol] 84.2 fL 80 - 99.9 fL [employer] Work Phone: Monocytes Absolute 0.82 [employer] Phone: Monocytes/100 WBC (Bld) 8.9 % 2 - 12 % [employer] Work Phone: Neutrophils Absolute 4.92 [employer] Phone: Neutrophils/100 WBC (Bld) 53.3 % 43 - 80 % [employer] Phone: Platelet mean volume (Bld) [Entitic vol] 9.8 fL 7 - 12 fL [employer] Phone: Platelets (Bld) [#/Vol] 291 10*3/uL [employer] Phone: RBC (Bld) [#/Vol] 5.95 10*6/uL High [employer] Phone: RDW 13.2 fL 11.5 - 15 fL [employer] Phone: WBC (Bld) [#/Vol] 9.2 10*3/uL [employer] Phone: Comprehensive metabolic pane lOrdered By: Edmundo Galvan on 04-23-2019 Albumin [Mass/Vol] 4.4 g/dL 3.5 - 5.2 g/dL [employer] Phone: ALP [Catalytic activity/Vol] 184 U/L High 40 - 129 U/L [employer] Phone: ALT [Catalytic activity/Vol] 246 U/L High 0 - 40 U/L [employer] Phone: Anion gap [Moles/Vol] 13 mmol/L 7 - 16 mmol/L [employer] Phone: AST [Catalytic activity/Vol] 36 U/L 0 - 39 U/L [facility] Phone: Bilirubin [Mass/Vol] 0.7 mg/dL 0 - 1.2 mg/dL [employer] Phone: Calcium [Mass/Vol] 9.7 mg/dL 8.6 - 10. 2 mg/dL [facility] Phone: Chloride [Moles/Vol] 103 mmol/L 98 - 10 7 mmol/L [employer] Phone: CO2 [Moles/Vol] 22 mmol/L 22 - 29 mmol/L [facility] [facility] [employer] Phone: Creatinine [Mass/Vol] 0.7 mg/dL 0.7 - 1.2 mg/dL [facility] [facility] [employer] Phone: GFR >60 [employer] Phone: GFR Non- >60 >=60 mL/min/1.73 [facility] [employer] Phone: Comment on above: Chronic Kidney Disea se: less than 60 ml/min/1.73 sq.m. Kidney Failure: less than 15 ml/min/1.73 sq.m. Results valid for patients 18 years and older. Glucose [Mass/Vol] 127 mg/dL High 74 - 99 mg/dL [facility] [facility] [employer] Phone: Interpretation and review of laboratory results Abnormal [facility] Phone: Potassium [Moles/Vol] 4.0 mmol/L 3.5 - 5 mmol/L [facility] [facility] [employer] Phone: Protein [Mass/Vol] 8.3 g/dL 6.4 - 8.3 g/dL [facility] [facility] [employer] Phone: Sodium [Moles/Vol] 138 mmol/L 132 - 146 mmol/L [facility] [employer] Phone: Urea nitrogen [Mass/Vol] 11 mg/dL 6 - 20 mg/dL [facility] [employer] Phone: D-Dimer, QuantitativeOrdered By: Christiano Perkins on 04-23-2019 D-Dimer, Quant <200 ng/mL [employer] [employer] Work Phone: Comment on above: D-DIMER Interpretati on: < 230 ng/mL (D-DU) Indicates low probability for PE/DVT = 232 ng/mL (D-DU) Upper Limit of Normal >= 4000 ng/mL (D-DU) This level could suggest the presence of DIC. Clinical correlation may be helpful. TroponinOrdered By: Edmundo del valle on 04-23-2019 Troponin I.cardiac [Mass/Vol] ng/mL 0 - 0.03 ng/mL [employer] Phone: Comment on above: TROPONIN T BLOOD LEV ELS: 0.03 ng/mL Upper Reference Limit 0.04 - 0.09 ng/mL Possible myocardial injury >= 0.10 ng/mL Myocardial injury XR CHEST STANDARD (2 VW)Orde red By: Edmundo Galvan on 04-23-2019 Normal chest [employer] Phone: Patient 8 : 1975 Age: 44 years Gender: Male Order Date: 04/23/2019 9:30 AM EXAM: XR CHEST (2 VW) INDICATION: CHEST PAIN CHEST PAIN COMPARISON: None FINDINGS: Heart size is normal. There are no infiltrates or effusions. [employer] Phone: Sage, Mhy Incoming Radiant Results From [facility] - 04/23/2019 10:12 AM EST Patient : 1975 Age: 44 years Gender: Male Order Date: 04/23/2019 9:30 AM EXAM: XR CHEST (2 VW) INDICATION: CHEST PAIN CHEST PAIN COMPARISON: None FINDINGS: Heart size is normal. There are no infiltrates or effusions. IMPRESSION: Normal chest [employer] Phone: Hep B Virus, Quant NAATon HBV Qnt by NAAT (IU/mL) 18,666 Normal [facility] Comment on above: Order Comment: MSO # [id number] Hepatitis C virus by IVY with relex to HCV byQuantitative Performed By: #### B EABO, HBQO ####The performing lab is in the report.#### MSO ####[facility] GENER[employer] S[employer] HBV Qnt by NAAT (log IU/mL) 4.27 log IU/mL Normal [facility] Comment on above: Order Comment: MSO # [id number] Hepatitis C virus by IVY with relex to HCV byQuantitative Performed By: #### PHIL TAYLOR ####The performing lab is in the report.#### MSO ####[facility] GENER[employer] SEND[employer] HBV Qnt by NAAT Interp Detected Not Detected [facility] Comment on above: Order Comment: MSO # [id number] Hepatitis C virus by IVY with relex to HCV byQuantitative Result Comment: INTE RPRETIVE INFORMATION: HBV by Quantitative NAAT Normal range for this assay is Not Detected. The quantitative range of this assay is 1.00-9.00 log IU/mL (10-1,000,000,000 IU/mL). An interpretation of Not Detected does not rule out the presence of inhibitors in the patient specimen or HBV DNA concentration below the level of detection of the test. Care should be taken when interpreting any single viral load determination. This assay should not be used for blood donor screening, associated re-entry protocols, or for screening Human Cell, Tissues and Cellular Tissue-Based Products (HCT/P). Performed by [employer] [address] [facility] [place] [address] [email or web address], Diego Davis MD - Lab. Director Performed By: #### PHIL TAYLOR ####The performing lab is in the report.#### MSO ####[facility] GENER[employer] SENDOUT Hep Be Abon 07-24-2018 Hep Be Ab Negative Normal Negative [facility] Comment on above: Order Comment: MSO # [id number] Hepatitis C virus by IVY with relex to HCV byQuantitative Result Comment: Perf ormed by [employer] [address] [facility] [place] [facility],[place] [address] [email or web address], Diego Davis MD - Lab. Director Performed By: #### PHIL TAYLOR ####The performing lab is in the report.#### MSO ####[employer] GENER[employer] Hepatitis C RNA Quanton 04-0 Hep C RNA Quant (log) 3.71 {Log_IU} Abnormal <1.18 [facility] Comment on above: Performed By: #### H CVQ ####[id number] [place] [address] Hepatitis C RNA Quant 5134 [IU]/mL Abnormal <15 [facility] Comment on above: Performed By: #### H CVQ ####[address] [place] [address] Miscellaneous Referred Testo n 07-24-2018 Performed By: see below Normal [facility] Comment on above: Order Comment: MSO # [id number] Hepatitis C virus by IVY with relex to HCV byQuantitative Result Comment: [facility] [place] [place] Performed By: #### B EABO, HBQO ####The performing lab is in the report.#### MSO ####[facility] GENERIC SENDOUT Result 1: see below Normal [facility] Comment on above: Order Comment: MSO # [id number] Hepatitis C virus by IVY with relex to HCV byQuantitative Result Comment: Hepa titis C Antibody by IVY Interp High Pos * (Ref Interval: Negative) High Positive for anti-HCV. HCV RNA testing will determine if the patient is currently infected. The anti-HCV (IVY) screen is reactive. Refer to the HCV RNA by Quantitative NAAT result for additional detail. INTERPRETIVE INFORMATION: Hepatitis C Virus Antibody by IVY Index: 0.79 IV or less .................. Negative 0.80 to 0.99 IV .................. Equivocal 1.00 to 10.99 IV ................. Low Positive 11.00 IV or greater .............. High Positive Index Value (IV) = Anti-HCV signal to cutoff (S/C)ratio Hepatitis C Antibody by IVY Index >11.00 IV HCV Qnt by NAAT (IU/mL) 6,826 IU/mL HCV Qnt by NAAT (log IU/mL) 3.83 log IU/mL HCV Qnt by NAAT Interp Detected * (Ref Interval: Not Detected) INTERPRETIVE INFORMATION: HCV by Quantitative NAAT Normal range for this assay is Not Detected. The quantitative range of this assay is 10 - 100,000,000 IU/mL (1.0 - 8.0 log IU/mL). Performed By: #### B EABO, HBQO ####The performing lab is in the report.#### MSO ####[facility] GENERIC SENDOUT Comp Metabolic Panelon 07-21 ALP enzyme act/vol 183 U/L High 38-126 [facility] Comment on above: Order Comment: Sligh t Hemolysis Performed By: #### C MP3 ####[facility] [employer] [address] [place] [address] ALT enzyme act/vol 643 U/L High 13-69 [facility] Comment on above: Order Comment: Sligh t Hemolysis Performed By: #### C MP3 ####[facility] [employer] [address] [facility] [place] [address] AST enzyme act/vol 188 U/L High 15-46 [facility] Comment on above: Order Comment: Sligh t Hemolysis Performed By: #### C MP3 ####[facility] [employer] [address] [place] [address] Calcium mass conc 8.3 mg/dL Low 8.4-10.4 [facility] Comment on above: Order Comment: Sligh t Hemolysis Performed By: #### C MP3 ####[facility] [employer] [address] [facility] [address] Glucose mass conc 118 mg/dL High 70-100 [facility] Comment on above: Order Comment: Sligh t Hemolysis Performed By: #### C MP3 ####[facility] [address] [address] Protein mass conc 6.1 g/dL Low 6.3-8.2 [facility] Comment on above: Order Comment: Sligh t Hemolysis Performed By: #### C MP3 ####[facility] [address] [address] Urea nitrogen mass conc 6 mg/dL Low 7-20 [facility] Comment on above: Order Comment: Sligh t Hemolysis Performed By: #### C MP3 ####[place] [place] [address] Anion gap molar conc 4 Normal [facility] Comment on above: Order Comment: Sligh t Hemolysis Performed By: #### C MP3 ####[place] [address] [place] [address] Bilirubin mass conc 1.9 mg/dL High 0.2-1.3 [facility] Comment on above: Order Comment: Sligh t Hemolysis Performed By: #### C MP3 ####[place] [address] [place] [address] CO2 molar conc 26 mmol/L Normal 22-30 [facility] Comment on above: Order Comment: Sligh t Hemolysis Performed By: #### C MP3 ####[place] [place] [address] Creatinine mass conc 0.58 mg/dL Normal 0.52-1.25 [facility] Comment on above: Order Comment: Sligh t Hemolysis Performed By: #### C MP3 ####[place] [address] [place] [address] GFR/1.73 sq M predicted among blacks MDRD vol rate/area (S/P/Bld) mL/min/{1.73_m2} Normal >60 [facility] Comment on above: Order Comment: Sligh t Hemolysis Performed By: #### C MP3 ####[place] [place] [address] GFR/1.73 sq M predicted among non-blacks MDRD vol rate/area (S/P/Bld) mL/min/{1.73_m2} Normal >60 [facility] Comment on above: Order Comment: Sligh t Hemolysis Result Comment: Sour ce- MDRD equation with creatinine calibration to IDMS(NKDEP) eGFR not recommended for drug dose adjustment Performed By: #### C MP3 ####[place] [address] [place] [address] Albumin mass conc 3.1 g/dL Low 3.5-5.0 [facility] Comment on above: Order Comment: Sligh t Hemolysis Performed By: #### C MP3 ####[place] [address] [place] [address] Chloride molar conc 105 mmol/L Normal 98-107 [facility] Comment on above: Order Comment: Sligh t Hemolysis Performed By: #### C MP3 ####[place] [address] [place] [address] Potassium molar conc 4.4 mmol/L Normal 3.5-5.1 [facility] Comment on above: Order Comment: Sligh t Hemolysis Performed By: #### C MP3 ####[place] [address] [place] [address] Sodium molar conc 135 mmol/L Normal 135-145 [facility] Comment on above: Order Comment: Sligh t Hemolysis Performed By: #### C MP3 ####[place] [place] [place] [address] Comp Metabolic Panelon 07-20 Calcium mass conc 8.5 mg/dL Normal 8.4-10.4 [facility] Comment on above: Performed By: #### H EMDF, CMP3, LFT3 ####[address] [place] [place] [address] Anion gap molar conc 9 Normal [facility] Comment on above: Performed By: #### H EMDF, CMP3, LFT3 ####[address] [place] [place] [address] CO2 molar conc 25 mmol/L Normal 22-30 [facility] Comment on above: Performed By: #### H EMDF, CMP3, LFT3 ####[address] [place] [address] Creatinine mass conc 0.65 mg/dL Normal 0.52-1.25 [facility] Comment on above: Performed By: #### H EMDF, CMP3, LFT3 ####[place] [place] [address] GFR/1.73 sq M predicted among blacks MDRD vol rate/area (S/P/Bld) mL/min/{1.73_m2} Normal >60 [facility] Comment on above: Performed By: #### H EMDF, CMP3, LFT3 ####[address] [place] [address] GFR/1.73 sq M predicted among non-blacks MDRD vol rate/area (S/P/Bld) mL/min/{1.73_m2} Normal >60 [facility] Comment on above: Result Comment: Sour ce- MDRD equation with creatinine calibration to IDMS(NKDEP) eGFR not recommended for drug dose adjustment Performed By: #### H EMDF, CMP3, LFT3 ####[address] [place] [address] Glucose mass conc 103 mg/dL High 70-100 [facility] Comment on above: Performed By: #### H EMDF, CMP3, LFT3 ####[address] [place] [address] Urea nitrogen mass conc 7 mg/dL Normal 7-20 [facility] Comment on above: Performed By: #### H EMDF, CMP3, LFT3 ####[address] [place] [address] Potassium molar conc 4.0 mmol/L Normal 3.5-5.1 [facility] Comment on above: Performed By: #### H EMDF, CMP3, LFT3 ####[address] [place] [address] Sodium molar conc 139 mmol/L Normal 135-145 [facility] Comment on above: Performed By: #### H EMDF, CMP3, LFT3 ####[address] [place] [address] Chloride molar conc 105 mmol/L Normal 98-107 [facility] Comment on above: Performed By: #### H EMDF, CMP3, LFT3 ####[address] [place] [address] Hemogram w/ Autodiffon 07-20 Abs Baso Cnt 0.1 10*3/uL Normal 0.0-0.2 [facility] Comment on above: Performed By: #### T SGL #### [address] [place] [address] Abs Neutrophile Cnt 1.5 10*3/uL Low 1.8-7.0 [facility] Comment on above: Performed By: #### T SGL #### [facility] [address] [place] [address] Basophils/100 WBC (Bld) 0.8 % Normal 0.0-2.0 [facility] Comment on above: Performed By: #### T SGL #### [facility] [address] [place] [address] Eosinophils #/vol (Bld) 0.5 10*3/uL Normal 0.0-0.5 [facility] Comment on above: Performed By: #### T SGL #### [facility] [address] [place] [address] Eosinophils/100 WBC (Bld) 6.4 % High 1.0-6.0 [facility] Comment on above: Performed By: #### T SGL #### [facility] [address] [place] [address] Erythrocyte distribution width Ratio (RBC) 14.8 % High 11.5-14.5 [facility] Comment on above: Performed By: #### T SGL #### [facility] [address] [place] [address] Granulocytes/100 WBC (Bld) 20.8 % Low 40.0-80.0 [facility] Comment on above: Performed By: #### T SGL #### [facility] [address] [place] [address] Hematocrit Volume Fraction (Bld) 40.5 % Normal 40.0-52.0 [facility] Comment on above: Performed By: #### T SGL #### [facility] [address] [place] [address] Hemoglobin mass conc (Bld) 13.5 g/dL Normal 13.0-18.0 [facility] Comment on above: Performed By: #### T SGL #### [facility] [address] [place] [address] Lymphocytes #/vol (Bld) 4.4 10*3/uL High 1.0-4.3 [facility] Comment on above: Performed By: #### T SGL #### [facility] [address] [place] [address] Lymphocytes/100 WBC (Bld) 61.1 % High 20.0-40.0 [facility] Comment on above: Performed By: #### T SGL #### [facility] [address] [place] [address] MCH Entitic mass (RBC) 28.2 pg Normal 26.0-34.0 [facility] Comment on above: Performed By: #### T SGL #### [facility] [address] [place] [address] MCHC mass conc (RBC) 33.4 % Normal 32.0-36.0 [facility] Comment on above: Performed By: #### T SGL #### [facility] [address] [place] [address] MCV Entitic volume (RBC) 84.5 fL Normal 80.0-98.0 [facility] Comment on above: Performed By: #### T SGL #### [facility] [address] [place] [address] Monocytes #/vol (Bld) 0.8 10*3/uL Normal 0.0-0.8 [facility] Comment on above: Performed By: #### T SGL #### [facility] [address] [place] [address] Monocytes/100 WBC (Bld) 10.9 % High 2.0-10.0 [facility] Comment on above: Performed By: #### T SGL #### [facility] [address] [place] [address] Platelet mean volume Entitic volume (Bld) 8.8 fL Normal 7.4-10.4 [facility] Comment on above: Performed By: #### T SGL #### [facility] [address] [place] [address] Platelets #/vol (Bld) 97 10*3/uL Low 140-440 [facility] Comment on above: Performed By: #### T SGL #### [facility] [address] [place] [address] RBC #/vol (Bld) 4.80 10*6/uL Normal 4.40-5.90 [facility] Comment on above: Performed By: #### T SGL #### [facility] [address] [place] [address] WBC #/vol (Bld) 7.1 10*3/uL Normal 3.6-10.7 [facility] Comment on above: Performed By: #### T SGL #### [facility] [address] [place] [address] Hepatic Functionon 9 ALP enzyme act/vol 173 U/L High 38-126 [facility] Comment on above: Performed By: #### H EMDF, CMP3, LFT3 ####[facility] [place] [address] ALT enzyme act/vol 868 U/L High 13-69 [facility] Comment on above: Performed By: #### H EMDF, CMP3, LFT3 ####[facility] [place] [address] AST enzyme act/vol 215 U/L High 15-46 [facility] Comment on above: Performed By: #### H EMDF, CMP3, LFT3 ####[facility] [employer] [address] [place] [address] Bilirubin mass conc 2.5 mg/dL High 0.2-1.3 [facility] Comment on above: Performed By: #### H EMDF, CMP3, LFT3 ####[facility] [place] [address] Bilirubin.direct mass conc 0.4 mg/dL High 0.0-0.3 [facility] Comment on above: Performed By: #### H EMDF, CMP3, LFT3 ####[facility] [employer] [address] [place] [address] Protein mass conc 5.4 g/dL Low 6.3-8.2 [facility] Comment on above: Performed By: #### H EMDF, CMP3, LFT3 ####[facility] [employer] [address] [place] [address] Albumin mass conc 2.9 g/dL Low 3.5-5.0 [facility] Comment on above: Performed By: #### H EMDF, CMP3, LFT3 ####[facility] [place] [address] Hepatitis C RNA Quanton 06-23 Note Interpretation Normal [facility] Comment on above: Result Comment: The linear detection limit for this assay is 15 HCV IU/ml. A result of <15 IU (<1.18 log IU) indicates that HCV was detected, but at a level below the linear cutoff. A result of None Detected means that no HCV RNA was detected. Performed By: #### H CVQ ####[employer] [place] [address] MRI Abdomen w/o Contraston 0 07-20-2018 MRI Abdomen w/o Contrast Patient Name: CRUSHERFRANSISCO MRI Exam Date/Time 07/20/2018 09:09:41 EDT Exam MRI Abdomen w/o Contrast Ordering Physician FIDE MANCUSO Accession Number [id number] CPT4 Codes 84411 () Reason For Exam elevated liver enzymes, gb wall thickening Report MRI OF THE ABDOMEN WITH MRCP: CLINICAL INDICATION: Abnormal liver function test, gallbladder wall thickening. TECHNIQUE: Transaxial and coronal T1 and T2 breath hold along with transaxial and coronal gradient echo sequences were performed through the abdomen. Thick section multi-angle and thin section multi-slice MRCP sequences were performed through the abdomen as well. Maximum intensity projection 3-D images were created with the latter data set on an independent workstation. COMPARISON: Right upper quadrant ultrasound on 07/18/2018 FINDINGS: Gallbladder: No cholelithiasis. Trace pericholecystic fluid. Top normal gallbladder wall thickness of 3.2 mm. No abnormal distention. Biliary tree: Intrahepatic and extrahepatic biliary tree demonstrates normal caliber.. Common hepatic duct luminal caliber:0.4 cm. Common bile duct luminal caliber: 0.4 cm. No filling defects identified. Normal tapered configuration of the distal end of the common bile duct. Pancreatic duct: Normal caliber. Liver: Hepatomegaly. Normal contours. No focal lesion. Pancreas: No definite visualized mass. There is peripancreatic fluid at the head/uncinate process extending along the inferior right pararenal fascia. Peripancreatic and portacaval lymphadenopathy is present. Alternatively, duodenitis may be the underlying etiology. Spleen: Normal. Adrenals:Normal Kidneys: No contour abnormality or hydronephrosis. Aorta: Normal caliber. Enlarged left periaortic lymph node measuring 1.5 mm. Visualized Osseous structures: Unremarkable. IMPRESSION: 1. Edema near head/uncinate process of the pancreas and adjacent duodenum with fluid tracking along the inferior right anterior pararenal fascia. Pancreatitis or duodenitis are concerned. 2. Peripancreatic, portocaval periaortic lymphadenopathy. This may be reactive to the underlying gastritis, duodenitis, however other etiologies are not excluded. Further evaluation with contrast-enhanced CT of the abdomen and pelvis is recommended. 3. Trace pericholecystic fluid. No cholelithiasis or additional signs of cholecystitis. If there is continued concern, HIDA scan can be considered. 4. No biliary ductal dilatation. 5. Hepatomegaly. Report Dictated on Final Dictating Physician: MD BANDA NEIL Signed Date and Time: 07/20/2018 3:11 pm Signed by: MD BANDA NEIL Transcribed Date and Time: 07/20/2018 3:12 Normal [facility] Miscellaneous Referred Testo n 07-20-2018 Test Name HE Normal [facility] Comment on above: Order Comment: MSO # [id number] Hepatitis C virus by IVY with relex to HCV byQuantitative Performed By: #### B EABO, HBQO ####The performing lab is in the report.#### MSO ####[facility] GENER[employer] Prothrombin Timeon 9 INR Coag RelTime (PPP) 1.1 Normal 0.9-1.1 [facility] Comment on above: Result Comment: Man mmended Anticoagulant Therapy: SEE BELOW ----- INR of 2.0 - 3.0 : - Prophylaxis of Venous Thrombosis (high-risk surgery) - Treatment of Venous Thrombosis - Treatment of Pulmonary Embolism (Includes tissue heart valves, Acute Myocardial Infarction to prevent systemic embolism, Valvular Heart Disease, and Atrial Fibrillation) ----- INR of 2.5 - 3.5 : - Mechanical Prosthetic Valves (high risk) - If oral anticoagulant therapy is used to prevent Myocardial Infarction Performed By: #### P T ####[facility] [place] [address] Prothrombin time (PT) Coag time (PPP) 11.7 s Normal 9.0-12.0 [facility] Comment on above: Result Comment: . Performed By: #### P T ####[facility] [place] [address] Acetaminophenon 07-19-2018 Acetaminophen mass conc < 10.0 Normal 10.0-30.0 [facility] Comment on above: Performed By: #### T SGL #### [facility] [address] [place] [address] Acute Hepatitis Panelon 06-22 Hep A Virus Ab,IgM NOT DETECTED Normal Not-Detec te d [facility] Comment on above: Performed By: #### T SGL #### [facility] [address] [place] [address] Hep B Core IgM NOT DETECTED Normal Not-Detecte d [facility] Comment on above: Performed By: #### T SGL #### [facility] [address] [place] [address] Hep B Surface Ag DETECTED Abnormal Not-Detecte d [facility] Comment on above: Result Comment: Prev iously detected and confirmed Performed By: #### T SGL #### [facility] [address] [place] [address] Hep C Antibody DETECTED Abnormal Not-Detecte d [facility] Comment on above: Result Comment: Davina ents with DETECTED Hepatitis C Ab results should have a new specimen submitted for supplemental testing with a Hepatitis C Quantitative RNA assay (viral load), if clinically indicated. Performed By: #### T SGL #### [facility] [address] [place] [address] Basic Metabolic Panelon 06-22 Calcium mass conc 8.5 mg/dL Normal 8.4-10.4 [facility] Comment on above: Order Comment: MODER ATE ICTERUS AND SLIGHT HEMOLYSIS Performed By: #### T SGL #### [facility] [address] [place] [address] Anion gap molar conc 4 Normal [facility] Comment on above: Order Comment: MODER ATE ICTERUS AND SLIGHT HEMOLYSIS Performed By: #### T SGL #### [facility] [address] [place] [address] CO2 molar conc 31 mmol/L High 22-30 [facility] Comment on above: Order Comment: MODER ATE ICTERUS AND SLIGHT HEMOLYSIS Performed By: #### T SGL #### [facility] [address] [place] [address] Creatinine mass conc 0.62 mg/dL Normal 0.52-1.25 [facility] Comment on above: Order Comment: MODER ATE ICTERUS AND SLIGHT HEMOLYSIS Performed By: #### T SGL #### [facility] [address] [place] [address] GFR/1.73 sq M predicted among blacks MDRD vol rate/area (S/P/Bld) mL/min/{1.73_m2} Normal >60 [facility] Comment on above: Order Comment: MODER ATE ICTERUS AND SLIGHT HEMOLYSIS Performed By: #### T SGL #### [facility] [address] [place] [address] GFR/1.73 sq M predicted among non-blacks MDRD vol rate/area (S/P/Bld) mL/min/{1.73_m2} Normal >60 [facility] Comment on above: Order Comment: MODER ATE ICTERUS AND SLIGHT HEMOLYSIS Result Comment: Sour ce- MDRD equation with creatinine calibration to IDMS(NKDEP) eGFR not recommended for drug dose adjustment Performed By: #### T SGL #### [facility] [address] [place] [address] Glucose mass conc 125 mg/dL High 70-100 [facility] Comment on above: Order Comment: MODER ATE ICTERUS AND SLIGHT HEMOLYSIS Performed By: #### T SGL #### [facility] [address] [place] [address] Urea nitrogen mass conc 9 mg/dL Normal 7-20 [facility] Comment on above: Order Comment: MODER ATE ICTERUS AND SLIGHT HEMOLYSIS Performed By: #### T SGL #### [facility] [address] [place] [address] Potassium molar conc 4.4 mmol/L Normal 3.5-5.1 [facility] Comment on above: Order Comment: MODER ATE ICTERUS AND SLIGHT HEMOLYSIS Performed By: #### T SGL #### [facility] [address] [place] [address] Sodium molar conc 133 mmol/L Low 135-145 [facility] Comment on above: Order Comment: MODER ATE ICTERUS AND SLIGHT HEMOLYSIS Performed By: #### T SGL #### [facility] [address] [place] [address] Chloride molar conc 97 mmol/L Low 98-107 [facility] Comment on above: Order Comment: MODER ATE ICTERUS AND SLIGHT HEMOLYSIS Performed By: #### T SGL #### [facility] [address] [place] [address] Bilirubin,Directon 9 Bilirubin.direct mass conc 2.6 mg/dL High 0.0-0.3 [facility] Comment on above: Performed By: #### C MP3, HEMDF #### [facility] [address] [place] [address] Comp Metabolic Panelon 07-19 ALT enzyme act/vol 1683 U/L High 13-69 [facility] Comment on above: Performed By: #### C MP3, HEMDF #### [facility] [address] [place] [address] Hemogram w/ Autodiffon 07-19 WBC #/vol (Bld) 11.3 10*3/uL High 3.6-10.7 [facility] Comment on above: Result Comment: Thro mbocytopenia and leukocytosis with neutropenia and atypical lymphocytosis. R/O infection, drug toxicity, nutritional deficiencies and/or coagulopathy. No blasts or schistocytes are seen. interventional tech Performed By: #### C MP3, HEMDF #### [facility] [address] [place] [address] Erythrocyte distribution width Ratio (RBC) 14.5 % Normal 11.5-14.5 [facility] Comment on above: Performed By: #### T SGL #### [facility] [address] [place] [address] Hematocrit Volume Fraction (Bld) 42.5 % Normal 40.0-52.0 [facility] Comment on above: Performed By: #### T SGL #### [facility] [address] [place] [address] Hemoglobin mass conc (Bld) 14.2 g/dL Normal 13.0-18.0 [facility] Comment on above: Performed By: #### T SGL #### [facility] [address] [place] [address] MCH Entitic mass (RBC) 28.0 pg Normal 26.0-34.0 [facility] Comment on above: Performed By: #### T SGL #### [facility] [address] [place] [address] MCHC mass conc (RBC) 33.4 % Normal 32.0-36.0 [facility] Comment on above: Performed By: #### T SGL #### [facility] [address] [place] [address] MCV Entitic volume (RBC) 83.7 fL Normal 80.0-98.0 [facility] Comment on above: Performed By: #### T SGL #### [facility] [address] [place] [address] Platelet mean volume Entitic volume (Bld) 8.9 fL Normal 7.4-10.4 [facility] Comment on above: Performed By: #### T SGL #### [facility] [address] [place] [address] Platelets #/vol (Bld) 104 10*3/uL Low 140-440 [facility] Comment on above: Performed By: #### T SGL #### [facility] [address] [place] [address] RBC #/vol (Bld) 5.08 10*6/uL Normal 4.40-5.90 [facility] Comment on above: Performed By: #### T SGL #### [facility] [address] [place] [address] WBC #/vol (Bld) 9.4 10*3/uL Normal 3.6-10.7 [facility] Comment on above: Performed By: #### T SGL #### [facility] [address] [place] [address] Hepatic Functionon 9 ALT enzyme act/vol 1329 U/L High 13-69 [facility] Comment on above: Order Comment: MODER ATE ICTERUS AND SLIGHT HEMOLYSIS Performed By: #### T SGL #### [facility] [address] [place] [address] ALP enzyme act/vol 181 U/L High 38-126 [facility] Comment on above: Order Comment: MODER ATE ICTERUS AND SLIGHT HEMOLYSIS Performed By: #### T SGL #### [facility] [address] [place] [address] AST enzyme act/vol 407 U/L High 15-46 [facility] Comment on above: Order Comment: MODER ATE ICTERUS AND SLIGHT HEMOLYSIS Performed By: #### T SGL #### [facility] [address] [place] [address] Bilirubin mass conc 5.0 mg/dL High 0.2-1.3 [facility] Comment on above: Order Comment: MODER ATE ICTERUS AND SLIGHT HEMOLYSIS Performed By: #### T SGL #### [facility] [address] [place] [address] Bilirubin.direct mass conc 2.3 mg/dL High 0.0-0.3 [facility] Comment on above: Order Comment: MODER ATE ICTERUS AND SLIGHT HEMOLYSIS Performed By: #### T SGL #### [facility] [address] [place] [address] Protein mass conc 6.4 g/dL Normal 6.3-8.2 [facility] Comment on above: Order Comment: MODER ATE ICTERUS AND SLIGHT HEMOLYSIS Performed By: #### T SGL #### [facility] [address] [place] [address] Albumin mass conc 3.5 g/dL Normal 3.5-5.0 [facility] Comment on above: Order Comment: MODER ATE ICTERUS AND SLIGHT HEMOLYSIS Performed By: #### T SGL #### [facility] [address] [place] [address] Lipaseon 07-19-2018 Lipase enzyme act/vol 31 U/L Normal 23-300 [facility] Comment on above: Performed By: #### C MP3, HEMDF #### [facility] [address] [place] [address] MONO Teston 07-19-2018 MONO Test Negative Normal Negative [facility] Comment on above: Performed By: #### T SGL #### [facility] [address] [place] [address] Magnesiumon 07-19-2018 Magnesium mass conc 1.9 mg/dL Normal 1.6-2.3 [facility] Comment on above: Order Comment: MODER ATE ICTERUS AND SLIGHT HEMOLYSIS Performed By: #### T SGL #### [facility] [address] [place] [address] Manual Diffon 07-19-2018 Abs Baso Cnt 0.0 10*3/uL Normal 0.0-0.2 [facility] Comment on above: Performed By: #### T SGL #### [facility] [address] [place] [address] Abs Neutrophile Cnt 3.2 10*3/uL Normal 2.2-8.2 [facility] Comment on above: Performed By: #### T SGL #### [facility] [address] [place] [address] Bands 0 % Normal 0-3 [facility] Comment on above: Performed By: #### T SGL #### [facility] [address] [place] [address] Basophils/100 WBC (Bld) 0 % Normal 0-2 [facility] Comment on above: Performed By: #### T SGL #### [facility] [address] [place] [address] Cells counted 100 Normal [facility] Comment on above: Performed By: #### T SGL #### [facility] [address] [place] [address] Eosinophils #/vol (Bld) 0.1 10*3/uL Normal 0.0-0.5 [facility] Comment on above: Performed By: #### T SGL #### [facility] [address] [place] [address] Eosinophils/100 WBC (Bld) 1 % Normal 1-6 [facility] Comment on above: Performed By: #### T SGL #### [facility] [address] [place] [address] Lymphocytes #/vol (Bld) 5.4 10*3/uL High 1.1-4.5 [facility] Comment on above: Performed By: #### T SGL #### [facility] [address] [place] [address] Lymphocytes/100 WBC (Bld) 57 % High 20-40 [facility] Comment on above: Performed By: #### T SGL #### [place] [address] [place] [address] Monocytes #/vol (Bld) 0.8 10*3/uL Normal 0.2-1.1 [facility] Comment on above: Performed By: #### T SGL #### [place] [address] [place] [address] Monocytes/100 WBC (Bld) 8 % Normal 2-10 [facility] Comment on above: Performed By: #### T SGL #### [place] [address] [place] [address] RBC morphology finding Nom (Bld) Normal Normal [facility] Comment on above: Performed By: #### T SGL #### [place] [address] [place] [address] Seg Neutrophils 34 % Low 40-80 [facility] Comment on above: Performed By: #### T SGL #### [place] [address] [place] [address] Procalcitoninon 07-19-2018 Protein mass conc 0.34 ng/mL Abnormal <0.10 [facility] Comment on above: Performed By: #### T SGL #### [facility] [address] [place] [address] Interpretation See Below Normal [facility] Comment on above: Result Comment: PCT <0.50 = Low risk of severe sepsis and/or septic shock. PCT >2.00 = High risk of severe sepsis and/or septic shock. Performed By: #### T SGL #### [facility] [address] [place] [address] US Abdomen Limitedon 019 US Abdomen Limited Patient Name: CRUSHER FRANSISCO Ultrasound Exam Date/Time 07/18/2018 23:28:00 EDT Exam US Abdomen Limited Ordering Physician CASIE MARTINEZ Accession Number [id number] CPT4 Codes 78464 () Reason For Exam concern for elevated bili, jaundice Report CLINICAL INFORMATION: Jaundice elevated bilirubin Sonogram of the right upper quadrant is performed. The liver is normal in echotexture, large size. No hyper or hypo echoic masses are seen. There is no intrahepatic biliary ductal dilatation. The gallbladder is normally distended. There are no gallstones with moderate wall thickening with possible trace pericholecystic fluid . The common bile duct diameter of 6.0 mm is within normal limits. The pancreas is homogenous in echo texture, but largely obscured by bowel gas. No obvious pancreatic mass or peripancreatic fluid collection is identified. Nonspecific slightly prominent lymph node in the peripancreatic area Cursory examination of the right kidney is performed. The right renal length is 12.9 cm. There is no hydronephrosis. There is no ascites in the right upper quadrant. IMPRESSION: 1. Hepatomegaly without focal lesion or biliary dilatation 2. Moderate gallbladder wall thickening with trace pericholecystic fluid without definite calculi identified Report Dictated on Workstation: [id number] Final Dictating Physician: MD WHELAN WILLIAM Signed Date and Time: 07/19/2018 0:12 am Signed by: MD WHELAN WILLIAM Transcribed Date and Time: 07/19/2018 0:13 Normal [facility] Comp Metabolic Panelon 07-18 Calcium mass conc 8.8 mg/dL Normal 8.4-10.4 [facility] Comment on above: Performed By: #### C MP3, HEMDF #### [facility] [address] [place] [address] ALP enzyme act/vol 209 U/L High 38-126 [facility] Comment on above: Performed By: #### C MP3, HEMDF #### [facility] [address] [place] [address] Anion gap molar conc 12 Normal [facility] Comment on above: Performed By: #### C MP3, HEMDF #### [facility] [address] [place] [address] AST enzyme act/vol 519 U/L High 15-46 [facility] Comment on above: Performed By: #### C MP3, HEMDF #### [facility] [address] [place] [address] Bilirubin mass conc 5.3 mg/dL High 0.2-1.3 [facility] Comment on above: Performed By: #### C MP3, HEMDF #### [facility] [address] [place] [address] CO2 molar conc 32 mmol/L High 22-30 [facility] Comment on above: Performed By: #### C MP3, HEMDF #### [facility] [address] [place] [address] Glucose mass conc 117 mg/dL High 70-100 [facility] Comment on above: Performed By: #### C MP3, HEMDF #### [facility] [address] [place] [address] Protein mass conc 6.5 g/dL Normal 6.3-8.2 [facility] Comment on above: Performed By: #### C MP3, HEMDF #### [facility] [address] [place] [address] Urea nitrogen mass conc 10 mg/dL Normal 7-20 [facility] Comment on above: Performed By: #### C MP3, HEMDF #### [facility] [address] [place] [address] Creatinine mass conc 0.63 mg/dL Normal 0.52-1.25 [facility] Comment on above: Performed By: #### C MP3, HEMDF #### [facility] [address] [place] [address] GFR/1.73 sq M predicted among blacks MDRD vol rate/area (S/P/Bld) mL/min/{1.73_m2} Normal >60 [facility] Comment on above: Performed By: #### C MP3, HEMDF #### [facility] [address] [place] [address] GFR/1.73 sq M predicted among non-blacks MDRD vol rate/area (S/P/Bld) mL/min/{1.73_m2} Normal >60 [facility] Comment on above: Result Comment: Sour ce- MDRD equation with creatinine calibration to IDMS(NKDEP) eGFR not recommended for drug dose adjustment Performed By: #### C MP3, HEMDF #### [facility] [address] [place] [address] Albumin mass conc 3.6 g/dL Normal 3.5-5.0 [facility] Comment on above: Performed By: #### C MP3, HEMDF #### [facility] [address] [place] [address] Chloride molar conc 95 mmol/L Low 98-107 [facility] Comment on above: Performed By: #### C MP3, HEMDF #### [facility] [address] [place] [address] Potassium molar conc 3.3 mmol/L Low 3.5-5.1 [facility] Comment on above: Performed By: #### C MP3, HEMDF #### [facility] [address] [place] [address] Sodium molar conc 139 mmol/L Normal 135-145 [facility] Comment on above: Performed By: #### C MP3, HEMDF #### [facility] [address] [place] [address] Hemogram w/ Autodiffon 07-18 Erythrocyte distribution width Ratio (RBC) 14.8 % High 11.5-14.5 [facility] Comment on above: Performed By: #### C MP3, HEMDF #### [facility] [address] [place] [address] Hematocrit Volume Fraction (Bld) 44.3 % Normal 40.0-52.0 [facility] Comment on above: Performed By: #### C MP3, HEMDF #### [facility] [address] [place] [address] Hemoglobin mass conc (Bld) 14.8 g/dL Normal 13.0-18.0 [facility] Comment on above: Performed By: #### C MP3, HEMDF #### [facility] [address] [place] [address] MCH Entitic mass (RBC) 27.9 pg Normal 26.0-34.0 [facility] Comment on above: Performed By: #### C MP3, HEMDF #### [facility] [address] [place] [address] MCHC mass conc (RBC) 33.3 % Normal 32.0-36.0 [facility] Comment on above: Performed By: #### C MP3, HEMDF #### [facility] [address] [place] [address] MCV Entitic volume (RBC) 83.8 fL Normal 80.0-98.0 [facility] Comment on above: Performed By: #### C MP3, HEMDF #### [facility] [address] [place] [address] Platelet mean volume Entitic volume (Bld) 8.7 fL Normal 7.4-10.4 [facility] Comment on above: Performed By: #### C MP3, HEMDF #### [facility] [address] [place] [address] Platelets #/vol (Bld) 112 10*3/uL Low 140-440 [facility] Comment on above: Performed By: #### C MP3, HEMDF #### [facility] [address] [place] [address] RBC #/vol (Bld) 5.29 10*6/uL Normal 4.40-5.90 [facility] Comment on above: Performed By: #### C MP3, HEMDF #### [facility] [address] [place] [address] Manual Diffon 07-18-2018 RBC morphology finding Nom (Bld) Normal Normal [facility] Comment on above: Performed By: #### C MP3, HEMDF #### [facility] [address] [place] [address] Abs Baso Cnt 0.0 10*3/uL Normal 0.0-0.2 [facility] Comment on above: Performed By: #### C MP3, HEMDF #### [facility] [address] [place] [address] Abs Neutrophile Cnt 1.7 10*3/uL Low 2.2-8.2 [facility] Comment on above: Performed By: #### C MP3, HEMDF #### [facility] [address] [place] [address] Atypical Lymphocytes 14 % Abnormal <1 [facility] Comment on above: Performed By: #### C MP3, HEMDF #### [facility] [address] [place] [address] Basophils/100 WBC (Bld) 0 % Normal 0-2 [facility] Comment on above: Performed By: #### C MP3, HEMDF #### [facility] [address] [place] [address] Eosinophils #/vol (Bld) 0.6 10*3/uL High 0.0-0.5 [facility] Comment on above: Performed By: #### C MP3, HEMDF #### [facility] [address] [place] [address] Eosinophils/100 WBC (Bld) 5 % Normal 1-6 [facility] Comment on above: Performed By: #### C MP3, HEMDF #### [facility] [address] [place] [address] Lymphocytes #/vol (Bld) 6.8 10*3/uL High 1.1-4.5 [facility] Comment on above: Performed By: #### C MP3, HEMDF #### [facility] [address] [place] [address] Lymphocytes/100 WBC (Bld) 60 % High 20-40 [facility] Comment on above: Performed By: #### C MP3, HEMDF #### [facility] [address] [place] [address] Monocytes #/vol (Bld) 0.3 10*3/uL Normal 0.2-1.1 [facility] Comment on above: Performed By: #### C MP3, HEMDF #### [facility] [address] [place] [address] Monocytes/100 WBC (Bld) 3 % Normal 2-10 [facility] Comment on above: Performed By: #### C MP3, HEMDF #### [facility] [address] [place] [address] Seg Neutrophils 15 % Low 40-80 [facility] Comment on above: Performed By: #### C MP3, HEMDF #### [facility] [address] [place] [address] Unclassifieds 3 % Abnormal <1 [facility] Comment on above: Performed By: #### C MP3, HEMDF #### [facility] [address] [place] [address] Bands 0 % Normal 0-3 [facility] Comment on above: Performed By: #### C MP3, HEMDF #### [facility] [address] [place] [address] Cells counted 100 Normal [facility] Comment on above: Performed By: #### C MP3, HEMDF #### [facility] [address] [place] [address] Urinalysis,Macroon 9 Appearance Nom (U) CLEAR Normal Clear [facility] Comment on above: Performed By: #### C MP3, HEMDF #### [facility] [address] [place] [address] Bilirubin,Ur Positive Normal Negative [facility] Comment on above: Performed By: #### C MP3, HEMDF #### [facility] [address] [place] [address] Color Nom (U) ORANGE Normal Lt. Yellow [facility] Comment on above: Performed By: #### C MP3, HEMDF #### [facility] [address] [place] [address] Glucose Ql (U) Negative Normal Negative [facility] Comment on above: Performed By: #### C MP3, HEMDF #### [facility] [address] [place] [address] Ketone,Urine TRACE Normal Negative [facility] Comment on above: Performed By: #### C MP3, HEMDF #### [facility] [address] [place] [address] Nitrite Ql (U) Negative Normal Negative [facility] Comment on above: Performed By: #### C MP3, HEMDF #### [facility] [address] [place] [address] Occult Blood,Ur Negative Normal Negative [facility] Comment on above: Performed By: #### C MP3, HEMDF #### [facility] [address] [place] [address] pH (U) 6.0 Normal 5.0-8.0 [facility] Comment on above: Performed By: #### C MP3, HEMDF #### [facility] [address] [place] [address] Protein mass conc (U) Negative Normal Negative [facility] Comment on above: Performed By: #### C MP3, HEMDF #### [facility] [address] [place] [address] Specific [place],Urine 1.022 Normal 1.005-1.030 [facility] Comment on above: Performed By: #### C MP3, HEMDF #### [facility] [address] [place] [address] Urobilinogen Qn (U) 2.0 mg/dL Normal 0-1 [facility] Comment on above: Performed By: #### C MP3, HEMDF #### [facility] [address] [place] [address] WBC #/vol (Bld) TRACE Normal Negative [facility] Comment on above: Performed By: #### C MP3, HEMDF #### [facility] [address] [place] [address] Urinalysis,Microscopicon Bacteria LM.HPF #/area (Urine sed) Negative Normal Negative [facility] Comment on above: Performed By: #### C MP3, HEMDF #### [facility] [address] [place] [address] Cast, Hyaline 2 /[LPF] Normal 0-1 [facility] Comment on above: Performed By: #### C MP3, HEMDF #### [facility] [address] [place] [address] Epithelial Cells 0 /[HPF] Normal 3-5 [facility] Comment on above: Performed By: #### C MP3, HEMDF #### [facility] [address] [place] [address] RBC,Urine 12 /[HPF] Normal 0-2 [facility] Comment on above: Performed By: #### C MP3, HEMDF #### [facility] [address] [place] [address] WBC,Urine 0 /[HPF] Normal 0-5 [facility] Comment on above: Performed By: #### C MP3, HEMDF #### [facility] [address] [place] [address] OBSOLETEon 05-13-2018 OBSOLETE Refill (PNMDNA) CRUSHERFRANSISCO ([id number]) 1975 M Date Time Provider Department 05/13/18 ADAM ALONSO PNMDNA During your visit today, we recorded [...] Yes Please review and advise. JEANETTE Carbajal, DIET TECH.PACK OUT OPERATOR 05/13/2018 12:37 PM Signed Medication e [...] Encounter Status:Closed by LUIZ HILL on 05/13/18 Normal [facility] Hemogram w/ Autodiffon 04-04 Abs Baso Cnt 0.0 10*3/uL Normal 0.0-0.2 [facility] Comment on above: Performed By: #### C MP3, HEMDF #### [facility] [facility] [address] [place] [address] Abs Neutrophile Cnt 7.1 10*3/uL High 1.8-7.0 [facility] Comment on above: Performed By: #### C MP3, HEMDF #### [facility] [employer] [facility] [address] [place] [address] Basophils/100 WBC (Bld) 0.3 % Normal 0.0-2.0 [facility] Comment on above: Performed By: #### C MP3, HEMDF #### [facility] [employer] [facility] [address] [place] [address] Eosinophils #/vol (Bld) 0.3 10*3/uL Normal 0.0-0.5 [facility] Comment on above: Performed By: #### C MP3, HEMDF #### [facility] [address] [place] [address] Eosinophils/100 WBC (Bld) 2.3 % Normal 1.0-6.0 [facility] Comment on above: Performed By: #### C MP3, HEMDF #### [facility] [address] [place] [address] Erythrocyte distribution width Ratio (RBC) 12.9 % Normal 11.5-14.5 [facility] Comment on above: Performed By: #### C MP3, HEMDF #### [facility] [address] [place] [address] Granulocytes/100 WBC (Bld) 58.9 % Normal 40.0-80.0 [facility] Comment on above: Performed By: #### C MP3, HEMDF #### [facility] [address] [place] [address] Hematocrit Volume Fraction (Bld) 39.2 % Low 40.0-52.0 [facility] Comment on above: Performed By: #### C MP3, HEMDF #### [facility] [address] [place] [address] Hemoglobin mass conc (Bld) 13.3 g/dL Normal 13.0-18.0 [facility] Comment on above: Performed By: #### C MP3, HEMDF #### [facility] [address] [place] [address] Lymphocytes #/vol (Bld) 3.6 10*3/uL Normal 1.0-4.3 [facility] Comment on above: Performed By: #### C MP3, HEMDF #### [facility] [address] [place] [address] Lymphocytes/100 WBC (Bld) 29.7 % Normal 20.0-40.0 [facility] Comment on above: Performed By: #### C MP3, HEMDF #### [facility] [address] [place] [address] MCH Entitic mass (RBC) 29.0 pg Normal 26.0-34.0 [facility] Comment on above: Performed By: #### C MP3, HEMDF #### [facility] [address] [place] [address] MCHC mass conc (RBC) 33.9 % Normal 32.0-36.0 [facility] Comment on above: Performed By: #### C MP3, HEMDF #### [facility] [address] [place] [address] MCV Entitic volume (RBC) 85.6 fL Normal 80.0-98.0 [facility] Comment on above: Performed By: #### C MP3, HEMDF #### [facility] [address] [place] [address] Monocytes #/vol (Bld) 1.1 10*3/uL High 0.0-0.8 [facility] Comment on above: Performed By: #### C MP3, HEMDF #### [facility] [address] [place] [address] Monocytes/100 WBC (Bld) 8.8 % Normal 2.0-10.0 [facility] Comment on above: Performed By: #### C MP3, HEMDF #### [facility] [address] [place] [address] Platelet mean volume Entitic volume (Bld) 8.8 fL Normal 7.4-10.4 [facility] Comment on above: Performed By: #### C MP3, HEMDF #### [facility] [address] [place] [address] Platelets #/vol (Bld) 202 10*3/uL Normal 140-440 [facility] Comment on above: Performed By: #### C MP3, HEMDF #### [facility] [address] [place] [address] RBC #/vol (Bld) 4.58 10*6/uL Normal 4.40-5.90 [facility] Comment on above: Performed By: #### C MP3, HEMDF #### [facility] [address] [place] [address] WBC #/vol (Bld) 12.1 10*3/uL High 3.6-10.7 [facility] Comment on above: Performed By: #### C MP3, HEMDF #### [facility] [address] [place] [address] Basic Metabolic Panelon 03-23 Calcium mass conc 8.9 mg/dL Normal 8.4-10.4 [facility] Comment on above: Performed By: #### R BCMO, BMP3, HEMDF #### [facility] [address] [place] [address] Glucose mass conc 125 mg/dL High 70-100 [facility] Comment on above: Performed By: #### R BCMO, BMP3, HEMDF #### [facility] [address] [place] [address] Anion gap molar conc 7 Normal [facility] Comment on above: Performed By: #### R BCMO, BMP3, HEMDF #### [facility] [address] [place] [address] CO2 molar conc 25 mmol/L Normal 22-30 [facility] Comment on above: Performed By: #### R BCMO, BMP3, HEMDF #### [facility] [address] [place] [address] Creatinine mass conc 0.60 mg/dL Normal 0.52-1.25 [facility] Comment on above: Performed By: #### R BCMO, BMP3, HEMDF #### [facility] [address] [place] [address] GFR/1.73 sq M predicted among blacks MDRD vol rate/area (S/P/Bld) mL/min/{1.73_m2} Normal >60 [facility] Comment on above: Performed By: #### R BCMO, BMP3, HEMDF #### [facility] [address] [place] [address] GFR/1.73 sq M predicted among non-blacks MDRD vol rate/area (S/P/Bld) mL/min/{1.73_m2} Normal >60 [facility] Comment on above: Result Comment: Sour ce- MDRD equation with creatinine calibration to IDMS(NKDEP) eGFR not recommended for drug dose adjustment Performed By: #### R BCMO, BMP3, HEMDF #### [facility] [address] [place] [address] Urea nitrogen mass conc 9 mg/dL Normal 7-20 [facility] Comment on above: Performed By: #### R BCMO, BMP3, HEMDF #### [facility] [address] [place] [address] Chloride molar conc 109 mmol/L High 98-107 [facility] Comment on above: Performed By: #### R BCMO, BMP3, HEMDF #### [facility] [address] [place] [address] Potassium molar conc 3.8 mmol/L Normal 3.5-5.1 [facility] Comment on above: Performed By: #### R BCMO, BMP3, HEMDF #### [facility] [address] [place] [address] Sodium molar conc 142 mmol/L Normal 135-145 [facility] Comment on above: Result Comment: NOTE : New Sodium Reference Range effective 2018 @ 10:00 Performed By: #### R BCMO, BMP3, HEMDF #### [facility] [address] [place] [address] Hemogram w/ Autodiffon 04-03 Abs Baso Cnt 0.1 10*3/uL Normal 0.0-0.2 [facility] Comment on above: Performed By: #### R BCMO, BMP3, HEMDF #### [facility] [address] [place] [address] Abs Neutrophile Cnt 9.4 10*3/uL High 1.8-7.0 [facility] Comment on above: Performed By: #### R BCMO, BMP3, HEMDF #### [facility] [address] [place] [address] Basophils/100 WBC (Bld) 0.4 % Normal 0.0-2.0 [facility] Comment on above: Performed By: #### R BCMO, BMP3, HEMDF #### [facility] [address] [place] [address] Eosinophils #/vol (Bld) 0.0 10*3/uL Normal 0.0-0.5 [facility] Comment on above: Performed By: #### R BCMO, BMP3, HEMDF #### [facility] [address] [place] [address] Eosinophils/100 WBC (Bld) 0.3 % Low 1.0-6.0 [facility] Comment on above: Performed By: #### R BCMO, BMP3, HEMDF #### [facility] [address] [place] [address] Erythrocyte distribution width Ratio (RBC) 13.2 % Normal 11.5-14.5 [facility] Comment on above: Performed By: #### R BCMO, BMP3, HEMDF #### [facility] [address] [place] [address] Granulocytes/100 WBC (Bld) 64.2 % Normal 40.0-80.0 [facility] Comment on above: Performed By: #### R BCMO, BMP3, HEMDF #### [facility] [address] [place] [address] Hematocrit Volume Fraction (Bld) 39.3 % Low 40.0-52.0 [facility] Comment on above: Performed By: #### R BCMO, BMP3, HEMDF #### [facility] [address] [place] [address] Hemoglobin mass conc (Bld) 13.4 g/dL Normal 13.0-18.0 [facility] Comment on above: Performed By: #### R BCMO, BMP3, HEMDF #### [facility] [address] [place] [address] Lymphocytes #/vol (Bld) 3.5 10*3/uL Normal 1.0-4.3 [facility] Comment on above: Performed By: #### R BCMO, BMP3, HEMDF #### [facility] [address] [place] [address] Lymphocytes/100 WBC (Bld) 24.2 % Normal 20.0-40.0 [facility] Comment on above: Performed By: #### R BCMO, BMP3, HEMDF #### [facility] [address] [place] [address] MCH Entitic mass (RBC) 29.4 pg Normal 26.0-34.0 [facility] Comment on above: Performed By: #### R BCMO, BMP3, HEMDF #### [facility] [address] [place] [address] MCHC mass conc (RBC) 34.1 % Normal 32.0-36.0 [facility] Comment on above: Performed By: #### R BCMO, BMP3, HEMDF #### [facility] [address] [place] [address] MCV Entitic volume (RBC) 86.4 fL Normal 80.0-98.0 [facility] Comment on above: Performed By: #### R BCMO, BMP3, HEMDF #### [facility] [address] [place] [address] Monocytes #/vol (Bld) 1.6 10*3/uL High 0.0-0.8 [facility] Comment on above: Performed By: #### R BCMO, BMP3, HEMDF #### [facility] [address] [place] [address] Monocytes/100 WBC (Bld) 10.9 % High 2.0-10.0 [facility] Comment on above: Performed By: #### R BCMO, BMP3, HEMDF #### [facility] [address] [place] [address] Platelet mean volume Entitic volume (Bld) 8.1 fL Normal 7.4-10.4 [facility] Comment on above: Performed By: #### R BCMO, BMP3, HEMDF #### [facility] [address] [place] [address] Platelets #/vol (Bld) 212 10*3/uL Normal 140-440 [facility] Comment on above: Performed By: #### R BCMO, BMP3, HEMDF #### [facility] [address] [place] [address] RBC #/vol (Bld) 4.54 10*6/uL Normal 4.40-5.90 [facility] Comment on above: Performed By: #### R BCMO, BMP3, HEMDF #### [facility] [address] [place] [address] WBC #/vol (Bld) 14.6 10*3/uL High 3.6-10.7 [facility] Comment on above: Performed By: #### R BCMO, BMP3, HEMDF #### [facility] [address] [place] [address] RBC Morphologyon 04-03-2018 RBC morphology finding Nom (Bld) Normal Normal [facility] Comment on above: Performed By: #### R BCMO, BMP3, HEMDF #### [facility] [address] [place] [address] Basic Metabolic Panelon 03-23 Calcium mass conc 9.0 mg/dL Normal 8.4-10.4 [facility] Comment on above: Performed By: #### B MP3, HEMDF #### [facility] [address] [place] [address] Anion gap molar conc 9 Normal [facility] Comment on above: Performed By: #### B MP3, HEMDF #### [facility] [address] [place] [address] CO2 molar conc 21 mmol/L Low 22-30 [facility] Comment on above: Performed By: #### B MP3, HEMDF #### [facility] [address] [place] [address] Creatinine mass conc 0.64 mg/dL Normal 0.52-1.25 [facility] Comment on above: Performed By: #### B MP3, HEMDF #### [facility] [address] [place] [address] GFR/1.73 sq M predicted among blacks MDRD vol rate/area (S/P/Bld) mL/min/{1.73_m2} Normal >60 [facility] Comment on above: Performed By: #### B MP3, HEMDF #### [facility] [address] [place] [address] GFR/1.73 sq M predicted among non-blacks MDRD vol rate/area (S/P/Bld) mL/min/{1.73_m2} Normal >60 [facility] Comment on above: Result Comment: Sour ce- MDRD equation with creatinine calibration to IDMS(NKDEP) eGFR not recommended for drug dose adjustment Performed By: #### B MP3, HEMDF #### [facility] [address] [place] [address] Glucose mass conc 169 mg/dL High 70-100 [facility] Comment on above: Performed By: #### B MP3, HEMDF #### [facility] [address] [place] [address] Urea nitrogen mass conc 14 mg/dL Normal 7-20 [facility] Comment on above: Performed By: #### Se MP3, HEMDF #### [facility] [address] [place] [address] Chloride molar conc 109 mmol/L High 98-107 [facility] Comment on above: Performed By: #### Se MP3, HEMDF #### [facility] [address] [place] [address] Potassium molar conc 4.1 mmol/L Normal 3.5-5.1 [facility] Comment on above: Performed By: #### Se MP3, HEMDF #### [facility] [address] [place] [address] Sodium molar conc 138 mmol/L Normal 135-145 [facility] Comment on above: Result Comment: NOTE : New Sodium Reference Range effective 2018 @ 10:00 Performed By: #### B MP3, HEMDF #### [facility] [address] [place] [address] Hemogram w/ Autodiffon 04-02 Abs Baso Cnt 0.0 10*3/uL Normal 0.0-0.2 [facility] Comment on above: Performed By: #### B MP3, HEMDF #### [facility] [address] [place] [address] Abs Neutrophile Cnt 17.8 10*3/uL High 1.8-7.0 [facility] Comment on above: Performed By: #### B MP3, HEMDF #### [facility] [address] [place] [address] Basophils/100 WBC (Bld) 0.1 % Normal 0.0-2.0 [facility] Comment on above: Performed By: #### B MP3, HEMDF #### [facility] [address] [place] [address] Eosinophils #/vol (Bld) 0.0 10*3/uL Normal 0.0-0.5 [facility] Comment on above: Performed By: #### B MP3, HEMDF #### [facility] [address] [place] [address] Eosinophils/100 WBC (Bld) 0.0 % Low 1.0-6.0 [facility] Comment on above: Performed By: #### B MP3, HEMDF #### [facility] [address] [place] [address] Erythrocyte distribution width Ratio (RBC) 12.7 % Normal 11.5-14.5 [facility] Comment on above: Performed By: #### B MP3, HEMDF #### [facility] [address] [place] [address] Granulocytes/100 WBC (Bld) 84.3 % High 40.0-80.0 [facility] Comment on above: Performed By: #### B MP3, HEMDF #### [facility] [address] [place] [address] Hematocrit Volume Fraction (Bld) 39.5 % Low 40.0-52.0 [facility] Comment on above: Performed By: #### B MP3, HEMDF #### [facility] [address] [place] [address] Hemoglobin mass conc (Bld) 13.6 g/dL Normal 13.0-18.0 [facility] Comment on above: Performed By: #### B MP3, HEMDF #### [facility] [address] [place] [address] Lymphocytes #/vol (Bld) 2.0 10*3/uL Normal 1.0-4.3 [facility] Comment on above: Performed By: #### B MP3, HEMDF #### [facility] [address] [place] [address] Lymphocytes/100 WBC (Bld) 9.3 % Low 20.0-40.0 [facility] Comment on above: Performed By: #### B MP3, HEMDF #### [facility] [address] [place] [address] MCH Entitic mass (RBC) 29.1 pg Normal 26.0-34.0 [facility] Comment on above: Performed By: #### B MP3, HEMDF #### [facility] [address] [place] [address] MCHC mass conc (RBC) 34.5 % Normal 32.0-36.0 [facility] Comment on above: Performed By: #### B MP3, HEMDF #### [facility] [address] [place] [address] MCV Entitic volume (RBC) 84.4 fL Normal 80.0-98.0 [facility] Comment on above: Performed By: #### B MP3, HEMDF #### [facility] [address] [place] [address] Monocytes #/vol (Bld) 1.3 10*3/uL High 0.0-0.8 [facility] Comment on above: Performed By: #### B MP3, HEMDF #### [facility] [address] [place] [address] Monocytes/100 WBC (Bld) 6.3 % Normal 2.0-10.0 [facility] Comment on above: Performed By: #### B MP3, HEMDF #### [facility] [address] [place] [address] Platelet mean volume Entitic volume (Bld) 8.6 fL Normal 7.4-10.4 [facility] Comment on above: Performed By: #### B MP3, HEMDF #### [facility] [address] [place] [address] Platelets #/vol (Bld) 246 10*3/uL Normal 140-440 [facility] Comment on above: Performed By: #### B MP3, HEMDF #### [facility] [address] [place] [address] RBC #/vol (Bld) 4.68 10*6/uL Normal 4.40-5.90 [facility] Comment on above: Performed By: #### B MP3, HEMDF #### [facility] [address] [place] [address] WBC #/vol (Bld) 21.1 10*3/uL High 3.6-10.7 [facility] Comment on above: Performed By: #### B MP3, HEMDF #### [facility] [address] [place] [address] Op Noteon 04-01-2018 Op Note Dictated [id number]. Normal [employer] Op Note PATIENT: GERSON CANTOR ADMISSION DATE: 04/01/2018 SURGERY DATE: 04/01/2018 DATE OF : 1975 AGE: 43 ADMITTING PHYSICIAN: Rashel Travis MD ATTENDING PHYSICIAN: Rashel Travis MD DICTATING PHYSICIAN: Rashel Travis MD OPERATIVE RECORD PROCEDURE: BILATERAL TOTAL KNEE [...] USED: Triathlon cruciate retaining cementless knees from [place]. 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 Despite [...] were made. At this point, a lamina cook camp was placed to gain access to the [...] cc: Vita Pinto MD DOD:04/01/2018 05:06 P SALVADOR/colin DOT:04/01/2018 07:34 P Job Number: [id number] Document Number: [id number] cc: Rashel Travis MD [facility] [address] [facility] [address] Normal [facility] Comp Metabolic Panelon 03-28 Calcium mass conc 9.3 mg/dL Normal 8.4-10.4 [facility] Comment on above: Performed By: #### C MP3, HEMDF #### [facility] [address] [place] [address] Glucose mass conc 113 mg/dL High 70-100 [facility] Comment on above: Performed By: #### C MP3, HEMDF #### [facility] [address] [place] [address] ALP enzyme act/vol 56 U/L Normal 38-126 [facility] Comment on above: Performed By: #### C MP3, HEMDF #### [facility] [address] [place] [address] ALT enzyme act/vol 41 U/L Normal 13-69 [facility] Comment on above: Performed By: #### C MP3, HEMDF #### [facility] [address] [place] [address] Anion gap molar conc 6 Normal [facility] Comment on above: Performed By: #### C MP3, HEMDF #### [facility] [address] [place] [address] AST enzyme act/vol 17 U/L Normal 15-46 [facility] Comment on above: Performed By: #### C MP3, HEMDF #### [facility] [address] [place] [address] Bilirubin mass conc 0.3 mg/dL Normal 0.2-1.3 [facility] Comment on above: Performed By: #### C MP3, HEMDF #### [facility] [address] [place] [address] CO2 molar conc 30 mmol/L Normal 22-30 [facility] Comment on above: Performed By: #### C MP3, HEMDF #### [facility] [address] [place] [address] Creatinine mass conc 0.61 mg/dL Normal 0.52-1.25 [facility] Comment on above: Performed By: #### C MP3, HEMDF #### [facility] [address] [place] [address] GFR/1.73 sq M predicted among blacks MDRD vol rate/area (S/P/Bld) mL/min/{1.73_m2} Normal >60 [facility] Comment on above: Performed By: #### C MP3, HEMDF #### [facility] [address] [place] [address] GFR/1.73 sq M predicted among non-blacks MDRD vol rate/area (S/P/Bld) mL/min/{1.73_m2} Normal >60 [facility] Comment on above: Result Comment: Sour ce- MDRD equation with creatinine calibration to IDMS(NKDEP) eGFR not recommended for drug dose adjustment Performed By: #### C MP3, HEMDF #### [facility] [address] [place] [address] Protein mass conc 6.7 g/dL Normal 6.3-8.2 [facility] Comment on above: Performed By: #### C MP3, HEMDF #### [facility] [address] [place] [address] Urea nitrogen mass conc 10 mg/dL Normal 7-20 [facility] Comment on above: Performed By: #### C MP3, HEMDF #### [facility] [address] [place] [address] Potassium molar conc 4.4 mmol/L Normal 3.5-5.1 [facility] Comment on above: Performed By: #### C MP3, HEMDF #### [facility] [address] [place] [address] Sodium molar conc 137 mmol/L Normal 137-145 [facility] Comment on above: Performed By: #### C MP3, HEMDF #### [facility] [address] [place] [address] Albumin mass conc 4.5 g/dL Normal 3.5-5.0 [facility] Comment on above: Performed By: #### C MP3, HEMDF #### [facility] [address] [place] [address] Chloride molar conc 101 mmol/L Normal 98-107 [facility] Comment on above: Performed By: #### C MP3, HEMDF #### [facility] [address] [place] [address] Hemogram w/ Autodiffon 03-28 Abs Baso Cnt 0.0 10*3/uL Normal 0.0-0.2 [facility] Comment on above: Performed By: #### C MP3, HEMDF #### [facility] [address] [place] [address] Abs Neutrophile Cnt 2.8 10*3/uL Normal 1.8-7.0 [facility] Comment on above: Performed By: #### C MP3, HEMDF #### [facility] [address] [place] [address] Basophils/100 WBC (Bld) 0.3 % Normal 0.0-2.0 [facility] Comment on above: Performed By: #### C MP3, HEMDF #### [facility] [address] [place] [address] Eosinophils #/vol (Bld) 0.2 10*3/uL Normal 0.0-0.5 [facility] Comment on above: Performed By: #### C MP3, HEMDF #### [facility] [address] [place] [address] Eosinophils/100 WBC (Bld) 2.8 % Normal 1.0-6.0 [facility] Comment on above: Performed By: #### C MP3, HEMDF #### [facility] [address] [place] [address] Erythrocyte distribution width Ratio (RBC) 12.9 % Normal 11.5-14.5 [facility] Comment on above: Performed By: #### C MP3, HEMDF #### [facility] [address] [place] [address] Granulocytes/100 WBC (Bld) 41.3 % Normal 40.0-80.0 [facility] Comment on above: Performed By: #### C MP3, HEMDF #### [facility] [address] [place] [address] Hematocrit Volume Fraction (Bld) 41.6 % Normal 40.0-52.0 [facility] Comment on above: Performed By: #### C MP3, HEMDF #### [facility] [address] [place] [address] Hemoglobin mass conc (Bld) 14.3 g/dL Normal 13.0-18.0 [facility] Comment on above: Performed By: #### C MP3, HEMDF #### [facility] [address] [place] [address] Lymphocytes #/vol (Bld) 3.2 10*3/uL Normal 1.0-4.3 [facility] Comment on above: Performed By: #### C MP3, HEMDF #### [facility] [address] [place] [address] Lymphocytes/100 WBC (Bld) 46.6 % High 20.0-40.0 [facility] Comment on above: Performed By: #### C MP3, HEMDF #### [facility] [address] [place] [address] MCH Entitic mass (RBC) 29.2 pg Normal 26.0-34.0 [facility] Comment on above: Performed By: #### C MP3, HEMDF #### [facility] [address] [place] [address] MCHC mass conc (RBC) 34.5 % Normal 32.0-36.0 [facility] Comment on above: Performed By: #### C MP3, HEMDF #### [facility] [address] [place] [address] MCV Entitic volume (RBC) 84.9 fL Normal 80.0-98.0 [facility] Comment on above: Performed By: #### C MP3, HEMDF #### [facility] [address] [place] [address] Monocytes #/vol (Bld) 0.6 10*3/uL Normal 0.0-0.8 [facility] Comment on above: Performed By: #### C MP3, HEMDF #### [facility] [address] [place] [address] Monocytes/100 WBC (Bld) 9.0 % Normal 2.0-10.0 [facility] Comment on above: Performed By: #### C MP3, HEMDF #### [facility] [address] [place] [address] Platelet mean volume Entitic volume (Bld) 8.7 fL Normal 7.4-10.4 [facility] Comment on above: Performed By: #### C MP3, HEMDF #### [facility] [address] [place] [address] Platelets #/vol (Bld) 218 10*3/uL Normal 140-440 [facility] Comment on above: Performed By: #### C MP3, HEMDF #### [facility] [address] [place] [address] RBC #/vol (Bld) 4.90 10*6/uL Normal 4.40-5.90 [facility] Comment on above: Performed By: #### C MP3, HEMDF #### [facility] [address] [place] [address] WBC #/vol (Bld) 6.8 10*3/uL Normal 3.6-10.7 [facility] Comment on above: Performed By: #### C MP3, HEMDF #### [facility] [address] [place] [address] TS GELon 03-28-2018 TS GEL ABO Group: O Rh, Gel: NEG Antibody Screen Gel: NEG Normal [facility] Comment on above: Performed By: #### T SGL #### [facility] [address] [place] [address] CNOVon 03-08-2018 CNOV Office Visit (PNMDNA ) FRANSISCO CANTOR ([id number]) 1975 M Date Time Provider Department 03/08/18 12:30 PM ADAM ALONSO PNPATTY During your visit today, we recorded the following information about you: Pulse Weight 78/minute 119.3 kg Adam Alonso MD 03/08/2018 3:35 PM Signed [facility] Pain Management Department Date: March 08, 2018 [...] Knee pain - Pain management Dr. Bubba Sanzrebekah valdez suboxone - Substance abuse (HCC) PAST [...] Panel: No results found for: UQCANN, UQBNZL, TEA4MYG, UQAMPH, UQMAMP, UQBUPRE, UQNORBUP, UQMTHD, UQEDDP, UQTRAM, [...] diagnostic tests reviewed for today's visit: The [facility] EMR was reviewed during the visit IMAGING [...] am aware of the family/social history. Adam Alonso MD March 08, 2018 cc: SELF Phone: N/A Fax: Results of consultation to be transmitted via electronic medical record for those providers who practice within [facility] or with access to [place] via MD Connect, or via letter. Referring Provider: SELF [[id number]] Allergies As of Date: 03/08/2018 (No Known Allergies) Date Reviewed: 03/08/2018 Reviewed by: Rosy Vaca MA - Fully Assessed Reason for Visit: New Patient [172] Low Back Pain [126] Right Leg Pain [Other] Bilateral Knee Pain [1210] Primary Visit Diagnosis:Chronic pain of both knees [M25.561, M25.562, G89.29] Other Visit Diagnoses:Post-traumati c osteoarthritis of both knees [M17.2] Neuropathic pain [...] for 30 days. Encounter Status:Closed by ADAM ALONSO MD on 03/08/18 Normal [facility] PROGRESSon 03-08-2018 Protein mass conc HNO ID: [id number] Author: Adam Alonso Service: (none) Author Type: Physician Type: Progress Notes Filed: 03/08/2018 3:35 PM Note [facility] Date: March 08, 2018 [...] Panel: No results found for: UQCANN, UQBNZL, SAF4OOS, UQAMPH, UQMAMP, UQBUPRE, UQNORBUP, UQMTHD, UQEDDP, UQTRAM, [...] diagnostic tests reviewed for today's visit: The [facility] EMR was reviewed during the visit IMAGING [...] am aware of the family/social history. Adam Alonso MD March 08, 2018 cc: SELF Phone: N/A Fax: Results of consultation to be transmitted via electronic medical record for those providers who practice within [facility] or with access to [place] via MD Connect, or via letter. Normal [facility] CNOVon 03-04-2018 CNOV Office Visit (ORTHWS ) CRUSHERFRANSISCO Obregon ([id number]) 1975 M Date Time Provider Department 03/04/18 9:10 AM SHALINI GARCIA) CHUNG During your visit today, we recorded the following information about you: Weight 116.6 kg Shruti Acosta 03/05/2018 8:40 AM Signed AMB ROOMING INTAKE FLOWSHEET DATA [...] gel injections Patient is right handed. Shruti Garcia PA-C 03/05/2018 8:40 AM Signed Shalini Garcia PA-C Department [facility] Orthopaedics [facility] [address] [facility] [address] Dept: [phone] Dept March 04, 2018 CHIEF COMPLAINT: Recheck [...] long-term Celebrex. The patient has bilateral knee manager of data braces which she does not wear as they do not fit properly. I saw the patient in November and we submitted for Visco supplementation, we were able to get that approved but due to not have the particular type of Visco supplementation in stock. We also tried to get the patient to see our [employer] career representative to see if he will require a larger manager of data brace. 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 ASSESSMENT: M17.2 Post-traumatic osteoarthritis of both knees (primary encounter diagnosis) M25.561, M25.562, G89.29 Chronic pain of both knees PLAN: We will have the patient return for bilateral knee Visco supplementation once we have the durolane in stock. I will recheck once again to our [employer] career representative to see if they would be willing to assess his manager of data braces and make sure that they are the proper size. Mr. Fransisco Cantor was advised as to contrast therapies and/or to take analgesics/anti-inflamm atories as needed and all contraindications were reviewed. [...] osseous abnormality. Right knee suprapatellar joint effusion. Pharmacy Assistant: PSCB ? Transcribe Date/Time: Dec 12 2017 [...] anxiety) This note was partially generated using [employer] voice recognition system, and there may be some incorrect words, spellings, and punctuation that were not noted in checking the note before saving. Shalini Garcia PA-C Referring Provider: SHALINI GARCIA) [[id number]] Allergies As of Date: 03/04/2018 (No Known Allergies) Date Reviewed: 03/04/2018 Reviewed by: Shalini Garcia (Pa) - Fully Assessed Reason for Visit: Recheck [92] Cmt: Bilateral knee pain- asking about gel injections Primary Visit Diagnosis:Post-traumati c osteoarthritis of both knees [M17.2] Other Visit [...] M25.562, G*INVALID FOR* Encounter Status:Closed by SHALINI GARCIA PA-C on 03/05/18 Normal [facility] PROGRESSon 03-04-2018 Protein mass conc HNO ID: [id number] Author: Shalini Garcia (Pa) Service: (none) Author Type: Physician Conservation Planner Type: Progress Notes Filed: 03/05/2018 8:40 AM Note Text: Shalini Garcia PA-C Department of Orthopaedics Orthopaedics [address] [facility] [address] Dept: [phone] Dept March 04, 2018 CHIEF COMPLAINT: Recheck [...] long-term Celebrex. The patient has bilateral knee manager of data braces which she does not wear as they do not fit properly. I saw the patient in November and we submitted for Visco supplementation, we were able to get that approved but due to not have the particular type of Visco supplementation in stock. We also tried to get the patient to see our [employer] career representative to see if he will require a larger manager of data brace. 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 ASSESSMENT: M17.2 Post-traumatic osteoarthritis of both knees (primary encounter diagnosis) M25.561, M25.562, G89.29 Chronic pain of both knees PLAN: We will have the patient return for bilateral knee Visco supplementation once we have the durolane in stock. I will recheck once again to our [employer] career representative to see if they would be willing to assess his manager of data braces and make sure that they are the proper size. Mr. Fransisco Cantor was advised as to contrast therapies and/or to take analgesics/anti-inflamm atories as needed and all contraindications were reviewed. [...] osseous abnormality. Right knee suprapatellar joint effusion. Pharmacy Assistant: PSCB ? Transcribe Date/Time: Dec 12 2017 [...] 2010 L knee ACL and Menicus tear Medications: [...] anxiety) This note was partially generated using Dobango voice recognition system, and there may be some incorrect words, spellings, and punctuation that were not noted in checking the note before saving. Shalini Garcia PA-C [facility] Protein mass conc HNO ID: [id number] Author: Shruti Acosta Service: (none) Author Type: [...] injections Patient is right handed. Shr[facility] Letter Text Fransisco Cantor Date of - 1975 [facility] N - [id number] Shalini Garcia PA-C Department of Orthopaedic Surgery [address] [place] [id number] Office: [phone] 02/04/2018 RE: Fransisco Cantor [id number] To Whom It May Concern: I saw Fransisco Cantor in the Department of Orthopaedic Surgery at [facility] for his bilateral knee arthritis. Based on physical examination and medical assessment, I feel Fransisco Cantor will benefit from bilateral knee viscosupplementation and writing to ask that you approve the generic Durolane injection. The patient has tried numerous corticosteroid injections that he was receiving from Dr. Brown in [place]. The injections were initially helpful for about 3 months but are no longer of benefit. He takes Celebrex 100mg twice daily and has for a few years, has tried switching to meloxicam but did not found it to be as beneficial. The patient has worn bilateral knee manager of data braces daily for the past year, the braces have recently been adjusted by our Norbert Ibarra career representative to make sure they are still [...] not hesitate to contact my office. Sincerely, Shalini Garcia [facility]-C [facility] Tele[facility] ([facility]OV[facility]) CRUSHER,FRANSISCO ([id number]) 1975 M Date Time Provider Department 01/23/18 SHAILNI GARCIA (PA) During your visit today, we recorded the following information about you: Liliana Nicole 01/23/2018 11:34 AM Signed Patient called into office and expressed that he received denial from his insurance carrier for injection. Patients insurance company is requesting a generic form. Patient can be reached at [phone] . Please advise and thank you. Liliana Garcia PA-C 01/23/2018 12:51 PM Signed Peer to peer is scheduled for tomorrow. Shalini Garcia PA-C 01/28/2018 12:19 PM Signed Never received phone call at [place] office to complete the peer to peer. Can I call them or can we reschedule peer to peer? Tiffany Wheeler Ma 02/05/2018 11:08 AM Signed Appeal letter has been completed and faxed to insurance [employer] on 02/04/2018. This encounter will be closed. Please refer to original phone encounter. Allergies As of Date: 01/23/2018 (No Known Allergies) Date Reviewed: 12/12/2017 Reviewed by: Shalini Garcia (Pa) - Fully Assessed Reason for Visit: Question [4715] Prescriptions as of 01/23/2018 Sig: CELECOXIB 100 [...] M25.562, G*INVALID FOR* Encounter Status:Closed by SHALINI GARCIA PA-C on 01/23/[address] [facility] CNOVon 12-12-2017 CNOV Office Visit (ORTHWS ) CRUSHER,FRANSISCO ([id number]) 1975 M Date Time Provider Department 12/12/17 2:10 PM SHALINI GARCIA) ORTHWS During your visit today, we recorded [...] with Celebrex 100 mg twice daily. Shalini Garcia PA-C 12/13/2017 8:23 AM Signed Shalini Garcia PA-C Department of Orthopaedics Orthopaedics [address] [facility] [address] Dept: [phone] Dept December 12, 2017 CHIEF COMPLAINT: New [...] He is also been fitted with bilateral manager of data braces which he does not wear because they cause irritation to his skin and alonso splints. 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 Mr. Fransisco Cantor was advised as to contrast therapies and/or to take analgesics/anti-inflamm atories as needed and all contraindications were reviewed. [...] osseous abnormality. Right knee suprapatellar joint effusion. Pharmacy Assistant: RICHARD ? Transcribe Date/Time: Dec 12 2017 [...] Bubba valdez suboxone - Substance abuse (HCC) Past Surgical [...] anxiety) This note was partially generated using Dobango voice recognition system, and there may be some incorrect words, spellings, and punctuation that were not noted in checking the note before saving. Shalini Garcia PA-C Referring Provider: SELF [200] Allergies As of Date: 12/12/2017 (No Known Allergies) Date Reviewed: 12/12/2017 Reviewed by: Shalini Garcia (Pa) - Fully Assessed Reason for Visit: New problem [Other] Cmt: right knee pain, xray, last seen by BP 02-08-16, REF: Rheumatology. Reason For Visit History Recorded Primary Visit Diagnosis:Post-traumati c osteoarthritis of both knees [M17.2] Other Visit [...] M25.562, G*INVALID FOR* Encounter Status:Closed by SHALINI GARCIA PA-C on 12/13/[address] [facility] PROGRESSon 12-12-2017 Protein mass conc HNO ID: [id number] Author: Shalini Garcia (Pa) Service: (none) Author Type: Physician Conservation Planner Type: Progress Notes Filed: 12/13/2017 8:23 AM Note Text: Shalini Garcia PA-C Department of Orthopaedics Orthopaedics [address] [place] [address] Dept: [phone] Dept December 12, 2017 CHIEF COMPLAINT: New [...] He is also been fitted with bilateral manager of data braces which he does not wear because they cause irritation to his skin and alonso splints. 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 Mr. Fransisco Cantor was advised as to contrast therapies and/or to take analgesics/anti-inflamm atories as needed and all contraindications were reviewed. [...] osseous abnormality. Right knee suprapatellar joint effusion. Pharmacy Assistant: PSCB ? Transcribe Date/Time: Dec 12 2017 [...] pain - Pain management Dr. Mac in [facility] suboxone - Substance abuse (HCC) Past Surgical History: PAST SURGICAL HISTORY Procedure Laterality Date - PAST SURGICAL HISTORY OF 2010 L knee ACL and Menicus tear Family [...] anxiety) This note was partially generated using Dobango voice recognition system, and there may be some incorrect words, spellings, and punctuation that were not noted in checking the note before saving. Shalini Garcia PA-C Normal [facility] Protein mass conc HNO ID: [id number] Author: Jennifer Romeo RN Service: (none) Author [...] along with Celebrex 100 mg twice daily. Normal [facility] Protein [facility] conc HNO ID: [id number] Author: Beverley Kaur Rt Service: (none) Author Type: (none) Type: Progress Notes Filed: 12/12/2017 2:10 PM Note Text: Radiology Service Progress Note PATIENT NAME: Fransisco Marcusr DATE OF SERVICE: December 12, 2017 TIME: [...] Kaur Rt December 12, 2017 2:00 PM Normal [facility] XR KNEE 4V AP/PA BOTH+LAT/ME R RTon 12-12-2017 XR KNEE 4V AP/PA BOTH+LAT/TIM RT * * *Final Report* * * DATE [...] osseous abnormality. Right knee suprapatellar joint effusion. Pharmacy Assistant: PSCB Transcribe Date/Time: Dec 12 2017 2:52P Dictated by : MILAGROS ADAM MD This examination was interpreted and the report reviewed and electronically signed by: MILAGROS ADAM MD on Dec 12 2017 2:54PM EST [id number] Normal [facility] Office [facility] 01-17-2017 Protein mass conc Done Invalid Interpretation Code [facility] Work Phone: Protein mass conc yes Invalid Interpretation Code [facility] Work Phone: Tobacco smoking status NHIS Current every day smoker Invalid Interpretation Code [facility] Work Phone: Office Vis[place] 12-01-2016 Documentation of current medications (procedure) Done Invalid Interpretation Code [facility] Work Phone: Smoking cessation education (procedure) yes Invalid Interpretation Code [facility] Work Phone: [phone] Tobacco use [facility] Current every day smoker Invalid Interpretation Code [facility] Work Phone: [phone] Office Vis[facility] 09-21-2016 Documentation of current medications (procedure) Done Invalid Interpretation Code [facility] Work Phone: [phone] Smoking cessation education (procedure) yes Invalid Interpretation Code [facility] Work Phone: [phone] Tobacco use [facility] Current every day smoker Invalid Interpretation Code [facility] Work Phone: [phone] Office [facility] 08-21-2016 Documentation of current medications (procedure) Done Invalid Interpretation Code [facility] Work Phone: [phone] Documentation of current medications (procedure) T Invalid Interpretation Code [facility] Work Phone: [phone] Tobacco smoking status NHIS Current every day smoker [facility] Work Phone: [phone] Tobacco use [facility] Current every day smoker Invalid Interpretation Code [facility] Work Phone: [phone] Vital Signs Date Time Vital Sign Value Performing Clinician Lynette valdez 08-09-2023 19:14-0400 Body temperature 98.6 [degF] [facility] 08-09-2023 19:14-0400 Diastolic blood pressure 104 mm[Hg] [facility] 08-09-2023 19:14-0400 Heart rate 70 /min [facility] 08-09-2023 19:14-0400 Respiratory rate 17 /min [facility] 08-09-2023 19:14-0400 SaO2% (BldA) [Mass fraction] 100 % [facility] 08-09-2023 19:14-0400 Systolic blood pressure 149 mm[Hg] [facility] 08-09-2023 16:30-0400 Body height 195.58 cm [facility] 08-09-2023 16:30-0400 Body mass index (BMI) [Ratio] 28.9 kg/m2 [facility] 08-09-2023 16:30-0400 Body weight 110.73 kg [facility] 08-01-2023 11:49-0400 Body temperature 97.2 [degF] Ivana Rivas MD Work Phone: [facility] 08-01-2023 11:49-0400 Diastolic blood pressure 72 mm[Hg] Ivana Rivas MD Work Phone: [facility] 08-01-2023 11:49-0400 Heart rate 73 /min Ivana Rivas MD Work Phone: [facility] 08-01-2023 11:49-0400 Respiratory rate 18 /min Ivana Rivas MD Work Phone: [facility] 08-01-2023 11:49-0400 SaO2% (BldA) [Mass fraction] 96 % Ivana Rivas MD Work Phone: [facility] 08-01-2023 11:49-0400 Systolic blood pressure 122 mm[Hg] Ivana Rivas MD Work Phone: [facility] 07-29-2023 18:23-0400 Body height 195.6 cm Ivana Rivas MD Work Phone: [facility] 07-29-2023 18:23-0400 Body mass index (BMI) [Ratio] 28.04 kg/m2 Ivana Rivas MD Work Phone: [facility] 07-29-2023 18:23-0400 Body weight 107.28 kg Ivana Rivas MD Work Phone: [facility] 07-21-2023 19:40-0400 Diastolic blood pressure 92 mm[Hg] Justen Mehta MD Work Phone: [facility] 07-21-2023 19:40-0400 Heart rate 81 /min Justen Mehta MD Work Phone: [facility] 07-21-2023 19:40-0400 Respiratory rate 16 /min Justen Mehta MD Work Phone: [facility] 07-21-2023 19:40-0400 SaO2% (BldA) [Mass fraction] 98 % Justen Mehta MD Work Phone: [facility] 07-21-2023 19:40-0400 Systolic blood pressure 143 mm[Hg] Justen Mehta MD Work Phone: [facility] 07-21-2023 14:50-0400 Body height 195.6 cm Justen Mehta MD Work Phone: [facility] 07-21-2023 14:47-0400 Body temperature 98.2 [degF] Justen Mehta MD Work Phone: [facility] 07-18-2023 08:07-0400 Body temperature 97.9 [degF] [facility] 07-18-2023 08:07-0400 Diastolic blood pressure 70 mm[Hg] [facility] 07-18-2023 08:07-0400 Heart rate 89 /min [facility] 07-18-2023 08:07-0400 Respiratory rate 16 /min [facility] 07-18-2023 08:07-0400 SaO2% (BldA) [Mass fraction] 96 % [facility] 07-18-2023 08:07-0400 Systolic blood pressure 116 mm[Hg] [facility] 07-17-2023 10:02-0400 Body height 195.58 cm [facility] 07-17-2023 10:02-0400 Body mass index (BMI) [Ratio] 28.3 kg/m2 [facility] 07-17-2023 10:02-0400 Body weight 108.5 kg [facility] 05-27-2023 08:24-0500 Body height 195.58 cm [facility] 05-27-2023 08:24-0500 Body mass index (BMI) [Ratio] 29.7 kg/m2 [facility] 05-27-2023 08:24-0500 Body temperature 97.6 [degF] [facility] 05-27-2023 08:24-0500 Body weight 113.67 kg [facility] 05-27-2023 08:24-0500 Diastolic blood pressure 100 mm[Hg] [facility] 05-27-2023 08:24-0500 Heart rate 73 /min [facility] 05-27-2023 08:24-0500 Respiratory rate 16 /min [facility] 05-27-2023 08:24-0500 SaO2% (BldA) [Mass fraction] 98 % [facility] 05-27-2023 08:24-0500 Systolic blood pressure 164 mm[Hg] [facility] 05-24-2023 02:40-0500 Diastolic blood pressure 75 mm[Hg] [facility] 05-24-2023 02:40-0500 Heart rate 80 /min [facility] 05-24-2023 02:40-0500 Respiratory rate 18 /min [facility] 05-24-2023 02:40-0500 SaO2% (BldA) [Mass fraction] 96 % [facility] 05-24-2023 02:40-0500 Systolic blood pressure 110 mm[Hg] [facility] 05-24-2023 00:11-0500 Body height 195.58 cm [facility] 05-24-2023 00:11-0500 Body mass index (BMI) [Ratio] 31.1 kg/m2 [facility] 05-24-2023 00:11-0500 Body temperature 96.9 [degF] [facility] 05-24-2023 00:11-0500 Body weight 119.3 kg [facility] 02-24-2022 17:38-0400 Diastolic blood pressure 93 mm[Hg] Niya Camara MD Work Phone: [facility] 02-24-2022 17:38-0400 Respiratory rate 18 /min Niya Camara MD Work Phone: [facility] 02-24-2022 17:38-0400 Systolic blood pressure 154 mm[Hg] Niya Camara MD Work Phone: [facility] 02-24-2022 17:25-0400 Body temperature 99 [degF] Niya Camara MD Work Phone: [facility] 02-24-2022 17:25-0400 Heart rate 73 /min Niya Camara MD Work Phone: [facility] 02-24-2022 17:25-0400 SaO2% (BldA) [Mass fraction] 97 % Niya Camara MD Work Phone: [facility] 09-08-2021 03:18-0400 Body temperature 97.7 [degF] Dr. Grady Glez Work Phone: [facility] Work Phone: 09-08-2021 03:18-0400 Diastolic blood pressure 95 mm[Hg] Dr. Grady Glez Work Phone: [facility] Work Phone: 09-08-2021 03:18-0400 Heart rate 74 /min Dr. Grady Glez Work Phone: [facility] Work Phone: 09-08-2021 03:18-0400 Respiratory rate 16 /min Dr. Grady Glez Work Phone: [facility] Work Phone: 09-08-2021 03:18-0400 SaO2% (BldA) [Mass fraction] 98 % Dr. Grady Glez Work Phone: [facility] Work Phone: 09-08-2021 03:18-0400 Systolic blood pressure 135 mm[Hg] Dr. Grady Glez Work Phone: [facility] Work Phone: 09-06-2021 12:05-0400 Body height 195.[address] Grady Glez Work Phone: [facility] Work Phone: 09-06-2021 12:05-0400 Body weight 116.[address] Grady Glez Work Phone: [facility] Work Phone: 09-06-2021 10:38-0400 Body height 195.[address] Grady Glez Work Phone: [facility] Work Phone: 09-06-2021 10:38-0400 Body mass index (BMI) [Ratio] 30.4 kg/m2 Dr. Grady Glez Work Phone: [facility] Work Phone: 09-06-2021 10:38-0400 Body temperature 97.6 [degF] Dr. Grady Glez Work Phone: [facility] Work Phone: 09-06-2021 10:38-0400 Body weight 116.[address] Grady Glez Work Phone: [facility] Work Phone: 09-06-2021 10:38-0400 Diastolic blood pressure 98 mm[Hg] Dr. Grady Glez Work Phone: [facility] Work Phone: 09-06-2021 10:38-0400 Heart rate 77 /min Dr. Grady Glez Work Phone: [facility] Work Phone: 09-06-2021 10:38-0400 Respiratory rate 16 /min Dr. Grady Glez Work Phone: [facility] Work Phone: 09-06-2021 10:38-0400 SaO2% (BldA) [Mass fraction] 97 % Dr. Grady Glez Work Phone: [facility] Work Phone: 09-06-2021 10:38-0400 Systolic blood pressure 149 mm[Hg] Dr. Grady Glez Work Phone: [facility] Work Phone: 09-06-2021 07:48-0400 Body height 195.[address] Grady Glez Work Phone: [facility] Work Phone: 09-06-2021 07:48-0400 Body mass index (BMI) [Ratio] 32.5 kg/m2 Dr. Grady Glez Work Phone: [facility] Work Phone: 09-06-2021 07:48-0400 Body temperature 97.9 [degF] Dr. Grady Glez Work Phone: [facility] Work Phone: 09-06-2021 07:48-0400 Body weight 124.[address] Grady Glez Work Phone: [facility] Work Phone: 09-06-2021 07:48-0400 Diastolic blood pressure 104 mm[Hg] Dr. Grady Glez Work Phone: [facility] Work Phone: 09-06-2021 07:48-0400 Heart rate 83 /min Dr. Grady Glez Work Phone: [facility] Work Phone: 09-06-2021 07:48-0400 Respiratory rate 18 /min Dr. Grady Glez Work Phone: [facility] Work Phone: 09-06-2021 07:48-0400 SaO2% (BldA) [Mass fraction] 99 % Dr. Grady Glez Work Phone: [facility] Work Phone: 09-06-2021 07:48-0400 Systolic blood pressure 163 mm[Hg] Dr. Grady Glez Work Phone: [facility] Work Phone: 07-20-2021 13:15-0400 Body temperature 97.4 [degF] Dr. Grady Glez Work Phone: [facility] Work Phone: 07-20-2021 13:15-0400 Diastolic blood pressure 94 mm[Hg] Dr. Grady Glez Work Phone: [facility] Work Phone: 07-20-2021 13:15-0400 Heart rate 76 /min Dr. Grady Glez Work Phone: [facility] Work Phone: 07-20-2021 13:15-0400 Respiratory rate 18 /min Dr. Grady Glez Work Phone: [facility] Work Phone: 07-20-2021 13:15-0400 SaO2% (BldA) [Mass fraction] 97 % Dr. Grady Glez Work Phone: [facility] Work Phone: 07-20-2021 13:15-0400 Systolic blood pressure 133 mm[Hg] Dr. Grady Glez Work Phone: [facility] Work Phone: 07-20-2021 09:00-0400 Diastolic blood pressure 104 mm[Hg] Dr. Grady Glez Work Phone: [facility] Work Phone: 07-20-2021 09:00-0400 Heart rate 80 /min Dr. Grady Glez Work Phone: [facility] Work Phone: 07-20-2021 09:00-0400 SaO2% (BldA) [Mass fraction] 98 % Dr. Grady Glez Work Phone: [facility] Work Phone: 07-20-2021 09:00-0400 Systolic blood pressure 151 mm[Hg] Dr. Grady Glez Work Phone: [facility] Work Phone: 07-18-2021 13:02-0400 Body height 195.[address] Grady Glez Work Phone: [facility] Work Phone: 07-18-2021 13:02-0400 Body mass index (BMI) [Ratio] 32.4 kg/m2 Dr. Grady Glez Work Phone: [facility] Work Phone: 07-18-2021 13:02-0400 Body weight 124.[address] Grady Glez Work Phone: [facility] Work Phone: 07-18-2021 12:17-0400 Body temperature 97.9 [degF] Dr. Grady Glez Work Phone: [facility] Work Phone: 07-18-2021 12:17-0400 Diastolic blood pressure 101 mm[Hg] Dr. Grady Glez Work Phone: [facility] Work Phone: 07-18-2021 12:17-0400 Heart rate 72 /min Dr. Grady Glez Work Phone: [facility] Work Phone: 07-18-2021 12:17-0400 Respiratory rate 16 /min Dr. Grady Glez Work Phone: [facility] Work Phone: 07-18-2021 12:17-0400 SaO2% (BldA) [Mass fraction] 96 % Dr. Grady Glez Work Phone: [facility] Work Phone: 07-18-2021 12:17-0400 Systolic blood pressure 130 mm[Hg] Dr. Grady Glez Work Phone: [facility] Work Phone: 07-18-2021 09:44-0400 Body height 195.[address] Grady Glez Work Phone: [facility] Work Phone: 07-18-2021 09:44-0400 Body mass index (BMI) [Ratio] 15 kg/m2 Dr. Grady Glez Work Phone: [facility] Work Phone: 07-18-2021 09:44-0400 Body weight 57.[address] Grady Glez Work Phone: [facility] Work Phone: 04-23-2019 11:28-0500 Diastolic blood pressure 94 mm[Hg] Niya Camara MD Work Phone: [employer] Work Phone: 04-23-2019 11:28-0500 Heart rate 93 /min Niya Camara MD Work Phone: [employer] Work Phone: 04-23-2019 11:28-0500 Respiratory rate 18 /min Niya Camara MD Work Phone: [employer] Work Phone: 04-23-2019 11:28-0500 SaO2% (BldA) [Mass fraction] 97 % Niya Camara MD Work Phone: [employer] Work Phone: 04-23-2019 11:28-0500 Systolic blood pressure 146 mm[Hg] Niya Camara MD Work Phone: [employer] Work Phone: 04-23-2019 08:52-0500 Body mass index (BMI) [Ratio] 29.05 kg/m2 Niya Camara MD Work Phone: [employer] Work Phone: 04-23-2019 08:52-0500 Body temperature 96.8 [degF] Niya Camara MD Work Phone: [facility] Work Phone: 04-23-2019 08:52-0500 Body weight 111.13 kg Niya Camara MD Work Phone: [facility] Work Phone: 08-21-2016 09:40-0400 BMI (Body Mass Index) 29.88 kg/m2 [facility] Work Phone: 08-21-2016 09:40-0400 Body weight 114.[address] [facility] [place] Work Phone: 08-21-2016 09:40-0400 Height 195.58 cm [facility] Work Phone: 08-21-2016 09:40-0400 Weight 114.31 kg [facility] Work Phone: Encounters Encounter Date Encounter Type Care Provider Facility Start: 08-09-2023 End: 08-09-2023 Emergency department patient visit [facility] Facility:[facility] Start: 08-09-2023 End: 08-09-2023 Emergency department patient visit [facility] Work Phone: Start: 07-29-2023 End: 08-01-2023 Evaluation and management of inpatient DALY OHRI Facility:[facility] Start: 07-29-2023 End: 08-01-2023 Evaluation and management of inpatient Ivana Rivas MD Work Phone: ET8 Comment on above: [place] Start: 07-23-2023 End: 07-24-2023 ambulatory PHYSICIAN NO [facility] Start: 07-23-2023 End: 07-24-2023 Encounter for other general examination KIMO TOPETE [facility] Start: 07-21-2023 End: 07-21-2023 Emergency department patient visit DANNA OWENS Facility:[facility] Start: 07-21-2023 End: 07-21-2023 Emergency department patient visit Justen Mehta MD Work Phone: [facility] Emergency Department Start: 07-17-2023 End: 07-18-2023 Emergency department patient visit [facility] Facility:[facility] Start: 07-17-2023 End: 07-18-2023 Emergency department patient visit [facility] Work Phone: Start: 07-05-2023 End: 07-16-2023 Evaluation and management of inpatient NIYA CAMARA [facility] Start: 05-27-2023 End: 05-27-2023 Emergency department patient visit [facility] Facility:[facility] Start: 05-27-2023 End: 05-27-2023 Emergency department patient visit [facility] Work Phone: Start: 05-24-2023 End: 05-24-2023 Emergency department patient visit [facility] Facility:[facility] Start: 05-24-2023 End: 05-24-2023 Emergency department patient visit [facility] Work Phone: Start: 08-28-2022 ambulatory Adele Conrad DRY MOLDER Fac ility:[facility] Start: 02-24-2022 End: 02-24-2022 Emergency department patient visit NIYA Angelo JAX [facility] Start: 02-24-2022 End: 02-24-2022 Emergency department patient visit Niya Camara MD Work Phone: [facility] Emergency Department Comment on above: Abscess (Primary Dx) Start: 02-06-2022 End: 02-09-2022 ambulatory NIYA Stephens CAMARA [facility] Start: 02-06-2022 End: 02-08-2022 Subsequent hospital visit by physician Se 2 Xray [facility] Comment on above: Pain Start: 11-25-2021 End: 11-26-2021 ambulatory LENKA GAMBOA [facility] Start: 11-25-2021 End: 11-25-2021 Subsequent hospital visit by physician Niya Camara MD Work Phone: [facility] Start: 10-31-2021 End: 11-01-2021 ambulatory [facility] Start: 10-31-2021 End: 11-01-2021 Encounter for general adult medical examination without abnormal findings [facility] Start: 10-31-2021 End: 10-31-2021 Subsequent hospital visit by physician Niya Camara MD Work Phone: [facility] Start: 09-07-2021 Non-patient / Non-visit Dr. Nazario Glez Work Phone: [facility] Start: 09-06-2021 Non-patient / Non-visit Dr. Nazario Glez Work Phone: [facility] Start: 09-06-2021 End: 09-08-2021 Evaluation and management of inpatient Dr. Grady Glez Work Phone: [facility] Start: 07-20-2021 Non-patient / Non-visit Dr. Nazario Glez Work Phone: [facility] Start: 07-19-2021 Non-patient / Non-visit Dr. Nazario Glez Work Phone: [facility] Start: 07-18-2021 Non-patient / Non-visit Dr. Nazario Glez Work Phone: [facility] Start: 07-18-2021 End: 07-20-2021 Evaluation and management of inpatient [facility] Start: 06-02-2019 End: 06-02-2019 Subsequent hospital visit by physician Niya [facility] Start: 04-23-2019 End: 04-23-2019 Emergency department patient visit Niya Camara MD Work Phone: [facility] Emergency Department Comment on above: Chest pain, unspecif ied type (Primary Dx); Acute non-recurrent frontal sinusitis Start: 04-19-2018 Patient encounter procedure RASHEL TRAVIS Facility:[facility] Start: 03-08-2018 End: 03-08-2018 Patient encounter procedure ADAM ALONSO [facility] Start: 03-04-2018 End: 03-05-2018 Patient encounter procedure SHALINI DuffDOMINGUEZPat MONICA [facility] Start: 12-12-2017 End: 12-14-2017 Patient encounter procedure SHALINI JULIANA) SANIAGLENNA [facility] Procedures Date Procedure Procedure Detail Performing Clinician Start: 08-01-2023 Creatine kinase total K wenceslao Chen MD Work Phone: Start: 07-30-2023 Hepatitis b surf ant ibody hbsab Isaías Chen MD Work Phone: Start: 07-30-2023 Iadna hepatitis c qu ant & reverse tech ed/woodshop teacher Isaías Chen MD Work Phone: Start: 07-30-2023 Assay of magnesium Chris nasim Jiang MD Work Phone: Start: 07-29-2023 Drug tst prsmv instr mnt chem analyzers pr date Keegan Jiang MD Work Phone: Start: 07-29-2023 Creatine kinase total M matteo Jiang MD Work Phone: Start: 07-29-2023 EXTRA MICRO Elyssa felix DIET TECH-PACK OUT OPERATOR Work Phone: Start: 07-29-2023 EXTRA TUBES Margareth obregon MD, MPH Work Phone: Start: 07-29-2023 EXTRA URINE Margareth obregon MD, MPH Work Phone: Start: 07-29-2023 URINALYSIS REFLEX TO CULTURE Elyssa High APRN-PACK OUT OPERATOR Work Phone: Start: 07-29-2023 Urnls dip stick/tabl et reagent auto microscopy Elyssa High DIET TECH-PACK OUT OPERATOR Work Phone: Start: 07-29-2023 Ct cervical spine w/ o contrast material Adalyn M [place] DIET TECH-PACK OUT OPERATOR Work Phone: Start: 07-29-2023 Ct head/brain w/o co ntrast material Elyssa High DIET TECH-PACK OUT OPERATOR Work Phone: Start: 07-29-2023 Infectious agent dna /rna influenza 1st 2 types Elyssa High DIET TECH-PACK OUT OPERATOR Work Phone: Start: 07-29-2023 Sars-cov-2 detection by dna/rna Elyssa High DIET TECH-PACK OUT OPERATOR Work Phone: Start: 07-29-2023 Radiologic exam ches t single view Elyssa High DIET TECH-PACK OUT OPERATOR Work Phone: Start: 07-29-2023 End: 07-29-2023 Bilirubin direct Elyssa High DIET TECH-PACK OUT OPERATOR Work Phone: Start: 07-29-2023 CBC AND ELECTRONIC DIFF Elyssa High DIET TECH-PACK OUT OPERATOR Work Phone: Start: 07-29-2023 Complete blood count with white cell differential, automated Elyssa High DIET TECH-PACK OUT OPERATOR Work Phone: Start: 07-29-2023 GOLD TOP TUBE Elyssa High DIET TECH-PACK OUT OPERATOR Work Phone: Start: 07-29-2023 LAVENDER TOP TUBE Maria Eugenia High DIET TECH-PACK OUT OPERATOR Work Phone: Start: 07-29-2023 LT BLUE TOP TUBE Elyssa High DIET TECH-PACK OUT OPERATOR Work Phone: Start: 07-29-2023 MINT GREEN TOP TUBE Dianna High DIET TECH-PACK OUT OPERATOR Work Phone: Start: 07-29-2023 RAINBOW DRAW Elyssa felix DIET TECH-PACK OUT OPERATOR Work Phone: Start: 07-21-2023 TROPONIN 1 HOUR Elyssa High DIET TECH-PACK OUT OPERATOR Work Phone: Start: 07-21-2023 Radex wrist complete minimum 3 views Elyssa High DIET TECH-PACK OUT OPERATOR Work Phone: Start: 07-21-2023 Radiologic exam ches t single view Elyssa High DIET TECH-PACK OUT OPERATOR Work Phone: Start: 07-21-2023 Assay of magnesium Bob High DIET TECH-PACK OUT OPERATOR Work Phone: Start: 07-21-2023 CBC AND ELECTRONIC DIFF Elyssa High DIET TECH-PACK OUT OPERATOR Work Phone: Start: 07-21-2023 Complete blood count with white cell differential, automated Elyssa High DIET TECH-PACK OUT OPERATOR Work Phone: Start: 07-21-2023 GOLD TOP TUBE Elyssa High DIET TECH-PACK OUT OPERATOR Work Phone: Start: 07-21-2023 HIGH SENSITIVITY TRO PONIN I X2 Elyssa High DIET TECH-PACK OUT OPERATOR Work Phone: Start: 07-21-2023 LAVENDER TOP TUBE Maria Eugenia High DIET TECH-PACK OUT OPERATOR Work Phone: Start: 07-21-2023 LT BLUE TOP TUBE Elyssa High DIET TECH-PACK OUT OPERATOR Work Phone: Start: 07-21-2023 MINT GREEN TOP TUBE Dianna High DIET TECH-PACK OUT OPERATOR Work Phone: Start: 07-21-2023 RAINBOW DRAW Eylssa felix DIET TECH-PACK OUT OPERATOR Work Phone: Start: 07-21-2023 TROPONIN I INITIAL Bob High DIET TECH-PACK OUT OPERATOR Work Phone: Start: 07-17-2023 CT of head without contrast Start: 02-24-2022 Cul bact xcpt urine blood/stool aerobic isol NIYA CAMARA Start: 02-06-2022 Radex wrist complete minimum 3 views NIYA CAMARA Start: 02-06-2022 Radex wrist complete minimum 3 views Lenka Gamboa DIET TECH - PACK OUT OPERATOR Start: 11-25-2021 Iadna hepatitis c qu ant & reverse tech ed/woodshop teacher NIYA CAMARA Start: 10-31-2021 Acute hepatitis panel J OHLv CAMARA Start: 10-31-2021 Blood count complete auto&auto difrntl wbc NIYA CAMARA Start: 10-31-2021 C.TRACHOMATIS N.GONO RRHOEAE DNA, URINE NIYA CAMARA Start: 10-31-2021 Urnls dip stick/tabl et rgnt auto w/o microscopy NIYA CAMARA Start: 10-31-2021 Comprehensive metabo lic panel Lenka Heath Cooper DIET TECH - PACK OUT OPERATOR Start: 10-31-2021 Iadna chlamydia trac homatis amplified probe tq Lenka Heath Cooper DIET TECH - PACK OUT OPERATOR Start: 10-31-2021 Urnls dip stick/tabl et rgnt auto w/o microscopy Lenka Heath Cooper DIET TECH - PACK OUT OPERATOR Start: 06-02-2019 Hepatitis b surf ant ibody hbsab Roverto Guidry Work Phone: Start: 06-02-2019 Hepatitis c antibody Ch hemalatha Chao Work Phone: Start: 06-02-2019 Iaad ia hepatitis b surface antigen Roverto Guidry Work Phone: Start: 04-23-2019 Radiologic exam ches t 2 views Edmundo Galvan MD Work Phone: Start: 04-23-2019 End: 04-23-2019 Comprehensive metabolic panel Edmundo Galvan MD Work Phone: Start: 01-17-2017 End: 01-26-2017 Arthrocentesis aspir&/inj major jt/bursa w/o us Keegan Brown Work Phone: Start: 12-01-2016 End: 12-11-2016 Arthrocentesis aspir&/inj major jt/bursa w/o us Keegan Brown Work Phone: Start: 12-01-2016 End: 12-11-2016 Drain/inject, joint/bursa Keegan Brown Work Phone: Start: 08-21-2016 End: 08-21-2016 Arthrocentesis aspir&/inj major jt/bursa w/o us Keegan Brown Work Phone: Start: 08-21-2016 End: 08-21-2016 Documentation of current medications Nate Adames Start: 08-21-2016 End: 08-21-2016 Drain/inject, joint/bursa Keegan Brown Work Phone: Plan of Treatment Date Care Activity Detail Author Start: 2026 Shingles Vaccine (1 of 2) Shingles Vaccine (1 of 2) [employer] Work Phone: Start: 12-23-2023 Influenza vaccination INFLUENZ A VACCINE (Season Ended) [facility] Start: 08-09-2023 [facility] Start: 08-09-2023 Suicide precautions [facility] Start: 07-18-2023 End: 07-18-2023 [facility] Start: 07-17-2023 [facility] Start: 05-27-2023 Suicide precautions [facility] Start: 05-24-2023 [facility] Start: 12-22-2022 COVID-19 VACCINE ( season) COVID-19 VACCINE ( season) [facility] Start: 12-22-2022 Influenza vaccination INFLUENZA VACC INE (#1) [facility] Start: 12-22-2021 Influenza vaccination Flu vaccine (# 1) [facility] Start: 11-21-2021 Influenza vaccination Flu vaccine (# 1) [facility] Start: 2021 Screening for malign ant neoplasm of colon [facility] Start: 12-22-2018 Influenza vaccination Flu vaccine (# 1) [employer] Work Phone: Start: 01-17-2017 End: 01-17-2017 Appointment Appointment [facility] Work Phone: Start: 09-21-2016 End: 09-21-2016 Appointment Appointment [facility] Work Phone: Start: 09-07-2016 End: 09-07-2016 Appointment Appointment [facility] Work Phone: Start: 08-21-2016 End: 08-21-2016 Mri any jt lower extrem w/o contrast matrl MRI Joint Lower Extremity [facility] Work Phone: Start: 08-21-2016 End: 08-21-2016 Radiologic exam knee complete 4/more views X-Ray, Knee [facility] Work Phone: Start: 08-21-2016 End: 08-21-2016 Mri jnt of lwr extre w/o dye MRI Joint Lower Extremity [facility] Work Phone: Start: 08-21-2016 End: 08-21-2016 X-ray exam, knee, 4 or more X-Ray, Knee [facility] Work Phone: Start: 2016 Diabetes screen Diabetes screen [facility] Work Phone: Start: 2016 Lipid panel [facility] Start: 2016 Lipid screen Lipid screen [facility] Work Phone: Start: 2011 Diabetes screen Diabetes screen [facility] Start: 1995 DTaP/Tdap/Td vaccine (1 - Tdap) DTaP/Tdap/Td vaccine (1 - Tdap) [facility] Start: 1995 Hepatitis B vaccination HEP B VACCINE (1 of 3 - 19+ 3-dose series) [facility] Start: 1995 Third diphtheria, tetanus and acellular pertussis (DTaP) vaccination TDAP (ADULT) [facility] Start: 1991 HIV screen HIV screen [facility] Work Phone: Start: 1991 HIV screening [facility] Start: 1988 Depression Screen Depression Screen [facility] Start: 1987 DTaP/Tdap/Td vaccine (1 - Tdap) DTaP/Tdap/Td vaccine (1 - Tdap) [facility] Work Phone: Start: 1982 Pneumococcal 0-64 ye ars Vaccine (1 - PCV) Pneumococcal 0-64 years Vaccine (1 - PCV) [employer] Start: 1982 Pneumococcal 0-64 ye ars Vaccine (1 of 1 - PPSV23) Pneumococcal 0-64 years Vaccine (1 of 1 - PPSV23) [employer] Work Phone: Start: 1982 PNEUMOCOCCAL VACCINE SERIES (1 of 2 - PCV) PNEUMOCOCCAL VACCINE SERIES (1 of 2 - PCV) [facility] Start: 1981 COVID-19 Vaccine (1) COVID-19 Vaccin e (1) [facility] [employer] Start: 1976 COVID-19 Vaccine (#1) COVID-19 Vacci ne (#1) [facility] [employer] Start: 1976 Hepatitis C screening HEPATITI S C VIRUS SCREENING [facility] Start: 1976 Tetanus vaccination TETANUS [facility] C.trachomatis N.gonorrhoeae DNA, Urine C.trachomatis N.gonorrhoeae DNA, Urine Microbiology Routine 10/31/2021 1:09 PM EDT [facility]: End: 02-24-2022 Culture, Wound Aerobic Only [facility] Work Phone: Comment on above: One Time for 1 Occur rences starting 02/24/2022 until 02/24/2022 End: 11-25-2021 Hep C Viral Load [facility] [employer] Comment on above: Once for 1 Occurrenc es starting 11/25/2021 until 11/25/2021 End: 10-31-2021 Hepatitis Panel, Acute [facility] [employer] Comment on above: Once for 1 Occurrenc es starting 10/31/2021 until 10/31/2021 End: 10-31-2021 HIV Screen [facility] [employer] Phone: Comment on above: Once for 1 Occurrenc es starting 10/31/2021 until 10/31/2021 Patient Education ED Anxiety Reaction [facility] Work Phone: Patient referral [facility] Work Phone: End: 07-21-2023 Standard ECG ECG ECG STAT One Time for 1 Occurrences starting 07/21/2023 until 07/21/2023 [facility] Comment on above: One Time for 1 Occur rences starting 07/21/2023 until 07/21/2023 End: 07-29-2023 Standard ECG ECG ECG Routine One Time for 1 Occurrences starting 07/29/2023 until 07/29/2023 [facility] Work Phone: Comment on above: One Time for 1 Occur rences starting 07/29/2023 until 07/29/2023 Payers Date Payer Category Payer Unknown [employer] [id number] 2023-Present [address] [place] [address] [id number] 2022 Self-pay [id number] 2015 Unknown [id number] 2015 Unknown [employer] [place] xxxxxxxxxxx 2015-Present [phone] CLAIMS DEPARTMENT [address] [place] [address] xxxxxxxxxxx [id number] 2015 Unknown [id number] 1976 Unknown [id number] 1976 Unknown [id number] 1976 Unknown [id number] 1976 Unknown [id number] 1976 Unknown [id number] 1976 Unknown [id number] 1976 Unknown [id number] 1976 Unknown [id number] Unknown [id number] Unknown [id number] Unknown [id number] Unknown [id number] Unknown [id number] Social History Date Type Detail Facility Start: 04-23-2019 End: 07-29-2023 Tobacco smoking status HIIS Current every day smoker [employer] Phone: History of tobacco use Cigarette Smoker [employer] Phone: Start: 04-23-2019 End: 07-29-2023 Cigarettes smoked current (pack per day) - Reported [facility] [employer] Phone: Start: 04-23-2019 End: 07-29-2023 Alcohol intake Ex-drinker (finding) [facility] Phone: Start: 03-28-2018 Tobacco Comment 20 YEARS [employer] Phone: Start: 1975 Sex Assigned At Not on file [employer] Phone: Start: 07-18-2021 End: 08-09-2023 Tobacco smoking status HIIS Unknown if ever smoked [facility] Start: 03-31-2019 None [facility] Start: 03-31-2019 Heroin;- [facility] Start: 08-01-2018 [facility]one [facility] Start: 03-31-2019 Cigarettes [facility] Start: 1975 Sex Assigned At Male [facility] Start: 03-28-2018 End: 07-29-2023 Tobacco use and exposure Smokeless tobacco non-user [employer] Work Phone: Start: 02-24-2022 History SDOH Alcohol Frequency 1 [employer] Work Phone: Start: 02-24-2022 History SDOH Alcohol Std Drinks 0 [employer] Work Phone: Start: 02-14-2022 End: 02-24-2022 Exposure to SARS-CoV-2 (event) Not sure [employer] Work Phone: Start: 07-29-2023 Gender identity Not on file [facility] Functional Status Date Assessment Result Facility 09-07-2021 Functional status Activity Ability Indepe ndent [facility] Work Phone: 09-07-2021 Functional status Patient Activity Chair [facility] Work Phone: 07-20-2021 Functional status Ambulates;Bathroom Priv ilege [facility] Work Phone: Mental Status Date Assessment Result Facility 07-17-2023 Cognitive function Voice/Name [facility] Work Phone: 09-07-2021 Cognitive function Voice/Name [facility] Work Phone: 07-20-2021 Cognitive function Voice/Name [facility] Work Phone: Clinical Notes 02-24-2022 to 08-01-2023 Plan of Care - Xochitl Ayala RN - 08/01/2023 1:14 PM EDTPlan of Care - Xochitl Ayala RN - 08/01/2023 1:14 PM EDTNursing Notes - Xochitl Ayala RN - 08/01/2023 11:50 AM EDTDischarge Instructions Note Date & Type Note Facility 08-01-2023 Plan of care note Problem: Adult Inpatient Plan of Care Goal: Plan of Care Review Outcome: Adequate for Discharge Goal: Patient-Specific Goal (Individualized) Outcome: Adequate for Discharge Goal: Absence of Hospital-Acquired Illness or Injury Outcome: Adequate for Discharge Goal: Optimal Comfort and Wellbeing Outcome: Adequate for Discharge Goal: Readiness for Transition of Care Outcome: Adequate for Discharge Problem: Pain Acute Goal: Optimal Pain Control and Function Outcome: Adequate for Discharge [facility] 08-01-2023 Miscellaneous Notes Problem: Adult Inpatient Plan of Care Goal: Plan of Care Review Outcome: Adequate for Discharge Goal: Patient-Specific Goal (Individualized) Outcome: Adequate for Discharge Goal: Absence of Hospital-Acquired Illness or Injury Outcome: Adequate for Discharge Goal: Optimal Comfort and Wellbeing Outcome: Adequate for Discharge Goal: Readiness for Transition of Care Outcome: Adequate for Discharge Problem: Pain Acute Goal: Optimal Pain Control and Function Outcome: Adequate for Discharge Report given to LISA Dunham at [facility] and paperwork faxed. Nurse aware of pickup time of 1230. Pt reporting increased anxiety requesting scheduled 1400 dose of ativan to be given early. Dr Ny notified and okay with dose being given early. Problem: OT - ADLs Goal: Lower Body Dressing - Patient will complete lower body dressing tasks with standby assistance using adaptive equipment/compensatory strategies as needed for improved ability to complete self-care activities. Outcome: Met Goal: Toileting - Patient will complete toileting task with supervision and adaptive equipment as needed for improved ability to safely complete self-care activities. Outcome: Met Problem: OT - Transfers Goal: Transfers Toilet/ Bedside Commode - Patient will transfer to/from toilet/bedside commode with supervision for improved ability to safely complete ADLs. Outcome: Met Problem: OT - Balance Goal: Balance - Standing - Patient will perform 5-7 minutes of functional task in standing with supervision and good balance to promote safety and improved balance required for self-care activities. Outcome: Met Problem: OT - Cognition Goal: Safety - Patient will demonstrate fair safety awareness during ADL routine with 2 or less cues for accuracy. Outcome: Met Problem: Adult Inpatient Plan of Care Goal: Plan of Care Review 07/31/20232157 by Kayleigh Michaud RN Outcome: Progressing 07/31/20232157 by Kayleigh Michaud RN Outcome: Progressing Goal: Patient-Specific Goal (Individualized) 07/31/20232157 by Kayleigh Michaud RN Outcome: Progressing 07/31/20232157 by Kayleigh Michaud RN Outcome: Progressing Goal: Absence of Hospital-Acquired Illness or Injury 07/31/20232157 by Kayleigh Michaud RN Outcome: Progressing 07/31/20232157 by Kayleigh Michaud RN Outcome: Progressing Goal: Optimal Comfort and Wellbeing 07/31/20232157 by Kayleigh Michaud RN Outcome: Progressing 07/31/20232157 by Kayleigh Michaud RN Outcome: Progressing Goal: Readiness for Transition of Care 07/31/20232157 by Kayleigh Mcihaud RN Outcome: Progressing 07/31/20232157 by Kayleigh Michaud RN Outcome: Progressing Problem: Pain Acute Goal: Optimal Pain Control and Function 07/31/20232157 by Kayleigh Michaud RN Outcome: Progressing 07/31/20232157 by Kayleigh Michaud RN Outcome: Progressing Patient's mother called for updates on son's condition, she says she would also call tomorrow morning for updates from physician as well. Assumed care of patient from Joanie GONZALEZ, assessment completed per policy, no noted changes from previous assessment unless otherwise documented. Pt. alert and oriented, vitals stable. Pt. oriented to call light and alarms. All questions were answered. Reassessment completed per policy, no noted changes from previous assessment unless otherwise documented. Pt. alert and oriented, vitals stable. Pt. oriented to call light and alarms. All questions were answered. Problem: Adult Inpatient Plan of Care Goal: Plan of Care Review Outcome: Progressing Goal: Patient-Specific Goal (Individualized) Outcome: Progressing Goal: Absence of Hospital-Acquired Illness or Injury Outcome: Progressing Goal: Optimal Comfort and Wellbeing Outcome: Progressing Goal: Readiness for Transition of Care Outcome: Progressing Problem: OT - Balance Goal: Balance - Standing - Patient will perform 5-7 minutes of functional task in standing with supervision and good balance to promote safety and improved balance required for self-care activities. Outcome: Progressing Problem: Pain Acute Goal: Optimal Pain Control and Function Outcome: Progressing Pt has met all stated PT goals and will be discharged from acute PT at this time. Pt to continue to mobilize with nursing staff until discharge. Please re-consult if there is a change in functional mobility. Thank you. Problem: PT - General Goals Goal: Stand/Squat Pivot Transfers - Patient will perform stand pivot transfer to/from bed/chair/commode with supervision and without an assistive device in order to improve functional mobility and safety. Outcome: Met Goal: Ambulation - Patient will ambulate 250 feet with supervision and without an assistive device to improve ability to safely navigate home and community. Outcome: Met Goal: Stairs - Patient will ascend/descend 5 stairs with supervision, without an assistive device, and single railing(s) to improve ability to safely navigate home and community. Outcome: Met Problem: Adult Inpatient Plan of Care Goal: Plan of Care Review Outcome: Progressing Goal: Patient-Specific Goal (Individualized) Outcome: Progressing Goal: Absence of Hospital-Acquired Illness or Injury Outcome: Progressing Goal: Optimal Comfort and Wellbeing Outcome: Progressing Goal: Readiness for Transition of Care Outcome: Progressing Problem: Pain Acute Goal: Optimal Pain Control and Function Outcome: Progressing Intervention: Prevent or Manage Pain Flowsheets (Taken 07/31/2023 0846) Medication Review/Management: medications reviewed Problem: PT - General Goals Goal: Stand/Squat Pivot Transfers - Patient will perform stand pivot transfer to/from bed/chair/commode with supervision and without an assistive device in order to improve functional mobility and safety. Outcome: Ongoing Goal: Ambulation - Patient will ambulate 250 feet with supervision and without an assistive device to improve ability to safely navigate home and community. Outcome: Ongoing Goal: Stairs - Patient will ascend/descend 5 stairs with supervision, without an assistive device, and single railing(s) to improve ability to safely navigate home and community. Outcome: Ongoing Second assessment completed, no significant changes noted otherwise charted. Patient has no unmet needs at the moment . Sitter at bedside.Plan of care ongoing. Problem: Adult Inpatient Plan of Care Goal: Plan of Care Review Outcome: Progressing Goal: Patient-Specific Goal (Individualized) Outcome: Progressing Goal: Absence of Hospital-Acquired Illness or Injury Outcome: Progressing Goal: Optimal Comfort and Wellbeing Outcome: Progressing Goal: Readiness for Transition of Care Outcome: Progressing Problem: Pain Acute Goal: Optimal Pain Control and Function Outcome: Progressing Spoke with the patients mother, Geneva Dinh, and gave an update about Fransisco. 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 She has tried to track down who gave him the diagnosis, but she has been unsuccessful. He was previously seen at a hospital in [place]. She states that he has never had an MRI or genetic testing. Isaías Chen MD PGY-1 Reassessment completed, no change from previous. Patient in bed resting with sitter at bedside. All of patient needs met at this time. Call light within reach, will continue to monitor. 07/30/23 1108 Patient Assessment Completed Patient Assessment Completed Initial Initial Discharge Planning Anticipated discharge disposition Acute [facility] Facility Transportation Available for Discharge Medicaid Transportation Anticipated DME none Anticipated Services at Discharge Outpatient follow up Admission Assessment Reason for Admission falls Is the patient able to participate in the assessment? Yes Information source Patient;Review of Medical Record Demographics Verified and Updated Yes Has the patient been admitted to any hospital in the last 30 days? No Advanced Care Planning Has the patient completed Advance Directives? Not Completed Referral to Social Work for Advance Care Planning? Patient Declines Legal Next of Kin Does the patient have a Guardian? No Spouse No Adult Child(leatha), List All Adult Children No Parent(s) - List All Living Parents Yes Name and Contact information Geneva Marcusr [phone] Referral to Social Work to Identify Legal Next of Kin? No Reviewed and Updated in Demographics? Yes Outpatient Providers Does patient have a primary care physician? No Is the patient agreeable to a referral or information on a primary care physician? Patient Agreeable Referral for primary care physician made to [facility] family/internal medicine Does the patient follow any specialists? No Reviewed and updated Care Team? Yes Environment/Caregivers Is the patient from a facility or skilled nursing? No Patient lives with [facility] Does the patient have a first floor set-up with bed and bathroom? No Patient Caregiving Responsibilities Self Patient-identified caregiver/support network Family Who does the patient identify as a teachable caregiver(s)? Parent(s) Services Does the patient use a home health or hospice agency? No Current with dialysis? No Does the patient use any community programs or services? No Does patient use DME? none Does the patient use oxygen? No Anticipated Changes Related to Illness/Injury? No Initial ADLs Prior to Arrival What is the patient's baseline physical functioning prior to this acute illness? independent What is the patient's baseline cognitive functioning prior to this acute illness? independent Is the patient's baseline functioning changed by this acute illness? Yes Changes observed Physical Are there therapy or specialists consults? Yes Select consult type PT;OT Does the patient's home require any home modifications for discharge? No CM to recommend therapy or other consults? No Medication Management Does the patient have prescription insurance coverage? Yes Is the patient on Anticoagulation? No [employer] Does the patient or career representative express financial concerns? No Employed? No Coping/Stress Concerns about patient s coping and stress? No Chart reviewed; introduced myself and my role as the CCM; pt interviewed and frederico moise confirmed; states he was living at [facility] prior to coming to the hospital and the plan is to dc back. He does not have or use any assistive devices. Has [employer]. Will continue to follow for any changes in dc needs. Transport per [employer]. FRANCIA is his mother, Geneva Dillard [employer] Case [employer]. Contact information correct in demographics. PCP: NONE RX coverage with his [employer] insurance. [facility] - [id number] [phone] [place] [address] Readmission Risk Score Risk of Readmission: 4.6 Category Reference: High:16-100 Mod-High:10-16 Mod-Low: 5-10 Low: 0-5 Mercy Maxwell RN BSN Care Management [phone] Problem: OT - ADLs Goal: Lower Body Dressing - Patient will complete lower body dressing tasks with standby assistance using adaptive equipment/compensatory strategies as needed for improved ability to complete self-care activities. Outcome: Ongoing Goal: Toileting - Patient will complete toileting task with supervision and adaptive equipment as needed for improved ability to safely complete self-care activities. Outcome: Ongoing Problem: OT - Transfers Goal: Transfers Toilet/ Bedside Commode - Patient will transfer to/from toilet/bedside commode with supervision for improved ability to safely complete ADLs. Outcome: Ongoing Problem: OT - Balance Goal: Balance - Standing - Patient will perform 5-7 minutes of functional task in standing with supervision and good balance to promote safety and improved balance required for self-care activities. Outcome: Ongoing Problem: OT - Cognition Goal: Safety - Patient will demonstrate fair safety awareness during ADL routine with 2 or less cues for accuracy. Outcome: Ongoing Problem: PT - General Goals Goal: Stand/Squat Pivot Transfers - Patient will perform stand pivot transfer to/from bed/chair/commode with supervision and without an assistive device in order to improve functional mobility and safety. 07/30/2023 1201 by Jovita Knight PT Outcome: Ongoing Goal: Ambulation - Patient will ambulate 250 feet with supervision and without an assistive device to improve ability to safely navigate home and community. 07/30/2023 1201 by Jovita Knight PT Outcome: Ongoing Goal: Stairs - Patient will ascend/descend 5 stairs with supervision, without an assistive device, and single railing(s) to improve ability to safely navigate home and community. 07/30/2023 1201 by Jovita Knight PT Outcome: Ongoing 2015: Pt is complaining of 8/10 leg and neck pain. HME/Morseli added one dose of Toradol. 0117: Pt unable to sleep. HME/Morseli added a one time dose of Benadryl. 0358: Pt still unable to sleep and requesting Hydroxyzine to help him sleep. HME/Morseli notified and medication added to JUN. Problem: Adult Inpatient Plan of Care Goal: Plan of Care Review Outcome: Progressing Goal: Patient-Specific Goal (Individualized) Outcome: Progressing Goal: Absence of Hospital-Acquired Illness or Injury Outcome: Progressing Goal: Optimal Comfort and Wellbeing Outcome: Progressing Goal: Readiness for Transition of Care Outcome: Progressing Secondary assessment completed per policy. Pt assessment unchanged from previous, unless noted in flowsheet. Pt resting in bed at this time with no wants or needs. Denies chest pain, SOB, or dizziness. Call light within reach, bed alarm turned on. Will continue to monitor. Overnight Cross Cover Call: Previous Progress Notes and/or H&P Reviewed. Notified by RN, patient reporting 8/10 neck and leg pain. Wants something stronger than tylenol, no recent documented use. On scheduled voltaren gel. Hx polysubstance abuse. Cr 0.74. Give toradol 15mg x1. 0145 Notified by RN, patient requesting something for sleep. Has had his PRN melatonin. Here with dystonia vs catatonia and risperidone/ingrezza being held. Added benadryl 50mg x1. 0414 Notified by RN, patient still not sleeping, requesting something else for sleep. He does have an allergy noted to trazodone. On clarification if he has a preferred sleep aide, he requests hydroxyzine. Added hydroxyzine 25mg x1. Pt also requesting an additional dose of pain medication, prior dose of toradol was effective. Reordered toradol 15mg x1. FU with primary team in AM. Harriett Bridges PA-C [facility] documented in this encounter [facility] 08-01-2023 History of Present illness Narrative Report given to [facility] and all needed paperwork provided for transfer. IV removed without any complications and patient safely ambulated to the cot. 08/01/23 1107 Final Discharge Planning Discharge Disposition Acute Psych Facility CM/SW AVS Portion Completed Yes Community Agency Name(s) For Handoff [facility] Name For Handoff [address] , [facility] [address] Phone For Handoff [phone] Fax For Handoff [phone] Plan Plan Pleas let SW know if the patient have any special needs at the time of discharge. The patient will need 1:1 supervision Plan Comments [facility] called the patient mother Geneva Cantor @ [phone] , we discussed that her son would discharge to [facility]. She asked were referral sent to facilities in [facility] where the facility if from so the could come and visit the patient to provide support to the patient. I mention nothing was said to me about making referrals in [place]. She asked if I would call Michell Lisa @ [phone], who is on the Board of Mental Health. Michell can assist with finding a place for the patient to discharge to for treatment near home. A voice mail was left on her voice mail and still no call back. So I called a in mental health place in [place] and they told me the near patient for psych was in [facility] called [facility] @ [phone]. The patient referral with remain with [facility] with a transport time of 12:30 pm with [facility]. SW will continue to follow up. JIGNESH Viveros Display Department Manager Acute Occupational Therapy Treatment Prior to Admission AM-PAC Score: PRIOR LEVEL AM-PAC Activity Raw Score: 24 PRIOR LEVEL AM-PAC Mobility Raw Score: 24 Current AM-PAC score(s): CURRENT AM-PAC Activity Raw Score: 24 Based on the above AM-PAC score(s), and OT clinical judgment, discharge destination recommendation is: (per care managers notes pt may return to [facility]. pt would need 24 hour SUP at DC destination to assist with initiating ADLs and completing IADLs) Mobility equipment available at home: none used ADL equipment available at home: none Equipment recommendations for discharge: to be determined (defer to next level of care) Current therapy frequency recommendation(s) in acute: no therapy warranted Activity Recommendations for outside of rehab session: +BRP ; up with staff Precautions and Weightbearing Status: OT Existing Precautions/Restrictions: (sitter) No critical lines at this time Patient Safety Communication Prior to Visit: Nursing Subjective: Pt reports feeling bored an wanting to go home Pain: General Pain Documentation (Adult, OB, Peds) Presence of Pain: denies pain/discomfort Presence of Pain Score (Auto-calculated): 0 Objective/Observation: Vitals/Vitals Responses to Treatment: No adverse response to OT noted O2 Device: room air Cognition Overall Cognitive Status: Impaired Arousal/Alertness: Appropriate responses to stimuli Mobility Assessment/Intervention: Supine to Sit Mobility Clarke Level: Supine->Sit: independent Sit to Supine Mobility Clarke Level: Sit->Supine: independent Transfer Assessment/Intervention: Sit to Stand Transfer Clarke Level: Sit->Stand: independent Stand to Sit Transfer Clarke Level: Stand->Sit: independent Functional Mobility: Functional Mobility Clarke Level: Functional Mobility/Gait: independent Functional Mobility Distance: Distance needed to access restroom Ambulation Distance (Feet): 15 CURRENT AM-PAC Daily Activity Inpatient Short Form Putting on/Taking Off Lower Body Clothin - No Assistance Bathin - No Assistance Toiletin - No Assistance Putting on/Taking Off Upper Body Clothin - No Assistance Groomin - No Assistance Eatin - No Assistance CURRENT AM-PAC Activity Raw Score: 24 CURRENT AM-PAC Activity Functional Limitation/Modifier: 0.00% Currently Impaired in Daily Activity - Interventions: Arrived to pt room with pt prone in bed and agreeable to therapy. Pt transferred EOB independently and proceeded to simulate LB dsg independently. Pt then stood with I and ambulated to BR with same whereupon pt simulated toileting independently. Pt agreeable to discharge from OT caseload this date. All therapeutic activities and ADL's were focused on increasing functional activity tolerance, strength, balance, and independence/safety with daily self-care and mobility tasks. Pt educated on compensatory strategies throughout session as needed in order to maximize independence with ADL performance. Encouraged pt to participate in therapeutic activities/ADLs as able in order to maximize I with ADLs. Patient verbalizes understanding via teach-back. Assessment & Plan: Patient Instruction/Education this session: Learners: Patient Education provided: Role of this discipline Plan for next session: RALPH OT this date Acute OT Goals Plan of Care by Mary Lou Fountain OT at 08/01/2023 10:51 AM Version 1 of 1 Problem: OT - ADLs Goal: Lower Body Dressing - Patient will complete lower body dressing tasks with standby assistance using adaptive equipment/compensatory strategies as needed for improved ability to complete self-care activities. Outcome: Met Goal: Toileting - Patient will complete toileting task with supervision and adaptive equipment as needed for improved ability to safely complete self-care activities. Outcome: Met Problem: OT - Transfers Goal: Transfers Toilet/ Bedside Commode - Patient will transfer to/from toilet/bedside commode with supervision for improved ability to safely complete ADLs. Outcome: Met Problem: OT - Balance Goal: Balance - Standing - Patient will perform 5-7 minutes of functional task in standing with supervision and good balance to promote safety and improved balance required for self-care activities. Outcome: Met Problem: OT - Cognition Goal: Safety - Patient will demonstrate fair safety awareness during ADL routine with 2 or less cues for accuracy. Outcome: Met OT treatment consisted of the following to work and progress towards the above goal(s): OT Evaluation and Treatment Time Self Care/Home Management (ADLs) Time Entry: 11 Treating Therapist: Mary Lou Fountain OT Additional Details: OT Co-Eval/Treatment Information Co-evaluation/co-treatment performed?: No simultaneous skilled care performed PPE used during patient interaction: gloves, facemask, protective eye shield Patient location at end of session: bed - flat Alarms on at end of session: (sitter present) Needs in reach. Time In: 1051 Time Out: 1102 Total Visit Time: 11 minutes Total Treatment Time (skilled, billable minutes): 11 minutes Upon discontinuation of Acute Care Occupational Therapy Services or patient discharge from the hospital this note represents the current Occupational Therapy Discharge Summary. Department of Pharmacy Medication Reconciliation Note Patient: Fransisco Cantor Room/Bed: I have reviewed the patient's discharge medication list. The patient's medication list is correct and accurate to the best of my knowledge. START taking these medications START taking these medications Morning Afternoon Evening Bedtime As Needed Diclofenac sodium 1 % GEL gel Apply 2 g topically 4 times daily. Commonly known as: VOLTAREN Last time this was given: 2 g on July 31, 2023 8:34 PM LORazepam 2 MG TABS Take 1 tablet by mouth every 8 hours for 7 days. Commonly known as: ATIVAN For diagnoses: Catatonia Last time this was given: 2 mg on August 01, 2023 5:43 AM Melatonin 3 MG TABS Take 2 tablets by mouth at bedtime. Last time this was given: 6 mg on July 31, 2023 8:34 PM Nicotine 21 MG/24HR PT24 patch Place 1 patch on skin every 24 hours. Commonly known as: NICODERM CQ Last time this was given: Ask your nurse or doctor * Nicotine 4 MG GUM gum Take 1 Each by mouth every 2 hours as needed for Smoking cessation. Commonly known as: NICORETTE Last time this was given: Ask your nurse or doctor * nicotine 4 MG LOZG 1 lozenge by Buccal route every 2 hours as needed for Smoking cessation. Commonly known as: COMMIT Last time this was given: Ask your nurse or doctor QUEtiapine 50 MG TABS Take 1 tablet by mouth at bedtime. Commonly known as: SEROquel Last time this was given: 50 mg on July 31, 2023 8:34 PM very important * The same medication is listed twice. Please discuss with your provider. CHANGE how you take these medications CHANGE how you take these medications Morning Afternoon Evening Bedtime As Needed Venlafaxine 75 MG cap XR capsule XR Take 1 capsule by mouth daily. Commonly known as: EFFEXOR-XR What changed: The quantity you have reported taking of this medication has changed. Last time this was given: 75 mg on August 01, 2023 8:26 AM CONTINUE taking these medications CONTINUE taking these medications Morning Afternoon Evening Bedtime As Needed Acetaminophen 325 MG tablet Take 2 tablets by mouth every 6 hours as needed for Mild Pain. Commonly known as: TYLENOL Last time this was given: 650 mg on July 30, 2023 7:51 AM amLODIPine 5 MG TABS Take 1 tablet by mouth daily. Commonly known as: NORVASC Last time this was given: 5 mg on August 01, 2023 8:26 AM B Complex CAPS Take 1 capsule by mouth daily. baclofen 10 MG TABS Take 1 tablet by mouth 3 times daily as needed (pain). Commonly known as: LIORESAL cyanocobalamin 1000 MCG TABS Take 1 tablet by mouth daily. Commonly known as: VITAMIN B12 hydrOXYzine hcl 50 MG TABS Take 1 tablet by mouth every 6 hours as needed for Anxiety. Commonly known as: ATARAX Last time this was given: 50 mg on August 01, 2023 8:25 AM MAALOX PLUS PO Take 30 mL by mouth every 4 hours as needed (indigestion). Ondansetron 4 MG ODT tablet Take 1 tablet by mouth every 4 hours as needed for Nausea / Vomiting. Commonly known as: ZOFRAN-ODT STOP taking these medications STOP taking these medications cloNIDine 0.1 MG TABS Commonly known as: CATAPRES donepezil 5 MG TABS Commonly known as: ARICEPT Lisinopril 20 MG TABS Commonly known as: PRINIVIL risperiDONE 3 MG TABS Commonly known as: risperDAL Valbenazine Tosylate 40 MG CAPS Please feel free to contact me or the pharmacy with any further questions. Name: Julianna Samuel RPH Phone #: [phone] Date/Time: 08/01/2023 10:39 AM Time Spent: 2 minutes 08/01/23 1001 Final Discharge Planning Discharge Disposition Acute Psych Facility CM/SW AVS Portion Completed Yes Community Agency Name(s) For Handoff [facility] Name For Handoff [address], [facility] [address] Phone For Handoff [phone] Fax For Handoff [phone] Plan Plan Please let SW know if the patient will have any special needs for discharge. The patient will need 1:1 supervision Plan Comments Discharge to Inpt Psych The patient was accepted to [facility] for treatment on [address]. The staff was notified of the patient discharge to a new facility for the patient to had treatment. The patient will have ambulance transport set up with [facility] @ 12:30 pm. SW will continue to follow up. JIGNESH Viveros Display Department Manager A referral was sent to [facility] [phone] /[phone] fax. The clinical was sent to see if they will be able to accept the patient for treatment. SW will continue to follow up. JIGNESH Viveros Display Department Manager Acute Physical Therapy Treatment Prior to Admission [facility] score(s): PRIOR LEVEL AM-PAC Mobility Raw Score: 24 PRIOR LEVEL AM-PAC Activity Raw Score: 24 Current AM-PAC score(s): CURRENT AM-PAC Mobility Raw Score: 23 Based on the above AM-PAC score(s) and PT clinical judgment, patient is a good candidate for discharge to (per the care management notes, possible return to [facility].) Mobility equipment available at home: none used ADL equipment available at home: none Equipment needed for discharge: to be determined Current therapy frequency recommendation in acute: Therapy Frequency: 3 times a week Activity Recommendations for outside of rehab session: +BRP and ambulate with staff PRN. Precautions and Weightbearing Status: Patient Safety Communication Prior to Visit: Nursing Subjective: I want to shower Pain: General Pain Documentation (Adult, OB, Peds) Presence of Pain: not present: non-verbal indicator of pain/discomfort Presence of Pain Score (Auto-calculated): 0 Objective/Observation: Vitals/Vitals Responses to Treatment: No vitals taken, no adverse reaction from PT noted. O2 Device: room air Cognition Arousal/Alertness: Appropriate responses to stimuli Extremity Assessments: See PT Evaluation flowsheet for Extremity Measurement updates. Skin and Edema: Balance: Sitting Balance Static Sitting-Level of Assistance: Independent Dynamic Sitting-Level of Assistance: Independent Standing Balance Static Standing-Level of Assistance: Independent Dynamic Standing-Level of Assistance: Independent Mobility Assessment/Intervention: Supine to Sit Mobility Clarke Level: Supine->Sit: modified independence Bed Features/Set-up: Supine->Sit: Head of bed elevated Sit to Supine Mobility Clarke Level: Sit->Supine: modified independence Bed Features/Set-up: Sit->Supine: Head of bed elevated Transfer Assessment/Intervention: Sit to Stand Transfer Clarke Level: Sit->Stand: supervision Skilled Rationale: Verbal cues, Cues for increased safety Skilled Intervention/Details: Sit->Stand: Pt completed impulsively. Gait/Functional Mobility Assessment/Intervention: Gait Assessment Clarke Level: Gait: supervision Ambulation Distance (Feet): 350 Gait Skilled Rationale: verbal Skilled Intervention/Details - Gait: Pt ambulated in vela without device of difficulty Stairs Assessment/Intervention: Stairs Assessment Skilled Intervention/Details - Stairs: Pt declined stairs and appeared fixated on getting a shower Outcome Score(s): CURRENT [facility] Basic Mobility Inpatient Short Form Turning over in bed: 4 - No Assistance Moving from lying on back to sittin - No Assistance Moving to and from bed to chair: 4 - No Assistance Sitting/standing from chair: 4 - No Assistance Walk in hospital room: 4 - No Assistance Climbing 3-5 steps with a railin - A Little Assistance CURRENT [facility] Mobility Raw Score: 23 CURRENT [facility] Mobility Functional Limitation: 11.20% Impaired in Basic Mobility Interventions: Assessment & Plan: Pt ambulated in vela without difficulty, use of AD, or LOB. Patient Instruction/Education this session: Learners: Patient Education provided: Activity outside of therapy, Safety Plan for next session: Follow up with PT per POC Acute PT Goals Plan of Care by Fide Carreno PTA at 07/31/2023 9:15 AM Version 1 of 1 Problem: PT - General Goals Goal: Stand/Squat Pivot Transfers - Patient will perform stand pivot transfer to/from bed/chair/commode with supervision and without an assistive device in order to improve functional mobility and safety. Outcome: Ongoing Goal: Ambulation - Patient will ambulate 250 feet with supervision and without an assistive device to improve ability to safely navigate home and community. Outcome: Ongoing Goal: Stairs - Patient will ascend/descend 5 stairs with supervision, without an assistive device, and single railing(s) to improve ability to safely navigate home and community. Outcome: Ongoing PT treatment consisted of the following to progress towards the above goal(s): PT Evaluation and Treatment Time Gait Training Time Entry: 9 Treating Therapist: Fide Carreno PTA Additional Details: Patient location at end of session: bed with head of bed elevated Alarms on at end of session: none altered Needs in reach. Time In: 914 Time Out: 923 Total Visit Time: 9 minutes Total Treatment Time (skilled, billable minutes): 9 minutes Upon discontinuation of Acute Care Physical Therapy Services or patient discharge from the hospital this note represents the current Physical Therapy Discharge Summary. Internal Medicine Daily Progress Note Patient: Fransisco Cantor, 1975, [id number] Physician: Isaías Chen MD, PGY 1, Gen Med A service Subjective/Interval History: NAEO. Sitting comfortably in bed this morning. States he is feeling much better. No longer has any pain in his jaw, neck, or knees. He states he feels antsy and restless. Objective: Vitals: 07/30/232318 BP: 105/59 Pulse: 63 Resp: 18 Temp: 98.5 F (36.9 C) SpO2: 93% O2 Device: room air (07/30/232318) Gen: NAD, well-appearing, sitting comfortably in bed HENT: EOM grossly intact, MMM, able to open mouth fully Cardio: RRR, normal S1/S2, no murmur Resp: CTA b/l, no increased WOB GI: soft, NT, ND MSK: no joint swelling or erythema Ext: warm and well-perfused, no LE edema Neuro: alert and oriented, moving all four extremities Data Review: CT SPINE CERVICAL WITHOUT CONTRAST Final Result IMPRESSION: No fracture or traumatic malalignment in the cervical spine. I personally viewed and interpreted these images and I have reviewed and approved this report. HEAD WITHOUT CONTRAST Final Result IMPRESSION: No acute intracranial findings. I personally viewed and interpreted these images and I have reviewed and approved this report. CHEST 1 VIEW PORTABLE Final Result IMPRESSION: No acute cardiopulmonary disease Assessment/Plan: Fransisco Cantor is a 48 y.o. male with a history of an unspecified psychiatric disorder, HTN, and polysubstance use who presents on 07/29/2023 from [facility] with jaw stiffness, weakness, and a fall. Catatonia Jaw Stiffness: Per psych. Presentation is consistent with catatonia. Jaw symptoms are exacerbated by fall. - s/p ativan in the ED - s/p benadryl - Ativan 2mg TID - Continue to hold antipsychotics - Continue Effexor - PRN flexeril , ibuprofen for pain - Psych following [] Monitor CK Fall/Weakness: Reported [place] disease: Patient has been in a wheel chair for the past 3-4 days. Patient attributing to not eating. Currently no back pain. 5-/5 BLUE strength. Intact sensation. Unclear etiology. He has never had genetic testing or MRI to eval Malu disease further. - CK WNL - CT Head and Neck negative for acute fracture - PT/OT consult [] Neurology consult Unspecified psychiatry disorder: Patient reports a history of bipolar 1 and schizophrenia. He thinks he is being evaluated for malu's. He has no family history of malu's. Denies SI/HI/Hallucinations - continue effexor - holding risperidone 3mg daily and Ingrezza 40 mg daily in the setting of jaw issues as above - Start seroquel 50 mg nightly - Psych following Starvation Ketosis: Due to being unable to open mouth. UA with ketones - Regular diet with ensures - s/p IVF Neck Pain, improved: - Tylenol PRN - Ibuprofen PRN Insomnia: - hydroxyzine PRN DVT PPX: lovenox Code Status: Full Code Disposition: pending improvement of symptoms and psych evaluation Discussed with team and attending, Daly Ny MD on rounds. Signed, Isaías Chen MD Internal Medicine Prelim PGY1 Associated attestation - Daly Ny MD - 07/31/2023 10:25 PM EDT Attending Addendum (GC): This patient was discussed, examined, and evaluated with the resident physician on the day of the encounter. I have independently confirmed essential components of the medical history and the physical examination.. I agree with the therapeutic plan outlined in the resident note, with the following addendum: Data Reviewed Current Admission Labs: Independent interpretation performed. Current admission Imaging : Independent interpretation performed. Consult notes and notes from care team Fransisco Cantor was seen today for follow up of chronic problems as listed below. Main concerns today: anxiety Problem list includes: Principal Problem: Falls Active Problems: Polysubstance use disorder Bipolar 1 disorder Essential hypertension Catatonia Anxiety Plan today includes: Improved symptoms , although very anxious today . Appreciate help from Psych and neurology Daly Ny MD, Agricultural Extension Educator of Clinical Medicine General Internal Medicine The patient will not return to [facility] at the time of discharge. A referral will be sent to a new Psych facility will be sent for the patient that can mange the patient care. SW will continue to follow up. JIGNESH Viveros Display Department Manager The patient is from [facility], SW will continue to follow the patient. If the patient need to return to [facility] the patient will still need psych and a referral will have to be made back to the facility. SW will continue to follow up. JIGNESH Viveros Display Department Manager Acute Occupational Therapy Evaluation Prior to Admission AM-PAC Score: PRIOR LEVEL AM-PAC Activity Raw Score: 24 Current AM-PAC score(s): CURRENT AM-PAC Activity Raw Score: 19 Based on the above AM-PAC score(s) and OT clinical judgment, discharge destination recommendation is: (per care managers notes pt may return to [facility]. pt would need 24 hour SUP at DC destination to assist with initiating ADLs and completing IADLs) Mobility equipment available at home: none used ADL equipment available at home: none Equipment recommendations for discharge: to be determined (defer to next level of care) Current therapy frequency recommendation(s) in acute: 2 times a week Activity Recommendations for outside of rehab session: Chair for all meals and during the day, +BRP with 2ww and staff assist Precautions and Weightbearing Status: OT Existing Precautions/Restrictions: fall No critical lines at this time Patient Safety Communication Prior to Visit: Nursing, Rehab team Subjective: pt cooperative and agreeable to OT evaluation. pt reports I fell out of the wc Pain: General Pain Documentation (Adult, OB, Peds) Presence of Pain: complains of pain/discomfort Pain Location: leg, left, leg, right Home Setting Residence: Apartment Lives With: alone First floor setup: bedroom, tub shower Number of stairs to enter home: 2 Number of stairs in home: 0 Stair Railings at Home: entry - with rail Mobility Equipment Available: none used ADL Equipment Available: none Home Environment Details: information obtained via pt whom is questionable historian Previous Level of Function Prior level ADL Overview: Independent with all ADLs Dominant Hand: Right Bed Mobility/Transfers: independent Ambulation Skills: independent Assistive Device: none used Level of Ambulation: household Prior Level of Function Details: per the pt, no mobility issues at baseline IADL History IADLs: independent Primary Language: Cymraes Past Medical History: Diagnosis Date Hypertension Tobacco use disorder Past Surgical History: Procedure Laterality Date KNEE REPLACEMENT Bilateral Objective/Observation: Vitals/Vitals Responses to Treatment: WFL, no adverse response noted throughout OT session O2 Device: room air Vision Screen Currently wearing corrective lenses: No Visual Impairments Observed?: No Speech Speech: no gross deficits noted Successful Methods (Communication Strategies): verbal speech Hearing Hearing: no gross deficits noted Cognition Overall Cognitive Status: Impaired Arousal/Alertness: Appropriate responses to stimuli Orientation Level: Oriented to person, Oriented to situation Following Commands: Follows one step commands with increased time, Follows one step commands with repetition Safety Judgment: Decreased awareness of need for assistance, Decreased awareness of need for safety Awareness of Errors: Assistance required to identify errors made, Assistance required to correct errors made, Decreased awareness of errors Deficits: Decreased awareness of deficits Attention Span: Appears intact Memory: Unable to assess Problem Solving: Assistance required to generate solutions, Assistance required to identify errors made, Assistance required to implement solutions Cognition Comments: cooperative throughout ADLs: ADL Assessment: LE Dressing Deficit ADL Anticipated Performance (ADLs not directly observed this session): Toileting, UE Dressing, Bathing, Grooming, Eating (based on clinical judgement and skilled observation) Eating Assistance: Independent Grooming Assistance: Stand by Grooming Location: edge of bed, seated in chair Grooming Deficit: Increased time to complete, Activity tolerance, Balance, Retrieval of items, Initiation Bathing Assistance: Minimal Bathing Location: edge of bed, seated in chair Bathing Deficit: Increased time to complete, Activity tolerance, Pain, Balance, Wash/Dry Back, Wash/Dry Right lower leg including foot, Wash/Dry Left lower leg including foot, Retrieval of items, Problem solving, Initiation, Follows safety/precautions UE Dressing Assistance: Stand by UE Dressing Location: edge of bed UE Dressing Deficit: Increased time to complete, Activity tolerance, Pain, Balance, Retrieval of items LE Dressing Assistance: Minimal LE Dressing Location: edge of bed LE Dressing Deficit: Increased time to complete, Activity tolerance, Pain, Balance, Don/doff R sock, Don/doff L sock, Retrieval of items, Initiation, Problem solving, Follows safety/precautions LE Dressing Skilled Rationale (Verbal/Tactile/Visual/Demonstrati on): Facilitate positioning, Cues for cognitive deficit, Technique of activity, Cues for increased safety LE Dressing Intervention/Details: OT educated pt on adaptive technqiues and strategies for completing LB dressing tasks at EOB. min A to doff soiled socks and don clean socks using figure 4 technique Toilet Assistance: Minimal Toileting Location: toilet Toileting Deficit: Increased time to complete, Activity tolerance, Pain, Balance, Perineal hygiene, Problem solving, Initiation Extremity Assessments: Hand Crew Person Strength Hand Crew Person Strength Interpretation: Left below expected range (weak), Right below expected range (weak) RUE Assessment RUE Assessment: AROM WFL, Strength Impaired Right UE Assessment Details: grossly 3+/5 MMT LUE Assessment LUE Assessment: AROM WFL, Strength Impaired Left UE Assessment Details: grossly 3+/5 MMT Balance: Sitting Balance Static Sitting-Level of Assistance: Supervision Dynamic Sitting-Level of Assistance: Contact guard Standing Balance Static Standing-Level of Assistance: Contact guard Dynamic Standing-Level of Assistance: Contact guard Standing-Balance Support: 2 wheeled walker, Gait belt Neuro: Sensation Overall Sensation: Impaired Light Touch: Diminished, Bilateral, Upper extremity, Lower extremity Sensation Comments: pt reports tingling in B LE and hands/fingertips Gross Coordination Gross Coordination: bilat UE intact Fine Motor Coordination Additional Documentation: (WFL for ADL tasks) Skin and Edema: Skin Integrity 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) Mobility Assessment: Supine to Sit Mobility Clarke Level: Supine->Sit: stand-by assist Bed Features/Set-up: Supine->Sit: Head of bed elevated Skilled Rationale: Verbal cues, Technique of activity, Initiation and execution of task, Cues for increased safety Skilled Intervention/Details: Supine->Sit: SBA to complete transition to EOB, cues for initiation and technique Sit to Supine Mobility Clarke Level: Sit->Supine: stand-by assist Bed Features/Set-up: Sit->Supine: Flat Skilled Rationale: Technique of activity, Verbal cues, Initiation and execution of task, Cues for increased safety Skilled Intervention/Details: Sit->Supine: SBA to complete transition to supine. cues for initiation and technique into bed Transfer Assessment: Sit to Stand Transfer Clarke Level: Sit->Stand: contact guard assist Physical Assist: Sit->Stand: 1 person + 1 person to manage equipment Assistive Device: Sit->Stand: 2 wheeled walker, gait belt Skilled Rationale: Positioning, Sequencing, Hand placement, Verbal cues, Technique of activity, Initiation and execution of task, Cues for increased safety Skilled Intervention/Details: Sit->Stand: CGA to stand from EOB with cues for hand placement for push off Stand to Sit Transfer Clarke Level: Stand->Sit: contact guard assist Physical Assist: Stand->Sit: 1 person + 1 person to manage equipment Assistive Device: Stand->Sit: gait belt, 2 wheeled walker Skilled Rationale: Positioning, Sequencing, Hand placement, Verbal cues, Controlled descent for sitting, Technique of activity, Initiation and execution of task, Cues for increased safety Skilled Intervention/Details: Stand->Sit: CGA to chair then EOB, cues for hand placement and positioning to turn all the way around to chair prior to descent to sit Functional Mobility: Functional Mobility Clarke Level: Functional Mobility/Gait: contact guard assist Physical Assist: Functional Mobility/Gait: 1 person + 1 person to manage equipment Assistive Device: Functional Mobility/Gait: 2 wheeled walker, gait belt Functional Mobility Distance: Distance needed for common household mobility Functional Mobility Deficits: Activity tolerance, Balance, Follow safety/precautions, Slowed gait speed, Narrow base of support, Sequencing, Way finding, Problem solving, Pain Functional Mobility Skilled Rationale: Cues for cognitive deficit, Cues for increased safety, Proper pacing, Tactile cues, Technique of activity, Verbal cues, Visual scanning and environmental awareness, Walker management/safety Skilled Intervention/Details - Functional Mobility/Gait: CGA functional mobility household distances with cues for safety with visual scanning/environmental awareness and technique with 2ww Wheelchair Assessment Patient currently uses wheelchair?: No Outcome Score(s): CURRENT [facility] Daily Activity Inpatient Short Form Putting on/Taking Off Lower Body Clothin - A Little Assistance Bathin - A Little Assistance Toiletin - A Little Assistance Putting on/Taking Off Upper Body Clothin - A Little Assistance Groomin - A Little Assistance Eatin - No Assistance CURRENT [facility] Activity Raw Score: 19 CURRENT -[facility] Activity Functional Limitation/Modifier: 42.80% Currently Impaired in Daily Activity - CK Assessment & Plan: Patient was admitted for ICAgenr is a 48 y.o. male with a history of an unspecified psychiatric disorder, HTN, and polysubstance use who presents on 07/29/2023 from [facility] with jaw stiffness, weakness, and a fall. and seen for therapy evaluation related to decreased ability to complete ADL tasks and mobility with need for DC planning. Pt could benefit from continued skilled OT services to maximize functional Clarke with ADL tasks and ADL transfers/mobility in order to return to [facility]. Exam findings include impairments in: aerobic capacity, anthropometric characteristics, balance, cognitive impairments, endurance, joint integrity and mobility, muscle performance, motor function, pain, pain with movement, strength, transfers. These impairments contribute to occupational performance limitations including bathing, dressing, grooming, toileting, functional mobility, ADL transfers, community integration, home management tasks. The following factors impact the plan of care: see pertinent PMH Psychosocial Factors Possible barriers for performance: Past medical history of psychosocial impairments Patient will benefit from skilled occupational therapy to address these impairments, occupational performance limitations, and participation restrictions. Patient's rehab potential is: fair. Planned Therapy Interventions (OT Eval): ADL retraining, balance training, bed mobility training, functional activity tolerance, strengthening, transfer training, cognitive training Patient Instruction/Education this session: Learners: Patient Education provided: Activity outside of therapy, Balance training, Bed mobility, Compensatory strategies, Gait belt use, Positioning, Plan of care, Role of this discipline, Safety Teaching method: Verbal Education/Instruction, Demonstration Learner response: No evidence of learning Learning preferences: Auditory, Visual, Kinesthetic Learning considerations: Cognition, Psychosocial Stroke education: (N/A) Plan for next session: progress EOB LB ADLs and mobility to bathroom/toileting as able Acute OT Goals Plan of Care by Debbi Hu OT at 07/30/2023 9:17 AM Version 1 of 1 Problem: OT - ADLs Goal: Lower Body Dressing - Patient will complete lower body dressing tasks with standby assistance using adaptive equipment/compensatory strategies as needed for improved ability to complete self-care activities. Outcome: Ongoing Goal: Toileting - Patient will complete toileting task with supervision and adaptive equipment as needed for improved ability to safely complete self-care activities. Outcome: Ongoing Problem: OT - Transfers Goal: Transfers Toilet/ Bedside Commode - Patient will transfer to/from toilet/bedside commode with supervision for improved ability to safely complete ADLs. Outcome: Ongoing Problem: OT - Balance Goal: Balance - Standing - Patient will perform 5-7 minutes of functional task in standing with supervision and good balance to promote safety and improved balance required for self-care activities. Outcome: Ongoing Problem: OT - Cognition Goal: Safety - Patient will demonstrate fair safety awareness during ADL routine with 2 or less cues for accuracy. Outcome: Ongoing OT treatment consisted of the following to work and progress towards the above goal(s): OT Evaluation and Treatment Time OT Evaluation (Moderate) Time Entry: 15 Evaluating Therapist: Debbi Hu OTR/Eren, C/NDT #[id number] Additional Details: OT Co-Eval/Treatment Information Co-evaluation/co-treatment performed?: Yes, simultaneous billable skilled care was necessary due to medical complexity and functional deficits Other discipline: PT Rationale for need to co-eval/treat: cognitive issues, coordination issues, postural control Co-treatment goal focus: balance, mobility, transfer, endurance, coordination, self-care, cognition OT Evaluation Complexity Occupational Profile and Client History: Moderate - expanded history Assessment of Occupational Performance: Moderate (3-5 performance deficits) Clinical Decision/Performance Deficits: Moderate (detailed assessments w/several treatment options) Time In: 916 Time Out: 931 Total Visit Time: 15 minutes Total Treatment Time (skilled, billable minutes): 15 minutes Assisted by during session: Enal PT PPE used during patient interaction: facemask, gloves Patient location at end of session: bed with head of bed elevated Alarms on at end of session: Other (1:1 sitter) Needs in reach. Upon discontinuation of Acute Care Occupational Therapy Services or patient discharge from the hospital this note represents the current Occupational Therapy Discharge Summary. Acute Physical Therapy Evaluation Prior to Admission AMPAC score(s): PRIOR LEVEL AM-PAC Mobility Raw Score: 24 Current AM-PAC score(s): CURRENT AM-PAC Mobility Raw Score: 18 Based on the above AM-PAC score(s) and PT clinical judgment, patient is a good candidate for discharge to (per the care management notes, possible return to [facility].) Mobility equipment available at home: none used ADL equipment available at home: none Equipment needed for discharge: to be determined Current therapy frequency recommendation in acute: Therapy Frequency: 3 times a week Activity Recommendations for outside of rehab session: Chair for all meals and during the day This pt would benefit from being up and in a chair during the day, especially for meals and ADLs, with nursing staff supervision. Prolonged bed rest would be detrimental to this pt during this hospital admission. 1:[address] Precautions and Weightbearing Status: Existing Precautions/Restrictions: fall No critical lines at this time Patient Safety Communication Prior to Visit: Nursing, Rehab team Subjective: My legs still feel travis weak and tingly I need a shot of pain meds Pain: General Pain Documentation (Adult, OB, Peds) Presence of Pain: complains of pain/discomfort Pain Location: leg, left, leg, right Home Setting Residence: Apartment Lives With: alone First floor setup: bedroom, tub shower Number of stairs to enter home: 2 Number of stairs in home: 0 Stair Railings at Home: entry - with rail Mobility Equipment Available: none used ADL Equipment Available: none Home Environment Details: information obtained via pt whom is questionable historian Previous Level of Function Prior level ADL Overview: Independent with all ADLs Dominant Hand: Right Bed Mobility/Transfers: independent Ambulation Skills: independent Assistive Device: none used Level of Ambulation: household Prior Level of Function Details: per the pt, no mobility issues at baseline Objective/Observation: Vitals/Vitals Responses to Treatment: No vitals taken, no adverse response noted during PT session Cognition Overall Cognitive Status: Impaired Arousal/Alertness: Delayed responses to stimuli Orientation Level: Oriented to person Following Commands: Follows one step commands with increased time, Follows one step commands with repetition Safety Judgment: Decreased awareness of need for assistance, Decreased awareness of need for safety Awareness of Errors: Assistance required to identify errors made, Assistance required to correct errors made Deficits: Decreased awareness of deficits Problem Solving: Assistance required to identify errors made, Assistance required to generate solutions Extremity Assessments: RLE Assessment RLE Assessment: AROM WFL (MMT grossly 3/5 R LE) LLE Assessment LLE Assessment: AROM WFL (MMT grossly 3/5 L LE) Sensation Overall Sensation: Impaired (+Numbness and tingling) Light Touch: Diminished Mobility Assessment: Supine to Sit Mobility Clarke Level: Supine->Sit: stand-by assist Bed Features/Set-up: Supine->Sit: Head of bed elevated, Use of bed rail Skilled Rationale: Verbal cues, Cues for increased safety Sit to Supine Mobility Clarke Level: Sit->Supine: stand-by assist Bed Features/Set-up: Sit->Supine: Flat Skilled Rationale: Verbal cues, Cues for increased safety Balance: Sitting Balance Static Sitting-Level of Assistance: Supervision Dynamic Sitting-Level of Assistance: Supervision Standing Balance Static Standing-Level of Assistance: Contact guard Dynamic Standing-Level of Assistance: Contact guard Standing-Balance Support: Gait belt, 2 wheeled walker Transfer Assessment: Sit to Stand Transfer Clarke Level: Sit->Stand: contact guard assist Assistive Device: Sit->Stand: gait belt, 2 wheeled walker Skilled Rationale: Verbal cues, Hand placement, Technique of activity, Initiation and execution of task, Cues for increased safety Stand to Sit Transfer Clarke Level: Stand->Sit: minimum assist (75% patient effort) Assistive Device: Stand->Sit: gait belt, 2 wheeled walker Skilled Rationale: Sequencing, Hand placement, Verbal cues, Technique of activity, Initiation and execution of task, Cues for increased safety Gait/Functional Mobility: Gait Assessment Clarke Level: Gait: contact guard assist Physical Assist: Gait: 2 person assist Assistive Device: Gait: gait belt, 2 wheeled walker Ambulation Distance (Feet): 100 Gait Deviations Identified: decreased jackie, flexed posture Gait Skilled Rationale: verbal, safety to avoid obstacles This pt was seen for skilled gait training to educate and to improve on consistency, technique and safety with use of the assistive device. Stairs: Stairs Assessment Clarke Level: Stair Negotiation: not tested Outcome Score(s): CURRENT [facility] Basic Mobility Inpatient Short Form Turning over in bed: 4 - No Assistance Moving from lying on back to sittin - A Little Assistance Moving to and from bed to chair: 3 - A Little Assistance Sitting/standing from chair: 3 - A Little Assistance Walk in hospital room: 3 - A Little Assistance Climbing 3-5 steps with a railin - A Lot of Assistance CURRENT [facility] Mobility Raw Score: 18 CURRENT [facility] Mobility Functional Limitation: 46.58% Impaired in Basic Mobility Interventions: Assessment & Plan: Patient was admitted for fall at facility and seen for therapy evaluation related to decreased safe mobility. Past Medical History: Diagnosis Date Hypertension Tobacco use disorder Past Surgical History: Procedure Laterality Date KNEE REPLACEMENT Bilateral Exam findings include impairments in: Transfers, Gait/Locomotion, Strength, Aerobic capacity/endurance. These impairments contribute to functional limitations including Ambulation/locomotion pain, Decreased ambulation distance/endurance, Difficulty ambulating on uneven/dynamic surfaces, Decreased functional mobility. This pt was able to demonstate gait with the WW but did need cues to obstacle negoiation. He also had a near fall while turning around to sit in the chair. He was impulsive and not turned fully around to sit. He will benefit from PT to work on mobility safety and general strengthening. Current clinical presentation is Unstable - unstable and unpredictable characteristics - safety risk (High). Patient history factors impacting Plan Of Care include cognition, falls, acute weakness, PMHx. Patient will benefit from skilled physical therapy to address these impairments, functional limitations, and participation restrictions and has good rehab potential to achieve therapy goals. Planned Therapy Interventions: endurance, functional activity tolerance, gait training Patient Instruction/Education this session: Learners: Patient Education provided: Activity outside of therapy, Gait belt use, Gait training safety, Role of this discipline Teaching method: Verbal Education/Instruction Learner response: States/Identifies/Teaches back Learning preferences: Auditory Learning considerations: Cognition, Psychosocial Plan for next session: Gait and transfer safety Acute PT Goals Plan of Care by Jovita Knight PT at 07/30/2023 9:16 AM Version 2 of 2 Problem: PT - General Goals Goal: Stand/Squat Pivot Transfers - Patient will perform stand pivot transfer to/from bed/chair/commode with supervision and without an assistive device in order to improve functional mobility and safety. 07/30/2023 1201 by Jovita Knight PT Outcome: Ongoing Goal: Ambulation - Patient will ambulate 250 feet with supervision and without an assistive device to improve ability to safely navigate home and community. 07/30/2023 1201 by Jovita Knight PT Outcome: Ongoing Goal: Stairs - Patient will ascend/descend 5 stairs with supervision, without an assistive device, and single railing(s) to improve ability to safely navigate home and community. 07/30/2023 1201 by Jovita Knight PT Outcome: Ongoing Plan of Care by Jovita Knight PT at 07/30/2023 9:16 AM Version 1 of 2 PT treatment consisted of the following to progress towards the above goal(s): PT Evaluation and Treatment Time PT Evaluation (Moderate) Time Entry: 15 Evaluating Therapist: Jovita Knight PT Additional Details: PT Co-Eval/Treatment Information Co-evaluation/co-treatment performed?: Yes, combination of simultaneous billable and individual billable skilled care was necessary due to medical complexity and functional deficits Other discipline: OT Rationale for need to co-eval/treat: cognitive issues Co-treatment goal focus: mobility Evaluation Complexity Components History: High (3 personal factors and/or comorbidities) Body Systems Review: Moderate (Addressing a total of 3 or more elements) Clinical Presentation: Unstable - unstable and unpredictable characteristics - safety risk (High) Clinical Decision Making: Moderate Time In: 915 Time Out: 930 Total Visit Time: 15 minutes Total Treatment Time (skilled, billable minutes): 15 minutes Assisted by during session: OT PPE used during patient interaction: facemask, gloves Patient location at end of session: bed with head of bed elevated Alarms on at end of session: none altered Needs in reach. Upon discontinuation of Acute Care Physical Therapy Services or patient discharge from the hospital this note represents the current Physical Therapy Discharge Summary. Internal Medicine Daily Progress Note Patient: Fransisco Cantor, 1975, [id number] Physician: Isaías Chen MD, PGY 1, Gen Med A service Subjective/Interval History: Seen this morning while eating breakfast. Stated he was having difficulty eating due to not being able to open his mouth fully. Also complaining of jaw pain that is exacerbated by trying to eat. Asking for additional pain medications. Objective: Vitals: 07/30/23719 BP: 142/85 Pulse: 89 Resp: 16 Temp: 97.4 F (36.3 C) SpO2: 96% O2 Device: room air (07/30/23719) Gen: NAD, well-appearing, sitting comfortably in bed HENT: EOM grossly intact, MMM, able to open mouth about 2 inches Cardio: RRR, normal S1/S2, no murmur Resp: CTA b/l, no increased WOB GI: soft, NT, ND MSK: no joint swelling or erythema Ext: warm and well-perfused, no LE edema Neuro: alert and oriented, moving all four extremities Data Review: WBC/Hgb/Hct/Plts: 6.14/13.0/39.3/210 (07/29 418) Na/K+/Phos/Mg/Ca: 137/3.9/4.1/1.8/9.4 (07/28 1437-07/29 418) Bun/Creat/Cl/CO2/Glucose: 12/0.70/106/23/103 (07/29 418) CT SPINE CERVICAL WITHOUT CONTRAST Final Result IMPRESSION: No fracture or traumatic malalignment in the cervical spine. I personally viewed and interpreted these images and I have reviewed and approved this report. HEAD WITHOUT CONTRAST Final Result IMPRESSION: No acute intracranial findings. I personally viewed and interpreted these images and I have reviewed and approved this report. CHEST 1 VIEW PORTABLE Final Result IMPRESSION: No acute cardiopulmonary disease Assessment/Plan: Fransisco Cantor is a 48 y.o. male with a history of an unspecified psychiatric disorder, HTN, and polysubstance use who presents on 07/29/2023 from [facility] with jaw stiffness, weakness, and a fall. Jaw Stiffness: Favor dystonia vs catatonia with addition of new anti-psychotics. It is improving after ativan and fluids. - s/p ativan in the ED - s/p benadryl - Start benztropine BID - PRN flexeril , ibuprofen [] Psych consulted, appreciate recs Starvation Ketosis: Due to being unable to open mouth. UA with ketones - Regular diet with ensures - s/p IVF Fall/Weakness: Patient has been in a wheel chair for the past 3-4 days. Patient attributing to not eating. Currently no back pain. 5-/5 BLUE strength. Intact sensation. Unclear etiology. - CK WNL - CT Head and Neck negative for acute fracture [] PT/OT consult - May require neurology consult if not improving Unspecified psychiatry disorder: Patient reports a history of bipolar 1 and schizophrenia. He thinks he is being evaluated for malu's. He has no family history of malu's. Denies SI/HI/Hallucinations - continue effexor - holding risperidone 3mg daily and Ingrezza 40 mg daily in the setting of jaw issues as above [] Psych consulted; appreciate recs Neck Pain: - Tylenol PRN - Ibuprofen PRN Insomnia: - hydroxyzine PRN DVT PPX: lovenox Code Status: Full Code Disposition: pending improvement of symptoms and psych evaluation Discussed with team and attending, Daly Ny MD on rounds. Signed, Isaías Chen MD Internal Medicine Prelim PGY1 Associated attestation - Daly Ny MD - 07/31/2023 11:02 PM EDT Please see my addendum to H& P dated 07/29/2023 Department of Pharmacy Admission Medication Reconciliation Note Patient: Fransisco Cantor Room/Bed: [facility] I have reviewed the patient's home medication list with the following sources Outside nursing facility (Name [facility] ). The home medication list status is: complete. All changes to the home medication list have been updated in [facility]. 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 Alum & Mag Hydroxide-Simeth (MAALOX PLUS PO) Sig: Take 30 mL by mouth every 4 hours as needed (indigestion). B Complex capsule Sig: Take 1 capsule by mouth daily. Lisinopril 20 MG tablet Sig: Take 1 tablet by mouth daily. Ondansetron 4 MG Tab Dispersible tablet Sig: Take 1 tablet by mouth every 4 hours as needed for Nausea / Vomiting. Valbenazine Tosylate 40 MG capsule Sig: Take 40 mg by mouth daily. Venlafaxine 75 MG Cap SR 24HR capsule XR Sig: Take 2 capsules by mouth daily. amLODIPine 5 MG tablet Sig: Take 1 tablet by mouth daily. baclofen 10 MG tablet Sig: Take 1 tablet by mouth 3 times daily as needed (pain). cloNIDine 0.1 MG tablet Sig: Take 1 tablet by mouth every 6 hours as needed for Blood Pressure (High). cyanocobalamin 1000 MCG tablet Sig: Take 1 tablet by mouth daily. donepezil 5 MG tablet Sig: Take 1 tablet by mouth At bedtime. hydrOXYzine hcl 50 MG tablet Sig: Take 1 tablet by mouth every 6 hours as needed for Anxiety. risperiDONE 3 MG tablet Sig: Take 1 tablet by mouth 2 times daily. Facility-Administered Medications: None Added to Home Medications: Tylenol Atarax Clonidine Maalox Cyanocobalamin Baclofen Zofran ODT Effexor XR Deleted from Home Medications: Effexor (regular-release) Other Comments: The patient's allergies were not reviewed at this time. See ED note written 07/29/[address] Rivas for scanned medication list Please feel free to contact me with any further questions. Name: Julianna Samuel RPH Phone #: [phone] Date/Time: 07/30/2023 7:37 AM Time Spent: 10 minutes documented in this encounter [facility] 08-01-2023 Hospital Discharge instructions Ayse López MD - 08/01/2023 12:09 PM EDT You were admitted to the hospital for: jaw stiffness, weakness, and a fall. Treatment in the hospital: We consulted psychiatry who thought these symptoms were due to catatonia. They recommended stopping Donepezil, Risperidone, and Valbenazine Tosylate. You were started on Ativan 2 mg TID and later Quetiapine 50 mg at bedtime. We also continued Venlafaxine at a lower dose of 75 mg daily. 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 They did not recommend any further testing. Treatment at [facility]: Continue further management of catatonia and patient's unspecified psychiatric disorder. This should be a voluntary admission. Call 911 or go to your local emergency room if: - You have chest pain. - You feel like you can t catch your breath. - You have loss of consciousness. - You feel confused or very sleepy. - You have new numbness or weakness on one side of your body. - You faint or pass out without even knowing it s about to happen. - For any other life threatening emergencies. - You have a concern and cannot reach your doctor. documented in this encounter [facility] 08-01-2023 Nurse Note Report given to LISA Dunham at [facility] and paperwork faxed. Nurse aware of pickup time of 1230. [facility] 08-01-2023 Nurse Note Pt reporting increased anxiety requesting scheduled 1400 dose of ativan to be given early. Dr Ny notified and okay with dose being given early. [facility] 08-01-2023 Plan of care note Problem: OT - ADLs Goal: Lower Body Dressing - Patient will complete lower body dressing tasks with standby assistance using adaptive equipment/compensatory strategies as needed for improved ability to complete self-care activities. Outcome: Met Goal: Toileting - Patient will complete toileting task with supervision and adaptive equipment as needed for improved ability to safely complete self-care activities. Outcome: Met Problem: OT - Transfers Goal: Transfers Toilet/ Bedside Commode - Patient will transfer to/from toilet/bedside commode with supervision for improved ability to safely complete ADLs. Outcome: Met Problem: OT - Balance Goal: Balance - Standing - Patient will perform 5-7 minutes of functional task in standing with supervision and good balance to promote safety and improved balance required for self-care activities. Outcome: Met Problem: OT - Cognition Goal: Safety - Patient will demonstrate fair safety awareness during ADL routine with 2 or less cues for accuracy. Outcome: Met [facility] 07-31-2023 Plan of care note Problem: Adult Inpatient Plan of Care Goal: Plan of Care Review 07/31/20232157 by Kayleigh Michaud RN Outcome: Progressing 07/31/20232157 by Kayleigh Michaud RN Outcome: Progressing Goal: Patient-Specific Goal (Individualized) 07/31/20232157 by Kayleigh Michaud RN Outcome: Progressing 07/31/20232157 by Kayleigh Michaud RN Outcome: Progressing Goal: Absence of Hospital-Acquired Illness or Injury 07/31/20232157 by Kayleigh Michaud RN Outcome: Progressing 07/31/2023 215 by Kayleigh Michaud RN Outcome: Progressing Goal: Optimal Comfort and Wellbeing 07/31/20232157 by Kayleigh Michaud RN Outcome: Progressing 07/31/2023 215 by Kayleigh Michaud RN Outcome: Progressing Goal: Readiness for Transition of Care 07/31/20232157 by Kayleigh Michaud RN Outcome: Progressing 07/31/20232157 by Kayleigh Michaud RN Outcome: Progressing Problem: Pain Acute Goal: Optimal Pain Control and Function 07/31/20232157 by Kayleigh Michaud RN Outcome: Progressing 07/31/20232157 by Kayleigh Michaud RN Outcome: Progressing [facility] 07-31-2023 Nurse Note Patient's mother called for updates on son's condition, she says she would also call tomorrow morning for updates from physician as well. [facility] 07-31-2023 Nurse Note Assumed care of patient from Joanie GONZALEZ, assessment completed per policy, no noted changes from previous assessment unless otherwise documented. Pt. alert and oriented, vitals stable. Pt. oriented to call light and alarms. All questions were answered. [facility] 07-31-2023 Plan of care note Reassessment completed per policy, no noted changes from previous assessment unless otherwise documented. Pt. alert and oriented, vitals stable. Pt. oriented to call light and alarms. All questions were answered. Problem: Adult Inpatient Plan of Care Goal: Plan of Care Review Outcome: Progressing Goal: Patient-Specific Goal (Individualized) Outcome: Progressing Goal: Absence of Hospital-Acquired Illness or Injury Outcome: Progressing Goal: Optimal Comfort and Wellbeing Outcome: Progressing Goal: Readiness for Transition of Care Outcome: Progressing Problem: OT - Balance Goal: Balance - Standing - Patient will perform 5-7 minutes of functional task in standing with supervision and good balance to promote safety and improved balance required for self-care activities. Outcome: Progressing Problem: Pain Acute Goal: Optimal Pain Control and Function Outcome: Progressing [facility] 07-31-2023 Plan of care note Pt has met all stated PT goals and will be discharged from acute PT at this time. Pt to continue to mobilize with nursing staff until discharge. Please re-consult if there is a change in functional mobility. Thank you. Problem: PT - General Goals Goal: Stand/Squat Pivot Transfers - Patient will perform stand pivot transfer to/from bed/chair/commode with supervision and without an assistive device in order to improve functional mobility and safety. Outcome: Met Goal: Ambulation - Patient will ambulate 250 feet with supervision and without an assistive device to improve ability to safely navigate home and community. Outcome: Met Goal: Stairs - Patient will ascend/descend 5 stairs with supervision, without an assistive device, and single railing(s) to improve ability to safely navigate home and community. Outcome: Met [facility] 07-31-2023 Consult note Formatting of th is note is different from the original. PSYCHIATRY CONSULT FOLLOW-UP NOTE 07/31/2023 Fransisco Cantor : 1975 SUBJECTIVE Today, pt sx of catatonia much improved. Ongoing psychomotor slowing noted. Less speech latency. Increased spontaneous movement. Less paucity of thought and speech. PT seen with hands in strange posture prior to starting interview. PT is able to advocate for needs (eg. Taking a shower). Denies SI, HI or AVH. Denies recent depression. Denies recent substance use. Does report feeling anxious and restless. Is open to starting Seroquel (has benefited in the past). Fransisco Cantor's review of systems today is positive for problems with restlessness. All other systems were reviewed and are negative. OBJECTIVE Appearance: disheveled, psychomotor slowing Attention: adequate Orientation: person and place Interview Behavior: cooperative Attire: hospital gown Grooming: poor Eye Contact: fair Mood: anxious Affect: blunted Motor Activity: Some strange posturing of hands noted. Bradykinetic. Speech: Speech latency. 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 Vital Signs: Blood pressure 105/59, pulse 63, temperature 98.5 F (36.9 C), temperature source Oral, resp. rate 18, height 1.956 m (6' 5), weight 107.3 kg (236 lb 8 oz), SpO2 93%. Scheduled Medications: amLODIPine (NORVASC) tablet 5 mg, 5 mg, Daily Diclofenac sodium (VOLTAREN) 1 % gel 2 g, 2 g, 4x daily Enoxaparin Sodium (LOVENOX) injection 40 mg, 40 mg, Daily [Held by provider] Lisinopril (PRINIVIL) tablet 20 mg, 20 mg, Daily LORazepam (ATIVAN) tablet 1 mg, 1 mg, Q8H Melatonin tablet 6 mg, 6 mg, QHS Multivitamin w/ minerals (THERAPEUTIC-M) tablet 1 tablet, 1 tablet, Daily Nicotine (NICODERM CQ) 21 MG/24HR patch 1 patch, 1 patch, Q24H And VERIFY LINKED PATCH PLACEMENT, , Q12H Venlafaxine (EFFEXOR-XR) capsule XR 75 mg, 75 mg, Every BKF PRN Medications: Acetaminophen, 650 mg, Q6H PRN alum/mag hydrox.-simethicone, 30 mL, Q6H PRN Benztropine, 1 mg, Q12H PRN Cyclobenzaprine, 5 mg, TID PRN guaiFENesin, 400 mg, Q6H PRN hydrOXYzine hcl, 50 mg, Q6H PRN Ibuprofen, 600 mg, Q6H PRN nicotine, 4 mg, Q2H PRN Nicotine, 4 mg, Q2H PRN Ondansetron 4mg/2ml, 4 mg, Q6H PRN Or Ondansetron, 4 mg, Q6H PRN Sodium chloride 0.9%, 250 mL, PRN Labs/Diagostic Studies: Recent Results (from the past 24 hour(s)) HEPATITIS BATTERY, CHRONIC Collection Time: 07/30/23 6:34 PM Result Value Ref Range Hepatitis B Surface Ag Negative Negative Hep B Surface Ab Positive (A) Negative Hep B Core Ab,Total (IgG+IgM) Positive (A) Negative Hepatitis C Antibody Positive - See Hep C PCR for confirmatory results. (A) Negative IMPRESSION Pt catatonic findings are improving. Appreciate neurology recs. Would not rule out other etiologies of somewhat rapid decline in conditioning/weakness/cognition. Catatonia Bipolar 1 mre manic severe with psychotic features MDD Per history Opiate use disorder (in remission) previusly on suboxone Cannabis Use Disorder per history Methemphetamine use disorder per history Hx of using Bath Salts Recent fall, injury to jaw/knee Malnutrition, Ketoacidosis RECOMMENDATIONS Safety -No SI or HI, but would keep on medical hold and not allow to leave AMA. If concern for elopement, could consider 1:1 sitte.r Diagnostic Work-Up (Labs/Imaging): Please obtain further records and communication from [facility] team regarding their justification for [place] diagnosis (eg. Do they have genetic testing, MRI showing caudate atrophy etc) and reason for initiating valbenazine, namenda/aricept etc. Would recommend workup for possible causes of encephalopathy Appreciate neurology recs. Given recent weakness and sx, and to weigh in on possible etiology for sx (etiology is not clear - suggest CSF analysis; no family hs Columbia's, could check viral, prion). Medications: Plan is to reduce medication burden. Increase Ativan to 2mg TID, monitor VS closely Stopped Donepezil Start Seroquel 50mg at bedtime Continue Effexor 75mg po am, do not increase dose. Avoid Flexeril with Effexor ; TCA with SNRI - risk of SE. Can use prn benztropine or diphenhydramine if concerned for acute dystonic reaction. Jaw stiffness per patient only started after acute injury/fall Continue to treat pain Ensure adequate hydration, monitor CK Non-Pharmacologic: Delirium management 1) Patient is exhibiting signs of delirium including periods of decreased awareness of the environment and impaired attention. The best treatment for delirium is to treat the underlying medical problems. 2) Non-pharmacologic evidence-based treatment of delirium includes repeated reorientation, promotion of good sleep hygiene, room with a window, early mobilization, correction of electrolyte abnormalities, removal of unnecessary attachments (adams catheter, peripheral IV's, NG tubes or other sources of infection), maximizing nutrition, using sensory aids (glasses, hearing aids), familiar faces (family, primary nurse), and minimizing unnecessary noise and stimuli. 3) Regarding pharmacology, avoid anticholinergic drugs and benzodiazepines to the extent possible. Opiates can cause and worsen delirium, but untreated pain can as well. Low dose antipsychotics can help. Please bear in mind that antipsychotics can lower seizure threshold and prolong QTc. Disposition/Consultations/Referral s/Follow-Up: Do not dischage prior to talking with psychiatry. Would recommend keeping patient on medical hold. Will defer to primary team/patient/family regarding discharge back to [facility] vs. Different facility. Thank you for this consult and being able to participate in this patient's care. We will continue to follow. This patient was seen and staffed with Dr. Gonzales. Please page [phone] with any questions or concerns from [phone] Sunday-Sunday. For urgent matters outside of these hours, please page [phone] for the founder president and ceo bus info consultant. Margareth Gold M.D. Ph.D. PGY-4 Psychiatry Attending's addendum: I assessed this patient Fransisco Cantor independently, face to face assessment was performed on 07/31/2023 and I agree with resident's Asif history, exam, assessment and clinical decision making. Ongoing psychomotor slowing, however less stiffness, less prominent posturing. Able to ambulate with assistance. Will increase dose of Ativan. I reviewed available laboratory results, notes and other electronic records. Hep C exposure, Hep B core Ab positive I obtained collateral info from primary team. Education and support were provided to the patient. Patient agreeable with care. Treatment planning and coordination of care with medical team. Wendy Gonzales MD [facility] Work Phone: 07-31-2023 Consult note Formatting of th is note is different from the original. PSYCHIATRY CONSULT FOLLOW-UP NOTE 07/31/2023 Fransisco Cantor : 1975 SUBJECTIVE Today, pt sx of catatonia much improved. Ongoing psychomotor slowing noted. Less speech latency. Increased spontaneous movement. Less paucity of thought and speech. PT seen with hands in strange posture prior to starting interview. PT is able to advocate for needs (eg. Taking a shower). Denies SI, HI or AVH. Denies recent depression. Denies recent substance use. Does report feeling anxious and restless. Is open to starting Seroquel (has benefited in the past). Fransisco Cantor's review of systems today is positive for problems with restlessness. All other systems were reviewed and are negative. OBJECTIVE Appearance: disheveled, psychomotor slowing Attention: adequate Orientation: person and place Interview Behavior: cooperative Attire: hospital gown Grooming: poor Eye Contact: fair Mood: anxious Affect: blunted Motor Activity: Some strange posturing of hands noted. Bradykinetic. Speech: Speech latency. Thought Process/Associations: normal although some paucity Suicidal Ideation: denied by patient Homicidal Ideation:denied by patient Delusions: none Hallucination: none Memory: poor recent and poor remote Insight/Judgment: poor insight, poor judgment Impulse Control: intact Fund of Knowledge: normal Language/Vocabulary: Fluent Cymraes Cognition: deficits in short term and retirement memory. Vital Signs: Blood pressure 105/59, pulse 63, temperature 98.5 F (36.9 C), temperature source Oral, resp. rate 18, height 1.956 m (6' 5), weight 107.3 kg (236 lb 8 oz), SpO2 93%. Scheduled Medications: amLODIPine (NORVASC) tablet 5 mg, 5 mg, Daily Diclofenac sodium (VOLTAREN) 1 % gel 2 g, 2 g, 4x daily Enoxaparin Sodium (LOVENOX) injection 40 mg, 40 mg, Daily [Held by provider] Lisinopril (PRINIVIL) tablet 20 mg, 20 mg, Daily LORazepam (ATIVAN) tablet 1 mg, 1 mg, Q8H Melatonin tablet 6 mg, 6 mg, QHS Multivitamin w/ minerals (THERAPEUTIC-M) tablet 1 tablet, 1 tablet, Daily Nicotine (NICODERM CQ) 21 MG/24HR patch 1 patch, 1 patch, Q24H And VERIFY LINKED PATCH PLACEMENT, , Q12H Venlafaxine (EFFEXOR-XR) capsule XR 75 mg, 75 mg, Every BKF PRN Medications: Acetaminophen, 650 mg, Q6H PRN alum/mag hydrox.-simethicone, 30 mL, Q6H PRN Benztropine, 1 mg, Q12H PRN Cyclobenzaprine, 5 mg, TID PRN guaiFENesin, 400 mg, Q6H PRN hydrOXYzine hcl, 50 mg, Q6H PRN Ibuprofen, 600 mg, Q6H PRN nicotine, 4 mg, Q2H PRN Nicotine, 4 mg, Q2H PRN Ondansetron 4mg/2ml, 4 mg, Q6H PRN Or Ondansetron, 4 mg, Q6H PRN Sodium chloride 0.9%, 250 mL, PRN Labs/Diagostic Studies: Recent Results (from the past 24 hour(s)) HEPATITIS BATTERY, CHRONIC Collection Time: 07/30/23 6:34 PM Result Value Ref Range Hepatitis B Surface Ag Negative Negative Hep B Surface Ab Positive (A) Negative Hep B Core Ab,Total (IgG+IgM) Positive (A) Negative Hepatitis C Antibody Positive - See Hep C PCR for confirmatory results. (A) Negative IMPRESSION Pt catatonic findings are improving. Appreciate neurology recs. Would not rule out other etiologies of somewhat rapid decline in conditioning/weakness/cognition. Catatonia Bipolar 1 mre manic severe with psychotic features MDD Per history Opiate use disorder (in remission) previusly on suboxone Cannabis Use Disorder per history Methemphetamine use disorder per history Hx of using Bath Salts Recent fall, injury to jaw/knee Malnutrition, Ketoacidosis RECOMMENDATIONS Safety -No SI or HI, but would keep on medical hold and not allow to leave AMA. If concern for elopement, could consider 1:1 sitte.r Diagnostic Work-Up (Labs/Imaging): Please obtain further records and communication from [facility] team regarding their justification for Huntingtons diagnosis (eg. Do they have genetic testing, MRI showing caudate atrophy etc) and reason for initiating valbenazine, namenda/aricept etc. Would recommend workup for possible causes of encephalopathy Appreciate neurology recs. Given recent weakness and sx, and to weigh in on possible etiology for sx (etiology is not clear - suggest CSF analysis; no family hs [place]'s, could check viral, prion). Medications: Plan is to reduce medication burden. Increase Ativan to 2mg TID, monitor VS closely Stopped Donepezil Start Seroquel 50mg at bedtime Continue Effexor 75mg po am, do not increase dose. Avoid Flexeril with Effexor ; TCA with SNRI - risk of SE. Can use prn benztropine or diphenhydramine if concerned for acute dystonic reaction. Jaw stiffness per patient only started after acute injury/fall Continue to treat pain Ensure adequate hydration, monitor CK Non-Pharmacologic: Delirium management 1) Patient is exhibiting signs of delirium including periods of decreased awareness of the environment and impaired attention. The best treatment for delirium is to treat the underlying medical problems. 2) Non-pharmacologic evidence-based treatment of delirium includes repeated reorientation, promotion of good sleep hygiene, room with a window, early mobilization, correction of electrolyte abnormalities, removal of unnecessary attachments (adams catheter, peripheral IV's, NG tubes or other sources of infection), maximizing nutrition, using sensory aids (glasses, hearing aids), familiar faces (family, primary nurse), and minimizing unnecessary noise and stimuli. 3) Regarding pharmacology, avoid anticholinergic drugs and benzodiazepines to the extent possible. Opiates can cause and worsen delirium, but untreated pain can as well. Low dose antipsychotics can help. Please bear in mind that antipsychotics can lower seizure threshold and prolong QTc. Disposition/Consultations/Referral s/Follow-Up: Do not dischage prior to talking with psychiatry. Would recommend keeping patient on medical hold. Will defer to primary team/patient/family regarding discharge back to [facility] vs. Different facility. Thank you for this consult and being able to participate in this patient's care. We will continue to follow. This patient was seen and staffed with Dr. Gonzales. Please page [phone] with any questions or concerns from [phone] Sunday-Sunday. For urgent matters outside of these hours, please page [phone] for the founder president and ceo bus info consultant. Margareth Gold M.D. Ph.D. PGY-4 Psychiatry Attending's addendum: I assessed this patient Fransisco Cantor independently, face to face assessment was performed on 07/31/2023 and I agree with resident's Asif history, exam, assessment and clinical decision making. Ongoing psychomotor slowing, however less stiffness, less prominent posturing. Able to ambulate with assistance. Will increase dose of Ativan. I reviewed available laboratory results, notes and other electronic records. Hep C exposure, Hep B core Ab positive I obtained collateral info from primary team. Education and support were provided to the patient. Patient agreeable with care. Treatment planning and coordination of care with medical team. Wendy Gonzales MD Associated Order(s): IP CONSULT TO PSYCHIATRY PSYCHIATRY CONSULTATION 07/30/2023 Fransisco Cantor : 1975 REQUESTING PROVIDER Margareth Harrell MD, MPH REASON FOR CONSULTATION Patient presenting from [facility] with concern for acute dystonia in setting of schizophrenia/bipolar and possibly malu's. requesting assistance with medication management HISTORY OF PRESENT ILLNESS Fransisco Cantor is a 48 y.o. M with a pmh of bipolar disorder, polysubstance abuse disorder (bath salts, cannabis, opiates), who was transferred from [facility] who noted that he had been experience recent weakness. Also of note, pt did fall out of wheelchair hitting jaw and knees causing pain. Some concern for possible acute dystonic reaction and was given benadryl. Appears to have been diagnosed or treated for Huntingtons (Valbenazine, Aricept/Namenda) at outside hospital (although no family history and pt sx likely more related to Catatonia). Of note, [facility] did not communicate with family who reports no hx of Huntingtons. Primary team did give patient Ativan 1mg due to concerns for catatonia, which appeared to improve symptoms. Upon interview, pt initially with strange posture of arm/hands. Pt with stiffness in upper and lower extremities. Pt with delayed responses to questioning and slow speech. PE revealed teeth bosch on tongue with some mild bleeding. Pt with pain in jaw and difficulty opening mouth. Pt reports continued pain in jaw and legs requesting pain meds. Pt with limited ability to answer questions. Does report some depression recently and some psychosis. Does agree with bipolar 1 illness but would not elaborate. Denies AVH today. Does agree that he has been moving more slowly recently. Confused why he was worked up for Huntingtons disease. Does not want to return to [facility]. Pt reprots no recent use of substances, and reports he only tried bath salts a few times, many years ago. Collateral: Mother (Cell-Phone): Geneva Dinh: Reports Fransisco has a hx of Bipolar 1 disorder and polysubstance use disorder: opiates (previusly on suboxone and multiple treatment facilities, no suspected recent use). Reports he used meth (distant use), bath salts (many years ago), Cannabis (unsure frequency). Reports a strong history of Bipolar disorder. First break was approx 10 years ago, became manic and psychotic at that time. Was stable for approx 10 year, until he started decompensating last Fall (2022). Reports that in Feb 2023, he started to become manic. Started becoming paranoid. Starting walking around the street at random times. Drove his care at 100+ mph which burned up his engine. Was picked up by police multiple times. of service dog may have been a trigger for him. Became more and more agitated. Got to the point that his son (which has lived with him for 10 years), could no longer live with him and moved out (of note, Tigre will be evicted before he gets out of the hospital). Things got worse and worse until Fransisco was taken to ED when police saw him agitated when walking. Was taken to ED and admitted to [facility] in June 2023 (for 7 days). Was went to drug rehab after but immediately left and was still psychotic. Pt then walked around police station, took off belt and started throwing his shoes. Was then taken to ED and transferred to [facility]. Family (even though GAMAL was signed) was not reached out to by psychiatry team. 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 Started getting slower and slower to respond. Stopped taking food and po liquids while at [facility]. Family advocated for transfer to medical hospital. They report no sx of diagnosis of Huntingtons runs on either side of family. They do not want him returning to [facility]. Fransisco Block And Case Maker's review of systems today is positive for problems with Catatonia, jaw pain, knee pain. All other systems were reviewed and are negative. PAST PSYCHIATRIC HISTORY Diagnoses: Bipolar 1, depression, anxiety, polysubstance use disorder. Past psychiatric medications: Unclear. Recently sent over from [facility] on Risperdal, Zyprexa, Aricept, Namenda, Valbenazine. Suicide attempts: None reported Hospitalizations: Multiple. First 10 years ago. Recently at [facility] and [facility]. Psychiatrist (current): None currently. Therapist/Counselor (current): None Psychotherapy: None The patient otherwise denies any previous psychiatric problems or diagnoses, inpatient or outpatient mental health care, suicide attempts.. use of psychotropic medications, or any self injurious behavior. PAST MEDICAL & SURGICAL HISTORY Past Medical History: Diagnosis Date Hypertension Tobacco use disorder Past Surgical History: Procedure Laterality Date KNEE REPLACEMENT Bilateral FAMILY PSYCHIATRIC HISTORY -Mothers Cousin (mentally ill) and in a hospital (possibly ID) -Mother/Sister: MIKO (mom takes citalipram and bupriopion) -No bipolar disorder or Huntingtons in family The patient otherwise denies any family history of mental illness or treatment, psychiatric hospitalizations, suicide attempts, or substance problems. SOCIAL HISTORY Current living situation: Used to live with son, son moved out when he became manic, now Fransisco is getting evicted (will be homeless). No family willing to take him at this time (Mother is in 70's). Fransisco was homeless temporarily in the past 12 years ago. Was on the streets for a few months, then moved in with Son. 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 Trauma/abuse/DV history: Denies history: 3 months in [place], [place] due to spurs Legal issues/history: Upcoming court date in [facility] (as a victim of breaking and entering). Perhaps a court date for being unruly on the street, unsure of court date. Access to guns: none (to mothers knowledge), has [facility] Cultural/rastafari/ethnic considerations: [employer] SUBSTANCE USE HISTORY -Meth, Opiates (previosly on suboxone, no recent use), hx of bath salt use (made him psychotic at one point, pt reports only using a few times). Multiple rehab in the past. According to the patient chart, he reports that he has been smoking cigarettes. He has never used smokeless tobacco. He reports that he does not currently use alcohol. He reports that he does not currently use drugs. ALLERGIES He is allergic to trazodone. MEDICATIONS Current Scheduled Medications: [Held by provider] amLODIPine (NORVASC) tablet 5 mg, 5 mg, Daily Diclofenac sodium (VOLTAREN) 1 % gel 2 g, 2 g, 4x daily donepezil (ARICEPT) tablet 5 mg, 5 mg, Daily Enoxaparin Sodium (LOVENOX) injection 40 mg, 40 mg, Daily [Held by provider] Lisinopril (PRINIVIL) tablet 20 mg, 20 mg, Daily Multivitamin w/ minerals (THERAPEUTIC-M) tablet 1 tablet, 1 tablet, Daily Nicotine (NICODERM CQ) 21 MG/24HR patch 1 patch, 1 patch, Q24H And VERIFY LINKED PATCH PLACEMENT, , Q12H Venlafaxine (EFFEXOR-XR) capsule XR 75 mg, 75 mg, Every BKF Current PRN Medications: Acetaminophen, 650 mg, Q6H PRN alum/mag hydrox.-simethicone, 30 mL, Q6H PRN guaiFENesin, 400 mg, Q6H PRN hydrOXYzine hcl, 50 mg, Q6H PRN Melatonin, 6 mg, QHS PRN Nicotine, 4 mg, Q2H PRN Ondansetron 4mg/2ml, 4 mg, Q6H PRN Or Ondansetron, 4 mg, Q6H PRN Sodium chloride 0.9%, 250 mL, PRN RESULTS/DATA REVIEW Labs and imaging have been reviewed. Recent Results (from the past 24 hour(s)) [facility] 7 - ED Collection Time: 07/29/23 2:37 PM Result Value Ref Range Sodium 136 135 - 145 mmol/L Potassium 5.2 (H) 3.5 - 5.0 mmol/L Chloride 103 98 - 108 mmol/L CO2 21 21 - 31 mmol/L Glucose 91 70 - 99 mg/dL BUN 13 7 - 25 mg/dL Creatinine 0.74 0.70 - 1.30 mg/dL Bun/Crea Ratio 18 Osmolality (Calculated) 287 278 - 305 mOsm/kg Anion Gap 17 7 - 17 mmol/L eGFR, CKD-EPI, Male >90 >=60 mL/min/1.73m2 HEPATIC FUNCTION PANEL Collection Time: 07/29/23 2:37 PM Result Value Ref Range Albumin 4.4 3.5 - 5.0 g/dL Bilirubin Direct 0.1 <0.3 mg/dL Bilirubin Total 0.6 <1.5 mg/dL ALP 63 32 - 126 U/L ALT 14 10 - 52 U/L AST 31 10 - 39 U/L Total Protein 7.0 6.4 - 8.3 g/dL HIGH SENSITIVITY TROPONIN I - SINGLE ORDER Collection Time: 07/29/23 2:37 PM Result Value Ref Range hs-Troponin I <3 <53 ng/L MAGNESIUM Collection Time: 07/29/23 2:37 PM Result Value Ref Range Magnesium 2.0 1.6 - 2.6 mg/dL CALCIUM Collection Time: 07/29/23 2:37 PM Result Value Ref Range Calcium 9.4 8.6 - 10.5 mg/dL PHOSPHATE, INORGANIC Collection Time: 07/29/23 2:37 PM Result Value Ref Range Phosphorous 4.1 2.2 - 4.6 mg/dL CBC AND ELECTRONIC DIFF Collection Time: 07/29/23 2:37 PM Result Value Ref Range WBC Count 6.39 3.73 - 10.10 K/uL RBC Count 5.20 4.38 - 5.83 M/uL Hemoglobin 15.5 13.4 - 16.8 g/dL Hematocrit 44.9 39.6 - 48.8 % Mean Cell Volume 86.3 79.0 - 94.5 fL Mean Cell Hgb 29.8 26.1 - 33.3 pg Mean Cell Hgb Conc 34.5 31.9 - 36.5 g/dL RBC Distribution 12.2 10.9 - 14.3 % Platelet Count 219 146 - 337 K/uL Mean Platelet Volume 9.5 8.7 - 12.3 fL DIFF STATUS Electronic Differential Segs + Bands Auto 67.7 % Immature Grans % 0.3 % Lymphocyte % Auto 24.6 % Monocyte % Auto 7.4 % Eosinophil % Auto 0.0 % Basophil % Auto 0.0 % Nucleated RBC 0.0 <=0.2 /100 WBC Segs + Bands,Absolute Auto 4.33 1.57 - 6.19 K/uL Immature Grans Absolute <0.04 <=0.07 K/uL Abs Lymph Auto 1.57 0.83 - 3.57 K/uL Abs Terry Auto 0.47 0.24 - 0.93 K/uL Abs Eos Auto <0.04 0.00 - 0.48 K/uL Abs Baso Auto <0.04 0.00 - 0.09 K/uL CK Collection Time: 07/29/23 2:37 PM Result Value Ref Range Creatine Kinase 123 30 - 220 U/L SARS-COV-2 RAPID Collection Time: 07/29/23 2:58 PM Specimen: Fluid/Swab Result Value Ref Range SARS-COV-2 NOT DETECTED NOT DETECTED INFLUENZA A/B RAPID MOLECULAR Collection Time: 07/29/23 2:58 PM Result Value Ref Range Influenza A, Molecular Not Detected Not Detected Influenza B, Molecular Not Detected Not Detected POC VENOUS BLOOD GAS Collection Time: 07/29/23 3:01 PM Result Value Ref Range Specimen Type Venous pH, Venous 7.45 (H) 7.32 - 7.43 pCO2, Venous 35 (L) 36 - 52 mm Hg pO2, Venous 79 mm Hg HCO3, Venous 24 22 - 29 mmol/L sO2 (O2 Saturation), Venous 97 (H) 70 - 80 % Base Excess 0.3 -3.0 - 3.0 mmol/L Glucose, Whole Blood 91 70 - 99 mg/dL Lactate, Whole Blood 1.2 0.5 - 1.6 mmol/L Sodium, Whole Blood 133 (L) 135 - 145 mmol/L Potassium, Whole Blood 4.0 3.5 - 5.0 mmol/L Ionized Calcium, Whole Blood 4.92 4.60 - 5.30 mg/dL Total Hemoglobin 15.6 13.4 - 16.8 g/dL Hematocrit (Calculated) 47.0 40.2 - 50.4 % Oxyhemoglobin 94 94 - 98 % Carboxyhemoglobin 2.2 (H) <=1.5 % Methemoglobin 0.7 <=1.5 % URINALYSIS REFLEX TO CULTURE PERFORMABLE Collection Time: 07/29/23 5:11 PM Result Value Ref Range Color Yellow Yellow Appearance Urine Clear Clear Glucose Urine Negative Negative Ketones Urine 40 mg/dL = Moderate (A) Negative Specific [place] Urine 1.028 1.001 - 1.035 Blood Urine Negative Negative pH Urine 5.5 5.0 - 7.0 Protein Urine Negative Negative Urobilinogen Urine 1.0 E.U./dL 0.2 E.U/dL, 1.0 E.U/dL Nitrites Urine Negative Negative Leukocyte Esterase Negative Negative RBC Urine 0-2 0 - 2 /HPF WBC Urine 0 - 5 0 - 5 /HPF Squamous/Epithelial Cells 0-2/hpf 0-2/hpf, 3-5/hpf = 1+ Bacteria ABSENT ABSENT CK Collection Time: 07/29/23 6:52 PM Result Value Ref Range Creatine Kinase 190 30 - 220 U/L URINE DRUG SCREEN 10 Collection Time: 07/29/23 8:46 PM Result Value Ref Range Amphetamine/Methamphetamine None Detected Cutoff: 500 ng/mL Barbiturates None Detected Cutoff: 200 ng/mL Benzodiazepines None Detected Cutoff: 200 ng/mL Buprenorphine None Detected Cutoff: 5 ng/mL Cannabinoids (Marijuana) None Detected Cutoff: 50 ng/mL Cocaine None Detected Cutoff: 150 ng/mL Fentanyl None Detected Cutoff: 1 ng/mL Methadone None Detected Cutoff: 300 ng/mL Opiates None Detected Cutoff: 300 ng/mL Oxycodone None Detected Cutoff: 100 ng/mL CBC,PLATELETS Collection Time: 07/30/23 4:19 AM Result Value Ref Range WBC Count 6.14 3.73 - 10.10 K/uL RBC Count 4.47 4.38 - 5.83 M/uL Hemoglobin 13.0 (L) 13.4 - 16.8 g/dL Hematocrit 39.3 (L) 39.6 - 48.8 % Mean Cell Volume 87.9 79.0 - 94.5 fL Mean Cell Hgb 29.1 26.1 - 33.3 pg Mean Cell Hgb Conc 33.1 31.9 - 36.5 g/dL RBC Distribution 12.5 10.9 - 14.3 % Platelet Count 210 146 - 337 K/uL Mean Platelet Volume 9.9 8.7 - 12.3 fL CHEM 7 (LYTES,BUN,CREA,GLUC) Collection Time: 07/30/23 4:19 AM Result Value Ref Range Sodium 137 135 - 145 mmol/L Potassium 3.9 3.5 - 5.0 mmol/L Chloride 106 98 - 108 mmol/L CO2 23 21 - 31 mmol/L Glucose 103 (H) 70 - 99 mg/dL BUN 12 7 - 25 mg/dL Creatinine 0.70 0.70 - 1.30 mg/dL Bun/Crea Ratio 17 Osmolality (Calculated) 287 278 - 305 mOsm/kg Anion Gap 12 7 - 17 mmol/L eGFR, CKD-EPI, Male >90 >=60 mL/min/1.73m2 MAGNESIUM Collection Time: 07/30/23 4:19 AM Result Value Ref Range Magnesium 1.8 1.6 - 2.6 mg/dL EKG: July 21 2023 Normal Sinus Rhythm Normal EKG Imaging/Studies: CT Head 07/22: FINDINGS: BRAIN/VENTRICLES: No acute intracranial hemorrhage or extraaxial fluid collection. Monreal-white differentiation is maintained. No evidence of mass, mass effect or midline shift. No evidence of hydrocephalus. CT HEAD WITHOUT CONTRAST, 07/29/2023 3:13 PM COMPARISON: No priors available for comparison. CLINICAL INDICATIONS: 48 years Male AMS, fall; RELEVANT CLINICAL HISTORY: TECHNIQUE: A series of transaxial computerized tomographic images are obtained from base of skull to vertex without intravenous contrast. Axial whole-head and thin section posterior fossa slices are provided. Reformats: Sagittal and coronal. FINDINGS: Monreal-white matter differentiation is preserved. No acute large territory infarction is seen. No acute intracranial hemorrhage is seen. No significant mass effect or midline shift. Ventricles are normal in size and configuration for patient age. Skull appears intact. Visualized orbits appear normal. Visualized paranasal sinuses are clear. IMPRESSION: No acute intracranial findings. I personally viewed and interpreted these images and I have reviewed and approved this report. AL STATUS EXAMINATION Appearance: disheveled and poor hygiene Attention: difficulties with concentration Orientation: person Interview Behavior: passive, withdrawn Attire: hospital gown Grooming: poor Eye Contact: poor Mood: depressed Affect: flat Motor Activity: Muscle rigidity, bilateral upper and lower extremities. Speech: slowed and latency, paucity Thought Process/Associations: paucity Suicidal Ideation: denied by patient Homicidal Ideation:denied by patient Delusions: unable to fully assess Hallucination: none Memory: poor remote, poor remote Insight/Judgment: poor insight and poor judgement Impulse Control: intact Fund of Knowledge: unable to assess Language/Vocabulary: Fluent Cymraes Cognition: deficits in executive function and working memory, although not fully assessed. Vital Signs: Blood pressure 142/85, pulse 89, temperature 97.4 F (36.3 C), resp. rate 16, height 1.956 m (6' 5), weight 107.3 kg (236 lb 8 oz), SpO2 96%. IMPRESSION Pt presentation more consistent with catatonia. Would hold antipsychotics and start Ativan 1mg TID. We will continue to follow. Would encourage primary team to reach out to [facility] regarding their concern for Huntingtons Disease. Catatonia Bipolar 1 severe MRE manic with psychotic features MDD Per history Opiate use disorder (in remission) previusly on suboxone Cannabis Use Disorder per history Methemphetamine use disorder per history Hx of using Bath Salts Recent fall, injury to jaw/knee Malnutrition, Ketoacidosis Past Medical History: Diagnosis Date Hypertension Tobacco use disorder RECOMMENDATIONS Safety -No SI or HI, but would keep on medical hold and not allow to leave AMA. If concern for elopement, could consider 1:1 sitte.r Diagnostic Work-Up (Labs/Imaging): Please obtain further records and communication from [facility] team regarding their justification for Huntingtons diagnosis (eg. Do they have genetic testing, MRI showing caudate atrophy etc) and reason for initiating valbenazine, namenda/aricept etc. Would recommend workup for possible causes of encephalopathy Would recommend neuriology consult given recent weakness and sx, and to weigh in on possible etiology for sx (etiology is not clear - suggest CSF analysis; no family hs Malu's, check viral, prion). Medications: Plan is to reduce medication burden. Start Ativan 1mg TID, monitor VS closely Stop Donepezil Would not restart Antipsychotics at this time (eg. Do not restart Risperdal) Continue Effexor 75mg po am, do not increase dose. Can use prn benztropine or diphenhydramine if concerned for acute dystonic reaction. Jaw stiffness per patient only started after acute injury/fall Continue to treat pain Ensure adequate hydration, monitor CK Non-Pharmacologic: Delirium management 1) Patient is exhibiting signs of delirium including periods of decreased awareness of the environment and impaired attention. The best treatment for delirium is to treat the underlying medical problems. 2) Non-pharmacologic evidence-based treatment of delirium includes repeated reorientation, promotion of good sleep hygiene, room with a window, early mobilization, correction of electrolyte abnormalities, removal of unnecessary attachments (adams catheter, peripheral IV's, NG tubes or other sources of infection), maximizing nutrition, using sensory aids (glasses, hearing aids), familiar faces (family, primary nurse), and minimizing unnecessary noise and stimuli. 3) Regarding pharmacology, avoid anticholinergic drugs and benzodiazepines to the extent possible. Opiates can cause and worsen delirium, but untreated pain can as well. Low dose antipsychotics can help. Please bear in mind that antipsychotics can lower seizure threshold and prolong QTc. Disposition/Consultations/Referral s/Follow-Up: Do not dischage prior to talking with psychiatry. Would recommend keeping patient on medical hold. Will defer to primary team/patient/family regarding discharge back to [facility] vs. Different facility. Thank you for this consult and being able to participate in this patient's care. We will continue to follow. This patient was seen and staffed with Dr. Gonzales. Please page [phone] with any questions or concerns from [phone] Sunday-Sunday. For urgent matters outside of these hours, please page [phone] for the founder president and ceo bus info consultant. Margareth Gold M.D. Ph.D. PGY-4 Psychiatry Attending's addendum: I assessed this patient Fransisco Cantor independently, face to face assessment was performed on 07/31/2023 and I agree with resident's Asif history, exam, assessment and clinical decision making. I reviewed available laboratory results, notes and other electronic records. Tox screen negative. Ketones in urine. Hgb 13 I reviewed available brain imaging and ECG - NSR with VR 99, [address] brain with no acuity. Cortical volume loss noted. I reviewed outside records through Care everywhere including ED notes 4..24 - Patient is a 39 year old male who presents to the emergency department with a chief complaint of altered mental status. He was transferred to the ED for medical clearance due to seizure like activity prior to arrival. Mr. Herrera reports that he has had symptoms for the past couple of days. Mr. Shepherd is not able to give a great history. Review of records note she has had some bizarre behavior and family has been concerned regarding seizure activity. Apparently at the [facility] facility he walked out to the nurses station and was observed to lower himself to the floor. He responded to a sternal rub and was able to get back up on his own. Prior to my seeing him, he again lowered himself to the floor. Security was able to get him back up into bed. He is not very cooperative with history or exam at this time. Transferred back to [facility]. No family hx Columbia's. Medical History Date Comments Osteoarthritis of both knees SCHEDULED FOR THE SURGERY ON 04/01/2018 Anxiety Current smoker H/O opioid abuse (HCC) ON SUBOXONE Home meds Medication Sig Dispensed Refills Start Date End Date Status hydrOXYzine (VISTARIL) 25 MG capsule Take 25 mg by mouth daily 0 Active gabapentin (NEURONTIN) 300 MG capsule Take 300 mg by mouth 2 times daily.. 0 Active QUEtiapine (SEROQUEL) 100 MG tablet Take 100 mg by mouth nightly 0 Active buprenorphine-naloxone (SUBOXONE) 4-[address] film [address] 1 Film under the tongue daily. 0 Active Addition of Effexor I reviewed [facility] report. BUPRENORPHINE-NALOX 8-2MG FILM 06/13/2023 06/04/2023 28 Each 3 14 TERESSA ROBERTS MD, [facility] BUPRENORPHINE-NALOX 8-2MG FILM 05/30/2023 04/18/2023 28 Each 3 14 TERESSA ROBERTS MD, CAM [facility] GABAPENTIN 300 MG CAPSULE 03/12/2023 01/08/2023 30 Each 2 30 B [facility] GABAPENTIN 300 MG CAPSULE 02/05/2023 01/08/2023 30 Each 2 30 B ADELE GARDNER I obtained collateral info from primary team. Education and support were provided to the patient. Flat affect, psychomotor slowing, posturing in UE. Stiffness in UE, LE. Patient expressed understanding of the above discussed. Treatment planning and coordination of care with medical team. Wendy Gonzales MD documented in this encounter [facility] 07-31-2023 Plan of care note Problem: Adult Inpatient Plan of Care Goal: Plan of Care Review Outcome: Progressing Goal: Patient-Specific Goal (Individualized) Outcome: Progressing Goal: Absence of Hospital-Acquired Illness or Injury Outcome: Progressing Goal: Optimal Comfort and Wellbeing Outcome: Progressing Goal: Readiness for Transition of Care Outcome: Progressing Problem: Pain Acute Goal: Optimal Pain Control and Function Outcome: Progressing Intervention: Prevent or Manage Pain Flowsheets (Taken 07/31/2023 0846) Medication Review/Management: medications reviewed [facility] 07-31-2023 Plan of care note Problem: PT - General Goals Goal: Stand/Squat Pivot Transfers - Patient will perform stand pivot transfer to/from bed/chair/commode with supervision and without an assistive device in order to improve functional mobility and safety. Outcome: Ongoing Goal: Ambulation - Patient will ambulate 250 feet with supervision and without an assistive device to improve ability to safely navigate home and community. Outcome: Ongoing Goal: Stairs - Patient will ascend/descend 5 stairs with supervision, without an assistive device, and single railing(s) to improve ability to safely navigate home and community. Outcome: Ongoing [facility] 07-31-2023 Nurse Note Second assessment completed, no significant changes noted otherwise charted. Patient has no unmet needs at the moment . Sitter at bedside.Plan of care ongoing. [facility] 07-30-2023 Plan of care note Problem: Adult Inpatient Plan of Care Goal: Plan of Care Review Outcome: Progressing Goal: Patient-Specific Goal (Individualized) Outcome: Progressing Goal: Absence of Hospital-Acquired Illness or Injury Outcome: Progressing Goal: Optimal Comfort and Wellbeing Outcome: Progressing Goal: Readiness for Transition of Care Outcome: Progressing Problem: Pain Acute Goal: Optimal Pain Control and Function Outcome: Progressing [facility] 07-30-2023 Plan of care note Spoke with the patients mother, Geneva Dinh, and gave an update about Fransisco. 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 She has tried to track down who gave him the diagnosis, but she has been unsuccessful. He was previously seen at a hospital in [place]. She states that he has never had an MRI or genetic testing. Isaías Chen MD PGY-1 [facility] 07-30-2023 Nurse Note Reassessment completed, no change from previous. Patient in bed resting with sitter at bedside. All of patient needs met at this time. Call light within reach, will continue to monitor. [facility] 07-30-2023 Nurse Note 07/30/23 1108 Patient Assessment Completed Patient Assessment Completed Initial Initial Discharge Planning Anticipated discharge disposition Acute Psych Facility Transportation Available for Discharge Medicaid Transportation Anticipated DME none Anticipated Services at Discharge Outpatient follow up Admission Assessment Reason for Admission falls Is the patient able to participate in the assessment? Yes Information source Patient;Review of Medical Record Demographics Verified and Updated Yes Has the patient been admitted to any hospital in the last 30 days? No Advanced Care Planning Has the patient completed Advance Directives? Not Completed Referral to Social Work for Advance Care Planning? Patient Declines Legal Next of Kin Does the patient have a Guardian? No Spouse No Adult Child(leatha), List All Adult Children No Parent(s) - List All Living Parents Yes Name and Contact information Geneva Cantor [phone] Referral to Social Work to Identify Legal Next of Kin? No Reviewed and Updated in Demographics? Yes Outpatient Providers Does patient have a primary care physician? No Is the patient agreeable to a referral or information on a primary care physician? Patient Agreeable Referral for primary care physician made to [facility] family/internal medicine Does the patient follow any specialists? No Reviewed and updated Care Team? Yes Environment/Caregivers Is the patient from a facility or skilled nursing? No Patient lives with [facility] House Does the patient have a first floor set-up with bed and bathroom? No Patient Caregiving Responsibilities Self Patient-identified caregiver/support network Family Who does the patient identify as a teachable caregiver(s)? Parent(s) Services Does the patient use a home health or hospice agency? No Current with dialysis? No Does the patient use any community programs or services? No Does patient use DME? none Does the patient use oxygen? No Anticipated Changes Related to Illness/Injury? No Initial ADLs Prior to Arrival What is the patient's baseline physical functioning prior to this acute illness? independent What is the patient's baseline cognitive functioning prior to this acute illness? independent Is the patient's baseline functioning changed by this acute illness? Yes Changes observed Physical Are there therapy or specialists consults? Yes Select consult type PT;OT Does the patient's home require any home modifications for discharge? No CM to recommend therapy or other consults? No Medication Management Does the patient have prescription insurance coverage? Yes Is the patient on Anticoagulation? No [employer] Does the patient or career representative express financial concerns? No Employed? No Coping/Stress Concerns about patient s coping and stress? No Chart reviewed; introduced myself and my role as the CCM; pt interviewed and ariana phipps confirmed; states he was living at [facility] prior to coming to the hospital and the plan is to dc back. He does not have or use any assistive devices. Has [employer]. Will continue to follow for any changes in dc needs. Transport per [employer]. FRANCIA is his mother, Geneva Dillard Block And Case Maker. Contact information correct in demographics. PCP: NONE RX coverage with his [employer] insurance. [facility] - [id number] [phone] [place] [address] Readmission Risk Score Risk of Readmission: 4.6 Category Reference: High:16-100 Mod-High:10-16 Mod-Low: 5-10 Low: 0-5 Mercy Maxwell RN BSN Care Management [phone] [facility] 07-30-2023 Plan of care note Problem: OT - ADLs Goal: Lower Body Dressing - Patient will complete lower body dressing tasks with standby assistance using adaptive equipment/compensatory strategies as needed for improved ability to complete self-care activities. Outcome: Ongoing Goal: Toileting - Patient will complete toileting task with supervision and adaptive equipment as needed for improved ability to safely complete self-care activities. Outcome: Ongoing Problem: OT - Transfers Goal: Transfers Toilet/ Bedside Commode - Patient will transfer to/from toilet/bedside commode with supervision for improved ability to safely complete ADLs. Outcome: Ongoing Problem: OT - Balance Goal: Balance - Standing - Patient will perform 5-7 minutes of functional task in standing with supervision and good balance to promote safety and improved balance required for self-care activities. Outcome: Ongoing Problem: OT - Cognition Goal: Safety - Patient will demonstrate fair safety awareness during ADL routine with 2 or less cues for accuracy. Outcome: Ongoing [facility] 07-30-2023 Plan of care note Problem: PT - General Goals Goal: Stand/Squat Pivot Transfers - Patient will perform stand pivot transfer to/from bed/chair/commode with supervision and without an assistive device in order to improve functional mobility and safety. 07/30/2023 1201 by Jovita Knight, PT Outcome: Ongoing Goal: Ambulation - Patient will ambulate 250 feet with supervision and without an assistive device to improve ability to safely navigate home and community. 07/30/2023 1201 by Jovita Knight, PT Outcome: Ongoing Goal: Stairs - Patient will ascend/descend 5 stairs with supervision, without an assistive device, and single railing(s) to improve ability to safely navigate home and community. 07/30/2023 1201 by Jovita Knight, PT Outcome: Ongoing [facility] 07-30-2023 Consult note Associated Order (s): IP CONSULT TO PSYCHIATRY PSYCHIATRY CONSULTATION 07/30/2023 Fransisco Cantor : 1975 REQUESTING PROVIDER Margareth Harrell MD, MPH REASON FOR CONSULTATION Patient presenting from [facility] with concern for acute dystonia in setting of schizophrenia/bipolar and possibly malu's. requesting assistance with medication management HISTORY OF PRESENT ILLNESS Fransisco Cantor is a 48 y.o. M with a pmh of bipolar disorder, polysubstance abuse disorder (bath salts, cannabis, opiates), who was transferred from [facility] who noted that he had been experience recent weakness. Also of note, pt did fall out of wheelchair hitting jaw and knees causing pain. Some concern for possible acute dystonic reaction and was given benadryl. Appears to have been diagnosed or treated for Huntingtons (Valbenazine, Aricept/Namenda) at outside hospital (although no family history and pt sx likely more related to Catatonia). Of note, [facility] did not communicate with family who reports no hx of Huntingtons. Primary team did give patient Ativan 1mg due to concerns for catatonia, which appeared to improve symptoms. Upon interview, pt initially with strange posture of arm/hands. Pt with stiffness in upper and lower extremities. Pt with delayed responses to questioning and slow speech. PE revealed teeth bosch on tongue with some mild bleeding. Pt with pain in jaw and difficulty opening mouth. Pt reports continued pain in jaw and legs requesting pain meds. Pt with limited ability to answer questions. Does report some depression recently and some psychosis. Does agree with bipolar 1 illness but would not elaborate. Denies AVH today. Does agree that he has been moving more slowly recently. Confused why he was worked up for Huntingtons disease. Does not want to return to [facility]. Pt reprots no recent use of substances, and reports he only tried bath salts a few times, many years ago. Collateral: Mother (Cell-Phone): Geneva Dinh: Reports Fransisco has a hx of Bipolar 1 disorder and polysubstance use disorder: opiates (previusly on suboxone and multiple treatment facilities, no suspected recent use). Reports he used meth (distant use), bath salts (many years ago), Cannabis (unsure frequency). Reports a strong history of Bipolar disorder. First break was approx 10 years ago, became manic and psychotic at that time. Was stable for approx 10 year, until he started decompensating last Fall (2022). Reports that in Feb 2023, he started to become manic. Started becoming paranoid. Starting walking around the street at random times. Drove his care at 100+ mph which burned up his engine. Was picked up by police multiple times. of service dog may have been a trigger for him. Became more and more agitated. Got to the point that his son (which has lived with him for 10 years), could no longer live with him and moved out (of note, Tigre will be evicted before he gets out of the hospital). Things got worse and worse until Fransisco was taken to ED when police saw him agitated when walking. Was taken to ED and admitted to [facility] in June 2023 (for 7 days). Was went to drug rehab after but immediately left and was still psychotic. Pt then walked around police station, took off belt and started throwing his shoes. Was then taken to ED and transferred to [facility]. Family (even though GAMAL was signed) was not reached out to by psychiatry team. 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 Started getting slower and slower to respond. Stopped taking food and po liquids while at [facility]. Family advocated for transfer to medical hospital. They report no sx of diagnosis of Huntingtons runs on either side of family. They do not want him returning to [facility]. Fransisco Block And Case Maker's review of systems today is positive for problems with Catatonia, jaw pain, knee pain. All other systems were reviewed and are negative. PAST PSYCHIATRIC HISTORY Diagnoses: Bipolar 1, depression, anxiety, polysubstance use disorder. Past psychiatric medications: Unclear. Recently sent over from [facility] on Risperdal, Zyprexa, Aricept, Namenda, Valbenazine. Suicide attempts: None reported Hospitalizations: Multiple. First 10 years ago. Recently at [facility] and [facility]. Psychiatrist (current): None currently. Therapist/Counselor (current): None Psychotherapy: None The patient otherwise denies any previous psychiatric problems or diagnoses, inpatient or outpatient mental health care, suicide attempts.. use of psychotropic medications, or any self injurious behavior. PAST MEDICAL & SURGICAL HISTORY Past Medical History: Diagnosis Date Hypertension Tobacco use disorder Past Surgical History: Procedure Laterality Date KNEE REPLACEMENT Bilateral FAMILY PSYCHIATRIC HISTORY -Mothers Cousin (mentally ill) and in a hospital (possibly ID) -Mother/Sister: MIKO (mom takes citalipram and bupriopion) -No bipolar disorder or Huntingtons in family The patient otherwise denies any family history of mental illness or treatment, psychiatric hospitalizations, suicide attempts, or substance problems. SOCIAL HISTORY Current living situation: Used to live with son, son moved out when he became manic, now Fransisco is getting evicted (will be homeless). No family willing to take him at this time (Mother is in 70's). Fransisco was homeless temporarily in the past 12 years ago. Was on the streets for a few months, then moved in with Son. 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 Trauma/abuse/DV history: Denies history: 3 months in [place], [place] due to spurs Legal issues/history: Upcoming court date in [facility] (as a victim of breaking and entering). Perhaps a court date for being unruly on the street, unsure of court date. Access to guns: none (to mothers knowledge), has [facility] Cultural/rastafari/ethnic considerations: Syn[employer] SUBSTANCE USE HISTORY -Meth, Opiates (previosly on suboxone, no recent use), hx of bath salt use (made him psychotic at one point, pt reports only using a few times). Multiple rehab in the past. According to the patient chart, he reports that he has been smoking cigarettes. He has never used smokeless tobacco. He reports that he does not currently use alcohol. He reports that he does not currently use drugs. ALLERGIES He is allergic to trazodone. MEDICATIONS Current Scheduled Medications: [Held by provider] amLODIPine (NORVASC) tablet 5 mg, 5 mg, Daily Diclofenac sodium (VOLTAREN) 1 % gel 2 g, 2 g, 4x daily donepezil (ARICEPT) tablet 5 mg, 5 mg, Daily Enoxaparin Sodium (LOVENOX) injection 40 mg, 40 mg, Daily [Held by provider] Lisinopril (PRINIVIL) tablet 20 mg, 20 mg, Daily Multivitamin w/ minerals (THERAPEUTIC-M) tablet 1 tablet, 1 tablet, Daily Nicotine (NICODERM CQ) 21 MG/24HR patch 1 patch, 1 patch, Q24H And VERIFY LINKED PATCH PLACEMENT, , Q12H Venlafaxine (EFFEXOR-XR) capsule XR 75 mg, 75 mg, Every BKF Current PRN Medications: Acetaminophen, 650 mg, Q6H PRN alum/mag hydrox.-simethicone, 30 mL, Q6H PRN guaiFENesin, 400 mg, Q6H PRN hydrOXYzine hcl, 50 mg, Q6H PRN Melatonin, 6 mg, QHS PRN Nicotine, 4 mg, Q2H PRN Ondansetron 4mg/2ml, 4 mg, Q6H PRN Or Ondansetron, 4 mg, Q6H PRN Sodium chloride 0.9%, 250 mL, PRN RESULTS/DATA REVIEW Labs and imaging have been reviewed. Recent Results (from the past 24 hour(s)) [facility] 7 - ED Collection Time: 07/29/23 2:37 PM Result Value Ref Range Sodium 136 135 - 145 mmol/L Potassium 5.2 (H) 3.5 - 5.0 mmol/L Chloride 103 98 - 108 mmol/L CO2 21 21 - 31 mmol/L Glucose 91 70 - 99 mg/dL BUN 13 7 - 25 mg/dL Creatinine 0.74 0.70 - 1.30 mg/dL Bun/Crea Ratio 18 Osmolality (Calculated) 287 278 - 305 mOsm/kg Anion Gap 17 7 - 17 mmol/L eGFR, CKD-EPI, Male >90 >=60 mL/min/1.73m2 HEPATIC FUNCTION PANEL Collection Time: 07/29/23 2:37 PM Result Value Ref Range Albumin 4.4 3.5 - 5.0 g/dL Bilirubin Direct 0.1 <0.3 mg/dL Bilirubin Total 0.6 <1.5 mg/dL ALP 63 32 - 126 U/L ALT 14 10 - 52 U/L AST 31 10 - 39 U/L Total Protein 7.0 6.4 - 8.3 g/dL HIGH SENSITIVITY TROPONIN I - SINGLE ORDER Collection Time: 07/29/23 2:37 PM Result Value Ref Range hs-Troponin I <3 <53 ng/L MAGNESIUM Collection Time: 07/29/23 2:37 PM Result Value Ref Range Magnesium 2.0 1.6 - 2.6 mg/dL CALCIUM Collection Time: 07/29/23 2:37 PM Result Value Ref Range Calcium 9.4 8.6 - 10.5 mg/dL PHOSPHATE, INORGANIC Collection Time: 07/29/23 2:37 PM Result Value Ref Range Phosphorous 4.1 2.2 - 4.6 mg/dL CBC AND ELECTRONIC DIFF Collection Time: 07/29/23 2:37 PM Result Value Ref Range WBC Count 6.39 3.73 - 10.10 K/uL RBC Count 5.20 4.38 - 5.83 M/uL Hemoglobin 15.5 13.4 - 16.8 g/dL Hematocrit 44.9 39.6 - 48.8 % Mean Cell Volume 86.3 79.0 - 94.5 fL Mean Cell Hgb 29.8 26.1 - 33.3 pg Mean Cell Hgb Conc 34.5 31.9 - 36.5 g/dL RBC Distribution 12.2 10.9 - 14.3 % Platelet Count 219 146 - 337 K/uL Mean Platelet Volume 9.5 8.7 - 12.3 fL DIFF STATUS Electronic Differential Segs + Bands Auto 67.7 % Immature Grans % 0.3 % Lymphocyte % Auto 24.6 % Monocyte % Auto 7.4 % Eosinophil % Auto 0.0 % Basophil % Auto 0.0 % Nucleated RBC 0.0 <=0.2 /100 WBC Segs + Bands,Absolute Auto 4.33 1.57 - 6.19 K/uL Immature Grans Absolute <0.04 <=0.07 K/uL Abs Lymph Auto 1.57 0.83 - 3.57 K/uL Abs Terry Auto 0.47 0.24 - 0.93 K/uL Abs Eos Auto <0.04 0.00 - 0.48 K/uL Abs Baso Auto <0.04 0.00 - 0.09 K/uL CK Collection Time: 07/29/23 2:37 PM Result Value Ref Range Creatine Kinase 123 30 - 220 U/L SARS-COV-2 RAPID Collection Time: 07/29/23 2:58 PM Specimen: Fluid/Swab Result Value Ref Range SARS-COV-2 NOT DETECTED NOT DETECTED INFLUENZA A/B RAPID MOLECULAR Collection Time: 07/29/23 2:58 PM Result Value Ref Range Influenza A, Molecular Not Detected Not Detected Influenza B, Molecular Not Detected Not Detected POC VENOUS BLOOD GAS Collection Time: 07/29/23 3:01 PM Result Value Ref Range Specimen Type Venous pH, Venous 7.45 (H) 7.32 - 7.43 pCO2, Venous 35 (L) 36 - 52 mm Hg pO2, Venous 79 mm Hg HCO3, Venous 24 22 - 29 mmol/L sO2 (O2 Saturation), Venous 97 (H) 70 - 80 % Base Excess 0.3 -3.0 - 3.0 mmol/L Glucose, Whole Blood 91 70 - 99 mg/dL Lactate, Whole Blood 1.2 0.5 - 1.6 mmol/L Sodium, Whole Blood 133 (L) 135 - 145 mmol/L Potassium, Whole Blood 4.0 3.5 - 5.0 mmol/L Ionized Calcium, Whole Blood 4.92 4.60 - 5.30 mg/dL Total Hemoglobin 15.6 13.4 - 16.8 g/dL Hematocrit (Calculated) 47.0 40.2 - 50.4 % Oxyhemoglobin 94 94 - 98 % Carboxyhemoglobin 2.2 (H) <=1.5 % Methemoglobin 0.7 <=1.5 % URINALYSIS REFLEX TO CULTURE PERFORMABLE Collection Time: 07/29/23 5:11 PM Result Value Ref Range Color Yellow Yellow Appearance Urine Clear Clear Glucose Urine Negative Negative Ketones Urine 40 mg/dL = Moderate (A) Negative Specific [place] Urine 1.028 1.001 - 1.035 Blood Urine Negative Negative pH Urine 5.5 5.0 - 7.0 Protein Urine Negative Negative Urobilinogen Urine 1.0 E.U./dL 0.2 E.U/dL, 1.0 E.U/dL Nitrites Urine Negative Negative Leukocyte Esterase Negative Negative RBC Urine 0-2 0 - 2 /HPF WBC Urine 0 - 5 0 - 5 /HPF Squamous/Epithelial Cells 0-2/hpf 0-2/hpf, 3-5/hpf = 1+ Bacteria ABSENT ABSENT CK Collection Time: 07/29/23 6:52 PM Result Value Ref Range Creatine Kinase 190 30 - 220 U/L URINE DRUG SCREEN 10 Collection Time: 07/29/23 8:46 PM Result Value Ref Range Amphetamine/Methamphetamine None Detected Cutoff: 500 ng/mL Barbiturates None Detected Cutoff: 200 ng/mL Benzodiazepines None Detected Cutoff: 200 ng/mL Buprenorphine None Detected Cutoff: 5 ng/mL Cannabinoids (Marijuana) None Detected Cutoff: 50 ng/mL Cocaine None Detected Cutoff: 150 ng/mL Fentanyl None Detected Cutoff: 1 ng/mL Methadone None Detected Cutoff: 300 ng/mL Opiates None Detected Cutoff: 300 ng/mL Oxycodone None Detected Cutoff: 100 ng/mL CBC,PLATELETS Collection Time: 07/30/23 4:19 AM Result Value Ref Range WBC Count 6.14 3.73 - 10.10 K/uL RBC Count 4.47 4.38 - 5.83 M/uL Hemoglobin 13.0 (L) 13.4 - 16.8 g/dL Hematocrit 39.3 (L) 39.6 - 48.8 % Mean Cell Volume 87.9 79.0 - 94.5 fL Mean Cell Hgb 29.1 26.1 - 33.3 pg Mean Cell Hgb Conc 33.1 31.9 - 36.5 g/dL RBC Distribution 12.5 10.9 - 14.3 % Platelet Count 210 146 - 337 K/uL Mean Platelet Volume 9.9 8.7 - 12.3 fL CHEM 7 (LYTES,BUN,CREA,GLUC) Collection Time: 07/30/23 4:19 AM Result Value Ref Range Sodium 137 135 - 145 mmol/L Potassium 3.9 3.5 - 5.0 mmol/L Chloride 106 98 - 108 mmol/L CO2 23 21 - 31 mmol/L Glucose 103 (H) 70 - 99 mg/dL BUN 12 7 - 25 mg/dL Creatinine 0.70 0.70 - 1.30 mg/dL Bun/Crea Ratio 17 Osmolality (Calculated) 287 278 - 305 mOsm/kg Anion Gap 12 7 - 17 mmol/L eGFR, CKD-EPI, Male >90 >=60 mL/min/1.73m2 MAGNESIUM Collection Time: 07/30/23 4:19 AM Result Value Ref Range Magnesium 1.8 1.6 - 2.6 mg/dL EKG: July 21 2023 Normal Sinus Rhythm Normal EKG Imaging/Studies: CT Head 07/22: FINDINGS: BRAIN/VENTRICLES: No acute intracranial hemorrhage or extraaxial fluid collection. Monreal-white differentiation is maintained. No evidence of mass, mass effect or midline shift. No evidence of hydrocephalus. CT HEAD WITHOUT CONTRAST, 07/29/2023 3:13 PM COMPARISON: No priors available for comparison. CLINICAL INDICATIONS: 48 years Male AMS, fall; RELEVANT CLINICAL HISTORY: TECHNIQUE: A series of transaxial computerized tomographic images are obtained from base of skull to vertex without intravenous contrast. Axial whole-head and thin section posterior fossa slices are provided. Reformats: Sagittal and coronal. FINDINGS: Monreal-white matter differentiation is preserved. No acute large territory infarction is seen. No acute intracranial hemorrhage is seen. No significant mass effect or midline shift. Ventricles are normal in size and configuration for patient age. Skull appears intact. Visualized orbits appear normal. Visualized paranasal sinuses are clear. IMPRESSION: No acute intracranial findings. I personally viewed and interpreted these images and I have reviewed and approved this report. AL STATUS EXAMINATION Appearance: disheveled and poor hygiene Attention: difficulties with concentration Orientation: person Interview Behavior: passive, withdrawn Attire: hospital gown Grooming: poor Eye Contact: poor Mood: depressed Affect: flat Motor Activity: Muscle rigidity, bilateral upper and lower extremities. Speech: slowed and latency, paucity Thought Process/Associations: paucity Suicidal Ideation: denied by patient Homicidal Ideation:denied by patient Delusions: unable to fully assess Hallucination: none Memory: poor remote, poor remote Insight/Judgment: poor insight and poor judgement Impulse Control: intact Fund of Knowledge: unable to assess Language/Vocabulary: Fluent Cymraes Cognition: deficits in executive function and working memory, although not fully assessed. Vital Signs: Blood pressure 142/85, pulse 89, temperature 97.4 F (36.3 C), resp. rate 16, height 1.956 m (6' 5), weight 107.3 kg (236 lb 8 oz), SpO2 96%. IMPRESSION Pt presentation more consistent with catatonia. Would hold antipsychotics and start Ativan 1mg TID. We will continue to follow. Would encourage primary team to reach out to [facility] [place] regarding their concern for Huntingtons Disease. Catatonia Bipolar 1 severe MRE manic with psychotic features MDD Per history Opiate use disorder (in remission) previusly on suboxone Cannabis Use Disorder per history Methemphetamine use disorder per history Hx of using Bath Salts Recent fall, injury to jaw/knee Malnutrition, Ketoacidosis Past Medical History: Diagnosis Date Hypertension Tobacco use disorder RECOMMENDATIONS Safety -No SI or HI, but would keep on medical hold and not allow to leave AMA. If concern for elopement, could consider 1:1 sitte.r Diagnostic Work-Up (Labs/Imaging): Please obtain further records and communication from [facility] team regarding their justification for Huntingtons diagnosis (eg. Do they have genetic testing, MRI showing caudate atrophy etc) and reason for initiating valbenazine, namenda/aricept etc. Would recommend workup for possible causes of encephalopathy Would recommend neuriology consult given recent weakness and sx, and to weigh in on possible etiology for sx (etiology is not clear - suggest CSF analysis; no family hs Columbia's, check viral, prion). Medications: Plan is to reduce medication burden. Start Ativan 1mg TID, monitor VS closely Stop Donepezil Would not restart Antipsychotics at this time (eg. Do not restart Risperdal) Continue Effexor 75mg po am, do not increase dose. Can use prn benztropine or diphenhydramine if concerned for acute dystonic reaction. Jaw stiffness per patient only started after acute injury/fall Continue to treat pain Ensure adequate hydration, monitor CK Non-Pharmacologic: Delirium management 1) Patient is exhibiting signs of delirium including periods of decreased awareness of the environment and impaired attention. The best treatment for delirium is to treat the underlying medical problems. 2) Non-pharmacologic evidence-based treatment of delirium includes repeated reorientation, promotion of good sleep hygiene, room with a window, early mobilization, correction of electrolyte abnormalities, removal of unnecessary attachments (adams catheter, peripheral IV's, NG tubes or other sources of infection), maximizing nutrition, using sensory aids (glasses, hearing aids), familiar faces (family, primary nurse), and minimizing unnecessary noise and stimuli. 3) Regarding pharmacology, avoid anticholinergic drugs and benzodiazepines to the extent possible. Opiates can cause and worsen delirium, but untreated pain can as well. Low dose antipsychotics can help. Please bear in mind that antipsychotics can lower seizure threshold and prolong QTc. Disposition/Consultations/Referral s/Follow-Up: Do not dischage prior to talking with psychiatry. Would recommend keeping patient on medical hold. Will defer to primary team/patient/family regarding discharge back to [facility] vs. Different facility. Thank you for this consult and being able to participate in this patient's care. We will continue to follow. This patient was seen and staffed with Dr. Gonzales. Please page [phone] with any questions or concerns from [phone] Sunday-Sunday. For urgent matters outside of these hours, please page [phone] for the founder president and ceo bus info consultant. Margareth Gold M.D. Ph.D. PGY-4 Psychiatry Attending's addendum: I assessed this patient Fransisco Cantor independently, face to face assessment was performed on 07/31/2023 and I agree with resident's Asif history, exam, assessment and clinical decision making. I reviewed available laboratory results, notes and other electronic records. Tox screen negative. Ketones in urine. Hgb 13 I reviewed available brain imaging and ECG - NSR with VR 99, [address] brain with no acuity. Cortical volume loss noted. I reviewed outside records through Care everywhere including ED notes 4.1.24 - Patient is a 39 year old male who presents to the emergency department with a chief complaint of altered mental status. He was transferred to the ED for medical clearance due to seizure like activity prior to arrival. Mr. Herrera reports that he has had symptoms for the past couple of days. Mr. Shepherd is not able to give a great history. Review of records note she has had some bizarre behavior and family has been concerned regarding seizure activity. Apparently at the [facility] facility he walked out to the nurses station and was observed to lower himself to the floor. He responded to a sternal rub and was able to get back up on his own. Prior to my seeing him, he again lowered himself to the floor. Security was able to get him back up into bed. He is not very cooperative with history or exam at this time. Transferred back to [facility]. No family hx Malu's. Medical History Date Comments Osteoarthritis of both knees SCHEDULED FOR THE SURGERY ON 04/01/2018 Anxiety Current smoker H/O opioid abuse (HCC) ON SUBOXONE Home meds Medication Sig Dispensed Refills Start Date End Date Status hydrOXYzine (VISTARIL) 25 MG capsule Take 25 mg by mouth daily 0 Active gabapentin (NEURONTIN) 300 MG capsule Take 300 mg by mouth 2 times daily.. 0 Active QUEtiapine (SEROQUEL) 100 MG tablet Take 100 mg by mouth nightly 0 Active buprenorphine-naloxone (SUBOXONE) 4-[address] film [address] 1 Film under the tongue daily. 0 Active Addition of Effexor I reviewed [facility] report. BUPRENORPHINE-NALOX 8-2MG FILM 06/13/2023 06/04/2023 28 Each 3 14 TERESSA ROBERTS MD, [facility] BUPRENORPHINE-NALOX 8-2MG FILM 05/30/2023 04/18/2023 28 Each 3 14 TERESSA ROBERTS MD, [facility] GABAPENTIN 300 MG CAPSULE 03/12/2023 01/08/2023 30 Each 2 30 B ADELE GARDNER [facility] GABAPENTIN 300 MG CAPSULE 02/05/2023 01/08/2023 30 Each 2 30 B ADELE GARDNER I obtained collateral info from primary team. Education and support were provided to the patient. Flat affect, psychomotor slowing, posturing in UE. Stiffness in UE, LE. Patient expressed understanding of the above discussed. Treatment planning and coordination of care with medical team. Wendy Gonzales MD [facility] 07-30-2023 Nurse Note 2015: Pt is complaining of 8/10 leg and neck pain. HME/Justyn added one dose of Toradol. 0117: Pt unable to sleep. HME/Justyn added a one time dose of Benadryl. 0358: Pt still unable to sleep and requesting Hydroxyzine to help him sleep. HME/Justyn notified and medication added to MAR. [facility] 07-30-2023 Plan of care note Problem: Adult Inpatient Plan of Care Goal: Plan of Care Review Outcome: Progressing Goal: Patient-Specific Goal (Individualized) Outcome: Progressing Goal: Absence of Hospital-Acquired Illness or Injury Outcome: Progressing Goal: Optimal Comfort and Wellbeing Outcome: Progressing Goal: Readiness for Transition of Care Outcome: Progressing [facility] 07-30-2023 Nurse Note Secondary assessment completed per policy. Pt assessment unchanged from previous, unless noted in flowsheet. Pt resting in bed at this time with no wants or needs. Denies chest pain, SOB, or dizziness. Call light within reach, bed alarm turned on. Will continue to monitor. [facility] 07-29-2023 Plan of care note Overnight Cross Cover Call: Previous Progress Notes and/or H&P Reviewed. Notified by RN, patient reporting 8/10 neck and leg pain. Wants something stronger than tylenol, no recent documented use. On scheduled voltaren gel. Hx polysubstance abuse. Cr 0.74. Give toradol 15mg x1. 0145 Notified by RN, patient requesting something for sleep. Has had his PRN melatonin. Here with dystonia vs catatonia and risperidone/ingrezza being held. Added benadryl 50mg x1. 0414 Notified by RN, patient still not sleeping, requesting something else for sleep. He does have an allergy noted to trazodone. On clarification if he has a preferred sleep aide, he requests hydroxyzine. Added hydroxyzine 25mg x1. Pt also requesting an additional dose of pain medication, prior dose of toradol was effective. Reordered toradol 15mg x1. FU with primary team in AM. Harriett Bridges PA-C [facility] Work Phone: 07-29-2023 Emergency department Note Called T8 - report provided to Saida GONZALEZ [facility] 07-29-2023 Emergency department Note Called T8 - report provided to Saida GONZALEZ Pt sitting up in bed and requesting foot. Pt provided sack lunch and juice. Provided the pt with a phone and requested he call his mother. dEPARTMENT of Emergency Medicine CHIEF COMPLAINT Fatigue (Pt arrived via EMS from [facility] due to generalized weakness for 1 week requiring the use of a wheelchair. Pt reports neck pain 10/10 due to fall today. Pt reports he has not been able to eat for one week due to not being able to move my mouth. ) DONALD Cantor is a 48 y.o. male who presents via EMS from [facility] for evaluation of generalized weakness and a fall. Patient reports that he has been in a wheelchair for the past week, because he is too weak to ambulate. Feels like he is weak because he has not been eating. Reports he hasn't eaten because his mouth hurts. Today he tried to transfer to the wheelchair and fell to the ground. Complains of posterior neck pain. Denies any other injury/trauma. Denies HANSON, lightheadedness, CP, SOB, abdominal pain, N/V/D, F/C. REVIEW OF SYSTEMS Review of Systems Constitutional: Positive for appetite change. Negative for chills, fatigue and fever. HENT: Negative for congestion, ear pain, rhinorrhea and sore throat. Respiratory: Negative for cough and shortness of breath. Cardiovascular: Negative for chest pain and palpitations. Gastrointestinal: Negative for abdominal pain, diarrhea, nausea and vomiting. Genitourinary: Negative for dysuria, flank pain, frequency and urgency. Musculoskeletal: Negative for myalgias. Skin: Negative for rash. Neurological: Positive for weakness. Negative for dizziness, light-headedness, numbness and headaches. PAST MEDICAL HISTORY No past medical history on file. SURGICAL HISTORY No past surgical history on file. CURRENT MEDICATIONS No current facility-administered medications for this encounter. No current outpatient medications on file. ALLERGIES Allergies Allergen Reactions Trazodone Anxiety FAMILY HISTORY No family history on file. SOCIAL HISTORY Social History Socioeconomic History Marital status: Single Spouse name: Not on file Number of children: Not on file Years of education: Not on file Highest education level: Not on file Occupational History Not on file Tobacco Use Smoking status: Every Day Current packs/day: 0.50 Types: Cigarettes Smokeless tobacco: Never Substance and Sexual Activity Alcohol use: Not Currently Drug use: Not Currently Sexual activity: Not on file Other Topics Concern Not on file Social History Narrative Not on file Social Determinants of Health Financial Resource Strain: Not on file Food Insecurity: Not on file Transportation Needs: Not on file Physical Activity: Not on file Stress: Not on file Social Connections: Not on file Intimate Partner Violence: Not on file Housing Stability: Patient Unable To Answer (07/05/2023) Received from [employer] Housing Stability Vital Sign Unable to Pay for Housing in the Last Year: Patient unable to answer Number of Places Lived in the Last Year: Not on file Unstable Housing in the Last Year: Patient unable to answer PHYSICAL EXAM BP 120/74 Pulse 104 Resp 18 Ht 1.956 m (6' 5) SpO2 95% Smoking Status Every Day Physical Exam Vitals and nursing note reviewed. Constitutional: Appearance: He is well-developed. HENT: Head: Normocephalic and atraumatic. Right Ear: External ear normal. Left Ear: External ear normal. Nose: Nose normal. Mouth/Throat: Mouth: Mucous membranes are dry. Comments: Oral mucosa is extremely dry. There are layers of dry skin stuck to his lips Eyes: Conjunctiva/sclera: Conjunctivae normal. Pupils: Pupils are equal, round, and reactive to light. Cardiovascular: Rate and Rhythm: Normal rate and regular rhythm. Heart sounds: Normal heart sounds. No murmur heard. No friction rub. No gallop. Pulmonary: Effort: Pulmonary effort is normal. Breath sounds: Normal breath sounds. Abdominal: General: Bowel sounds are normal. There is no distension. Palpations: Abdomen is soft. There is no mass. Tenderness: There is no abdominal tenderness. There is no guarding or rebound. Hernia: No hernia is present. Musculoskeletal: General: Normal range of motion. Cervical back: Normal range of motion and neck supple. Skin: General: Skin is warm and dry. Neurological: Mental Status: He is lethargic. Motor: Weakness present. Comments: L grasp weaker than R grasp BLE weakness is symmetric but does have good dorsi/plantar flexion Speech is slow Lethargic Psychiatric: Behavior: Behavior normal. Thought Content: Thought content normal. Judgment: Judgment normal. LABS Results for orders placed or performed during the hospital encounter of 07/29/23 SARS-COV-2 RAPID Specimen: Fluid/Swab Result Value Ref Range SARS-COV-2 NOT DETECTED NOT DETECTED [facility] 7 - ED Result Value Ref Range Sodium 136 135 - 145 mmol/L Potassium 5.2 (H) 3.5 - 5.0 mmol/L Chloride 103 98 - 108 mmol/L CO2 21 21 - 31 mmol/L Glucose 91 70 - 99 mg/dL BUN 13 7 - 25 mg/dL Creatinine 0.74 0.70 - 1.30 mg/dL Bun/Crea Ratio 18 Osmolality (Calculated) 287 278 - 305 mOsm/kg Anion Gap 17 7 - 17 mmol/L eGFR, CKD-EPI, Male >90 >=60 mL/min/1.73m2 HEPATIC FUNCTION PANEL Result Value Ref Range Albumin 4.4 3.5 - 5.0 g/dL Bilirubin Direct 0.1 <0.3 mg/dL Bilirubin Total 0.6 <1.5 mg/dL ALP 63 32 - 126 U/L ALT 14 10 - 52 U/L AST 31 10 - 39 U/L Total Protein 7.0 6.4 - 8.3 g/dL HIGH SENSITIVITY TROPONIN I - SINGLE ORDER Result Value Ref Range hs-Troponin I <3 <53 ng/L MAGNESIUM Result Value Ref Range Magnesium 2.0 1.6 - 2.6 mg/dL CALCIUM Result Value Ref Range Calcium 9.4 8.6 - 10.5 mg/dL PHOSPHATE, INORGANIC Result Value Ref Range Phosphorous 4.1 2.2 - 4.6 mg/dL INFLUENZA A/B RAPID MOLECULAR Result Value Ref Range Influenza A, Molecular Not Detected Not Detected Influenza B, Molecular Not Detected Not Detected CBC AND ELECTRONIC DIFF Result Value Ref Range WBC Count 6.39 3.73 - 10.10 K/uL RBC Count 5.20 4.38 - 5.83 M/uL Hemoglobin 15.5 13.4 - 16.8 g/dL Hematocrit 44.9 39.6 - 48.8 % Mean Cell Volume 86.3 79.0 - 94.5 fL Mean Cell Hgb 29.8 26.1 - 33.3 pg Mean Cell Hgb Conc 34.5 31.9 - 36.5 g/dL RBC Distribution 12.2 10.9 - 14.3 % Platelet Count 219 146 - 337 K/uL Mean Platelet Volume 9.5 8.7 - 12.3 fL DIFF STATUS Electronic Differential Segs + Bands Auto 67.7 % Immature Grans % 0.3 % Lymphocyte % Auto 24.6 % Monocyte % Auto 7.4 % Eosinophil % Auto 0.0 % Basophil % Auto 0.0 % Nucleated RBC 0.0 <=0.2 /100 WBC Segs + Bands,Absolute Auto 4.33 1.57 - 6.19 K/uL Immature Grans Absolute <0.04 <=0.07 K/uL Abs Lymph Auto 1.57 0.83 - 3.57 K/uL Abs Terry Auto 0.47 0.24 - 0.93 K/uL Abs Eos Auto <0.04 0.00 - 0.48 K/uL Abs Baso Auto <0.04 0.00 - 0.09 K/uL POC VENOUS BLOOD GAS Result Value Ref Range Specimen Type Venous pH, Venous 7.45 (H) 7.32 - 7.43 pCO2, Venous 35 (L) 36 - 52 mm Hg pO2, Venous 79 mm Hg HCO3, Venous 24 22 - 29 mmol/L sO2 (O2 Saturation), Venous 97 (H) 70 - 80 % Base Excess 0.3 -3.0 - 3.0 mmol/L Glucose, Whole Blood 91 70 - 99 mg/dL Lactate, Whole Blood 1.2 0.5 - 1.6 mmol/L Sodium, Whole Blood 133 (L) 135 - 145 mmol/L Potassium, Whole Blood 4.0 3.5 - 5.0 mmol/L Ionized Calcium, Whole Blood 4.92 4.60 - 5.30 mg/dL Total Hemoglobin 15.6 13.4 - 16.8 g/dL Hematocrit (Calculated) 47.0 40.2 - 50.4 % Oxyhemoglobin 94 94 - 98 % Carboxyhemoglobin 2.2 (H) <=1.5 % Methemoglobin 0.7 <=1.5 % RADIOLOGY CT SPINE CERVICAL WITHOUT CONTRAST Final Result IMPRESSION: No fracture or traumatic malalignment in the cervical spine. I personally viewed and interpreted these images and I have reviewed and approved this report. HEAD WITHOUT CONTRAST Final Result IMPRESSION: No acute intracranial findings. I personally viewed and interpreted these images and I have reviewed and approved this report. CHEST 1 VIEW PORTABLE Final Result IMPRESSION: No acute cardiopulmonary disease EKG done and interpreted by ED physician MEDICATIONS DURING VISIT Medications Sodium chloride 0.9% IV solution 1,000 mL (0 mL Intravenous Stopped 07/29/23 162) Sodium chloride 0.9% IV solution 1,000 mL (1,000 mL Intravenous $$New Bag$$ 07/29/23 1623) LORazepam (ATIVAN) injection 1 mg (1 mg Intravenous Given 07/29/23 1650) Sodium chloride 0.9% IV solution 1,000 mL (1,000 mL Intravenous $$New Bag$$ 07/29/23 3849) ED COURSE & MEDICAL DECISION MAKING Fransisco Cantor IS A 48 y.o. male who presented with Chief Complaint Patient presents with Fatigue Pt arrived via EMS from [facility] due to generalized weakness for 1 week requiring the use of a wheelchair. Pt reports neck pain 10/10 due to fall today. Pt reports he has not been able to eat for one week due to not being able to move my mouth. Patient was prescribed the following medications for home: New Prescriptions No medications on file Dx: ICD-10-CM 1. Dehydration E86.0 2. Altered mental status, unspecified altered mental status type R41.82 3. Fall, initial encounter W19.XXXA ED Course Prior medical records were reviewed. Patient's past medical history, social history, family history and surgical history was reviewed. All pertinent labs and imaging results were reviewed and interpreted by myself and the attending physician. The patient was updated regarding findings, and was re-assessed during ED stay. Dispo Reasons to return to the ED, potential complications, expected course of the patient's condition, and recommended treatments were discussed with the patient. The patient was also instructed to follow up with their primary care physician and/or any appropriate specialists. The patient expressed understanding and agreement, and will be discharged in good condition. Ivana Rivas MD was included in all aspects of care including assessment, plan, and diagnosis; Ivana Rivas MD was physically present to examine the patient. Medical Decision Making DDx: fall, neck fracture, neck strain, neck contusion, dehydration, electrolyte derangement, KADEN, acute psychosis, polypharmacy, catatonia Patient presented to the emergency department via EMS from [facility] for evaluation of generalized weakness and fall. He is ill-appearing. He is tachycardic. Normotensive. On my exam he is lethargic and answers questions with one-word sentences. Reports that he has been in a wheelchair for the past week and unable to ambulate secondary to generalized weakness. He indicates generalized weakness secondary to decreased p.o. intake from mouth pain. His oral mucosa is extremely dry. He complains of posterior neck pain secondary to fall. There is tenderness to the base of the cervical spine with no step-offs or deformities. His left grasp is weaker than his right grasp. He is unable to hold either leg up off the bed but does have good dorsal plantar flexion bilaterally. EKG done and interpreted by ED physician. CT imaging of head and C-spine are unremarkable. Labs unremarkable. Of note, I did take care this patient on 07/21/2023 after he was sent here from [facility] for evaluation chest pain and left wrist pain. At that time patient was sitting up in bed and conversing without difficulty. Today he seems much more lethargic. Concern for polypharmacy versus catatonia. On 07/21/2023 his medication list included lisinopril, Namenda, vitamin-B, Zofran, Risperdal and Effexor. Review of his medication list today indicates he is still on those medications, but he has also been placed on Invega, Haldol, Zyprexa and Aricept. Will trial a dose of ativan, but regardless of reaction will require admission for further management and psych consultation (medication review/management). ADDENDUM: After Ativan given, patient more alert. He is sitting up in bed. He used the urinal and is not eating a sandwich. He stated that he remembers me from his las visit. Suspect catatonia as symptoms would not improve with Ativan if this was polypharmacy. Amount and/or Complexity of Data Reviewed Labs: ordered. Radiology: ordered. Risk Prescription drug management. Decision regarding hospitalization. LABS Results for orders placed or performed during the hospital encounter of 07/29/23 SARS-COV-2 RAPID Specimen: Fluid/Swab Result Value Ref Range SARS-COV-2 NOT DETECTED NOT DETECTED [facility] 7 - ED Result Value Ref Range Sodium 136 135 - 145 mmol/L Potassium 5.2 (H) 3.5 - 5.0 mmol/L Chloride 103 98 - 108 mmol/L CO2 21 21 - 31 mmol/L Glucose 91 70 - 99 mg/dL BUN 13 7 - 25 mg/dL Creatinine 0.74 0.70 - 1.30 mg/dL Bun/Crea Ratio 18 Osmolality (Calculated) 287 278 - 305 mOsm/kg Anion Gap 17 7 - 17 mmol/L eGFR, CKD-EPI, Male >90 >=60 mL/min/1.73m2 HEPATIC FUNCTION PANEL Result Value Ref Range Albumin 4.4 3.5 - 5.0 g/dL Bilirubin Direct 0.1 <0.3 mg/dL Bilirubin Total 0.6 <1.5 mg/dL ALP 63 32 - 126 U/L ALT 14 10 - 52 U/L AST 31 10 - 39 U/L Total Protein 7.0 6.4 - 8.3 g/dL HIGH SENSITIVITY TROPONIN I - SINGLE ORDER Result Value Ref Range hs-Troponin I <3 <53 ng/L MAGNESIUM Result Value Ref Range Magnesium 2.0 1.6 - 2.6 mg/dL CALCIUM Result Value Ref Range Calcium 9.4 8.6 - 10.5 mg/dL PHOSPHATE, INORGANIC Result Value Ref Range Phosphorous 4.1 2.2 - 4.6 mg/dL INFLUENZA A/B RAPID MOLECULAR Result Value Ref Range Influenza A, Molecular Not Detected Not Detected Influenza B, Molecular Not Detected Not Detected CBC AND ELECTRONIC DIFF Result Value Ref Range WBC Count 6.39 3.73 - 10.10 K/uL RBC Count 5.20 4.38 - 5.83 M/uL Hemoglobin 15.5 13.4 - 16.8 g/dL Hematocrit 44.9 39.6 - 48.8 % Mean Cell Volume 86.3 79.0 - 94.5 fL Mean Cell Hgb 29.8 26.1 - 33.3 pg Mean Cell Hgb Conc 34.5 31.9 - 36.5 g/dL RBC Distribution 12.2 10.9 - 14.3 % Platelet Count 219 146 - 337 K/uL Mean Platelet Volume 9.5 8.7 - 12.3 fL DIFF STATUS Electronic Differential Segs + Bands Auto 67.7 % Immature Grans % 0.3 % Lymphocyte % Auto 24.6 % Monocyte % Auto 7.4 % Eosinophil % Auto 0.0 % Basophil % Auto 0.0 % Nucleated RBC 0.0 <=0.2 /100 WBC Segs + Bands,Absolute Auto 4.33 1.57 - 6.19 K/uL Immature Grans Absolute <0.04 <=0.07 K/uL Abs Lymph Auto 1.57 0.83 - 3.57 K/uL Abs Terry Auto 0.47 0.24 - 0.93 K/uL Abs Eos Auto <0.04 0.00 - 0.48 K/uL Abs Baso Auto <0.04 0.00 - 0.09 K/uL POC VENOUS BLOOD GAS Result Value Ref Range Specimen Type Venous pH, Venous 7.45 (H) 7.32 - 7.43 pCO2, Venous 35 (L) 36 - 52 mm Hg pO2, Venous 79 mm Hg HCO3, Venous 24 22 - 29 mmol/L sO2 (O2 Saturation), Venous 97 (H) 70 - 80 % Base Excess 0.3 -3.0 - 3.0 mmol/L Glucose, Whole Blood 91 70 - 99 mg/dL Lactate, Whole Blood 1.2 0.5 - 1.6 mmol/L Sodium, Whole Blood 133 (L) 135 - 145 mmol/L Potassium, Whole Blood 4.0 3.5 - 5.0 mmol/L Ionized Calcium, Whole Blood 4.92 4.60 - 5.30 mg/dL Total Hemoglobin 15.6 13.4 - 16.8 g/dL Hematocrit (Calculated) 47.0 40.2 - 50.4 % Oxyhemoglobin 94 94 - 98 % Carboxyhemoglobin 2.2 (H) <=1.5 % Methemoglobin 0.7 <=1.5 % RADIOLOGY CT SPINE CERVICAL WITHOUT CONTRAST Final Result IMPRESSION: No fracture or traumatic malalignment in the cervical spine. I personally viewed and interpreted these images and I have reviewed and approved this report. HEAD WITHOUT CONTRAST Final Result IMPRESSION: No acute intracranial findings. I personally viewed and interpreted these images and I have reviewed and approved this report. CHEST 1 VIEW PORTABLE Final Result IMPRESSION: No acute cardiopulmonary disease EKG done and interpreted by ED physician MEDICATIONS DURING VISIT Medications Sodium chloride 0.9% IV solution 1,000 mL (0 mL Intravenous Stopped 07/29/231623) Sodium chloride 0.9% IV solution 1,000 mL (1,000 mL Intravenous $$New Bag$$ 07/29/23 1623) LORazepam (ATIVAN) injection 1 mg (1 mg Intravenous Given 07/29/23 1650) Sodium chloride 0.9% IV solution 1,000 mL (1,000 mL Intravenous $$New Bag$$ 07/29/23 1650) ED COURSE & MEDICAL DECISION MAKING Fransisco Cantor IS A 48 y.o. male who presented with Chief Complaint Patient presents with Fatigue Pt arrived via EMS from [facility] due to generalized weakness for 1 week requiring the use of a wheelchair. Pt reports neck pain 10/10 due to fall today. Pt reports he has not been able to eat for one week due to not being able to move my mouth. Patient was prescribed the following medications for home: New Prescriptions No medications on file Dx: ICD-10-CM 1. Dehydration E86.0 2. Altered mental status, unspecified altered mental status type R41.82 3. Fall, initial encounter W19.XXXA ED Course Prior medical records were reviewed. Patient's past medical history, social history, family history and surgical history was reviewed. All pertinent labs and imaging results were reviewed and interpreted by myself and the attending physician. The patient was updated regarding findings, and was re-assessed during ED stay. Dispo Admit Ivana Rivas MD was included in all aspects of care including assessment, plan, and diagnosis; Ivana Rivas MD was physically present to examine the patient. NANETTE Patricio 07/29/23 3086 NANETTE Patricio 07/29/23 1711 Images from the original note were not included. HISTORY Fransisco Cantor is a 48 y.o. male who presents from [facility]. He has a past history of polysubstance use and unspecified psychiatric issues. The patient reportedly was admitted to their facility on July 12 after having been paranoid, in coherent, and sitting in his own feces in his basement. He was seen in this facility on July 20 for chest pain. At that visit he was noted to be alert, oriented, and participated in the history and physical. He was ambulatory at that time. Today, [facility] says that he has had progressively work sitting weakness for 1 week requiring the use of a wheelchair. They did not mention any trauma. After arriving here, the patient states that he fell out of his wheelchair today. He also states that he has not been eating and drinking anything for 1 week because of trouble moving his mouth and swallowing. PERTINENT EXAM The patient is ill-appearing. His oral mucosa is extremely dry. His lips are cracked and bleeding. He is slow to answer questions and speaks in a very soft voice. He does not have a lot of spontaneous lying in the bed. No external signs of head trauma. No step-off or deformity but he complains of tenderness in the cervical spine. Benign chest and abdomen. Seems able to move all extremities in the bed but will not hold any extremities off the bed against gravity when asked. He has no clonus IMPRESSION AND PLAN CT SPINE CERVICAL WITHOUT CONTRAST Final Result IMPRESSION: No fracture or traumatic malalignment in the cervical spine. I personally viewed and interpreted these images and I have reviewed and approved this report. HEAD WITHOUT CONTRAST Final Result IMPRESSION: No acute intracranial findings. I personally viewed and interpreted these images and I have reviewed and approved this report. CHEST 1 VIEW PORTABLE Final Result IMPRESSION: No acute cardiopulmonary disease Results for orders placed or performed during the hospital encounter of 07/29/23 SARS-COV-2 RAPID Specimen: Fluid/Swab Result Value Ref Range SARS-COV-2 NOT DETECTED NOT DETECTED [facility] 7 - ED Result Value Ref Range Sodium 136 135 - 145 mmol/L Potassium 5.2 (H) 3.5 - 5.0 mmol/L Chloride 103 98 - 108 mmol/L CO2 21 21 - 31 mmol/L Glucose 91 70 - 99 mg/dL BUN 13 7 - 25 mg/dL Creatinine 0.74 0.70 - 1.30 mg/dL Bun/Crea Ratio 18 Osmolality (Calculated) 287 278 - 305 mOsm/kg Anion Gap 17 7 - 17 mmol/L eGFR, CKD-EPI, Male >90 >=60 mL/min/1.73m2 HEPATIC FUNCTION PANEL Result Value Ref Range Albumin 4.4 3.5 - 5.0 g/dL Bilirubin Direct 0.1 <0.3 mg/dL Bilirubin Total 0.6 <1.5 mg/dL ALP 63 32 - 126 U/L ALT 14 10 - 52 U/L AST 31 10 - 39 U/L Total Protein 7.0 6.4 - 8.3 g/dL HIGH SENSITIVITY TROPONIN I - SINGLE ORDER Result Value Ref Range hs-Troponin I <3 <53 ng/L MAGNESIUM Result Value Ref Range Magnesium 2.0 1.6 - 2.6 mg/dL CALCIUM Result Value Ref Range Calcium 9.4 8.6 - 10.5 mg/dL PHOSPHATE, INORGANIC Result Value Ref Range Phosphorous 4.1 2.2 - 4.6 mg/dL INFLUENZA A/B RAPID MOLECULAR Result Value Ref Range Influenza A, Molecular Not Detected Not Detected Influenza B, Molecular Not Detected Not Detected CBC AND ELECTRONIC DIFF Result Value Ref Range WBC Count 6.39 3.73 - 10.10 K/uL RBC Count 5.20 4.38 - 5.83 M/uL Hemoglobin 15.5 13.4 - 16.8 g/dL Hematocrit 44.9 39.6 - 48.8 % Mean Cell Volume 86.3 79.0 - 94.5 fL Mean Cell Hgb 29.8 26.1 - 33.3 pg Mean Cell Hgb Conc 34.5 31.9 - 36.5 g/dL RBC Distribution 12.2 10.9 - 14.3 % Platelet Count 219 146 - 337 K/uL Mean Platelet Volume 9.5 8.7 - 12.3 fL DIFF STATUS Electronic Differential Segs + Bands Auto 67.7 % Immature Grans % 0.3 % Lymphocyte % Auto 24.6 % Monocyte % Auto 7.4 % Eosinophil % Auto 0.0 % Basophil % Auto 0.0 % Nucleated RBC 0.0 <=0.2 /100 WBC Segs + Bands,Absolute Auto 4.33 1.57 - 6.19 K/uL Immature Grans Absolute <0.04 <=0.07 K/uL Abs Lymph Auto 1.57 0.83 - 3.57 K/uL Abs Terry Auto 0.47 0.24 - 0.93 K/uL Abs Eos Auto <0.04 0.00 - 0.48 K/uL Abs Baso Auto <0.04 0.00 - 0.09 K/uL POC VENOUS BLOOD GAS Result Value Ref Range Specimen Type Venous pH, Venous 7.45 (H) 7.32 - 7.43 pCO2, Venous 35 (L) 36 - 52 mm Hg pO2, Venous 79 mm Hg HCO3, Venous 24 22 - 29 mmol/L sO2 (O2 Saturation), Venous 97 (H) 70 - 80 % Base Excess 0.3 -3.0 - 3.0 mmol/L Glucose, Whole Blood 91 70 - 99 mg/dL Lactate, Whole Blood 1.2 0.5 - 1.6 mmol/L Sodium, Whole Blood 133 (L) 135 - 145 mmol/L Potassium, Whole Blood 4.0 3.5 - 5.0 mmol/L Ionized Calcium, Whole Blood 4.92 4.60 - 5.30 mg/dL Total Hemoglobin 15.6 13.4 - 16.8 g/dL Hematocrit (Calculated) 47.0 40.2 - 50.4 % Oxyhemoglobin 94 94 - 98 % Carboxyhemoglobin 2.2 (H) <=1.5 % Methemoglobin 0.7 <=1.5 % It is unclear to me what is causing this patient's altered mental status. He is on quite a bit of medications [place]. It certainly is possible that this is all secondary to over medication. He has questionable muscular rigidity but no inducible, tremor, or abnormal eye movements. This is not classic for serotonin syndrome. A CK is pending. He also could be catatonic. We will try all a dose of IV Ativan. He certainly looks dehydrated. He is receiving a 2 L of saline here. The patient will be admitted for further medical evaluation. Psychiatric consultation can be considered inpatient. Medical Decision Making Problems Addressed: Altered mental status, unspecified altered mental status type: acute illness or injury that poses a threat to life or bodily functions Dehydration: acute illness or injury Fall, initial encounter: acute illness or injury Amount and/or Complexity of Data Reviewed Independent Historian: caregiver and EMS Details: [place] Labs: ordered. Decision-making details documented in ED Course. Radiology: ordered. Decision-making details documented in ED Course. Risk Prescription drug management. Decision regarding hospitalization. Diagnosis or treatment significantly limited by social determinants of health. On 07/29/2023, I saw and evaluated the patient with SALLY. I provided a substantive portion of the care for this patient. I personally performed all aspects of the medical decision making for this encounter. I have reviewed and verified this with the SALLY so that it accurately reflects our care Ivana Rivas M.D., [facility] Conservation Planner Clinical Professor Of Emergency Medicine Ivana Rivas MD 07/29/23 5384 The patient does seem much better after 2 L of IV fluids and a mg of Ativan. Again, there may be a component of catatonia here that we fixed with the Ativan. But he looks extremely dry and I am not comfortable discharging him back to [facility]. He will be admitted medically here and [facility] psychiatry can consult on him routinely tomorrow Ivana Rivas MD 07/29/23 1710 Pt identified as a Fall risk. ED fall bundle kit implemented and visual fall communication tool reviewed with patient. Fall prevention sign displayed. Call light within reach. Patient verbalized understanding of fall risk yes Pt/ family understands not get out of bed without assistance yes Instructed to call for help to get of bed. yes Additional comments yes Pt advised that if he needs to get out of bed to use the call light and we will assist him out of bed, pt verbalized understanding. Call light within pt reach Report from [facility]. Admission on 07/18/23 for aggression. Patient started to decline on Sunday, July 22. Muscle weakness, slurred speech. In and out of orientation. Patient only taking a couple bites of food during meals. Bed: [facility] Expected date: Expected time: Means of arrival: Comments: [facility] documented in this encounter [facility] 07-29-2023 History and physical note Internal Medicine Admission History & Physical Patient: Fransisco Cantor, 1975, [id number] Physician: Keegan Jiang MD, Gen Med A service Date of face to face patient encounter: 07/29/2023. Chief Complaint: Weakness, fall, unable to open mouth Impression/Plan: Fransisco Cantor is a 48 y.o. male with a history of an unspecified psychiatric disorder, HTN, and polysubstance use who presents on 07/29/2023 from [facility] with jaw stiffness, weakness, and a fall. Jaw Stiffness: Concern for dystonia vs. Catatonia with addition of new anti-psychotics. It is improving after ativan and fluids. - s/p ativan in the ED - will trial benadryl 50 mg IV. Can dose Q4-6h for ongoing symptoms Starvation Ketosis: Due to being unable to open mouth. UA with ketones - Regular diet - mIVF Fall/Weakness: Patient has been in a wheel chair for the past 3-4 days. Patient attributing to not eating. Currently no back pain. 5-/5 BLUE strength. Intact sensation. Unclear etiology. - CK WNL - CT Head and Neck negative for acute fracture - PT/OT consult - May require neurology consult if not improving Unspecified psychiatry disorder: Patient reports a history of bipolar 1 and schizophrenia. He thinks he is being evaluated for malu's. He has no family history of malu's. Denies SI/HI/Hallucinations - continue effexor - holding risperidone 3mg daily and Ingrezza 40 mg daily - Psych consulted; appreciate recs Neck Pain: - Tylenol PRN HTN: home Lisinopril 20mg daily and amlodipine 5mg daily Tobacco use disorder: Nicotine patch and gum PRN Complexity. Hyponatremia - Secondary to fluid shifts. Monitor. Any conditions listed below are present on admission unless otherwise specified. . Checklist: DVT Prophylaxis: Enoxaprin Dispo: pending evaluation and treatment. Admit to Gen Med A Code Status: Full Code Diet: DIET REGULAR Staffed with Margareth Harrell MD, MPH Signed, Keegan Jiang MD Internal Medicine, PG-3 History Of Present Illness: Fransisco Cantor is a 48 y.o. male with a history of unspecified psychiatric disorder, HTN, and polysubstance use who presents on 07/29/2023 from [facility] with jaw stiffness, weakness, and a fall. Patient presenting via EMS from [facility] for weakness and a fall. Patient reports for the past 3-4 days he has been unable to open his mouth. Patient has been unable to eat since then. He has also been feeling weak primarily in his legs, which he attributes to not eating, causing him to require a wheel chair. Of note, he fell out of his wheel chair before presenting to the ED when trying to transfer, hitting the side of his jaw and knees. Patient denies fevers, chills, abdominal pain, diarrhea, dysuria, cough, sore throat, shortness of breath, chest pain, back pain, dysphagia, new masses, SI, HI, or hallucinations. In the ED, patient received IV fluids and Ativan with improvement in his symptoms. CT Head and neck negative for fracture. Patient recently seen 07/20 in the [facility] ED for chest pain. At that time, staff from [facility] reports the patient was admitted to their facility on 07/13/2023 after being pink slipped. He has been there voluntarily after family found him in his basement sitting in his own feces demonstrating manic and paranoid behavior after not sleeping for days. He was on lisinopril, Namenda, vitamin-B, Zofran, Risperdal and Effexor. Patient seen again 07/22 at [facility] for potential seizures and recurrently collapsing to the ground. Work up negative at that time. Patient reports a history of schizophrenia and bipolar disorder 1. He thinks he is being worked up for malu's disease. He has no family history. Medical/Surgical History: Past Medical History: Diagnosis Date Hypertension Tobacco use disorder Past Surgical History: Procedure Laterality Date KNEE REPLACEMENT Bilateral Social History: he reports that he has been smoking cigarettes. He has never used smokeless tobacco. He reports that he does not currently use alcohol. He reports that he does not currently use drugs. Family History: Patient not sure Medications: SCHEDULED: [START ON 07/30/2023] amLODIPine (NORVASC) tablet 5 mg, 5 mg, Daily Diclofenac sodium (VOLTAREN) 1 % gel 2 g, 2 g, 4x daily diphenhydrAMINE (BENADRYL) injection 50 mg, 50 mg, Once [START ON 07/30/2023] donepezil (ARICEPT) tablet 5 mg, 5 mg, Daily [START ON 07/30/2023] Enoxaparin Sodium (LOVENOX) injection 40 mg, 40 mg, Daily [START ON 07/30/2023] Lisinopril (PRINIVIL) tablet 20 mg, 20 mg, Daily [START ON 07/30/2023] Multivitamin w/ minerals (THERAPEUTIC-M) tablet 1 tablet, 1 tablet, Daily Nicotine (NICODERM CQ) 21 MG/24HR patch 1 patch, 1 patch, Q24H And VERIFY LINKED PATCH PLACEMENT, , Q12H [START ON 07/30/2023] Venlafaxine (EFFEXOR-XR) capsule XR 75 mg, 75 mg, Every BKF FLUIDS/DRIPS: PRNs: Acetaminophen, 650 mg, Q6H PRN alum/mag hydrox.-simethicone, 30 mL, Q6H PRN guaiFENesin, 400 mg, Q6H PRN Melatonin, 6 mg, QHS PRN Nicotine, 4 mg, Q2H PRN Ondansetron 4mg/2ml, 4 mg, Q6H PRN Or Ondansetron, 4 mg, Q6H PRN Sodium chloride 0.9%, 250 mL, PRN PRIOR TO ARRIVAL MEDS: None Allergies: Allergies Allergen Reactions Trazodone Anxiety Review of Systems: Review of Systems Constitutional: Positive for activity change and appetite change. Negative for chills, fatigue, fever and unexpected weight change. HENT: Negative for congestion, rhinorrhea and sore throat. Respiratory: Negative for cough and shortness of breath. Cardiovascular: Positive for leg swelling. Negative for chest pain. Gastrointestinal: Negative for abdominal pain, constipation, diarrhea and nausea. Genitourinary: Negative for difficulty urinating. Musculoskeletal: Positive for gait problem and neck pain. Negative for arthralgias. Skin: Negative for rash and wound. Neurological: Positive for weakness. Negative for dizziness, light-headedness and headaches. Hematological: Negative for adenopathy. Psychiatric/Behavioral: Negative for dysphoric mood. The patient is not nervous/anxious. All other systems reviewed and are negative. Physical Exam: Temp: [98.3 F (36.8 C)-98.6 F (37 C)] 98.6 F (37 C) Pulse (Heart Rate): [81-104] 101 Resp Rate: [14-18] 16 BP: (112-120)/(72-74) 112/72 O2 Sat (%): [95 %-97 %] 96 % Weight: [107.3 kg (236 lb 8 oz)] 107.3 kg (236 lb 8 oz) O2 Device: room air (07/29/23 4304) Patient Lines/Drains/Airways Status Active Lines, Drains, Airways, & Wound Overview Name Placement date Placement time Site Days Peripheral IV Line - Single Lumen 07/29/231433 forearm, anterior, left 20 gauge;1 in length 07/29/23 143 -- less than 1 Gen: Alert, Awake, No acute distress Eyes: PERRLA, EOMI, no icterus ENT: MMM, trachea midline, no TTP of bilateral TMJ, no masses, difficulty opening mouth, poor dentition Resp: Clear to auscultation bilaterally, normal respiratory effort Cardio: Tachycardic and Regular rhythm, normal S1, S2, no M/R/G. No FLACO. GI: Soft, Non-tender, Non-distended, Normoactive bowel sounds MSK: No joint effusions or erythema: Skin: No jaundice or rash Neuro: Cranial nerves: CN II: Visual calloway intact to confrontation. 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 No nystagmus. CN V: Facial sensation intact to light touch. CN VII: Mild facial asymmetry of the left cheek with smile and puffing cheeks patient attributes to weakness/tightness of the jaw CN VIII: Hearing is grossly intact. CN IX and X: Soft palate elevates symmetrically in the midline CN XI: Shoulder shrug and sternocleidomastoid strength 5/5 bilaterally CN XII: Tongue is midline with normal movement; no fasciculations Motor: Normal bulk and tone. Sensation: Extremity sensation intact throughout. Strength: 5/5 Strength in bilateral UE. 4/5 strength with bilateral hip flexion. 5/5 Strength with bilateral leg flexion/extension and foot dorsi/planar flexion Psych: Ox3, responding to questions appropriately. Flat affect. Cognition intact Body mass index is 28.04 kg/m . Data Review: ABGs CBC WBC/Hgb/Hct/Plts: 6.39/15.5/47.0/219 (07/28 1436-07/28 1500) Chem 7(PMC) Bun/Creat/Cl/CO2/Glucose: 13/0.74/103/21/91 (07/28 1436-07/28 150) Na/K+/Phos/Mg/Ca: 133/4.0/4.1/2.0/9.4 (07/28 1436-07/28 150) Coags Additional Labs No results found for: BNP Lab Results Component Value Date HSTROP <3 07/29/2023 HSTROP <3 07/21/2023 No results found for: CHOLESTEROL, TRIG, HDL Lab Results Component Value Date ALT 14 07/29/2023 AST 31 07/29/2023 ALKPHOS 63 07/29/2023 BILITOTAL 0.6 07/29/2023 BILIDIRECT 0.1 07/29/2023 Imaging: CT SPINE CERVICAL WITHOUT CONTRAST Final Result IMPRESSION: No fracture or traumatic malalignment in the cervical spine. I personally viewed and interpreted these images and I have reviewed and approved this report. HEAD WITHOUT CONTRAST Final Result IMPRESSION: No acute intracranial findings. I personally viewed and interpreted these images and I have reviewed and approved this report. CHEST 1 VIEW PORTABLE Final Result IMPRESSION: No acute cardiopulmonary disease Associated attestation - Daly Ny MD - 07/31/2023 10:59 PM EDT Attending Addendum (GC): This patient was discussed, examined, and evaluated with the resident physician on the day of the encounter. I have independently confirmed essential components of the medical history and the physical examination. I agree with the above therapeutic plan, with the following addendum: Fransisco Cantor was admitted for jaw stiffness. he did well overnight with the plan outlined by resident This AM, still having significant jaw stiffness. No abnormal posture Hemodynamically stable, Alert and oriented Data Reviewed External Data in Care Everywhere: Reviewed labs, radiology and notes. Previous data in Epic : Reviewed Labs,radiology and notes Current Admission Labs: Independent interpretation performed. Current admission Imaging: Independent interpretation performed. ECG: independent interpretation performed. Discussed care with residents Plan today includes: We will consult psych to help with his psych meds and current symptoms Patient was seen and discussed with bedside RN today. Problem list includes: Principal Problem: Falls Active Problems: Polysubstance use disorder Bipolar 1 disorder Essential hypertension Catatonia Anxiety Daly Ny MD, Agricultural Extension Educator of Clinical Medicine General Internal Medicine [facility] 07-29-2023 History and physical note Internal Medicine Admission History & Physical Patient: Fransisco Cantor, 1975, [id number] Physician: Keegan Jiang MD, Gen Med A service Date of face to face patient encounter: 07/29/2023. Chief Complaint: Weakness, fall, unable to open mouth Impression/Plan: Fransisco Cantor is a 48 y.o. male with a history of an unspecified psychiatric disorder, HTN, and polysubstance use who presents on 07/29/2023 from [facility] with jaw stiffness, weakness, and a fall. Jaw Stiffness: Concern for dystonia vs. Catatonia with addition of new anti-psychotics. It is improving after ativan and fluids. - s/p ativan in the ED - will trial benadryl 50 mg IV. Can dose Q4-6h for ongoing symptoms Starvation Ketosis: Due to being unable to open mouth. UA with ketones - Regular diet - mIVF Fall/Weakness: Patient has been in a wheel chair for the past 3-4 days. Patient attributing to not eating. Currently no back pain. 5-/5 BLUE strength. Intact sensation. Unclear etiology. - CK WNL - CT Head and Neck negative for acute fracture - PT/OT consult - May require neurology consult if not improving Unspecified psychiatry disorder: Patient reports a history of bipolar 1 and schizophrenia. He thinks he is being evaluated for malu's. He has no family history of malu's. Denies SI/HI/Hallucinations - continue effexor - holding risperidone 3mg daily and Ingrezza 40 mg daily - Psych consulted; appreciate recs Neck Pain: - Tylenol PRN HTN: home Lisinopril 20mg daily and amlodipine 5mg daily Tobacco use disorder: Nicotine patch and gum PRN Complexity. Hyponatremia - Secondary to fluid shifts. Monitor. Any conditions listed below are present on admission unless otherwise specified. . Checklist: DVT Prophylaxis: Enoxaprin Dispo: pending evaluation and treatment. Admit to Gen Med A Code Status: Full Code Diet: DIET REGULAR Staffed with Margareth Harrell MD, MPH Signed, Keegan Jiang MD Internal Medicine, PG-3 History Of Present Illness: Fransisco Cantor is a 48 y.o. male with a history of unspecified psychiatric disorder, HTN, and polysubstance use who [facility] [facility] with jaw stiffness, weakness, and a fall. Patient presenting via EMS from [facility] for weakness and a fall. Patient reports for the past 3-4 days he has been unable to open his mouth. Patient has been unable to eat since then. He has also been feeling weak primarily in his legs, which he attributes to not eating, causing him to require a wheel chair. Of note, he fell out of his wheel chair before presenting to the ED when trying to transfer, hitting the side of his jaw and knees. Patient denies fevers, chills, abdominal pain, diarrhea, dysuria, cough, sore throat, shortness of breath, chest pain, back pain, dysphagia, new masses, SI, HI, or hallucinations. In the ED, patient received IV fluids and Ativan with improvement in his symptoms. CT Head and neck negative for fracture. Patient recently seen 07/20 in the [facility] ED for chest pain. At that time, staff from [facility] reports the patient was admitted to their facility on 07/13/2023 after being pink slipped. He has been there voluntarily after family found him in his basement sitting in his own feces demonstrating manic and paranoid behavior after not sleeping for days. He was on lisinopril, Namenda, vitamin-B, Zofran, Risperdal and Effexor. Patient seen again 07/22 at [facility] for potential seizures and recurrently collapsing to the ground. Work up negative at that time. Patient reports a history of schizophrenia and bipolar disorder 1. He thinks he is being worked up for malu's disease. He has no family history. Medical/Surgical History: Past Medical History: Diagnosis Date Hypertension Tobacco use disorder Past Surgical History: Procedure Laterality Date KNEE REPLACEMENT Bilateral Social History: he reports that he has been smoking cigarettes. He has never used smokeless tobacco. He reports that he does not currently use alcohol. He reports that he does not currently use drugs. Family History: Patient not sure Medications: SCHEDULED: [START ON 07/30/2023] amLODIPine (NORVASC) tablet 5 mg, 5 mg, Daily Diclofenac sodium (VOLTAREN) 1 % gel 2 g, 2 g, 4x daily diphenhydrAMINE (BENADRYL) injection 50 mg, 50 mg, Once [START ON 07/30/2023] donepezil (ARICEPT) tablet 5 mg, 5 mg, Daily [START ON 07/30/2023] Enoxaparin Sodium (LOVENOX) injection 40 mg, 40 mg, Daily [START ON 07/30/2023] Lisinopril (PRINIVIL) tablet 20 mg, 20 mg, Daily [START ON 07/30/2023] Multivitamin w/ minerals (THERAPEUTIC-M) tablet 1 tablet, 1 tablet, Daily Nicotine (NICODERM CQ) 21 MG/24HR patch 1 patch, 1 patch, Q24H And VERIFY LINKED PATCH PLACEMENT, , Q12H [START ON 07/30/2023] Venlafaxine (EFFEXOR-XR) capsule XR 75 mg, 75 mg, Every BKF FLUIDS/DRIPS: PRNs: Acetaminophen, 650 mg, Q6H PRN alum/mag hydrox.-simethicone, 30 mL, Q6H PRN guaiFENesin, 400 mg, Q6H PRN Melatonin, 6 mg, QHS PRN Nicotine, 4 mg, Q2H PRN Ondansetron 4mg/2ml, 4 mg, Q6H PRN Or Ondansetron, 4 mg, Q6H PRN Sodium chloride 0.9%, 250 mL, PRN PRIOR TO ARRIVAL MEDS: None Allergies: Allergies Allergen Reactions Trazodone Anxiety Review of Systems: Review of Systems Constitutional: Positive for activity change and appetite change. Negative for chills, fatigue, fever and unexpected weight change. HENT: Negative for congestion, rhinorrhea and sore throat. Respiratory: Negative for cough and shortness of breath. Cardiovascular: Positive for leg swelling. Negative for chest pain. Gastrointestinal: Negative for abdominal pain, constipation, diarrhea and nausea. Genitourinary: Negative for difficulty urinating. Musculoskeletal: Positive for gait problem and neck pain. Negative for arthralgias. Skin: Negative for rash and wound. Neurological: Positive for weakness. Negative for dizziness, light-headedness and headaches. Hematological: Negative for adenopathy. Psychiatric/Behavioral: Negative for dysphoric mood. The patient is not nervous/anxious. All other systems reviewed and are negative. Physical Exam: Temp: [98.3 F (36.8 C)-98.6 F (37 C)] 98.6 F (37 C) Pulse (Heart Rate): [81-104] 101 Resp Rate: [14-18] 16 BP: (112-120)/(72-74) 112/72 O2 Sat (%): [95 %-97 %] 96 % Weight: [107.3 kg (236 lb 8 oz)] 107.3 kg (236 lb 8 oz) O2 Device: room air (07/29/23 1828) Patient Lines/Drains/Airways Status Active Lines, Drains, Airways, & Wound Overview Name Placement date Placement time Site Days Peripheral IV Line - Single Lumen 07/29/23 1434 forearm, anterior, left 20 gauge;1 in length 07/29/23 1434 -- less than 1 Gen: Alert, Awake, No acute distress Eyes: PERRLA, EOMI, no icterus ENT: MMM, trachea midline, no TTP of bilateral TMJ, no masses, difficulty opening mouth, poor dentition Resp: Clear to auscultation bilaterally, normal respiratory effort Cardio: Tachycardic and Regular rhythm, normal S1, S2, no M/R/G. No FLACO. GI: Soft, Non-tender, Non-distended, Normoactive bowel sounds MSK: No joint effusions or erythema: Skin: No jaundice or rash Neuro: Cranial nerves: CN II: Visual calloway intact to confrontation. 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 No nystagmus. CN V: Facial sensation intact to light touch. CN VII: Mild facial asymmetry of the left cheek with smile and puffing cheeks patient attributes to weakness/tightness of the jaw CN VIII: Hearing is grossly intact. CN IX and X: Soft palate elevates symmetrically in the midline CN XI: Shoulder shrug and sternocleidomastoid strength 5/5 bilaterally CN XII: Tongue is midline with normal movement; no fasciculations Motor: Normal bulk and tone. Sensation: Extremity sensation intact throughout. Strength: 5/5 Strength in bilateral UE. 4/5 strength with bilateral hip flexion. 5/5 Strength with bilateral leg flexion/extension and foot dorsi/planar flexion Psych: Ox3, responding to questions appropriately. Flat affect. Cognition intact Body mass index is 28.04 kg/m . Data Review: ABGs CBC WBC/Hgb/Hct/Plts: 6.39/15.5/47.0/219 (07/28 1436-07/28 150) Chem 7(PMC) Bun/Creat/Cl/CO2/Glucose: 13/0.74/103/21/91 (07/28 1436-07/28 1501) Na/K+/Phos/Mg/Ca: 133/4.0/4.1/2.0/9.4 (07/28 1436-07/28 150) Coags Additional Labs No results found for: BNP Lab Results Component Value Date HSTROP <3 07/29/2023 HSTROP <3 07/21/2023 No results found for: CHOLESTEROL, TRIG, HDL Lab Results Component Value Date ALT 14 07/29/2023 AST 31 07/29/2023 ALKPHOS 63 07/29/2023 BILITOTAL 0.6 07/29/2023 BILIDIRECT 0.1 07/29/2023 Imaging: CT SPINE CERVICAL WITHOUT CONTRAST Final Result IMPRESSION: No fracture or traumatic malalignment in the cervical spine. I personally viewed and interpreted these images and I have reviewed and approved this report. HEAD WITHOUT CONTRAST Final Result IMPRESSION: No acute intracranial findings. I personally viewed and interpreted these images and I have reviewed and approved this report. CHEST 1 VIEW PORTABLE Final Result IMPRESSION: No acute cardiopulmonary disease Associated attestation - Daly Ny MD - 07/31/2023 10:59 PM EDT Attending Addendum (GC): This patient was discussed, examined, and evaluated with the resident physician on the day of the encounter. I have independently confirmed essential components of the medical history and the physical examination. I agree with the above therapeutic plan, with the following addendum: Fransisco Cantor was admitted for jaw stiffness. he did well overnight with the plan outlined by resident This AM, still having significant jaw stiffness. No abnormal posture Hemodynamically stable, Alert and oriented Data Reviewed External Data in Care Everywhere: Reviewed labs, radiology and notes. Previous data in Epic : Reviewed Labs,radiology and notes Current Admission Labs: Independent interpretation performed. Current admission Imaging: Independent interpretation performed. ECG: independent interpretation performed. Discussed care with residents Plan today includes: We will consult psych to help with his psych meds and current symptoms Patient was seen and discussed with bedside RN today. Problem list includes: Principal Problem: Falls Active Problems: Polysubstance use disorder Bipolar 1 disorder Essential hypertension Catatonia Anxiety Daly Ny MD, Agricultural [employer] Educator of Clinical Medicine General Internal Medicine documented in this encounter [facility] 07-29-2023 Emergency department Note Pt sitting up in bed and requesting foot. Pt provided sack lunch and juice. [facility] 07-29-2023 Emergency department Note Provided the pt with a phone and requested he call his mother. [facility] 07-29-2023 Physician Emergency department Note dEPARTMENT of Emergency Medicine CHIEF COMPLAINT Fatigue (Pt arrived via EMS from [facility] due to generalized weakness for 1 week requiring the use of a wheelchair. Pt reports neck pain 10/10 due to fall today. Pt reports he has not been able to eat for one week due to not being able to move my mouth. ) HPI Fransisco Cantor is a 48 y.o. male who presents via EMS from [facility] for evaluation of generalized weakness and a fall. Patient reports that he has been in a wheelchair for the past week, because he is too weak to ambulate. Feels like he is weak because he has not been eating. Reports he hasn't eaten because his mouth hurts. Today he tried to transfer to the wheelchair and fell to the ground. Complains of posterior neck pain. Denies any other injury/trauma. Denies HANSON, lightheadedness, CP, SOB, abdominal pain, N/V/D, F/C. REVIEW OF SYSTEMS Review of Systems Constitutional: Positive for appetite change. Negative for chills, fatigue and fever. HENT: Negative for congestion, ear pain, rhinorrhea and sore throat. Respiratory: Negative for cough and shortness of breath. Cardiovascular: Negative for chest pain and palpitations. Gastrointestinal: Negative for abdominal pain, diarrhea, nausea and vomiting. Genitourinary: Negative for dysuria, flank pain, frequency and urgency. Musculoskeletal: Negative for myalgias. Skin: Negative for rash. Neurological: Positive for weakness. Negative for dizziness, light-headedness, numbness and headaches. PAST MEDICAL HISTORY No past medical history on file. SURGICAL HISTORY No past surgical history on file. CURRENT MEDICATIONS No current facility-administered medications for this encounter. No current outpatient medications on file. ALLERGIES Allergies Allergen Reactions Trazodone Anxiety FAMILY HISTORY No family history on file. SOCIAL HISTORY Social History Socioeconomic History Marital status: Single Spouse name: Not on file Number of children: Not on file Years of education: Not on file Highest education level: Not on file Occupational History Not on file Tobacco Use Smoking status: Every Day Current packs/day: 0.50 Types: Cigarettes Smokeless tobacco: Never Substance and Sexual Activity Alcohol use: Not Currently Drug use: Not Currently Sexual activity: Not on file Other Topics Concern Not on file Social History Narrative Not on file Social Determinants of Health Financial Resource Strain: Not on file Food Insecurity: Not on file Transportation Needs: Not on file Physical Activity: Not on file Stress: Not on file Social Connections: Not on file Intimate Partner Violence: Not on file Housing Stability: Patient Unable To Answer (07/05/2023) Received from [employer] [facility] Stability Vital Sign Unable to Pay for Housing in the Last Year: Patient unable to answer Number of Places Lived in the Last Year: Not on file Unstable Housing in the Last Year: Patient unable to answer PHYSICAL EXAM BP 120/74 Pulse 104 Resp 18 Ht 1.956 m (6' 5) SpO2 95% Smoking Status Every Day Physical Exam Vitals and nursing note reviewed. Constitutional: Appearance: He is well-developed. HENT: Head: Normocephalic and atraumatic. Right Ear: External ear normal. Left Ear: External ear normal. Nose: Nose normal. Mouth/Throat: Mouth: Mucous membranes are dry. Comments: Oral mucosa is extremely dry. There are layers of dry skin stuck to his lips Eyes: Conjunctiva/sclera: Conjunctivae normal. Pupils: Pupils are equal, round, and reactive to light. Cardiovascular: Rate and Rhythm: Normal rate and regular rhythm. Heart sounds: Normal heart sounds. No murmur heard. No friction rub. No gallop. Pulmonary: Effort: Pulmonary effort is normal. Breath sounds: Normal breath sounds. Abdominal: General: Bowel sounds are normal. There is no distension. Palpations: Abdomen is soft. There is no mass. Tenderness: There is no abdominal tenderness. There is no guarding or rebound. Hernia: No hernia is present. Musculoskeletal: General: Normal range of motion. Cervical back: Normal range of motion and neck supple. Skin: General: Skin is warm and dry. Neurological: Mental Status: He is lethargic. Motor: Weakness present. Comments: L grasp weaker than R grasp BLE weakness is symmetric but does have good dorsi/plantar flexion Speech is slow Lethargic Psychiatric: Behavior: Behavior normal. Thought Content: Thought content normal. Judgment: Judgment normal. LABS Results for orders placed or performed during the hospital encounter of 07/29/23 SARS-COV-2 RAPID Specimen: Fluid/Swab Result Value Ref Range SARS-COV-2 NOT DETECTED NOT DETECTED [facility] 7 - ED Result Value Ref Range Sodium 136 135 - 145 mmol/L Potassium 5.2 (H) 3.5 - 5.0 mmol/L Chloride 103 98 - 108 mmol/L CO2 21 21 - 31 mmol/L Glucose 91 70 - 99 mg/dL BUN 13 7 - 25 mg/dL Creatinine 0.74 0.70 - 1.30 mg/dL Bun/Crea Ratio 18 Osmolality (Calculated) 287 278 - 305 mOsm/kg Anion Gap 17 7 - 17 mmol/L eGFR, CKD-EPI, Male >90 >=60 mL/min/1.73m2 HEPATIC FUNCTION PANEL Result Value Ref Range Albumin 4.4 3.5 - 5.0 g/dL Bilirubin Direct 0.1 <0.3 mg/dL Bilirubin Total 0.6 <1.5 mg/dL ALP 63 32 - 126 U/L ALT 14 10 - 52 U/L AST 31 10 - 39 U/L Total Protein 7.0 6.4 - 8.3 g/dL HIGH SENSITIVITY TROPONIN I - SINGLE ORDER Result Value Ref Range hs-Troponin I <3 <53 ng/L MAGNESIUM Result Value Ref Range Magnesium 2.0 1.6 - 2.6 mg/dL CALCIUM Result Value Ref Range Calcium 9.4 8.6 - 10.5 mg/dL PHOSPHATE, INORGANIC Result Value Ref Range Phosphorous 4.1 2.2 - 4.6 mg/dL INFLUENZA A/B RAPID MOLECULAR Result Value Ref Range Influenza A, Molecular Not Detected Not Detected Influenza B, Molecular Not Detected Not Detected CBC AND ELECTRONIC DIFF Result Value Ref Range WBC Count 6.39 3.73 - 10.10 K/uL RBC Count 5.20 4.38 - 5.83 M/uL Hemoglobin 15.5 13.4 - 16.8 g/dL Hematocrit 44.9 39.6 - 48.8 % Mean Cell Volume 86.3 79.0 - 94.5 fL Mean Cell Hgb 29.8 26.1 - 33.3 pg Mean Cell Hgb Conc 34.5 31.9 - 36.5 g/dL RBC Distribution 12.2 10.9 - 14.3 % Platelet Count 219 146 - 337 K/uL Mean Platelet Volume 9.5 8.7 - 12.3 fL DIFF STATUS Electronic Differential Segs + Bands Auto 67.7 % Immature Grans % 0.3 % Lymphocyte % Auto 24.6 % Monocyte % Auto 7.4 % Eosinophil % Auto 0.0 % Basophil % Auto 0.0 % Nucleated RBC 0.0 <=0.2 /100 WBC Segs + Bands,Absolute Auto 4.33 1.57 - 6.19 K/uL Immature Grans Absolute <0.04 <=0.07 K/uL Abs Lymph Auto 1.57 0.83 - 3.57 K/uL Abs Terry Auto 0.47 0.24 - 0.93 K/uL Abs Eos Auto <0.04 0.00 - 0.48 K/uL Abs Baso Auto <0.04 0.00 - 0.09 K/uL POC VENOUS BLOOD GAS Result Value Ref Range Specimen Type Venous pH, Venous 7.45 (H) 7.32 - 7.43 pCO2, Venous 35 (L) 36 - 52 mm Hg pO2, Venous 79 mm Hg HCO3, Venous 24 22 - 29 mmol/L sO2 (O2 Saturation), Venous 97 (H) 70 - 80 % Base Excess 0.3 -3.0 - 3.0 mmol/L Glucose, Whole Blood 91 70 - 99 mg/dL Lactate, Whole Blood 1.2 0.5 - 1.6 mmol/L Sodium, Whole Blood 133 (L) 135 - 145 mmol/L Potassium, Whole Blood 4.0 3.5 - 5.0 mmol/L Ionized Calcium, Whole Blood 4.92 4.60 - 5.30 mg/dL Total Hemoglobin 15.6 13.4 - 16.8 g/dL Hematocrit (Calculated) 47.0 40.2 - 50.4 % Oxyhemoglobin 94 94 - 98 % Carboxyhemoglobin 2.2 (H) <=1.5 % Methemoglobin 0.7 <=1.5 % RADIOLOGY CT SPINE CERVICAL WITHOUT CONTRAST Final Result IMPRESSION: No fracture or traumatic malalignment in the cervical spine. I personally viewed and interpreted these images and I have reviewed and approved this report. HEAD WITHOUT CONTRAST Final Result IMPRESSION: No acute intracranial findings. I personally viewed and interpreted these images and I have reviewed and approved this report. CHEST 1 VIEW PORTABLE Final Result IMPRESSION: No acute cardiopulmonary disease EKG done and interpreted by ED physician MEDICATIONS DURING VISIT Medications Sodium chloride 0.9% IV solution 1,000 mL (0 mL Intravenous Stopped 07/29/231623) Sodium chloride 0.9% IV solution 1,000 mL (1,000 mL Intravenous $$New Bag$$ 07/29/23 1623) LORazepam (ATIVAN) injection 1 mg (1 mg Intravenous Given 07/29/23 1650) Sodium chloride 0.9% IV solution 1,000 mL (1,000 mL Intravenous $$New Bag$$ 07/29/23 1650) ED COURSE & MEDICAL DECISION MAKING Fransisco Cantor IS A 48 y.o. male who presented with Chief Complaint Patient presents with Fatigue Pt arrived via EMS from [facility] due to generalized weakness for 1 week requiring the use of a wheelchair. Pt reports neck pain 10/ due to fall today. Pt reports he has not been able to eat for one week due to not being able to move my mouth. Patient was prescribed the following medications for home: New Prescriptions No medications on file Dx: ICD-10-CM 1. Dehydration E86.0 2. Altered mental status, unspecified altered mental status type R41.82 3. Fall, initial encounter W19.XXXA ED Course Prior medical records were reviewed. Patient's past medical history, social history, family history and surgical history was reviewed. All pertinent labs and imaging results were reviewed and interpreted by myself and the attending physician. The patient was updated regarding findings, and was re-assessed during ED stay. Dispo Reasons to return to the ED, potential complications, expected course of the patient's condition, and recommended treatments were discussed with the patient. The patient was also instructed to follow up with their primary care physician and/or any appropriate specialists. The patient expressed understanding and agreement, and will be discharged in good condition. Ivana Rivas MD was included in all aspects of care including assessment, plan, and diagnosis; Ivana Rivas MD was physically present to examine the patient. Medical Decision Making DDx: fall, neck fracture, neck strain, neck contusion, dehydration, electrolyte derangement, KADEN, acute psychosis, polypharmacy, catatonia Patient presented to the emergency department via EMS from [facility] for evaluation of generalized weakness and fall. He is ill-appearing. He is tachycardic. Normotensive. On my exam he is lethargic and answers questions with one-word sentences. Reports that he has been in a wheelchair for the past week and unable to ambulate secondary to generalized weakness. He indicates generalized weakness secondary to decreased p.o. intake from mouth pain. His oral mucosa is extremely dry. He complains of posterior neck pain secondary to fall. There is tenderness to the base of the cervical spine with no step-offs or deformities. His left grasp is weaker than his right grasp. He is unable to hold either leg up off the bed but does have good dorsal plantar flexion bilaterally. EKG done and interpreted by ED physician. CT imaging of head and C-spine are unremarkable. Labs unremarkable. Of note, I did take care this patient on 07/21/2023 after he was sent here from [facility] for evaluation chest pain and left wrist pain. At that time patient was sitting up in bed and conversing without difficulty. Today he seems much more lethargic. Concern for polypharmacy versus catatonia. On 07/21/2023 his medication list included lisinopril, Namenda, vitamin-B, Zofran, Risperdal and Effexor. Review of his medication list today indicates he is still on those medications, but he has also been placed on Invega, Haldol, Zyprexa and Aricept. Will trial a dose of ativan, but regardless of reaction will require admission for further management and psych consultation (medication review/management). ADDENDUM: After Ativan given, patient more alert. He is sitting up in bed. He used the urinal and is not eating a sandwich. He stated that he remembers me from his las visit. Suspect catatonia as symptoms would not improve with Ativan if this was polypharmacy. Amount and/or Complexity of Data Reviewed Labs: ordered. Radiology: ordered. Risk Prescription drug management. Decision regarding hospitalization. LABS Results for orders placed or performed during the hospital encounter of 07/29/23 SARS-COV-2 RAPID Specimen: Fluid/Swab Result Value Ref Range SARS-COV-2 NOT DETECTED NOT DETECTED [facility] 7 - ED Result Value Ref Range Sodium 136 135 - 145 mmol/L Potassium 5.2 (H) 3.5 - 5.0 mmol/L Chloride 103 98 - 108 mmol/L CO2 21 21 - 31 mmol/L Glucose 91 70 - 99 mg/dL BUN 13 7 - 25 mg/dL Creatinine 0.74 0.70 - 1.30 mg/dL Bun/Crea Ratio 18 Osmolality (Calculated) 287 278 - 305 mOsm/kg Anion Gap 17 7 - 17 mmol/L eGFR, CKD-EPI, Male >90 >=60 mL/min/1.73m2 HEPATIC FUNCTION PANEL Result Value Ref Range Albumin 4.4 3.5 - 5.0 g/dL Bilirubin Direct 0.1 <0.3 mg/dL Bilirubin Total 0.6 <1.5 mg/dL ALP 63 32 - 126 U/L ALT 14 10 - 52 U/L AST 31 10 - 39 U/L Total Protein 7.0 6.4 - 8.3 g/dL HIGH SENSITIVITY TROPONIN I - SINGLE ORDER Result Value Ref Range hs-Troponin I <3 <53 ng/L MAGNESIUM Result Value Ref Range Magnesium 2.0 1.6 - 2.6 mg/dL CALCIUM Result Value Ref Range Calcium 9.4 8.6 - 10.5 mg/dL PHOSPHATE, INORGANIC Result Value Ref Range Phosphorous 4.1 2.2 - 4.6 mg/dL INFLUENZA A/B RAPID MOLECULAR Result Value Ref Range Influenza A, Molecular Not Detected Not Detected Influenza B, Molecular Not Detected Not Detected CBC AND ELECTRONIC DIFF Result Value Ref Range WBC Count 6.39 3.73 - 10.10 K/uL RBC Count 5.20 4.38 - 5.83 M/uL Hemoglobin 15.5 13.4 - 16.8 g/dL Hematocrit 44.9 39.6 - 48.8 % Mean Cell Volume 86.3 79.0 - 94.5 fL Mean Cell Hgb 29.8 26.1 - 33.3 pg Mean Cell Hgb Conc 34.5 31.9 - 36.5 g/dL RBC Distribution 12.2 10.9 - 14.3 % Platelet Count 219 146 - 337 K/uL Mean Platelet Volume 9.5 8.7 - 12.3 fL DIFF STATUS Electronic Differential Segs + Bands Auto 67.7 % Immature Grans % 0.3 % Lymphocyte % Auto 24.6 % Monocyte % Auto 7.4 % Eosinophil % Auto 0.0 % Basophil % Auto 0.0 % Nucleated RBC 0.0 <=0.2 /100 WBC Segs + Bands,Absolute Auto 4.33 1.57 - 6.19 K/uL Immature Grans Absolute <0.04 <=0.07 K/uL Abs Lymph Auto 1.57 0.83 - 3.57 K/uL Abs Terry Auto 0.47 0.24 - 0.93 K/uL Abs Eos Auto <0.04 0.00 - 0.48 K/uL Abs Baso Auto <0.04 0.00 - 0.09 K/uL POC VENOUS BLOOD GAS Result Value Ref Range Specimen Type Venous pH, Venous 7.45 (H) 7.32 - 7.43 pCO2, Venous 35 (L) 36 - 52 mm Hg pO2, Venous 79 mm Hg HCO3, Venous 24 22 - 29 mmol/L sO2 (O2 Saturation), Venous 97 (H) 70 - 80 % Base Excess 0.3 -3.0 - 3.0 mmol/L Glucose, Whole Blood 91 70 - 99 mg/dL Lactate, Whole Blood 1.2 0.5 - 1.6 mmol/L Sodium, Whole Blood 133 (L) 135 - 145 mmol/L Potassium, Whole Blood 4.0 3.5 - 5.0 mmol/L Ionized Calcium, Whole Blood 4.92 4.60 - 5.30 mg/dL Total Hemoglobin 15.6 13.4 - 16.8 g/dL Hematocrit (Calculated) 47.0 40.2 - 50.4 % Oxyhemoglobin 94 94 - 98 % Carboxyhemoglobin 2.2 (H) <=1.5 % Methemoglobin 0.7 <=1.5 % RADIOLOGY CT SPINE CERVICAL WITHOUT CONTRAST Final Result IMPRESSION: No fracture or traumatic malalignment in the cervical spine. I personally viewed and interpreted these images and I have reviewed and approved this report. HEAD WITHOUT CONTRAST Final Result IMPRESSION: No acute intracranial findings. I personally viewed and interpreted these images and I have reviewed and approved this report. CHEST 1 VIEW PORTABLE Final Result IMPRESSION: No acute cardiopulmonary disease EKG done and interpreted by ED physician MEDICATIONS DURING VISIT Medications Sodium chloride 0.9% IV solution 1,000 mL (0 mL Intravenous Stopped 07/29/23 1624) Sodium chloride 0.9% IV solution 1,000 mL (1,000 mL Intravenous $$New Bag$$ 07/29/23 1623) LORazepam (ATIVAN) injection 1 mg (1 mg Intravenous Given 07/29/23 1650) Sodium chloride 0.9% IV solution 1,000 mL (1,000 mL Intravenous $$New Bag$$ 07/29/23 1650) ED COURSE & MEDICAL DECISION MAKING Fransisco Cantor IS A 48 y.o. male who presented with Chief Complaint Patient presents with Fatigue Pt arrived via EMS from [facility] due to generalized weakness for 1 week requiring the use of a wheelchair. Pt reports neck pain 10/10 due to fall today. Pt reports he has not been able to eat for one week due to not being able to move my mouth. Patient was prescribed the following medications for home: New Prescriptions No medications on file Dx: ICD-10-CM 1. Dehydration E86.0 2. Altered mental status, unspecified altered mental status type R41.82 3. Fall, initial encounter W19.XXXA ED Course Prior medical records were reviewed. Patient's past medical history, social history, family history and surgical history was reviewed. All pertinent labs and imaging results were reviewed and interpreted by myself and the attending physician. The patient was updated regarding findings, and was re-assessed during ED stay. Dispo Admit Ivana Rivas MD was included in all aspects of care including assessment, plan, and diagnosis; Ivana Rivas MD was physically present to examine the patient. NANETTE Patricio 07/29/23 5523 NANETTE Patricio 07/29/23 5141 [facility] Work Phone: 07-29-2023 Physician Emergency department Note Images from the original note were not included. HISTORY Fransisco Cantor is a 48 y.o. male who presents from [facility]. He has a past history of polysubstance use and unspecified psychiatric issues. The patient reportedly was admitted to their facility on July 12 after having been paranoid, in coherent, and sitting in his own feces in his basement. He was seen in this facility on July 20 for chest pain. At that visit he was noted to be alert, oriented, and participated in the history and physical. He was ambulatory at that time. Today, fadi chinchilla says that he has had progressively work sitting weakness for 1 week requiring the use of a wheelchair. They did not mention any trauma. After arriving here, the patient states that he fell out of his wheelchair today. He also states that he has not been eating and drinking anything for 1 week because of trouble moving his mouth and swallowing. PERTINENT EXAM The patient is ill-appearing. His oral mucosa is extremely dry. His lips are cracked and bleeding. He is slow to answer questions and speaks in a very soft voice. He does not have a lot of spontaneous lying in the bed. No external signs of head trauma. No step-off or deformity but he complains of tenderness in the cervical spine. Benign chest and abdomen. Seems able to move all extremities in the bed but will not hold any extremities off the bed against gravity when asked. He has no clonus IMPRESSION AND PLAN CT SPINE CERVICAL WITHOUT CONTRAST Final Result IMPRESSION: No fracture or traumatic malalignment in the cervical spine. I personally viewed and interpreted these images and I have reviewed and approved this report. HEAD WITHOUT CONTRAST Final Result IMPRESSION: No acute intracranial findings. I personally viewed and interpreted these images and I have reviewed and approved this report. CHEST 1 VIEW PORTABLE Final Result IMPRESSION: No acute cardiopulmonary disease Results for orders placed or performed during the hospital encounter of 07/29/23 SARS-COV-2 RAPID Specimen: Fluid/Swab Result Value Ref Range SARS-COV-2 NOT DETECTED NOT DETECTED [facility] 7 - ED Result Value Ref Range Sodium 136 135 - 145 mmol/L Potassium 5.2 (H) 3.5 - 5.0 mmol/L Chloride 103 98 - 108 mmol/L CO2 21 21 - 31 mmol/L Glucose 91 70 - 99 mg/dL BUN 13 7 - 25 mg/dL Creatinine 0.74 0.70 - 1.30 mg/dL Bun/Crea Ratio 18 Osmolality (Calculated) 287 278 - 305 mOsm/kg Anion Gap 17 7 - 17 mmol/L eGFR, CKD-EPI, Male >90 >=60 mL/min/1.73m2 HEPATIC FUNCTION PANEL Result Value Ref Range Albumin 4.4 3.5 - 5.0 g/dL Bilirubin Direct 0.1 <0.3 mg/dL Bilirubin Total 0.6 <1.5 mg/dL ALP 63 32 - 126 U/L ALT 14 10 - 52 U/L AST 31 10 - 39 U/L Total Protein 7.0 6.4 - 8.3 g/dL HIGH SENSITIVITY TROPONIN I - SINGLE ORDER Result Value Ref Range hs-Troponin I <3 <53 ng/L MAGNESIUM Result Value Ref Range Magnesium 2.0 1.6 - 2.6 mg/dL CALCIUM Result Value Ref Range Calcium 9.4 8.6 - 10.5 mg/dL PHOSPHATE, INORGANIC Result Value Ref Range Phosphorous 4.1 2.2 - 4.6 mg/dL INFLUENZA A/B RAPID MOLECULAR Result Value Ref Range Influenza A, Molecular Not Detected Not Detected Influenza B, Molecular Not Detected Not Detected CBC AND ELECTRONIC DIFF Result Value Ref Range WBC Count 6.39 3.73 - 10.10 K/uL RBC Count 5.20 4.38 - 5.83 M/uL Hemoglobin 15.5 13.4 - 16.8 g/dL Hematocrit 44.9 39.6 - 48.8 % Mean Cell Volume 86.3 79.0 - 94.5 fL Mean Cell Hgb 29.8 26.1 - 33.3 pg Mean Cell Hgb Conc 34.5 31.9 - 36.5 g/dL RBC Distribution 12.2 10.9 - 14.3 % Platelet Count 219 146 - 337 K/uL Mean Platelet Volume 9.5 8.7 - 12.3 fL DIFF STATUS Electronic Differential Segs + Bands Auto 67.7 % Immature Grans % 0.3 % Lymphocyte % Auto 24.6 % Monocyte % Auto 7.4 % Eosinophil % Auto 0.0 % Basophil % Auto 0.0 % Nucleated RBC 0.0 <=0.2 /100 WBC Segs + Bands,Absolute Auto 4.33 1.57 - 6.19 K/uL Immature Grans Absolute <0.04 <=0.07 K/uL Abs Lymph Auto 1.57 0.83 - 3.57 K/uL Abs Terry Auto 0.47 0.24 - 0.93 K/uL Abs Eos Auto <0.04 0.00 - 0.48 K/uL Abs Baso Auto <0.04 0.00 - 0.09 K/uL POC VENOUS BLOOD GAS Result Value Ref Range Specimen Type Venous pH, Venous 7.45 (H) 7.32 - 7.43 pCO2, Venous 35 (L) 36 - 52 mm Hg pO2, Venous 79 mm Hg HCO3, Venous 24 22 - 29 mmol/L sO2 (O2 Saturation), Venous 97 (H) 70 - 80 % Base Excess 0.3 -3.0 - 3.0 mmol/L Glucose, Whole Blood 91 70 - 99 mg/dL Lactate, Whole Blood 1.2 0.5 - 1.6 mmol/L Sodium, Whole Blood 133 (L) 135 - 145 mmol/L Potassium, Whole Blood 4.0 3.5 - 5.0 mmol/L Ionized Calcium, Whole Blood 4.92 4.60 - 5.30 mg/dL Total Hemoglobin 15.6 13.4 - 16.8 g/dL Hematocrit (Calculated) 47.0 40.2 - 50.4 % Oxyhemoglobin 94 94 - 98 % Carboxyhemoglobin 2.2 (H) <=1.5 % Methemoglobin 0.7 <=1.5 % It is unclear to me what is causing this patient's altered mental status. He is on quite a bit of medications ever [facility]. It certainly is possible that this is all secondary to over medication. He has questionable muscular rigidity but no inducible, tremor, or abnormal eye movements. This is not classic for serotonin syndrome. A CK is pending. He also could be catatonic. We will try all a dose of IV Ativan. He certainly looks dehydrated. He is receiving a 2 L of saline here. The patient will be admitted for further medical evaluation. Psychiatric consultation can be considered inpatient. Medical Decision Making Problems Addressed: Altered mental status, unspecified altered mental status type: acute illness or injury that poses a threat to life or bodily functions Dehydration: acute illness or injury Fall, initial encounter: acute illness or injury Amount and/or Complexity of Data Reviewed Independent Historian: caregiver and EMS Details: [facility] Labs: ordered. Decision-making details documented in ED Course. Radiology: ordered. Decision-making details documented in ED Course. Risk Prescription drug management. Decision regarding hospitalization. Diagnosis or treatment significantly limited by social determinants of health. On 07/29/2023, I saw and evaluated the patient with SALLY. I provided a substantive portion of the care for this patient. I personally performed all aspects of the medical decision making for this encounter. I have reviewed and verified this with the SALLY so that it accurately reflects our care Ivana Rivas M.D., [facility] Conservation Planner Clinical Professor Of Emergency Medicine Ivana Rivas MD 07/29/23 8580 The patient does seem much better after 2 L of IV fluids and a mg of Ativan. Again, there may be a component of catatonia here that we fixed with the Ativan. But he looks extremely dry and I am not comfortable discharging him back to [facility]. He will be admitted medically here and [facility] psychiatry can consult on him routinely tomorrow Ivana Rivas MD 07/29/23 1710 [facility] 07-29-2023 Note Acute Coronary Syndr ome (ACS): Initial Evaluation and Management: [email or web address] [facility] 07-29-2023 Emergency department Note Pt identified as a Fall risk. ED fall bundle kit implemented and visual fall communication tool reviewed with patient. Fall prevention sign displayed. Call light within reach. Patient verbalized understanding of fall risk yes Pt/ family understands not get out of bed without assistance yes Instructed to call for help to get of bed. yes Additional comments yes Pt advised that if he needs to get out of bed to use the call light and we will assist him out of bed, pt verbalized understanding. Call light within pt reach [facility] 07-29-2023 Emergency department Note Report from Fadi Chinchilla. Admission on 07/18/23 for aggression. Patient started to decline on Sunday, July 22. Muscle weakness, slurred speech. In and out of orientation. Patient only taking a couple bites of food during meals. [facility] 07-29-2023 Emergency department Note Bed: [facility] Expected date: Expected time: Means of arrival: Comments: Fadi chinchilla [facility] 07-21-2023 Emergency department Note Clothing provided to Patient at this time per RN request. Shirt size XL and pants size 2XL. Mack Gutierrez MSW, GREEN HOUSE MANAGER Construction Equipment Mechanic Helper Emergency Department *can be reached on secure chat* [phone] [facility] 07-21-2023 Emergency department Note Clothing provided to Patient at this time per RN request. Shirt size XL and pants size 2XL. PANCHITO Blanca, GREEN HOUSE MANAGER Construction Equipment Mechanic Helper Emergency Department *can be reached on secure chat* [phone] Pt said he was going to try to take a nap Pt wanted to walk to and from restroom Pt asked for cookies and pt is also talking on phone with his mom dEPARTMENT of Emergency Medicine CHIEF COMPLAINT Chest Pain (From [facility] with chest pain, given 1 nitroglycerin tab and 4 baby aspirin with questionable relief of chest pain. Had gone out to smoke and developed sharp chest pain that traveled up right arm. Brought in by medic 815. At [facility] for confusion./) DONALD Cantor is a 48 y.o. male who presents via EMS from [facility] for evaluation of chest pain. Patient was outside smoking when he developed left substernal chest pain. Staff at [facility] administered 1 sublingual nitro and 324 mg of baby aspirin. He believes this relieved his pain. Patient is a very poor historian. He is uncertain why he is at [facility]. He denies any significant past medical history. His only current complaint is of left chest pain that he started after being detained by the police earlier this week. I called and spoke to the staff at [facility] ([facility]). She stated the patient was admitted to their facility on 07/13/2023. He was originally pink slipped that yesterday he is currently there voluntarily. Prior to his admission the patient's family had found him sitting in his feces in the basement and coherent, manic and paranoid. They report he had been awake for several days. He was seen at outside hospital and ultimately admitted to [facility]. He is currently on lisinopril, Namenda, vitamin-B, Zofran, Risperdal and Effexor. REVIEW OF SYSTEMS Review of Systems Constitutional: Negative for chills, fatigue and fever. HENT: Negative for congestion, rhinorrhea and sore throat. Respiratory: Negative for cough and shortness of breath. Cardiovascular: Positive for chest pain. Negative for palpitations and leg swelling. Gastrointestinal: Negative for abdominal pain, diarrhea, nausea and vomiting. Genitourinary: Negative for dysuria, flank pain, frequency, hematuria and urgency. Musculoskeletal: Positive for arthralgias. Negative for myalgias. Skin: Negative for rash. Neurological: Negative for dizziness, light-headedness and headaches. PAST MEDICAL HISTORY No past medical history on file. SURGICAL HISTORY No past surgical history on file. CURRENT MEDICATIONS Current Facility-Administered Medications Medication Dose Route Frequency Provider Last Rate Last Admin Acetaminophen (TYLENOL) tablet 650 mg 650 mg Oral Q6H PRN Justen Mehta MD Ibuprofen (MOTRIN) tablet 600 mg 600 mg Oral Q6H PRN Justen Mehta MD Nicotine (NICORETTE) gum 4 mg 4 mg Oral As directed PRN Justen Mehta MD risperiDONE (risperDAL M-TABS) disintegrating tablet 2 mg 2 mg Oral Q4H PRN Justen Mehta MD Or Ziprasidone (GEODON) injection 20 mg 20 mg Intramuscular Q4H PRN Justen Mehta MD No current outpatient medications on file. ALLERGIES Allergies Allergen Reactions Trazodone Anxiety FAMILY HISTORY No family history on file. SOCIAL HISTORY Social History Socioeconomic History Marital status: Single Spouse name: Not on file Number of children: Not on file Years of education: Not on file Highest education level: Not on file Occupational History Not on file Tobacco Use Smoking status: Not on file Smokeless tobacco: Not on file Substance and Sexual Activity Alcohol use: Not on file Drug use: Not on file Sexual activity: Not on file Other Topics Concern Not on file Social History Narrative Not on file Social Determinants of Health Financial Resource Strain: Not on file Food Insecurity: Not on file Transportation Needs: Not on file Physical Activity: Not on file Stress: Not on file Social Connections: Not on file Intimate Partner Violence: Not on file Housing Stability: Patient Unable To Answer (07/05/2023) Received from [facility] Housing Stability Vital Sign Unable to Pay for Housing in the Last Year: Patient unable to answer Number of Places Lived in the Last Year: Not on file Unstable Housing in the Last Year: Patient unable to answer PHYSICAL EXAM BP 146/86 Pulse 85 Temp 98.2 F (36.8 C) Resp 16 Ht 1.956 m (6' 5) SpO2 100% Physical Exam Vitals and nursing note reviewed. Constitutional: Appearance: He is well-developed. HENT: Head: Normocephalic and atraumatic. Right Ear: External ear normal. Left Ear: External ear normal. Nose: Nose normal. Eyes: Conjunctiva/sclera: Conjunctivae normal. Pupils: Pupils are equal, round, and reactive to light. Cardiovascular: Rate and Rhythm: Normal rate and regular rhythm. Heart sounds: Normal heart sounds. No murmur heard. No friction rub. No gallop. Pulmonary: Effort: Pulmonary effort is normal. Breath sounds: Normal breath sounds. Abdominal: General: Bowel sounds are normal. There is no distension. Palpations: Abdomen is soft. There is no mass. Tenderness: There is no abdominal tenderness. There is no guarding or rebound. Hernia: No hernia is present. Musculoskeletal: General: Normal range of motion. Cervical back: Normal range of motion and neck supple. Skin: General: Skin is warm and dry. Neurological: Mental Status: He is alert and oriented to person, place, and time. Cranial Nerves: No cranial nerve deficit. Medical Decision Making DDx: ACS, atypical chest pain, GERD, gastritis, PNA Patient is well-appearing, afebrile and nontoxic. Vital signs are stable. His lungs are clear auscultation bilaterally, not dyspneic. EKG done interpreted by ED physician. Chest x-ray demonstrated no acute findings. Labs unremarkable. HS troponin and delta troponin are negative. He is low risk heart score. An x-ray of his left wrist was also obtained given his complaints of possible traumatic injury. X-ray demonstrated no acute findings. Discussed results and plan of care with patient. He is stable for discharge back to [facility]. Amount and/or Complexity of Data Reviewed Labs: ordered. Radiology: ordered. ECG/medicine tests: ordered. Risk OTC drugs. Prescription drug management. LABS Results for orders placed or performed during the hospital encounter of 07/21/23 [facility] 7 - ED Result Value Ref Range Sodium 139 135 - 145 mmol/L Potassium 3.7 3.5 - 5.0 mmol/L Chloride 106 98 - 108 mmol/L CO2 25 21 - 31 mmol/L Glucose 103 (H) 70 - 99 mg/dL BUN 17 7 - 25 mg/dL Creatinine 0.73 0.70 - 1.30 mg/dL Bun/Crea Ratio 23 Osmolality (Calculated) 292 278 - 305 mOsm/kg Anion Gap 12 7 - 17 mmol/L eGFR, CKD-EPI, Male >90 >=60 mL/min/1.73m2 MAGNESIUM Result Value Ref Range Magnesium 1.9 1.6 - 2.6 mg/dL CBC AND ELECTRONIC DIFF Result Value Ref Range WBC Count 6.03 3.73 - 10.10 K/uL RBC Count 4.41 4.38 - 5.83 M/uL Hemoglobin 13.0 (L) 13.4 - 16.8 g/dL Hematocrit 38.5 (L) 39.6 - 48.8 % Mean Cell Volume 87.3 79.0 - 94.5 fL Mean Cell Hgb 29.5 26.1 - 33.3 pg Mean Cell Hgb Conc 33.8 31.9 - 36.5 g/dL RBC Distribution 12.4 10.9 - 14.3 % Platelet Count 208 146 - 337 K/uL Mean Platelet Volume 9.5 8.7 - 12.3 fL DIFF STATUS Electronic Differential Segs + Bands Auto 54.9 % Immature Grans % 0.3 % Lymphocyte % Auto 37.1 % Monocyte % Auto 7.5 % Eosinophil % Auto 0.2 % Basophil % Auto 0.0 % Nucleated RBC 0.0 <=0.2 /100 WBC Segs + Bands,Absolute Auto 3.31 1.57 - 6.19 K/uL Immature Grans Absolute <0.04 <=0.07 K/uL Abs Lymph Auto 2.24 0.83 - 3.57 K/uL Abs Terry Auto 0.45 0.24 - 0.93 K/uL Abs Eos Auto <0.04 0.00 - 0.48 K/uL Abs Baso Auto <0.04 0.00 - 0.09 K/uL TROPONIN I INITIAL Result Value Ref Range hs-Troponin I <3 <53 ng/L TROPONIN 1 HOUR Result Value Ref Range 1 Hour hs-Troponin <3 <53 ng/L RADIOLOGY XR WRIST LEFT 3+ VIEWS Final Result IMPRESSION: 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 No acute abnormality. CHEST 1 VIEW PORTABLE Final Result IMPRESSION: No acute cardiopulmonary disease EKG done and interpreted by ED physician MEDICATIONS DURING VISIT Medications Nicotine (NICORETTE) gum 4 mg (has no administration in time range) Acetaminophen (TYLENOL) tablet 650 mg (has no administration in time range) Ibuprofen (MOTRIN) tablet 600 mg (has no administration in time range) risperiDONE (risperDAL M-TABS) disintegrating tablet 2 mg (has no administration in time range) Or Ziprasidone (GEODON) injection 20 mg (has no administration in time range) ED COURSE & MEDICAL DECISION MAKING Fransisco Cantor IS A 48 y.o. male who presented with Chief Complaint Patient presents with Chest Pain From [facility] with chest pain, given 1 nitroglycerin tab and 4 baby aspirin with questionable relief of chest pain. Had gone out to smoke and developed sharp chest pain that traveled up right arm. Brought in by medic 815. At [facility] for confusion. Patient was prescribed the following medications for home: New Prescriptions No medications on file Dx: ICD-10-CM 1. Chest pain, unspecified type R07.9 2. Left wrist pain M25.532 ED Course Prior medical records were reviewed. Patient's past medical history, social history, family history and surgical history was reviewed. All pertinent labs and imaging results were reviewed and interpreted by myself and the attending physician. The patient was updated regarding findings, and was re-assessed during ED stay. Dispo Reasons to return to the ED, potential complications, expected course of the patient's condition, and recommended treatments were discussed with the patient. The patient was also instructed to follow up with their primary care physician and/or any appropriate specialists. The patient expressed understanding and agreement, and will be discharged in good condition. aDnna Owens DO was included in all aspects of care including assessment, plan, and diagnosis; Danna Owens DO was physically present to examine the patient. NANETTE Patricio 07/21/232044 ED STAFFING NOTE CHIEF COMPLAINT Chest Pain (From [facility] with chest pain, given 1 nitroglycerin tab and 4 baby aspirin with questionable relief of chest pain. Had gone out to smoke and developed sharp chest pain that traveled up right arm. Brought in by medic 815. 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 Sent from [facility], [place] and paranoid behavioral. He developed left sided sharp chest pain, non radiating. Not exertional. Currently he is just having left wrist pain. Denies fever, nausea, vomiting, diarrhea, abd pain, fever, cough, congestion, leg pain/swelling, shortness of breath, prior CAD/DVT/PE. No past medical history on file. No past surgical history on file. Review of systems including constitutional, skin, HEENT, eyes, CV, respiratory, GI, , MSK, endocrine, neurologic, psychiatric reviewed and negative except as noted above. PHYSICAL EXAM VITAL SIGNS: BP 142/79 Pulse 97 Temp 98.2 F (36.8 C) Resp 20 Ht 1.956 m (6' 5) SpO2 97% Constitutional: No acute distress. Non-toxic appearance. HENT: Atraumatic. Normocephalic. Phonation normal. Neck: Normal range of motion. Supple. Eyes: Conjunctiva normal. No discharge. PERRL Respiratory: No respiratory distress. No rales. No ronchi. No wheezes. No stridor. Normal air movement. Patient able to talk in full sentences. Cardiovascular: Regular rate and rhythm. No murmurs. No gallops. No rubs. GI: Non distended. Nontender. No rebound. No guarding. No masses. Musculoskeletal: Intact distal pulses. No edema. Integument: No erythema. No rash. No diaphoresis. No cyanosis. Neurologic: Alert & oriented x 3. Cranial nerves grossly intact. Psychiatric: Mood and affect are normal. Wrist without TTP. No erythema. Full ROM. ED COURSE & MEDICAL DECISION MAKING On 07/21/2023 I saw and examined the patient. I discussed the history and examination with the advanced practice provider and agree with the plan of care. Hemodynamically stable, afebrile. Exam overall benign and reassuring. Consider GERD, costochondritis, pleurisy. Low concern for PNA, ACS, PE. Low heart score. CXR on my review without acute large opacities. In terms of the wrist, consider arthritis, muscle strain. Doubt infectious etiology. Labs reassuring. If work-up reassuring, anticipate discharge back to [facility]. 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 No acute abnormality. CHEST 1 VIEW PORTABLE Final Result IMPRESSION: No acute cardiopulmonary disease Differential includes life-threatening causes as above. Medical Decision Making Amount and/or Complexity of Data Reviewed External Data Reviewed: radiology and notes. Labs: ordered. Decision-making details documented in ED Course. Radiology: ordered and independent interpretation performed. Decision-making details documented in ED Course. ECG/medicine tests: ordered and independent interpretation performed. Decision-making details documented in ED Course. Risk Decision regarding hospitalization. Medication list reviewed. I have personally seen and examined this patient. I have fully participated in the care of this patient. I have reviewed all pertinent clinical information, including history, physical exam and plan with the advanced practice provider. Prior medical records were reviewed. All pertinent labs and imaging results were reviewed and interpreted by me. The patient was updated regarding findings, and was re-assessed during ED stay. Justen Mehta MD 07/21/23 1546 Bed: EE16 Expected date: Expected time: Means of arrival: Comments: M815 documented in this encounter [facility] 07-21-2023 Emergency department Note Pt said he was going to try to take a nap [facility] 07-21-2023 Emergency department Note Pt wanted to walk to and from restroom [facility] 07-21-2023 Hospital Discharge instructions Elyssa High APRN-PACK OUT OPERATOR - 07/21/2023 5:40 PM EDT Results for orders placed or performed during the hospital encounter of 07/21/23 [facility] 7 - ED Result Value Ref Range Sodium 139 135 - 145 mmol/L Potassium 3.7 3.5 - 5.0 mmol/L Chloride 106 98 - 108 mmol/L CO2 25 21 - 31 mmol/L Glucose 103 (H) 70 - 99 mg/dL BUN 17 7 - 25 mg/dL Creatinine 0.73 0.70 - 1.30 mg/dL Bun/Crea Ratio 23 Osmolality (Calculated) 292 278 - 305 mOsm/kg Anion Gap 12 7 - 17 mmol/L eGFR, CKD-EPI, Male >90 >=60 mL/min/1.73m2 MAGNESIUM Result Value Ref Range Magnesium 1.9 1.6 - 2.6 mg/dL CBC AND ELECTRONIC DIFF Result Value Ref Range WBC Count 6.03 3.73 - 10.10 K/uL RBC Count 4.41 4.38 - 5.83 M/uL Hemoglobin 13.0 (L) 13.4 - 16.8 g/dL Hematocrit 38.5 (L) 39.6 - 48.8 % Mean Cell Volume 87.3 79.0 - 94.5 fL Mean Cell Hgb 29.5 26.1 - 33.3 pg Mean Cell Hgb Conc 33.8 31.9 - 36.5 g/dL RBC Distribution 12.4 10.9 - 14.3 % Platelet Count 208 146 - 337 K/uL Mean Platelet Volume 9.5 8.7 - 12.3 fL DIFF STATUS Electronic Differential Segs + Bands Auto 54.9 % Immature Grans % 0.3 % Lymphocyte % Auto 37.1 % Monocyte % Auto 7.5 % Eosinophil % Auto 0.2 % Basophil % Auto 0.0 % Nucleated RBC 0.0 <=0.2 /100 WBC Segs + Bands,Absolute Auto 3.31 1.57 - 6.19 K/uL Immature Grans Absolute <0.04 <=0.07 K/uL Abs Lymph Auto 2.24 0.83 - 3.57 K/uL Abs Terry Auto 0.45 0.24 - 0.93 K/uL Abs Eos Auto <0.04 0.00 - 0.48 K/uL Abs Baso Auto <0.04 0.00 - 0.09 K/uL TROPONIN I INITIAL Result Value Ref Range hs-Troponin I <3 <53 ng/L TROPONIN 1 HOUR Result Value Ref Range 1 Hour hs-Troponin <3 <53 ng/L XR WRIST LEFT 3+ VIEWS Final Result IMPRESSION: 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 No acute abnormality. CHEST 1 VIEW PORTABLE Final Result IMPRESSION: No acute cardiopulmonary disease The following attachments cannot be sent through Care Everywhere.Chest Pain (Cymraes)Arthritis ([place]ymraes)documented in this encounter [facility] 07-21-2023 Emergency department Note Pt asked for cookies and pt is also talking on phone with his mom [facility] 07-21-2023 Note Acute Coronary Syndr ome (ACS): Initial Evaluation and Management: [email or web address] [facility] 07-21-2023 Physician Emergency department Note dEPARTMENT of Emergency Medicine CHIEF COMPLAINT Chest Pain (From [facility] with chest pain, given 1 nitroglycerin tab and 4 baby aspirin with questionable relief of chest pain. Had gone out to smoke and developed sharp chest pain that traveled up right arm. Brought in by medic 815. At [facility] for confusion./) DONALD Cantro is a 48 y.o. male who presents via EMS from [facility] for evaluation of chest pain. Patient was outside smoking when he developed left substernal chest pain. Staff at [facility] administered 1 sublingual nitro and 324 mg of baby aspirin. He believes this relieved his pain. Patient is a very poor historian. He is uncertain why he is at [facility]. He denies any significant past medical history. His only current complaint is of left chest pain that he started after being detained by the police earlier this week. I called and spoke to the staff at [facility] ([facility]). She stated the patient was admitted to their facility on 07/13/2023. He was originally pink slipped that yesterday he is currently there voluntarily. Prior to his admission the patient's family had found him sitting in his feces in the basement and coherent, manic and paranoid. They report he had been awake for several days. He was seen at outside hospital and ultimately admitted to [facility]. He is currently on lisinopril, Namenda, vitamin-B, Zofran, Risperdal and Effexor. REVIEW OF SYSTEMS Review of Systems Constitutional: Negative for chills, fatigue and fever. HENT: Negative for congestion, rhinorrhea and sore throat. Respiratory: Negative for cough and shortness of breath. Cardiovascular: Positive for chest pain. Negative for palpitations and leg swelling. Gastrointestinal: Negative for abdominal pain, diarrhea, nausea and vomiting. Genitourinary: Negative for dysuria, flank pain, frequency, hematuria and urgency. Musculoskeletal: Positive for arthralgias. Negative for myalgias. Skin: Negative for rash. Neurological: Negative for dizziness, light-headedness and headaches. PAST MEDICAL HISTORY No past medical history on file. SURGICAL HISTORY No past surgical history on file. CURRENT MEDICATIONS Current Facility-Administered Medications Medication Dose Route Frequency Provider Last Rate Last Admin Acetaminophen (TYLENOL) tablet 650 mg 650 mg Oral Q6H PRN Justen Mehta MD Ibuprofen (MOTRIN) tablet 600 mg 600 mg Oral Q6H PRN Justen Mehta MD Nicotine (NICORETTE) gum 4 mg 4 mg Oral As directed PRN Justen Mehta MD risperiDONE (risperDAL M-TABS) disintegrating tablet 2 mg 2 mg Oral Q4H PRN Justen Mehta MD Or Ziprasidone (GEODON) injection 20 mg 20 mg Intramuscular Q4H PRN Justen Mehta MD No current outpatient medications on file. ALLERGIES Allergies Allergen Reactions Trazodone Anxiety FAMILY HISTORY No family history on file. SOCIAL HISTORY Social History Socioeconomic History Marital status: Single Spouse name: Not on file Number of children: Not on file Years of education: Not on file Highest education level: Not on file Occupational History Not on file Tobacco Use Smoking status: Not on file Smokeless tobacco: Not on file Substance and Sexual Activity Alcohol use: Not on file Drug use: Not on file Sexual activity: Not on file Other Topics Concern Not on file Social History Narrative Not on file Social Determinants of Health Financial Resource Strain: Not on file Food Insecurity: Not on file Transportation Needs: Not on file Physical Activity: Not on file Stress: Not on file Social Connections: Not on file Intimate Partner Violence: Not on file Housing Stability: Patient Unable To Answer (07/05/2023) [facility] Vital Sign Unable to Pay for Housing in the Last Year: Patient unable to answer Number of Places Lived in the Last Year: Not on file Unstable Housing in the Last Year: Patient unable to answer PHYSICAL EXAM BP 146/86 Pulse 85 Temp 98.2 F (36.8 C) Resp 16 Ht 1.956 m (6' 5) SpO2 100% Physical Exam Vitals and nursing note reviewed. Constitutional: Appearance: He is well-developed. HENT: Head: Normocephalic and atraumatic. Right Ear: External ear normal. Left Ear: External ear normal. Nose: Nose normal. Eyes: Conjunctiva/sclera: Conjunctivae normal. Pupils: Pupils are equal, round, and reactive to light. Cardiovascular: Rate and Rhythm: Normal rate and regular rhythm. Heart sounds: Normal heart sounds. No murmur heard. No friction rub. No gallop. Pulmonary: Effort: Pulmonary effort is normal. Breath sounds: Normal breath sounds. Abdominal: General: Bowel sounds are normal. There is no distension. Palpations: Abdomen is soft. There is no mass. Tenderness: There is no abdominal tenderness. There is no guarding or rebound. Hernia: No hernia is present. Musculoskeletal: General: Normal range of motion. Cervical back: Normal range of motion and neck supple. Skin: General: Skin is warm and dry. Neurological: Mental Status: He is alert and oriented to person, place, and time. Cranial Nerves: No cranial nerve deficit. Medical Decision Making DDx: ACS, atypical chest pain, GERD, gastritis, PNA Patient is well-appearing, afebrile and nontoxic. Vital signs are stable. His lungs are clear auscultation bilaterally, not dyspneic. EKG done interpreted by ED physician. Chest x-ray demonstrated no acute findings. Labs unremarkable. HS troponin and delta troponin are negative. He is low risk heart score. An x-ray of his left wrist was also obtained given his complaints of possible traumatic injury. X-ray demonstrated no acute findings. Discussed results and plan of care with patient. He is stable for discharge back to [facility]. Amount and/or Complexity of Data Reviewed Labs: ordered. Radiology: ordered. ECG/medicine tests: ordered. Risk OTC drugs. Prescription drug management. LABS Results for orders placed or performed during the hospital encounter of 07/21/23 [facility] 7 - ED Result Value Ref Range Sodium 139 135 - 145 mmol/L Potassium 3.7 3.5 - 5.0 mmol/L Chloride 106 98 - 108 mmol/L CO2 25 21 - 31 mmol/L Glucose 103 (H) 70 - 99 mg/dL BUN 17 7 - 25 mg/dL Creatinine 0.73 0.70 - 1.30 mg/dL Bun/Crea Ratio 23 Osmolality (Calculated) 292 278 - 305 mOsm/kg Anion Gap 12 7 - 17 mmol/L eGFR, CKD-EPI, Male >90 >=60 mL/min/1.73m2 MAGNESIUM Result Value Ref Range Magnesium 1.9 1.6 - 2.6 mg/dL CBC AND ELECTRONIC DIFF Result Value Ref Range WBC Count 6.03 3.73 - 10.10 K/uL RBC Count 4.41 4.38 - 5.83 M/uL Hemoglobin 13.0 (L) 13.4 - 16.8 g/dL Hematocrit 38.5 (L) 39.6 - 48.8 % Mean Cell Volume 87.3 79.0 - 94.5 fL Mean Cell Hgb 29.5 26.1 - 33.3 pg Mean Cell Hgb Conc 33.8 31.9 - 36.5 g/dL RBC Distribution 12.4 10.9 - 14.3 % Platelet Count 208 146 - 337 K/uL Mean Platelet Volume 9.5 8.7 - 12.3 fL DIFF STATUS Electronic Differential Segs + Bands Auto 54.9 % Immature Grans % 0.3 % Lymphocyte % Auto 37.1 % Monocyte % Auto 7.5 % Eosinophil % Auto 0.2 % Basophil % Auto 0.0 % Nucleated RBC 0.0 <=0.2 /100 WBC Segs + Bands,Absolute Auto 3.31 1.57 - 6.19 K/uL Immature Grans Absolute <0.04 <=0.07 K/uL Abs Lymph Auto 2.24 0.83 - 3.57 K/uL Abs Terry Auto 0.45 0.24 - 0.93 K/uL Abs Eos Auto <0.04 0.00 - 0.48 K/uL Abs Baso Auto <0.04 0.00 - 0.09 K/uL TROPONIN I INITIAL Result Value Ref Range hs-Troponin I <3 <53 ng/L TROPONIN 1 HOUR Result Value Ref Range 1 Hour hs-Troponin <3 <53 ng/L RADIOLOGY XR WRIST LEFT 3+ VIEWS Final Result IMPRESSION: 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 No acute abnormality. CHEST 1 VIEW PORTABLE Final Result IMPRESSION: No acute cardiopulmonary disease EKG done and interpreted by ED physician MEDICATIONS DURING VISIT Medications Nicotine (NICORETTE) gum 4 mg (has no administration in time range) Acetaminophen (TYLENOL) tablet 650 mg (has no administration in time range) Ibuprofen (MOTRIN) tablet 600 mg (has no administration in time range) risperiDONE (risperDAL M-TABS) disintegrating tablet 2 mg (has no administration in time range) Or Ziprasidone (GEODON) injection 20 mg (has no administration in time range) ED COURSE & MEDICAL DECISION MAKING Fransisco Cantor IS A 48 y.o. male who presented with Chief Complaint Patient presents with Chest Pain From [facility] with chest pain, given 1 nitroglycerin tab and 4 baby aspirin with questionable relief of chest pain. Had gone out to smoke and developed sharp chest pain that traveled up right arm. Brought in by medic 815. At [facility] for confusion. Patient was prescribed the following medications for home: New Prescriptions No medications on file Dx: ICD-10-CM 1. Chest pain, unspecified type R07.9 2. Left wrist pain M25.532 ED Course Prior medical records were reviewed. Patient's past medical history, social history, family history and surgical history was reviewed. All pertinent labs and imaging results were reviewed and interpreted by myself and the attending physician. The patient was updated regarding findings, and was re-assessed during ED stay. Dispo Reasons to return to the ED, potential complications, expected course of the patient's condition, and recommended treatments were discussed with the patient. The patient was also instructed to follow up with their primary care physician and/or any appropriate specialists. The patient expressed understanding and agreement, and will be discharged in good condition. Danna Owens DO was included in all aspects of care including assessment, plan, and diagnosis; Danna Owens DO was physically present to examine the patient. NANETTE Patricio 07/21/232044 [facility] 07-21-2023 Physician Emergency department Note ED STAFFING NOTE CHIEF COMPLAINT Chest Pain (From [facility] with chest pain, given 1 nitroglycerin tab and 4 baby aspirin with questionable relief of chest pain. Had gone out to smoke and developed sharp chest pain that traveled up right arm. Brought in by medic 815. At [facility] for confusion./) HPI Fransisco Cantor is a 48 y.o. male who presents with chest pain. Sent from [facility], [place] and paranoid behavioral. He developed left sided sharp chest pain, non radiating. Not exertional. Currently he is just having left wrist pain. Denies fever, nausea, vomiting, diarrhea, abd pain, fever, cough, congestion, leg pain/swelling, shortness of breath, prior CAD/DVT/PE. No past medical history on file. No past surgical history on file. Review of systems including constitutional, skin, HEENT, eyes, CV, respiratory, GI, , MSK, endocrine, neurologic, psychiatric reviewed and negative except as noted above. PHYSICAL EXAM VITAL SIGNS: BP 142/79 Pulse 97 Temp 98.2 F (36.8 C) Resp 20 Ht 1.956 m (6' 5) SpO2 97% Constitutional: No acute distress. Non-toxic appearance. HENT: Atraumatic. Normocephalic. Phonation normal. Neck: Normal range of motion. Supple. Eyes: Conjunctiva normal. No discharge. PERRL Respiratory: No respiratory distress. No rales. No ronchi. No wheezes. No stridor. Normal air movement. Patient able to talk in full sentences. Cardiovascular: Regular rate and rhythm. No murmurs. No gallops. No rubs. GI: Non distended. Nontender. No rebound. No guarding. No masses. Musculoskeletal: Intact distal pulses. No edema. Integument: No erythema. No rash. No diaphoresis. No cyanosis. Neurologic: Alert & oriented x 3. Cranial nerves grossly intact. Psychiatric: Mood and affect are normal. Wrist without TTP. No erythema. Full ROM. ED COURSE & MEDICAL DECISION MAKING On 07/21/2023 I saw and examined the patient. I discussed the history and examination with the advanced practice provider and agree with the plan of care. Hemodynamically stable, afebrile. Exam overall benign and reassuring. Consider GERD, costochondritis, pleurisy. Low concern for PNA, ACS, PE. Low heart score. CXR on my review without acute large opacities. In terms of the wrist, consider arthritis, muscle strain. Doubt infectious etiology. Labs reassuring. If work-up reassuring, anticipate discharge back to [facility]. 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 No acute abnormality. CHEST 1 VIEW PORTABLE Final Result IMPRESSION: No acute cardiopulmonary disease Differential includes life-threatening causes as above. Medical Decision Making Amount and/or Complexity of Data Reviewed External Data Reviewed: radiology and notes. Labs: ordered. Decision-making details documented in ED Course. Radiology: ordered and independent interpretation performed. Decision-making details documented in ED Course. ECG/medicine tests: ordered and independent interpretation performed. Decision-making details documented in ED Course. Risk Decision regarding hospitalization. Medication list reviewed. I have personally seen and examined this patient. I have fully participated in the care of this patient. I have reviewed all pertinent clinical information, including history, physical exam and plan with the advanced practice provider. Prior medical records were reviewed. All pertinent labs and imaging results were reviewed and interpreted by me. The patient was updated regarding findings, and was re-assessed during ED stay. Justen Mehta MD 07/21/23 1546 [facility] Work Phone: 07-21-2023 Note Acute Coronary Syndr ome (ACS): Initial Evaluation and Management: [email or web address] [facility] 07-21-2023 Emergency department Note Bed: 16 Expected date: Expected time: Means of arrival: Comments: [id number] [facility] 07-18-2023 Discharge summary Note Date/Time July 17, 2023 10:15am [facility] Medical Records Department [address] [place] [address] Emergency Department Summary 07/17/23 MR#: [id number] Acct: [id number] Name: CRUSHERFRANSISCO Rep #:[id number] : 1975 48 From: Steve Hebert DO PCP: [facility] St atus:REG ER Location: ED ADDENDUM by Dr. Grady Glez DO on 07/17/23 at 2218 Patient was accepted to [facility] at 2215. [place] slip and transfer form were filled out. Patient will be transferred there in the morning. 07/17/232217<Electronically signed by Grady Glez DO> Cosigner Signature (if applicable): cc: [facility] ~* Signed ADDENDUM by Dr. Grady Glez DO on 07/17/23 at 2207 Care of the patient was turned over to [place] pending psychiatric placement. Patient continued to be agitated and combative. Patient was given a repeat doseof Haldol 5 mg and Versed 2 mg. Patient was able to calm down after this. Currently, patient is resting comfortably and sleeping. Psychiatric placement is still pending. Care of the patient will be turned over the oncoming physician pending psychiatric placement. 07/17/232206<Electronically signed by Grady Glez DO> Cosigner Signature (if applicable): cc: [facility] ~* Signed HPI History of Present Illness Chief Complaint: Alt LOC Detail of Chief Complaint: Mental status change Informant: patient and police/loan service officer Narrative Narrative: Patient brought to the emergency department via EMS and with police escort. Patient apparently was arrested last evening and was in [facility] from 6 PM until this morning. Apparently had some bizarre behavior at the time and had to be escorted out of [facility]. He apparently then came back to [facility] and attempted to interiano one of the officers. Patient has history of drug abuse. He admits occasional alcohol use. He denies feeling suicidal or homicidal. He denies auditory or visual hallucinations. Somewhat of a poor historian and has flight of ideas. Patient apparently was arrested for disorderly conduct and had a warrant out for his arrest. Nursing staff was able to contact patient's mother and apparently patient has a bed available at a psychiatric facility that he wassupposed to go to today. Apparently has history of schizophrenia. [facility] Medical History Amphetamine use disorder, moderate, dependence Benzodiazepine use and dependence Drug abuse Hepatitis B Hepatitis C Opiate abuse, continuous Opiate abuse, continuous Polysubstance dependence including opioid type drug, continuous use Home Medications buprenorphine 8 mg-naloxone 2 mg sublingual film 2 film sublingual DAILY opiod dependence 05/27/23 [History Last Taken Unknown] Allergy/AdvReac Type Severity Reaction Status Date / Time No Known Allergies Allergy Verified 05/27/23 08:24 Surgical History Hx of total knee replacement S/P left knee surgery Social History Smoking Status: Current every day smoker tobacco type: cigarettes EXAM Physical Exam Const Vital Signs: 07/17/23 10:02 07/17/23 11:02 Temperature 97.8 F 98.1 F Temperature Source Temporal Temporal Pulse Rate 96 92 Respiratory Rate 18 17 Blood Pressure 137/78 H 167/101 H Blood Pressure Mean 97 123 Pulse Ox 97 100 Oxygen Delivery Method Room Air Room Air Positive well nourished and well developed General Appearance ED: well developed and NAD HEENT Reports TM's clear and moist mucous membranes normocephalic and atraumatic; Negative for trauma or tenderness Tympanic Membrane ED: Yes TM's clear Eyes PERRL and EOMs intact bilaterally General Eye ED: Negative for pale conjunctiva or scleral icterus Neck no lymphadenopathy, supple and no JVD General: Negative for tenderness Chest Wall inspection of chest normal and palpation of chest normal Chest: Negative for tenderness Resp normal respiratory effort and clear to auscultation bilaterally Effort and Inspection: Negative for respiratory distress or pain with movement Auscultation: Negative for rhonchi, wheezes or diminished lung sounds Cardio regular rate, regular rhythm, S1 normal heart sound, S2 normal heart sound and no murmurs Peripheral Pulses: pulses 2+ throughout GI normal to inspection, nondistended, normoactive bowel sounds, soft to palpation,non-tender, non-distended and no masses Back/Spine no CVA tenderness and no thoracic nor lumbar tenderness Extremity normal to inspection General Extremety ED: Negative for edema General Extremity: Negative for edema Neuro oriented x3, CN's II-XII intact bilaterally, no sensory deficits noted and gait normal Neuro Narrative: Mental status change with bizarre behavior Sensorium / Orientation: awake, alert, oriented to person, oriented to place andoriented to time Motor Exam: strength 5/5 throughout and strength abnormal Psych mental status grossly normal Skin no rashes or lesions noted and no wounds MDM MDM MDM Narrative Medical decision making narrative: Patient presents with police escort ady landis. Came to light that has significant mental health issues and was supposed to be admitted to mental health facility today. Patient cooperative at this time. He is medically cleared based on lab workup. He has CBC with differential showing of 8.5 with hemoglobin 14 and platelet count of 220. Chemistries unremarkable. LFTs were normal. Urinalysis was normal. Talk screen was negative and alcohol was negative. We did obtain a CT scan of the brain without contrast that on my interpretation I do not appreciate any significant abnormalities such as intracranial hemorrhage. CT scan was unremarkable. Patient continued to decompensate and was given milligram of Ativan. He continued to refuse to follow rules and stay in bed. He apparently had defecated and started throwing across the room and then was wiping it on his face. Patient had to be physically and chemically restrained. He was given Geodon 20 mg IM. Patient will require transfer to psychiatric facility for definitive care. Lab Data Attestation: I reviewed the patient's lab results. Labs: Laboratory Results - last 24 hr 07/17/23 07/17/23 07/17/23 10:06 10:20 10:55 WBC 8.5 RBC 4.80 Hgb 14.0 Hct 41.9 MCV 87.3 MCH 29.2 MCHC 33.4 RDW Std Deviation 39.8 RDW Coeff of Car 12.5 Plt Count 220 MPV 9.7 Immature Gran % (Auto) 0.400 Neut % (Auto) 69.8 Lymph % (Auto) 21.6 Terry % (Auto) 8.1 Eos % (Auto) 0.0 Baso % (Auto) 0.1 Absolute Neuts (auto) 5.9 Absolute Lymphs (auto) 1.84 Nucleated RBC % 0 Sodium 140 Potassium 4.1 Chloride 105 Carbon Dioxide 27.0 Anion Gap 8 BUN 11 Creatinine 0.76 Estim Creat Clear Calc 164.62 Est GFR (MDRD) Af Amer 140 Est GFR (MDRD) Non-Af 116 BUN/Creatinine Ratio 14.4 Glucose 101 Calcium 9.5 Total Bilirubin 0.50 AST 17 ALT 38 Alkaline Phosphatase 88 Total Protein 7.2 Albumin 3.8 Globulin 3.4 Albumin/Globulin Ratio 1.1 Urine Color Yellow Urine Clarity Clear Urine pH 6.5 Ur Specific [place] 1.020 Urine Protein 15 H Urine Glucose (UA) Normal Urine Ketones Negative Urine Occult Blood 10 H Urine Nitrite Negative Urine Bilirubin Negative Urine Urobilinogen Normal Ur Leukocyte Esterase 25 H Urine RBC 0-5 SEEN Urine WBC 0-5 SEEN Ur Squamous Epith Cells 0 SEEN Urine Bacteria 0 SEEN Urine Mucus 0 SEEN Urine Opiates Screen NEGATIVE Urine Methadone Screen NEGATIVE Ur Barbiturates Screen NEGATIVE Ur Phencyclidine Scrn NEGATIVE Ur Amphetamines Screen NEGATIVE MDMA (Ecstasy) Screen NEGATIVE U Benzodiazepines Scrn NEGATIVE Urine Cocaine Screen NEGATIVE U Cannabinoids Screen NEGATIVE Ur Drug Screen Comment Ethyl Alcohol < 3.0 POC Glucose 107 H Radiography Diagnostic Testing: Clinical Impression(s) from Imaging Studies Brain CT 07/17/23 10:11 IMPRESSION: Normal CT brain without intravenous contrast. Electronically Signed: Juliano Chavez MD at 11:51 EDT , Discharge Plan Triage Chief Complaint: Alt LOC ED Provider: Steve Hebert Dx/Rx/DC Orders Clinical Impression: Abnormal behavior, Hx of schizophrenia Prescriptions: No Action buprenorphine-naloxone 8-2 mg film 2 film sublingual DAILY Patient Comments: DISSOLVE 2 films UNDER THE TONGUE EVERY DAY DIRECTED Primary Care Provider: [facility]al Lyons [facility] - Disposition Disposition: Psychiatric Hospital or Unit What to do if you have Problems For any increased pain, shortness of breath, bleeding, nausea or vomiting, chestpain, or any unexpected problems, contact your Primary Care Provider. Call [facility] ([phone]) or report to the closest Emergency Room. Call 911 if necessary. 07/17/23 1529 <Electronically signed by Steve Hebert DO> Cosigner Signature (if applicable): CC: [facility] ~ Signed [facility] Work Phone: [phone] NoteDischarge Summary Fransisco Cantor : 1975 ADMIT DATE: 07/05/2023 DISCHARGE DATE: 07/16/2023 PRIMARY CARE PHYSICIAN: Niya Camara (Inactive) VISIT STATUS: Admission CODE STATUS: Prior DISCHARGE DIAGNOSES: 1.) Schizoaffective Disorder 2.) History of polysubstance abuse ADMITTING CIRCUMSTANCES: Fransisco Cantor is a 48 y.o. male with a history of schizoaffective bipolar type and history of polysubstance abuse presenting to [facility] ED from home to ED due to concerns for withdrawing from his Suboxone which he didn't take for several day. While in ED, patient was displaying symptoms of clinton and felt like he wasn't safe to return home. Urine Drug Screen findings were negative. ETG, buprenorphine, and suboxone were negative. TSH normal. EKG revealed sinus rhythm with QTC 448. While in ED, patient reportedly displayed symptoms of clinton including flight of ideas, pressured speech, delusions. He was reportedly having rastafari ideations. Also endorsed seeing things in threes and fixated on rapture. Upon evaluation today, patient continues to be disorganized, but is not as pressured. He did receive Zyprexa 10mg last night and reports that it helped him feel better and sleep. Patient reports that he stopped taking all of his medications 7 days ago because of my rastafari ideas. He did not elaborate further. Patient reports that he is attending groups because he doesn't like to have free time. Reports that he feels good while being in the hospital. Patient reports that he is about the to get evicted because he hasn't been paying rent. States that he hasn't had gas in his home for 4 months because he has not paid the bill. 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 Patient endorses having previous manic episodes and states that this current episode feels similar. Patient versus sleep, pressured speech, racing thoughts, impulsiveness, euphoric mood. Reports that he was on Effexor through a free clinic in [place]. Was also receiving Suboxone through [facility]. Patient is denying any suicidal or homicidal ideations. Denies any auditory or visual hallucinations. Discussed with patient to start him on Zyprexa 15 mg nightly, to which the patient was agreeable. HOSPITAL COURSE: Fransisco Cantor was admitted to [facility] for psychiatric stabilization due to concern for clinton and delusions. Patient was initially brought in to [facility] ED accompanied by mother after patient was displaying symptoms of clinton, religiously preoccupied, and was not able to take care of himself. Patient has a significant history of polysubstance abuse (heroin, fentanyl), but has been reportedly sober for 5 years. Patient was on Suboxone, but decided to stop taking it abruptly along with his home Effexor. There were concerns for possible withdrawal and Addiction Medicine was consulted. Fransisco Cantor was treated with Zyprexa and Risperdal. Initially was started on Zyprexa monotherapy, however, he required prn Benadryl 50mg, Haldol 5mg, and Ativan 2mg almost daily initially throughout his hospital course and thus was also started on Risperdal 1mg BID. Pt was compliant with medications and maintained safety on the unit. They did not require restraints or seclusion. Fransisco Cantor was social on the unit. Pt consistently denied suicidal or homicidal ideation. Patient was bizarre and would frequently repeat things, however was usually pleasant during physician encounters. He requested to be sent to inpatient rehab at [facility]. On day of discharge, patient was euthymic. Denies any SI/HI. Denies any AVH. Pt denies any access to weapons or firearms. Is able to contract for safety and is agreeable to strict return criteria. Pt was willing to follow up outpatient and has psychiatric outpatient follow ups as scheduled. SIGNIFICANT DIAGNOSTIC STUDIES: None CONSULTANTS: Addiction Medicine RECOMMENDED NEXT STEPS: Follow up as scheduled. DISCHARGE MEDICATIONS: Medication List START taking these medications albuterol 108 (90 Base) MCG/ACT inhaler Inhale 2 puffs every 6 hours as needed for wheezing. baclofen 10 MG tablet Commonly known as: Lioresal Take 1 tablet (10 mg) by mouth 3 times daily. cloNIDine 0.1 MG tablet Commonly known as: Catapres Take 1 tablet (0.1 mg) by mouth 3 times daily. OLANZapine 20 MG tablet Commonly known as: ZyPREXA Take 1 tablet (20 mg) by mouth Nightly. risperiDONE 1 MG tablet Commonly known as: RisperDAL Take 1 tablet (1 mg) by mouth 2 times daily. Where to Get Your Medications You can get these medications from any pharmacy Bring a paper prescription for each of these medications baclofen 10 MG tablet cloNIDine 0.1 MG tablet OLANZapine 20 MG tablet risperiDONE 1 MG tablet Information about where to get these medications is not yet available Ask your nurse or doctor about these medic (more content not included)...[facility]03-24-2024 NoteDepartment of Psychiatry Attending Progress Note CHIEF COMPLAINT: Psychosis SUBJECTIVE: The patient is seen in follow-up for schizoaffective disorder. The patient was seen and examined. The chart was reviewed. The patient was discussed with staff. Per nursing, the patient has been mostly isolated to his room. He remains compliant with scheduled medications. On approach, the patient is trying to nap. He denies depressed mood and anhedonia. No suicidal or homicidal ideation was voiced or detected. No delusions voiced. He denies auditory and visual hallucinations. He denies difficulty with sleep or appetite. No increased energy or rapid thoughts. He is compliant with medications and is tolerating them well. OBJECTIVE Physical Visit Vitals BP 141/97 Pulse 103 Temp 36.2 ?C (97.1 ?F) (Temporal) Resp 16 Mental Status Examination: The patient appears his stated age. He is casually groomed wearing hospital attire. He is cooperative and makes fair eye contact. He has normal psychomotor activity. No involuntary movements. He was not seen ambulating. His speech is clear and spontaneous. Mood is mildly anxious. Affect is mood congruent. Thought process is grossly organized. Thought content: No suicidal or homicidal ideation. No delusions. Patient does not appear internally stimulated. Memory, attention, and concentration are grossly intact. Insight and judgment are limited. Data Labs reviewed Medications Current Facility-Administered Medications: acetaminophen (Tylenol) tablet 650 mg, 650 mg, Oral, q6h PRN, 650 mg at 07/13/23 0841 OR acetaminophen (Tylenol) suppository 650 mg, 650 mg, Rectal, q6h PRN, BERENICE José CNP albuterol 108 (90 Base) MCG/ACT inhaler 2 puff, 2 puff, Inhalation, q6h PRN, Autumn Oral, DIET TECH - PACK OUT OPERATOR, 2 puff at 07/15/23804 baclofen (Lioresal) tablet 10 mg, 10 mg, Oral, TID, BERENICE Mullins CNP, 10 mg at 07/15/232042 benztropine (Cogentin) injection 2 mg, 2 mg, IntraMUSCular, BID PRN, BERENICE José CNP cloNIDine (Catapres) tablet 0.1 mg, 0.1 mg, Oral, TID, BERENICE Mullins CNP, 0.1 mg at 07/15/232042 diphenhydrAMINE (BENADryl) capsule 50 mg, 50 mg, Oral, q6h PRN, 50 mg at 07/15/23801 AND haloperidol (Haldol) tablet 5 mg, 5 mg, Oral, q6h PRN, 5 mg at 07/15/23801 AND LORazepam (Ativan) tablet 2 mg, 2 mg, Oral, q6h PRN, BERENICE José CNP, 2 mg at 07/15/23801 diphenhydrAMINE (BENADryl) injection 50 mg, 50 mg, IntraMUSCular, q6h PRN, 50 mg at 07/07/232310 AND haloperidol lactate (Haldol) injection 5 mg, 5 mg, IntraMUSCular, q6h PRN, 5 mg at 07/07/232310 AND LORazepam (Ativan) injection 2 mg, 2 mg, IntraMUSCular, q6h PRN, BERENICE José PACK OUT OPERATOR, 2 mg at 07/07/232310 gabapentin (Neurontin) capsule 100 mg, 100 mg, Oral, q6h PRN, BERENICE Mullins CNP hydrOXYzine pamoate (Vistaril) capsule 50 mg, 50 mg, Oral, q6h PRN, BERENICE José CNP, 50 mg at 07/10/232016 nicotine (Nicoderm, Step 2) 14 MG/24HR patch 1 patch, 1 patch, TransDERmal, Daily, Brennon Brambila MD, 1 patch at 07/13/23 0837 nicotine polacrilex (Commit) lozenge 2 mg, 2 mg, Mouth/Throat, q2h PRN, Brennon Brambila MD, 2 mg at 07/13/23 1738 OLANZapine (ZyPREXA) tablet 20 mg, 20 mg, Oral, Nightly, Brennon Brambila MD, 20 mg at 07/15/232042 ondansetron ODT (Zofran-ODT) disintegrating tablet 4 mg, 4 mg, Oral, q8h PRN, 4 mg at 07/15/23 0419 OR ondansetron (Zofran) injection 4 mg, 4 mg, IntraVENous, q6h PRN, BERENICE José CNP polyethylene glycol (PEG) 3350 (Miralax) packet 17 g, 17 g, Oral, Daily PRN, BERENICE José CNP risperiDONE (RisperDAL) tablet 1 mg, 1 mg, Oral, BID, Kirill Emerson MD, 1 mg at 07/15/232043 sodium chloride (Coosa) 0.65 % nasal spray 2 spray, 2 spray, Each Nostril, q2h PRN, Autumn OralBERENICE sylvester CNP traZODone (Desyrel) tablet 50 mg, 50 mg, Oral, Nightly PRN, BERENICE José CNP, 50 mg at 07/06/232054 ASSESSMENT: Schizoaffective Disorder PLAN: At this time, inpatient psychiatric care remains medically necessary in order to treat the above diagnoses and symptoms. The patient will benefit from continued inpatient psychiatric monitoring, evaluation, and treatment. I will continue the current medication regimen which includes Zyprexa 20 mg nightly and Risperdal 1 mg bid. He needs additional time to respond to these medications. No changes will be made at this time. Will discharge the patient to the appropriate level of care when medically and psychiatrically stable. Care will be resumed by Dr. Brambila tomorrow.[facility] [id number] NoteDepartment of Psychiatry Attending Progress Note CHIEF COMPLAINT: Psychosis SUBJECTIVE: The patient is seen in follow-up for schizoaffective disorder. The patient was seen and examined. The chart was reviewed. The patient was discussed with staff. Per nursing, the patient felt agitated this morning and requested prn medication. He has been compliant with scheduled medications. On approach, the patient is resting and somewhat drowsy. He denies depressed mood and anhedonia. No suicidal or homicidal ideation was voiced or detected. No delusions voiced. He denies auditory and visual hallucinations. He denies difficulty with sleep or appetite. No increased energy or rapid thoughts. He is compliant with medications and is tolerating them well. OBJECTIVE Physical Visit Vitals BP 145/99 Pulse 85 Temp 36.6 ?C (97.9 ?F) (Temporal) Resp 16 Mental Status Examination: The patient appears his stated age. He is casually groomed wearing hospital attire. He is cooperative and makes fair eye contact. He has normal psychomotor activity. No involuntary movements. He was not seen ambulating. His speech is clear and spontaneous. Mood is mildly anxious. Affect is mood congruent. Thought process is grossly organized. Thought content: No suicidal or homicidal ideation. No delusions. Patient does not appear internally stimulated. Memory, attention, and concentration are grossly intact. Insight and judgment are limited. Data Labs reviewed Medications Current Facility-Administered Medications: acetaminophen (Tylenol) tablet 650 mg, 650 mg, Oral, q6h PRN, 650 mg at 07/13/23 0841 OR acetaminophen (Tylenol) suppository 650 mg, 650 mg, Rectal, q6h PRN, BERENICE José CNP albuterol 108 (90 Base) MCG/ACT inhaler 2 puff, 2 puff, Inhalation, q6h PRN, Autumn OralBERENICE - SHANITA, 2 puff at 07/14/23 0800 baclofen (Lioresal) tablet 10 mg, 10 mg, Oral, TID, BERENICE Mullins CNP, 10 mg at 07/14/232110 benztropine (Cogentin) injection 2 mg, 2 mg, IntraMUSCular, BID PRN, BERENICE José CNP cloNIDine (Catapres) tablet 0.1 mg, 0.1 mg, Oral, TID, BERENICE Mullins CNP, 0.1 mg at 07/14/232110 diphenhydrAMINE (BENADryl) capsule 50 mg, 50 mg, Oral, q6h PRN, 50 mg at 07/14/23930 AND haloperidol (Haldol) tablet 5 mg, 5 mg, Oral, q6h PRN, 5 mg at 07/14/23930 AND LORazepam (Ativan) tablet 2 mg, 2 mg, Oral, q6h PRN, Khadijah Steen APRN - PACK OUT OPERATOR, 2 mg at 07/14/23930 diphenhydrAMINE (BENADryl) injection 50 mg, 50 mg, IntraMUSCular, q6h PRN, 50 mg at 07/07/232310 AND haloperidol lactate (Haldol) injection 5 mg, 5 mg, IntraMUSCular, q6h PRN, 5 mg at 07/07/232310 AND LORazepam (Ativan) injection 2 mg, 2 mg, IntraMUSCular, q6h PRN, Khadijah Steen APRN - PACK OUT OPERATOR, 2 mg at 07/07/232310 gabapentin (Neurontin) capsule 100 mg, 100 mg, Oral, q6h PRN, Geena Sloan APRN - PACK OUT OPERATOR hydrOXYzine pamoate (Vistaril) capsule 50 mg, 50 mg, Oral, q6h PRN, Khadijah Steen APRN - PACK OUT OPERATOR, 50 mg at 07/10/232016 nicotine (Nicoderm, Step 2) 14 MG/24HR patch 1 patch, 1 patch, TransDERmal, Daily, Brennon Brambila MD, 1 patch at 07/13/23 0837 nicotine polacrilex (Commit) lozenge 2 mg, 2 mg, Mouth/Throat, q2h PRN, Brennon Brambila MD, 2 mg at 07/13/23 1738 OLANZapine (ZyPREXA) tablet 20 mg, 20 mg, Oral, Nightly, Brennon Brambila MD, 20 mg at 07/14/23 2111 ondansetron ODT (Zofran-ODT) disintegrating tablet 4 mg, 4 mg, Oral, q8h PRN, 4 mg at 07/14/23 0536 OR ondansetron (Zofran) injection 4 mg, 4 mg, IntraVENous, q6h PRN, Khadijah Steen APRN - PACK OUT OPERATOR polyethylene glycol (PEG) 3350 (Miralax) packet 17 g, 17 g, Oral, Daily PRN, Khadijah Steen DIET TECH - PACK OUT OPERATOR risperiDONE (RisperDAL) tablet 1 mg, 1 mg, Oral, BID, Kirill Emerson MD, 1 mg at 07/14/232110 traZODone (Desyrel) tablet 50 mg, 50 mg, Oral, Nightly PRN, Khadijah Steen APRN - PACK OUT OPERATOR, 50 mg at 07/06/232054 ASSESSMENT: Schizoaffective Disorder PLAN: At this time, inpatient psychiatric care remains medically necessary in order to treat the above diagnoses and symptoms. The patient will benefit from continued inpatient psychiatric monitoring, evaluation, and treatment. I will continue the current medication regimen which includes Zyprexa 20 mg nightly and Risperdal 1 mg bid. He needs additional time to respond to this medication regimen. No changes will be made at this time. Will discharge the patient to the appropriate level of care when medically and psychiatrically stable.[facility] 07-14-2023 NoteNight Shift Summary/Progress Pt was in his room at the beginning of the shift. Continued to be withdrawn and isolative to his room. Denies SI/HI/AH/VH. Pt concordant with all the HS medications. Appears to have slept from 9pm and has been observed asleep till 5am when he had a shower. Pt is discharge focused at this time. Remains on level II observations. All safety checks maintained as per the unit protocols. Vitals BP 131/90 Temp 97.8 Pulse 111 Resp [address]03-22-2024 NoteDEPARTMENT OF home security professional Progress Note - Inpatient Adult IDENTIFYING INFORMATION NAME: Fransisco Cantor : 1975 TODAY'S DATE: 07/13/2023 CHIEF COMPLAINT: clinton, delusions [x] Patient was seen and examined in person [x] Chart reviewed [x] Labs reviewed [x] Patient's case discussed with staff/team Fransisco Cantor was seen in follow up for schizoaffective disorder, which is chronic in nature. Today, Fransisco Cantor was seen and evaluated in patient's room. Per nursing staff, patient was agitated this morning around 0530 and required prn medications. During this encounter, he states that he thought a police communications dispatcher was laughing at him and got upset. States that he now realizes the officer wasn't laughing at him. Patient is discharge focused and wants to go to [facility]. 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 Patient denies any suicidal or homicidal ideation. Denies any auditory or visual hallucinations, but per chart review patient did endorse auditory hallucinations yesterday to nursing staff. REVIEW OF SYSTEMS [x] All negative/unchanged unless otherwise checked and noted. [] Constitutional [] Eyes [] Ear/Nose/Mouth/Throat [] Respiratory [] Cardiovascular [] Neurological [] Gastrointestinal [] Genitourinary [] Musculoskeletal [] Skin [] Endocrine [] Hematologic Vitals : BP 131/89 Pulse 101 Temp 36.7 ?C (98.1 ?F) (Temporal) Resp 17 Ht 1.956 m (6' 5) Wt 109 kg (240 lb) SpO2 98% BMI 28.46 kg/m? MENTAL STATUS EXAM Level of consciousness: Alert Appearance: Well-groomed Eye contact: Good Behavior/Motor: Normal Gait: Normal gait Involuntary movements: Normal Attitude toward examiner: Cooperative Speech: clear, normal rate, and normal volume Mood: Irritable Affect: mood congruent Associations: Intact Thought processes: Circumstantial Thought content: No SI/HI/AVH Cognition: Intact Concentration: Intact Memory: Intact Insight: Impaired Judgement: Impaired ASSESSMENT Schizoaffective Disorder Patient is: Patient symptoms :are improving [x] Patient continues to need active treatment furnished directly by or requiring the supervision of inpatient psychiatric personnel due to need for therapeutic interventions and medication management PLAN Will schedule Risperdal 1mg BID for psychosis/clinton Anticipate discharge on Sunday to [facility] if patient's symptoms are stable. [x] Continue Current Medications if not otherwise stated. Will continue to titrate medications and assess for effectiveness and tolerability. baclofen, 10 mg, Oral, TID cloNIDine, 0.1 mg, Oral, TID nicotine, 1 patch, TransDERmal, Daily OLANZapine, 20 mg, Oral, Nightly risperiDONE, 1 mg, Oral, BID [x] Continue close monitoring of safety, medication side effects, and target symptoms [x] Continue crisis intervention oriented psychotherapy, group and milieu therapies [x] Social work and transitional care continue to assist with necessary family liaison and discharge planning [x] Pt expressed agreement and understanding with treatment plan. PSYCHOTHERAPY/COUNSELING [x] Therapeutic interview [x] Supportive [] CBT Discussed and staffed with attending physician, Dr. Brambila, Chart was reviewed and case was discussed with the nurse. The patient was discussed with, and seen with Dr. Emerson. I agree with this progress note, assessment, and plan. Discussion/plan: Patient continues to require as needed medication for psychosis. He has required PRN meds for the past 4 days, each afternoon. He required the meds yesterday afternoon and then again this morning. My concern is that if he was discharged to the inpatient drug and alcohol treatment program that he would be sent to the ER because of the psychosis. Today we will start Remeron 1 mg twice daily in addition to the Zyprexa 20 mg at bedtime for psychosis stabilization. I am hopeful for discharge to [facility] on Sunday Brennon [facility] [id number] [facility] Hospital[facility] security professional Progress Note - Inpatient Adult IDENTIFYING INFORMATION NAME: Fransisco Cantor : 1975 TODAY'S DATE: 07/12/2023 CHIEF COMPLAINT: clinton, delusions [x] Patient was seen and examined in person [x] Chart reviewed [x] Labs reviewed [x] Patient's case discussed with staff/team Fransisco Cantor was seen in follow up for schizoaffective disorder, which is chronic in nature. Today, Fransisco Cantor was seen and evaluated in patient's room. Per nursing, patient has been getting agitated and more delusional in late afternoons. He has been receiving prn medications as a result and responds well. Currently compliant with his scheduled Zyprexa. During encounter today, patient reports he is doing well. Denies any concerns with his sleep or appetite. Patient remains discharge focused and would like to go to [facility] residential. Patient's symptoms do appear to be improving. Denies any SI/HI. Denies any AVH. He is calm and cooperative throughout evaluation. Will re-assess patient tomorrow and tentative plan is to discharge tomorrow if his symptoms are well controlled. Fransisco has no other questions or concerns at this time. REVIEW OF SYSTEMS [x] All negative/unchanged unless otherwise checked and noted. [] Constitutional [] Eyes [] Ear/Nose/Mouth/Throat [] Respiratory [] Cardiovascular [] Neurological [] Gastrointestinal [] Genitourinary [] Musculoskeletal [] Skin [] Endocrine [] Hematologic Vitals : BP 143/94 Pulse 95 Temp 36.9 ?C (98.4 ?F) (Temporal) Resp 15 Ht 1.956 m (6' 5) Wt 109 kg (240 lb) SpO2 97% BMI 28.46 kg/m? MENTAL STATUS EXAM Level of consciousness: Alert Appearance: Well-groomed Eye contact: Good Behavior/Motor: Psychomotor agitation Gait: Normal gait Involuntary movements: Normal Attitude toward examiner: Cooperative Speech: clear, normal rate, and normal volume Mood: Euthymic Affect: mood congruent Associations: Intact Thought processes: Circumstantial Thought content: No SI/HI/AVH Cognition: Intact Concentration: Intact Memory: Intact Insight: Fair Judgement: Fair ASSESSMENT Schizoaffective Disorder Patient is: Patient symptoms :are improving [x] Patient continues to need active treatment furnished directly by or requiring the supervision of inpatient psychiatric personnel due to need for therapeutic interventions and medication management PLAN Anticipate discharge tomorrow to [place] [facility] if patient's symptoms are stable. [x] Continue Current Medications if not otherwise stated. Will continue to titrate medications and assess for effectiveness and tolerability. baclofen, 10 mg, Oral, TID cloNIDine, 0.1 mg, Oral, TID nicotine, 1 patch, TransDERmal, Daily OLANZapine, 20 mg, Oral, Nightly [x] Continue close monitoring of safety, medication side effects, and target symptoms [x] Continue crisis intervention oriented psychotherapy, group and milieu therapies [x] Social work and transitional care continue to assist with necessary family liaison and discharge planning [] Pt expressed agreement and understanding with treatment plan. PSYCHOTHERAPY/COUNSELING [x] Therapeutic interview [x] Supportive [] CBT Discussed and staffed with attending physician, Dr. Brambila, Manufacturing Mechanic, PGY-2 Chart was reviewed and case was discussed with the nurse. The patient was discussed with, and seen with Dr. Emerson. I agree with this progress note, assessment, and plan. Brennon Brambila [facility] [id number] NoteDEPARTMENT OF home security professional Progress Note - Inpatient Adult IDENTIFYING INFORMATION NAME: Fransisco Cantor : 1975 TODAY'S DATE: 07/11/2023 CHIEF COMPLAINT: clinton [x] Patient was seen and examined in person [x] Chart reviewed [x] Labs reviewed [x] Patient's case discussed with staff/team Fransisco Cantor was seen in follow up for schizoaffective disorder, which is chronic in nature. Today, Fransisco Cantor was seen and evaluated in the patient room. Per nursing, patient continues to be a little disorganized and delusional at times. Continues to exhibit rastafari preoccupation. Upon encounter, patient reports she is doing terrific. Could be better. After a short time, patient's disorganized thoughts were evident. Patient began to talk about numbers and states how he is good with numbers but cannot remember names. Began to talk about how his mom makes pies and began to talk about pi R^2, the formula for area of a [place]. Patient was not making much sense at this point. Continues to be religiously preoccupied. Patient states I believe in the Bible. I am a [employer]. Hira Iniguez. Patient is discharged focus wanting to go to [place]. He does appear much better today than when he first presented on the unit. REVIEW OF SYSTEMS [x] All negative/unchanged unless otherwise checked and noted. [] Constitutional [] Eyes [] Ear/Nose/Mouth/Throat [] Respiratory [] Cardiovascular [] Neurological [] Gastrointestinal [] Genitourinary [] Musculoskeletal [] Skin [] Endocrine [] Hematologic Vitals : BP 137/93 Pulse 101 Temp 36.6 ?C (97.8 ?F) (Temporal) Resp 17 Ht 1.956 m (6' 5) Wt 109 kg (240 lb) SpO2 97% BMI 28.46 kg/m? MENTAL STATUS EXAM Level of consciousness: Alert Appearance: Well-groomed Eye contact: Good Behavior/Motor: Normal Gait: Normal gait Involuntary movements: Normal Attitude toward examiner: Cooperative Speech: clear, normal rate, and normal volume Mood: Euthymic Affect: full Associations: Intact Thought processes: Disorganized Thought content: No SI/HI/AVH and Delusional Cognition: Intact Concentration: Intact Memory: Intact Insight: Impaired, improving Judgement: Fair ASSESSMENT Schizoaffective Disorder BMI Classification: Overweight (BMI 25.0-29.9) Patient is: Patient symptoms :are improving [x] Patient continues to need active treatment furnished directly by or requiring the supervision of inpatient psychiatric personnel due to need for therapeutic interventions and medication management PLAN Plan to discharge patient to residential treatment at [facility] when appropriate. Possibly in next day or two. [x] Continue Current Medications if not otherwise stated. Will continue to titrate medications and assess for effectiveness and tolerability. baclofen, 10 mg, Oral, TID cloNIDine, 0.1 mg, Oral, TID nicotine, 1 patch, TransDERmal, Daily OLANZapine, 20 mg, Oral, Nightly [x] Continue close monitoring of safety, medication side effects, and target symptoms [x] Continue crisis intervention oriented psychotherapy, group and milieu therapies [x] Social work and transitional care continue to assist with necessary family liaison and discharge planning [] Pt expressed agreement and understanding with treatment plan. PSYCHOTHERAPY/COUNSELING [x] Therapeutic interview [x] Supportive [] CBT Discussed and staffed with attending physician, Dr. Brambila, Manufacturing Mechanic, PGY-2 Chart was reviewed and case was discussed with the nurse. The patient was discussed with, and seen with Dr. Emerson. I agree with this progress note, assessment, and plan. Brennon Isabel [facility]2024 NoteProblem: Potential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 hyperarousal, flashbacks, nightmares, intrusive thoughts/behaviors, avoidance, trouble functioning due to past trauma MEDICAL REVIEW OF SYSTEMS CONSTITUTIONAL: Negative for weight change, appetite change, fever, chills, night sweats HEENT: Negative for sinus congestion, sore throat, change in hearing, change in vision, eye pain RESPIRATORY: Negative for cough, shortness of breath, wheezing CARDIOVASCULAR: Negative for chest pain, palpitations NEUROLOGICAL: Negative for dizziness, numbness, tingling, weakness, tremors, seizures, headaches GASTROINTESTINAL: Negative for constipation, diarrhea, nausea, vomiting, dysphagia GENITOURINARY: Negative for urinary hesitancy, urgency, increased frequency, incontinence, burning, itching MUSCULOSKELETAL: Negative for arthralgias, myalgias, back pain, gait problem SKIN: Negative for rash, lesions, scars ENDOCRINE: Negative for hot/cold intolerance, polyuria, polydipsia HEMATOLOGIC: Negative for excessive bruising or bleeding PSYCHIATRIC HISTORY Past Diagnoses: Schizoaffective, bipolar type Outpatient psychiatrist: Denies Therapist: Denies Medications: Effexor Previous Medications: Risperdal, Depakote, Seroquel, Remeron Hospitalizations: [address] [place] [address] [facility] Self harm: Denies Suicide attempts: Denies Family Psychiatric History: Denies any other substance abuse, mental health illness, or known suicide completions in the family. MEDICAL HISTORY Past Medical History: Diagnosis Date Anxiety Ishmaelen (more content not included)...[facility]11-04-2022 Hospital Discharge instructions* Discharge Instructions* BERENICE Flores CNP - 02/24/2022 6:49 PM EDT Return to the ER for any worsening symptoms Continue taking Keflex and Bactrim as directed from urgent care Follow-up with your PCP and neurosurgery for further evaluation * Attachments The following attachments cannot be sent through Care Everywhere. * Abscess: Skin (Cymraes) [facility] Phone: evaluation note* Diagnosis Chest pain, unspecified type- Primary Acute non-recurrent frontal sinusitis documented in this encounter [employer] Phone: evalkotsfe note* Diagnosis Onset Date Resolution Status Acute opioid withdrawal acut e [facility] Work Phone: Evaluation note* Diagnosis Onset Date Resolution Status Acute opioid withdrawal reso lved Desire for detoxification ac coquille Opiate abuse, continuous acu te [facility] Work Phone: Evaluation note* Diagnosis Pain Generalized pain [facility]* Diagnosis Abscess- Primary Cellulitis and abscess of unspecified site documented in this encounter [facility] [employer] Phone: evaluation noteNo assessment information available [facility] Work Phone: Evaluation note* Diagnosis Chest pain, unspecified type- Primary Left wrist pain Pain in joint, forearm [facility] Diagnosis Falls- Primary Unspecified fall Dehydration Altered mental status, unspecified altered mental status type Fall, initial encounter Catatonia Other symptoms involving nervous and musculoskeletal systems Severe manic bipolar 1 disorder with psychotic behavior Bipolar I disorder, most recent episode (or current) manic, severe, specified as with psychotic behavior Polysubstance use disorder Bipolar 1 disorder Bipolar I disorder, most recent episode (or current) unspecified Essential hypertension Unspecified essential hypertension Catatonia Other symptoms involving nervous and musculoskeletal systems Anxiety Anxiety state, unspecified [facility]* Attachments The following attachments cannot be sent through Care Everywhere. * Sinusitis (Cymraes) * Chest Pain (Cymraes) [facility] Work Phone: reason for referral (narrative)* Unlisted Procedure Code (Routine) - New Request Specialty Diagnoses / Procedures Referred By Contac t Referred To Contact Procedures DVT/VTE RISK ASSESSMENT Margareth Harrell MD, MPH [address] [address] Referral ID Status Reason Start Date Expiration Date V isits Requested Visits Authorized [id number] New Request 07/29/2023 08/22/2024 1 1 * Radiology (Routine) - New Request Specialty Diagnoses / Procedures Referred By Contac t Referred To Contact Procedures ECG Margareth Harrell MD, MPH [address] [address] Referral ID Status Reason Start Date Expiration Date V isits Requested Visits Authorized [id number] New Request 07/29/2023 08/22/2024 1 1 * (Routine) Specialty Diagnoses / Procedures Referred By Contac t Referred To Contact [facility] [address] [address] Referral ID Status Reason Start Date Expiration Date Visits Re quested Visits Authorized * (Routine) Specialty Diagnoses / Procedures Referred By Contac t Referred To Contact [facility] [address] [address] Referral ID Status Reason Start Date Expiration Date Visits Re quested Visits Authorized [facility] Summary Purpose Family History No Family History Records Found Relationship Condition Age at Onset Recorded Date/T emeka Unknown Family History?- Unknown October 08, 2018 12:28pm Family History?No pe rtinent history Unknown March 31, 2019 1:09pm Relationship Condition Age at Onset Recorded Date/T emeka Unknown Family History?- Unknown October 08, 2018 11:28am Family History?No pe rtinent history Unknown March 31, 2019 12:09pm Advance Directives No Advanced Directives Records FoundDocuments on File Type Date Recorded Patient Program Assistant Expl anation Advance Directives and Living Will Power of Tissue Technologist Latest Code Status on File Code Status Date Activated Date Inactivated Comments Full Code 07/19/2018 2:05 AM 07/21/2018 3:58 PM Full Code 04/01/2018 6:09 PM 04/04/2018 1:45 PM Full Code 04/01/2018 11:17 AM 04/01/2018 6:05 PM Advance Directive Response Recorded Date/ Time Living Will No July 18, 2021 10:01am Power of Tissue Technologist No July 18 10:01am Advance Directive Response Recorded Date/ Time Living Will No July 18, 2021 1:02pm Power of Tissue Technologist No July 18 1:02pm Advance Directive Response Recorded Date/ Time Living Will No September 06, 2021 7 :59am Power of Tissue Technologist No September 06, 2021 7:59am Advance Directive Response Recorded Date/ Time Living Will No September 06, 2021 1 0:38am Power of Tissue Technologist No September 06, 2021 10:38am Documents on File Type Date Recorded Patient Program Assistant Expl anation ACP-Advance Directive ACP-Power of Tissue Technologist Advance Directive Response Recorded Date/ Time Living Will No May 24 12:32am Power of Tissue Technologist No May 24, 2023 12:32am Advance Directive Response Recorded Date/ Time Living Will No May 27 8:42am Power of Tissue Technologist No May 27, 2023 8:42am Advance Directive Response Recorded Date/ Time Living Will No July 17, 2023 11:43am Power of Tissue Technologist No July 16 11:43am Latest Code Status on File Code Status Date Activated Date Inactivated Comments Full Code 07/29/2023 5:19 PM Advance Directive Response Recorded Date/ Time Living Will No August 09, 2023 5:35pm Power of Tissue Technologist No August 08 5:35pm Hospital Course Note Patient Name: Fransisco Nichols ate of : 1975 Date: 04/01/18 Discharge Summary Admit date: 04/01/2018 Discharge date and time: 04/04/18 Admitting Physician: Rashel Travis MD Admission Diagnoses: Bilateral knee osteoarthritis Discharge [...] for any inc (more content not included)... Chief Complaint and Reason for Visit Chief Complaint OPIATE WITHDRAWAL DETOX Reason for Visit Acute opioid withdra wal Chief Complaint OPIATE WITHDRAWAL DETOX OPIATE WITHDRAWAL OPIATE WITHDRAWAL Reason for Visit Acute opioid withdra wal Chief Complaint OPIATE WITHDRAWAL DETOX OPIATE WITHDRAWAL OPIATE WITHDRAWAL OPOID WITHDRAWAL Reason for Visit Acute opioid withdra wal Desire for detoxification Opiate abuse, continuous Chief Complaint OPIATE WITHDRAWAL DETOX OPIATE WITHDRAWAL OPIATE WITHDRAWAL OPOID WITHDRAWAL OPOID WITHDRAWAL OPOID WITHDRAWAL Reason for Visit Acute opioid withdra wal Desire for detoxification Opiate abuse, continuous Chief Complaint anxiety Chief Complaint anxiety mental health Chief Complaint anxiety mental health ALTERED MENTAL Chief Complaint anxiety mental health ALTERED MENTAL MENTAL HEALTH Reason for Referral Specialty Diagnoses / Procedures Referred By Contac t Referred To Contact Procedures ECG Elyssa High, DIET TECH-PACK OUT OPERATOR [address] [place] [address] Referral ID Status Reason Start Date Expiration Date V isits Requested Visits Authorized [id number] New Request 07/21/2023 08/14/2024 1 1 Additional Source Comments (unrecognized sect ion and content) No Status Records FoundNo Status Records FoundNo Status Records FoundNo Status Records FoundNo Status Records FoundNo Status Records FoundNo Status Records FoundNo Status Records Found INFORMATION SOURCE (unrecogn ized section and content) DATE CREATED AUTHOR 04/20/2018 [facility] ([place]) DATE CREATED AUTHOR AUTHOR'S ORGANIZ ATION 05/22/2018 [facility] DATE CREATED AUTHOR AUTHOR'S ORGANIZ ATION 09/11/2018 [facility] DATE CREATED AUTHOR AUTHOR'S ORGANIZ ATION 02/27/2022 [facility] DATE CREATED AUTHOR AUTHOR'S ORGANIZ ATION 07/17/2023 [facility] DATE CREATED AUTHOR AUTHOR'S ORGANIZ ATION 07/28/2023 [facility] DATE CREATED AUTHOR AUTHOR'S ORGANIZ ATION 08/17/2023 [facility] DATE CREATED AUTHOR AUTHOR'S ORGANIZ ATION 08/22/2023 [facility] Reason for Visit (unrecogniz ed section and content) Reason Comments Chest Pain in teen challenge, c /o CP with SOB, RIGHT SIDED WORSE WITH DEEP BREATH Reason Comments Abscess Pt presents to ED wi left forearm abscess. Pt started on antibiotics from urgent care. Pt states he started having itching on Sunday Reason Comments Chest Pain From [facility] wit h chest pain, given 1 nitroglycerin tab and 4 baby aspirin with questionable relief of chest pain. Had gone out to smoke and developed sharp chest pain that traveled up right arm. Brought in by medic 815. At [facility] for confusion. Reason Comments Fatigue Pt arrived via EMS f rom [facility] due to generalized weakness for 1 week requiring the use of a wheelchair. Pt reports neck pain 10/10 due to fall today. Pt reports he has not been able to eat for one week due to not being able to move my mouth. Specialty Diagnoses / Procedures Referred By Angelica t Referred To Contact Diagnoses Dehydration Falls Fall, initial encounter Altered mental status, unspecified altered mental status type Margareth Harrell MD, MPH [facility] [address] [place] [address] [facility] [address] [place] [address] Referral ID Status Reason Start Date Expiration Date Visits Re quested Visits Authorized [id number] 1 1 Goals (unrecognized section and content) Goals may be documented in a n alternate sectionGoals may be documented in an alternate sectionGoals may be documented in an alternate sectionGoals may be documented in an alternate sectionGoals may be documented in an alternate sectionGoals may be documented in an alternate sectionGoals may be documented in an alternate sectionGoals may be documented in an alternate sectionGoals may be documented in an alternate section Care Teams (unrecognized sec tion and content) Waste Disposal Leakage Tester Relationship Specialty Start Date End Date Niya Camara MD [address] [place] [address] PCP - General Hospitalist 07/22/18 Waste Disposal Leakage Tester Relationship Specialty Start Date End Date Niya Camara MD [address] [place] [address] PCP - General Hospitalist 07/22/18 Waste Disposal Leakage Tester Relationship Specialty Start Date End Date Niya Camara MD [address] [place] [address] PCP - General Hospitalist 07/22/18 Waste Disposal Leakage Tester Relationship Specialty Start Date End Date Niya Camara MD [address] [place] [address] PCP - General Hospitalist 07/22/18 Waste Disposal Leakage Tester Relationship Specialty Start Date End Date Niya Camara MD PCP - General Hospitalist 07/22/18 Team Status: Active Member Role Status Dates No Primary Care Physician Family Provider Active [facility] Primary Care Provider A ctive Team Status: Inactive Member Role Status Dates [facility] Primary Care Provider A ctive Dr. Grady Glez , DO Emergency Provider Active Team Status: Inactive Member Role Status Dates [facility] Primary Care Provider A ctive Dr. Steve Hebert , DO Emergency Provider Active Team Status: Inactive Member Role Status Dates [facility] Primary Care Provider A ctive Dr. Grady Glez , DO Attending Provider, Emergency Anselmo maldonado Active Team Status: Inactive Member Role Status Dates [facility] Primary Care Provider A ctive Dr. Steve Hebert , DO Attending Provider, Emergency Pro vider Active Team Status: Inactive Member Role Status Dates [facility] Primary Care Provider A ctive Dr. Meeta Roberts MD Emergency Provider Active Scheduled Active and Recently Administ ered Medications (unrecognized section and content) Medication Order 02/22/2022 02/23/2022 02/24/2022 lidocaine 1 % injection 5 mL (COMPLETED) 5 mL, IntraDERmal, ONCE, 1 dose, On Sun02/24/22 at 1900 1853 (Given by Other - Provider: Pradeep Castellanos RN - Comment: used by Olman FITZPATRICK) PRN Medication Order 07/19/2023 07/20/2023 07/21/2023 Acetaminophen (TYLENOL) tablet 650 mg 650 mg, Oral, EVERY 6 HOURS NEEDED, Starting on 07/21/23 at 1705, Until 07/21/23 at 2227, Mild Pain, Maximum dose of acetaminophen is 4000 mg from all sources in 24 hours. Ibuprofen (MOTRIN) tablet 600 mg 600 mg, Oral, EVERY 6 HOURS NEEDED, Starting on 07/21/23 at 1705, Until 07/21/23 at 2227, Moderate Pain, Give with food Nicotine (NICORETTE) gum 4 mg 4 mg, Oral, ADMINISTER DIRECTED, Starting on 07/21/23 at 1705, Until 07/21/23 at 2227, Smoking cessation, May have 1 piece of gum every 1-2 hours with maximum of 24 pieces in 24 hours. Patient may self-administer. risperiDONE (risperDAL M-TABS) disintegrating tablet 2 mg(Linked Group 1) 2 mg, Oral, EVERY 4 HOURS NEEDED, Starting on 07/21/23 at 1706, Until 07/21/23 at 2227, Agitation, Maximum cumulative dose of Risperidone is 6 mg per 24 hours. Ziprasidone (GEODON) injection 20 mg(Linked Group 1) 20 mg, Intramuscular, EVERY 4 HOURS NEEDED, Starting on 07/21/23 at 1706, Until 07/21/23 at 2227, Agitation and patient is unwilling or unable to take PO medication, Maximum cumulative dose of Ziprasidone is 40mg per 24 hours. Notify physician if given IM. Reconstitute 20 milligram (mg) ziprasidone mesylate vial with 1.2 milliliters (mL) of sterile water for injection. Shake vigorously until all drug is dissolved. Reconstituted solution contains 20 mg/mL. Discard any unused solution. Linked Groups Order Group 1: risperiDONE (risperDAL M-TABS) disintegrating tablet 2 mgJump to med 2 mg, Oral, EVERY 4 HOURS NEEDED, Starting on 07/21/23 at 1706, Until 07/21/23 at 2227, Agitation, Maximum cumulative dose of Risperidone is 6 mg per 24 hours. Or Ziprasidone (GEODON) injection 20 mgJump to med 20 mg, Intramuscular, EVERY 4 HOURS NEEDED, Starting on 07/21/23 at 1706, Until 07/21/23 at 2227, Agitation and patient is unwilling or unable to take PO medication, Maximum cumulative dose of Ziprasidone is 40mg per 24 hours. Notify physician if given IM. Reconstitute 20 milligram (mg) ziprasidone mesylate vial with 1.2 milliliters (mL) of sterile water for injection. Shake vigorously until all drug is dissolved. Reconstituted solution contains 20 mg/mL. Discard any unused solution. Scheduled Medication Order 07/30/2023 07/31/2023 08/01/2023 amLODIPine (NORVASC) tablet 5 mg 5 mg, Oral, DAILY, First dose (after last modification) on 07/30/23 at 1045, Until Discontinued 1115 (Given - Provider: Lexy Dominguez RN) 0846 (Given - Provider: Joanie Zabala RN) 0826 (Given - Provider: Xochitl Ayala RN) Diclofenac sodium (VOLTAREN) 1 % gel 2 g 2 g, Topical, 4 TIMES DAILY, First dose on Sun07/29/23 at 2100, Until Discontinued, Apply to neck and legs. Avoid showering/bathing for at least 1 hour after the application. Use dosing card to measure 2g (2.25 inches) and 4g (4.5 inches) dose. 0849 (Given - Provider: Lexy Dominguez RN)1403 (Given - Provider: Lexy Dominguez RN)1821 (Given - Provider: Lexy Dominguez RN)204 (Given - Provider: Kayleigh Michaud RN) 0850 (Given - Provider: oJanie Zabala RN)1426 (Not Given - Provider: Joanie Zabala RN - Reason: Patient sleeping - Comment: Pt has been asleep. Becomes very anxious when awake.)173 (Not Given - Provider: Carlos Hobbs RN - Reason: Patient/family refused)2033 (Given - Provider: Kayleigh Michaud RN) 0959 (Not Given - Provider: Xochitl Ayala RN - Reason: Medication not available - Comment: Not in pts med bin; Pharmacy contacted to dispense)1300 (Canceled Entry - Provider: System Discharge - Comment: Automatically canceled at discontinue of medication order) diphenhydrAMINE (BENADRYL) tablet 50 mg (COMPLETED) 50 mg, Oral, ONCE, 1 dose, On Sun07/30/23 at 0215 0155 (Given - Provider: Radha Ann RN) donepezil (ARICEPT) tablet 5 mg (CANCELED) 5 mg, Oral, DAILY, First dose on Sun07/30/23 at 0900, Until Discontinued 0842 (Given - Provider: Lexy Dominguez RN) Enoxaparin Sodium (LOVENOX) injection 40 mg(Linked Group 1) 40 mg, Subcutaneous, DAILY, First dose on Sun07/30/23 at 0900, Until Discontinued, For SUBCUTANEOUS route: alternate injection sites between left and right abdominal wall, pinching location and avoiding area around navel., Indications: DVT/PE prophylaxis 0849 (Given - Provider: Lexy Dominguez RN) 0846 (Given - Provider: Joanie Zabala RN) 0826 (Given - Provider: Xochitl Ayala, LISA) hydrOXYzine HCl (ATARAX) tablet 25 mg (COMPLETED) 25 mg, Oral, ONCE, 1 dose, On Sun07/30/23 at 0430 0425 (Given - Provider: Radha Ann RN) Ketorolac (TORADOL) injection 15 mg (COMPLETED) 15 mg, Intravenous, ONCE, 1 dose, On Sun07/30/23 at 0500 0439 (Given - Provider: Radha Ann RN) Lisinopril (PRINIVIL) tablet 20 mg 20 mg, Oral, DAILY, First dose on Sun07/30/23 at 0900, Until Discontinued, On hold since Sun07/29/2023 at 2101 until manually unheld 0900 (Automatically Held - Provider: Keegan Jiang MD) 0900 (Automatically Held - Provider: Keegan Jiang MD) 0900 (Automatically Held - Provider: Keegan Jiang MD)1529 (Unheld by provider - Provider: System Discharge) LORazepam (ATIVAN) tablet 1 mg (CANCELED) 1 mg, Oral, EVERY 8 HOURS, First dose on Sun07/30/23 at 1400, Until Discontinued 1402 (Given - Provider: Lexy Dominguez RN)2044 (Given - Provider: Kayleigh Michaud RN) 0556 (Given - Provider: Kayleigh Michaud RN) LORazepam (ATIVAN) tablet 2 mg 2 mg, Oral, EVERY 8 HOURS, First dose (after last modification) on Sun07/31/23 at 1400, Until Discontinued 1440 (Given - Provider: Joanie Zabala RN)2033 (Given - Provider: Kayleigh Michaud RN) 0543 (Given - Provider: Kayleigh Michaud RN)1134 (Given - Provider: Xochitl Ayala, LISA - Comment: Dr Yanely hogue with dose being given early d/t increased anxiety) Melatonin tablet 6 mg 6 mg, Oral, DAILY AT BEDTIME, First dose (after last modification) on Sun07/30/23 at 2100, Until Discontinued 2044 (Given - Provider: Kayleigh Michaud RN) 2033 (Given - Provider: Kayleigh Michaud, LISA) Multivitamin w/ minerals (THERAPEUTIC-M) tablet 1 tablet 1 tablet, Oral, DAILY, First dose on Sun07/30/23 at 0900, Until Discontinued 0842 (Given - Provider: Lexy Dominguez RN) 0846 (Given - Provider: Joanie Zabala RN) 0825 (Given - Provider: Xochitl Ayala, LISA) Nicotine (NICODERM CQ) 21 MG/24HR patch 1 patch(Linked Group 2) 1 patch, Transdermal, EVERY 24 HOURS, First dose on 07/29/23 at 1900, Until Discontinued, Apply patch to hairless skin site on upper body or arm. Rotate sites for each application. Do not cut or alter patch. Remove patch after duration of 16-24 hours. To dispose, fold adhesive ends together. 182 (Patch Applied - Provider: Lexy Dominguez RN) 173 (Patch Removed - Provider: Carlos Hobbs RN)173 (Patch Applied - Provider: Carlos Hobbs RN) 1329 (Due: Patch Removed - Provider: System Discharge - Comment: Time automatically adjusted from order being discontinued) QUEtiapine (SEROquel) tablet 50 mg 50 mg, Oral, DAILY AT BEDTIME, First dose on Sun07/31/23 at 2100, Until Discontinued 2033 (Given - Provider: Kayleigh Michaud RN) Venlafaxine (EFFEXOR-XR) capsule XR 75 mg 75 mg, Oral, DAILY WITH BREAKFAST, First dose on Sun07/30/23 at 0745, Until Discontinued, Slow release product. Do not chew or crush 0849 (Given - Provider: Lexy Dominguez RN) 0846 (Given - Provider: Joanie Zabala RN) 0826 (Given - Provider: Xochitl Ayala, LISA) VERIFY LINKED PATCH PLACEMENT(Linked Group 2) Other, EVERY 12 HOURS, First dose on Sun07/29/23 at 2100, Until Discontinued, Confirm continued adhesion of nicotine 21 mg/24hr patch at documented site. 1118 (Patch Verify - Provider: Lexy Dominguez RN)2104 (Patch Verify - Provider: Kayleigh Michaud RN) 0847 (Patch Verify - Provider: Joanie Zabala RN - Comment: Not in place)2041 (Patch Verify - Provider: Kayleigh Michaud RN) 0827 (Patch Verify - Provider: Xochitl Ayala, LISA) Continuous Medication Order 07/30/2023 07/31/2023 08/01/2023 Lactated ringers IV solution () Intravenous, at 100 mL/hr, CONTINUOUS, Starting on Sun07/29/23 at 1930, Until Sun07/30/23 at 0729 0246 (Rate/Dose Verify - Provider: Radha Ann RN)0443 ($$New Bag$$ - Provider: Radha Ann RN)0854 (Stopped - Provider: Lexy Dominguez RN) PRN Medication Order 07/30/2023 07/31/2023 08/01/2023 Acetaminophen (TYLENOL) tablet 650 mg 650 mg, Oral, EVERY 6 HOURS NEEDED, Starting on 07/29/23 at 1718, Until Sun08/01/23 at 1529, Mild Pain, Oral temp > 100.4 F, Maximum dose of acetaminophen is 4000 mg from all sources in 24 hours. 0751 (Given - Provider: Carlos Hobbs RN) alum/mag hydrox.-simethicone oral suspension 30 mL 30 mL, Oral, EVERY 6 HOURS NEEDED, Starting on 07/29/23 at 1718, Until Sun08/01/23 at 1529, Indigestion, Per 5 mL is equivalent to: (Alum-Mag Hydroxide 200-225 mg and Simethicone 20 mg) and (Alum-Mag Hydroxide 200-200 mg and Simethicone 20 mg) Benztropine (COGENTIN) tablet 1 mg 1 mg, Oral, EVERY 12 HOURS NEEDED, Starting on Tu07/31/23 at 1036, Until Sun08/01/23 at 1529, Extra-pyramidal Symptoms 1128 (Given - Provider: Joanie Zabala RN) Cyclobenzaprine (FLEXERIL) tablet 5 mg 5 mg, Oral, 3 TIMES DAILY NEEDED, Starting on 07/30/23 at 1031, Until Sun08/01/23 at 1529, Moderate Pain, Severe Pain, Mild Pain, Muscle spasms 1115 (Given - Provider: Lexy Dominguez RN)2045 (Given - Provider: Kayleigh Michaud RN) 0850 (Given - Provider: Joanie Zabala RN) guaiFENesin (ROBITUSSIN) oral solution 400 mg 400 mg, Oral, EVERY 6 HOURS NEEDED, Starting on Sun07/29/23 at 1718, Until Sun08/01/23 at 1529, Cough, Congestion hydrOXYzine HCl (ATARAX) tablet 50 mg 50 mg, Oral, EVERY 6 HOURS NEEDED, Starting on 07/30/23 at 0742, Until Sun08/01/23 at 1529, Anxiety, Insomnia 0850 (Given - Provider: Joanie Zabala RN) 0825 (Given - Provider: Xochitl Ayala, LISA) Ibuprofen (MOTRIN) tablet 600 mg 600 mg, Oral, EVERY 6 HOURS NEEDED, Starting on 07/30/23 at 1031, Until Sun08/01/23 at 1529, Mild Pain, Moderate Pain, Severe Pain, Give with food nicotine (COMMIT) lozenge 4 mg 4 mg, Buccal, EVERY 2 HOURS NEEDED, Starting on 07/30/23 at 1235, Until Sun08/01/23 at 1529, Smoking cessation, Do not chew or swallow; allow to dissolve slowly (~20 to 30 minutes); minimize swallowing and occasionally move lozenge from one side of the mouth to the other until completely dissolved. Do not eat or drink 15 minutes before using or while lozenge is in mouth. Patient may self-administer. 1402 (Given - Provider: Lexy Dominguez RN)1824 (Given - Provider: Lexy Dominguez RN) 0758 (Given - Provider: Adrienne Briseno RN) 0723 (Given - Provider: Xochitl Ayala, LISA) Nicotine (NICORETTE) gum 4 mg 4 mg, Oral, EVERY 2 HOURS NEEDED, Starting on 07/29/23 at 1829, Until Sun08/01/23 at 1529, Smoking cessation, Patient may self-administer. 0031 (Given - Provider: Radha Ann RN)1128 (Given - Provider: Lexy Dominguez RN) Ondansetron (ZOFRAN) tablet 4 mg(Linked Group 3) 4 mg, Oral, EVERY 6 HOURS NEEDED, Starting on Sun07/29/23 at 1718, Until Sun08/01/23 at 1529, Nausea / Vomiting, 1st line for Nausea/Vomiting Ondansetron 4mg/2ml (ZOFRAN) injection 4 mg(Linked Group 3) 4 mg, Intravenous, EVERY 6 HOURS NEEDED, Starting on Sun07/29/23 at 1718, Until Sun08/01/23 at 1529, Nausea / Vomiting, 1st line for Nausea/Vomiting Sodium chloride 0.9% IV solution 250 mL Intravenous, at 20 mL/hr, NEEDED, Starting on Sun07/29/23 at 1718, Until Sun08/01/23 at 1529, Carrier Fluid - See Admin. Inst, 250mL 0.9NS to be used as carrier fluid for intermittent small volume or piggyback medication administration as needed. Infusion rate of the carrier fluid should be set at 20 mL/hr unless the rate as the intermittent medication is less than 20 mL/hr. For intermittent medications with a rate less than 20 mL/hr set the carrier fluid at that rate of the intermittent or piggy back medication. Linked Groups Order Group 1: Enoxaparin Sodium (LOVENOX) injection 40 mgJump to med 40 mg, Subcutaneous, DAILY, First dose on Sun07/30/23 at 0900, Until Discontinued, For SUBCUTANEOUS route: alternate injection sites between left and right abdominal wall, pinching location and avoiding area around navel., Indications: DVT/PE prophylaxis And PLATELET COUNT (CANCELED) Routine, EVERY 3 DAYS AM LAB, First occurrence on Sun08/01/23 at 0500, Until Specified, New collection Group 2: Nicotine (NICODERM CQ) 21 MG/24HR patch 1 patchJump to med 1 patch, Transdermal, EVERY 24 HOURS, First dose on Sun07/29/23 at 1900, Until Discontinued, Apply patch to hairless skin site on upper body or arm. Rotate sites for each application. Do not cut or alter patch. Remove patch after duration of 16-24 hours. To dispose, fold adhesive ends together. And VERIFY LINKED PATCH PLACEMENTJump to med Other, EVERY 12 HOURS, First dose on Sun07/29/23 at 2100, Until Discontinued, Confirm continued adhesion of nicotine 21 mg/24hr patch at documented site. Group 3: Ondansetron 4mg/2ml (ZOFRAN) injection 4 mgJump to med 4 mg, Intravenous, EVERY 6 HOURS NEEDED, Starting on Sun07/29/23 at 1718, Until Sun08/01/23 at 1529, Nausea / Vomiting, 1st line for Nausea/Vomiting Or Ondansetron (ZOFRAN) tablet 4 mgJump to med 4 mg, Oral, EVERY 6 HOURS NEEDED, Starting on Sun07/29/23 at 1718, Until Sun08/01/23 at 1529, Nausea / Vomiting, 1st line for Nausea/Vomiting FOR RECORDS PERTAINING TO PATIENTS WHO ARE [...] BE BASED ON THE PRIMARY CLINICAL RECORDS. [facility]. provides no warranty or guarantee of the accuracy or completeness of information in this document.
--- NOTE | 2025-03-17 21:57 | EDS_ITS ---
HPI HPI - URI History of Present Illness Chief Complaint: Cough Narrative Narrative: 49-year-old male who denies significant past medical history except for being a smoker presents with upper respiratory infection type symptoms for the last week and a half. He states has had cough but denies any fever or chills, no body aches. He started going hoarse yesterday. He has a sore throat as well. His main concern is that he feels short of breath at rest and especially on exertion he gets fatigued. He denies any chest pain, no swelling of his legs or other symptoms. ROS ROS ED ROS Narrative Review of systems is positive for cough, upper respiratory infection type symptoms with sore throat, positive dyspnea on exertion and shortness of breath. No fevers or chills, no nausea or vomiting, denies other symptoms. [facility] Medical History Opiate abuse, continuous Hepatitis C Hepatitis B Opiate abuse, continuous Drug abuse Amphetamine use disorder, moderate, dependence Benzodiazepine use and dependence Polysubstance dependence including opioid type drug, continuous use Home Medications ?Medication ?Instructions ?Recorded ?Last Taken ?Type buprenorphine 8 mg-naloxone 2 mg 2 film sublingual CHANTELLE LY opiod 05/27/23 Unknown History sublingual film dependence albuterol sulfate 90 mcg/actuation 1 - 2 puff inhalati on Q4H PRN PRN 03/17/25 Unknown Rx aerosol inhaler (Ventolin HFA) Wheezing #1 ea prednisone 20 mg tablet 40 mg (2 x 20 mg) PO DAILY 7 days 03/17/25 Unknown Rx #14 tabs Allergy/AdvReac Type Severity Reaction Status Date / Time No Known Allergies Allergy Verified 03/17/25 20:49 Surgical History Hx of total knee replacement S/P left knee surgery Social History Smoking Status: Current every day smoker tobacco type: cigarettes EXAM Physical Exam Narrative Exam Narrative: Afebrile. Vital signs noted. Nontoxic-appearing. Cardiovascular examination reveals a regular rate and rhythm. He has expiratory wheezing at the bilateral bases right greater than left with coarse breath sounds and rhonchi. Abdomen soft and nontender with normoactive bowel sounds. No pedal edema bilateral lower extremities. Neurological examination nonfocal, nonlateralizing. Const Vital Signs: 03/17/25 20:48 03/17/25 21:19 03/17/25 21:19 Temperature 97.9 F Temperature Source Oral Pulse Rate 91 Respiratory Rate 26 H Respiratory Effort Normal Non-Labored Respiratory Depth Normal Respiratory Pattern Normal Blood Pressure 132/106 H Blood Pressure Mean 114 Pulse Ox 96 95 Oxygen Delivery Method Room Air Room Air Room Air 03/17/25 22:10 03/17/25 23:00 03/17/25 23:09 Temperature 97.9 F Temperature Source Pulse Rate 87 89 89 Respiratory Rate 22 H 20 H 20 H Respiratory Effort Respiratory Depth Respiratory Pattern Tachypnea Blood Pressure 112/75 112/75 Blood Pressure Mean 87 87 Pulse Ox 96 96 Oxygen Delivery Method Room Air MDM MDM MDM Narrative Medical decision making narrative: Smoking cessation was discussed. Differential diagnosis includes but not limited to pneumonia versus bronchitis with bronchospasm versus pneumothorax. He has equal breath sounds bilaterally and pulse ox 95 to 96% on room air so clinically feel he has a pneumothorax. Chest x-ray 2 views will be obtained and he will be given prednisone 60 mg orally as well as a DuoNeb aerosolized treatment. Upon repeat examination at approximately 2310, he states he feels improved after the aerosolized treatment as well as the prednisone. Chest x-ray and 2 views interpreted by myself independently shows no pneumonia or pneumothorax. I do not feel antibiotics are indicated. I reviewed the radiology report which confirms my independent interpretation and comments on no acute process. I do not feel that he needs a respiratory swab, as he has been sick for the last 1- 1/2 weeks. He is outside the window for any antivirals for COVID or influenza. At this point in time, he was given an albuterol MDI 2 puffs inhaled here in the emergency department and remainder dispensed to him. I also wrote him prescriptions for another albuterol inhaler and for a prednisone burst of 40 mg daily for the next week. I feel he can be discharged safely home with follow- up. Return instructions were reviewed. Disposition is discharged home in stable condition. History & Record Review Discussion w/independent historian: Patient Additional record(s) reviewed:: Prior ED visit (Last ED visit 2023) Radiography Chest X-Ray - ED: 2 View, Read by ED Physician and Read by Radiologist Diagnostic Testing: Clinical Impression(s) from Imaging Studies Chest X-Ray 03/17/25 22:20 IMPRESSION: As above. Reading Location: [facility] Discharge Plan Triage Chief Complaint: Cough ED Provider: Mj Rutherford Dx/Rx/DC Orders Clinical Impression: Bronchitis, Short of breath on exertion Instructions: ED Bronchitis with Wheezing (Adult), ED Bronchitis, No Antibiotic (Adult), ED Dyspnea Prescriptions: New prednisone 20 mg tablet 40 mg PO DAILY 7 Days Qty: 14 0RF albuterol sulfate [Ventolin HFA] 90 mcg/actuation HFA aerosol inhaler 1 - 2 puff inhalation Q4H PRN PRN (Reason: Wheezing) Qty: 1 0RF No Action buprenorphine-naloxone 8-2 mg film 2 film sublingual DAILY Patient Comments: DISSOLVE 2 films UNDER THE TONGUE EVERY DAY DIRECTED Primary Care Provider: [facility]al Lyons [facility] - 1 Week if not improving Activity Restrictions/Additional Instructions: Stop smoking. Use albuterol inhaler 1 to 2 puffs inhaled every 4-6 hours as needed for shortness of breath. Return to the emergency department with sustained high fever, increased difficulty breathing, new or worsening symptoms. Print Language: Finnish Disposition Disposition: Home, Self Care
[2025-03-17 22:10] VITALS: PULSE 87; RESP 22
--- NOTE | 2025-03-17 22:20 | RAD_ITS ---
PROCEDURE: CHEST PA AND LATERAL 03/17/2025 REASON FOR EXAM: COUGH TECHNIQUE: Procedure Code: RADCXR Modality: DX Procedure: CHEST PA AND LATERAL FINDINGS: The lungs are clear. The cardiomediastinal silhouette appears unremarkable. No acute osseous abnormality. RAD/Chest PA and Lateral IMPRESSION: As above. Reading Location: [id number]
[2025-03-17 23:00] VITALS: BP 112/75; PULSE 89; RESP 20; O2SAT 96
[2025-03-17 23:09] VITALS: BP 112/75; PULSE 89; RESP 20; TEMP 36.6; O2SAT 96
[2025-03-17] MEDS: Albuterol Sulfate 8 gm Inhaler (60 puffs) 2 PUFF INHALATION (23:18)
== END 2025-03-17 23:19 | disposition home or self-care (01) ==
PROVIDERS: Emergency Provider Emergency Medicine; Visit Provider Emergency Medicine
DX: J40 Bronchitis, not specified as acute or chronic (principal); R05.9 Cough, unspecified; R06.02 Shortness of breath; F17.210 Nicotine dependence, cigarettes, uncomplicated
CPT/HCPCS: 71046; 93005; 94640; 99282

== ENCOUNTER 2025-04-01 13:13 | Emergency (ER) | payer MEDICAID, SELFPAY ==
[2025-04-01] VITALS (7 sets, daily range): BP systolic 97–134; BP diastolic 65–84; PULSE 76–115; RESP 16–20; TEMP 36.5–36.6; O2SAT 92–96; BMI 38.7
[2025-04-01 14:00] LABS: Hematocrit 47.0 % (40-54); Hemoglobin 16.6 g/dL (13.0-16.5); Immature Granulocytes Count 0.020 X10^3/uL (0.0-0.0); Mean Corp Hgb Conc 35.3 g/dL (32-36); Mean Corpuscular Volume 82.6 fL (80-94); Mean Platelet Vol. 10.5 fl (6.2-12.0); NRBC Flagged by Analyzer 0 % (0-5); Platelet Count 287 K/mm3 (150-450); RBC Distribution Width CV 13.3 % (11.6-14.6); RBC Distribution Width SD 39.7 fl (35.1-43.9); Red Blood Count 5.69 M/mm3 (4.6-6.2); White Blood Count 9.2 K/mm3 (4.4-11.0)
[2025-04-01] MEDS: Albuterol 2.5 MG/3 ML VIAL.NEB. INHALATION ×3 (14:15)
[2025-04-01 14:30] LABS: Anion Gap 17 (5-15); BUN 16 mg/dL (4-19); BUN/Creat Ratio 20.7 RATIO (10-20); Calcium,Total 9.3 mg/dL (7.6-11.0); Carbon Dioxide 19.2 mmol/L (21.0-32.0); Chloride 96 mmol/L (98-108); Estimated Creatinine Clearance 180.52 ml/min (50-250); Glucose 146 mg/dL (70-99); Potassium 3.8 mmol/L (3.3-5.1)
--- NOTE | 2025-04-01 14:50 | RAD_ITS ---
PROCEDURE: CHEST PA AND LATERAL 04/01/2025 REASON FOR EXAM: NONPRODUCTIVE COUGH, WHEEZING, MG TECHNIQUE: Procedure Code: RADCXR Modality: DX Procedure: CHEST PA AND LATERAL COMPARISON: March 17, 2025. FINDINGS: Hardware: EKG electrodes are seen. Heart: The heart size is normal. Mediastinum: The mediastinal contour is unremarkable. Lungs: Hyperinflation. The lungs are clear. Bones: The bones are unremarkable. RAD/Chest PA and Lateral IMPRESSION: NO ACUTE FINDINGS. Reading Location: [place] [id number]
--- NOTE | 2025-04-01 16:13 | EDS_ITS ---
HPI History of Present Illness Chief Complaint: Shortness of Breath Detail of Chief Complaint: Shortness of breath, cough that is nonproductive and MG Informant: patient Onset/Context/Timing Onset: Today Context: gradual and activity on onset Timing: Intermittent and Waxes and wanes Quality: Positive for Dyspnea on exertion and Wheezing; Negative for Orthopnea or PND Current Severity: Mild Maximum Severity: Severe Worsened by: Exertion and Coughing; Not Worsened By Lying flat Relieved by: Nothing Associated Symptoms cough and white sputum; Negative for rhinorrhea, post nasal drip, ear pain, fever, sore throat, subjective, chills, sweats, clear sputum, yellow sputum or green sputum Chest Pain: Positive for None Narrative Narrative: Patient is a 50-year-old male. He has no history of coronary artery disease, VTE and no risk factors for VTE. Patient denies headache, visual disturbance, ocular or auditory symptoms. Patient has mild congestion and mild sore throat. He has a mild cough. The cough is essentially nonproductive. He has no discomfort with breathing. He denies orthopnea or PND. He has no known history of coronary artery disease. He denies abdominal pain, nausea, vomiting or diarrhea. He denies leg pain, swelling or discoloration. PE Risk Factors: Negative for Cancer, OCP + Smoking + > 35, Prior DVT or PE, Recent immobilization, Recent surgery or Recent travel Prior similar symptoms: No Recent Illness/Hospitalization: Yes (Bronchitis 2 weeks ago, patient was seen March [address] Sofi buchanan) [facility] Medical History Opiate abuse, continuous Hepatitis C Hepatitis B Opiate abuse, continuous Drug abuse Amphetamine use disorder, moderate, dependence Benzodiazepine use and dependence Polysubstance dependence including opioid type drug, continuous use Home Medications ?Medication ?Instructions ?Recorded ?Last Taken ?Type buprenorphine 8 mg-naloxone 2 mg 2 film sublingual CHANTELLE LY opiod 05/27/23 Unknown History sublingual film dependence albuterol sulfate 90 mcg/actuation 1 - 2 puff inhalati on Q4H PRN PRN 03/17/25 Unknown Rx aerosol inhaler (Ventolin HFA) Wheezing #1 ea prednisone 20 mg tablet 40 mg (2 x 20 mg) PO DAILY 7 days 03/17/25 Unknown Rx #14 tabs doxycycline monohydrate 100 mg 100 mg PO BID #14 CAPSU LES 04/01/25 Unknown Rx capsule Allergy/AdvReac Type Severity Reaction Status Date / Time No Known Allergies Allergy Verified 04/01/25 13:16 Surgical History Hx of total knee replacement S/P left knee surgery Social History Smoking Status: Current every day smoker tobacco type: cigarettes ROS ROS ED Constitutional Constitutional ED: Denies chills, fever(s), sweats or weight loss Eyes Eyes: Denies blurry vision, change in vision or diplopia ENT ENT ED: Denies ear pain, rhinorrhea or sore throat Cardiovascular Cardiovascular: Denies chest pain, orthopnea, palpitations, paroxysmal nocturnal dyspnea or racing heartbeat Respiratory/Chest Respiratory/Chest: Reports cough, dyspnea, dyspnea on exertion and sputum; Denies orthopnea or paroxysmal nocturnal dyspnea Gastrointestinal Gastrointestinal: Denies abdominal pain, constipation, diarrhea, melena, nausea or vomiting Genitourinary Genitourinary ED: Denies dysuria, hematuria or urinary frequency Musculoskeletal Musculoskeletal: Denies arthralgias or myalgias Integumentary Denies rash Neurologic Neurologic: Denies headache(s), paresthesias or weakness Endocrine Endocrinology: Denies cold intolerance or heat intolerance Hematologic/Lymphatic Hematologic/Lymphatic: Denies easy bleeding or easy bruising EXAM Physical Exam Const Vital Signs: 04/01/25 13:15 04/01/25 13:16 04/01/25 13:39 Temperature 97.9 F 97.9 F Temperature Source Oral Oral Pulse Rate 115 H 115 H Respiratory Rate 20 H 20 H Respiratory Effort Short of Breath Respiratory Depth Deep Respiratory Pattern Tachypnea Blood Pressure 134/84 H 134/84 H Blood Pressure Mean 100 100 Pulse Ox 96 96 Oxygen Delivery Method Room Air Room Air Room Air 04/01/25 14:16 04/01/25 14:16 04/01/25 15:00 Temperature 97.7 F L 97.7 F L Temperature Source Oral Oral Pulse Rate 93 93 76 Respiratory Rate 20 H 18 16 Respiratory Effort Respiratory Depth Respiratory Pattern Tachypnea Blood Pressure 126/78 H 113/65 Blood Pressure Mean 94 81 Pulse Ox 92 94 Oxygen Delivery Method Room Air Room Air Positive well nourished, well developed, obese and unkempt; Negative for cachectic or contractures General Appearance ED: unkempt, well developed and NAD; Negative for cachectic, contractures or pallor Nutritional Appearance: obese; Negative for cachectic HEENT Reports moist mucous membranes HEENT Narrative: Head is atraumatic and normocephalic. Ears are normal. Nares patent. Posterior pharynx is normal. Uvula is midline. There is no deviation tongue or protrusion. Eyes PERRL and EOMs intact bilaterally General Eye ED: Negative for pale conjunctiva or scleral icterus Neck no lymphadenopathy, supple, no meningeal signs and no JVD Neck Narrative: Trachea is midline. There is no inspiratory expiratory stridor. Patient states he was tested in the past for obstructive sleep apnea negative. Resp normal respiratory effort and clear to auscultation bilaterally Resp Narrative: Patient has diminished breath sounds bilaterally. There may be slight wheeze with forced expiration only. Cardio regular rate, regular rhythm, S1 normal heart sound, S2 normal heart sound and no murmurs Cardio Narrative: Vital signs per triage were elevated however when I examined the patient he was not tachycardic and monitor revealed a sinus rhythm with narrow complex. GI non-tender, non-distended and no masses Extremity normal to inspection Extremity Narrative: There is no asymmetry, swelling, discoloration, leg vein distention, palpable co rds or tenderness along the distribution of the deep venous system. Neuro oriented x3 and CN's II-XII intact bilaterally Sensorium / Orientation: alert Psych mental status grossly normal Appearance: unkempt Thought Process: normal thought process Skin no wounds and skin turgor normal Skin Narrative: Patient is diaphoretic. He states he sweats a lot. General Skin Exam: Negative for jaundice or pallor MDM MDM MDM Narrative Medical decision making narrative: Differential diagnosis would include pneumonia, pneumothorax, doubt CHF since he does not have orthopnea or PND. With him his recent respiratory infection suspect this is infectious. He has no risk factors for PE. Since his heart rate is normal respiratory rate is normal and he has no risk factors he is PERC negative. His Wells score is less than 3. Suspect he was tachycardic as he had to walk up the incline to get to the emergency department. History & Record Review Additional record(s) reviewed:: Prior ED visit (Reviewed Dr. Rutherford's note from February.) and Prior labs Lab Data Attestation: I reviewed the patient's lab results. Lab results narrative: CBC is unremarkable. Electrolyte panel reveals slight decrease in CO2 of 19 and slight elevation of gap at 17. With the new analyzers there is been frequent results that reveal lower CO2 than normal on a higher anion gap. The new norms have not been established. Glucose is elevated at 146. Patient does not have history of diabetes. Labs: Laboratory Results - last 24 hr 04/01/25 13:32 WBC 9.2 RBC 5.69 Hgb 16.6 H Hct 47.0 MCV 82.6 MCH 29.2 MCHC 35.3 RDW Std Deviation 39.7 RDW Coeff of Car 13.3 Plt Count 287 MPV 10.5 Immature Gran % (Auto) 0.200 Neut % (Auto) 49.5 Lymph % (Auto) 41.0 [place] % (Auto) 9.0 Eos % (Auto) 0.2 Baso % (Auto) 0.1 Absolute Neuts (auto) 4.6 Absolute Lymphs (auto) 3.77 Nucleated RBC % 0 Sodium 132 L Potassium 3.8 Chloride 96 L Carbon Dioxide 19.2 L Anion Gap 17 H BUN 16 Creatinine 0.79 Estim Creat Clear Calc 180.52 Est GFR (MDRD) Non-Af 109 BUN/Creatinine Ratio 20.7 H Glucose 146 H Calcium 9.3 Radiography Chest X-Ray - ED: 2 View, Read by ED Physician, Normal, Heart, Mediastinum, Bony Structures and No Acute Disease Diagnostic Testing: Clinical Impression(s) from Imaging Studies Chest X-Ray 04/01/25 14:50 IMPRESSION: NO ACUTE FINDINGS. Reading Location: [id number] Treatment and Re-Evaluation :: When I entered the room at 1623 to inform patient of his results he was asleep. He was not tachycardic, tachypneic or hypoxic. He is on room air. He was reexamined. He is moving significantly more air. There is slight wheeze noted at the end of expiration. He does have an inhaler. Since he has been sick for greater than [address] on short course of doxycycline. He was informed it is in his best interest to quit smoking. He has cut down from 2 packs to 1 pack. Discharge Plan Triage Chief Complaint: Shortness of Breath ED Provider: Reji Smith Dx/Rx/DC Orders Clinical Impression: Acute bronchospasm, Bronchitis, MG (dyspnea on exertion), Tobacco use Instructions: ED Bronchitis with Wheezing (Adult) Prescriptions: New doxycycline monohydrate 100 mg capsule 100 mg PO BID Qty: 14 0RF No Action buprenorphine-naloxone 8-2 mg film 2 film sublingual DAILY Patient Comments: DISSOLVE 2 films UNDER THE TONGUE EVERY DAY DIRECTED prednisone 20 mg tablet 40 mg PO DAILY 7 Days Qty: 14 0RF albuterol sulfate [Ventolin HFA] 90 mcg/actuation HFA aerosol inhaler 1 - 2 puff inhalation Q4H PRN PRN (Reason: Wheezing) Qty: 1 0RF Primary Care Provider: Racheal Quiñones Referrals: Medical Racheal Lyons [Primary Care Provider, Medical] - 3-5 Days if not improving Print Language: Bruneian Disposition Disposition: Home, Self Care
== END 2025-04-01 16:34 | disposition home or self-care (01) ==
PROVIDERS: Emergency Provider Emergency Medicine; Visit Provider Emergency Medicine
DX: J98.01 Acute bronchospasm (principal); J40 Bronchitis, not specified as acute or chronic; R06.09 Other forms of dyspnea
CPT/HCPCS: 71046; 80048; 85025; 94640; 99283; A4216